=== PATIENT | male | born 1945 | race Caucasian/White ===

== ENCOUNTER 2023-07-20 11:38 | Outpatient (CLI) | payer OTHER, SELFPAY ==
--- OUTSIDE RECORDS SUMMARY | 2023-07-20 11:52 | XMS_ITS | Continuity of Care Document ---
Author Name [facility] Organization [facility] Care Team Providers Care Chief Vendor Quality Name Role Phone [facility] Unavailable Unavailable Problems Combined list of problems from Department of Defense and Veterans Affairs facilities. It does not include entries that were removed or entered in error. Problem Status Onset Date Problem Type Date of Resolution Comments Source Anemia (SCT 090056686) Active Condition [facility] ([facility]) Cataract Active Condition [facility] ([facility]) Chronic kidney disease stage 3 Active Condition [facility] ([facility]) COPD - Chronic Obstructive Pulmonary Disease (SCT 40155464) Active Condition [facility] ([facility]) Diabetes Mellitus Type 2 (SCT 24412208) Active Condition [facility] ([facility]) Hyperlipidemia ([facility] 91369800) Active Condition [facility] (OC) Low back pain Active Condition Aug Entered By: CHANDLER CARVER Comment: CT Chest (06/03/2018) showed T12 myeloma lesion and bilateral ribs [facility] (OC) Myeloma Active Condition Aug 22 Entered By: CHANDLER CARVER Comment: Plasma Cell Myeloma (Dx 03/2018) [facility] Seasonal allergy Active Condition [facility] ([facility]) Diagnosis: ICD-10-CM N18.9 Chronic kidney disease, unspecified Active Diagnosis [facility] Diagnosis: ICD-10-CM C90.00 Multiple myeloma not having achieved remission Active Diagnosis [facility] Diagnosis: ICD-10-CM Z23 Encounter for immunization Active Diagnosis [facility] ([facility]) Diagnosis: ICD-10-CM J44.1 Chronic obstructive pulmonary disease w (acute) exacerbation Active Diagnosis [facility] ([facility]) Diagnosis: ICD-10-CM E11.9 Type 2 diabetes mellitus without complications Active Diagnosis [facility] Diagnosis: ICD-10-CM Z00.00 Encntr for general adult medical exam w/o abnormal findings Active Diagnosis [facility] ([facility]) Medications Combined list of outpatient medications from Department of Defense and Veterans Affairs facilities.Medications provided include 1) outpatient medications from the last 15 months, and 2) patient-reported medications. Medication Details Route Status Patient Instructions Prescription Expires Prescription Number Last Dispense Date Ordering Provider Order Date Source ALBUTEROL 90MCG/ACTUA T (CFC-F) INHL,ORAL,8 .5GM DOSE COUNTER INHALE 2 PUFFS BY INHALATI ON EVERY 4-6 HOURS NEEDED FOR IMMEDIAT E RELIEF OF SHORTNES S OF BREATH - SHAKE WELL INHALA TION ACTIVE 11/15/2023 [id number] 3 FRID,CHRI STIE L 2022 [place] [facility] ALBUTEROL 90MCG/ACTUA T (CFC-F) INHL,ORAL,8 .5GM DOSE COUNTER INHALE 2 PUFFS BY INHALATI ON EVERY 4-6 HOURS NEEDED FOR IMMEDIAT E RELIEF OF SHORTNES S OF BREATH - SHAKE WELL INHALA TION DISCONT INUED 09/15/2022 [id number] 2 CHEY SHELBY K 2021 [facility] ([facility]) ALBUTEROL/I PRATROPIUM SOLN,INHL INHALE 3 ML ALBUTERO L 2.5% SOLUTION IN NEBULIZE R BY INHALATI ON TWICE A DAY NEEDED INHALA TION ACTIVE CHEY SHELBY K 2021 [facility] ALLOPURINOL 100MG TAB TAKE ONE-HALF TABLET BY MOUTH EVERY DAY ELEVATED URIC ACID ORALLY DISCONT INUED 11/15/2023 [id number] 3 FRID,[facility] L 2022 [facility] ALLOPURINOL 100MG TAB TAKE 50MG BY MOUTH EVERY DAY ELEVATED URIC ACID ORALLY DISCONT INUED (EDIT) 11/15/2023 [id number] 3 [facility] ASCORBIC ACID TAB TAKE EVERY DAY ACTIVE MERI MORENO 2017 [facility] ASPIRIN 81MG TAB,EC TAKE ONE TABLET BY MOUTH EVERY DAY ORALLY ACTIVE MARK YORK 2007 [facility]) CHOLECALCIF PAPI 25MCG (1,000UNIT) TAB TAKE ONE TABLET BY MOUTH EVERY DAY ORALLY ACTIVE JENNIFER CARVER 2017 [facility] CYANOCOBALA MIN 1000MCG TAB TAKE ONE TABLET BY MOUTH EVERY DAY ORALLY ACTIVE 04/10/2024 [id number] 3 BROWN,CHEY NDA K 2022 [facility] CYANOCOBALA MIN 1000MCG TAB TAKE ONE TABLET BY MOUTH EVERY DAY ORALLY DISCONT INUED 04/08/2023 [id number] 3 FRID,CHRI STIE L 2021 [facility] DEXAMETHASO NE 4MG TAB TAKE FIVE TABLETS BY MOUTH EVERY WEEK WITH FOOD OR MILK. THIS IS A COMPONEN T OF A CHEMOTHE RAPY REGIMEN. ORALLY ACTIVE 08/03/2023 [id number] 3 FRID,CHRI STIE L 2022 [facility] DEXAMETHASO NE 4MG TAB TAKE FIVE TABLETS BY MOUTH EVERY WEEK WITH FOOD OR MILK. THIS IS A COMPONEN T OF A CHEMOTHE RAPY REGIMEN. ORALLY DISCONT INUED 07/07/2023 [id number] 3 FRID,CHRI STIE L 2022 [facility] DEXAMETHASO NE 4MG TAB TAKE FIVE TABLETS BY MOUTH ONCE A WEEK WITH FOOD OR MILK. THIS IS A COMPONEN T OF A CHEMOTHE RAPY REGIMEN. ORALLY DISCONT INUED 06/09/2023 [id number] 3 FRID,CHRI STIE L 2022 [facility] DEXAMETHASO NE 4MG TAB TAKE FIVE TABLETS BY MOUTH ONCE A WEEK WITH FOOD OR MILK. THIS IS A COMPONEN T OF A CHEMOTHE RAPY REGIMEN. ORALLY DISCONT INUED 05/17/2023 [id number] 3 FRID,CHRI STIE L 2022 [facility] DEXAMETHASO NE 4MG TAB TAKE FIVE TABLETS BY MOUTH EVERY WEEK WITH FOOD OR MILK. THIS IS A COMPONEN T OF A CHEMOTHE RAPY REGIMEN. ORALLY DISCONT INUED 03/15/2023 [id number] 3 FRID,CHRI STIE L 2022 [facility] DEXAMETHASO NE 4MG TAB TAKE FIVE TABLETS BY MOUTH EVERY WEEK WITH FOOD OR MILK. THIS IS A COMPONEN T OF A CHEMOTHE RAPY REGIMEN. ORALLY DISCONT INUED 01/18/2023 [id number] 3 FRID,CHRI STIE L 2022 [facility] DEXAMETHASO NE 4MG TAB TAKE FIVE TABLETS BY MOUTH EVERY WEEK WITH FOOD OR MILK. THIS IS A COMPONEN T OF A CHEMOTHE RAPY REGIMEN. ORALLY DISCONT INUED 12/21/2022 [id number] 3 BLISS,RAY HELLE L 2022 [facility] DEXAMETHASO NE 4MG TAB TAKE FIVE TABLETS BY MOUTH EVERY WEEK WITH FOOD OR MILK. THIS IS A COMPONEN T OF A CHEMOTHE RAPY REGIMEN. ORALLY DISCONT INUED 11/23/2022 [id number] 3 FRID,CHRI STIE L 2022 [facility] DEXAMETHASO NE 4MG TAB TAKE FIVE TABLETS MOUTH EVERY WEEK WITH FOOD OR MILK. THIS IS A COMPONEN T OF A CHEMOTHE RAPY REGIMEN. ORALLY DISCONT INUED 10/26/2022 [id number] 3 FRID,CHRI STIE L 2022 [facility] DEXAMETHASO NE 4MG TAB TAKE FIVE TABLETS BY MOUTH EVERY WEEK WITH FOOD OR MILK. THIS IS A COMPONEN T OF A CHEMOTHE RAPY REGIMEN. ORALLY DISCONT INUED 08/25/2022 [id number] 3 FRID,CHRI STIE L 2022 [facility] DEXAMETHASO NE 4MG TAB TAKE FIVE TABLETS BY MOUTH EVERY WEEK WITH FOOD OR MILK. THIS IS A COMPONEN T OF A CHEMOTHE RAPY REGIMEN. ORALLY DISCONT INUED 07/28/2022 [id number] 2 FRID,CHRI STIE L 2021 [facility] DEXAMETHASO NE 4MG TAB TAKE FIVE TABLETS BY MOUTH EVERY WEEK WITH FOOD OR MILK. THIS IS A COMPONEN T OF A CHEMOTHE RAPY REGIMEN. ORALLY DISCONT INUED 07/05/2022 [id number] 2 FRID,CHRI STIE L 2021 [facility] DEXAMETHASO NE 4MG TAB TAKE FIVE TABLETS BY MOUTH EVERY WEEK WITH FOOD OR MILK. THIS IS A COMPONEN T OF A CHEMOTHE RAPY REGIMEN. ORALLY DISCONT INUED 06/08/2022 [id number] 2 FRID,CHRI STIE L 2021 [place] [facility] DEXAMETHASO NE 4MG TAB TAKE FIVE TABLETS BY MOUTH EVERY WEEK WITH FOOD OR MILK. THIS IS A COMPONEN T OF A CHEMOTHE RAPY REGIMEN. ORALLY 04/08/2023 [id number] 3 FRID,CHRI STIE L 2022 [place] [facility] DEXAMETHASO NE 4MG TAB TAKE FIVE TABLETS BY MOUTH EVERY WEEK WITH FOOD OR MILK. THIS IS A COMPONEN T OF A CHEMOTHE RAPY REGIMEN. ORALLY 02/11/2023 [id number] 3 FRID,CHRI STIE L 2022 [place] [facility] DEXAMETHASO NE 4MG TAB TAKE FIVE TABLETS BY MOUTH EVERY WEEK WITH FOOD OR MILK. THIS IS A COMPONEN T OF A CHEMOTHE RAPY REGIMEN. ORALLY 09/24/2022 [id number] 3 FRID,CHRI STIE L 2022 [facility] DOXYCYCLINE HYCLATE 50MG CAP TAKE 2 CAPSULES BY MOUTH TWICE A DAY ORALLY ACTIVE CHEY SHELBY K 2022 [facility]) EMPAGLIFLOZ IN 25MG TAB TAKE ONE-HALF TABLET BY MOUTH EVERY MORNING FOR DIABETES AND KIDNEY ORALLY ACTIVE 03/19/2024 [id number] 3 [facility] 2022 [facility] EMPAGLIFLOZ IN 25MG TAB TAKE ONE-HALF TABLET BY MOUTH EVERY MORNING FOR DIABETES AND KIDNEY ORALLY DISCONT INUED 03/07/2023 [id number] 3 [facility] 2021 [facility] FISH OIL 1000MG (500MG DHA/EPA) CAP,ORAL TAKE 1 CAPSULE BY MOUTH TWICE A DAY ORALLY ACTIVE MARK YORK 2007 [facility] [facility]) GLIPIZIDE 10MG TAB TAKE ONE TABLET BY MOUTH TWICE A DAY 30 MINUTES BEFORE MEAL FOR DIABETES ORALLY ACTIVE 12/22/2023 [id number] 4 CHEY SHELBY K 2022 [facility] GLIPIZIDE 10MG TAB TAKE ONE TABLET BY MOUTH TWICE A DAY 30 MINUTES BEFORE MEAL FOR DIABETES ORALLY DISCONT INUED 10/19/2022 [id number] 3 CHEY SHELBY NDA K 2021 [facility] [facility] LENALIDOMID E 10MG CAP,ORAL TAKE ONE CAPSULE BY MOUTH EVERY DAY FOR 21 DAYS THEN 7 DAYS OFF. TAKE WITH A GLASS OF WATER*DO CUMENTAT ION ONLY-KAVITA LED BY [facility] * ORALLY ACTIVE 08/03/2023 [id number] 4 [facility] LENALIDOMID E 10MG CAP,ORAL TAKE ONE CAPSULE BY MOUTH EVERY DAY FOR 21 DAYS THEN 7 DAYS OFF. TAKE WITH A GLASS OF WATER*DO CUMENTAT ION ONLY-KAVITA [facility] * ORALLY DISCONT INUED 07/07/2023 [id number] 3 [facility] LENALIDOMID E 10MG CAP,ORAL TAKE ONE CAPSULE BY MOUTH EVERY DAY FOR 21 DAYS THEN 7 DAYS OFF. TAKE WITH A GLASS OF WATER. [facility] MAILS TO PATIENT ORALLY DISCONT INUED 06/09/2023 [id number] 3 [facility] LENALIDOMID E 10MG CAP,ORAL TAKE ONE CAPSULE BY MOUTH EVERY DAY FOR 21 DAYS AND THEN 7 DAYS OFF*TAKE WITH A GLASS OF WATER--D OCUMENTA TION ONLY--DANITZA ILED TO PATIENT BY [facility] ORALLY DISCONT INUED 05/17/2023 [id number] 3 [facility] LENALIDOMID E 10MG CAP,ORAL TAKE ONE CAPSULE BY MOUTH EVERY DAY FOR 21 DAYS THEN 7 DAYS OFF. SWALLOW WHOLE WITH WATER*FO R DOCUMENT ATION ONLY-KAVITA [facility] ORALLY DISCONT INUED 03/15/2023 [id number] 3 FRID,HEMA Carlos 2022 [facility] LENALIDOMID E 10MG CAP,ORAL TAKE ONE CAPSULE BY MOUTH EVERY DAY FOR 21 DAYS AND THEN 7 DAYS OFF. SWALLOW WHOLE WITH WATER *FOR DOCUMENT ATION ONLY - [facility]ILLED [facility] * ORALLY DISCONT INUED 01/18/2023 [id number] 3 FRID,HEMA Carlos 2022 [facility] LENALIDOMID E 10MG CAP,ORAL TAKE ONE CAPSULE BY MOUTH EVERY DAY FOR 21 DAYS AND THEN 7 DAYS OFF. SWALLOW WHOLE WITH WATER *FOR DOCUMENT ATION ONLY - FILLED [facility] * ORALLY DISCONT INUED 12/21/2022 [id number] 3 BLISSRAY L 2022 [place] [facility] LENALIDOMID E 10MG CAP,ORAL TAKE ONE CAPSULE BY MOUTH EVERY DAY FOR 21 DAYS AND THEN 7 DAYS OFF. SWALLOW WHOLE WITH WATER*FO R DOCUMENT ATION ONLY-KAVITA LED BY [facility] * ORALLY DISCONT INUED 11/23/2022 [id number] 3 FRID,HEMA Carlos 2022 [facility] LENALIDOMID E 10MG CAP,ORAL TAKE ONE CAPSULE BY MOUTH EVERY DAY FOR 21 DAYS AND THEN 7 DAYS OFF. SWALLOW WHOLE WITH WATER *FOR DOCUMENT ATION ONLY - FILLED [facility] * ORALLY DISCONT INUED 10/26/2022 [id number] 3 FRID,HEMA Carlos 2022 [facility] LENALIDOMID E 10MG CAP,ORAL TAKE ONE CAPSULE BY MOUTH EVERY DAY FOR 21 DAYS THEN 7 DAYS OFF *TAKE WITH A GLASS OF WATER--D OCUMENTA TION ONLY--MA ILED TO PATIENT BY [facility] ORALLY DISCONT INUED 08/25/2022 [id number] 3 FRID,HEMA Carlos 2022 [place] [facility] LENALIDOMID E 10MG CAP,ORAL TAKE ONE CAPSULE BY MOUTH EVERY DAY FOR 21 DAYS THEN 7 DAYS OFF *TAKE WITH A GLASS OF WATER--D OCUMENTA TION ONLY--MA ILED TO PATIENT BY [facility] ORALLY DISCONT INUED 07/28/2022 [id number] 2 FRID,CHRI STIE L 2021 [place] [facility] LENALIDOMID E 10MG CAP,ORAL TAKE ONE CAPSULE BY MOUTH EVERY DAY FOR 21 DAYS THEN 7 DAYS OFF *TAKE WITH A GLASS OF WATER--D OCUMENTA TION ONLY--MA ILED TO PATIENT [facility] ORALLY DISCONT INUED 07/05/2022 [id number] 2 FRID,CHRI STIE L 2021 [place] [facility] LENALIDOMID E 10MG CAP,ORAL TAKE ONE CAPSULE BY MOUTH EVERY DAY FOR 21 DAYS THEN 7 DAYS OFF-DOCU MENTATIO N ONLY-ANKITA LED BY [facility] ORALLY DISCONT INUED 06/08/2022 [id number] 2 FRID,CHRI STIE L 2021 [place] [facility] LENALIDOMID E 10MG CAP,ORAL TAKE ONE CAPSULE BY MOUTH EVERY DAY FOR 21 DAYS AND THEN 7 DAYS OFF. SWALLOW WHOLE WITH WATER *FOR DOCUMENT ATION ONLY - FILLED BY [facility] * ORALLY 04/08/2023 [id number] 3 FRID,CHRI STIE L 2022 [facility] LENALIDOMID E 10MG CAP,ORAL TAKE ONE CAPSULE BY MOUTH EVERY DAY FOR 21 DAYS AND THEN 7 DAYS OFF. SWALLOW WHOLE WITH WATER *FOR DOCUMENT ATION ONLY - FILLED BY [facility] * ORALLY 02/11/2023 [id number] 3 FRID,CHRI STIE L 2022 [facility] LENALIDOMID E 10MG CAP,ORAL TAKE ONE CAPSULE BY MOUTH EVERY DAY FOR 21 DAYS AND THEN 7 DAYS OFF. SWALLOW WHOLE WITH WATER *FOR DOCUMENT ATION ONLY - FILLED BY [facility] * ORALLY 09/24/2022 [id number] 3 FRID,CHRI STIE L 2022 [facility] LORATADINE 10MG TAB TAKE ONE TABLET BY MOUTH PRN ORALLY ACTIVE KWABENA ANGEL 2010 [facility] MAGNESIUM OXIDE 420MG TAB TAKE ONE TABLET BY MOUTH TWICE A DAY FOR LOW MAGNESIU M ORALLY ACTIVE 09/23/2023 [id number] 3 FRID,CHRI STIE L 2022 [facility] MAGNESIUM OXIDE 420MG TAB TAKE ONE TABLET BY MOUTH TWICE A DAY FOR LOW MAGNESIU M ORALLY DISCONT INUED 11/09/2022 [id number] 3 FRID,CHRI STIE L 2021 [facility] METFORMIN HCL 1000MG TAB TAKE ONE TABLET BY MOUTH EVERY DAY TO DECREASE BLOOD SUGAR ORALLY ACTIVE 04/10/2024 [id number] 3 CHEY SHELBY 2022 [facility] METFORMIN HCL 1000MG TAB TAKE ONE TABLET BY MOUTH EVERY DAY TO DECREASE BLOOD SUGAR ORALLY DISCONT INUED 04/03/2023 [id number] 3 CHEY SHELBY 2021 [facility] MOMETASONE FUROATE 100MCG/ACTU AT INHL,ORAL,1 20D,13GM INHALE 2 PUFFS BY MOUTH TWICE A DAY FOR COPD INHALA TION ORAL ACTIVE 04/10/2024 [id number] 3 CHEY SHELBY 2022 [facility]) MOMETASONE FUROATE 100MCG/ACTU AT INHL,ORAL,1 20D,13GM INHALE 2 PUFFS BY MOUTH TWICE A DAY RINSE MOUTH AFTER USING ORALLY 09/15/2022 [id number] 3 CHEY SHELBY 2021 [facility] MULTIVITAMI NS CAP/TAB TAKE ONE TABLET BY MOUTH EVERY DAY ORALLY ACTIVE Sirisha SANTIAGO 2015 [facility]) NYSTATIN [id number]/M L SUSP,ORAL TAKE 1 TEASPOON FUL BY MOUTH FOUR TIMES A DAY FOR INTERMIT TENT THRUSH * MAKE SURE YOU SWISH AND THEN SWALLOW* ORALLY ACTIVE 03/09/2024 [id number] 3 FRID,CHRI STIE L 2022 [facility] OLODATEROL 2.5MCG/TIOT ROPIUM 2.5MCG/ACTU AT INHL,ORAL,6 0D,4GM INHALE 2 PUFFS BY INHALATI ON EVERY DAY TO PREVENT TROUBLE BREATHIN G INHALA TION ACTIVE 04/10/2024 [id number] 3 CHEY SHELBY K 2022 [facility]) OLODATEROL 2.5MCG/TIOT ROPIUM 2.5MCG/ACTU AT INHL,ORAL,6 0D,4GM INHALE 2 PUFFS BY INHALATI ON EVERY DAY TO PREVENT TROUBLE BREATHIN G INHALA TION DISCONT INUED 04/03/2023 [id number] 3 CHEY SHELBY K 2021 [facility]) PHOSPHORUS 250MG/POTAS SIUM 280MG/SODIU M 160MG/PKT PWDR TAKE 1 PACKET BY MOUTH TWICE A DAY *MIX PACKET WITH 2.5 ML OF WATER OR JUICE. STIR WELL AND DRINK PROMPTLY ORALLY ACTIVE 07/17/2024 [id number] 4 FRID,CHRI STIE L 2023 [facility] PHOSPHORUS 250MG/POTAS SIUM 280MG/SODIU M 160MG/PKT PWDR TAKE 1 PACKET BY MOUTH TWICE A DAY *MIX PACKET WITH 2.5 ML OF WATER OR JUICE. STIR WELL AND DRINK PROMPTLY ORALLY DISCONT INUED 04/08/2023 [id number] 3 FRID,CHRI STIE L 2021 [facility] PROCHLORPER AZINE MALEATE 10MG TAB TAKE ONE TABLET BY MOUTH EVERY 6 HOURS NEEDED FOR NAUSEA AND VOMITING . DO NOT TAKE MORE THAN 40 MG PER DAY. ORALLY HOLD 11/22/2023 [id number] RAY MCCORMICK L 2022 [facility] PROCHLORPER AZINE MALEATE 10MG TAB TAKE ONE TABLET BY MOUTH EVERY 6 HOURS NEEDED FOR NAUSEA AND VOMITING . DO NOT TAKE MORE THAN 40 MG PER DAY. ORALLY 11/13/2022 [id number] FRID,CHRI STIE L 2021 [facility] Allergies, Adverse Reactions, Alerts Combined list of allergies from Department of Defense and Veterans Affairs facilities. It does not include entries that were removed or entered in error. Substance Category Reaction Severity Reaction type Status Date Reported Comments Source ATORVASTATIN Propensity to adverse reactions to drug (finding) Pain in lower limb active 6 [facility] SIMVASTATIN Propensity to adverse reactions to drug (finding) Muscle pain active 6 [facility] Immunizations Combined list of available immunizations from the Department of [facility] and Veterans Affairs facilities. Immunization Series Date Given Administered By Site Reaction Lot Number CVX Code Drug Appetizer Packer Status Comments Source COVID-19 ([place]), MRNA, LNP-S, PF, ANGE-SUCROSE, 30 MCG/0.3 ML (AGES 12+ YEARS) 1 2022 Kaleb BARRERA LEFT DELTO ID [id number] 309 complet ed upper left deltoid [facility]) ZOSTER RECOMBINANT 2 2022 Kaleb BARRERA LEFT DELTO ID [id number] 187 complet ed DILUENT LOT#[id number] , exp. 01/13/2024 given in upper left deltoid. [facility] INFLUENZA, HIGH-DOSE, QUADRIVALENT 2022 Kaleb BARRERA LEFT DELTO ID [id number] 197 complet ed [facility]) ZOSTER RECOMBINANT 1 2022 Kaleb BARRERA LEFT DELTO ID [id number] 187 complet ed DILUENT LOT# [id number] [facility] COVID-19 ([place]), MRNA, LNP-S, BIVALENT BOOSTER, PF, 30 MCG/0.3 ML DOSE 1 2022 SETH ARIZA LEFT DELTO ID [id number] 300 complet ed [facility]) INFLUENZA VACCINE, QUADRIVALENT, ADJUVANTED 2021 205 complet ed [facility] COVID-19 (PFIZER), MRNA, LNP-S, PF, 30 MCG/0.3 ML DOSE, ANGE-SUCROSE (AGES 12+ YEARS) 2021 217 complet ed [place] [facility] 2020 115 complet ed [place] [facility] COVID-19 (PFIZER), MRNA, LNP-S, PF, 30 MCG/0.3 ML DOSE 3 2020 208 complet ed PFR; [id number]; 1 [facility] INFLUENZA, INJECTABLE, QUADRIVALENT, PRESERVATIVE FREE 2020 150 complet ed [facility] COVID-19 (PFIZER), MRNA, LNP-S, PF, 30 MCG/0.3 ML DOSE 2 2020 208 complet ed PFR; [id number]; 1 [facility] COVID-19 (PFIZER), MRNA, LNP-S, PF, 30 MCG/0.3 ML DOSE 1 2020 208 complet ed PFR; [id number]; 1 [facility] INFLUENZA, INJECTABLE, QUADRIVALENT, PRESERVATIVE FREE 2019 150 complet ed [facility] INFLUENZA, SEASONAL, INJECTABLE, PRESERVATIVE FREE 2018 140 complet ed [facility] INFLUENZA, SEASONAL, INJECTABLE, PRESERVATIVE FREE 2017 140 complet ed [facility] INFLUENZA, HIGH DOSE SEASONAL 2016 135 complet ed [facility] TDAP 2016 115 complet ed gsk, [id number], 02-22-2019 [facility] INFLUENZA, HIGH DOSE SEASONAL 2014 135 complet ed [facility] PNEUMOCOCCAL CONJUGATE PCV 13 2014 133 complet ed [employer] Lot #[id number] Exp. 07/2016 [facility] PNEUMOCOCCAL, UNSPECIFIED FORMULATION 2012 109 complet ed [employer] [id number] [facility] ZOSTER LIVE 2011 121 complet ed [employer] Lot #[id number] Exp. 08/10/2012 [facility] INFLUENZA, UNSPECIFIED FORMULATION 2010 88 complet ed [facility] INFLUENZA, UNSPECIFIED FORMULATION 2009 88 complet ed [facility] INFLUENZA, UNSPECIFIED FORMULATION 2008 88 complet ed [facility] INFLUENZA, UNSPECIFIED FORMULATION 2007 88 complet ed [facility] PNEUMOCOCCAL POLYSACCHARID E [id number] 2007 33 complet ed [place] [facility] ZOSTER LIVE 2007 121 complet ed [facility] INFLUENZA, SEASONAL, INJECTABLE, PRESERVATIVE FREE 2006 140 complet ed [facility] TDAP 2006 115 complet ed Before Surgery for hernia [facility] PNEUMOCOCCAL, UNSPECIFIED FORMULATION 2006 109 complet ed [facility] TD (ADULT), 2 LF TETANUS TOXOID, PRESERVATIVE FREE, ADSORBED 2005 09 complet ed [facility] INFLUENZA, SEASONAL, INJECTABLE 1995 141 complet ed [facility] TD (ADULT), 2 LF TETANUS TOXOID, PRESERVATIVE FREE, ADSORBED 1991 09 complet ed [facility] Results Combined list of recent chemistry, hematology and other laboratory results from Department of Defense and Veterans Affairs, ranging from 15 months to all on record, depending upon the facility. Order Name Results Value Reference Range Date Interpretation Specimen Comments Source CBC & DIFF LEUKOCYTES [#/VOLUME] IN BLOOD BY AUTOMATED COUNT 4.29 4.0 - 11.0 07/04 Specimen Type: BLOOD Comment: Automated Differentia l Performed Ordering Provider: XENIA SALGADO Report Released Date/Time: Jun 05, 2023 01:14 PM Reporting Lab: [facility] [address] Performing Lab: [facility] [address] [facility] CBC & DIFF ERYTHROCYT ES [#/VOLUME] IN BLOOD BY AUTOMATED COUNT 3.95 4.6 - 6.2 07/04 L Specimen Type: BLOOD Comment: Automated Differentia l Performed Ordering Provider: XENIA SALGADO Report Released Date/Time: Jun 05, 2023 01:14 PM Reporting Lab: [facility] [address] Performing Lab: [facility] [address] [facility] CBC & DIFF HEMOGLOBIN [MASS/VOLU ME] IN BLOOD 13.0 13.5 - 17.9 07/04 L Specimen Type: BLOOD Comment: Automated Differentia l Performed Ordering Provider: XENIA SALGADO Report Released Date/Time: Jun 05, 2023 01:14 PM Reporting Lab: [facility] [address] Performing Lab: [facility] [address] [place] [facility] CBC & DIFF HEMATOCRIT [VOLUME FRACTION] OF BLOOD BY AUTOMATED COUNT 39.2 41 - 54 07/04 L Specimen Type: BLOOD Comment: Automated Differentia l Performed Ordering Provider: XENIA SALGDAO Report Released Date/Time: Jun 05, 2023 01:14 PM Reporting Lab: [facility] [address] Performing Lab: [facility] [address] [place] [facility] CBC & DIFF MCV [ENTITIC VOLUME] BY AUTOMATED COUNT 99.2 80 - 100 07/04 Specimen Type: BLOOD Comment: Automated Differentia l Performed Ordering Provider: XENIA SALGADO Report Released Date/Time: Jun 05, 2023 01:14 PM Reporting Lab: [facility] [address] Performing Lab: [facility] [address] [place] [facility] CBC & DIFF MCH [ENTITIC MASS] BY AUTOMATED COUNT 32.9 27 - 33 07/04 Specimen Type: BLOOD Comment: Automated Differentia l Performed Ordering Provider: XENIA SALGADO Report Released Date/Time: Jun 05, 2023 01:14 PM Reporting Lab: [facility] [id number] Performing Lab: [facility] [address] [place] [facility] CBC & DIFF MCHC [MASS/VOLU ME] BY AUTOMATED COUNT 33.2 32.0 - 37.5 07/04 Specimen Type: BLOOD Comment: Automated Differentia l Performed Ordering Provider: XENIA SALGADO Report Released Date/Time: Jun 05, 2023 01:14 PM Reporting Lab: [facility] [id number] Performing Lab: [facility] [address] [place] [facility] CBC & DIFF PLATELETS [#/VOLUME] IN BLOOD BY AUTOMATED COUNT 123 150 - 400 07/04 L Specimen Type: BLOOD Comment: Automated Differentia l Performed Ordering Provider: XENIA SALGADO L Report Released Date/Time: Jun 05, 2023 01:14 PM Reporting Lab: [facility] [id number] Performing Lab: [facility] [address] [place] [facility] CBC & DIFF PLATELET MEAN VOLUME [ENTITIC VOLUME] IN BLOOD BY AUTOMATED COUNT 10.0 7.4 - 10.4 07/04 Specimen Type: BLOOD Comment: Automated Differentia l Performed Ordering Provider: XENIA SALGADO Report Released Date/Time: Jun 05, 2023 01:14 PM Reporting Lab: [facility] [phone] Performing Lab: [facility] [address] [place] [facility] CBC & DIFF NEUTROPHIL S/100 LEUKOCYTES IN BLOOD BY MANUAL COUNT 52.2 40.0 - 80.0 07/04 Specimen Type: BLOOD Comment: Automated Differentia l Performed Ordering Provider: XENIA SALGADO Report Released Date/Time: Jun 05, 2023 01:14 PM Reporting Lab: [facility] [phone] Performing Lab: [facility] [phone] [place] [facility] CBC & DIFF LYMPHOCYTE S/100 LEUKOCYTES IN BLOOD BY MANUAL COUNT 26.3 15.0 - 45.0 07/04 Specimen Type: BLOOD Comment: Automated Differentia l Performed Ordering Provider: XENIA SALGADO Report Released Date/Time: Jun 05, 2023 01:14 PM Reporting Lab: [place] [facility] [address] Performing Lab: [facility] [address] [place] [facility] CBC & DIFF MONOCYTES/ 100 LEUKOCYTES IN BLOOD BY AUTOMATED COUNT 10.3 2.0 - 12.0 07/04 Specimen Type: BLOOD Comment: Automated Differentia l Performed Ordering Provider: XENIA SALGADO Report Released Date/Time: Jun 05, 2023 01:14 PM Reporting Lab: [facility] [address] Performing Lab: [facility] [address] [place] [facility] CBC & DIFF EOSINOPHIL S/100 LEUKOCYTES IN BLOOD BY AUTOMATED COUNT 8.4 0.0 - 6.0 07/04 H Specimen Type: BLOOD Comment: Automated Differentia l Performed Ordering Provider: XENIA SALGADO Report Released Date/Time: Jun 05, 2023 01:14 PM Reporting Lab: [facility] [address] Performing Lab: [facility] [address] [place] [facility] CBC & DIFF BASOPHILS/ 100 LEUKOCYTES IN BLOOD BY MANUAL COUNT 1.9 0.0 - 2.0 07/04 Specimen Type: BLOOD Comment: Automated Differentia l Performed Ordering Provider: XENIA SALGADO Report Released Date/Time: Jun 05, 2023 01:14 PM Reporting Lab: [facility] [address] Performing Lab: [facility] [address] [place] [facility] CBC & DIFF ERYTHROCYT E DISTRIBUTI ON WIDTH [RATIO] BY AUTOMATED COUNT 14.6 11.5 - 14.5 07/04 H Specimen Type: BLOOD Comment: Automated Differentia l Performed Ordering Provider: XENIA SALGADO Report Released Date/Time: Jun 05, 2023 01:14 PM Reporting Lab: [facility] [address] Performing Lab: [facility] [address] [place] [facility] CBC & DIFF LYMPHOCYTE S [#/VOLUME] IN BLOOD BY AUTOMATED COUNT 1.13 1.0 - 4.0 07/04 Specimen Type: BLOOD Comment: Automated Differentia l Performed Ordering Provider: XENIA SALGADO Report Released Date/Time: Jun 05, 2023 01:14 PM Reporting Lab: [facility] [address] Performing Lab: [facility] [address] [place] [facility] CBC & DIFF MONOCYTES [#/VOLUME] IN BLOOD BY AUTOMATED COUNT 0.44 0.1 - 1.0 07/04 Specimen Type: BLOOD Comment: Automated Differentia l Performed Ordering Provider: XENIA SALGADO Report Released Date/Time: Jun 05, 2023 01:14 PM Reporting Lab: [facility] [address] Performing Lab: [facility] [address] [place] [facility] CBC & DIFF NEUTROPHIL S [#/VOLUME] IN BLOOD BY AUTOMATED COUNT 2.24 2.0 - 7.7 07/04 Specimen Type: BLOOD Comment: Automated Differentia l Performed Ordering Provider: XENIA SALGADO Report Released Date/Time: Jun 05, 2023 01:14 PM Reporting Lab: [facility] [address] Performing Lab: [facility] [address] [place] [facility] CBC & DIFF EOSINOPHIL S [#/VOLUME] IN BLOOD BY AUTOMATED COUNT 0.36 0 - 0.5 07/04 Specimen Type: BLOOD Comment: Automated Differentia l Performed Ordering Provider: XENIA SALGADO Report Released Date/Time: Jun 05, 2023 01:14 PM Reporting Lab: [facility] [address] Performing Lab: [facility] [address] [place] [facility] CBC & DIFF BASOPHILS [#/VOLUME] IN BLOOD BY AUTOMATED COUNT 0.08 0 - 0.2 07/04 Specimen Type: BLOOD Comment: Automated Differentia l Performed Ordering Provider: XENIA SALGADO Report Released Date/Time: Jun 05, 2023 01:14 PM Reporting Lab: [facility] [address] Performing Lab: [facility] [address] [place] [facility] CBC & DIFF IG(META,MY ZOFIA,PRO) 0.9 07/04 Specimen Type: BLOOD Comment: Automated Differentia l Performed Ordering Provider: XENIA SALGADO Report Released Date/Time: Jun 05, 2023 01:14 PM Reporting Lab: [facility] [address] Performing Lab: [facility] [address] [place] [facility] CBC & DIFF IMMATURE GRANULOCYT ES [PRESENCE] IN BLOOD BY AUTOMATED COUNT 0.04 0 - 0.1 07/04 Specimen Type: BLOOD Comment: Automated Differentia l Performed Ordering Provider: XENIA SALGADO Report Released Date/Time: Jun 05, 2023 01:14 PM Reporting Lab: [facility] [address] Performing Lab: [facility] [address] [place] [facility] COMPREHE NSIVE METABOLI C PANEL+MG CREATININE [MASS/VOLU ME] IN SERUM OR PLASMA 2.0 0.7 - 1.2 07/04 H Specimen Type: PLASMA Comment: Automated Differentia l Performed Ordering Provider: XENIA SALGADO Report Released Date/Time: Jun 05, 2023 01:14 PM Reporting Lab: [facility] [address] Performing Lab: [facility] [address] [place] [facility] COMPREHE NSIVE METABOLI C PANEL+MG UREA NITROGEN [MASS/VOLU ME] IN SERUM OR PLASMA 19 8 - 26 07/04 Specimen Type: PLASMA Comment: Automated Differentia l Performed Ordering Provider: XENIA SALGADO Report Released Date/Time: Jun 05, 2023 01:14 PM Reporting Lab: [facility] [address] Performing Lab: [facility] [address] [place] [facility] COMPREHE NSIVE METABOLI C PANEL+MG GLUCOSE [MASS/VOLU ME] IN SERUM OR PLASMA 133 70 - 100 07/04 H Specimen Type: PLASMA Comment: Automated Differentia l Performed Ordering Provider: XENIA SALGADO Report Released Date/Time: Jun 05, 2023 01:14 PM Reporting Lab: [facility] [address] Performing Lab: [facility] [address] [place] [facility] COMPREHE NSIVE METABOLI C PANEL+MG SODIUM [MOLES/VOL UME] IN SERUM OR PLASMA 143 136 - 145 07/04 Specimen Type: PLASMA Comment: Automated Differentia l Performed Ordering Provider: XENIA SALGADO Report Released Date/Time: Jun 05, 2023 01:14 PM Reporting Lab: [facility] [address] Performing Lab: [facility] [address] [place] [facility] COMPREHE NSIVE METABOLI C PANEL+MG POTASSIUM [MOLES/VOL UME] IN SERUM OR PLASMA 4.1 3.5 - 5.1 07/04 Specimen Type: PLASMA Comment: Automated Differentia l Performed Ordering Provider: XENIA SALGADO Report Released Date/Time: Jun 05, 2023 01:14 PM Reporting Lab: [facility] [address] Performing Lab: [facility] [address] [place] [facility] COMPREHE NSIVE METABOLI C PANEL+MG CHLORIDE [MOLES/VOL UME] IN SERUM OR PLASMA 109 98 - 107 07/04 H Specimen Type: PLASMA Comment: Automated Differentia l Performed Ordering Provider: XENIA SALGADO Report Released Date/Time: Jun 05, 2023 01:14 PM Reporting Lab: [facility] [address] Performing Lab: [facility] [address] [place] [facility] COMPREHE NSIVE METABOLI C PANEL+MG CARBON DIOXIDE, TOTAL [MOLES/VOL UME] IN SERUM OR PLASMA - 07/04 L Specimen Type: PLASMA Comment: Automated Differentia l Performed Ordering Provider: XENIA SALGADO Report Released Date/Time: Jun 05, 2023 01:14 PM Reporting Lab: [facility] [address] Performing Lab: [facility] [address] [place] [facility] COMPREHE NSIVE METABOLI C PANEL+MG CALCIUM [MASS/VOLU ME] IN SERUM OR PLASMA 9.4 8.4 - 10.2 07/04 Specimen Type: PLASMA Comment: Automated Differentia l Performed Ordering Provider: XENIA SALGADO Report Released Date/Time: Jun 05, 2023 01:14 PM Reporting Lab: [facility] [address] Performing Lab: [facility] [address] [place] [facility] COMPREHE NSIVE METABOLI C PANEL+MG PROTEIN [MASS/VOLU ME] IN SERUM OR PLASMA 6.6 6.0 - 8.3 07/04 Specimen Type: PLASMA Comment: Automated Differentia l Performed Ordering Provider: XENIA SALGADO Report Released Date/Time: Jun 05, 2023 01:14 PM Reporting Lab: [facility] [address] Performing Lab: [facility] [address] [place] [facility] COMPREHE NSIVE METABOLI C PANEL+MG ALBUMIN [MASS/VOLU ME] IN SERUM OR PLASMA 4.1 3.5 - 5.2 07/04 Specimen Type: PLASMA Comment: Automated Differentia l Performed Ordering Provider: XENIA SALGADO L Report Released Date/Time: Jun 05, 2023 01:14 PM Reporting Lab: [facility] [address] Performing Lab: [facility] [address] [place] [facility] COMPREHE NSIVE METABOLI C PANEL+MG BILIRUBIN. TOTAL [MASS/VOLU ME] IN SERUM OR PLASMA 0.6 0.2 - 1.2 07/04 Specimen Type: PLASMA Comment: Automated Differentia l Performed Ordering Provider: XENIA SALGADO Report Released Date/Time: Jun 05, 2023 01:14 PM Reporting Lab: [facility] [address] Performing Lab: [facility] [address] [place] [facility] COMPREHE NSIVE METABOLI C PANEL+MG MAGNESIUM [MASS/VOLU ME] IN SERUM OR PLASMA 2.1 1.6 - 2.6 07/04 Specimen Type: PLASMA Comment: Automated Differentia l Performed Ordering Provider: XENIA SALGADO Report Released Date/Time: Jun 05, 2023 01:14 PM Reporting Lab: [facility] [address] Performing Lab: [facility] [address] [place] [facility] COMPREHE NSIVE METABOLI C PANEL+MG ANION GAP IN SERUM OR PLASMA 13 5 - 15 07/04 Specimen Type: PLASMA Comment: Automated Differentia l Performed Ordering Provider: XENIA SALGADO L Report Released Date/Time: Jun 05, 2023 01:14 PM Reporting Lab: [facility] [address] Performing Lab: [facility] [address] [place] [facility] COMPREHE NSIVE METABOLI C PANEL+MG ALKALINE PHOSPHATAS E [ENZYMATIC ACTIVITY/V OLUME] IN SERUM OR PLASMA 138 40 - 150 07/04 Specimen Type: PLASMA Comment: Automated Differentia l Performed Ordering Provider: XENIA SALGADO Report Released Date/Time: Jun 05, 2023 01:14 PM Reporting Lab: [facility] [address] Performing Lab: [facility] [address] [place] [facility] COMPREHE NSIVE METABOLI C PANEL+MG ALANINE AMINOTRANS FERASE [ENZYMATIC ACTIVITY/V OLUME] IN SERUM OR PLASMA 31 <55 - 55 07/04 Specimen Type: PLASMA Comment: Automated Differentia l Performed Ordering Provider: XENIA SALGADO Report Released Date/Time: Jun 05, 2023 01:14 PM Reporting Lab: [facility] [address] Performing Lab: [facility] [address] [place] [facility] COMPREHE NSIVE METABOLI C PANEL+MG ASPARTATE AMINOTRANS FERASE [ENZYMATIC ACTIVITY/V OLUME] IN SERUM OR PLASMA 23 <34 - 34 07/04 Specimen Type: PLASMA Comment: Automated Differentia l Performed Ordering Provider: XENIA SALGADO Report Released Date/Time: Jun 05, 2023 01:14 PM Reporting Lab: [facility] [address] Performing Lab: [facility] [address] [place] [facility] COMPREHE NSIVE METABOLI C PANEL+MG GLOMERULAR FILTRATION RATE/1.73 SQ M.PREDICTE D [VOLUME RATE/AREA] IN SERUM, PLASMA OR BLOOD BY CREATININE -BASED FORMULA (CKD-EPI 2020) 34 60 07/04 L Specimen Type: PLASMA Comment: Automated Differentia l Performed Ordering Provider: XENIA SALGADO Report Released Date/Time: Jun 05, 2023 01:14 PM Reporting Lab: [facility] [address] Performing Lab: [facility] [address] [place] [facility] ELP/IMMF IX,SERUM PANEL PROTEIN [MASS/VOLU ME] IN SERUM OR PLASMA 6.2 6.0 - 8.3 07/04 Specimen Type: SERUM Comment: IM FIX ADDED - Band(s) present. See Identificat ion in report. Peak(s) too small to quantitate. Ordering Provider: XENIA SALGADO Report Released Date/Time: Jun 05, 2023 01:14 PM Reporting Lab: [facility] [address] Performing Lab: [facility] [address] [place] [facility] ELP/IMMF IX,SERUM PANEL IMMUNOFIXA TION FOR SERUM OR PLASMA IgA lambda 07/04 Specimen Type: SERUM Comment: IM FIX ADDED - Band(s) present. See Identificat ion in report. Peak(s) too small to quantitate. Ordering Provider: XENIA SALGADO Report Released Date/Time: Jun 05, 2023 01:14 PM Reporting Lab: [place] [address] Performing Lab: [address] [facility] ELP/IMMF IX,SERUM PANEL ALBUMIN [MASS/VOLU ME] IN SERUM OR PLASMA BY ELECTROPHO RESIS 3.97 3.66 - 4.78 07/04 Specimen Type: SERUM Comment: IM FIX ADDED - Band(s) present. See Identificat ion in report. Peak(s) too small to quantitate. Ordering Provider: XENIA SALGADO Report Released Date/Time: Jun 05, 2023 01:14 PM Reporting Lab: [place] [address] Performing Lab: [place] [address] [place] [facility] ELP/IMMF IX,SERUM PANEL ALPHA 1 GLOBULIN [MASS/VOLU ME] IN SERUM OR PLASMA BY ELECTROPHO RESIS 0.30 0.14 - 0.38 07/04 Specimen Type: SERUM Comment: IM FIX ADDED - Band(s) present. See Identificat ion in report. Peak(s) too small to quantitate. Ordering Provider: XENIA SALGADO Report Released Date/Time: Jun 05, 2023 01:14 PM Reporting Lab: [place] [address] Performing Lab: [place] [address] [place] [facility] ELP/IMMF IX,SERUM PANEL ALPHA 2 GLOBULIN [MASS/VOLU ME] IN SERUM OR PLASMA BY ELECTROPHO RESIS 0.89 0.50 - 0.90 07/04 Specimen Type: SERUM Comment: IM FIX ADDED - Band(s) present. See Identificat ion in report. Peak(s) too small to quantitate. Ordering Provider: XENIA SALGADO Report Released Date/Time: Jun 05, 2023 01:14 PM Reporting Lab: [facility] [address] Performing Lab: [facility] [address] [place] [facility] ELP/IMMF IX,SERUM PANEL BETA 1 GLOBULIN [MASS/VOLU ME] IN SERUM OR PLASMA BY ELECTROPHO RESIS 0.42 0.33 - 0.55 07/04 Specimen Type: SERUM Comment: IM FIX ADDED - Band(s) present. See Identificat ion in report. Peak(s) too small to quantitate. Ordering Provider: XENIA SALGADO Report Released Date/Time: Jun 05, 2023 01:14 PM Reporting Lab: [facility] [address] Performing Lab: [place] [address] [place] [facility] ELP/IMMF IX,SERUM PANEL BETA 2 GLOBULIN [MASS/VOLU ME] IN SERUM OR PLASMA BY ELECTROPHO RESIS 0.29 0.20 - 0.52 07/04 Specimen Type: SERUM Comment: IM FIX ADDED - Band(s) present. See Identificat ion in report. Peak(s) too small to quantitate. Ordering Provider: XENIA SALGADO Report Released Date/Time: Jun 05, 2023 01:14 PM Reporting Lab: [facility] [address] Performing Lab: [facility] [address] [place] [facility] ELP/IMMF IX,SERUM PANEL GAMMA GLOBULIN [MASS/VOLU ME] IN SERUM OR PLASMA BY ELECTROPHO RESIS 0.33 0.58 - 1.72 07/04 L Specimen Type: SERUM Comment: IM FIX ADDED - Band(s) present. See Identificat ion in report. Peak(s) too small to quantitate. Ordering Provider: XENIA SALGADO Report Released Date/Time: Jun 05, 2023 01:14 PM Reporting Lab: [place] [phone] Performing Lab: [facility] [address] [place] [facility] ELP/IMMF IX,SERUM PANEL PROTEIN [MASS/VOLU ME] IN SERUM OR PLASMA 6.2 6.0 - 8.3 07/04 Specimen Type: SERUM Comment: IM FIX ADDED - Band(s) present. See Identificat ion in report. Peak(s) too small to quantitate. Ordering Provider: XENIA SALGADO Report Released Date/Time: Jun 05, 2023 01:14 PM Reporting Lab: [facility] [address] Performing Lab: [facility] [address] [facility] ELP/IMMF IX,SERUM PANEL IMMUNOELEC TROPHORESI S FOR SERUM OR PLASMA MONOCLON AL 07/04 Specimen Type: SERUM Comment: IM FIX ADDED - Band(s) present. See Identificat ion in report. Peak(s) too small to quantitate. Ordering Provider: XENIA SALGADO Report Released Date/Time: Jun 05, 2023 01:14 PM Reporting Lab: [facility] [address] Performing Lab: [facility] [address] [facility]/[place] MBDA LC FREE,RAT IO KAPPA LIGHT CHAINS.RICHARD E [MASS/VOLU ME] IN SERUM 25.9 3.3 - 19.4 07/04 H Specimen Type: SERUM Comment: Free kappa/lambd a ratio in serum of normal individuals is 0.26-1.65. Excess production of free kappa or lambda chains can alter the ratio. Monoclonal free light chains are found in the serum of patients with multiple myeloma, Waldenstrom 's macroglobul inemia, mu-heavy chain disease, primary amyloidosis , light chain deposition disease, monoclonal gammopathy of undetermine d significanc e, and lymphoproli ferative disorders. Measurement of free light chain concen- tration in serum is useful for diagnosis, prognosis, monitoring disease activity and following response to therapy of these disorders. Test Performed by [facility], [address] [place] [address] Robert Swift M.D., Ph.D., Director of Laboratorie s , CLIA [id number] Ordering Provider: XENIA SALGADO Report Released Date/Time: Jun 05, 2023 01:14 PM Reporting Lab: [facility] [address] Performing Lab: [place] [id number] [facility] KAPPA/LA MBDA LC FREE,RAT IO LAMBDA LIGHT CHAINS.RICHARD E [MASS/VOLU ME] IN SERUM OR PLASMA 56.3 5.7 - 26.3 07/04 H Specimen Type: SERUM Comment: Free kappa/lambd a ratio in serum of normal individuals is 0.26-1.65. Excess production of free kappa or lambda chains can alter the ratio. Monoclonal free light chains are found in the serum of patients with multiple myeloma, Waldenstrom 's macroglobul inemia, mu-heavy chain disease, primary amyloidosis , light chain deposition disease, monoclonal gammopathy of undetermine d significanc e, and lymphoproli ferative disorders. Measurement of free light chain concen- tration in serum is useful for diagnosis, prognosis, monitoring disease activity and following response to therapy of these disorders. Test Performed by [facility], [facility], [address] [place] [address] Robert Swift M.D., Ph.D., Director of Laboratorie s , CLIA [id number] Ordering Provider: XENIA SALGADO Report Released Date/Time: Jun 05, 2023 01:14 PM Reporting Lab: [facility] [address] Performing Lab: [address] [facility] KAPPA/LA MBDA LC FREE,RAT IO KAPPA LIGHT CHAINS.RICHARD E/LAMBDA LIGHT CHAINS.RICHARD E [MASS RATIO] IN SERUM 0.46 0.26 - 1.65 07/04 Specimen Type: SERUM Comment: Free kappa/lambd a ratio in serum of normal individuals is 0.26-1.65. Excess production of free kappa or lambda chains can alter the ratio. Monoclonal free light chains are found in the serum of patients with multiple myeloma, Waldenstrom 's macroglobul inemia, mu-heavy chain disease, primary amyloidosis , light chain deposition disease, monoclonal gammopathy of undetermine d significanc e, and lymphoproli ferative disorders. Measurement of free light chain concen- tration in serum is useful for diagnosis, prognosis, monitoring disease activity and following response to therapy of these disorders. Test Performed by [facility], [facility], [address] [place] [address] Robert Swift M.D., Ph.D., Director of Laboratorie s , CLIA [id number] Ordering Provider: XENIA SALGADO Report Released Date/Time: Jun 05, 2023 01:14 PM Reporting Lab: [facility] [address] Performing Lab: [address] [place] [facility] PHOSPHOR US PHOSPHATE [MASS/VOLU ME] IN SERUM OR PLASMA 2.5 2.3 - 4.7 07/04 Specimen Type: PLASMA No comment entered. Ordering Provider: XENIA SALGADO Report Released Date/Time: Jun 05, 2023 01:14 PM Reporting Lab: [facility] [address] Performing Lab: [facility] [address] [place] [facility] TSH W/REFLEX TO FREE T4 THYROTROPI N [UNITS/VOL UME] IN SERUM OR PLASMA 1.64 0.35 - 4.94 07/04 Specimen Type: PLASMA Comment: Automated Differentia l Performed Ordering Provider: XENIA SALGADO Report Released Date/Time: Jun 05, 2023 01:14 PM Reporting Lab: [facility] [address] Performing Lab: [facility] [address] [place] [facility] URIC ACID URATE [MASS/VOLU ME] IN SERUM OR PLASMA 7.3 3.5 - 7.2 07/04 H Specimen Type: PLASMA No comment entered. Ordering Provider: XENIA SALGADO Report Released Date/Time: Jun 05, 2023 01:14 PM Reporting Lab: [facility] [address] Performing Lab: [facility] [address] [place] [facility] BNP NATRIURETI C PEPTIDE B [MASS/VOLU ME] IN SERUM OR PLASMA 81 <99 - 99 06/05 Specimen Type: PLASMA No comment entered. Ordering Provider: ROXANNE SHELBY Report Released Date/Time: Apr 12, 2023 04:50 PM Reporting Lab: [facility] [address] Performing Lab: [place] [address] [place] [facility] ELP/IMMF IX,SERUM PANEL PROTEIN [MASS/VOLU ME] IN SERUM OR PLASMA 6.2 6.0 - 8.3 06/05 Specimen Type: SERUM Comment: IM FIX ADDED - Band(s) present. See Identificat ion in report. Ordering Provider: XENIA SALGADO Report Released Date/Time: May 07, 2023 03:13 PM Reporting Lab: [facility] [address] Performing Lab: [place] [address] [facility] ELP/IMMF IX,SERUM PANEL IMMUNOFIXA TION FOR SERUM OR PLASMA IgA lambda 06/05 Specimen Type: SERUM Comment: IM FIX ADDED - Band(s) present. See Identificat ion in report. Ordering Provider: XENIA SALGADO Report Released Date/Time: May 07, 2023 03:13 PM Reporting Lab: [facility] [address] Performing Lab: [facility] [address] [facility] ELP/IMMF IX,SERUM PANEL ALBUMIN [MASS/VOLU ME] IN SERUM OR PLASMA BY ELECTROPHO RESIS 3.89 3.66 - 4.78 06/05 Specimen Type: SERUM Comment: IM FIX ADDED - Band(s) present. See Identificat ion in report. Ordering Provider: XENIA SALGADO Report Released Date/Time: May 07, 2023 03:13 PM Reporting Lab: [facility] [address] Performing Lab: [facility] [address] [facility] ELP/IMMF IX,SERUM PANEL ALPHA 1 GLOBULIN [MASS/VOLU ME] IN SERUM OR PLASMA BY ELECTROPHO RESIS 0.47 0.14 - 0.38 06/05 H Specimen Type: SERUM Comment: IM FIX ADDED - Band(s) present. See Identificat ion in report. Ordering Provider: XENIA SALGADO Report Released Date/Time: May 07, 2023 03:13 PM Reporting Lab: [facility] [address] Performing Lab: [place] [address] [place] [facility] ELP/IMMF IX,SERUM PANEL ALPHA 2 GLOBULIN [MASS/VOLU ME] IN SERUM OR PLASMA BY ELECTROPHO RESIS 0.89 0.50 - 0.90 06/05 Specimen Type: SERUM Comment: IM FIX ADDED - Band(s) present. See Identificat ion in report. Ordering Provider: XENIA SALGADO Report Released Date/Time: May 07, 2023 03:13 PM Reporting Lab: [address] Performing Lab: [place] [address] [facility] ELP/IMMF IX,SERUM PANEL BETA 1 GLOBULIN [MASS/VOLU ME] IN SERUM OR PLASMA BY ELECTROPHO RESIS 0.38 0.33 - 0.55 06/05 Specimen Type: SERUM Comment: IM FIX ADDED - Band(s) present. See Identificat ion in report. Ordering Provider: XENIA SALGADO Report Released Date/Time: May 07, 2023 03:13 PM Reporting Lab: [address] Performing Lab: [place] [address] [place] [facility] ELP/IMMF IX,SERUM PANEL BETA 2 GLOBULIN [MASS/VOLU ME] IN SERUM OR PLASMA BY ELECTROPHO RESIS 0.29 0.20 - 0.52 06/05 Specimen Type: SERUM Comment: IM FIX ADDED - Band(s) present. See Identificat ion in report. Ordering Provider: XENIA SALGADO Report Released Date/Time: May 07, 2023 03:13 PM Reporting Lab: [place] [address] Performing Lab: [address] [place] [facility] ELP/IMMF IX,SERUM PANEL GAMMA GLOBULIN [MASS/VOLU ME] IN SERUM OR PLASMA BY ELECTROPHO RESIS 0.28 0.58 - 1.72 06/05 L Specimen Type: SERUM Comment: IM FIX ADDED - Band(s) present. See Identificat ion in report. Ordering Provider: XENIA SALGADO Report Released Date/Time: May 07, 2023 03:13 PM Reporting Lab: [facility] [id number] Performing Lab: [facility] [address] [facility] ELP/IMMF IX,SERUM PANEL PROTEIN [MASS/VOLU ME] IN SERUM OR PLASMA 6.2 6.0 - 8.3 06/05 Specimen Type: SERUM Comment: IM FIX ADDED - Band(s) present. See Identificat ion in report. Ordering Provider: XENIA SALGADO Report Released Date/Time: May 07, 2023 03:13 PM Reporting Lab: [facility] [id number] Performing Lab: [facility] [address] [facility] ELP/IMMF IX,SERUM PANEL IMMUNOELEC TROPHORESI S FOR SERUM OR PLASMA MONOCLON AL 06/05 Specimen Type: SERUM Comment: IM FIX ADDED - Band(s) present. See Identificat ion in report. Ordering Provider: XENIA SALGADO Report Released Date/Time: May 07, 2023 03:13 PM Reporting Lab: [facility] [id number] Performing Lab: [facility] [address] [facility] KAPPA/LA MBDA LC FREE,RAT IO KAPPA LIGHT CHAINS.RICHARD E [MASS/VOLU ME] IN SERUM 18.5 3.3 - 19.4 06/05 Specimen Type: SERUM Comment: Free kappa/lambd a ratio in serum of normal individuals is 0.26-1.65. Excess production of free kappa or lambda chains can alter the ratio. Monoclonal free light chains are found in the serum of patients with multiple myeloma, Waldenstrom 's macroglobul inemia, mu-heavy chain disease, primary amyloidosis , light chain deposition disease, monoclonal gammopathy of undetermine d significanc e, and lymphoproli ferative disorders. Measurement of free light chain concen- tration in serum is useful for diagnosis, prognosis, monitoring disease activity and following response to therapy of these disorders. Test Performed by [facility], [facility], [address] [place] [address] Robert Swift M.D., Ph.D., Director of Laboratorie s , CLIA [id number] Ordering Provider: XENIA SALGADO Report Released Date/Time: May 07, 2023 03:13 PM Reporting Lab: [facility] [id number] Performing Lab: [address] [facility] [place] KAPPA/LA MBDA LC FREE,RAT IO LAMBDA LIGHT CHAINS.RICHARD E [MASS/VOLU ME] IN SERUM OR PLASMA 48.4 5.7 - 26.3 06/05 H Specimen Type: SERUM Comment: Free kappa/lambd a ratio in serum of normal individuals is 0.26-1.65. Excess production of free kappa or lambda chains can alter the ratio. Monoclonal free light chains are found in the serum of patients with multiple myeloma, Waldenstrom 's macroglobul inemia, mu-heavy chain disease, primary amyloidosis , light chain deposition disease, monoclonal gammopathy of undetermine d significanc e, and lymphoproli ferative disorders. Measurement of free light chain concen- tration in serum is useful for diagnosis, prognosis, monitoring disease activity and following response to therapy of these disorders. Test Performed by [facility], [facility], [address] [place] [address] Robert Swift M.D., Ph.D., Director of Laboratorie s , CLIA [id number] Ordering Provider: XENIA SALGADO Report Released Date/Time: May 07, 2023 03:13 PM Reporting Lab: [facility] [id number] Performing Lab: [address] [facility] KAPPA/LA MBDA LC FREE,RAT IO KAPPA LIGHT CHAINS.RICHARD E/LAMBDA LIGHT CHAINS.RICHARD E [MASS RATIO] IN SERUM 0.38 0.26 - 1.65 06/05 Specimen Type: SERUM Comment: Free kappa/lambd a ratio in serum of normal individuals is 0.26-1.65. Excess production of free kappa or lambda chains can alter the ratio. Monoclonal free light chains are found in the serum of patients with multiple myeloma, Waldenstrom 's macroglobul inemia, mu-heavy chain disease, primary amyloidosis , light chain deposition disease, monoclonal gammopathy of undetermine d significanc e, and lymphoproli ferative disorders. Measurement of free light chain concen- tration in serum is useful for diagnosis, prognosis, monitoring disease activity and following response to therapy of these disorders. Test Performed by [facility], [facility], [address] [place] [address] Robert Swift M.D., Ph.D., Director of Laboratorie s , CLIA [id number] Ordering Provider: XENIA SALGADO Report Released Date/Time: May 07, 2023 03:13 PM Reporting Lab: [facility] [id number] Performing Lab: [address] [facility] [place] Vital Signs Combined list of inpatient and outpatient Vital Signs from Department of Defense and Veterans Affairs, ranging from 12 months to all on record, depending upon the facility. Vital Sign Value Date Comments Source SYSTOLIC BLOOD PRESSURE 100 07/04/2023 13:35:54 [facility] DIASTOLIC BLOOD PRESSURE 63 07/04/2023 13:35:54 [facility] PULSE OXIMETRY 93% 07/04/2023 13:35:[address] [facility] WEIGHT 208.4 07/04/2023 13:35:54 [facility] BMI 34kg/m2 07/04/2023 13:35:54 [facility] PAIN 0 07/04/2023 13:35:54 [facility] TEMPERATURE 96.8 07/04/2023 13:35:54 [facility] PULSE 100 07/04/2023 13:35:54 [facility] RESPIRATION 18 07/04/2023 13:35:54 [facility] SYSTOLIC BLOOD PRESSURE 118 06/05/2023 12:50:44 [facility] ([facility] DIASTOLIC BLOOD PRESSURE 71 06/05/2023 12:50:44 [facility]) PULSE OXIMETRY 94% 06/05/2023 12:50:44 [place] ([facility]) WEIGHT 211.5 06/05/2023 12:50:44 [facility] ([facility]) BMI 34kg/m2 06/05/2023 12:50:44 [facility] ([facility]) PAIN 0 06/05/2023 12:50:44 [facility] ([facility]) TEMPERATURE 98.9 06/05/2023 12:50:44 [facility] ([facility]) PULSE 97 06/05/2023 12:50:44 [facility] ([facility]) RESPIRATION 16 06/05/2023 12:50:44 [facility] ([facility]) SYSTOLIC BLOOD PRESSURE 135 05/07/2023 14:10:43 [facility] DIASTOLIC BLOOD PRESSURE 72 05/07/2023 14:10:43 [facility] PULSE OXIMETRY 98% 05/07/2023 14:10:[address] [facility] WEIGHT 215.1 05/07/2023 14:10:43 [facility] BMI 35kg/m2 05/07/2023 14:10:43 [facility] PAIN 0 05/07/2023 14:10:43 [facility] HEIGHT 66 05/07/2023 14:10:43 [facility] TEMPERATURE 98.1 05/07/2023 14:10:43 [facility] PULSE 101 05/07/2023 14:10:43 [facility] RESPIRATION 20 05/07/2023 14:10:43 [facility] SYSTOLIC BLOOD PRESSURE 113 04/10/2023 14:44:48 [facility] ([facility]) DIASTOLIC BLOOD PRESSURE 71 04/10/2023 14:44:48 [facility] ([facility]) PULSE OXIMETRY 92% 04/10/2023 14:44:48 [place] ([facility]) WEIGHT 212.4 04/10/2023 14:44:48 [facility] ([facility]) BMI 34kg/m2 04/10/2023 14:44:48 [facility] ([facility]) PAIN 1 04/10/2023 14:44:48 [facility] ([facility]) HEIGHT 66 04/10/2023 14:44:48 [facility] ([facility]) TEMPERATURE 98.9 04/10/2023 14:44:48 [facility] ([facility]) PULSE 105 04/10/2023 14:44:48 [facility] ([facility]) RESPIRATION 18 04/10/2023 14:44:48 [facility] ([facility]) WEIGHT 219 03/09/2023 15:46:29 [facility] BMI 35kg/m2 03/09/2023 15:46:29 [facility] Encounters Combined list of: 1) Encounters from 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 2) Encounters from the Department of [facility] facilities going back up to 280 months. Location Location Details Encounter Type Encounter Number Reason For Visit Attending Provider ADM Date DC Date Status Disposition Source [facility] Outpatient Encounter [id number] 01/23 [facility] Outpatient Encounter [id number] 02/01 [facility] OFFICE O/P EST HI 40-54 MIN [id number] Diagnos is: ICD-10- CM C90.00 Multipl e myeloma not having achieve d remissi on
FRID,LISA Carlos 02/01 [facility] Outpatient Encounter [id number] LISA SALGADO 02/10 [facility] Outpatient Encounter [id number] 02/22 [facility] HC PRO PHONE CALL 21-30 MIN [id number] Diagnos is: ICD-10- CM E11.9 Type 2 diabete s mellitu s without complic ations< br/> CECILIO SMITH 03/06 [facility] Outpatient Encounter [id number] Diagnos is: ICD-10- CM C90.00 Multipl e myeloma not having achieve d remissi on
FRID,LISA Carlos 03/07 [facility] HC PRO PHONE CALL 5-10 MIN [id number] Diagnos is: ICD-10- CM C90.00 Multipl e myeloma not having achieve d remissi on
GABRIELA LOPEZ M 03/09 [facility] Outpatient Encounter [id number] FRID,LISA JOSE ROBERTO L 03/09 [facility] ([facility] OFFICE O/P EST MOD 30-39 MIN [id number] Diagnos is: ICD-10- CM Z00.00 Encntr for general adult medical exam w/o abnorma l finding s
KAIT SHELBY 03/30 [facility] Outpatient Encounter [id number] Diagnos is: ICD-10- CM C90.00 Multipl e myeloma not having achieve d remissi on
FRID,LISA JOSE ROBERTO L 04/07 [facility] Outpatient Encounter [id number] FRID,LISA JOSE ROBERTO L 04/07 [facility] PRO PHONE CALL 5-10 MIN [id number] Diagnos is: ICD-10- CM C90.00 Multipl e myeloma not having achieve d remissi on
GABRIELA LOPEZ 04/28 [facility] Outpatient Encounter [id number] Diagnos is: ICD-10- CM C90.00 Multipl e myeloma not having achieve d remissi on
FRID,LISA JOSE ROBERTO L 05/09 [facility] Outpatient Encounter [id number] FRID,LISA TIE L 05/09 [facility] Outpatient Encounter [id number] 05/11 [facility] Outpatient Encounter [id number] Diagnos is: ICD-10- CM C90.00 Multipl e myeloma not having achieve d remissi on
FRID,LISA CID Breanna 05/30 [facility] Outpatient Encounter [id number] 06/05 [facility] QNHP OL DIG ASSMT&MGMT 5-10 [id number] Diagnos is: ICD-10- CM E11.9 Type 2 diabete s mellitu s without complic ations< br/> CECILIO SMITH A 06/05 [facility] Outpatient Encounter [id number] FRID,LISA CID Breanna 06/05 [facility] Outpatient Encounter [id number] Diagnos is: ICD-10- CM C90.00 Multipl e myeloma not having achieve d remissi on
FRID,LISA CID Breanna 06/27 [facility] Outpatient Encounter [id number] FRID,LISA CID Breanna 06/28 [facility] Outpatient Encounter [id number] 06/29 [facility] ADM SARSCV2 BVL 30MCG/.3ML B [id number] Diagnos is: ICD-10- CM Z23 Encount er for immuniz ation<b r/> AMINATA ARIZA 07/19 [place] ([facility] OFFICE O/P EST HI 40-54 MIN [id number] Diagnos is: ICD-10- CM C90.00 Multipl e myeloma not having achieve d remissi on
FRID,LISA JOSE ROBERTO Carlos 07/26 [facility] Outpatient Encounter [id number] FRID,LISA CID L 07/26 [place] [facility] [place] [facility] Outpatient Encounter [id number] Diagnos is: ICD-10- CM C90.00 Multipl e myeloma not having achieve d remissi on
FRID,LISA CID L 08/25 [place] [facility] [place] [facility] Outpatient Encounter [id number] FRID,LISA CID L 08/25 [place] [facility] Outpatient Encounter [id number] Diagnos is: ICD-10- CM C90.00 Multipl e myeloma not having achieve d remissi on
FRID,LISA CID L 09/22 [facility] Outpatient Encounter [id number] FRID,LISA CID L 09/26 [facility] Outpatient Encounter [id number] 09/27 [facility] Outpatient Encounter [id number] Diagnos is: ICD-10- CM C90.00 Multipl e myeloma not having achieve d remissi on
FRID,LISA CID Breanna 10/20 [facility] Outpatient Encounter [id number] FRID,LISA CID L 10/24 [facility] Outpatient Encounter [id number] Diagnos is: ICD-10- CM C90.00 Multipl e myeloma not having achieve d remissi on
FRID,LISA CID Breanna 11/14 [facility] Outpatient Encounter [id number] ANNYETELVINA Carlos 11/21 [place] [facility] Outpatient Encounter [id number] Diagnos is: ICD-10- CM C90.00 Multipl e myeloma not having achieve d remissi on
FRID,LISA Carlos 12/12 [place] [facility] [place] Outpatient Encounter [id number] FRID,LISA Carlos 12/19 [place] [facility] [place] OFFICE O/P EST HI 40-54 MIN [id number] Diagnos is: ICD-10- CM C90.00 Multipl e myeloma not having achieve d remissi on
LUSTECK,STEVEN KRISTIN M 01/10 [place] [facility] [place] Outpatient Encounter [id number] 01/11 [place] [facility] [place] Outpatient Encounter [id number] FRID,LISA JOSE ROBERTO Carlos 01/12 [place] [facility] [place] [facility] Outpatient Encounter [id number] Diagnos is: ICD-10- CM C90.00 Multipl e myeloma not having achieve d remissi on
FRID,LISA Carlos 02/09 [place] [facility] [place] [facility] Outpatient Encounter [id number] FRID,LISA Carlos 02/13 [place] [facility] [place] [facility] Outpatient Encounter [id number] Diagnos is: ICD-10- CM C90.00 Multipl e myeloma not having achieve d remissi on
FRID,LISA Carlos 03/09 [place] [facility] [place] [facility] Outpatient Encounter [id number] FRID,LISA Carlos 03/09 [place] [facility] [place] [facility] Outpatient Encounter [id number] 03/19 [place] [facility] [place] Outpatient Encounter [id number] 04/10 [place] [facility] ([facility] OFFICE O/P EST HI 40-54 MIN [id number] Diagnos is: ICD-10- CM J44.1 Chronic obstruc tive pulmona ry disease w (acute) exacerb ation<b r/> KAIT SHELBY 04/10 [place] ([facility] Outpatient Encounter [id number] Diagnos is: ICD-10- CM C90.00 Multipl e myeloma not having achieve d remissi on
FRID,LISA JOSE ROBERTO Carlos 04/13 [facility] Outpatient Encounter [id number] FRID,LISA JOSE ROBERTO L 04/17 [facility] OFFICE O/P EST HI 40-54 MIN [id number] Diagnos is: ICD-10- CM C90.00 Multipl e myeloma not having achieve d remissi on
FRID,LISA JOSE ROBERTO Carlos 05/07 [facility] Outpatient Encounter [id number] 05/07 [facility] Outpatient Encounter [id number] FRID,LISA CID L 05/10 [facility] Outpatient Encounter [id number] 05/25 [facility] FEE [id number] Diagnos is: ICD-10- CM C90.00 Multipl e myeloma not having achieve d remissi on
FRID,LISA JOSE ROBERTO Carlos 06/05 [place] [facility] OFFICE O/P EST MOD 30-39 MIN [id number] Diagnos is: ICD-10- CM C90.00 Multipl e myeloma not having achieve d remissi on
FRID,LISA JOSE ROBERTO Carlos 06/05 [facility] Outpatient Encounter [id number] NAOMILISA JOSE ROBERTO L 06/07 [facility] ([facility]) IMMUNIZATI ON ADMIN [id number] Diagnos is: ICD-10- CM Z23 Encount er for immuniz ation<b r/> RODGER KILPATRICK 06/11 [place] [facility] Outpatient Encounter [id number] 06/21 [facility] Outpatient Encounter [id number] HORACE DOBSON 06/30 [facility] OFFICE O/P EST HI 40-54 MIN [id number] Diagnos is: ICD-10- CM C90.00 Multipl e myeloma not having achieve d remissi on
NAOMILISA JOSE ROBERTO Carlos 07/04 [facility] Outpatient Encounter [id number] NAOMILISA JOSE ROBERTO L 07/04 [facility] Outpatient Encounter [id number] Diagnos is: ICD-10- CM N18.9 Chronic kidney disease , unspeci fied
JYOTI GREER 07/04 [facility] Social History Combined list of available smoking, tobacco, and other social history from Department of Defense and [facility] Affairs facilities. Social History Type Response Date Comment Sourc e Tobacco smoking status MEIS VA-TOBACCO FORMER USER 04/10/2023 [facility] ([facility] History of tobacco use VA-TOBACCO QUIT 5 TO < 15 YRS 04/10/2023 [facility] ([facility]) History of tobacco use VA-TOBACCO FORMER USER 03/30/2022 [facility] ([facility]) History of tobacco use VA-TOBACCO FORMER USER 03/30/2021 [facility] ([facility]) History of tobacco use VA-TOBACCO FORMER USER 03/16/2020 [facility] ([facility]) History of tobacco use NE-TOBACCO QUIT 5 TO < 15 YRS 08/22/2018 [facility] ([facility]) History of tobacco use FORMER TOBACCO US ER 7Y OR GREATER 01/24/2018 [facility] ([facility]) History of tobacco use FORMER TOBACCO US E >1Y <7Y 03/15/2017 [facility] ([facility]) History of tobacco use FORMER TOBACCO US E >1Y <7Y 11/16/2015 [facility] ([facility]) History of tobacco use FORMER TOBACCO US E >1Y <7Y 02/12/2015 [facility] ([facility]) History of tobacco use FORMER TOBACCO US E >1Y <7Y 02/12/2014 [facility]) History of tobacco use FORMER TOBACCO US E >1Y <7Y 01/02/2013 [facility] ([facility]) History of tobacco use FORMER TOBACCO US E >1Y <7Y 03/27/2011 [facility] ([facility]) History of tobacco use FORMER TOBACCO USE <1Y 04/14/2010 [facility] ([facility]) History of tobacco use FORMER TOBACCO USE <1Y 06/15/2009 [facility]) History of tobacco use FORMER TOBACCO USE <1Y 05/28/2008 [facility] ([facility]) Plan of Care List of future care activities from Department of Veterans Affairs facilities. Additional future care activities may be listed in the Assessment and Plan section. Date/Time Care Activity Care Activity Detail Facili ty 08/08/2023 AMBULATORY - NONE AMBULATORY - NONE [facility]
--- OUTSIDE RECORDS SUMMARY | 2023-07-20 11:52 | XMS_ITS | Clinical Summary ---
Author Name Unknown Organization [facility] Address [place], [place] [address] Care Team Providers Care Manager Database Administration Name Role Phone [place] Primary Care Provider [phone] Allergies No known active allergies Medications Medication Sig Dispensed Refills Start Date End Date Status Ferrous Gluconate 325 mg (36 mg iron) tablet Take 325 mg by mouth 3 times daily. 0 Active lisinopril-hydrochloro thiazide 20-12.5 mg tablet (PRINIZIDE) Take 1 tablet by mouth once daily. 0 Active Mometasone (ASMANEX TWISTHALER) 220 mcg (120 doses) inhaler Inhale by mouth once daily. 0 Active metFORMIN (GLUCOPHAGE) 1,000 mg tablet Take 1,000 mg by mouth 2 times daily with meals. 0 Active OMEGA-3S/DHA/EPA/FISH OIL (OMEGA 3 ORAL) Take 1 capsule by mouth 2 times daily. 0 Active loratadine (CLARITIN) 10 mg tablet Take 10 mg by mouth once daily. 0 Active NAPROXEN ORAL Take by mouth. 0 Active ALBUTEROL INHL Inhale by mouth. 0 Acti ve aspirin (ECOTRIN) 81 mg enteric coated tablet Take 81 mg by mouth once daily with a meal. 0 Active Immunizations Name Administration Dates Next Due Tdap 05/08/2021 Social History Tobacco Use Types Packs/Day Years Used Date Smoking Tobacco: Former Cigarettes Smokeless Tobacco: Never Alcohol Use Standard Drinks/Week Comments Not Asked 0 (1 standard drink = 0.6 oz pur e alcohol) Sex and Gender Information Value Date Recorded Sex Assigned at Not on file Gender Identity Not on file Sexual Orientation Not on file Obstetrics History Last Filed Vital Signs Vital Sign Reading Time Taken Comments Blood Pressure 186/94 05/08/2021 1:07 PM CDT Pulse 115 05/08/2021 1:07 PM CDT Temperature 37.1 ??C (98.7 ??F) 05/08/2021 1:07 PM CD T Respiratory Rate 22 05/08/2021 1:07 PM CDT Oxygen Saturation 95% 05/08/2021 1:07 PM CDT Inhaled Oxygen Concentration - - Weight 99.8 kg (220 lb) 05/08/2021 1:07 PM CDT Height 170.2 cm (5' 7) 02/14/2020 12:02 PM CDT Body Mass Index 34.46 02/14/2020 12:02 PM CDT Plan of Treatment Health Maintenance Due Date Last Done Comments COVID-19 vaccine series (#1) 02/27/1946 Depression screening for age 12+ 1958 BMI (ht and wt on same day) for age 18+ 1964 Hepatitis C screening for age 18-79 1964 Zoster (shingles) series for age 50+ (1 of 2) 08/30/18 97 Pneumococcal series for age 65+ (1 of 1 - PCV) 012 Influenza for age 65+ 03/09/2023 Tetanus booster 05/08/2031 05/08/2021 Tdap Completed 05/08/2021 Insurance Payer Benefit Plan / Group Subscriber ID Effective Dates Phone Address Type MEDICARE PART B - HB USE ONLY MEDICARE PART B HB ONLY [id number] 2011-Presen t ATTN: CLAIMS [address] [place] [address] MEDICARE PART A - HB USE ONLY MEDICARE PART A HB ONLY [id number] 2011-Presen t ATTN: CLAIMS [address] [place] [address] MEDICARE PART B - HB USE ONLY MEDICARE PART B HB ONLY [id number] 2011-Presen t ATTN: CLAIMS [address] [place] [address] [facility] MR JEFFERSONC MR [id number] 2020-Presen t [address] [address] [place] [address] Advance Directives Latest Code Status on File Code Status Date Activated Date Inactivated Comments Full Code 01/28/2015 9:26 AM 01/28/2015 3:59 PM Care Teams Manager Database Administration Relationship Specialty Start Date End Date [place], [place] [address] [employer] [place] [phone] PCP - General 01/15/20
[2023-07-20 16:11] LABS: SARS PCR* Negative SARS-CoV-2 (Negative)
== END 2023-07-20 11:39 | disposition home or self-care (01) ==
LOC: KYNREF 11:38
PROVIDERS: PCP Nurse Practitioner Family; Visit Provider Nurse Practitioner Family
DX: R05.8 Other specified cough (principal)
CPT/HCPCS: 87635

== ENCOUNTER 2023-08-11 06:52 | Emergency (ER) | payer OTHER, SELFPAY ==
--- OUTSIDE RECORDS SUMMARY | 2023-08-11 06:55 | XMS_ITS | Continuity of Care Document ---
Author Name [facility] Organization [facility] Care Team Providers Care Customer Contact Specialist Name Role Phone [facility] Unavailable Unavailable Problems Combined list of problems from Department of Defense and Veterans Affairs facilities. It does not include entries that were removed or entered in error. Problem Status Onset Date Problem Type Date of Resolution Comments Source Anemia (SCT 425038059) Active Condition [facility] ([facility]) Cataract Active Condition [facility] ([facility]) Chronic kidney disease stage 3 Active Condition [facility] (OC) COPD - Chronic Obstructive Pulmonary Disease (SCT 88661814) Active Condition [facility] ([facility]) Diabetes Mellitus Type 2 (SCT 45848312) Active Condition [facility] ([facility]) Hyperlipidemia ([facility] 82359125) Active Condition [facility] (OC) Low back pain Active Condition Aug Entered By: CHANDLER CARVER Comment: CT Chest (06/03/2018) showed T12 myeloma lesion and bilateral ribs [facility] (OC) Myeloma Active Condition Aug 22 Entered By: CHANDLER CARVER Comment: Plasma Cell Myeloma (Dx 03/2018) [facility] Seasonal allergy Active Condition [facility] ([facility]) Diagnosis: ICD-10-CM N18.9 Chronic kidney disease, unspecified Active Diagnosis [facility] Diagnosis: ICD-10-CM C90.00 Multiple myeloma not having achieved remission Active Diagnosis [facility] Diagnosis: ICD-10-CM Z23 Encounter for immunization Active Diagnosis [facility] ([facility]) Diagnosis: ICD-10-CM J44.1 Chronic obstructive pulmonary disease w (acute) exacerbation Active Diagnosis [facility] ([facility]) Diagnosis: ICD-10-CM E11.9 Type 2 diabetes mellitus without complications Active Diagnosis [facility] Diagnosis: ICD-10-CM Z00.00 Encntr for general [...] - SHAKE WELL INHALA TION ACTIVE 11/15/2023 [id number] 3 FRID,CHRI STIE L 2022 [place] [facility] ALBUTEROL 90MCG/ACTUA T (CFC-F) INHL,ORAL,8 .5GM DOSE COUNTER INHALE 2 PUFFS BY INHALATI ON EVERY 4-6 HOURS NEEDED FOR IMMEDIAT E RELIEF OF SHORTNES S OF BREATH - SHAKE WELL INHALA TION DISCONT INUED 09/15/2022 [id number] 2 CHEY SHELBY K 2021 [facility]) ALBUTEROL/I PRATROPIUM SOLN,INHL INHALE 3 ML ALBUTERO L 2.5% SOLUTION IN NEBULIZE R BY INHALATI ON TWICE A DAY NEEDED INHALA TION ACTIVE CHEY SEHLBY K 2021 [facility]) ALLOPURINOL 100MG TAB TAKE ONE-HALF TABLET BY MOUTH EVERY DAY ELEVATED URIC ACID ORALLY DISCONT INUED 11/15/2023 [id number] 3 [facility] ALLOPURIN[facility] 100MG TAB TAKE 50MG BY MOUTH EVERY DAY ELEVATED URIC ACID ORALLY DISCONT INUED (EDIT) 11/15/2023 [id number] 3 [facility] ASCORBIC ACID TAB TAKE EVERY DAY ACTIVE MERI MORENO 2017 [facility] ASPIRIN 81MG TAB,EC TAKE ONE TABLET BY MOUTH EVERY DAY ORALLY ACTIVE MARK YORK 2007 [facility]) CHOLECALCIF PAPI 25MCG (1,000UNIT) TAB TAKE ONE TABLET BY MOUTH EVERY DAY ORALLY ACTIVE JENNIFER CARVER 2017 [facility] CYANOCOBALA MIN 1000MCG TAB TAKE ONE TABLET BY MOUTH EVERY DAY ORALLY ACTIVE 04/10/2024 [id number] 3 BROWN,CHEY NDA K 2022 [facility] CYANOCOBALA MIN 1000MCG TAB TAKE ONE TABLET BY MOUTH EVERY DAY ORALLY DISCONT INUED 04/08/2023 [id number] 3 FRID,CHRI STIE L 2021 [place] [facility] DEXAMETHASO NE 4MG TAB TAKE FIVE TABLETS BY MOUTH EVERY WEEK WITH FOOD OR MILK. THIS IS A COMPONEN T OF A CHEMOTHE RAPY REGIMEN. ORALLY ACTIVE 08/31/2023 [id number] 4 FRID,CHRI STIE L 2023 [place] [facility] DEXAMETHASO NE 4MG TAB TAKE FIVE TABLETS BY MOUTH EVERY WEEK WITH FOOD OR MILK. THIS IS A COMPONEN T OF A CHEMOTHE RAPY REGIMEN. ORALLY DISCONT INUED 08/03/2023 [id number] 3 FRID,CHRI STIE L 2022 [place] [facility] DEXAMETHASO NE 4MG TAB TAKE FIVE TABLETS BY MOUTH EVERY WEEK WITH FOOD OR MILK. THIS IS A COMPONEN T OF A CHEMOTHE RAPY REGIMEN. ORALLY DISCONT INUED 07/07/2023 [id number] 3 FRID,CHRI STIE L 2022 [place] [facility] DEXAMETHASO NE 4MG TAB TAKE FIVE TABLETS BY MOUTH ONCE A WEEK WITH FOOD OR MILK. THIS IS A COMPONEN T OF A CHEMOTHE RAPY REGIMEN. ORALLY DISCONT INUED 06/09/2023 [id number] 3 FRID,CHRI STIE L 2022 [place] [facility] DEXAMETHASO NE 4MG TAB TAKE FIVE TABLETS BY MOUTH ONCE A WEEK WITH FOOD OR MILK. THIS IS A COMPONEN T OF A CHEMOTHE RAPY REGIMEN. ORALLY DISCONT INUED 05/17/2023 [id number] 3 FRID,CHRI STIE L 2022 [place] [facility] DEXAMETHASO NE 4MG TAB TAKE FIVE TABLETS BY MOUTH EVERY WEEK WITH FOOD OR MILK. THIS IS A COMPONEN T OF A CHEMOTHE RAPY REGIMEN. ORALLY DISCONT INUED 03/15/2023 [id number] 3 FRID,CHRI STIE L 2022 [place] [facility] DEXAMETHASO NE 4MG TAB TAKE FIVE TABLETS BY MOUTH EVERY WEEK WITH FOOD OR MILK. THIS IS A COMPONEN T OF A CHEMOTHE RAPY REGIMEN. ORALLY DISCONT INUED 01/18/2023 [id number] 3 FRID,CHRI STIE L 2022 [place] [facility] DEXAMETHASO NE 4MG TAB TAKE FIVE TABLETS BY MOUTH EVERY WEEK WITH FOOD OR MILK. THIS IS A COMPONEN T OF A CHEMOTHE RAPY REGIMEN. ORALLY DISCONT INUED 12/21/2022 [id number] 3 BLISS,RAY HELLE L 2022 [place] [facility] DEXAMETHASO NE 4MG TAB TAKE FIVE TABLETS BY MOUTH EVERY WEEK WITH FOOD OR MILK. THIS IS A COMPONEN T OF A CHEMOTHE RAPY REGIMEN. ORALLY DISCONT INUED 11/23/2022 [id number] 3 FRID,CHRI STIE L 2022 [place] [facility] DEXAMETHASO NE 4MG TAB TAKE FIVE TABLETS MOUTH EVERY WEEK WITH FOOD OR MILK. THIS IS A COMPONEN T OF A CHEMOTHE RAPY REGIMEN. ORALLY DISCONT INUED 10/26/2022 [id number] 3 FRID,CHRI STIE L 2022 [place] [facility] DEXAMETHASO NE 4MG TAB TAKE FIVE TABLETS BY MOUTH EVERY WEEK WITH FOOD OR MILK. THIS IS A COMPONEN T OF A CHEMOTHE RAPY REGIMEN. ORALLY DISCONT INUED 08/25/2022 [id number] 3 FRID,CHRI STIE L 2022 [facility] [facility] DEXAMETHASO NE 4MG TAB TAKE FIVE TABLETS BY MOUTH EVERY WEEK WITH FOOD OR MILK. THIS IS A COMPONEN T OF A CHEMOTHE RAPY REGIMEN. ORALLY DISCONT INUED 07/28/2022 [id number] 2 FRID,CHRI STIE L 2021 [place] [facility] DEXAMETHASO NE 4MG TAB TAKE FIVE TABLETS BY MOUTH EVERY WEEK WITH FOOD OR MILK. THIS IS A COMPONEN T OF A CHEMOTHE RAPY REGIMEN. ORALLY DISCONT INUED 07/05/2022 [id number] 2 FRID,CHRI STIE L 2021 [place] [facility] DEXAMETHASO NE 4MG TAB TAKE FIVE TABLETS BY MOUTH EVERY WEEK WITH FOOD OR MILK. THIS IS A COMPONEN T OF A CHEMOTHE RAPY REGIMEN. ORALLY 04/08/2023 [id number] 3 FRID,CHRI STIE L 2022 [place] [facility] DEXAMETHASO NE 4MG TAB TAKE FIVE TABLETS BY MOUTH EVERY WEEK WITH FOOD OR MILK. THIS IS A COMPONEN T OF A CHEMOTHE RAPY REGIMEN. ORALLY 02/11/2023 [id number] 3 FRID,CHRI STIE L 2022 [place] [facility] DEXAMETHASO NE 4MG TAB TAKE FIVE TABLETS BY MOUTH EVERY WEEK WITH FOOD OR MILK. THIS IS A COMPONEN T OF A CHEMOTHE RAPY REGIMEN. ORALLY 09/24/2022 [id number] 3 FRID,CHRI STIE L 2022 [place] [facility] DOXYCYCLINE HYCLATE 50MG CAP TAKE 2 CAPSULES BY MOUTH TWICE A DAY ORALLY ACTIVE CHEY SHELBY K 2022 [facility] EMPAGLIFLOZ IN 25MG TAB TAKE ONE-HALF TABLET BY MOUTH EVERY MORNING FOR DIABETES AND KIDNEY ORALLY ACTIVE 03/19/2024 [id number] 3 [facility] 2022 [place] [facility] EMPAGLIFLOZ IN 25MG TAB TAKE ONE-HALF TABLET BY MOUTH EVERY MORNING FOR DIABETES AND KIDNEY ORALLY DISCONT INUED 03/07/2023 [id number] 3 [facility] FISH OIL 1000MG (500MG DHA/EPA) CAP,ORAL TAKE 1 CAPSULE BY MOUTH TWICE A DAY ORALLY ACTIVE MARK YORK 2007 [facility]) GLIPIZIDE 10MG TAB TAKE ONE TABLET BY MOUTH TWICE A DAY 30 MINUTES BEFORE MEAL FOR DIABETES ORALLY ACTIVE 12/22/2023 [id number] 4 CHEY SHELBY K 2022 [facility] GLIPIZIDE 10MG TAB TAKE ONE TABLET BY MOUTH TWICE A DAY 30 MINUTES BEFORE MEAL FOR DIABETES ORALLY DISCONT INUED 10/19/2022 [id number] 3 CHEY SHELBY NDA K 2021 [facility] LENALIDOMID E 10MG CAP,ORAL TAKE ONE CAPSULE BY MOUTH EVERY DAY FOR 21 DAYS THEN 7 DAYS OFF. TAKE WITH A GLASS OF WATER*DO CUMENTAT ION ONLY-KAVITA LED BY [facility] * ORALLY ACTIVE 08/31/2023 [id number] 4 FRID,[facility] SAE Carlos 20[facility] LENALIDOMID E 10MG CAP,ORAL TAKE ONE CAPSULE BY MOUTH EVERY DAY FOR 21 DAYS THEN 7 DAYS OFF. TAKE WITH A GLASS OF WATER*DO CUMENTAT ION ONLY-KAVITA LED BY [facility] * ORALLY DISCONT INUED 08/03/2023 [id number] 4 FRID,HEMA Carlos 2023 [facility] LENALIDOMID E 10MG CAP,ORAL TAKE ONE CAPSULE BY MOUTH EVERY DAY FOR 21 DAYS THEN 7 DAYS OFF. TAKE WITH A GLASS OF WATER*DO CUMENTAT ION ONLY-KAVITA LED BY [facility] * ORALLY DISCONT INUED 07/07/2023 [id number] 3 FRID,HEMA Carlos 2022 [facility] LENALIDOMID E 10MG CAP,ORAL TAKE ONE CAPSULE BY MOUTH EVERY DAY FOR 21 DAYS THEN 7 DAYS OFF. TAKE WITH A GLASS OF WATER. [facility] MAILS TO PATIENT ORALLY DISCONT INUED 06/09/2023 [id number] 3 [facility] LENALIDOMID E 10MG CAP,ORAL TAKE ONE CAPSULE BY MOUTH EVERY DAY FOR 21 DAYS AND THEN 7 DAYS OFF*TAKE WITH A GLASS OF WATER--D OCUMENTA TION ONLY--DANITZA ILED TO PATIENT BY [facility] ORALLY DISCONT INUED 05/17/2023 [id number] 3 FRID,HEMA Carlos 2022 [place] [facility] LENALIDOMID E 10MG CAP,ORAL TAKE ONE CAPSULE BY MOUTH EVERY DAY FOR 21 DAYS THEN 7 DAYS OFF. SWALLOW WHOLE WITH WATER*FO R DOCUMENT ATION ONLY-[facility] ORALLY DISCONT INUED 03/15/2023 [id number] 3 [facility] [place] [facility] LENALIDOMID E 10MG CAP,ORAL TAKE ONE CAPSULE BY MOUTH EVERY DAY FOR 21 DAYS AND THEN 7 DAYS OFF. SWALLOW WHOLE WITH WATER *FOR DOCUMENT ATION ONLY - [facility]ILL[facility] * ORALLY DISCONT INUED 01/18/2023 [id number] 3 FRID,HEMA Carlos 2022 [place] [facility] LENALIDOMID E 10MG CAP,ORAL TAKE ONE CAPSULE BY MOUTH EVERY DAY FOR 21 DAYS AND THEN 7 DAYS OFF. SWALLOW WHOLE WITH WATER *FOR DOCUMENT ATION ONLY - FILLED BY [facility] * ORALLY DISCONT INUED 12/21/2022 [id number] 3 [facility] [place] [facility] LENALIDOMID E 10MG CAP,ORAL TAKE ONE CAPSULE BY MOUTH EVERY DAY FOR 21 DAYS AND THEN 7 DAYS OFF. SWALLOW WHOLE WITH WATER*FO R DOCUMENT ATION ONLY-[facility] * ORALLY DISCONT INUED 11/23/2022 [id number] 3 FRID,HEMA Carlos 2022 [place] [facility] LENALIDOMID E 10MG CAP,ORAL TAKE ONE CAPSULE BY MOUTH EVERY DAY FOR 21 DAYS AND THEN 7 DAYS OFF. SWALLOW WHOLE WITH WATER *FOR DOCUMENT ATION ONLY - FILLED BY [facility] * ORALLY DISCONT INUED 10/26/2022 [id number] 3 FRID,HEMA Carlos 2022 [place] [facility] LENALIDOMID E 10MG CAP,ORAL TAKE ONE CAPSULE BY MOUTH EVERY DAY FOR 21 DAYS THEN 7 DAYS OFF *TAKE WITH A GLASS OF WATER--D OCUMENTA TION ONLY--DANITZA ILED TO PATIENT [facility] ORALLY DISCONT INUED 08/25/2022 [id number] 3 FRID,CHRBeth Carlos 2022 [place] [facility] LENALIDOMID E 10MG CAP,ORAL TAKE ONE CAPSULE BY MOUTH EVERY DAY FOR 21 DAYS THEN 7 DAYS OFF *TAKE WITH A GLASS OF WATER--D OCUMENTA TION ONLY--MA ILED TO PATIENT [facility] ORALLY DISCONT INUED 07/28/2022 [id number] 2 FRID,CHRI STIMarlyn Carlos 2021 [place] [facility] LENALIDOMID E 10MG CAP,ORAL TAKE ONE CAPSULE BY MOUTH EVERY DAY FOR 21 DAYS THEN 7 DAYS OFF *TAKE WITH A GLASS OF WATER--D OCUMENTA TION ONLY--MA ILED TO PATIENT [facility] ORALLY DISCONT INUED 07/05/2022 [id number] 2 FRID,HEMA Carlos 2021 [place] [facility] LENALIDOMID E 10MG CAP,ORAL TAKE ONE CAPSULE BY MOUTH EVERY DAY FOR 21 DAYS THEN 7 DAYS OFF-DOCU MENTATIO N ONLY-ANKITA LED [facility] ORALLY DISCONT INUED 06/08/2022 [id number] 2 FRID,HEMA Carlos 2021 [place] [facility] LENALIDOMID E 10MG CAP,ORAL TAKE ONE CAPSULE BY MOUTH EVERY DAY FOR 21 DAYS AND THEN 7 DAYS OFF. SWALLOW WHOLE WITH WATER *FOR DOCUMENT ATION ONLY - [facility]ILLED BY [facility] * ORALLY 04/08/2023 [id number] 3 FRID,CHRI SAE Carlos 2022 [place] [facility] LENALIDOMID E 10MG CAP,ORAL TAKE ONE CAPSULE BY MOUTH EVERY DAY FOR 21 DAYS AND THEN 7 DAYS OFF. SWALLOW WHOLE WITH WATER *FOR DOCUMENT ATION ONLY - [facility]ILLED [facility] * ORALLY 02/11/2023 [id number] 3 FRID,CHRI SAE Carlos 2022 [place] [facility] LENALIDOMID E 10MG CAP,ORAL TAKE ONE CAPSULE BY MOUTH EVERY DAY FOR 21 DAYS AND THEN 7 DAYS OFF. SWALLOW WHOLE WITH WATER *FOR DOCUMENT ATION ONLY - [facility]ILLED BY [facility] * ORALLY 09/24/2022 [id number] 3 FRID,CHRI STIE L 2022 [facility] LORATADINE 10MG TAB TAKE ONE TABLET BY MOUTH PRN ORALLY ACTIVE KWABENA ANGEL 2010 [facility] MAGNESIUM OXIDE 420MG TAB TAKE ONE TABLET BY MOUTH TWICE A DAY FOR LOW MAGNESIU M ORALLY ACTIVE 09/23/2023 [id number] 3 FRID,CHRI STIE L 2022 [facility] MAGNESIUM OXIDE 420MG TAB TAKE ONE TABLET BY MOUTH TWICE A DAY FOR LOW MAGNESIU M ORALLY DISCONT INUED 11/09/2022 [id number] 3 FRID,CHRI STIE L 2021 [facility] METFORMIN HCL 1000MG TAB TAKE ONE TABLET BY MOUTH EVERY DAY TO DECREASE BLOOD SUGAR ORALLY ACTIVE 04/10/2024 [id number] 3 CHEY SHELBY 2022 [facility] METFORMIN HCL 1000MG TAB TAKE ONE TABLET BY MOUTH EVERY DAY TO DECREASE BLOOD SUGAR ORALLY DISCONT INUED 04/03/2023 [id number] 3 CHEY SHELBY 2021 [facility] MOMETASONE FUROATE 100MCG/ACTU AT INHL,ORAL,1 20D,13GM INHALE 2 PUFFS BY MOUTH TWICE A DAY FOR COPD INHALA TION ORAL ACTIVE 04/10/2024 [id number] 3 CHEY SHELBY 2022 [facility] MOMETASONE FUROATE 100MCG/ACTU AT INHL,ORAL,1 20D,13GM INHALE 2 PUFFS BY MOUTH TWICE A DAY RINSE MOUTH AFTER USING ORALLY 09/15/2022 [id number] 3 CHEY SHELBY 2021 [facility] MULTIVITAMI NS CAP/TAB TAKE ONE TABLET BY MOUTH EVERY DAY ORALLY ACTIVE Sirisha SANTIAGO 2015 [facility]) NYSTATIN [id number]/M L SUSP,ORAL TAKE 1 TEASPOON FUL BY MOUTH FOUR TIMES A DAY FOR INTERMIT TENT THRUSH * MAKE SURE YOU SWISH AND THEN SWALLOW* ORALLY ACTIVE 03/09/2024 [id number] 3 FRID,CHRI STIE L 2022 [facility] OLODATEROL 2.5MCG/TIOT ROPIUM 2.5MCG/ACTU AT INHL,ORAL,6 0D,4GM INHALE 2 PUFFS BY INHALATI ON EVERY DAY TO PREVENT TROUBLE BREATHIN G INHALA TION ACTIVE 04/10/2024 [id number] 4 CHEY SHELBY MARKA K 2022 [facility] OLODATEROL 2.5MCG/TIOT ROPIUM 2.5MCG/ACTU AT INHL,ORAL,6 0D,4GM INHALE 2 PUFFS BY INHALATI ON EVERY DAY TO PREVENT TROUBLE BREATHIN G INHALA TION DISCONT INUED 04/03/2023 [id number] 3 CHEY SHELBY NDDarío K 2021 [facility] PHOSPHORUS 250MG/POTAS SIUM 280MG/SODIU M 160MG/PKT PWDR TAKE 1 PACKET BY MOUTH TWICE A DAY *MIX PACKET WITH 2.5 ML OF WATER OR JUICE. STIR WELL AND DRINK PROMPTLY ORALLY SUSPEND ED 07/17/2024 [id number] 4 FRID,CHRI STIE L 2023 [facility] PHOSPHORUS 250MG/POTAS SIUM 280MG/SODIU M 160MG/PKT PWDR TAKE 1 PACKET BY MOUTH TWICE A DAY *MIX PACKET WITH 2.5 ML OF WATER OR JUICE. STIR WELL AND DRINK PROMPTLY ORALLY DISCONT INUED 04/08/2023 [id number] 3 FRID,CHRI STIE L 2021 [facility] PROCHLORPER AZINE MALEATE 10MG TAB TAKE ONE TABLET BY MOUTH EVERY 6 HOURS NEEDED FOR NAUSEA AND VOMITING . DO NOT TAKE MORE THAN 40 MG PER DAY. ORALLY HOLD 11/22/2023 [id number] RAY MCCORMICK L 2022 [facility] PROCHLORPER AZINE MALEATE 10MG TAB TAKE ONE TABLET BY MOUTH EVERY 6 HOURS NEEDED FOR NAUSEA AND VOMITING . DO NOT TAKE MORE THAN 40 MG PER DAY. ORALLY 11/13/2022 [id number] HEMA SALGADO 2021 [facility] Allergies, Adverse Reactions, Alerts Combined list of allergies from Department of [facility] and Veterans Affairs facilities. It does not include entries that were removed or entered in error. Substance Category Reaction Severity Reaction type Status Date Reported Comments Source ATORVASTATIN Propensity to adverse reactions to drug (finding) Pain in lower limb active 6 [facility] SIMVASTATIN Propensity to adverse reactions to drug (finding) Muscle pain active 6 [facility] Immunizations Combined list of available immunizations from the Department of [facility] and Veterans [facility] facilities. Immunization Series Date Given Administered By Site Reaction Lot Number CVX Code Drug Resources Representative Status Comments Source COVID-19 ([employer]), MRNA, LNP-S, PF, ANGE-SUCROSE, 30 MCG/0.3 ML (AGES 12+ YEARS) 1 2022 Kaleb BARRERA LEFT DELTO ID [id number] 309 complet ed upper left deltoid [facility]) ZOSTER RECOMBINANT 2 2022 Kaleb BARRERA LEFT DELTO ID [id number] 187 complet ed DILUENT LOT#[id number] , exp. 01/13/2024 given in upper left deltoid. [facility] INFLUENZA, HIGH-DOSE, QUADRIVALENT 2022 Kaleb BARRERA LEFT DELTO ID [id number] A 197 complet ed [facility]) ZOSTER RECOMBINANT 1 2022 Kaleb BARRERA LEFT DELTO ID [id number] 187 complet ed DILUENT LOT# [id number] [facility] COVID-19 ([employer]), MRNA, LNP-S, BIVALENT BOOSTER, PF, 30 MCG/0.3 ML DOSE 1 2022 SETH ARIZA LEFT DELTO ID [id number] 300 complet ed [facility] INFLUENZA VACCINE, QUADRIVALENT, ADJUVANTED 2021 205 complet ed [facility] COVID-19 ([employer]), MRNA, LNP-S, PF, 30 MCG/0.3 ML DOSE, ANGE-SUCROSE (AGES 12+ YEARS) 2021 217 complet ed [facility] TDAP 2020 115 complet ed [facility] COVID-19 ([facility]), MRNA, LNP-S, PF, 30 MCG/0.3 ML DOSE 3 2020 208 complet ed PFR; [id number]; 1 [facility] INFLUENZA, INJECTABLE, QUADRIVALENT, PRESERVATIVE FREE 2020 150 complet ed [facility] COVID-19 ([facility]), MRNA, LNP-S, PF, 30 MCG/0.3 ML DOSE 2 2020 208 complet ed PFR; [id number]; 1 [facility] COVID-19 ([facility]), MRNA, LNP-S, PF, 30 MCG/0.3 ML DOSE 1 2020 208 complet ed PFR; [id number]; 1 [facility] INFLUENZA, INJECTABLE, QUADRIVALENT, PRESERVATIVE FREE 2019 150 complet ed [facility] INFLUENZA, SEASONAL, INJECTABLE, PRESERVATIVE FREE 2018 140 complet ed [facility] INFLUENZA, SEASONAL, INJECTABLE, PRESERVATIVE FREE 2017 140 complet ed [facility] INFLUENZA, HIGH DOSE SEASONAL 2016 135 complet ed [facility] TDAP 2016 115 complet ed gsk, [id number], 02-22-2019 [facility] INFLUENZA, HIGH DOSE SEASONAL 2014 135 complet ed [facility] PNEUMOCOCCAL CONJUGATE PCV 13 2014 133 complet ed [employer] Lot #[id number] Exp. 07/2016 [facility] PNEUMOCOCCAL, UNSPECIFIED FORMULATION 2012 109 complet ed [employer] [id number] [facility] ZOSTER LIVE 2011 121 [...] POLYSACCHARID E [id number] 2007 33 complet ed [facility] ZOSTER LIVE 2007 121 complet ed [facility] INFLUENZA, SEASONAL, INJECTABLE, PRESERVATIVE FREE 2006 140 complet ed [facility] TDAP 2006 115 complet ed Before Surgery for hernia [facility] PNEUMOCOCCAL, UNSPECIFIED FORMULATION 2006 109 complet ed [facility] TD (ADULT), 2 LF TETANUS TOXOID, PRESERVATIVE FREE, ADSORBED 2005 09 complet ed [facility] INFLUENZA, SEASONAL, INJECTABLE 1995 141 complet ed [facility] TD (ADULT), 2 LF TETANUS TOXOID, PRESERVATIVE FREE, ADSORBED 1991 09 complet ed [facility] Results Combined list of recent chemistry, hematology and other laboratory results from Department of Defense and Veterans Affairs, ranging from 15 months to all on record, depending upon the facility. Order Name Results Value Reference Range Date Interpretation Specimen Comments Source ELP/IMMF IX,URINE RANDOM PANEL PROTEIN [MASS/VOLU ME] IN URINE 12.5 <14.0 - 14.0 08/01 Specimen Type: URINE Comment: Urine immunotypin g performed. No monoclonal proteins identified. Ordering Provider: JYOTI GREER Report Released Date/Time: Jul 05, 2023 11:16 AM Reporting Lab: [facility] [id number] Performing Lab: [facility] [id number] [facility] ELP/IMMF IX,URINE RANDOM PANEL IMMUNOFIXA TION FOR URINE NO MONOCLON ALS DETECTED 08/01 Specimen Type: URINE Comment: Urine immunotypin g performed. No monoclonal proteins identified. Ordering Provider: JYOTI GREER Report Released Date/Time: Jul 05, 2023 11:16 AM Reporting Lab: [facility] [phone] Performing Lab: [facility] [phone] [place] [facility] ALBUMIN/ CREATINI NE RATIO URINE CREATININE [MASS/VOLU ME] IN URINE 69.7 58.0 - 161.0 08/01 Specimen Type: URINE No comment entered. Ordering Provider: JYOTI GREER Report Released Date/Time: Jul 05, 2023 11:16 AM Reporting Lab: [facility] [phone] Performing Lab: [facility] [address] [place] [facility] ALBUMIN/ CREATINI NE RATIO URINE MICROALBUM IN/CREATIN INE [MASS RATIO] IN URINE 23.5 <29.9 - 29.9 08/01 Specimen Type: URINE No comment entered. Ordering Provider: JYOTI GREER Report Released Date/Time: Jul 05, 2023 11:16 AM Reporting Lab: [facility] [phone] Performing Lab: [facility] [phone] [place] [facility] ALBUMIN/ CREATINI NE RATIO URINE MICROALBUM IN [MASS/VOLU ME] IN URINE 16.4 <29.9 - 29.9 08/01 Specimen Type: URINE No comment entered. Ordering Provider: JYOTI GREER Report Released Date/Time: Jul 05, 2023 11:16 AM Reporting Lab: [facility] [phone] Performing Lab: [facility] [address] [place] [facility] PROTEIN/ CREATINI NE RATIO URINE PROTEIN/CR EATININE [MASS RATIO] IN URINE 0.18 <0.19 - 0.19 08/01 Specimen Type: URINE No comment entered. Ordering Provider: JYOTI GREER Report Released Date/Time: Jul 05, 2023 11:16 AM Reporting Lab: [facility] [phone] Performing Lab: [facility] [address] [place] [facility] PROTEIN/ CREATINI NE RATIO URINE CREATININE [MASS/VOLU ME] IN URINE 69.1 58.0 - 161.0 08/01 Specimen Type: URINE No comment entered. Ordering Provider: JYOTI GREER Report Released Date/Time: Jul 05, 2023 11:16 AM Reporting Lab: [facility] [phone] Performing Lab: [facility] [address] [place] [facility] PROTEIN/ CREATINI NE RATIO URINE PROTEIN [MASS/VOLU ME] IN URINE 12.5 <14.0 - 14.0 08/01 Specimen Type: URINE No comment entered. Ordering Provider: JYOTI GREER Report Released Date/Time: Jul 05, 2023 11:16 AM Reporting Lab: [facility] [phone] Performing Lab: [facility] [phone] [place] [facility] URINALYS IS COLOR OF URINE LIGHT-YE LLOW 08/01 Specimen Type: URINE No comment entered. Ordering Provider: JYOTI GREER Report Released Date/Time: Jul 05, 2023 11:16 AM Reporting Lab: [facility] [phone] Performing Lab: [facility] [phone] [place] [facility] URINALYS IS SPECIFIC GRAVITY OF URINE 1.027 1.003 - 1.035 08/01 Specimen Type: URINE No comment entered. Ordering Provider: JYOTI GREER Report Released Date/Time: Jul 05, 2023 11:16 AM Reporting Lab: [facility] [phone] Performing Lab: [facility] [phone] [place] [facility] URINALYS IS BILIRUBIN. TOTAL [PRESENCE] IN URINE BY TEST STRIP NEGATIVE 08/01 Specimen Type: URINE No comment entered. Ordering Provider: JYOTI GREER Report Released Date/Time: Jul 05, 2023 11:16 AM Reporting Lab: [facility] [phone] Performing Lab: [facility] [phone] [place] [facility] URINALYS IS KETONES [MASS/VOLU ME] IN URINE BY TEST STRIP NEGATIVE 08/01 Specimen Type: URINE No comment entered. Ordering Provider: JYOTI GREER Report Released Date/Time: Jul 05, 2023 11:16 AM Reporting Lab: [facility] [phone] Performing Lab: [facility] [phone] [place] [facility] URINALYS IS GLUCOSE [MASS/VOLU ME] IN URINE BY TEST STRIP >1000 08/01 Specimen Type: URINE No comment entered. Ordering Provider: JYOTI GREER Report Released Date/Time: Jul 05, 2023 11:16 AM Reporting Lab: [facility] [phone] Performing Lab: [facility] [phone] [place] [facility] URINALYS IS PROTEIN [MASS/VOLU ME] IN URINE BY TEST STRIP NEGATIVE 08/01 Specimen Type: URINE No comment entered. Ordering Provider: JYOTI GREER Report Released Date/Time: Jul 05, 2023 11:16 AM Reporting Lab: [facility] [address] Performing Lab: [facility] [address] [place] [facility] URINALYS IS PH OF URINE BY TEST STRIP 5.0 5.0 - 8.0 08/01 Specimen Type: URINE No comment entered. Ordering Provider: JYOTI GREER Report Released Date/Time: Jul 05, 2023 11:16 AM Reporting Lab: [facility] [address] Performing Lab: [facility] [address] [place] [facility] URINALYS IS LEUKOCYTES [#/AREA] IN URINE SEDIMENT BY MICROSCOPY HIGH POWER FIELD 1 0 - 7 08/01 Specimen Type: URINE No comment entered. Ordering Provider: JYOTI GREER Report Released Date/Time: Jul 05, 2023 11:16 AM Reporting Lab: [facility] [address] Performing Lab: [facility] [address] [place] [facility] URINALYS IS BACTERIA [PRESENCE] IN URINE SEDIMENT BY LIGHT MICROSCOPY NONE SEEN 08/01 Specimen Type: URINE No comment entered. Ordering Provider: JYOTI GREER Report Released Date/Time: Jul 05, 2023 11:16 AM Reporting Lab: [facility] [address] Performing Lab: [facility] [address] [place] [facility] URINALYS IS ERYTHROCYT ES [#/AREA] IN URINE SEDIMENT BY MICROSCOPY HIGH POWER FIELD <1 0 - 3 08/01 Specimen Type: URINE No comment entered. Ordering Provider: JYOTI GREER Report Released Date/Time: Jul 05, 2023 11:16 AM Reporting Lab: [facility] [address] Performing Lab: [facility] [address] [place] [facility] URINALYS IS APPEARANCE OF URINE CLEAR 08/01 Specimen Type: URINE No comment entered. Ordering Provider: JYOTI GREER Report Released Date/Time: Jul 05, 2023 11:16 AM Reporting Lab: [facility] [address] Performing Lab: [facility] [address] [place] [facility] URINALYS IS EPITHELIAL CELLS.SQUA MOUS [#/AREA] IN URINE SEDIMENT BY MICROSCOPY HIGH POWER FIELD NONE SEEN 08/01 Specimen Type: URINE No comment entered. Ordering Provider: JYOTI GREER Report Released Date/Time: Jul 05, 2023 11:16 AM Reporting Lab: [facility] [address] Performing Lab: [facility] [address] [place] [facility] URINALYS IS HEMOGLOBIN [PRESENCE] IN URINE BY TEST STRIP TRACE 08/01 Specimen Type: URINE No comment entered. Ordering Provider: JYOTI GREER Report Released Date/Time: Jul 05, 2023 11:16 AM Reporting Lab: [facility] [address] Performing Lab: [facility] [address] [place] [facility] URINALYS IS NITRITE [PRESENCE] IN URINE BY TEST STRIP NEGATIVE 08/01 Specimen Type: URINE No comment entered. Ordering Provider: JYOTI GREER Report Released Date/Time: Jul 05, 2023 11:16 AM Reporting Lab: [facility] [address] Performing Lab: [facility] [address] [place] [facility] URINALYS IS LEUKOCYTE ESTERASE [PRESENCE] IN URINE BY TEST STRIP NEGATIVE 08/01 Specimen Type: URINE No comment entered. Ordering Provider: JYOTI GREER Report Released Date/Time: Jul 05, 2023 11:16 AM Reporting Lab: [facility] [address] Performing Lab: [facility] [address] [place] [facility] KAPPA/LA MBDA LC FREE,RAT IO KAPPA LIGHT CHAINS.RICHARD E [MASS/VOLU ME] IN SERUM 19.2 3.3 - 19.4 08/01 Specimen Type: SERUM Comment: Free kappa/lambd a [...] therapy of these disorders. Test Performed by [facility] [place], [facility] [place], [address] [place] [address] Robert Swift M.D., Ph.D., Director of Laboratorie s , CLIA [id number] Ordering Provider: XENIA SALGADO Report Released Date/Time: Jul 04, 2023 02:25 PM Reporting Lab: [facility] [address] Performing Lab: [address] [facility] KAPPA/LA MBDA LC FREE,RAT IO LAMBDA LIGHT CHAINS.RICHARD E [MASS/VOLU ME] IN SERUM OR PLASMA 42.6 5.7 - 26.3 08/01 H Specimen Type: SERUM Comment: Free kappa/lambd [...] therapy of these disorders. Test Performed by [employer], [facility] [place], [address] [place], [place] Robert Swift M.D., Ph.D., Director of Laboratorie s , CLIA [id number] Ordering Provider: XENIA SALGADO Report Released Date/Time: Jul 04, 2023 02:25 PM Reporting Lab: [facility] [address] Performing Lab: [address] [facility] IS [facility] KAPPA/LA MBDA LC FREE,RAT IO KAPPA LIGHT CHAINS.RICHARD E/LAMBDA LIGHT CHAINS.RICHARD E [MASS RATIO] IN SERUM 0.45 0.26 - 1.65 08/01 Specimen Type: SERUM Comment: Free kappa/lambd a [...] therapy of these disorders. Test Performed by [employer], [employer] [facility] [place], [address] [place], [place] Robert Swift M.D., Ph.D., Director of Laboratorie s , CLIA [id number] Ordering Provider: XENIA SALGADO Report Released Date/Time: Jul 04, 2023 02:25 PM Reporting Lab: [facility] [address] Performing Lab: [address] [facility] IS [facility] ELP/IMMF IX,SERUM PANEL PROTEIN [MASS/VOLU ME] IN SERUM OR PLASMA 6.0 6.0 - 8.3 08/01 Specimen Type: SERUM Comment: IM FIX ADDED - Band(s) present. See Identificat ion in report. Peak(s) too small to quantitate. Ordering Provider: XENIA SALGADO Report Released Date/Time: Jul 04, 2023 02:25 PM Reporting Lab: [facility] [address] Performing Lab: [facility] [address] [place] [facility] ELP/IMMF IX,SERUM PANEL IMMUNOFIXA TION FOR SERUM OR PLASMA IgA lambda 08/01 Specimen Type: SERUM Comment: IM FIX ADDED - Band(s) present. See Identificat ion in report. Peak(s) too small to quantitate. Ordering Provider: XENIA SALAGDO Report Released Date/Time: Jul 04, 2023 02:25 PM Reporting Lab: [place] [phone] Performing Lab: [place] [address] [place] [facility] ELP/IMMF IX,SERUM PANEL ALBUMIN [MASS/VOLU ME] IN SERUM OR PLASMA BY ELECTROPHO RESIS 3.98 3.66 - 4.78 08/01 Specimen Type: SERUM Comment: IM FIX ADDED - Band(s) present. See Identificat ion in report. Peak(s) too small to quantitate. Ordering Provider: XENIA SALGADO Report Released Date/Time: Jul 04, 2023 02:25 PM Reporting Lab: [facility] [address] Performing Lab: [facility] [address] [place] [facility] ELP/IMMF IX,SERUM PANEL ALPHA 1 GLOBULIN [MASS/VOLU ME] IN SERUM OR PLASMA BY ELECTROPHO RESIS 0.28 0.14 - 0.38 08/01 Specimen Type: SERUM Comment: IM FIX ADDED - Band(s) present. See Identificat ion in report. Peak(s) too small to quantitate. Ordering Provider: XENIA SALGADO Report Released Date/Time: Jul 04, 2023 02:25 PM Reporting Lab: [facility] [address] Performing Lab: [place] [address] [place] [facility] ELP/IMMF IX,SERUM PANEL ALPHA 2 GLOBULIN [MASS/VOLU ME] IN SERUM OR PLASMA BY ELECTROPHO RESIS 0.74 0.50 - 0.90 08/01 Specimen Type: SERUM Comment: IM FIX ADDED - Band(s) present. See Identificat ion in report. Peak(s) too small to quantitate. Ordering Provider: XENIA SALGADO Report Released Date/Time: Jul 04, 2023 02:25 PM Reporting Lab: [place] [address] Performing Lab: [place] [address] [place] [facility] ELP/IMMF IX,SERUM PANEL BETA 1 GLOBULIN [MASS/VOLU ME] IN SERUM OR PLASMA BY ELECTROPHO RESIS 0.43 0.33 - 0.55 08/01 Specimen Type: SERUM Comment: IM FIX ADDED - Band(s) present. See Identificat ion in report. Peak(s) too small to quantitate. Ordering Provider: XENIA SALGADO Report Released Date/Time: Jul 04, 2023 02:25 PM Reporting Lab: [place] [address] Performing Lab: [place] [address] [place] [facility] ELP/IMMF IX,SERUM PANEL BETA 2 GLOBULIN [MASS/VOLU ME] IN SERUM OR PLASMA BY ELECTROPHO RESIS 0.25 0.20 - 0.52 08/01 Specimen Type: SERUM Comment: IM FIX ADDED - Band(s) present. See Identificat ion in report. Peak(s) too small to quantitate. Ordering Provider: XENIA SALGADO Report Released Date/Time: Jul 04, 2023 02:25 PM Reporting Lab: [address] Performing Lab: [place] [address] [place] [facility] ELP/IMMF IX,SERUM PANEL GAMMA GLOBULIN [MASS/VOLU ME] IN SERUM OR PLASMA BY ELECTROPHO RESIS 0.33 0.58 - 1.72 08/01 L Specimen Type: SERUM Comment: IM FIX ADDED - Band(s) present. See Identificat ion in report. Peak(s) too small to quantitate. Ordering Provider: FRID,XENIA IE L Report Released Date/Time: Jul 04, 2023 02:25 PM Reporting Lab: [facility] [address] Performing Lab: [place] [phone] [facility] ELP/IMMF IX,SERUM PANEL PROTEIN [MASS/VOLU ME] IN SERUM OR PLASMA 6.0 6.0 - 8.3 08/01 Specimen Type: SERUM Comment: IM FIX ADDED - Band(s) present. See Identificat ion in report. Peak(s) too small to quantitate. Ordering Provider: XENIA SALGADO Report Released Date/Time: Jul 04, 2023 02:25 PM Reporting Lab: [facility] [address] Performing Lab: [place] [phone] [facility] ELP/IMMF IX,SERUM PANEL IMMUNOELEC TROPHORESI S FOR SERUM OR PLASMA [place] AL 08/01 Specimen Type: SERUM Comment: IM FIX ADDED - Band(s) present. See Identificat ion in report. Peak(s) too small to quantitate. Ordering Provider: XENIA SALGADO Report Released Date/Time: Jul 04, 2023 02:25 PM Reporting Lab: [facility] [address] Performing Lab: [facility] [address] [facility] TSH W/REFLEX TO FREE T4 THYROTROPI N [UNITS/VOL UME] IN SERUM OR PLASMA 1.18 0.35 - 4.94 08/01 Specimen Type: PLASMA No comment entered. Ordering Provider: XENIA SALGADO Report Released Date/Time: Jul 04, 2023 02:25 PM Reporting Lab: [facility] [address] Performing Lab: [facility] [address] [facility] LD,TOTAL LACTATE DEHYDROGEN ASE [ENZYMATIC ACTIVITY/V OLUME] IN SERUM OR PLASMA BY LACTATE TO PYRUVATE REACTION 109 125 - 220 08/01 L Specimen Type: PLASMA No comment entered. Ordering Provider: XENIA SALGADO Report Released Date/Time: Jul 04, 2023 02:25 PM Reporting Lab: [facility] [address] Performing Lab: [facility] [address] [facility] URIC ACID URATE [MASS/VOLU ME] IN SERUM OR PLASMA 6.9 3.5 - 7.2 08/01 Specimen Type: PLASMA No comment entered. Ordering Provider: XENIA SALGADO Report Released Date/Time: Jul 04, 2023 02:25 PM Reporting Lab: [facility] [address] Performing Lab: [facility] [address] [facility] Vital Signs Combined list of inpatient and outpatient Vital Signs from Department of Defense and Veterans Affairs, ranging from 12 months to all on record, depending upon the facility. Vital Sign Value Date Comments Source SYSTOLIC BLOOD PRESSURE 139 08/01/2023 10:18:04 [facility] DIASTOLIC BLOOD PRESSURE 75 08/01/2023 10:18:04 [facility] PULSE OXIMETRY 96% 08/01/2023 10:18:04 [facility] WEIGHT 213.3 08/01/2023 10:18:04 [place] [facility] BMI 34kg/m2 08/01/2023 10:18:04 [place] [facility] PAIN 0 08/01/2023 10:18:04 [place] [facility] TEMPERATURE 97.7 08/01/2023 10:18:04 [place] [facility] PULSE 97 08/01/2023 10:18:04 [place] [facility] RESPIRATION 80 08/01/2023 10:18:04 [place] [facility] SYSTOLIC BLOOD PRESSURE 100 07/04/2023 13:35:54 [facility] DIASTOLIC BLOOD PRESSURE 63 07/04/2023 13:35:54 [facility] PULSE OXIMETRY 93% 07/04/2023 13:35:54 [place] [facility] WEIGHT 208.4 07/04/2023 13:35:54 [place] [facility] BMI 34kg/m2 07/04/2023 13:35:54 [place] [facility] PAIN 0 07/04/2023 13:35:54 [place] [facility] TEMPERATURE 96.8 07/04/2023 13:35:54 [place] [facility] PULSE 100 07/04/2023 13:35:54 [place] [facility] RESPIRATION 18 07/04/2023 13:35:54 [facility] SYSTOLIC BLOOD PRESSURE 118 06/05/2023 12:50:44 [place] ([facility]) DIASTOLIC BLOOD PRESSURE 71 06/05/2023 12:50:44 [place] [facility] PULSE OXIMETRY 94% 06/05/2023 12:50:44 [place] ([facility]) WEIGHT 211.5 06/05/2023 12:50:44 [facility] ([facility] BMI 34kg/m2 06/05/2023 12:50:44 [facility] PAIN 0 06/05/2023 12:50:44 [facility] TEMPERATURE 98.9 06/05/2023 12:50:44 [facility] ([facility]) PULSE 97 06/05/2023 12:50:44 [facility] RESPIRATION 16 06/05/2023 12:50:44 [facility] [place] ([facility]) SYSTOLIC BLOOD PRESSURE 135 05/07/2023 14:10:43 [facility] DIASTOLIC BLOOD PRESSURE 72 05/07/2023 14:10:43 [facility] PULSE OXIMETRY 98% 05/07/2023 14:10:43 [facility] WE[facility] 215.1 05/07/2023 14:10:43 [facility] BMI 35kg/m2 05/07/2023 14:10:43 [facility] PAIN 0 05/07/2023 14:10:43 [facility] HEIGHT 66 05/07/2023 14:10:43 [facility] TEMPERATURE 98.1 05/07/2023 14:10:43 [facility] PULSE 101 05/07/2023 14:10:43 [facility] RESPIRATION 20 05/07/2023 14:10:43 [facility] SYSTOLIC BLOOD PRESSURE 113 04/10/2023 14:44:48 [place] ([facility]) DIASTOLIC BLOOD PRESSURE 71 04/10/2023 14:44:48 [place] ([facility]) PULSE OXIMETRY 92% 04/10/2023 14:44:48 [place] ([facility]) WEIGHT 212.4 04/10/2023 14:44:48 [facility] ([facility] BMI 34kg/m2 04/10/2023 14:44:48 [facility] PAIN 1 04/10/2023 14:44:48 [facility] HEIGHT 66 04/10/2023 14:44:48 [facility] TEMPERATURE 98.9 04/10/2023 14:44:48 [facility] ([facility]) PULSE 105 04/10/2023 14:44:48 [facility] ([facility]) RESPIRATION 18 04/10/2023 14:44:48 [facility] ([facility]) Encounters Combined list of: 1) Encounters from [facility] facilities going back up to thelast 18 months. 2) Encounters from the Department of [facility] facilities going back up to 280 months. Location Location Details Encounter Type Encounter Number Reason For Visit Attending Provider ADM Date DC Date Status Disposition Source [facility] Outpatient Encounter [id number] LISA SALGADO 02/10 [facility] Outpatient Encounter [id number] 02/22 [facility] PRO PHONE CALL 21-30 MIN [id number] Diagnos is: ICD-10- CM E11.9 Type 2 diabete s mellitu s without complic ations< br/> CECILIO SMITH A 03/06 [facility] Outpatient Encounter [id number] Diagnos is: ICD-10- CM C90.00 Multipl e myeloma not having achieve d remissi on
LISA SALGADO 03/07 [facility] PRO PHONE CALL 5-10 MIN [id number] Diagnos is: ICD-10- CM C90.00 Multipl e myeloma not having achieve d remissi on
GABRIELA LOPEZ 03/09 [facility] Outpatient Encounter [id number] LISA SALGADO 03/09 [facility] ([facility] OFFICE O/P EST MOD 30-39 MIN [id number] Diagnos is: ICD-10- CM Z00.00 Encntr for general adult medical exam w/o abnorma l finding s
CHEY SHELBYMireya NEDRA K 03/30 [place] [facility] IS [facility] Outpatient Encounter [id number] Diagnos is: ICD-10- CM C90.00 Multipl e myeloma not having achieve d remissi on
FRID,LISA CID Breanna 04/07 [facility] Outpatient Encounter [id number] FRID,LISA JOSE ROBERTO Carlos 04/07 [facility] IS [facility] PRO PHONE CALL 5-10 MIN [id number] Diagnos is: ICD-10- CM C90.00 Multipl e myeloma not having achieve d remissi on
GABRIELA LOPEZ 04/28 [facility] IS [facility] Outpatient Encounter [id number] Diagnos is: ICD-10- CM C90.00 Multipl e myeloma not having achieve d remissi on
FRID,LISA CID Breanna 05/09 [facility] IS [facility] Outpatient Encounter [id number] FRIDLISA JOSE ROBERTO Carlos 05/09 [facility] IS [facility] Outpatient Encounter [id number] 05/11 [facility] IS [facility] Outpatient Encounter [id number] Diagnos is: ICD-10- CM C90.00 Multipl e myeloma not having achieve d remissi on
FRID,LISA JOSE ROBERTO Carlos 05/30 [facility] IS [facility] Outpatient Encounter [id number] 06/05 [facility] IS [facility] QNHP OL DIG ASSMT&MGMT 5-10 [id number] Diagnos is: ICD-10- CM E11.9 Type 2 diabete s mellitu s without complic ations< br/> LUISCECILIO A 06/05 [facility] IS [facility] Outpatient Encounter [id number] FRID,LISA CID Breanna 06/05 [facility] IS [facility] Outpatient Encounter [id number] Diagnos is: ICD-10- CM C90.00 Multipl e myeloma not having achieve d remissi on
FRID,LISA JOSE ROBERTO Carlos 06/27 [facility] IS [facility] Outpatient Encounter [id number] FRID,LISA CID Breanna 06/28 [facility] IS [facility] Outpatient Encounter [id number] 06/29 [facility] ([facility]) ADM SARSCV2 BVL 30MCG/.3ML B [id number] Diagnos is: ICD-10- CM Z23 Encount er for immuniz ation<b r/> AMINATA ARIZA 07/19 [place] ([facility]) [facility] OFFICE O/P EST HI 40-54 MIN [id number] Diagnos is: ICD-10- CM C90.00 Multipl e myeloma not having achieve d remissi on
FRID,LISA JOSE ROBERTO Carlos 07/26 [facility] IS [facility] Outpatient Encounter [id number] FRID,LISA JOSE ROBERTO Carlos 07/26 [facility] IS [facility] Outpatient Encounter [id number] Diagnos is: ICD-10- CM C90.00 Multipl e myeloma not having achieve d remissi on
FRID,LISA JOSE ROBERTO Carlos 08/25 [facility] IS [facility] Outpatient Encounter [id number] FRID,LISA CID Breanna 08/25 [place] [facility] [place] [facility] Outpatient Encounter [id number] Diagnos is: ICD-10- CM C90.00 Multipl e myeloma not having achieve d remissi on
FRID,LISA CID Breanna 09/22 [place] [facility] Outpatient Encounter [id number] FRID,LISA CID Breanna 09/26 [place] [facility] Outpatient Encounter [id number] 09/27 [place] [facility] IS [facility] Outpatient Encounter [id number] Diagnos is: ICD-10- CM C90.00 Multipl e myeloma not having achieve d remissi on
FRID,LISA JOSE ROBERTO Carlos 10/20 [facility] Outpatient Encounter [id number] FRID,LISA CID Breanna 10/24 [facility] Outpatient Encounter [id number] Diagnos is: ICD-10- CM C90.00 Multipl e myeloma not having achieve d remissi on
FRID,LISA JOSE ROBERTO Carlos 11/14 [facility] Outpatient Encounter [id number] ETELVINA MCCORMICK 11/21 [place] [facility] Outpatient Encounter [id number] Diagnos is: ICD-10- CM C90.00 Multipl e myeloma not having achieve d remissi on
FRID,LISA JOSE ROBERTO Carlos 12/12 [facility] Outpatient Encounter [id number] FRID,LISA JOSE ROBERTO Carlos 12/19 [facility] OFFICE O/P EST HI 40-54 MIN [id number] Diagnos is: ICD-10- CM C90.00 Multipl e myeloma not having achieve d remissi on
STEVEN RAGSDALE 01/10 [facility] Outpatient Encounter [id number] 01/11 [place] [facility] [place] [facility] Outpatient Encounter [id number] FRID,LISA JOSE ROBERTO Carlos 01/12 [facility] [place] [facility] Outpatient Encounter [id number] Diagnos is: ICD-10- CM C90.00 Multipl e myeloma not having achieve d remissi on
FRID,LISA JOSE ROBERTO Carlos 02/09 [facility] Outpatient Encounter [id number] FRID,LISA JOSE ROBERTO Carlos 02/13 [facility] IS [facility] Outpatient Encounter [id number] Diagnos is: ICD-10- CM C90.00 Multipl e myeloma not having achieve d remissi on
FRID,LISA JOSE ROBERTO Carlos 03/09 [facility] Outpatient Encounter [id number] FRID,LISA JOSE ROBERTO Carlos 03/09 [facility] Outpatient Encounter [id number] 03/19 [facility] Outpatient Encounter [id number] 04/10 [facility] ([facility]) OFFICE O/P EST HI 40-54 MIN [id number] Diagnos is: ICD-10- CM J44.1 Chronic obstruc tive pulmona ry disease w (acute) exacerb ation<b r/> KAIT SHELBY 04/10 [facility] ([facility]) [facility] Outpatient Encounter [id number] [phone] Diagnos is: ICD-10- CM C90.00 Multipl e myeloma not having achieve d remissi on
FRID,LISA Carlos 04/13 [facility] IS [facility] Outpatient Encounter [id number] FRID,LISA Carlos 04/17 [facility] IS [facility] OFFICE O/P EST HI 40-54 MIN [id number] Diagnos is: ICD-10- CM C90.00 Multipl e myeloma not having achieve d remissi on
FRID,LISA Carlos 05/07 [facility] IS [facility] Outpatient Encounter [id number] 05/07 [facility] IS [facility] Outpatient Encounter [id number] FRID,LISA Carlos 05/10 [facility] IS [facility] Outpatient Encounter [id number] 05/25 [facility] ([facility]) [facility]LE[facility] FAC[facility] FEE [id number] Diagnos is: ICD-10- CM C90.00 Multipl e myeloma not having achieve d remissi on
FRID,LISA Carlos 06/05 [facility] ([facility]) [facility] IS [facility] OFFICE O/P EST MOD 30-39 MIN [id number] Diagnos is: ICD-10- CM C90.00 Multipl e myeloma not having achieve d remissi on
FRID,LISA Carlos 06/05 [facility] IS [facility] Outpatient Encounter [id number] FRID,LISA Carlos 06/07 [facility] ([facility]) IMMUNIZATI ON ADMIN [id number] Diagnos is: ICD-10- CM Z23 Encount er for immuniz ation<b r/> RODGER KILPATRICK 06/11 [facility] [place] [facility] Outpatient Encounter [id number] 06/21 [place] [facility] [place] [facility] Outpatient Encounter [id number] OLYAHORACE Perez 06/30 [place] [facility] IS [facility] OFFICE O/P EST HI 40-54 MIN [id number] Diagnos is: ICD-10- CM C90.00 Multipl e myeloma not having achieve d remissi on
FRID,LISA TIE L 07/04 [facility] [place] [facility] Outpatient Encounter [id number] NAOMI,LISA TIE L 07/04 [facility] Outpatient Encounter [id number] Diagnos is: ICD-10- CM N18.9 Chronic kidney disease , unspeci fied
JYOTI GREER Y 07/04 [facility] IS [facility] OFFICE O/P EST HI 40 MIN [id number] Diagnos is: ICD-10- CM C90.00 Multipl e myeloma not having achieve d remissi on
FRID,LISA TIE L 08/01 [facility] Outpatient Encounter [phone] Diagnos is: ICD-10- CM N18.9 Chronic kidney disease , unspeci fied
JYOTI GREER Y 08/01 [facility] Outpatient Encounter [id number] FRID,LISA CID L 08/01 [facility] Social History Combined list of available smoking, tobacco, and other social history from Department of Defense and Veterans Affairs facilities. Social History Type Response Date Comment Sourc e Tobacco smoking status [facility] VA-TOBACCO FORMER USER 04/10/2023 [place] ([facility]) History of tobacco use VA-TOBACCO QUIT 5 TO < 15 YRS 04/10/2023 [place] ([facility]) History of tobacco use VA-TOBACCO FORMER USER 03/30/2022 [place] ([facility]) History of tobacco use VA-TOBACCO FORMER USER 03/30/2021 [place] ([facility]) History of tobacco use VA-TOBACCO FORMER USER 03/16/2020 [place] ([facility]) History of tobacco use VA-TOBACCO QUIT 5 TO < 15 YRS 08/22/2018 [place] ([facility]) History of tobacco use FORMER TOBACCO US ER 7Y OR GREATER 01/24/2018 [place] ([facility]) History of tobacco use FORMER TOBACCO US E >1Y <7Y 03/15/2017 [place] ([facility]) History of tobacco use FORMER TOBACCO US E >1Y <7Y 11/16/2015 [place] ([facility]) History of tobacco use FORMER TOBACCO US E >1Y <7Y 02/12/2015 [place] ([facility]) History of tobacco use FORMER TOBACCO US E >1Y <7Y 02/12/2014 [place] ([facility]) History of tobacco use FORMER TOBACCO US E >1Y <7Y 01/02/2013 [place] ([facility]) History of tobacco use FORMER TOBACCO US E >1Y <7Y 03/27/2011 [place] ([facility]) History of tobacco use FORMER TOBACCO USE <1Y 04/14/2010 [place] ([facility]) History of tobacco use FORMER TOBACCO USE <1Y 06/15/2009 [place] ([facility]) History of tobacco use FORMER TOBACCO USE <1Y 05/28/2008 [place] ([facility]) Plan of Care List of future care activities from Department of Veterans Affairs facilities. Additional future care activities may be listed in the Assessment and Plan section. Date/Time Care Activity Care Activity Detail Facili ty 08/29/2023 AMBULATORY - NONE AMBULATORY - NONE [facility]
[2023-08-11 06:57] VITALS: BP 186/88; PULSE 113; RESP 24; TEMP 36.8; O2SAT 96; BMI 32.9
--- NOTE | 2023-08-11 07:00 | CRLHL7_ITS ---
For Patients: As a result of the Century Cures Act, medical imaging exams and procedure reports are released immediately into your electronic medical record. You may view this report before your referring provider. If you have questions, please contact your health care provider. INDICATION: Shortness of breath TECHNIQUE: Chest 2 views. COMPARISON: Chest x-ray 11/18/2021 FINDINGS: The heart is normal in size. The pulmonary vasculature is within normal limits. The lungs are clear without focal consolidation, pleural effusion or pneumothorax. Stable deformity of the right rib. Multilevel degenerative changes of the spine. IMPRESSION: Stable chest without acute process. Dictated by Shamika Grande MD @ 08/11/2023 8:06:05 AM Dictated by: Shamika Grande MD @ 08/11/2023 08:06:46 (Electronically Signed)
--- OUTSIDE RECORDS SUMMARY | 2023-08-11 07:03 | XMS_ITS | Encounter Summary ---
Author Name [facility] [employer] Organization [facility] Address [address] [place] [id number] Support Name Relationship Address Phone ROSA BARNETT Next of Kin [address] [place] [address] ROSA BARNETT Emergency Contact [address] [place] [address] BUCK BIRD Next of Kin [address] [place] [address] Insurance Providers: All historical and current Section Date Range: From patient's date of to the date document was created. This section includes the names of all active insurance providers for the patient. Insurance Provider Type of Coverage Plan Name Start of Policy Coverage End of Policy Coverage Group Number Member ID Insurance Provider's Telephone Number Policy Colbert's Name Patient's Relationship to Policy Colbert [employer] [facility] (WNR) MEDICARE ADVANTAGE [facility] ([facility]) Jul 09, 2022 [id number] TIJERINADARIUS PATIENT MEDICA [facility] ([facility]) MEDICARE ADVANTAGE [facility] ([facility]) Jul 09, 2018 [id number] [phone] DARIUS TIJERINA PATIENT MEDICARE (WNR) MEDICARE (M) PART A Aug 09, 2011 PART A [id number] [phone] DARIUS TIJERINA PATIENT MEDICARE (WN) MEDICARE (M) PART B Aug 09, 2011 PART B [id number] [phone] DARIUS TIJERINA PATIENT Selected Encounter This section includes the information on record at [place] for the Encounter. Date/Time Encounter Type Encounter Description Reason Provider Source Jul 04, 2023 02:00 PM OFFICE O/P EST HI 40-54 MIN ONCOLOGY/TUMOR ICD-10-CM C90.00 Multiple myeloma not having achieved remission JANE GARCIA [facility] Encounter Template Text not used by [place] Assessments - Encounter Diagnoses This section includes the primary and secondary diagnoses documented for the Encounter. Date/Time Primary/Secondary Diagnosis Diagnosis Name Provider Source Jul 04, 2023 06:16 PM PRIMARY Multiple myeloma not having achieved remission JANE GARCIA [facility] Jul 04, 2023 06:16 PM SECONDARY Chronic kidney disease, unspecified JANE GARCIA [facility] Jul 04, 2023 06:16 PM SECONDARY Hypomagnesemia NAOMIJANE L [facility] Jul 04, 2023 06:16 PM SECONDARY Polyneuropathy, unspecified [facility] Plan of Treatment: Future Appointments (+ 6 months) and Future Tests (+/- 45 days) The Plan of Treatment section includes future care activities for the patient from all [place] [facility]. This section includes future appointments and future orders which are active, pending or scheduled. Future Appointments This section includes appointments that were scheduled to occur 6 months from the date of the Encounter, up to a maximum of 20 appointments. The data comes from all [facility]. Appointment Date/Time Appointment Type Appointme nt Facility Name Aug 01, 2023 10:00 AM AMBULATORY - NONE [facility] Aug 01, 2023 10:30 AM AMBULATORY - MEDICINE [facility] Aug 01, 2023 11:00 AM AMBULATORY - MEDICINE [facility] Aug 29, 2023 12:00 PM AMBULATORY - NONE [facility] Aug 29, 2023 12:15 PM AMBULATORY - NONE [facility] Aug 29, 2023 01:00 PM AMBULATORY - MEDICINE [facility] Oct 17, 2023 01:30 PM AMBULATORY - MEDICINE [facility] ([facility]) Active, Pending, and Scheduled Orders This section includes a listing of several types of active, pending, and scheduled orders, including clinic medications orders, diagnostic test orders, procedure orders and consult orders; where the start date of the order is 45 days before the date of the Encounter or 45 days after the date of theEncounter. The data comes from all [facility]. Test Date/Time Test Type Test Details Facility Name Aug 07, 2023 12:00 AM Laboratory - Chemi stry Order HEMOGLOBIN A1C BLOOD [facility] ([facility]) Lab Results: +/- 30 days of the encounter This section includes the Chemistry and Hematology Lab Results on record with [place] for the patient. Radiology Reports and Pathology Reports are provided separately, in subsequent sections. Lab Results This section contains the Chemistry/Hematology Results that were resulted 30 days before or 30 daysafter the date of the Encounter. Date/Time Source Result Type Result - Unit Interpretation Reference Range Comment Aug 01, 2023 10:20 AM [facility] ELP/IMMFIX,URINE RANDOM PANEL Specimen Type: URINE Comment: Urine immunotyping performed. No monoclonal proteins identified. Ordering Provider: JYOTI GREER Report Released Date/Time: Jul 05, 2023 11:16 AM Reporting Lab: [facility] [address] Performing Lab: [facility] [address] PROTEIN,T. RANDOM UR 12.5 <14.0 .INTERPRETATIO N,UR NO MONOCLONALS DETECTED Aug 01, 2023 10:20 AM [facility] ALBUMIN/CREATININE RATIO URINE Specimen Type: URINE No comment entered. Ordering Provider: JYOTI GREER Report Released Date/Time: Jul 05, 2023 11:16 AM Reporting Lab: [facility] [address] Performing Lab: [facility] [address] CREATININE,UR RANDOM 69.7 58.0-161.0 ALB/CREAT RATIO,UR 23.5 <29.9 ALBUMIN,UR 16.4 <29.9 Aug 01, 2023 10:20 AM [facility] PROTEIN/CREATININE RATIO URINE Specimen Type: URINE No comment entered. Ordering Provider: JYOTI GREER Report Released Date/Time: Jul 05, 2023 11:16 AM Reporting Lab: [facility] [address] Performing Lab: [facility] [address] PROTEIN/CREATI NINE RATIO 0.18 <0.19 CREATININE,UR RANDOM 69.1 58.0-161.0 PROTEIN,T. RANDOM UR 12.5 <14.0 Aug 01, 2023 10:20 AM [facility] URINALYSIS Specimen Type: URINE No comment entered. Ordering Provider: JYOTI GREER Report Released Date/Time: Jul 05, 2023 11:16 AM Reporting Lab: [facility] [address] Performing Lab: [facility] [address] URINE COLOR LIGHT-YELLOW SPECIFIC GRAVITY 1.027 1.003-1.03 5 URINE BILIRUBIN NEGATIVE NEGATIVE URINE KETONES NEGATIVE NEGATIVE URINE GLUCOSE >1000 See_Co mmen t URINE PROTEIN NEGATIVE See_Co mmen t URINE PH 5.0 5.0-8.0 URINE WBC/HPF 1 0-7 URINE BACTERIA NONE SEEN URINE RBC/HPF <1 0-3 APPEARANCE CLEAR SQUAMOUS EPITHELIAL NONE SEEN URINE BLOOD TRACE NEGATIVE URINE NITRITE NEGATIVE NEGATIVE LEUKOCYTE ESTERASE NEGATIVE NEGATIVE Aug 01, 2023 09:56 AM [facility] KAPPA/LAMBDA LC FREE,RATIO Specimen Type: SERUM Comment: Free kappa/lambda ratio in serum of normal individuals is 0.26-1.65. Excess production of free kappa or lambda chains can alter the ratio. Monoclonal free light chains are found in the serum of patients with multiple myeloma, Waldenstrom's macroglobulinemi a, mu-heavy chain disease, primary amyloidosis, light chain deposition disease, monoclonal gammopathy of undetermined significance, and lymphoproliferat fay disorders. Measurement of free light chain concen- tration in serum is useful for diagnosis, prognosis, monitoring disease activity and following response to therapy of these disorders. Test Performed by [facility], [facility], [address] [place] [address] Robert Swift M.D., Ph.D., Director of Laboratories , [place] [id number] Ordering Provider: JANE GARCIA Report Released Date/Time: Jul 04, 2023 02:25 PM Reporting Lab: [facility] [address] Performing Lab: [address] .KAPPA LT CHAIN,FREE 19.2 3.3-19.4 .LAMBDA LC,FREE 42.6 H 5.7-26.3 .KAPPA/LAMBDA, FREE 0.45 0.26-1.65 Aug 01, 2023 09:56 AM [facility] ELP/IMMFIX,SERUM PANEL Specimen Type: SERUM Comment: IM FIX ADDED - Band(s) present. See Identification in report. Peak(s) too small to quantitate. Ordering Provider: JANE GARCIA Report Released Date/Time: Jul 04, 2023 02:25 PM Reporting Lab: [facility] [address] Performing Lab: [facility] [address] PROTEIN,TOTAL 6.0 6.0-8.3 .IDENTIFICATIO N 1 IgA lambda .ALBUMIN FRACTION 3.98 3.66-4.78 .ALPHA 1 FRACTION 0.28 0.14-0.38 .ALPHA 2 FRACTION 0.74 0.50-0.90 .BETA 1 FRACTION 0.43 0.33-0.55 .BETA 2 FRACTION 0.25 0.20-0.52 .GAMMA FRACTION 0.33 L 0.58-1.72 .TOTAL PROTEIN 6.0 6.0-8.3 .INTERPRETATIO N MONOCLONAL Aug 01, 2023 09:56 AM [facility] COMPREHENSIVE METABOLIC PANEL+MG Specimen Type: PLASMA Comment: Automated Differential Performed Ordering Provider: JANE GARCIA Report Released Date/Time: Jul 04, 2023 02:25 PM Reporting Lab: [facility] [address] Performing Lab: [facility] Aug 01, 2023 09:56 AM [facility] TSH W/REFLEX TO FREE T4 Specimen Type: PLASMA No comment entered. Ordering Provider: JANE GARCIA Report Released Date/Time: Jul 04, 2023 02:25 PM Reporting Lab: [facility] [phone] Performing Lab: [facility] [address] TSH 1.18 0.35-4.94 Aug 01, 2023 09:56 AM [facility] URIC ACID Specimen Type: PLASMA No comment entered. Ordering Provider: JANE GARCIA Report Released Date/Time: Jul 04, 2023 02:25 PM Reporting Lab: [facility] [address] Performing Lab: [facility] [address] URIC ACID 6.9 3.5-7.2 Aug 01, 2023 09:56 AM [facility] RENAL FUNCTION PANEL Specimen Type: PLASMA Comment: Automated Differential Performed Ordering Provider: JYOTI GREER Report Released Date/Time: Jul 05, 2023 11:16 AM Reporting Lab: [facility] [phone] Performing Lab: [facility] Aug 01, 2023 09:56 AM [facility] LD,TOTAL Specimen Type: PLASMA No comment entered. Ordering Provider: JANE GARCIA Report Released Date/Time: Jul 04, 2023 02:25 PM Reporting Lab: [facility] [phone] Performing Lab: [facility] [address] LD,TOTAL 109 L 125-220 Aug 01, 2023 09:56 AM [facility] CBC & DIFF Specimen Type: BLOOD Comment: Automated Differential Performed Ordering Provider: JANE GARCIA Report Released Date/Time: Jul 04, 2023 02:25 PM Reporting Lab: [facility] [address] Performing Lab: [facility] [address] WBC 4.33 4.0-11.0 RBC 4.10 L 4.6-6.2 HGB 13.1 L 13.5-17.9 HCT 39.2 L 41-54 MCV 95.6 80-100 MCH 32.0 27-33 MCHC 33.4 32.0-37.5 PLT 104 L 150-400 MPV 10.2 7.4-10.4 NEUT 64.8 40.0-80.0 LYMPHS 20.3 15.0-45.0 MONO 12.5 H 2.0-12.0 EOSINO 0.5 0.0-6.0 BASO 0.7 0.0-2.0 RDW 14.6 H 11.5-14.5 ABS LYMPH 0.88 L 1.0-4.0 ABS MONO 0.54 0.1-1.0 ABS NEUT 2.81 2.0-7.7 ABS EOS 0.02 0-0.5 ABS BASO 0.03 0-0.2 IG(META,MYELO, PRO) 1.2 ABS IMMATURE GRAN 0.05 0-0.1 Jul 04, 2023 12:57 PM [facility] KAPPA/LAMBDA LC FREE,RATIO Specimen Type: SERUM Comment: Free kappa/lambda ratio in serum of normal individuals is 0.26-1.65. Excess production of free kappa or lambda chains can alter the ratio. Monoclonal free light chains are found in the serum of patients with multiple myeloma, Waldenstrom's macroglobulinemi a, mu-heavy chain disease, primary amyloidosis, light chain deposition disease, monoclonal gammopathy of undetermined significance, and lymphoproliferat fay disorders. Measurement of free light chain concen- tration in serum is useful for diagnosis, prognosis, monitoring disease activity and following response to therapy of these disorders. Test Performed by [facility], [facility], [address] [place] [address] Robert Swift M.D., Ph.D., Director of Laboratories , [place] [id number] Ordering Provider: JANE GARCIA Report Released Date/Time: Jun 05, 2023 01:14 PM Reporting Lab: [facility] [address] Performing Lab: [address] .KAPPA LT CHAIN,FREE 25.9 H 3.3-19.4 .LAMBDA LC,FREE 56.3 H 5.7-26.3 .KAPPA/LAMBDA, FREE 0.46 0.26-1.65 Jul 04, 2023 12:57 PM [facility] ELP/IMMFIX,SERUM PANEL Specimen Type: SERUM Comment: IM FIX ADDED - Band(s) present. See Identification in report. Peak(s) too small to quantitate. Ordering Provider: JANE GARCIA Report Released Date/Time: Jun 05, 2023 01:14 PM Reporting Lab: [facility] [address] Performing Lab: [facility] [address] PROTEIN,TOTAL 6.2 6.0-8.3 .IDENTIFICATIO N 1 IgA lambda .ALBUMIN FRACTION 3.97 3.66-4.78 .ALPHA 1 FRACTION 0.30 0.14-0.38 .ALPHA 2 FRACTION 0.89 0.50-0.90 .BETA 1 FRACTION 0.42 0.33-0.55 .BETA 2 FRACTION 0.29 0.20-0.52 .GAMMA FRACTION 0.33 L 0.58-1.72 .TOTAL PROTEIN 6.2 6.0-8.3 .INTERPRETATIO N MONOCLONAL Jul 04, 2023 12:57 PM [facility] TSH W/REFLEX TO FREE T4 Specimen Type: PLASMA Comment: Automated Differential Performed Ordering Provider: JANE GARCIA Report Released Date/Time: Jun 05, 2023 01:14 PM Reporting Lab: [facility] [address] Performing Lab: [facility] [address] TSH 1.64 0.35-4.94 Jul 04, 2023 12:57 PM [facility] URIC ACID Specimen Type: PLASMA No comment entered. Ordering Provider: JANE GARCIA Report Released Date/Time: Jun 05, 2023 01:14 PM Reporting Lab: [facility] [phone] Performing Lab: [facility] [address] URIC ACID 7.3 H 3.5-7.2 Jul 04, 2023 12:57 PM [facility] PHOSPHORUS Specimen Type: PLASMA No comment entered. Ordering Provider: JANE GARCIA Report Released Date/Time: Jun 05, 2023 01:14 PM Reporting Lab: [facility] [phone] Performing Lab: [facility] [address] PHOSPHORUS 2.5 2.3-4.7 Jul 04, 2023 12:57 PM [facility] COMPREHENSIVE METABOLIC PANEL+MG Specimen Type: PLASMA Comment: Automated Differential Performed Ordering Provider: JANE GARCIA Report Released Date/Time: Jun 05, 2023 01:14 PM Reporting Lab: [facility] [address] Performing Lab: [facility] [address] CREATININE 2.0 H 0.7-1.2 UREA NITROGEN 19 8-26 GLUCOSE 133 H 70-100 SODIUM 143 136-145 POTASSIUM 4.1 3.5-5.1 CHLORIDE 109 H 98-107 CO2 21 L 22-29 CALCIUM 9.4 8.4-10.2 PROTEIN,TOTAL 6.6 6.0-8.3 ALBUMIN 4.1 3.5-5.2 BILIRUBIN, TOTAL 0.6 0.2-1.2 MAGNESIUM 2.1 1.6-2.6 ANION GAP 13 5-15 ALKALINE PHOSPHATASE 138 40-150 ALT/SGPT 31 <55 AST/SGOT 23 <34 .CREAT EGFR(CKD-EPI) 34 L >60 Jul 04, 2023 12:57 PM [facility] CBC & DIFF Specimen Type: BLOOD Comment: Automated Differential Performed Ordering Provider: JANE GARCIA Report Released Date/Time: Jun 05, 2023 01:14 PM Reporting Lab: [facility] [address] Performing Lab: [facility] [address] WBC 4.29 4.0-11.0 RBC 3.95 L 4.6-6.2 HGB 13.0 L 13.5-17.9 HCT 39.2 L 41-54 MCV 99.2 80-100 MCH 32.9 27-33 MCHC 33.2 32.0-37.5 PLT 123 L 150-400 MPV 10.0 7.4-10.4 NEUT 52.2 40.0-80.0 LYMPHS 26.3 15.0-45.0 MONO 10.3 2.0-12.0 EOSINO 8.4 H 0.0-6.0 BASO 1.9 0.0-2.0 RDW 14.6 H 11.5-14.5 ABS LYMPH 1.13 1.0-4.0 ABS MONO 0.44 0.1-1.0 ABS NEUT 2.24 2.0-7.7 ABS EOS 0.36 0-0.5 ABS BASO 0.08 0-0.2 IG(META,MYELO, PRO) 0.9 ABS IMMATURE GRAN 0.04 0-0.1 Jun 05, 2023 01:16 PM [facility] ([facility]) BNP Specimen Type: PLASMA No comment entered. Ordering Provider: ALESHIA SHELBY Report Released Date/Time: Apr 12, 2023 04:50 PM Reporting Lab: [facility] [address] Performing Lab: [facility] [address] BNP 81 <99 Jun 05, 2023 01:16 PM [facility] KAPPA/LAMBDA LC FREE,RATIO Specimen Type: SERUM Comment: Free kappa/lambda ratio in serum of normal individuals is 0.26-1.65. Excess production of free kappa or lambda chains can alter the ratio. Monoclonal free light chains are found in the serum of patients with multiple myeloma, Waldenstrom's macroglobulinemi a, mu-heavy chain disease, primary amyloidosis, light chain deposition disease, monoclonal gammopathy of undetermined significance, and lymphoproliferat fay disorders. Measurement of free light chain concen- tration in serum is useful for diagnosis, prognosis, monitoring disease activity and following response to therapy of these disorders. Test Performed by [facility], [facility], [address] [place] [address] Robert Swift M.D., Ph.D., Director of Laboratories , [place] [id number] Ordering Provider: JANE GARCIA Report Released Date/Time: May 07, 2023 03:13 PM Reporting Lab: [facility] [address] Performing Lab: [address] .KAPPA LT CHAIN,FREE 18.5 3.3-19.4 .LAMBDA LC,FREE 48.4 H 5.7-26.3 .KAPPA/LAMBDA, FREE 0.38 0.26-1.65 Jun 05, 2023 01:16 PM [facility] ELP/IMMFIX,SERUM PANEL Specimen Type: SERUM Comment: IM FIX ADDED - Band(s) present. See Identification in report. Ordering Provider: JANE GARCIA Report Released Date/Time: May 07, 2023 03:13 PM Reporting Lab: [facility] [address] Performing Lab: [facility] [address] PROTEIN,TOTAL 6.2 6.0-8.3 .IDENTIFICATIO N 1 IgA lambda .ALBUMIN FRACTION 3.89 3.66-4.78 .ALPHA 1 FRACTION 0.47 H 0.14-0.38 .ALPHA 2 FRACTION 0.89 0.50-0.90 .BETA 1 FRACTION 0.38 0.33-0.55 .BETA 2 FRACTION 0.29 0.20-0.52 .GAMMA FRACTION 0.28 L 0.58-1.72 .TOTAL PROTEIN 6.2 6.0-8.3 .INTERPRETATIO N MONOCLONAL Jun 05, 2023 01:16 PM [facility] TSH W/REFLEX TO FREE T4 Specimen Type: PLASMA No comment entered. Ordering Provider: JANE GARCIA Report Released Date/Time: May 07, 2023 03:13 PM Reporting Lab: [facility] [address] Performing Lab: [facility] [address] TSH 1.49 0.35-4.94 Jun 05, 2023 01:16 PM [facility] PHOSPHORUS Specimen Type: PLASMA No comment entered. Ordering Provider: JANE GARCIA Report Released Date/Time: May 07, 2023 03:13 PM Reporting Lab: [facility] [address] Performing Lab: [facility] [address] PHOSPHORUS 1.7 L 2.3-4.7 Jun 05, 2023 01:16 PM [facility] COMPREHENSIVE METABOLIC PANEL+MG Specimen Type: PLASMA No comment entered. Ordering Provider: JANE GARCIA Report Released Date/Time: May 07, 2023 03:13 PM Reporting Lab: [facility] [address] Performing Lab: [facility] [address] CREATININE 1.7 H 0.7-1.2 UREA NITROGEN 21 8-26 GLUCOSE 159 H 70-100 SODIUM 141 136-145 POTASSIUM 4.3 3.5-5.1 CHLORIDE 110 H 98-107 CO2 19 L 22-29 CALCIUM 9.1 8.4-10.2 PROTEIN,TOTAL 6.5 6.0-8.3 ALBUMIN 4.2 3.5-5.2 BILIRUBIN, TOTAL 1.0 0.2-1.2 MAGNESIUM 2.0 1.6-2.6 ANION GAP 12 5-15 ALKALINE PHOSPHATASE 137 40-150 ALT/SGPT 30 <55 AST/SGOT 25 <34 .CREAT EGFR(CKD-EPI) 41 L >60 Jun 05, 2023 01:16 PM [facility] CBC & DIFF Specimen Type: BLOOD Comment: Automated Differential Performed Ordering Provider: JANE GARCIA Report Released Date/Time: May 07, 2023 03:13 PM Reporting Lab: [facility] [address] Performing Lab: [facility] [address] WBC 3.46 L 4.0-11.0 RBC 4.11 L 4.6-6.2 HGB 13.6 13.5-17.9 HCT 40.3 L 41-54 MCV 98.1 80-100 MCH 33.1 H 27-33 MCHC 33.7 32.0-37.5 PLT 78 L 150-400 MPV 10.7 H 7.4-10.4 NEUT 71.4 40.0-80.0 LYMPHS 17.6 15.0-45.0 MONO 4.9 2.0-12.0 EOSINO 2.9 0.0-6.0 BASO 2.0 0.0-2.0 RDW 14.6 H 11.5-14.5 ABS LYMPH 0.61 L 1.0-4.0 ABS MONO 0.17 0.1-1.0 ABS NEUT 2.47 2.0-7.7 ABS EOS 0.10 0-0.5 ABS BASO 0.07 0-0.2 IG(META,MYELO, PRO) 1.2 ABS IMMATURE GRAN 0.04 0-0.1 IPF 3.1 0-10 Vital Signs: All taken on the encounter date This section contains inpatient and outpatient Vital Signs collected on the date of the Encounter. Date/Time Temperature Pulse Blood Pressure Respiratory Rate SP02 Pain Height Weight Body Mass Index Source Jul 04, 2023 01:35 PM 96.8 F 100 /min 100/63 mm[Hg] 18 /min 93 % 0 208.4 lb 34 [facility] Encounter Notes: All associated encounter notes This section contains the clinical notes associated to the Encounter. Date/Time Encounter Note(s) Provider Source Jul 04, 2023 06:06 PM HEMATOLOGY AND ONC OLOGY ATTENDING NOTE: LOCAL TITLE: HEME/ONC CLINIC NOTE STANDARD TITLE: HEMATOLOGY AND ONCOLOGY ATTENDING NOTE DATE OF NOTE: JUL 04, 2023@18:06 ENTRY DATE: JUL 04, 2023@18:06:39 AUTHOR: JANE GARCIA EXP COSIGNER: URGENCY: STATUS: COMPLETED HEME/ONC CLINIC NOTE Has ADDENDA Diagnosis: IgA lamda Multiple myeloma Treatment: current treatment maintenance Lenalidomide 10mg po daily for 21 days than 7 off and Dexamethasone 20mg (50% due to blood sugars/tolerance) HPI: 77yr gentleman with multiple myeloma (IgA), started on Lenalidomide/Dex/Bortezomib 05/02/18 and completed 20 cycles in 07/2019. Transplant was discussed but multiple co-morbidities influenced the decision not to pursue. His treatment was complicated by neutropenia, but overall well tolerated with very good response to treatment. Was switched to maintenance Rev/Dex in 08/2019 Reports today for follow-up TODAY No MCHUGH this month Denies vision changes, falls, gait or cognition alterations. No OC mass or mucositis to report. No nystatin swish and spit this month but has if he needs it. He does check for cervical, axillary and inguinal LAD and has none to report. SOB at baseline-no cough to report Denies vomiting/nausea. Denies changes to his baseline bowel or bladder pattern. No reports of bleeding. Bruises easily but this is not new. Denies bone or joint pain. Denies the presence of LE edema or calf pain. 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 using an OTC [place] balm he feels really helps ([place] intranet blocks the search) Denies fever, chills, night sweats, unplanned wt. loss. Continues with his ASA, lenolidimide, decadron, mag oxide, KPhos (1 packet), B12 and prn nystatin ordered through Hem/Onc without issue. HEM/ONC HISTORY (copied/updated) - Consulted for elevated IgA monoclonal protein - 03/22/18 CT scans: Impression: 1. Extra pleural masses and osseous involvement of 3 ribs with a pathologic T12 compression fracture very concerning for myeloma as described. Metastatic disease from an unknown primary and lymphoma also possible as there is moderate splenomegaly with multiple mildly enlarged celiac and retroperitoneal lymph nodes. 2. Mild lower lobe atelectasis with a 7 mm left lower lobe nodule. 3. Horseshoe kidney. 4. Other incidental findings as above. - 04/08/18 Bone marrow biopsy: DIAGNOSIS: - PLASMA CELL MYELOMA - Bone marrow cellularity of 30% with 45% plasma cells - Large paraproteinemia: IgA lambda 2.5 g/dL - Peripheral blood: Slight anemia (hg 10.5 g/dL), increased rouleaux formation - Congo red stain: - Core biopsy: negative - Fat pad : negative Cytogenetic studies [id number] from 04/08/2018) on bone marrow aspirate done at [facility] in [place], [place] reportedly show the following FISH results: FISH RESULTS: Summary of FISH results: Gain of 1q Absent FGFR3/IGH rearrangement t(4;14) Absent CCND1/IGH rearrangement t(11;14) Present Deletion 13q, loss of 13 Absent IGH/MAF rearrangement t(14;16) Absent IGH/MAFB rearrangement t(14;20) Absent TP53 Deletion (17p) Absent FISH RESULTS: nuc idris(CDKN2C,CKS1B) x2[100] nuc idris(BWWZ4u3,IGHx3~4) [87/100] nuc idris(DLDX6y8,IGHx4)(CCND1 con IGHx2)[61/100]/ (CCNDx2,IGHx3)(CCND1 con IGHx1)[16/100]/ (CCND1,IGH) x3(CCND1 con IGHx2) [12/100] nuc idris(K19G402/D13S25,13qter)x2 [100] nuc idris(IGHx3~4,MAFBx2)[88/100] nuc idris(IGHx3~4,MAFx2)[84/100] nuc idris(TP53,D17Z1)x2[100] COMMENT: FISH was performed on purified plasma cells utilizing probes to detect many of the recurring chromosomal abnormalities that have prognostic significance in patients with plasma cell myeloma. These FISH studies detected a CCND1/IGH rearrangement in the majority of the interphase nuclei. A CCND1/IGH rearrangement (11;14 translocation) is associated with standard-risk myeloma by both the International Myeloma Working Group and the [facility]. The other IGH translocation probes showed extra copies of the IGH signal, a finding consistent with the CCND1/IGH rearrangement. Notably, the plasma cells were selectively concentrated from the bone marrow aspirate for the FISH analysis. Therefore, the percentages of abnormalities obtained by FISH do not reflect the percentage of neoplastic plasma cells in the bone marrow. Correlation with the hematopathologic findings is recommended. - 04/08/18 Bone survey: Impression: 1. No radiographic evidence for lytic lesion. The pathologic compression deformity of T12 suspicious for pathologic fracture is better seen on the CT dated 03/22/2018. 2. Degenerative changes in the spine and hips. 3. The extrapleural mass in the right chest demonstrated on the CT chest dated 03/22/2018 is not visualized on this radiographic series. - 05/02/18 Cycle #1 VRD; M-spike 2.26 g/dl, IgA 2370 mg/dl - 06/05/18 Cycle #2 VRD; IgA 1750 mg/dl - 07/03/18 Cycle #3 VRD; IgA 737 mg/dl - 09/17/18 Cycle #6 VRD; IgA 568 mg/dl, lambda light chains down to 2568 - 07/2019 completed 20 cycles of VRD - 08/26/[address] with revlimid 10 mg daily for 3 weeks and 1 week off. Dex 40 mg weekly for 3 times of each cycle. -09/25/2019 increased lenalidomide to 15 mg daily for 3 weeks and 1 week off - 10/2019 to present: No monoclonal spike detected - 12/25/2019 - present: lenalidomide to 10 mg daily for 3 weeks and 1 week off -06/13/21 to present Monoclonal IgA lambda detected but Peak(s) too small to quantitate PHYSICAL EXAM ======= A&O in NAD VS Temperature: 96.8 F [36.0 C] (07/04/2023 13:35) Blood Pressure: 100/63 (07/04/2023 13:35) Pulse: 100 (07/04/2023 13:35) Respiration: 18 (07/04/2023 13:35) Pain: 0 (07/04/2023 13:35) Pulse Oximetry: 93% (07/04/2023 13:35)Weight-Last 3: Measurement DT WEIGHT 07/04/2023 13:35 208.4(94.53)[34*] 06/05/2023 12:50 211.5(95.93)[34*] 05/07/2023 14:10 215.1(97.57)[35*] ECO PERRLA, Sclera anicteric OC/Op: No evidence of mass, mucositis or thrush Neck: NO appreciable LAD or mass Chest: HRR, LS CTA Abd: soft n/t BS +x4 No appreciable edema in the extremities No visible hematoma or mass LABS Today's Labs: PROTEIN,TOTAL: 6.2 GLUCOSE: 133 H TSH: 1.64 UREA NITROGEN: 19 CREATININE: 2.0 H CREATININE EGFR (CKD-EPI): 34 L SODIUM: 143 POTASSIUM: 4.1 CHLORIDE: 109 H CO2: 21 L CALCIUM: 9.4 PO4: 2.5 MAGNESIUM: 2.1 ANION GAP: 13 URIC ACID: 7.3 H PROTEIN,TOTAL: 6.6 ALBUMIN: 4.1 BILIRUBIN,TOTAL: 0.6 ALKALINE PHOSPHATASE(37C): 138 SGOT(37C): 23 SGPT(37C): 31 WBC: 4.29 SEGS: 52.2 LYMPHS: 26.3 MONOCYTES: 10.3 EOSINO: 8.4 H BASO: 1.9 NEUTROPHIL, ABSOLUTE: 2.24 EOSINO, ABSOLUTE: 0.36 BASO, ABSOLUTE: 0.08 MONOCYTE, ALTERNATE ABS: 0.44 LYMPHS, ALTERNATE ABS: 1.13 I.9 IG,ABSOLUTE: 0.04 RBC: 3.95 L HGB: 13.0 L HCT: 39.2 L MCV: 99.2 MCH: 32.9 MCHC: 33.2 RDW: 14.6 H PLT: 123 L MPV: 10.0 Oncology imaging ======= 05/07/23 PET scan results are as follows: Impression: No new FDG avid lesions to suggest disease progression. Mild heterogenous FDG uptake along the right 6th rib, not dramatically changed compared to prior. Results called previously ASSESSMENT/PLAN: 1. 77 y/o M with IgA lambda multiple myeloma, s/p 20 cycles of RVd, last in 07/2019 with excellent response to treatment. Switched to RD maintenance in 08/2019 and has had no evidence of M-spike since 09/2019 along with stable K/L ratio. In Jun 2020 his ELP reported monoclonals but peak too small to quantify-remains as such. Therefore for his IgA lambda myeloma continue maintenance lenolidimide Patient is clinically and symptomatically stable Will continue current course when/if labs results as able to do so - Would continue lenalidomide 10 mg daily x 21 days on, 7 days off, with low dose dexamethasone (20mg po once a week) -he has no question or concerns re completing his REMS survey -Provider complete REMS survey: auth [id number] - will continue 81mg ASA Plan RTC in 4 weeks in [facility] as he was not an overall fan of [facility] and Phone clinic phased out post pandemic. 2. Renal insufficiency: creatinine variable, now at 2.0-completed creat clearance calculations with Pharmacy and okay to continue at 10mg po dose of revlimid. Will place Renal consult for thoughts at well. Does have DM type II and myeloma well managed 3. Historic hypomag- on mag oxide will continue-has supply 4. Prior reports of thrush-on decadron-has a supply of nystatin if needed 5. Hypo phosphorus- using 1 a day now and historically repleated 6. intermittently elevated uric acid-some foot pain- did not tolerate allopurinol and foot pain is managed with OTC cream trend 45 min spent in review, direct care, coordination and documentation /mindy/ JANE GARCIA APRN CLINICAL NURSE SPECIALIST Signed: 07/04/2023 18:16 07/30/2023 ADDENDUM STATUS: COMPLETED Patient cx his appt 08/07 as he will be on 7 day break from [facility] medication and should be seen this week. Discussed with Barbie Garcia who agreed with r/s. Coordinating with JESSIKA Curtis. /mindy/ DENNYS LOPEZ REGISTERED NURSE Signed: 07/30/2023 10:27 JANE GARCIA [facility] Jul 04, 2023 01:36 PM INTERNAL MEDICINE OUTPATIENT NOTE: LOCAL TITLE: MEDICINE CLINIC NURSING NOTE STANDARD TITLE: INTERNAL MEDICINE OUTPATIENT NOTE DATE OF NOTE: JUL 04, 2023@13:36 ENTRY DATE: JUL 04, 2023@13:37:05 AUTHOR: LOUISE CASTRO EXP COSIGNER: URGENCY: STATUS: COMPLETED TYPE OF VISIT: Appointment Check In Type of appointment: In-person appointment REASON FOR VISIT: scheduled visit ALLERGIES: ATORVASTATIN (Aug 17, 2015) SIMVASTATIN (Aug 17, 2015) VITAL SIGNS: Blood Pressure: 100/63 (07/04/2023 13:35) Pulse: 100 (07/04/2023 13:35) Respiration: 18 (07/04/2023 13:35) Temperature: 96.8 F [36.0 C] (07/04/2023 13:35) Weight: 208.4 lb [94.53 kg] (07/04/2023 13:35) Height: 66 in [167.6 cm] (05/07/2023 14:10) BMI: 33.7 O2 Sat: 93% (07/04/2023 13:35) Pain: 0 (07/04/2023 13:35) PAIN SCREEN: Patient is not having significant pain that they wish to discuss with their provider today. MEDICATION Over the Counter/Herbal Medications: The patient states that they take some outside medications and/or herbals. /mindy/ LOUISE CASTRO LPN LPN Signed: 07/04/2023 13:38 LOUISE CASTRO [facility]
--- OUTSIDE RECORDS SUMMARY | 2023-08-11 07:06 | XMS_ITS | Encounter Summary ---
Author Name [facility] Organization [facility] Affairs Address [address] [place] [address] Support Name Relationship Address Phone ROSA BARNETT Next of Kin [address] [place] [address] ROSA BARNETT Emergency Contact [address] [place] [address] BUCK BIRD Next of Kin [address] [place] [address] Insurance Providers: All historical and [...] Name Patient's Relationship to Policy Colbert [employer] MCR (WNR) MEDICARE ADVANTAGE [facility] (WNR) Jul 09, 2022 [id number] DARIUS TIJERINA PATIENT MEDICA MCR (WNR) MEDICARE ADVANTAGE [facility] (WNR) Jul 09, 2018 [id number] [phone] LILLIANA DARIUS PATIENT MEDICARE (WNR) MEDICARE (M) PART A Aug 09, 2011 PART A [id number] [phone] TIJERINADARIUS BELL PATIENT MEDICARE (WNR) MEDICARE (M) PART B Aug 09, 2011 PART B [id number] [phone] DARIUS TIJERINA PATIENT Selected Encounter This section includes the information on record at NM for the Encounter. Date/Time Encounter Type Encounter Description Reason Provider Source Aug 01, 2023 11:21 AM Outpatient Encounter TELEPHONE/MEDICIN E ICD-10-CM N18.9 Chronic kidney disease, unspecified BYRON GREER [facility] Encounter Template Text not used by NM Assessments - Encounter Diagnoses This section includes the primary and secondary diagnoses documented for the Encounter. Date/Time Primary/Secondary Diagnosis Diagnosis Name Provider Source Aug 01, 2023 11:21 AM PRIMARY Chronic kidney disease, unspecified BYRON GREER [facility] Aug 01, 2023 11:21 AM SECONDARY Multiple myeloma not having achieved remission DENISONBYRON [facility] Aug 01, 2023 11:21 AM SECONDARY Type 2 diabetes mellitus without complications DENISONBYRON [facility] Plan of Treatment: Future Appointments (+ 6 months) and Future Tests (+/- 45 days) The Plan of Treatment section includes future care activities for the patient from all [facility]. This section includes future appointments and future orders which are active, pending or scheduled. Future Appointments This section includes appointments that were scheduled to occur 6 months from the date of the Encounter, up to a maximum of 20 appointments. The data comes from all [place] treatment [facility]. Appointment Date/Time Appointment Type Appointme nt Facility Name Aug 29, 2023 12:00 PM AMBULATORY - NONE [facility] Aug 29, 2023 12:15 PM AMBULATORY - NONE [facility] Aug 29, 2023 01:00 PM AMBULATORY - MEDICINE [facility] Oct 17, 2023 01:30 PM AMBULATORY - MEDICINE [facility] ([facility]) Active, Pending, and Scheduled Orders This section includes a listing of several types of active, pending, and scheduled orders, including clinic medications orders, diagnostic test orders, procedure orders and consult orders; where the start date of the order is 45 days before the date of the Encounter or 45 days after the date of theEncounter. The data comes from all [facility]. Test Date/Time Test Type Test Details Facility Name Aug 07, 2023 12:00 AM Laboratory - Chemistry Order HEMOGLOBIN A1C BLOOD [facility] ([facility]) Aug 29, 2023 12:00 AM Laboratory - Chemistry Order CBC & DIFF BLOOD [facility] Aug 29, 2023 12:00 AM Laboratory - Chemistry Order COMPREHENSIVE METABOLIC PANEL+MG PLASMA [facility] Aug 29, 2023 12:00 AM Laboratory - Chemistry Order TSH W/REFLEX TO FREE T4 PLASMA [facility] Aug 29, 2023 12:00 AM Laboratory - Chemistry Order URIC ACID PLASMA ONCO [facility] Aug 29, 2023 12:00 AM Laboratory - Chemistry Order PHOSPHORUS PLASMA ONCO [facility] Aug 29, 2023 12:00 AM Laboratory - Chemistry Order ELP/IMMFIX,SERUM PANEL SERUM SP [facility] Aug 29, 2023 12:00 AM Laboratory - Chemistry Order LD,TOTAL PLASMA ONCO SP [facility] Aug 29, 2023 12:00 AM Laboratory - Chemistry Order KAPPA/LAMBDA LC FREE,RATIO SERUM SP ON[facility] Aug 29, 2023 12:00 AM Laboratory - Chemistry Order URINALYSIS URINE [facility] ([facility]) Lab Results: +/- 30 days of the encounter This section includes the Chemistry and Hematology Lab Results on record with [place] for the patient. Radiology Reports and Pathology Reports are provided separately, in subsequent sections. Lab Results This section contains the Chemistry/Hematology Results that were resulted 30 days before or 30 daysafter the date of the Encounter. Date/Time Source Result Type Result - Unit Interpretation Reference Range Comment Aug 01, 2023 10:20 AM [facility] ELP/IMMFIX,URINE RANDOM PANEL Specimen Type: URINE Comment: Urine immunotyping performed. No monoclonal proteins identified. Ordering Provider: BYRON GREER Report Released Date/Time: Jul 05, 2023 11:16 AM Reporting Lab: [facility] [phone] Performing Lab: [facility] [phone] PROTEIN,T. RANDOM UR 12.5 <14.0 .INTERPRETATIO N,UR NO MONOCLONALS DETECTED Aug 01, 2023 10:20 AM [facility] ALBUMIN/CREATININE RATIO URINE Specimen Type: URINE No comment entered. Ordering Provider: BYRON GREER Report Released Date/Time: Jul 05, 2023 11:16 AM Reporting Lab: [facility] [address] Performing Lab: [facility] [address] CREATININE,UR RANDOM 69.7 58.0-161.0 ALB/CREAT RATIO,UR 23.5 <29.9 ALBUMIN,UR 16.4 <29.9 Aug 01, 2023 10:20 AM [facility] PROTEIN/CREATININE RATIO URINE Specimen Type: URINE No comment entered. Ordering Provider: BYRON GREER Report Released Date/Time: Jul 05, 2023 11:16 AM Reporting Lab: [facility] [address] Performing Lab: [facility] [address] PROTEIN/CREATI NINE RATIO 0.18 <0.19 CREATININE,UR RANDOM 69.1 58.0-161.0 PROTEIN,T. RANDOM UR 12.5 <14.0 Aug 01, 2023 10:20 AM [facility] URINALYSIS Specimen Type: URINE No comment entered. Ordering Provider: BYRON GREER Report Released Date/Time: Jul 05, 2023 11:16 AM Reporting Lab: [facility] [address] Performing Lab: [facility] [address] URINE COLOR LIGHT-YELLOW SPECIFIC GRAVITY 1.027 1.003-1.03 [...] NEGATIVE NEGATIVE Aug 01, 2023 09:56 AM [facility] KAPPA/LAMBDA LC FREE,RATIO Specimen Type: SERUM Comment: [...] therapy of these disorders. Test Per[facility] by [facility], [employer] [facility], [address] [place], [place] Robert Swift M.D., Ph.D., Director of Laboratories , CLIA [id number] Ordering Provider: JANE SALGADO Report Released Date/Time: Jul 04, 2023 02:25 PM Reporting Lab: [facility] [address] Performing Lab: [facility] [address] [facility] .KAPPA LT CHAIN,FREE 19.2 3.3-19.4 .LAMBDA LC,FREE 42.6 H 5.7-26.3 .KAPPA/LAMBDA, FREE 0.45 0.26-1.65 Aug 01, 2023 09:56 AM [facility] ELP/IMMFIX,SERUM PANEL Specimen Type: SERUM Comment: IM FIX ADDED - Band(s) present. See Identification in report. Peak(s) too small to quantitate. Ordering Provider: JANE SALGADO Report Released Date/Time: Jul 04, 2023 02:25 PM Reporting Lab: [facility] [phone] Performing Lab: [facility] [address] PROTEIN,TOTAL 6.0 6.0-8.3 .IDENTIFICATIO N 1 IgA lambda .ALBUMIN FRACTION 3.98 3.66-4.78 .ALPHA 1 FRACTION 0.28 0.14-0.38 .ALPHA 2 FRACTION 0.74 0.50-0.90 .BETA 1 FRACTION 0.43 0.33-0.55 .BETA 2 FRACTION 0.25 0.20-0.52 .GAMMA FRACTION 0.33 L 0.58-1.72 .TOTAL PROTEIN 6.0 6.0-8.3 .INTERPRETATIO N MONOCLONAL Aug 01, 2023 09:56 AM [facility] COMPREHENSIVE METABOLIC PANEL+MG Specimen Type: PLASMA Comment: Automated Differential Performed Ordering Provider: JANE SALGADO Report Released Date/Time: Jul 04, 2023 02:25 PM Reporting Lab: [facility] [address] Performing Lab: [facility] Aug 01, 2023 09:56 AM [facility] TSH W/REFLEX TO FREE T4 Specimen Type: PLASMA No comment entered. Ordering Provider: JANE SALGADO Report Released Date/Time: Jul 04, 2023 02:25 PM Reporting Lab: [facility] [address] Performing Lab: [facility] [address] TSH 1.18 0.35-4.94 Aug 01, 2023 09:56 AM [facility] URIC ACID Specimen Type: PLASMA No comment entered. Ordering Provider: JANE SALGADO Report Released Date/Time: Jul 04, 2023 02:25 PM Reporting Lab: [facility] [address] Performing Lab: [facility] [address] URIC ACID 6.9 3.5-7.2 Aug 01, 2023 09:56 AM [facility] RENAL FUNCTION PANEL Specimen Type: PLASMA Comment: Automated Differential Performed Ordering Provider: BYRON GREER Report Released Date/Time: Jul 05, 2023 11:16 AM Reporting Lab: [facility] [address] Performing Lab: [facility] Aug 01, 2023 09:56 AM [facility] LD,TOTAL Specimen Type: PLASMA No comment entered. Ordering Provider: JANE SALGADO Report Released Date/Time: Jul 04, 2023 02:25 PM Reporting Lab: [facility] [phone] Performing Lab: [facility] [address] LD,TOTAL 109 L 125-220 Aug 01, 2023 09:56 AM [facility] CBC & DIFF Specimen Type: BLOOD Comment: Automated Differential Performed Ordering Provider: JANE SALGADO Report Released Date/Time: Jul 04, 2023 02:25 PM Reporting Lab: [facility] [phone] Performing Lab: [facility] [phone] WBC 4.33 4.0-11.0 RBC 4.10 L 4.6-6.2 [...] 0.05 0-0.1 Jul 04, 2023 12:57 PM [facility] KAPPA/LAMBDA LC FREE,RATIO Specimen Type: SERUM Comment: [...] therapy of these disorders. Test Performed by [facility], [employer] [facility], [address] [place] [address] Robert Swift M.D., Ph.D., Director of Laboratories , [place] [id number] Ordering Provider: JANE SALGADO Report Released Date/Time: Jun 05, 2023 01:14 PM Reporting Lab: [facility] [address] Performing Lab: [address] .KAPPA LT CHAIN,FREE 25.9 H 3.3-19.4 .LAMBDA LC,FREE 56.3 H 5.7-26.3 .KAPPA/LAMBDA, FREE 0.46 0.26-1.65 Jul 04, 2023 12:57 PM [facility] ELP/IMMFIX,SERUM PANEL Specimen Type: SERUM Comment: IM FIX ADDED - Band(s) present. See Identification in report. Peak(s) too small to quantitate. Ordering Provider: JANE SALGADO Report Released Date/Time: Jun 05, 2023 01:14 PM Reporting Lab: [facility] [address] Performing Lab: [facility] [address] PROTEIN,TOTAL 6.2 6.0-8.3 .IDENTIFICATIO N 1 IgA lambda .ALBUMIN FRACTION 3.97 3.66-4.78 .ALPHA 1 FRACTION 0.30 0.14-0.38 .ALPHA 2 FRACTION 0.89 0.50-0.90 .BETA 1 FRACTION 0.42 0.33-0.55 .BETA 2 FRACTION 0.29 0.20-0.52 .GAMMA FRACTION 0.33 L 0.58-1.72 .TOTAL PROTEIN 6.2 6.0-8.3 .INTERPRETATIO N MONOCLONAL Jul 04, 2023 12:57 PM [facility] URIC ACID Specimen Type: PLASMA No comment entered. Ordering Provider: JANE SALGADO Report Released Date/Time: Jun 05, 2023 01:14 PM Reporting Lab: [facility] [address] Performing Lab: [facility] [address] URIC ACID 7.3 H 3.5-7.2 Jul 04, 2023 12:57 PM [facility] TSH W/REFLEX TO FREE T4 Specimen Type: PLASMA Comment: Automated Differential Performed Ordering Provider: JANE SALGADO Report Released Date/Time: Jun 05, 2023 01:14 PM Reporting Lab: [facility] [address] Performing Lab: [facility] [address] TSH 1.64 0.35-4.94 Jul 04, 2023 12:57 PM [facility] PHOSPHORUS Specimen Type: PLASMA No comment entered. Ordering Provider: JANE SALGADO Report Released Date/Time: Jun 05, 2023 01:14 PM Reporting Lab: [facility] [address] Performing Lab: [facility] [address] PHOSPHORUS 2.5 2.3-4.7 Jul 04, 2023 12:57 PM [facility] COMPREHENSIVE METABOLIC PANEL+MG Specimen Type: PLASMA Comment: Automated Differential Performed Ordering Provider: JANE SALGADO Report Released Date/Time: Jun 05, 2023 01:14 PM Reporting Lab: [facility] [address] Performing Lab: [facility] [address] CREATININE 2.0 H 0.7-1.2 UREA NITROGEN 19 [...] L >60 Jul 04, 2023 12:57 PM [facility] CBC & DIFF Specimen Type: BLOOD Comment: Automated Differential Performed Ordering Provider: JANE SALGADO Report Released Date/Time: Jun 05, 2023 01:14 PM Reporting Lab: [facility] [address] Performing Lab: [facility] [address] WBC 4.29 4.0-11.0 RBC 3.95 L 4.6-6.2 [...] PRO) 0.9 ABS IMMATURE GRAN 0.04 0-0.1 Vital Signs: All taken on the encounter date This section contains inpatient and outpatient Vital Signs collected on the date of the Encounter. Date/Time Temperature Pulse Blood Pressure Respiratory Rate SP02 Pain Height Weight Body Mass Index Source Aug 01, 2023 10:18 AM 97.7 F 97 /min 139/75 mm[Hg] 80 /min 96 % 0 213.3 lb 34 [place] [facility] Encounter Notes: All associated encounter notes This section contains the clinical notes associated to the Encounter. Date/Time Encounter Note(s) Provider Source Aug 06, 2023 07:42 AM ADDENDUM: LOCAL TITLE: Addendum STANDARD TITLE: ADDENDUM DATE OF NOTE: AUG 06, 2023@07:42:52 ENTRY DATE: AUG 06, 2023@07:42:53 AUTHOR: ROBBIN HEARD EXP COSIGNER: URGENCY: STATUS: COMPLETED I have ordered repeat UA as recommended. Please schedule a lab adonis or add UA to 08/29/2023 [facility] lab adonis if pt prefers to do it same day. FYI to PCP. /mindy/ Robbin Heard MD Physician [facility] Signed: 08/06/2023 07:45 Receipt Acknowledged By: 08/06/2023 08:32 /mindy/ TRISH ROSS [facility] 08/06/2023 08:46 /mindy/ ALESHIA SHELBY MD PHYSICIAN --- Original Document --- 08/01/23 RENAL CLINIC NOTE: Renal Phone Note Issues: CKD3 sec to DM/HTN w prerenal state I called pt w fu. His renal fx improved back to baseline w focused hydration. He was counseled to continue to do so. He will continue his current med regimen without any additional renal recs other than for tight bs/bp/ldl control (see my consult) w avoidance of nephrotoxics and max hydration. No further renal gilbert or fu is necessary. TT 21min, chart reviewed in detail, discussed above w pt Garrison VÁSQUEZN 23 Telenephrologist /mindy/ Byron Greer DO Staff Income Tax Expert Signed: 08/01/2023 11:26 Receipt Acknowledged By: 08/01/2023 23:08 /mindy/ Robbin Heard MD Physician [facility] for ALESHIA SHELBY 08/01/2023 ADDENDUM STATUS: COMPLETED Renal Addendum Would repeat UA in 1 mo, if still has microscopic hematuria, would refer to urology for assessment. There is no evidence that the pt's myeloma is affecting his kidneys. Garrison BRITT Telenephrologist /mindy/ Byron Greer DO Staff Income Tax Expert Signed: 08/01/2023 11:28 Receipt Acknowledged By: 08/01/2023 23:26 /mindy/ Robbin Heard MD Physician [facility] for ALESHIA SHELBY ROBBIN HEARD [facility] Aug 01, 2023 11:27 AM ADDENDUM: LOCAL TITLE: Addendum STANDARD TITLE: ADDENDUM DATE OF NOTE: AUG 01, 2023@11:27:45 ENTRY DATE: AUG 01, 2023@11:27:46 AUTHOR: BYRON GREER EXP COSIGNER: URGENCY: STATUS: COMPLETED Renal Addendum Would repeat UA in 1 mo, if still has microscopic hematuria, would refer to urology for assessment. There is no evidence that the pt's myeloma is affecting his kidneys. Garrison BRITT Telenephrologist /mindy/ Byron Greer DO Staff Income Tax Expert Signed: 08/01/2023 11:28 Receipt Acknowledged By: 08/01/2023 23:26 /mindy/ Robbin Heard MD Physician [facility] for ALESHIA SHELBY --- Original Document --- 08/01/23 RENAL CLINIC NOTE: Renal Phone Note Issues: CKD3 sec to DM/HTN w prerenal state I called pt w fu. His renal fx improved back to baseline w focused hydration. He was counseled to continue to do so. He will continue his current med regimen without any additional renal recs other than for tight bs/bp/ldl control (see my consult) w avoidance of nephrotoxics and max hydration. No further renal gilbert or fu is necessary. TT 21min, chart reviewed in detail, discussed above w pt Garrison BRITT Telenephrologist /mindy/ Byron Greer DO Staff Income Tax Expert Signed: 08/01/2023 11:26 Receipt Acknowledged By: 08/01/2023 23:08 /mindy/ Robbin Heard MD Physician [facility] for BYRON LU [facility] Aug 01, 2023 11:23 AM NEPHROLOGY ATTENDI FLORENCIO NOTE: LOCAL TITLE: RENAL CLINIC NOTE STANDARD TITLE: NEPHROLOGY ATTENDING NOTE DATE OF NOTE: AUG 01, 2023@11:23 ENTRY DATE: AUG 01, 2023@11:23:35 AUTHOR: BYRON GREER EXP COSIGNER: URGENCY: STATUS: COMPLETED RENAL CLINIC NOTE Has ADDENDA Renal Phone Note Issues: CKD3 sec to DM/HTN w prerenal state I called pt w fu. His renal fx improved back to baseline w focused hydration. He was counseled to continue to do so. He will continue his current med regimen without any additional renal recs other than for tight bs/bp/ldl control (see my consult) w avoidance of nephrotoxics and max hydration. No further renal gilbert or fu is necessary. TT 21min, chart reviewed in detail, discussed above w pt Garrison VALENZUELA 23 Telenephrologist /mindy/ Byron Greer DO Staff Income Tax Expert Signed: 08/01/2023 11:26 Receipt Acknowledged By: 08/01/2023 23:08 /mindy/ Robbin Heard MD Physician [facility] for ALESHIA K HERON 08/01/2023 ADDENDUM STATUS: COMPLETED Renal Addendum Would repeat UA in 1 mo, if still has microscopic hematuria, would refer to urology for assessment. There is no evidence that the pt's myeloma is affecting his kidneys. Garrison BRITT Telenephrologist /mindy/ Byron Greer DO Staff Income Tax Expert Signed: 08/01/2023 11:28 Receipt Acknowledged By: 08/01/2023 23:26 /mindy/ Robbin Heard MD Physician [facility] for ALESHIA K HERON 08/06/2023 ADDENDUM STATUS: COMPLETED I have ordered repeat UA as recommended. Please schedule a lab adonis or add UA to 08/29/2023 [facility] lab adonis if pt prefers to do it same day. FYI to PCP. /mindy/ Robbin Heard MD Physician [facility] Signed: 08/06/2023 07:45 Receipt Acknowledged By: * AWAITING SIGNATURE * TRISH GAONA * AWAITING SIGNATURE * ALESHIA SHELBY,BYRON Waterman [facility]
--- OUTSIDE RECORDS SUMMARY | 2023-08-11 07:06 | XMS_ITS | Encounter Summary ---
Author Name [facility] of [facility] [employer] Organization [facility] Address [address] [place] [address] Support Name Relationship Address Phone ROSA BARNETT Next of Kin [address] [place] [address] ROSA BARNETT Emergency Contact [address] [place] [address] BUCK BIRD Next of Kin [address] [place] [address] Insurance Providers: All historical and [...] Name Patient's Relationship to Policy Colbert [facility] [facility] (WNR) MEDICARE ADVANTAGE [facility] Jul 09, 2022 [id number] TIJERINADARIUS PATIENT MEDICA [facility] (WN) MEDICARE ADVANTAGE [facility] ([facility]) Jul 09, 2018 [id number] [phone] DARIUS TIJERINA PATIENT MEDICARE (WNR) MEDICARE (M) PART A Aug 09, 2011 PART A [id number] [phone] DARIUS TIJERINA PATIENT MEDICARE (WNR) MEDICARE (M) PART B Aug 09, 2011 PART B [id number] [phone] DARIUS TIJERINA PATIENT Selected Encounter This section includes the information on record at [place] for the Encounter. Date/Time Encounter Type Encounter Description Reason Provider Source Aug 01, 2023 11:00 AM OFFICE O/P EST HI 40 MIN ONCOLOGY/TUMOR ICD-10-CM C90.00 Multiple myeloma not having achieved remission JANE SALGADO Marlyn Encounter Template Text not used by [place] Assessments - Encounter Diagnoses This section includes the primary and secondary diagnoses documented for the Encounter. Date/Time Primary/Secondary Diagnosis Diagnosis Name Provider Source Aug 01, 2023 11:57 AM PRIMARY Multiple myeloma not having achieved remission JANE SALGADO [facility] Aug 01, 2023 11:57 AM SECONDARY [facility] stom[facility] [place] [facility] Aug 01, 2023 11:57 AM SECONDARY Chronic kidney disease, unspecified NAOMIJANE L [facility] Aug 01, 2023 11:57 AM SECONDARY Familial hypophosphatemia [facility] Aug 01, 2023 11:57 AM SECONDARY [facility]agnes[facility] [place] [facility] Plan of Treatment: Future Appointments (+ 6 months) and Future Tests (+/- 45 days) The Plan of Treatment section includes future care activities for the patient from [facility] [place] [facility] This section includes future appointments and future orders which are active, pending or scheduled. Future Appointments This section includes appointments that were scheduled to occur 6 months from the date of the Encounter, up to a maximum of 20 appointments. The data comes from all [facility]. Appointment Date/Time Appointment Type Appointme nt Facility Name Aug 29, 2023 12:00 PM AMBULATORY - NONE [facility] Aug 29, 2023 12:15 PM AMBULATORY - NONE [facility] Aug 29, 2023 01:00 PM AMBULATORY - MEDICINE [facility] Oct 17, 2023 01:30 PM AMBULATORY - MEDICINE [facility] ([facility]) Active, Pending, and Scheduled Orders This section includes a listing of several types of active, pending, and scheduled orders, including clinic medications orders, diagnostic test orders, procedure orders and consult orders; where the start date of the order is 45 days before the date of the Encounter or 45 days after the date of theEncounter. The data comes from all [facility]. Test Date/Time Test Type Test Details Facility Name Aug 07, 2023 12:00 AM Laboratory - Chemistry Order HEMOGLOBIN A1C BLOOD [facility] [place] ([facility]) Aug 29, 2023 12:00 AM Laboratory - Chemistry Order CBC & DIFF BLOOD [facility]CO [facility] Aug 29, 2023 12:00 AM Laboratory - Chemistry Order TSH W/REFLEX TO FREE T4 PLASMA [facility] Aug 29, 2023 12:00 AM Laboratory - Chemistry Order URIC ACID PLASMA [facility] Aug 29, 2023 12:00 AM Laboratory - Chemistry Order COMPREHENSIVE METABOLIC PANEL+MG PLASMA ONCO [facility] Aug 29, 2023 12:00 AM Laboratory - Chemistry Order PHOSPHORUS PLASMA ONCO [facility] Aug 29, 2023 12:00 AM Laboratory - Chemistry Order ELP/IMMFIX,SERUM PANEL SERUM SP [facility] Aug 29, 2023 12:00 AM Laboratory - Chemistry Order KAPPA/LAMBDA LC FREE,RATIO SERUM SP ONCE [facility] Aug 29, 2023 12:00 AM Laboratory - Chemistry Order LD,TOTAL PLASMA ONCO SP [facility] Aug 29, 2023 12:00 AM Laboratory - Chemistry Order URINALYSIS URINE [facility] ([facility]) Lab Results: +/- 30 days of [...] Range Comment Aug 01, 2023 10:20 AM [facility] ELP/IMMFIX,URINE RANDOM PANEL Specimen Type: URINE Comment: Urine immunotyping performed. No monoclonal proteins identified. Ordering Provider: JYOTI GREER Report Released Date/Time: Jul 05, 2023 11:16 AM Reporting Lab: [facility] [phone] Performing Lab: [facility] [address] PROTEIN,T. RANDOM UR 12.5 <14.0 .INTERPRETATIO N,UR NO MONOCLONALS DETECTED Aug 01, 2023 10:20 AM [facility] ALBUMIN/CREATININE RATIO URINE Specimen Type: URINE No comment entered. Ordering Provider: JYOTI GREER Report Released Date/Time: Jul 05, 2023 11:16 AM Reporting Lab: [facility] [address] Performing Lab: [facility] [address] CREATININE,UR RANDOM 69.7 58.0-161.0 ALB/CREAT RATIO,UR 23.5 <29.9 ALBUMIN,UR 16.4 <29.9 Aug 01, 2023 10:20 AM [facility] PROTEIN/CREATININE RATIO URINE Specimen Type: URINE No comment entered. Ordering Provider: JYOTI GREER Report Released Date/Time: Jul 05, 2023 11:16 AM Reporting Lab: [facility] [address] Performing Lab: [facility] [address] PROTEIN/CREATI NINE RATIO 0.18 <0.19 CREATININE,UR RANDOM 69.1 58.0-161.0 PROTEIN,T. RANDOM UR 12.5 <14.0 Aug 01, 2023 10:20 AM [facility] URINALYSIS Specimen Type: URINE No comment entered. Ordering Provider: JYOTI GREER Report Released Date/Time: Jul 05, 2023 11:16 AM Reporting Lab: [facility] [address] Performing Lab: [facility] [address] URINE COLOR LIGHT-YELLOW SPECIFIC GRAVITY 1.027 1.003-1.03 [...] NEGATIVE NEGATIVE Aug 01, 2023 09:56 AM [facility] KAPPA/LAMBDA LC FREE,RATIO Specimen Type: SERUM Comment: [...] therapy of these disorders. Test Performed by [facility], [facility], [address] [place], [place] Robert Swift M.D., Ph.D., Director of Laboratories , [facility] [id number] Ordering Provider: JANE SALGADO Report Released Date/Time: Jul 04, 2023 02:25 PM Reporting Lab: [facility] [address] Performing Lab: [facility] [address] [facility] .KAPPA LT CHAIN,FREE 19.2 3.3-19.4 .LAMBDA LC,FREE 42.6 H 5.7-26.3 .KAPPA/LAMBDA, FREE 0.45 0.26-1.65 Aug 01, 2023 09:56 AM [facility] ELP/IMMFIX,SERUM PANEL Specimen Type: SERUM Comment: IM FIX ADDED - Band(s) present. See Identification in report. Peak(s) too small to quantitate. Ordering Provider: JANE SALGADO Report Released Date/Time: Jul 04, 2023 02:25 PM Reporting Lab: [facility] [address] Performing Lab: [facility] [address] PROTEIN,TOTAL 6.0 6.0-8.3 .IDENTIFICATIO N 1 IgA lambda .ALBUMIN FRACTION 3.98 3.66-4.78 .ALPHA 1 FRACTION 0.28 0.14-0.38 .ALPHA 2 FRACTION 0.74 0.50-0.90 .BETA 1 FRACTION 0.43 0.33-0.55 .BETA 2 FRACTION 0.25 0.20-0.52 .GAMMA FRACTION 0.33 L 0.58-1.72 .TOTAL PROTEIN 6.0 6.0-8.3 .INTERPRETATIO N MONOCLONAL Aug 01, 2023 09:56 AM [facility] COMPREHENSIVE METABOLIC PANEL+MG Specimen Type: PLASMA Comment: Automated Differential Performed Ordering Provider: JANE SALGADO Report Released Date/Time: Jul 04, 2023 02:25 PM Reporting Lab: [facility] [address] Performing Lab: [facility] Aug 01, 2023 09:56 AM [facility] TSH W/REFLEX TO FREE T4 Specimen Type: PLASMA No comment entered. Ordering Provider: JANE SALGADO Report Released Date/Time: Jul 04, 2023 02:25 PM Reporting Lab: [facility] [address] Performing Lab: [facility] [address] TSH 1.18 0.35-4.94 Aug 01, 2023 09:56 AM [facility] URIC ACID Specimen Type: PLASMA No comment entered. Ordering Provider: JANE SALGADO Report Released Date/Time: Jul 04, 2023 02:25 PM Reporting Lab: [facility] [address] Performing Lab: [facility] [address] URIC ACID 6.9 3.5-7.2 Aug 01, 2023 09:56 AM [facility] RENAL FUNCTION PANEL Specimen Type: PLASMA Comment: Automated Differential Performed Ordering Provider: JYOTI GREER Report Released Date/Time: Jul 05, 2023 11:16 AM Reporting Lab: [facility] [address] Performing Lab: [facility] Aug 01, 2023 09:56 AM [facility] LD,TOTAL Specimen Type: PLASMA No comment entered. Ordering Provider: JANE SALGADO Report Released Date/Time: Jul 04, 2023 02:25 PM Reporting Lab: [facility] [address] Performing Lab: [facility] [address] LD,TOTAL 109 L 125-220 Aug 01, 2023 09:56 AM [facility] CBC & DIFF Specimen Type: BLOOD Comment: Automated Differential Performed Ordering Provider: JANE SALGADO Report Released Date/Time: Jul 04, 2023 02:25 PM Reporting Lab: [facility] [address] Performing Lab: [facility] [address] WBC 4.33 4.0-11.0 RBC 4.10 L 4.6-6.2 [...] 0.05 0-0.1 Jul 04, 2023 12:57 PM [facility] KAPPA/LAMBDA LC FREE,RATIO Specimen Type: SERUM Comment: [...] therapy of these disorders. Test Performed by [facility], [facility], [address] [place] [address] Robert Swift M.D., Ph.D., Director of Laboratories , [place] [id number] Ordering Provider: JANE SALGADO Report Released Date/Time: Jun 05, 2023 01:14 PM Reporting Lab: [facility] [address] Performing Lab: [address] .KAPPA LT CHAIN,FREE 25.9 H 3.3-19.4 .LAMBDA LC,FREE 56.3 H 5.7-26.3 .KAPPA/LAMBDA, FREE 0.46 0.26-1.65 Jul 04, 2023 12:57 PM [facility] ELP/IMMFIX,SERUM PANEL Specimen Type: SERUM Comment: IM FIX ADDED - Band(s) present. See Identification in report. Peak(s) too small to quantitate. Ordering Provider: JANE SALGADO Report Released Date/Time: Jun 05, 2023 01:14 PM Reporting Lab: [facility] [address] Performing Lab: [facility] [address] PROTEIN,TOTAL 6.2 6.0-8.3 .IDENTIFICATIO N 1 IgA lambda .ALBUMIN FRACTION 3.97 3.66-4.78 .ALPHA 1 FRACTION 0.30 0.14-0.38 .ALPHA 2 FRACTION 0.89 0.50-0.90 .BETA 1 FRACTION 0.42 0.33-0.55 .BETA 2 FRACTION 0.29 0.20-0.52 .GAMMA FRACTION 0.33 L 0.58-1.72 .TOTAL PROTEIN 6.2 6.0-8.3 .INTERPRETATIO N MONOCLONAL Jul 04, 2023 12:57 PM [facility] TSH W/REFLEX TO FREE T4 Specimen Type: PLASMA Comment: Automated Differential Performed Ordering Provider: JANE SALGADO Report Released Date/Time: Jun 05, 2023 01:14 PM Reporting Lab: [facility] [address] Performing Lab: [facility] [address] TSH 1.64 0.35-4.94 Jul 04, 2023 12:57 PM [facility] URIC ACID Specimen Type: PLASMA No comment entered. Ordering Provider: JANE SALGADO Report Released Date/Time: Jun 05, 2023 01:14 PM Reporting Lab: [facility] [address] Performing Lab: [facility] [address] URIC ACID 7.3 H 3.5-7.2 Jul 04, 2023 12:57 PM [facility] PHOSPHORUS Specimen Type: PLASMA No comment entered. Ordering Provider: JANE SALGADO Report Released Date/Time: Jun 05, 2023 01:14 PM Reporting Lab: [facility] [address] Performing Lab: [facility] [address] PHOSPHORUS 2.5 2.3-4.7 Jul 04, 2023 12:57 PM [facility] COMPREHENSIVE METABOLIC PANEL+MG Specimen Type: PLASMA Comment: Automated Differential Performed Ordering Provider: JANE SALGADO Report Released Date/Time: Jun 05, 2023 01:14 PM Reporting Lab: [facility] [address] Performing Lab: [facility] [address] CREATININE 2.0 H 0.7-1.2 UREA NITROGEN 19 [...] L >60 Jul 04, 2023 12:57 PM [facility] CBC & DIFF Specimen Type: BLOOD Comment: Automated Differential Performed Ordering Provider: JANE SALGADO Report Released Date/Time: Jun 05, 2023 01:14 PM Reporting Lab: [facility] [address] Performing Lab: [facility] [address] WBC 4.29 4.0-11.0 RBC 3.95 L 4.6-6.2 [...] /min 96 % [address] [facility] Encounter Notes: All associated encounter notes This section contains the clinical notes associated to the Encounter. Date/Time Encounter Note(s) Provider Source Aug 01, 2023 11:42 AM HEMATOLOGY AND ONC OLOGY ATTENDING NOTE: LOCAL TITLE: HEME/ONC CLINIC NOTE STANDARD TITLE: HEMATOLOGY AND ONCOLOGY ATTENDING NOTE DATE OF NOTE: AUG 01, 2023@11:42 ENTRY DATE: AUG 01, 2023@11:43 AUTHOR: JANE SALGADO COSIGNER: URGENCY: STATUS: COMPLETED HEME/ONC CLINIC NOTE [...] in 08/2019 Reports today for follow-up TODAY Shares he had a bad cold about 10 days ago-coughing up yellow stuff. Went to a local clinic, got on some antibiotics for bronchitis-COPD exacerbation and is feeling much better now, especially the last 3 days. No MCHUGH this month Denies vision changes, falls, gait or cognition alterations. No OC mass or mucositis to report. No nystatin swish and spit this month but has if he needs it. He does check for cervical, axillary and inguinal LAD and has none to report. SOB back to baseline after treatment of COPD exacerbation/bronchitis. Cough persist but no longer productive Denies vomiting/nausea. Denies changes to his baseline bowel or bladder pattern. No reports of bleeding. Bruises easily but this is not new. Denies bone or joint pain. Denies the presence of LE edema or calf pain. 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 using an OTC [place]ican balm he feels really helps ([place] intranet blocks the search) Denies fever, chills, [...] - Fat pad : negative Cytogenetic studies ([id number] from 04/08/2018) on bone marrow aspirate done at [facility] in [place], [place] reportedly show the following FISH results: FISH RESULTS: Summary of FISH results: Gain of 1q Absent FGFR3/IGH rearrangement t(4;14) Absent CCND1/IGH rearrangement t(11;14) Present Deletion 13q, loss of 13 Absent IGH/MAF rearrangement t(14;16) Absent IGH/MAFB rearrangement t(14;20) Absent TP53 Deletion (17p) Absent FISH RESULTS: nuc idris(CDKN2C,CKS1B) x2[100] nuc idris(FSYS7e0,IGHx3~4) [87/100] nuc idris(CADA6e7,IGHx4)(CCND1 con IGHx2)[61/100]/ (CCNDx2,IGHx3)(CCND1 con IGHx1)[16/100]/ (CCND1,IGH) x3(CCND1 con IGHx2) [12/100] nuc idris(X30M685/D13S25,13qter)x2 [100] nuc idris(IGHx3~4,MAFBx2)[88/100] nuc idris(IGHx3~4,MAFx2)[84/100] nuc idris(TP53,D17Z1)x2[100] [...] the [employer] My[employer] and the [facility]. The other IGH translocation probes showed extra [...] EXAM ======= A&O in NAD VS Temperature: 97.7 F [36.5 C] (08/01/2023 10:18) Blood Pressure: 139/75 (08/01/2023 10:18) Pulse: 97 (08/01/2023 10:18) Respiration: 80 (08/01/2023 10:18) Pain: 0 (08/01/2023 10:18) Pulse Oximetry: 96% (08/01/2023 10:18)Weight-Last 3: Measurement DT WEIGHT 08/01/2023 10:18 213.3(96.75)[34*] 07/04/2023 13:35 208.4(94.53)[34*] 06/05/2023 12:50 211.5(95.93)[34*] ECO PERRLA, Sclera anicteric OC/OP: No evidence of mass, mucositis or thrush Neck: No appreciable LAD or mass Chest: HRR, LS CTA Abd: soft n/t BS +x4 No appreciable edema in the extremities No visible hematoma or mass LABS Today's Labs: CREATININE URINE RANDOM (02/09): 69.7 ALBUMIN/CREAT RATIO 10/12: 23.5 MICROALBUMIN,UR: 16.4 APPEARANCE: CLEAR UR COLOR: LIGHT-YELLOW SPECIFIC GRAVITY: 1.027 UR BLOOD: TRACE UR BILIRUBIN: NEGATIVE UR KETONES: NEGATIVE UR GLUCOSE: >1000 UR PROTEIN: NEGATIVE UR PH: 5.0 WBC/HPF: 1 RBC/HPF: <1 BACTERIA: NONE SEEN SQUAMOUS EPITHELIAL: NONE SEEN NITRITE, URINE: NEGATIVE LEUKOCYTE ESTERASE: NEGATIVE PROTEIN/CREAT RATIO (URINE): 0.18 CREATININE URINE RANDOM (02/09): 69.1 PROTEIN TOTAL URINE (02/09): 12.5 PROTEIN,TOTAL: 6.0 GLUCOSE: 127 H URIC ACID: 6.9 TSH: 1.18 UREA NITROGEN: 26 CREATININE: 1.6 H CREATININE EGFR (CKD-EPI): 44 L SODIUM: 143 POTASSIUM: 4.0 CHLORIDE: 110 H CO2: 21 L CALCIUM: 9.4 PO4: 3.8 MAGNESIUM: 2.1 ANION GAP: 12 PROTEIN,TOTAL: 6.3 ALBUMIN: 4.1 BILIRUBIN,TOTAL: 0.7 ALKALINE PHOSPHATASE(37C): 117 SGOT(37C): 16 SGPT(37C): 28 LD,TOTAL(37C P-L): 109 L WBC: 4.33 SEGS: 64.8 LYMPHS: 20.3 MONOCYTES: 12.5 H EOSINO: 0.5 BASO: 0.7 NEUTROPHIL, ABSOLUTE: 2.81 EOSINO, ABSOLUTE: 0.02 BASO, ABSOLUTE: 0.03 MONOCYTE, ALTERNATE ABS: 0.54 LYMPHS, ALTERNATE ABS: 0.88 L I.2 IG,ABSOLUTE: 0.05 RBC: 4.10 L HGB: 13.1 L HCT: 39.2 L MCV: 95.6 MCH: 32.0 MCHC: 33.4 RDW: 14.6 H PLT: 104 L MPV: 10.2 Oncology imaging ======= 05/07/23 PET scan results are as follows: Impression: No new FDG avid lesions to suggest disease progression. Mild heterogenous FDG uptake along the right 6th rib, not dramatically changed compared to prior. Results discussed previously ASSESSMENT/PLAN: 1. 77 y/o M with IgA lambda multiple myeloma, s/p 20 cycles of RVd, last in 07/2019 with excellent response to treatment. Switched to RD maintenance in 08/2019 and has had no evidence of M-spike since 09/2019 along with stable K/L ratio. In Jun 2022 his ELP reported monoclonals but peak too small to quantify-remains as such. Therefore for his IgA lambda myeloma continue maintenance lenolidimide Patient is clinically and symptomatically stable Will continue current course - Would continue lenalidomide 10 mg daily x 21 days on, 7 days off, with low dose dexamethasone (20mg po once a week) -he has no question or concerns re completing his REMS survey -Provider complete REMS survey: auth [id number] - [place] will continue 81mg ASA Plan RTC in 4 weeks in [facility] as he was not an overall fan of [facility], Phone clinic phased out post pandemic and [facility] and [facility] equidistant he prefers [facility] as then he can go see [place]. 2. Renal insufficiency: creatinine variable-was up to 2.0, 1.6 today. Placed Renal consult as does have DM type II and myeloma well managed and Renal most suspecting of CKD in the setting of DM, per there notations low suspicion for myeloma affect/involvement. 3. 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 Prior reports of thrush-on decadron-has a supply of nystatin if needed 5. Hypo phosphorus- using 1KPhos packet a day now and repleted 6. intermittently elevated uric acid-some foot pain- did not tolerate allopurinol and foot pain is managed with OTC cream trend 45 min spent in review, direct care, coordination and documentation /es/ JANE SALGADO APRN CLINICAL NURSE SPECIALIST Signed: 08/01/2023 11:57 08/02/2023 ADDENDUM STATUS: COMPLETED Collection time: Aug 01, 2023@09:56 Test Name Result Units Range --------- ------ ----- ----- .INTERPRETATION MONOCLONAL .IDENTIFICATION 1 IgA lambda .ALBUMIN FRACTION 3.98 g/dL 3.66 - 4.78 .ALPHA 1 FRACTION 0.28 g/dL 0.14 - 0.38 .ALPHA 2 FRACTION 0.74 g/dL 0.50 - 0.90 .BETA 1 FRACTION 0.43 g/dL 0.33 - 0.55 .BETA 2 FRACTION 0.25 g/dL 0.20 - 0.52 .GAMMA FRACTION 0.33 L g/dL 0.58 - 1.72 .TOTAL PROTEIN 6.0 g/dL 6.0 - 8.3 Comments: IM FIX ADDED - Band(s) present. See Identification in report. Peak(s) too small to quantitate. No change to current plan of care /es/ JANE SALGADO APRN CLINICAL NURSE SPECIALIST Signed: 08/02/2023 17:25 08/06/2023 ADDENDUM STATUS: COMPLETED Free light chain ratio remains within nornal limis. Continue current plan of care /es/ JANE SALGADO APRN CLINICAL NURSE SPECIALIST Signed: 08/06/2023 09:15 JANE SALGADO [facility] Aug 01, 2023 10:18 AM INTERNAL MEDICINE OUTPATIENT NOTE: LOCAL TITLE: MEDICINE CLINIC NURSING NOTE STANDARD TITLE: INTERNAL MEDICINE OUTPATIENT NOTE DATE OF NOTE: AUG 01, 2023@10:18 ENTRY DATE: AUG 01, 2023@10:18:52 AUTHOR: CHAY ROSE COSIGNER: URGENCY: STATUS: COMPLETED TYPE OF VISIT: Appointment Check In Type of appointment: In-person appointment REASON FOR VISIT: Scheduled clinic visit ALLERGIES: ATORVASTATIN (Aug 17, 2015) SIMVASTATIN (Aug 17, 2015) VITAL SIGNS: Blood Pressure: 139/75 (08/01/2023 10:18) Pulse: 97 (08/01/2023 10:18) Respiration: 80 (08/01/2023 10:18) Temperature: 97.7 F [36.5 C] (08/01/2023 10:18) Weight: 213.3 lb [96.75 kg] (08/01/2023 10:18) Height: 66 in [167.6 cm] (05/07/2023 14:10) BMI: 34.5 O2 Sat: 96% (08/01/2023 10:18) Pain: 0 (08/01/2023 10:18) PAIN SCREEN: Patient is not having significant pain that they wish to discuss with their provider today. MEDICATION Over the Counter/Herbal Medications: The patient states that they take some outside medications and/or herbals. /mindy/ CHAY ROSE LPN Licensed Practical Nurse Signed: 08/01/2023 10:19 CHAY ROSE [facility]
--- OUTSIDE RECORDS SUMMARY | 2023-08-11 07:06 | XMS_ITS | Clinical Summary ---
Author Name Unknown Organization [employer] Address [place], [place] [address] Care Team Providers Care Mainframe Systems Engineer Name Role Phone [place] Primary Care Provider [phone] Allergies No known active allergies Medications Medication [...] Tetanus booster 05/08/2031 05/08/2021 Tdap Completed 05/08/2021 Advance Directives Latest Code Status on File Code Status Date Activated Date Inactivated Comments Full Code 01/28/2015 9:26 AM 01/28/2015 3:59 PM Care Teams Mainframe Systems Engineer Relationship Specialty Start Date End Date [place] [address] [employer] [place] [id number] PCP - General 01/15/20
--- OUTSIDE RECORDS SUMMARY | 2023-08-11 07:06 | XMS_ITS | Encounter Summary ---
Author Name Department of [facility] Organization Department of [facility] Address [address] [place] [id number] Support Name Relationship Address Phone ROSA BARNETT Next of Kin [address] [place] [address] ROSA BARNETT Emergency Contact [address] [place] [address] BUCK BIRD Next of Kin [address] [place] [address] Insurance Providers: All historical and [...] Policy Colbert [employer] MCR (WNR) MEDICARE ADVANTAGE [facility] ([facility]) Jul 09, 2022 [id number] [phone] DARIUS TIJERINA PATIENT MEDICA [facility] (WNR) MEDICARE ADVANTAGE [facility] ([facility]) Jul 09, 2018 [id number] [phone] MUNIRA TIJERINAALD PATIENT MEDICARE (WNR) MEDICARE (M) PART A Aug 09, 2011 PART A [id number] [phone] LILLIANA DARIUS PATIENT MEDICARE (WNR) MEDICARE (M) PART B Aug 09, 2011 PART B [id number] [phone] DARIUS TIJERINA PATIENT Selected Encounter This section includes the information on record at [facility] for the Encounter. Date/Time Encounter Type Encounter Description Reason Provider Source Aug 01, 2023 12:26 PM Outpatient Encounter CHEMOTHERAPY PROC. UNIT-MED. JANE SALGADO Encounter Template Text not used by [facility] Plan of Treatment: Future Appointments (+ 6 months) and Future Tests (+/- 45 days) The Plan of Treatment section includes future care activities for the patient from all [facility]. This section includes future appointments and future orders which are active, pending or scheduled. Future Appointments This section includes appointments that were scheduled to occur 6 months from the date of the Encounter, up to a maximum of 20 appointments. The data comes from all [facility]. Appointment Date/Time Appointment Type Appointme nt Facility Name Aug 29, 2023 12:00 PM [facility] [place] [facility] Aug 29, 2023 12:15 PM [facility] Aug 29, 2023 01:00 PM AMBULATORY - MEDICINE [facility] Oct 17, 2023 01:30 PM AMBULATORY - MEDICINE [facility] ([facility]) Active, Pending, and Scheduled Orders This section includes a listing of several types of active, pending, and scheduled orders, including clinic medications orders, diagnostic test orders, procedure orders and consult orders; where the start date of the order is 45 days before the date of the Encounter or 45 days after the date of theEncounter. The data comes from all [facility]. Test Date/Time Test Type Test Details Facility Name Aug 07, 2023 12:00 AM Laboratory - Chemistry Order HEMOGLOBIN A1C BLOOD [facility] SP [facility] ([facility]) Aug 29, 2023 12:00 AM Laboratory - Chemistry Order CBC & DIFF BLOOD ONCO [facility]CE [facility] Aug 29, 2023 12:00 AM Laboratory - Chemistry Order COMPREHENSIVE METABOLIC PANEL+MG PLASMA [facility] Aug 29, 2023 12:00 AM Laboratory - Chemistry Order TSH W/REFLEX TO FREE T4 PLASMA [facility] Aug 29, 2023 12:00 AM Laboratory - Chemistry Order URIC ACID PLASMA [facility] Aug 29, 2023 12:00 AM Laboratory - Chemistry Order PHOSPHORUS PLASMA [facility] Aug 29, 2023 12:00 AM Laboratory - Chemistry Order KAPPA/LAMBDA LC FREE,RATIO SERUM [facility] Aug 29, 2023 12:00 AM Laboratory - Chemistry Order LD,TOTAL PLASMA [facility] Aug 29, 2023 12:00 AM Laboratory - Chemistry Order ELP/IMMFIX,SERUM PANEL SERUM [facility] Aug 29, 2023 12:00 AM Laboratory - Chemistry Order URINALYSIS URINE OC SP [facility] Lab Results: +/- 30 days of the encounter This section includes the Chemistry and Hematology Lab Results on record with [facility] for the patient. Radiology Reports and Pathology Reports are provided separately, in subsequent sections. Lab Results This section contains the Chemistry/Hematology Results that were resulted 30 days before or 30 daysafter the date of the Encounter. Date/Time Source Result Type Result - Unit Interpretation Reference Range Comment Aug 01, 2023 10:[address] [facility] ELP/IMMFIX,URINE RANDOM PANEL Specimen Type: URINE Comment: Urine immunotyping performed. No monoclonal proteins identified. Ordering Provider: JYOTI GREER Report Released Date/Time: Jul 05, 2023 11:16 AM Reporting Lab: [facility] [place] [phone] Performing Lab: [facility] [place] [address] PROTEIN,T. RANDOM UR 12.5 <14.0 .INTERPRETATIO N,UR NO MONOCLONALS DETECTED Aug 01, 2023 10:[address] [facility] ALBUMIN/CREATININE RATIO URINE Specimen Type: URINE No comment entered. Ordering Provider: JYOTI GREER Report Released Date/Time: Jul 05, 2023 11:16 AM Reporting Lab: [facility] [place] [phone] Performing Lab: [facility] [place] [phone] CREATININE,UR RANDOM 69.7 58.0-161.0 ALB/CREAT RATIO,UR 23.5 <29.9 ALBUMIN,UR 16.4 <29.9 Aug 01, 2023 10:[address] [facility] PROTEIN/CREATININE RATIO URINE Specimen Type: URINE No comment entered. Ordering Provider: JYOTI GREER Report Released Date/Time: Jul 05, 2023 11:16 AM Reporting Lab: [facility] [place] [phone] Performing Lab: [facility] [place] [address] PROTEIN/CREATI NINE RATIO 0.18 <0.19 CREATININE,UR RANDOM 69.1 58.0-161.0 PROTEIN,T. RANDOM UR 12.5 <14.0 Aug 01, 2023 10:[address] [facility] URINALYSIS Specimen Type: URINE No comment entered. Ordering Provider: JYOTI GREER Report Released Date/Time: Jul 05, 2023 11:16 AM Reporting Lab: [facility] [place] [phone] Performing Lab: [facility] [place] [address] URINE COLOR LIGHT-YELLOW SPECIFIC GRAVITY 1.027 1.003-1.03 [...] NEGATIVE NEGATIVE Aug 01, 2023 09:[address] [facility] KAPPA/LAMBDA LC FREE,RATIO Specimen Type: SERUM [...] therapy of these disorders. Test Performed by [facility], [employer] Diagn[facility], [address] [place] [address] Robert Swift M.D., Ph.D., Director of Laboratories , [facility] [id number] Ordering Provider: JANE SALGADO Report Released Date/Time: Jul 04, 2023 02:25 PM Reporting Lab: [facility] [place] [phone] Performing Lab: [address] .KAPPA LT CHAIN,FREE 19.2 3.3-19.4 .LAMBDA LC,FREE 42.6 H 5.7-26.3 .KAPPA/LAMBDA, FREE 0.45 0.26-1.65 Aug 01, 2023 09:[address] [facility] ELP/IMMFIX,SERUM PANEL Specimen Type: SERUM Comment: IM FIX ADDED - Band(s) present. See Identification in report. Peak(s) too small to quantitate. Ordering Provider: JANE SALGADO Report Released Date/Time: Jul 04, 2023 02:25 PM Reporting Lab: [facility] [place] [phone] Performing Lab: [facility] [place] [address] PROTEIN,TOTAL 6.0 6.0-8.3 .IDENTIFICATIO N 1 IgA lambda .ALBUMIN FRACTION 3.98 3.66-4.78 .ALPHA 1 FRACTION 0.28 0.14-0.38 .ALPHA 2 FRACTION 0.74 0.50-0.90 .BETA 1 FRACTION 0.43 0.33-0.55 .BETA 2 FRACTION 0.25 0.20-0.52 .GAMMA FRACTION 0.33 L 0.58-1.72 .TOTAL PROTEIN 6.0 6.0-8.3 .INTERPRETATIO N MONOCLONAL Aug 01, 2023 09:[address] [facility] COMPREHENSIVE METABOLIC PANEL+MG Specimen Type: PLASMA Comment: Automated Differential Performed Ordering Provider: JANE SALGADO Report Released Date/Time: Jul 04, 2023 02:25 PM Reporting Lab: [facility] [place] [phone] Performing Lab: [facility] Aug 01, 2023 09:[address] [facility] TSH W/REFLEX TO FREE T4 Specimen Type: PLASMA No comment entered. Ordering Provider: JANE SALGADO Report Released Date/Time: Jul 04, 2023 02:25 PM Reporting Lab: [facility] [place] [phone] Performing Lab: [facility] [place] [address] TSH 1.18 0.35-4.94 Aug 01, 2023 09:[address] [facility] URIC ACID Specimen Type: PLASMA No comment entered. Ordering Provider: JANE SALGADO Report Released Date/Time: Jul 04, 2023 02:25 PM Reporting Lab: [facility] [place] [phone] Performing Lab: [facility] [place] [address] URIC ACID 6.9 3.5-7.2 Aug 01, 2023 09:[address] [facility] RENAL FUNCTION PANEL Specimen Type: PLASMA Comment: Automated Differential Performed Ordering Provider: JYOTI GREER Report Released Date/Time: Jul 05, 2023 11:16 AM Reporting Lab: [facility] [place] [phone] Performing Lab: [facility] Aug 01, 2023 09:[address] [facility] LD,TOTAL Specimen Type: PLASMA No comment entered. Ordering Provider: JANE SALGADO Report Released Date/Time: Jul 04, 2023 02:25 PM Reporting Lab: [facility] [place] [phone] Performing Lab: [facility] [place] [phone] LD,TOTAL 109 L 125-220 Aug 01, 2023 09:[address] [facility] CBC & DIFF Specimen Type: BLOOD Comment: Automated Differential Performed Ordering Provider: JANE SALGADO Report Released Date/Time: Jul 04, 2023 02:25 PM Reporting Lab: [facility] [place] [address] Performing Lab: [facility] [place] [address] WBC 4.33 4.0-11.0 RBC 4.10 L 4.6-6.2 [...] 0.05 0-0.1 Jul 04, 2023 12:[address] [facility] KAPPA/LAMBDA LC FREE,RATIO Specimen Type: SERUM [...] therapy of these disorders. Test Performed by [facility], [employer] [facility], [address] [place] [address] Robert Swift M.D., Ph.D., Director of Laboratories , [facility]IA [id number] Ordering Provider: JANE SALGADO Report Released Date/Time: Jun 05, 2023 01:14 PM Reporting Lab: [facility] [place] [phone] Performing Lab: [address] .KAPPA LT CHAIN,FREE 25.9 H 3.3-19.4 .LAMBDA LC,FREE 56.3 H 5.7-26.3 .KAPPA/LAMBDA, FREE 0.46 0.26-1.65 Jul 04, 2023 12:[address] [facility] ELP/IMMFIX,SERUM PANEL Specimen Type: SERUM Comment: IM FIX ADDED - Band(s) present. See Identification in report. Peak(s) too small to quantitate. Ordering Provider: JANE SALGADO Report Released Date/Time: Jun 05, 2023 01:14 PM Reporting Lab: [facility] [place] [address] Performing Lab: [facility] [place] [address] PROTEIN,TOTAL 6.2 6.0-8.3 .IDENTIFICATIO N 1 IgA lambda .ALBUMIN FRACTION 3.97 3.66-4.78 .ALPHA 1 FRACTION 0.30 0.14-0.38 .ALPHA 2 FRACTION 0.89 0.50-0.90 .BETA 1 FRACTION 0.42 0.33-0.55 .BETA 2 FRACTION 0.29 0.20-0.52 .GAMMA FRACTION 0.33 L 0.58-1.72 .TOTAL PROTEIN 6.2 6.0-8.3 .INTERPRETATIO N MONOCLONAL Jul 04, 2023 12:[address] [facility] TSH W/REFLEX TO FREE T4 Specimen Type: PLASMA Comment: Automated Differential Performed Ordering Provider: JANE SALGADO Report Released Date/Time: Jun 05, 2023 01:14 PM Reporting Lab: [facility] [place] [phone] Performing Lab: [facility] [place] [address] TSH 1.64 0.35-4.94 Jul 04, 2023 12:[address] [facility] URIC ACID Specimen Type: PLASMA No comment entered. Ordering Provider: JANE SALGADO Report Released Date/Time: Jun 05, 2023 01:14 PM Reporting Lab: [facility] [place] [phone] Performing Lab: [facility] [place] [address] URIC ACID 7.3 H 3.5-7.2 Jul 04, 2023 12:[address] [facility] PHOSPHORUS Specimen Type: PLASMA No comment entered. Ordering Provider: JANE SALGADO Report Released Date/Time: Jun 05, 2023 01:14 PM Reporting Lab: [facility] [place] [phone] Performing Lab: [facility] [place] [address] PHOSPHORUS 2.5 2.3-4.7 Jul 04, 2023 12:[address] [facility] COMPREHENSIVE METABOLIC PANEL+MG Specimen Type: PLASMA Comment: Automated Differential Performed Ordering Provider: JANE SALGADO Report Released Date/Time: Jun 05, 2023 01:14 PM Reporting Lab: [facility] [place] [phone] Performing Lab: [facility] [place] [address] CREATININE 2.0 H 0.7-1.2 UREA NITROGEN 19 [...] L >60 Jul 04, 2023 12:[address] [facility] CBC & DIFF Specimen Type: BLOOD Comment: Automated Differential Performed Ordering Provider: JANE SALGADO Report Released Date/Time: Jun 05, 2023 01:14 PM Reporting Lab: [facility] [place] [phone] Performing Lab: [facility] [place] [address] WBC 4.29 4.0-11.0 RBC 3.95 L 4.6-6.2 [...] 96 % 0 213.3 lb 34 [place] [facility]
[2023-08-11 07:20] VITALS: BP 139/85; PULSE 109; RESP 40; O2SAT 95
[2023-08-11 07:28] LABS: Basophils Percent Auto 1.2 % (0.0-3.0); Eosinophils Percent Auto 1.2 % (0.0-7.0); Hematocrit 38.7 % (37.0-53.0); Hemoglobin* 12.7 gm/dL (13.5-17.5); Immature Granulocytes Pct Auto 1.7 %; Lymphocytes Percent Auto 12.2 % (20-44); Mean Corpuscular HGB Conc 33 gm/dL (32-36); Mean Corpuscular Hemoglobin 32 pg (26-34); Mean Corpuscular Volume 98 fL (80-100); Monocytes Percent Auto 12.2 % (0.0-11.0); Neutrophils Percent Auto 71.5 % (42.0-72.0); Platelet Count* 105 K/uL (140-440); RDW Coefficient of Variation % 14.6 % (11.5-15.5); Red Blood Count 3.96 m/uL (4.30-5.90); White Blood Count* 3.45 K/uL (4.50-11.00)
--- NOTE | 2023-08-11 07:30 | ED_ITS ---
HPI - SOB/Dyspnea General Chief Complaint: Shortness of Breath/Dyspnea <Alcon Newell MD - Last Filed: 08/13/23 07:16> Stated Complaint: COPD, trouble breathing <Alcon Newell MD - Last Filed: 08/13/23 07:16> Time Seen by Provider: 08/11/23 06:53 <Alcon Newell MD - Last Filed: 08/13/23 07:16> History of Present Illness HPI Narrative: Patient is a 77-year-old gentleman with COPD who is no longer smoking presents with 24 hours of shortness of breath. He has had no fevers no chills no night sweats no nausea no vomiting. He has had no chest pain no orthopnea no PND. Patient said he had a miserable night and comes in for further evaluation. Patient had been breathing just fine. He does not have any signs of acute infection and otherwise feels well. <Alcon Newell MD - Last Filed: 08/13/23 07:16> Related Data Home Medications: Home Medications Medication Instructions Recorded Confirmed albuterol sulfate 90 mcg/actuation 2 puff inhalation Q4-6H PRN 07/20/23 08/11/23 aerosol inhaler ascorbic acid (vitamin C) 500 mg 500 mg PO DAILY 07/20/23 08/11/23 capsule aspirin 81 mg tablet,delayed 81 mg PO QDAY 07/20/23 08/11/23 release budesonide-formoterol HFA 160 2 puff inhalation BID 07/20/23 08/11/23 mcg-4.5 mcg/actuation aerosol inhaler cholecalciferol (vitamin D3) 25 25 mcg PO QDAY 07/20/23 08/11/23 mcg (1,000 unit) capsule cyclobenzaprine 10 mg tablet 10 mg PO TID 07/20/23 08/11/23 dexamethasone 4 mg tablet 4 mg PO QDAY 07/20/23 08/11/23 diclofenac sodium 1 % topical gel 4 g topical QID 07/20/23 08/11/23 (Aleve (diclofenac)) lenalidomide 10 mg capsule 10 mg PO QDAY 07/20/23 08/11/23 loratadine 10 mg tablet (Allergy 10 mg PO QDAY 07/20/23 08/11/23 Relief (loratadine)) metformin 1,000 mg tablet 1,000 mg PO BID 07/20/23 08/11/23 omega 1-oim-wvh-fish oil 1,000 mg 1 cap PO QDAY 07/20/23 08/11/23 (120 mg-180 mg) capsule (Fish Oil) prochlorperazine maleate 10 mg 10 mg PO Q6H PRN 07/20/23 08/11/23 tablet tiotropium bromide 18 mcg capsule 1 cap inhalation QDAY 07/20/23 08/11/23 with inhalation device Previous Rx's Medication Instructions Recorded albuterol sulfate 90 mcg/actuation 2 inh inhalation Q4H PRN shortness 08/11/23 aerosol inhaler of breath or wheezing #8.5 grams oseltamivir 75 mg capsule (Tamiflu) 75 mg PO BID 5 days #10 caps 08/11/23 prednisone 20 mg tablet 40 mg (2 x 20 mg) PO DAILY 5 days 08/11/23 #10 tabs <Alcon Newell MD - Last Filed: 08/13/23 07:16> Allergies/Adverse Reactions: Allergies Allergy/AdvReac Type Severity Reaction Status Date / Time No Known Drug Allergies Allergy Verified 08/11/23 07:00 <Alcon Newell MD - Last Filed: 08/13/23 07:16> Review of Systems Status of ROS: Reports: 10 or more systems reviewed and unremarkable except as noted in History and below <Alcon Newell MD - Last Filed: 08/13/23 07:16> [facility] Family History: Family History Son Myocardial infarction <Alcon Newell MD - Last Filed: 08/13/23 07:16> Social History: Social History Non-prescribed substance use: denies use <Alcon Newell MD - Last Filed: 08/13/23 07:16> Exam Narrative: Exam Narrative: EXAM GENERAL: Patient appears comfortable and well. EYES: No scleral icterus. ENT: Tympanic membranes and oropharynx normal. THYROID: no thyroid nodules or thyromegaly. LYMPH: No supraclavicular or cervical lymphadenopathy. SKIN: Visible skin seen during exam normal or with benign process only. EXT: No dependent lower extremity pedal edema. HEART: Regular rate and rhythm with no murmurs, rubs, or gallops. LUNGS: Decreased breath sounds with expiratory wheezes bilaterally. ABD: Soft, non tender, non distended. PSYCH: Good eye contact, speech is not pressured. <Alcon Newell MD - Last Filed: 08/13/23 07:16> Const: Vital Signs, click to edit/add: Vital Signs - 24 hr 08/11/23 06:57 08/11/23 07:20 08/11/23 08:00 Temperature 98.3 F Pulse Rate [Right Pulse Oximeter] 113 H 109 H 104 H Respiratory Rate 24 40 H 21 Blood Pressure [Ri ght Upper Arm] 186/88 H 139/85 141/76 H Pulse Oximetry 96 95 96 Oxygen Delivery Me thod Room Air Room Air Room Air 08/11/23 08:05 08/11/23 08:30 08/11/23 09:00 Temperature Pulse Rate [Right Pulse Oximeter] 105 H 107 H 118 H Respiratory Rate 31 H 26 H Blood Pressure [Ri ght Upper Arm] 141/76 H 153/77 H Pulse Oximetry 95 96 97 Oxygen Delivery Me thod Room Air Room Air Room Air <Alcon Newell MD - Last Filed: 08/13/23 07:16> Vital Signs, click to edit/add: Vital Signs - 24 hr 08/11/23 06:57 08/11/23 07:20 08/11/23 08:00 Temperature 98.3 F Pulse Rate [Right Pulse Oximeter] 113 H 109 H 104 H Respiratory Rate 24 40 H 21 Blood Pressure [Ri ght Upper Arm] 186/88 H 139/85 141/76 H Pulse Oximetry 96 95 96 Oxygen Delivery Me thod Room Air Room Air Room Air 08/11/23 08:05 08/11/23 08:30 08/11/23 09:00 Temperature Pulse Rate [Right Pulse Oximeter] 105 H 107 H 118 H Respiratory Rate 31 H 26 H Blood Pressure [Ri ght Upper Arm] 141/76 H 153/77 H Pulse Oximetry 95 96 97 Oxygen Delivery Me thod Room Air Room Air Room Air <Estuardo Piña MD - Last Filed: 08/11/23 09:22> Course Course ED Course: Patient seen and examined. EKG upon my review shows sinus tachycardia no other acute abnormalities. CBC basic metabolic panel troponin D-dimer chest x- ray pending. <Alcon Newell MD - Last Filed: 08/13/23 07:16> Reevaluation(s) Reevaluation #1: Dr. Piña assumed care at 8:00 a.m.-shift change, from Dr. Newell. Report is this is a 77-year-old male with a history of COPD (former smoker quit 15 years ago), presenting to the ER today with productive cough, shortness of breath,. Symptoms began about 2 days ago in or worse overnight tonight. He has had a similar illness a month or 2 ago that was treated with a course of antibiotics through his primary in the [facility]. On presentation his lungs were wheezy. He received a DuoNeb. Oxygen sats are 95 on room air while resting in bed but dropped to 86-88 with ambulation. Also with ambulation he becomes more tachycardic with heart rate up to about 140. He says he is feeling a bit better after his neb. Chest x-ray is clear by Dr. Newell interpretation. Positive for influenza B. awaiting troponin. Dr. Piña will recheck after labs are back. If better after neb, may be able to discharge home. If still wheezy may require admission. Suspects that this is influenza B triggering COPD exacerbation. Recheck- Labs: WBC 3.4, hemoglobin 12.7, platelet count 105 (no old labs for comparison) D-dimer normal at 0.49 Sodium 138, potassium 2.8, chloride 109, bicarb 15, BUN 23, creatinine 1.5. Troponin less than 0.01. COVID negative, RSV negative, influenza a negative. Influenza B positive Chest x-ray IMPRESSION: Stable chest without acute process. I recheck the patient a 20. He was feeling better while resting in bed. Still had a resting tachycardia with a heart rate of about 105-110, sinus on the monitor. Oxygen 95% on room air and respirations unlabored. He is alert and oriented. He is a good historian. He recalls that he did use his nebulizer at about 2:00 a.m. this morning which helped ?a little. ?. He has never been hospitalized for COPD before. He would prefer to go home, if possible. He recalls that when he had a similar productive cough about a month ago, his primary care provider put him on antibiotics and wonders if he needs antibiotics today. On repeat exam he is tachycardic but has no murmur. Lungs: Bilateral wheezing. Overall good aeration. Respirations unlabored. No distress, tachypnea, retractions. Will order another albuterol neb and then retest ambulation with oximetry. Also oral prednisone here in the ER. Will see how his breathing goes with exercise. If improving and able to maintain sats while walking, may be able to discharge home. If he still has persistent tachycardia or persistent hypoxia will need additional treatment with possible additional nebs or possible IV fluids. Symptoms began on , a little bit over 48 hours ago, however given his positive influenza status and high risk state, we would put him on Tamiflu. <Estuardo Piña MD - Last Filed: 08/11/23 09:22> Reevaluation #2: Recheck-after 2nd neb patient's lung sounds are much improved. Minimal ongoing wheezing. She he passed an ambulation trial. Still tachycardic with heart rate up into the 120s with ambulation. Also got tachypneic with ambulation but says he ?always breathes like that. Oxygen sats stayed in the 90s with ambulation. Discussed with the patient and his son. He is positive for influenza B. No evidence for pneumonia on his chest x-ray. Would treat with a course of Tamiflu, even though he is outside the 48 hours from onset. He is having a COPD exacerbation. Would need additional bronchodilators. Has an adequate supply of nebulizer med at home but needs a refill for inhaler. Would also put him on a 5 day dose of prednisone. He is tachycardic. Labs show low bicarb and I suspect that he is dehydrated. He Rue does admit that he has not been drinking much water for since yesterday because he has not been feeling well. Discussed possible admission for IV fluids and pulmonary supportive care but he really wants to go home. He says he is confident he can drink more fluids today to stay hydrated. Although he is dehydrated, creatinine is 1.5. No life-threatening renal failure, hyperkalemia, CHF. Other labs do not show signs of ACS, PE. No evidence for CHF on his chest x- ray. Overall I think the patient is marginal for discharge. He remains tachypneic and tachycardic but is not hypoxic. Overall he says he is feeling fine. He is clearly alert, robust, mentating normally. Nonetheless I have concern given persistent tachycardia and elevated respiratory rate. He really wants to discharge home and does not want to be admitted. Discussed with the patient and his son how our plan will go for treatment at home and reviewed precautions for return to the ER. Discussed with them that he is right on the borderline between hospitalization and discharge. If he gets worse in any way, he should return to the ER immediately. Discussed indications for calling 911. He and his son are comfortable for discharge. Clinical impression 1. Influenza B 2. COPD exacerbation 3. Dehydration <Estuardo Piña MD - Last Filed: 08/11/23 09:22> Vital Signs Vital signs: Initial Vital Signs Temperature 98.3 F 08/11/23 06:57 Temperature Source Temporal Artery Scan 08/11/23 06:57 Pulse Rate 113 H 08/11/23 06:57 Respiratory Rate 24 08/11/23 06:57 Blood Pressure 186/88 H 08/11/23 06:57 Blood Pressure Mean 120 H 08/11/23 06:57 Blood Pressure Position Sitting 08/11/23 06:57 Pulse Oximetry 96 08/11/23 06:57 Oxygen Delivery Method Room Air 08/11/23 06:57 Vital Signs Temperature 98.3 F 08/11/23 06:57 Pulse Rate 113 H 08/11/23 06:57 Respiratory Rate 24 08/11/23 06:57 Blood Pressure 186/88 H 08/11/23 06:57 Pulse Oximetry 96 08/11/23 06:57 Oxygen Delivery Method Room Air 08/11/23 06:57 Temperature 98.3 F 08/11/23 06:57 Pulse Rate 118 H 08/11/23 09:00 Respiratory Rate 26 H 08/11/23 09:00 Blood Pressure 153/77 H 08/11/23 08:30 Pulse Oximetry 97 08/11/23 09:00 Oxygen Delivery Method Room Air 08/11/23 09:00 <Alcon Newell MD - Last Filed: 08/13/23 07:16> Initial Vital Signs Temperature 98.3 F 08/11/23 06:57 Temperature Source Temporal Artery Scan 08/11/23 06:57 Pulse Rate 113 H 08/11/23 06:57 Respiratory Rate 24 08/11/23 06:57 Blood Pressure 186/88 H 08/11/23 06:57 Blood Pressure Mean 120 H 08/11/23 06:57 Blood Pressure Position Sitting 08/11/23 06:57 Pulse Oximetry 96 08/11/23 06:57 Oxygen Delivery Method Room Air 08/11/23 06:57 Vital Signs Temperature 98.3 F 08/11/23 06:57 Pulse Rate 113 H 08/11/23 06:57 Respiratory Rate 24 08/11/23 06:57 Blood Pressure 186/88 H 08/11/23 06:57 Pulse Oximetry 96 08/11/23 06:57 Oxygen Delivery Method Room Air 08/11/23 06:57 Temperature 98.3 F 08/11/23 06:57 Pulse Rate 118 H 08/11/23 09:00 Respiratory Rate 26 H 08/11/23 09:00 Blood Pressure 153/77 H 08/11/23 08:30 Pulse Oximetry 97 08/11/23 09:00 Oxygen Delivery Method Room Air 08/11/23 09:00 <Estuardo Piña MD - Last Filed: 08/11/23 09:22> Medications Administered Medications: Discontinued Medications Generic Name Dose Route Start Last Admin Trade Name Freq PRN Reason Stop Dose Admin Albuterol 2.5 mg 08/11/23 08:24 08/11/23 08:29 Albuterol Sulfate 2.5 Mg/3 Ml Vial.Neb [facility] 08/11/23 08:25 2.5 mg ONCE ONE Administration Albuterol/Ipratropium 1 neb 08/11/23 07:50 08/11/23 07:56 Iprat-Albut 0.5-2.5 Mg/3 Ml Neb 08/11/23 07:51 1 neb ONCE ONE Administration Prednisone 40 mg 08/11/23 08:24 08/11/23 08:29 Prednisone 20 Mg Tablet PO 08/11/23 08:25 40 mg ONCE ONE Administration <Alcon Newell MD - Last Filed: 08/13/23 07:16> Discontinued Medications Generic Name Dose Route Start Last Admin Trade Name Freq PRN Reason Stop Dose Admin Albuterol 2.5 mg 08/11/23 08:24 08/11/23 08:29 Albuterol Sulfate 2.5 Mg/3 Ml Vial.[facility] 08/11/23 08:25 2.5 mg ONCE ONE Administration Albuterol/Ipratropium 1 [facility] 08/11/23 07:50 08/11/23 07:56 Iprat-Albut 0.5-2.5 Mg/3 Ml [facility] 08/11/23 07:51 1 [facility] ONCE ONE Administration Prednisone 40 mg 08/11/23 08:24 08/11/23 08:29 Prednisone 20 Mg Tablet PO 08/11/23 08:25 40 mg ONCE ONE Administration <Estuardo Piña MD - Last Filed: 08/11/23 09:22> MDM - SOB/Dyspnea Lab Data Labs: Lab Results 08/11/23 08/11/23 Range/Units 07:01 07:20 WBC 3.45 L (4.50-11.00) K/uL RBC 3.96 L (4.30-5.90) m/uL Hgb 12.7 L (13.5-17.5) gm/dL Hct 38.7 (37.0-53.0) % MCV 98 (80-100) fL MCH 32 (26-34) pg MCHC 33 (32-36) gm/dL RDW Coeff of Shantell 14.6 (11.5-15.5) % Plt Count 105 L (140-440) K/uL Neut % (Auto) 71.5 (42.0-72.0) % Lymph % (Auto) 12.2 L (20-44) % Luce % (Auto) 12.2 H (0.0-11.0) % Eos % (Auto) 1.2 (0.0-7.0) % Baso % (Auto) 1.2 (0.0-3.0) % Neut # (Auto) 2.50 (1.7-7.0) K/uL Lymph # (Auto) 0.40 L (0.90-2.90) K/uL Luce # (Auto) 0.40 (0.00-0.90) K/UL Eos # (Auto) 0.00 (0.00-0.50) K/uL Baso # (Auto) 0.00 (0.00-0.30) K/uL Abs Immat Gran (auto) 0.10 (0.00-0.30) K/uL Imm/Tot Granulo (auto) 1.7 % D-Dimer Quant (PE/DVT) 0.49 (0.00-0.50) ug/ml Sodium 138 (135-149) mmol/L Potassium 3.8 (3.6-5.1) mmol/L Chloride 109 (96-114) mmol/L Carbon Dioxide 15 L (20-32) mmol/L Anion Gap 14 (7-15) mEq/L BUN 23 (7-30) mg/dL Creatinine 1.5 (0.5-1.5) mg/dL Estimated Creat Clear 39.17 Estimated GFR 48 ml/min Glucose 99 (60-115) mg/dL Calcium 8.6 (8.4-10.6) mg/dL Troponin I < 0.01 L (0.01-0.04) ng/mL SARS-CoV-2 (PCR) Negative SARS-CoV-2 (Negative) Influenza Type A (PCR) Negative PCR FLU A (Negative) Influenza Type B (PCR) POSITIVE PCR FLU B A (Negative) RSV (PCR) Negative PCR RSV (Negative) <Alcon Newell MD - Last Filed: 08/13/23 07:16> Lab Results 08/11/23 08/11/23 Range/Units 07:01 07:20 WBC 3.45 L (4.50-11.00) K/uL RBC 3.96 L (4.30-5.90) m/uL Hgb 12.7 L (13.5-17.5) gm/dL Hct 38.7 (37.0-53.0) % MCV 98 (80-100) fL MCH 32 (26-34) pg MCHC 33 (32-36) gm/dL RDW Coeff of Shantell 14.6 (11.5-15.5) % Plt Count 105 L (140-440) K/uL Neut % (Auto) 71.5 (42.0-72.0) % Lymph % (Auto) 12.2 L (20-44) % Luce % (Auto) 12.2 H (0.0-11.0) % Eos % (Auto) 1.2 (0.0-7.0) % Baso % (Auto) 1.2 (0.0-3.0) % Neut # (Auto) 2.50 (1.7-7.0) K/uL Lymph # (Auto) 0.40 L (0.90-2.90) K/uL Luce # (Auto) 0.40 (0.00-0.90) K/UL Eos # (Auto) 0.00 (0.00-0.50) K/uL Baso # (Auto) 0.00 (0.00-0.30) K/uL Abs Immat Gran (auto) 0.10 (0.00-0.30) K/uL Imm/Tot Granulo (auto) 1.7 % D-Dimer Quant (PE/DVT) 0.49 (0.00-0.50) ug/ml Sodium 138 (135-149) mmol/L Potassium 3.8 (3.6-5.1) mmol/L Chloride 109 (96-114) mmol/L Carbon Dioxide 15 L (20-32) mmol/L Anion Gap 14 (7-15) mEq/L BUN 23 (7-30) mg/dL Creatinine 1.5 (0.5-1.5) mg/dL Estimated Creat Clear 39.17 Estimated GFR 48 ml/min Glucose 99 (60-115) mg/dL Calcium 8.6 (8.4-10.6) mg/dL Troponin I < 0.01 L (0.01-0.04) ng/mL SARS-CoV-2 (PCR) Negative SARS-CoV-2 (Negative) Influenza Type A (PCR) Negative PCR FLU A (Negative) Influenza Type B (PCR) POSITIVE PCR FLU B A (Negative) RSV (PCR) Negative PCR RSV (Negative) <Estuardo Piña MD - Last Filed: 08/11/23 09:22> Discharge Plan Discharge Clinical Impression: Influenza B, COPD exacerbation <Alcon Newell MD - Last Filed: 08/13/23 07:16> Patient Disposition: Home, Self-Care <Alcon Newell MD - Last Filed: 08/13/23 07:16> Condition: Guarded <Alcon Newell MD - Last Filed: 08/13/23 07:16> Instructions: Influenza (DC), COPD (Chronic Obstructive Pulmonary Disease) (DC) <Alcon Newell MD - Last Filed: 08/13/23 07:16> Additional Instructions: As we discussed, please return to the ER right away if you have any worsening of your condition, especially worsening trouble breathing, oxygen levels below 90%, chest pain, high fever, weakness, dehydration, vomiting. Use Tamiflu to treat influenza. Use prednisone once daily for 5 days to treat COPD. You will need to use your inhaler or nebulizer more often while you have influenza and your COPD is flaring up. Use your albuterol every 4 hours as needed for shortness of breath or cough. If you feel like you are still short of breath after treatment, or if you need to use it more than every 4 hours, you should return to the ER to be rechecked. Please follow-up with your regular doctor within 3-5 days for recheck. <Alcon Newell MD - Last Filed: 08/13/23 07:16> Prescriptions: New albuterol sulfate 90 mcg/actuation HFA aerosol inhaler 2 inh inhalation Q4H PRN (Reason: shortness of breath or wheezing) Qty: 8.5 0RF prednisone 20 mg tablet 40 mg PO DAILY 5 Days Qty: 10 0RF oseltamivir [Tamiflu] 75 mg capsule 75 mg PO BID 5 Days Qty: 10 0RF No Action albuterol sulfate 90 mcg/actuation HFA aerosol inhaler 2 puff inhalation Q4-6H PRN ascorbic acid (vitamin C) 500 mg capsule 500 mg PO DAILY aspirin 81 mg tablet,delayed release (DR/EC) 81 mg PO QDAY budesonide-formoterol 160-4.5 mcg/actuation HFA aerosol inhaler 2 puff inhalation BID cholecalciferol (vitamin D3) 25 mcg (1,000 unit) capsule 25 mcg PO QDAY cyclobenzaprine 10 mg tablet 10 mg PO TID dexamethasone 4 mg tablet 4 mg PO QDAY Rx Instructions: Take 10 tablets every week for 3 weeks. diclofenac sodium [Aleve (diclofenac)] 1 % gel 4 g topical QID Rx Instructions: apply to single knee, ankle, foot; for foot includes sole/toes/top of foot omega 2-vwc-igy-fish oil [Fish Oil] 1,000 mg (120 mg-180 mg) capsule 1 cap PO QDAY lenalidomide 10 mg capsule 10 mg PO QDAY Rx Instructions: swallow whole with glass of water; do not open, crush, chew , break, or dissolve 1 capsule daily for 14 days. loratadine [Allergy Relief (loratadine)] 10 mg tablet 10 mg PO QDAY metformin 1,000 mg tablet 1,000 mg PO BID tiotropium bromide 18 mcg capsule, w/inhalation device 1 cap inhalation QDAY Rx Instructions: puncture 1 cap using device; one dose = 2 inhalations prochlorperazine maleate 10 mg tablet 10 mg PO Q6H PRN <Alcon Newell MD - Last Filed: 08/13/23 07:16> Follow Up/Referrals: Heather Ware APRN, CERTIFIED FAMILY MEDIATOR [Primary Care Provider] - <Alcon Newell MD - Last Filed: 08/13/23 07:16> Stand Al[facility]: [facility] Info Instructions <Alcon Newell MD - Last Filed: 08/13/23 07:16>
[2023-08-11 07:33] LABS: Slide Review Reflex No
--- OUTSIDE RECORDS SUMMARY | 2023-08-11 07:33 | XMS_ITS | Continuity of Care Document ---
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 It does not include entries that were removed or entered in error. Problem Status Onset Date Problem Type Date of Resolution Comments Source Anemia (SCT 115661979) Active Condition [facility] ([facility]) Cataract Active Condition [facility] ([facility]) Chronic kidney disease stage 3 Active Condition [facility] (OC) COPD - Chronic Obstructive Pulmonary Disease (SCT 95598217) Active Condition [facility] ([facility]) Diabetes Mellitus Type 2 (SCT 70928275) Active Condition [facility] ([facility]) Hyperlipidemia ([facility] 83844141) Active Condition [facility] (OC) Low back pain Active Condition Aug Entered By: CHANDLER CARVER Comment: CT Chest (06/03/2018) showed T12 myeloma lesion and bilateral ribs [facility] (OC) Myeloma Active Condition Aug 22 Entered By: CHANDLER CARVER Comment: Plasma Cell Myeloma (Dx 03/2018) [facility] Seasonal allergy Active Condition [facility] ([facility]) Diagnosis: ICD-10-CM N18.9 Chronic kidney disease, unspecified Active Diagnosis [facility] Diagnosis: ICD-10-CM C90.00 Multiple myeloma not having achieved remission Active Diagnosis [facility] Diagnosis: ICD-10-CM Z23 Encounter for immunization Active Diagnosis [facility] ([facility]) Diagnosis: ICD-10-CM J44.1 Chronic obstructive pulmonary disease w (acute) exacerbation Active Diagnosis [facility] ([facility]) Diagnosis: ICD-10-CM E11.9 Type 2 diabetes mellitus without complications Active Diagnosis [facility] Diagnosis: ICD-10-CM Z00.00 Encntr for general adult [...] - SHAKE WELL INHALA TION ACTIVE 11/15/2023 [id number] 3 FRID,CHRI STIE L 2022 [place] [facility] ALBUTEROL 90MCG/ACTUA T (CFC-F) INHL,ORAL,8 .5GM DOSE COUNTER INHALE 2 PUFFS BY INHALATI ON EVERY 4-6 HOURS NEEDED FOR IMMEDIAT E RELIEF OF SHORTNES S OF BREATH - SHAKE WELL INHALA TION DISCONT INUED 09/15/2022 [id number] 2 CHEY SHELBY K 2021 [facility] ([facility]) ALBUTEROL/I PRATROPIUM SOLN,INHL INHALE 3 ML ALBUTERO L 2.5% SOLUTION IN NEBULIZE R BY INHALATI ON TWICE A DAY NEEDED INHALA TION ACTIVE CHEY SHELBY K 2021 [facility]) ALLOPURINOL 100MG TAB TAKE ONE-HALF TABLET BY MOUTH EVERY DAY ELEVATED URIC ACID ORALLY DISCONT INUED 11/15/2023 [id number] 3 [facility] L [facility] ALLOPURINOL 100MG TAB TAKE 50MG BY MOUTH EVERY DAY ELEVATED URIC ACID ORALLY DISCONT INUED (EDIT) 11/15/2023 [id number] 3 [facility] ASCORBIC ACID TAB TAKE EVERY DAY ACTIVE MERI MORENO 2017 [facility] ASPIRIN 81MG TAB,EC TAKE ONE TABLET BY MOUTH EVERY DAY ORALLY ACTIVE MARK YORK 2007 [facility]) CHOLECALCIF PAPI 25MCG (1,000UNIT) TAB TAKE ONE TABLET BY MOUTH EVERY DAY ORALLY ACTIVE JENNIFER CARVER 2017 [facility] CYANOCOBALA MIN 1000MCG TAB TAKE ONE TABLET BY MOUTH EVERY DAY ORALLY ACTIVE 04/10/2024 [id number] 3 BROWN,CHEY NDA K 2022 [facility] CYANOCOBALA MIN 1000MCG TAB TAKE ONE TABLET BY MOUTH EVERY DAY ORALLY DISCONT INUED 04/08/2023 [id number] 3 FRID,CHRI STIE L 2021 [facility] DEXAMETHASO NE 4MG TAB TAKE FIVE TABLETS BY MOUTH EVERY WEEK WITH FOOD OR MILK. THIS IS A COMPONEN T OF A CHEMOTHE RAPY REGIMEN. ORALLY ACTIVE 08/31/2023 [id number] 4 FRID,CHRI STIE L 2023 [facility] DEXAMETHASO NE 4MG TAB TAKE FIVE TABLETS BY MOUTH EVERY WEEK WITH FOOD OR MILK. THIS IS A COMPONEN T OF A CHEMOTHE RAPY REGIMEN. ORALLY DISCONT INUED 08/03/2023 [id number] 3 FRID,CHRI STIE L 2022 [facility] DEXAMETHASO NE 4MG TAB TAKE FIVE TABLETS BY MOUTH EVERY WEEK WITH FOOD OR MILK. THIS IS A COMPONEN T OF A CHEMOTHE RAPY REGIMEN. ORALLY DISCONT INUED 07/07/2023 [id number] 3 FRID,CHRI STIE L 2022 [facility] DEXAMETHASO NE 4MG TAB TAKE FIVE TABLETS BY MOUTH ONCE A WEEK WITH FOOD OR MILK. THIS IS A COMPONEN T OF A CHEMOTHE RAPY REGIMEN. ORALLY DISCONT INUED 06/09/2023 [id number] 3 FRID,CHRI STIE L 2022 [facility] DEXAMETHASO NE 4MG TAB TAKE FIVE TABLETS BY MOUTH ONCE A WEEK WITH FOOD OR MILK. THIS IS A COMPONEN T OF A CHEMOTHE RAPY REGIMEN. ORALLY DISCONT INUED 05/17/2023 [id number] 3 FRID,CHRI STIE L 2022 [facility] DEXAMETHASO NE 4MG TAB TAKE FIVE TABLETS BY MOUTH EVERY WEEK WITH FOOD OR MILK. THIS IS A COMPONEN T OF A CHEMOTHE RAPY REGIMEN. ORALLY DISCONT INUED 03/15/2023 [id number] 3 FRID,CHRI STIE L 2022 [facility] DEXAMETHASO NE 4MG TAB TAKE FIVE TABLETS BY MOUTH EVERY WEEK WITH FOOD OR MILK. THIS IS A COMPONEN T OF A CHEMOTHE RAPY REGIMEN. ORALLY DISCONT INUED 01/18/2023 [id number] 3 FRID,CHRI STIE L 2022 [facility] DEXAMETHASO NE 4MG TAB TAKE FIVE TABLETS BY MOUTH EVERY WEEK WITH FOOD OR MILK. THIS IS A COMPONEN T OF A CHEMOTHE RAPY REGIMEN. ORALLY DISCONT INUED 12/21/2022 [id number] 3 BLISS,RAY HELLE L 2022 [facility] DEXAMETHASO NE 4MG TAB TAKE FIVE TABLETS BY MOUTH EVERY WEEK WITH FOOD OR MILK. THIS IS A COMPONEN T OF A CHEMOTHE RAPY REGIMEN. ORALLY DISCONT INUED 11/23/2022 [id number] 3 FRID,CHRI STIE L 2022 [facility] DEXAMETHASO NE 4MG TAB TAKE FIVE TABLETS MOUTH EVERY WEEK WITH FOOD OR MILK. THIS IS A COMPONEN T OF A CHEMOTHE RAPY REGIMEN. ORALLY DISCONT INUED 10/26/2022 [id number] 3 FRID,CHRI STIE L 2022 [facility] DEXAMETHASO NE 4MG TAB TAKE FIVE TABLETS BY MOUTH EVERY WEEK WITH FOOD OR MILK. THIS IS A COMPONEN T OF A CHEMOTHE RAPY REGIMEN. ORALLY DISCONT INUED 08/25/2022 [id number] 3 FRID,CHRI STIE L 2022 [facility] DEXAMETHASO NE 4MG TAB TAKE FIVE TABLETS BY MOUTH EVERY WEEK WITH FOOD OR MILK. THIS IS A COMPONEN T OF A CHEMOTHE RAPY REGIMEN. ORALLY DISCONT INUED 07/28/2022 [id number] 2 FRID,CHRI STIE L 2021 [facility] DEXAMETHASO NE 4MG TAB TAKE FIVE TABLETS BY MOUTH EVERY WEEK WITH FOOD OR MILK. THIS IS A COMPONEN T OF A CHEMOTHE RAPY REGIMEN. ORALLY DISCONT INUED 07/05/2022 [id number] 2 FRID,CHRI STIE L 2021 [place] [facility] DEXAMETHASO NE 4MG TAB TAKE FIVE TABLETS BY MOUTH EVERY WEEK WITH FOOD OR MILK. THIS IS A COMPONEN T OF A CHEMOTHE RAPY REGIMEN. ORALLY 04/08/2023 [id number] 3 FRID,CHRI STIE L 2022 [place] [facility] DEXAMETHASO NE 4MG TAB TAKE FIVE TABLETS BY MOUTH EVERY WEEK WITH FOOD OR MILK. THIS IS A COMPONEN T OF A CHEMOTHE RAPY REGIMEN. ORALLY 02/11/2023 [id number] 3 FRID,CHRI STIE L 2022 [place] DEXAMETHASO NE 4MG TAB TAKE FIVE TABLETS BY MOUTH EVERY WEEK WITH FOOD OR MILK. THIS IS A COMPONEN T OF A CHEMOTHE RAPY REGIMEN. ORALLY 09/24/2022 [id number] 3 FRID,CHRI STIE L 2022 [place] [facility] DOXYCYCLINE HYCLATE 50MG CAP TAKE 2 CAPSULES BY MOUTH TWICE A DAY ORALLY ACTIVE CHEY SHELBY K 2022 [facility] EMPAGLIFLOZ IN 25MG TAB TAKE ONE-HALF TABLET BY MOUTH EVERY MORNING FOR DIABETES AND KIDNEY ORALLY ACTIVE 03/19/2024 [id number] 3 [facility] 2022 [place] [facility] EMPAGLIFLOZ IN 25MG TAB TAKE ONE-HALF TABLET BY MOUTH EVERY MORNING FOR DIABETES AND KIDNEY ORALLY DISCONT INUED 03/07/2023 [id number] 3 [facility] 2021 [facility] FISH OIL 1000MG (500MG DHA/EPA) CAP,ORAL TAKE 1 CAPSULE BY MOUTH TWICE A DAY ORALLY ACTIVE MARK YORK 2007 [facility]) GLIPIZIDE 10MG TAB TAKE ONE TABLET BY MOUTH TWICE A DAY 30 MINUTES BEFORE MEAL FOR DIABETES ORALLY ACTIVE 12/22/2023 [id number] 4 CHEY SHELBY K 2022 [facility] GLIPIZIDE 10MG TAB TAKE ONE TABLET BY MOUTH TWICE A DAY 30 MINUTES BEFORE MEAL FOR DIABETES ORALLY DISCONT INUED 10/19/2022 [id number] 3 CHEY SHELBY NDA K 2021 [facility] LENALIDOMID E 10MG CAP,ORAL TAKE ONE CAPSULE BY MOUTH EVERY DAY FOR 21 DAYS THEN 7 DAYS OFF. TAKE WITH A GLASS OF WATER*DO CUMENTAT ION ONLY-KAVITA LED BY [facility] * ORALLY ACTIVE 08/31/2023 [id number] FRID,[facility] SAE Carlos 2023 [facility] LENALIDOMID E 10MG CAP,ORAL TAKE ONE CAPSULE BY MOUTH EVERY DAY FOR 21 DAYS THEN 7 DAYS OFF. TAKE WITH A GLASS OF WATER*DO CUMENTAT ION ONLY-[facility] * ORALLY DISCONT INUED 08/03/2023 [id number] 4 FRID,HEMA Carlos 2023 [facility] LENALIDOMID E 10MG CAP,ORAL TAKE ONE CAPSULE BY MOUTH EVERY DAY FOR 21 DAYS THEN 7 DAYS OFF. TAKE WITH A GLASS OF WATER*DO CUMENTAT ION ONLY-[facility] * ORALLY DISCONT INUED 07/07/2023 [id number] 3 FRID,HEMA Carlos 2022 [facility] LENALIDOMID E 10MG CAP,ORAL TAKE ONE CAPSULE BY MOUTH EVERY DAY FOR 21 DAYS THEN 7 DAYS OFF. TAKE WITH A GLASS OF WATER. [facility] MAILS TO PATIENT ORALLY DISCONT INUED 06/09/2023 [id number] 3 [facility] LENALIDOMID E 10MG CAP,ORAL TAKE ONE CAPSULE BY MOUTH EVERY DAY FOR 21 DAYS AND THEN 7 DAYS OFF*TAKE WITH A GLASS OF WATER--D OCUMENTA TION ONLY--DANITZA ILED TO PATIENT BY [facility] ORALLY DISCONT INUED 05/17/2023 [id number] 3 FRID,HEMA Carlos 2022 [place] [facility] LENALIDOMID E 10MG CAP,ORAL TAKE ONE CAPSULE BY MOUTH EVERY DAY FOR 21 DAYS THEN 7 DAYS OFF. SWALLOW WHOLE WITH WATER*FO R DOCUMENT ATION ONLY-KAVITA LED BY [employer] [facility] ORALLY DISCONT INUED 03/15/2023 [id number] 3 [facility] [place] [facility] LENALIDOMID E 10MG CAP,ORAL TAKE ONE CAPSULE BY MOUTH EVERY DAY FOR 21 DAYS AND THEN 7 DAYS OFF. SWALLOW WHOLE WITH WATER *FOR DOCUMENT ATION ONLY - FILLED BY [employer] * ORALLY DISCONT INUED 01/18/2023 [id number] 3 FRID,HEMA Carlos 2022 [place] [facility] LENALIDOMID E 10MG CAP,ORAL TAKE ONE CAPSULE BY MOUTH EVERY DAY FOR 21 DAYS AND THEN 7 DAYS OFF. SWALLOW WHOLE WITH WATER *FOR DOCUMENT ATION ONLY - FILLED BY [facility] * ORALLY DISCONT INUED 12/21/2022 [id number] 3 [facility] [place] [facility] LENALIDOMID E 10MG CAP,ORAL TAKE ONE CAPSULE BY MOUTH EVERY DAY FOR 21 DAYS AND THEN 7 DAYS OFF. SWALLOW WHOLE WITH WATER*FO R DOCUMENT ATION ONLY-KAVITA LED [facility] [employer] [facility] * ORALLY DISCONT INUED 11/23/2022 [id number] 3 FRID,HEMA Carlos 2022 [place] [facility] LENALIDOMID E 10MG CAP,ORAL TAKE ONE CAPSULE BY MOUTH EVERY DAY FOR 21 DAYS AND THEN 7 DAYS OFF. SWALLOW WHOLE WITH WATER *FOR DOCUMENT ATION ONLY - FILLED BY [facility] * ORALLY DISCONT INUED 10/26/2022 [id number] 3 FRID,HEMA Carlos 2022 [place] [facility] LENALIDOMID E 10MG CAP,ORAL TAKE ONE CAPSULE BY MOUTH EVERY DAY FOR 21 DAYS THEN 7 DAYS OFF *TAKE WITH A GLASS OF WATER--D OCUMENTA TION ONLY--DANITZA ILED TO PATIENT BY [facility] ORALLY DISCONT INUED 08/25/2022 [id number] 3 FRID,CHRBeth Carlos 2022 [place] [facility] LENALIDOMID E 10MG CAP,ORAL TAKE ONE CAPSULE BY MOUTH EVERY DAY FOR 21 DAYS THEN 7 DAYS OFF *TAKE WITH A GLASS OF WATER--D OCUMENTA TION ONLY--MA ILED TO PATIENT BY [facility] ORALLY DISCONT INUED 07/28/2022 [id number] 2 FRID,CHRI STIMarlyn Carlos 2021 [place] [facility] LENALIDOMID E 10MG CAP,ORAL TAKE ONE CAPSULE BY MOUTH EVERY DAY FOR 21 DAYS THEN 7 DAYS OFF *TAKE WITH A GLASS OF WATER--D OCUMENTA TION ONLY--MA ILED TO PATIENT BY [facility] ORALLY DISCONT INUED 07/05/2022 [id number] 2 FRID,HEMA Carlos 2021 [place] [facility] LENALIDOMID E 10MG CAP,ORAL TAKE ONE CAPSULE BY MOUTH EVERY DAY FOR 21 DAYS THEN 7 DAYS OFF-DOCU MENTATIO N ONLY-ANKITA [facility] ORALLY DISCONT INUED 06/08/2022 [id number] 2 FRID,HEMA Carlos 2021 [place] [facility] LENALIDOMID E 10MG CAP,ORAL TAKE ONE CAPSULE BY MOUTH EVERY DAY FOR 21 DAYS AND THEN 7 DAYS OFF. SWALLOW WHOLE WITH WATER *FOR DOCUMENT ATION ONLY - FILLED BY [facility] * ORALLY 04/08/2023 [id number] 3 FRID,CHRI SAE Carlos 2022 [place] [facility] LENALIDOMID E 10MG CAP,ORAL TAKE ONE CAPSULE BY MOUTH EVERY DAY FOR 21 DAYS AND THEN 7 DAYS OFF. SWALLOW WHOLE WITH WATER *FOR DOCUMENT ATION ONLY - FILLED BY [facility] * ORALLY 02/11/2023 [id number] 3 FRID,CHRI SAE Carlos 2022 [place] [facility] LENALIDOMID E 10MG CAP,ORAL TAKE ONE CAPSULE BY MOUTH EVERY DAY FOR 21 DAYS AND THEN 7 DAYS OFF. SWALLOW WHOLE WITH WATER *FOR DOCUMENT ATION ONLY - FILLED BY [facility] * ORALLY 09/24/2022 [id number] 3 FRID,CHRI STIE L 2022 [facility] LORATADINE 10MG TAB TAKE ONE TABLET BY MOUTH PRN ORALLY ACTIVE KWABENA ANGEL 2010 [facility] MAGNESIUM OXIDE 420MG TAB TAKE ONE TABLET BY MOUTH TWICE A DAY FOR LOW MAGNESIU M ORALLY ACTIVE 09/23/2023 [id number] 3 FRID,CHRI STIE L 2022 [facility] MAGNESIUM OXIDE 420MG TAB TAKE ONE TABLET BY MOUTH TWICE A DAY FOR LOW MAGNESIU M ORALLY DISCONT INUED 11/09/2022 [id number] 3 FRID,CHRI STIE L 2021 [facility] METFORMIN HCL 1000MG TAB TAKE ONE TABLET BY MOUTH EVERY DAY TO DECREASE BLOOD SUGAR ORALLY ACTIVE 04/10/2024 [id number] 3 CHEY SHELBY 2022 [facility] METFORMIN HCL 1000MG TAB TAKE ONE TABLET BY MOUTH EVERY DAY TO DECREASE BLOOD SUGAR ORALLY DISCONT INUED 04/03/2023 [id number] 3 CHEY SHELBY 2021 [facility] MOMETASONE FUROATE 100MCG/ACTU AT INHL,ORAL,1 20D,13GM INHALE 2 PUFFS BY MOUTH TWICE A DAY FOR COPD INHALA TION ORAL ACTIVE 04/10/2024 [id number] 3 CHEY SHELBY 2022 [facility]) MOMETASONE FUROATE 100MCG/ACTU AT INHL,ORAL,1 20D,13GM INHALE 2 PUFFS BY MOUTH TWICE A DAY RINSE MOUTH AFTER USING ORALLY 09/15/2022 [id number] 3 CHEY SHELBY 2021 [facility] MULTIVITAMI NS CAP/TAB TAKE ONE TABLET BY MOUTH EVERY DAY ORALLY ACTIVE Sirisha SANTIAGO 2015 [facility]) NYSTATIN [id number] L SUSP,ORAL TAKE 1 TEASPOON FUL BY MOUTH FOUR TIMES A DAY FOR INTERMIT TENT THRUSH * MAKE SURE YOU SWISH AND THEN SWALLOW* ORALLY ACTIVE 03/09/2024 [id number] 3 FRID,CHRI STIE L 2022 [facility] OLODATEROL 2.5MCG/TIOT ROPIUM 2.5MCG/ACTU AT INHL,ORAL,6 0D,4GM INHALE 2 PUFFS BY INHALATI ON EVERY DAY TO PREVENT TROUBLE BREATHIN G INHALA TION ACTIVE 04/10/2024 [id number] 4 CHEY SHELBY MARKA K 2022 [facility]) OLODATEROL 2.5MCG/TIOT ROPIUM 2.5MCG/ACTU AT INHL,ORAL,6 0D,4GM INHALE 2 PUFFS BY INHALATI ON EVERY DAY TO PREVENT TROUBLE BREATHIN G INHALA TION DISCONT INUED 04/03/2023 [id number] 3 CHEY SHELBY NDDarío K 2021 [facility] PHOSPHORUS 250MG/POTAS SIUM 280MG/SODIU M 160MG/PKT PWDR TAKE 1 PACKET BY MOUTH TWICE A DAY *MIX PACKET WITH 2.5 ML OF WATER OR JUICE. STIR WELL AND DRINK PROMPTLY ORALLY SUSPEND ED 07/17/2024 [id number] 4 FRID,CHRI STIE L 2023 [facility] PHOSPHORUS 250MG/POTAS SIUM 280MG/SODIU M 160MG/PKT PWDR TAKE 1 PACKET BY MOUTH TWICE A DAY *MIX PACKET WITH 2.5 ML OF WATER OR JUICE. STIR WELL AND DRINK PROMPTLY ORALLY DISCONT INUED 04/08/2023 [id number] 3 FRID,CHRI STIE L 2021 [facility] PROCHLORPER AZINE MALEATE 10MG TAB TAKE ONE TABLET BY MOUTH EVERY 6 HOURS NEEDED FOR NAUSEA AND VOMITING . DO NOT TAKE MORE THAN 40 MG PER DAY. ORALLY HOLD 11/22/2023 [id number] RAY MCCORMICK L 2022 [facility] PROCHLORPER AZINE MALEATE 10MG TAB TAKE ONE TABLET BY MOUTH EVERY 6 HOURS NEEDED FOR NAUSEA AND VOMITING . DO NOT TAKE MORE THAN 40 MG PER DAY. ORALLY 11/13/2022 [id number] HEMA SALGADO 2021 [facility] Allergies, Adverse Reactions, Alerts Combined list of allergies from Department of [facility] and Veterans Affairs facilities. It does not include entries that were removed or entered in error. Substance Category Reaction Severity Reaction type Status Date Reported Comments Source ATORVASTATIN Propensity to adverse reactions to drug (finding) Pain in lower limb active 6 [facility] SIMVASTATIN Propensity to adverse reactions to drug (finding) Muscle pain active 6 [facility] Immunizations Combined list of available immunizations from the Department of [facility] and Veterans [facility] facilities. Immunization Series Date Given Administered By Site Reaction Lot Number CVX Code Drug Destination Specialist Status Comments Source COVID-19 (FOCUS RESEARCH), MRNA, LNP-S, PF, ANGE-SUCROSE, 30 MCG/0.3 ML (AGES 12+ YEARS) 1 2022 Kaleb BARRERA LEFT DELTO ID [id number] 309 complet ed upper left deltoid [facility]) ZOSTER RECOMBINANT 2 2022 Kaleb BARRERA LEFT DELTO ID [id number] 187 complet ed DILUENT LOT#[id number] , exp. 01/13/2024 given in upper left deltoid. [facility] INFLUENZA, HIGH-DOSE, QUADRIVALENT 2022 Kaleb BARRERA LEFT DELTO ID [id number] 197 complet ed [facility]) ZOSTER RECOMBINANT 1 2022 Kaleb BARRERA LEFT DELTO ID [id number] 187 complet ed DILUENT LOT# [id number] [facility] COVID-19 (FOCUS RESEARCH), MRNA, LNP-S, BIVALENT BOOSTER, PF, 30 MCG/0.3 ML DOSE 1 2022 SETH ARIZA LEFT DELTO ID [id number] 300 complet ed [facility] INFLUENZA VACCINE, QUADRIVALENT, ADJUVANTED 2021 205 complet ed [facility] COVID-19 (FOCUS RESEARCH), MRNA, LNP-S, PF, 30 MCG/0.3 ML DOSE, ANGE-SUCROSE (AGES 12+ YEARS) 2021 217 complet ed [facility] TDAP 2020 115 complet ed [facility] COVID-19 (PFIZER), MRNA, LNP-S, PF, 30 MCG/0.3 ML DOSE 3 2020 208 complet ed PFR; [id number]; 1 [facility] INFLUENZA, INJECTABLE, QUADRIVALENT, PRESERVATIVE FREE 2020 150 complet ed [facility] COVID-19 (PFIZER), MRNA, LNP-S, PF, 30 MCG/0.3 ML DOSE 2 2020 208 complet ed PFR; [id number]; 1 [facility] COVID-19 ([facility]), MRNA, LNP-S, PF, 30 MCG/0.3 ML DOSE 1 2020 208 complet ed PFR; [id number]; 1 [facility] INFLUENZA, INJECTABLE, QUADRIVALENT, PRESERVATIVE FREE 2019 150 complet ed [facility] INFLUENZA, SEASONAL, INJECTABLE, PRESERVATIVE FREE 2018 140 complet ed [facility] INFLUENZA, SEASONAL, INJECTABLE, PRESERVATIVE FREE 2017 140 complet ed [facility] INFLUENZA, HIGH DOSE SEASONAL 2016 135 complet ed [facility] TDAP 2016 115 complet ed gsk, [id number], 02-22-2019 [facility] INFLUENZA, HIGH DOSE SEASONAL 2014 135 complet ed [facility] PNEUMOCOCCAL CONJUGATE PCV 13 2014 133 complet ed [employer] Lot #[id number] Exp. 07/2016 [facility] PNEUMOCOCCAL, UNSPECIFIED FORMULATION 2012 109 complet ed [employer] [id number] [facility] ZOSTER LIVE 2011 121 [...] POLYSACCHARID E [id number] 2007 33 complet ed [facility] ZOSTER LIVE 2007 121 complet ed [facility] INFLUENZA, SEASONAL, INJECTABLE, PRESERVATIVE FREE 2006 140 complet ed [facility] TDAP 2006 115 complet ed Before Surgery for hernia [facility] PNEUMOCOCCAL, UNSPECIFIED FORMULATION 2006 109 complet ed [facility] TD (ADULT), 2 LF TETANUS TOXOID, PRESERVATIVE FREE, ADSORBED 2005 09 complet ed [facility] INFLUENZA, SEASONAL, INJECTABLE 1995 141 complet ed [facility] TD (ADULT), 2 LF TETANUS TOXOID, PRESERVATIVE FREE, ADSORBED 1991 09 complet ed [facility] Results Combined list of recent chemistry, hematology and other laboratory results from Department of Defense and Veterans Affairs, ranging from 15 months to all on record, depending upon the facility. Order Name Results Value Reference Range Date Interpretation Specimen Comments Source ALBUMIN/ CREATINI NE RATIO URINE CREATININE [MASS/VOLU ME] IN URINE 69.7 58.0 - 161.0 08/01 Specimen Type: URINE No comment entered. Ordering Provider: JYOTI GREER Report Released Date/Time: Jul 05, 2023 11:16 AM Reporting Lab: [facility] [address] Performing Lab: [facility] [address] [facility] ALBUMIN/ CREATINI NE RATIO URINE MICROALBUM IN/CREATIN INE [MASS RATIO] IN URINE 23.5 <29.9 - 29.9 08/01 Specimen Type: URINE No comment entered. Ordering Provider: JYOTI GREER Report Released Date/Time: Jul 05, 2023 11:16 AM Reporting Lab: [facility] [address] Performing Lab: [facility] [address] [facility] ALBUMIN/ CREATINI NE RATIO URINE MICROALBUM IN [MASS/VOLU ME] IN URINE 16.4 <29.9 - 29.9 08/01 Specimen Type: URINE No comment entered. Ordering Provider: JYOTI GREER Report Released Date/Time: Jul 05, 2023 11:16 AM Reporting Lab: [facility] [address] Performing Lab: [facility] [address] [facility] ELP/IMMF IX,URINE RANDOM PANEL PROTEIN [MASS/VOLU ME] IN URINE 12.5 <14.0 - 14.0 08/01 Specimen Type: URINE Comment: Urine immunotypin g performed. No monoclonal proteins identified. Ordering Provider: JYOTI GREER Report Released Date/Time: Jul 05, 2023 11:16 AM Reporting Lab: [facility] [address] Performing Lab: [facility] [address] [facility]IM[facility] IX,URINE RANDOM PANEL IMMUNOFIXA TION FOR URINE NO MONOCLON ALS DETECTED 08/01 Specimen Type: URINE Comment: Urine immunotypin g performed. No monoclonal proteins identified. Ordering Provider: JYOTI GREER Report Released Date/Time: Jul 05, 2023 11:16 AM Reporting Lab: [facility] [address] Performing Lab: [facility] [address] [facility] PROTEIN/ CREATINI NE RATIO URINE PROTEIN/CR EATININE [MASS RATIO] IN URINE 0.18 <0.19 - 0.19 08/01 Specimen Type: URINE No comment entered. Ordering Provider: JYOTI GREER Report Released Date/Time: Jul 05, 2023 11:16 AM Reporting Lab: [facility] [address] Performing Lab: [facility] [address] [facility] PROTEIN/ CREATINI NE RATIO URINE CREATININE [MASS/VOLU ME] IN URINE 69.1 58.0 - 161.0 08/01 Specimen Type: URINE No comment entered. Ordering Provider: JYOTI GREER Report Released Date/Time: Jul 05, 2023 11:16 AM Reporting Lab: [facility] [address] Performing Lab: [facility] [address] [place] [facility] PROTEIN/ CREATINI NE RATIO URINE PROTEIN [MASS/VOLU ME] IN URINE 12.5 <14.0 - 14.0 08/01 Specimen Type: URINE No comment entered. Ordering Provider: JYOTI GREER Report Released Date/Time: Jul 05, 2023 11:16 AM Reporting Lab: [facility] [id number] Performing Lab: [facility] [address] [place] [facility] URINALYS IS COLOR OF URINE LIGHT-YE LLOW 08/01 Specimen Type: URINE No comment entered. Ordering Provider: JYOTI GREER Report Released Date/Time: Jul 05, 2023 11:16 AM Reporting Lab: [facility] [address] Performing Lab: [facility] [address] [place] [facility] URINALYS IS SPECIFIC GRAVITY OF URINE 1.027 1.003 - 1.035 08/01 Specimen Type: URINE No comment entered. Ordering Provider: JYOTI GREER Report Released Date/Time: Jul 05, 2023 11:16 AM Reporting Lab: [facility] [phone] Performing Lab: [facility] [address] [place] [facility] URINALYS IS BILIRUBIN. TOTAL [PRESENCE] IN URINE BY TEST STRIP NEGATIVE 08/01 Specimen Type: URINE No comment entered. Ordering Provider: JYOTI GREER Report Released Date/Time: Jul 05, 2023 11:16 AM Reporting Lab: [facility] [phone] Performing Lab: [facility] [address] [place] [facility] URINALYS IS KETONES [MASS/VOLU ME] IN URINE BY TEST STRIP NEGATIVE 08/01 Specimen Type: URINE No comment entered. Ordering Provider: JYOTI GREER Report Released Date/Time: Jul 05, 2023 11:16 AM Reporting Lab: [facility] [phone] Performing Lab: [facility] [address] [place] [facility] URINALYS IS GLUCOSE [MASS/VOLU ME] IN URINE BY TEST STRIP >1000 08/01 Specimen Type: URINE No comment entered. Ordering Provider: JYOTI GREER Report Released Date/Time: Jul 05, 2023 11:16 AM Reporting Lab: [facility] [address] Performing Lab: [facility] [address] [place] [facility] URINALYS IS PROTEIN [MASS/VOLU ME] IN URINE BY TEST STRIP NEGATIVE 08/01 Specimen Type: URINE No comment entered. Ordering Provider: JYOTI GREER Report Released Date/Time: Jul 05, 2023 11:16 AM Reporting Lab: [facility] [address] Performing Lab: [facility] [address] [place] [facility] URINALYS IS PH OF URINE BY TEST STRIP 5.0 5.0 - 8.0 08/01 Specimen Type: URINE No comment entered. Ordering Provider: JYOTI GREER Report Released Date/Time: Jul 05, 2023 11:16 AM Reporting Lab: [facility] [address] Performing Lab: [facility] [address] [place] [facility] URINALYS IS LEUKOCYTES [#/AREA] IN URINE SEDIMENT BY MICROSCOPY HIGH POWER FIELD 1 0 - 7 08/01 Specimen Type: URINE No comment entered. Ordering Provider: JYOTI GREER Report Released Date/Time: Jul 05, 2023 11:16 AM Reporting Lab: [facility] [address] Performing Lab: [facility] [address] [place] [facility] URINALYS IS BACTERIA [PRESENCE] IN URINE SEDIMENT BY LIGHT MICROSCOPY NONE SEEN 08/01 Specimen Type: URINE No comment entered. Ordering Provider: JYOTI GREER Report Released Date/Time: Jul 05, 2023 11:16 AM Reporting Lab: [facility] [address] Performing Lab: [facility] [address] [place] [facility] URINALYS IS ERYTHROCYT ES [#/AREA] IN URINE SEDIMENT BY MICROSCOPY HIGH POWER FIELD <1 0 - 3 08/01 Specimen Type: URINE No comment entered. Ordering Provider: JYOTI GREER Report Released Date/Time: Jul 05, 2023 11:16 AM Reporting Lab: [facility] [address] Performing Lab: [facility] [address] [place] [facility] URINALYS IS APPEARANCE OF URINE CLEAR 08/01 Specimen Type: URINE No comment entered. Ordering Provider: JYOTI GREER Report Released Date/Time: Jul 05, 2023 11:16 AM Reporting Lab: [facility] [address] Performing Lab: [facility] [address] [place] [facility] URINALYS IS EPITHELIAL CELLS.SQUA MOUS [#/AREA] IN URINE SEDIMENT BY MICROSCOPY HIGH POWER FIELD NONE SEEN 08/01 Specimen Type: URINE No comment entered. Ordering Provider: JYOTI GREER Report Released Date/Time: Jul 05, 2023 11:16 AM Reporting Lab: [facility] [address] Performing Lab: [facility] [address] [place] [facility] URINALYS IS HEMOGLOBIN [PRESENCE] IN URINE BY TEST STRIP TRACE 08/01 Specimen Type: URINE No comment entered. Ordering Provider: JYOTI GREER Report Released Date/Time: Jul 05, 2023 11:16 AM Reporting Lab: [facility] [address] Performing Lab: [facility] [address] [place] [facility] URINALYS IS NITRITE [PRESENCE] IN URINE BY TEST STRIP NEGATIVE 08/01 Specimen Type: URINE No comment entered. Ordering Provider: JYOTI GREER Report Released Date/Time: Jul 05, 2023 11:16 AM Reporting Lab: [facility] [address] Performing Lab: [facility] [address] [place] [facility] URINALYS IS LEUKOCYTE ESTERASE [PRESENCE] IN URINE BY TEST STRIP NEGATIVE 08/01 Specimen Type: URINE No comment entered. Ordering Provider: JYOTI GREER Report Released Date/Time: Jul 05, 2023 11:16 AM Reporting Lab: [facility] [address] Performing Lab: [facility] [address] [place] [facility] ELP/IMMF IX,SERUM PANEL PROTEIN [MASS/VOLU ME] IN SERUM OR PLASMA 6.0 6.0 - 8.3 08/01 Specimen Type: SERUM Comment: IM FIX ADDED - Band(s) present. See Identificat ion in report. Peak(s) too small to quantitate. Ordering Provider: XENIA SALGADO Report Released Date/Time: Jul 04, 2023 02:25 PM Reporting Lab: [facility] [address] Performing Lab: [facility] [address] [place] [facility] ELP/IMMF IX,SERUM PANEL IMMUNOFIXA TION FOR SERUM OR PLASMA IgA lambda 08/01 Specimen Type: SERUM Comment: IM FIX ADDED - Band(s) present. See Identificat ion in report. Peak(s) too small to quantitate. Ordering Provider: XENIA SALGADO Report Released Date/Time: Jul 04, 2023 02:25 PM Reporting Lab: [facility] [address] Performing Lab: [facility] [address] [facility] ELP/IMMF IX,SERUM PANEL ALBUMIN [MASS/VOLU ME] IN SERUM OR PLASMA BY ELECTROPHO RESIS 3.98 3.66 - 4.78 08/01 Specimen Type: SERUM Comment: IM FIX ADDED - Band(s) present. See Identificat ion in report. Peak(s) too small to quantitate. Ordering Provider: XENIA SALGADO Report Released Date/Time: Jul 04, 2023 02:25 PM Reporting Lab: [facility] [address] Performing Lab: [facility] [address] [place] [facility] ELP/IMMF IX,SERUM PANEL ALPHA 1 GLOBULIN [MASS/VOLU ME] IN SERUM OR PLASMA BY ELECTROPHO RESIS 0.28 0.14 - 0.38 08/01 Specimen Type: SERUM Comment: IM FIX ADDED - Band(s) present. See Identificat ion in report. Peak(s) too small to quantitate. Ordering Provider: XENIA SALGADO Report Released Date/Time: Jul 04, 2023 02:25 PM Reporting Lab: [facility] [address] Performing Lab: [place] [address] [place] [facility] ELP/IMMF IX,SERUM PANEL ALPHA 2 GLOBULIN [MASS/VOLU ME] IN SERUM OR PLASMA BY ELECTROPHO RESIS 0.74 0.50 - 0.90 08/01 Specimen Type: SERUM Comment: IM FIX ADDED - Band(s) present. See Identificat ion in report. Peak(s) too small to quantitate. Ordering Provider: XENIA SALGADO Report Released Date/Time: Jul 04, 2023 02:25 PM Reporting Lab: [facility] [address] Performing Lab: [place] [address] [place] [facility] ELP/IMMF IX,SERUM PANEL BETA 1 GLOBULIN [MASS/VOLU ME] IN SERUM OR PLASMA BY ELECTROPHO RESIS 0.43 0.33 - 0.55 08/01 Specimen Type: SERUM Comment: IM FIX ADDED - Band(s) present. See Identificat ion in report. Peak(s) too small to quantitate. Ordering Provider: XENIA SALGADO Report Released Date/Time: Jul 04, 2023 02:25 PM Reporting Lab: [facility] [address] Performing Lab: [facility] [address] [place] [facility] ELP/IMMF IX,SERUM PANEL BETA 2 GLOBULIN [MASS/VOLU ME] IN SERUM OR PLASMA BY ELECTROPHO RESIS 0.25 0.20 - 0.52 08/01 Specimen Type: SERUM Comment: IM FIX ADDED - Band(s) present. See Identificat ion in report. Peak(s) too small to quantitate. Ordering Provider: XENIA SALGADO Report Released Date/Time: Jul 04, 2023 02:25 PM Reporting Lab: [facility] [address] Performing Lab: [place] [phone] [place] [facility] ELP/IMMF IX,SERUM PANEL GAMMA GLOBULIN [MASS/VOLU ME] IN SERUM OR PLASMA BY ELECTROPHO RESIS 0.33 0.58 - 1.72 08/01 L Specimen Type: SERUM Comment: IM FIX ADDED - Band(s) present. See Identificat ion in report. Peak(s) too small to quantitate. Ordering Provider: XENIA SALGADO Report Released Date/Time: Jul 04, 2023 02:25 PM Reporting Lab: [facility] [address] Performing Lab: [place] [address] [facility] ELP/IMMF IX,SERUM PANEL PROTEIN [MASS/VOLU ME] IN SERUM OR PLASMA 6.0 6.0 - 8.3 08/01 Specimen Type: SERUM Comment: IM FIX ADDED - Band(s) present. See Identificat ion in report. Peak(s) too small to quantitate. Ordering Provider: XENIA SALGADO Report Released Date/Time: Jul 04, 2023 02:25 PM Reporting Lab: [facility] [address] Performing Lab: [facility] [address] [facility] ELP/IMMF IX,SERUM PANEL IMMUNOELEC TROPHORESI S FOR SERUM OR PLASMA [place] 08/01 Specimen Type: SERUM Comment: IM FIX ADDED - Band(s) present. See Identificat ion in report. Peak(s) too small to quantitate. Ordering Provider: XENIA SALGADO Report Released Date/Time: Jul 04, 2023 02:25 PM Reporting Lab: [facility] [address] Performing Lab: [facility] [address] [facility] KAPPA/LA MBDA LC FREE,RAT IO KAPPA LIGHT [...] therapy of these disorders. Test Performed by [facility], [address] [place], [place] Robert Swift M.D., Ph.D., Director of Laboratorie s , CLIA [id number] Ordering Provider: XENIA SALGADO Report Released Date/Time: Jul 04, 2023 02:25 PM Reporting Lab: [facility] [address] Performing Lab: [address] [place] [facility] KAPPA/LA MBDA LC FREE,RAT IO LAMBDA LIGHT [...] therapy of these disorders. Test Performed by [facility], [address] [place], [place] Robert Swift M.D., Ph.D., Director of Laboratorie s , CLIA [id number] Ordering Provider: XENIA SALGADO Report Released Date/Time: Jul 04, 2023 02:25 PM Reporting Lab: [facility] [address] Performing Lab: [address] [place] [facility] KAPPA/LA MBDA LC FREE,RAT IO KAPPA LIGHT [...] therapy of these disorders. Test Performed by [facility], [place] [facility], [address] [place] [address] Robert Swift M.D., Ph.D., Director of Laboratorie s , CLIA [id number] Ordering Provider: XEINA SALGADO Report Released Date/Time: Jul 04, 2023 02:25 PM Reporting Lab: [facility] [address] Performing Lab: [address] [facility] LD,TOTAL LACTATE DEHYDROGEN ASE [ENZYMATIC ACTIVITY/V OLUME] IN SERUM OR PLASMA BY LACTATE TO PYRUVATE REACTION 109 125 - 220 08/01 L Specimen Type: PLASMA No comment entered. Ordering Provider: XENIA SALGADO Report Released Date/Time: Jul 04, 2023 02:25 PM Reporting Lab: [facility] [address] Performing Lab: [facility] [address] [place] [facility] TSH W/REFLEX TO FREE T4 THYROTROPI N [UNITS/VOL UME] IN SERUM OR PLASMA 1.18 0.35 - 4.94 08/01 Specimen Type: PLASMA No comment entered. Ordering Provider: XENIA SALGADO Report Released Date/Time: Jul 04, 2023 02:25 PM Reporting Lab: [facility] [address] Performing Lab: [facility] [address] [facility] URIC ACID URATE [MASS/VOLU ME] IN SERUM OR PLASMA 6.9 3.5 - 7.2 08/01 Specimen Type: PLASMA No comment entered. Ordering Provider: XENIA SALGDAO Report Released Date/Time: Jul 04, 2023 02:25 PM Reporting Lab: [facility] [address] Performing Lab: [facility] [address] [facility] Vital Signs Combined list of inpatient and outpatient Vital Signs from Department of Defense and Veterans Affairs, ranging from 12 months to all on record, depending upon the facility. Vital Sign Value Date Comments Source SYSTOLIC BLOOD PRESSURE 139 08/01/2023 10:18:04 [facility] DIASTOLIC BLOOD PRESSURE 75 08/01/2023 10:18:04 [facility] PULSE OXIMETRY 96% 08/01/2023 [facility]18[facility] WEIGHT 213.3 08/01/2023 10:18:04 [place] [facility] BMI 34kg/m2 08/01/2023 10:18:04 [place] [facility] PAIN 0 08/01/2023 10:18:04 [place] [facility] TEMPERATURE 97.7 08/01/2023 10:18:04 [place] [facility] PULSE 97 08/01/2023 10:18:04 [place] [facility] RESPIRATION 80 08/01/2023 10:18:04 [place] [facility] SYSTOLIC BLOOD PRESSURE 100 07/04/2023 13:35:54 [facility] DIASTOLIC BLOOD PRESSURE 63 07/04/2023 13:35:54 [facility] PULSE OXIMETRY 93% 07/04/2023 13:35:54 [place] [facility] WEIGHT 208.4 07/04/2023 13:35:54 [place] [facility] BMI 34kg/m2 07/04/2023 13:35:54 [place] [facility] PAIN 0 07/04/2023 13:35:54 [place] [facility] TEMPERATURE 96.8 07/04/2023 13:35:54 [place] [facility] PULSE 100 07/04/2023 13:35:54 [place] [facility] RESPIRATION 18 07/04/2023 13:35:54 [facility] SYSTOLIC BLOOD PRESSURE 118 06/05/2023 12:50:44 [place] [...] ([facility]) SYSTOLIC BLOOD PRESSURE 135 05/07/2023 14:10:43 [facility] DIASTOLIC BLOOD PRESSURE 72 05/07/2023 14:10:43 [facility] PULSE OXIMETRY 98% 05/07/2023 14:10:43 [facility] WEIGHT 215.1 05/07/2023 14:10:43 [facility] BMI 35kg/m2 05/07/2023 14:10:43 [facility] PAIN 0 05/07/2023 14:10:43 [facility] HEIGHT 66 05/07/2023 14:10:43 [facility] TEMPERATURE 98.1 05/07/2023 14:10:43 [facility]CS PULSE 101 05/07/2023 14:10:43 [facility] RESPIRATION 20 05/07/2023 14:10:43 [facility] SYSTOLIC BLOOD PRESSURE 113 04/10/2023 14:44:48 [facility] [...] Encounters Combined list of: 1) Encounters from [facility] facilities going back up to thelast 18 months. 2) Encounters from the Department of [facility] facilities going back up to 280 months. Location Location Details Encounter Type Encounter Number Reason For Visit Attending Provider ADM Date DC Date Status Disposition Source [facility] Outpatient Encounter [id number] LISA SALGADO 02/10 [facility] Outpatient Encounter [id number] 02/22 [facility] PRO PHONE CALL 21-30 MIN [id number] Diagnos is: ICD-10- CM E11.9 Type 2 diabete s mellitu s without complic ations< br/> CECILIO SMITH A 03/06 [facility] Outpatient Encounter [id number] Diagnos is: ICD-10- CM C90.00 Multipl e myeloma not having achieve d remissi on
LISA SALGADO 03/07 [facility] PRO PHONE CALL 5-10 MIN [id number] Diagnos is: ICD-10- CM C90.00 Multipl e myeloma not having achieve d remissi on
GABRIELA LOPEZ 03/09 [facility] Outpatient Encounter [id number] LISA SALGADO 03/09 [facility] ([facility]) OFFICE O/P EST MOD 30-39 MIN [id number] Diagnos is: ICD-10- CM Z00.00 Encntr for general adult medical exam w/o abnorma l finding s
CHEY SHELBYMireya NEDRA K 03/30 [place] [facility] ([facility]) [facility] Outpatient Encounter [id number] Diagnos is: ICD-10- CM C90.00 Multipl e myeloma not having achieve d remissi on
FRID,LISA CID Breanna 04/07 [facility] Outpatient Encounter [id number] FRID,LISA JOSE ROBERTO Carlos 04/07 [facility] PRO PHONE CALL 5-10 MIN [id number] Diagnos is: ICD-10- CM C90.00 Multipl e myeloma not having achieve d remissi on
GABRIELA LOPEZ 04/28 [facility] Outpatient Encounter [id number] Diagnos is: ICD-10- CM C90.00 Multipl e myeloma not having achieve d remissi on
FRID,LISA CID Breanna 05/09 [facility] Outpatient Encounter [id number] FRIDLISA JOSE ROBERTO Carlos 05/09 [facility] Outpatient Encounter [id number] 05/11 [facility] Outpatient Encounter [id number] Diagnos is: ICD-10- CM C90.00 Multipl e myeloma not having achieve d remissi on
FRID,LISA JOSE ROBERTO Carlos 05/30 [facility] Outpatient Encounter [id number] 06/05 [facility] QNHP OL DIG ASSMT&MGMT 5-10 [id number] Diagnos is: ICD-10- CM E11.9 Type 2 diabete s mellitu s without complic ations< br/> LUISCECILIO A 06/05 [facility] Outpatient Encounter [id number] FRID,LISA CID Breanna 06/05 [facility] Outpatient Encounter [id number] Diagnos is: ICD-10- CM C90.00 Multipl e myeloma not having achieve d remissi on
FRID,LISA JOSE ROBERTO Carlos 06/27 [facility] Outpatient Encounter [id number] FRID,LISA CID Breanna 06/28 [facility] Outpatient Encounter [id number] 06/29 [facility] ([facility]) ADM SARSCV2 BVL 30MCG/.3ML B [id number] Diagnos is: ICD-10- CM Z23 Encount er for immuniz ation<b r/> AMINATA ARIZA 07/19 [facility] ([facility]) [facility] OFFICE O/P EST HI 40-54 MIN [id number] Diagnos is: ICD-10- CM C90.00 Multipl e myeloma not having achieve d remissi on
FRID,LISA JOSE ROBERTO Carlos 07/26 [facility] Outpatient Encounter [id number] FRID,LISA JOSE ROBERTO Carlos 07/26 [facility] Outpatient Encounter [id number] Diagnos is: ICD-10- CM C90.00 Multipl e myeloma not having achieve d remissi on
FRID,LISA JOSE ROBERTO Carlos 08/25 [facility] Outpatient Encounter [id number] FRID,LISA CID Breanna 08/25 [place] [facility] [place] [facility] Outpatient Encounter [id number] Diagnos is: ICD-10- CM C90.00 Multipl e myeloma not having achieve d remissi on
FRID,LISA CID Breanna 09/22 [place] [facility] Outpatient Encounter [id number] FRID,LISA CID Breanna 09/26 [place] [facility] Outpatient Encounter [id number] 09/27 [place] [facility] Outpatient Encounter [id number] Diagnos is: ICD-10- CM C90.00 Multipl e myeloma not having achieve d remissi on
FRID,LISA JOSE ROBERTO Carlos 10/20 [facility] Outpatient Encounter [id number] FRID,LISA CID Breanna 10/24 [facility] Outpatient Encounter [id number] Diagnos is: ICD-10- CM C90.00 Multipl e myeloma not having achieve d remissi on
FRID,LISA JOSE ROBERTO Carlos 11/14 [facility] Outpatient Encounter [id number] ETELVINA MCCORMICK 11/21 [place] [facility] Outpatient Encounter [id number] Diagnos is: ICD-10- CM C90.00 Multipl e myeloma not having achieve d remissi on
FRID,LISA JOSE ROBERTO Carlos 12/12 [facility] Outpatient Encounter [id number] FRID,LISA JOSE ROBERTO Carlos 12/19 [facility] OFFICE O/P EST HI 40-54 MIN [id number] Diagnos is: ICD-10- CM C90.00 Multipl e myeloma not having achieve d remissi on
STEVEN RAGSDALE 01/10 [facility] Outpatient Encounter [id number] 01/11 [place] [facility] [place] [facility] Outpatient Encounter [id number] FRID,LISA JOSE ROBERTO Carlos 01/12 [facility] [place] [facility] Outpatient Encounter [id number] Diagnos is: ICD-10- CM C90.00 Multipl e myeloma not having achieve d remissi on
FRID,LISA JOSE ROBERTO Carlos 02/09 [facility] Outpatient Encounter [id number] FRID,LISA JOSE ROBERTO Carlos 02/13 [facility] Outpatient Encounter [id number] Diagnos is: ICD-10- CM C90.00 Multipl e myeloma not having achieve d remissi on
FRID,LISA JOSE ROBERTO Carlos 03/09 [facility] Outpatient Encounter [id number] FRID,LISA JOSE ROBERTO Carlos 03/09 [facility] Outpatient Encounter [id number] 03/19 [facility] Outpatient Encounter [id number] 04/10 [facility] ([facility]) OFFICE O/P EST HI 40-54 MIN [id number] Diagnos is: ICD-10- CM J44.1 Chronic obstruc tive pulmona ry disease w (acute) exacerb ation<b r/> KAIT SHELBY 04/10 [facility] ([facility]) [facility] Outpatient Encounter [id number] Diagnos is: ICD-10- CM C90.00 Multipl e myeloma not having achieve d remissi on
FRID,LISA Carlos 04/13 [facility] Outpatient Encounter [id number] FRID,LISA Carlos 04/17 [facility] OFFICE O/P EST HI 40-54 MIN [id number] Diagnos is: ICD-10- CM C90.00 Multipl e myeloma not having achieve d remissi on
FRID,LISA Carlos 05/07 [facility] Outpatient Encounter [id number] 05/07 [facility] Outpatient Encounter [id number] FRID,LISA Carlos 05/10 [facility] Outpatient Encounter [id number] 05/25 [facility] ([facility]) [facility] FEE [id number] Diagnos is: ICD-10- CM C90.00 Multipl e myeloma not having achieve d remissi on
FRID,LISA Carlos 06/05 [place] [facility] ([facility]) [facility] OFFICE O/P EST MOD 30-39 MIN [id number] Diagnos is: ICD-10- CM C90.00 Multipl e myeloma not having achieve d remissi on
FRID,LISA Carlos 06/05 [facility] Outpatient Encounter [id number] FRID,LISA Carlos 06/07 [facility] ([facility]) IMMUNIZATI ON ADMIN [id number] Diagnos is: ICD-10- CM Z23 Encount er for immuniz ation<b r/> RODGER KILPATRICK 06/11 [place] [facility] ([facility] [place] [facility] Outpatient Encounter [id number] 06/21 [place] [facility] [place] [facility] Outpatient Encounter [id number] OLYAHORACE Perez 06/30 [place] [facility] OFFICE O/P EST HI 40-54 MIN [id number] Diagnos is: ICD-10- CM C90.00 Multipl e myeloma not having achieve d remissi on
FRID,LISA TIE L 07[facility]04 [facility] [place] [facility] Outpatient Encounter [id number] NAOMI,LISA TIE L 07/04 [facility] Outpatient Encounter [id number] Diagnos is: ICD-10- CM N18.9 Chronic kidney disease , unspeci fied
JYOTI GREER Y 07/04 [facility] OFF[facility] O/P EST HI 40 MIN [id number] Diagnos is: ICD-10- CM C90.00 Multipl e myeloma not having achieve d remissi on
FRID,LISA TIE L 08/01 [facility] Outpatient Encounter [id number] Diagnos is: ICD-10- CM N18.9 Chronic kidney disease , unspeci fied
JYOTI GREER Y 08/01 [facility] Outpatient Encounter [id number] FRID,LISA CID L 08/01 [facility] Social History Combined list of available smoking, tobacco, and other social history from Department of Defense and [facility] Affairs facilities. Social History Type Response Date Comment Sourc e Tobacco smoking status [facility] FORMER USER 04/10/2023 [place] ([facility]) History of tobacco use VA-TOBACCO QUIT 5 TO < 15 YRS 04/10/2023 [place] ([facility]) History of tobacco use VA-TOBACCO FORMER USER 03/30/2022 [place] ([facility]) History of tobacco use VA-TOBACCO FORMER USER 03/30/2021 [place] ([facility]) History of tobacco use VA-TOBACCO FORMER USER 03/16/2020 [place] ([facility]) History of tobacco use VA-TOBACCO QUIT 5 TO < 15 YRS 08/22/2018 [place] ([facility]) History of tobacco use FORMER TOBACCO US ER 7Y OR GREATER 01/24/2018 [place] ([facility]) History of tobacco use FORMER TOBACCO US E >1Y <7Y 03/15/2017 [place] ([facility]) History of tobacco use FORMER TOBACCO US E >1Y <7Y 11/16/2015 [place] ([facility]) History of tobacco use FORMER TOBACCO US E >1Y <7Y 02/12/2015 [place] ([facility]) History of tobacco use FORMER TOBACCO US E >1Y <7Y 02/12/2014 [place] ([facility]) History of tobacco use FORMER TOBACCO US E >1Y <7Y 01/02/2013 [place] ([facility]) History of tobacco use FORMER TOBACCO US E >1Y <7Y 03/27/2011 [place] ([facility]) History of tobacco use FORMER TOBACCO USE <1Y 04/14/2010 [place] ([facility]) History of tobacco use FORMER TOBACCO USE <1Y 06/15/2009 [place] ([facility]) History of tobacco use FORMER TOBACCO USE <1Y 05/28/2008 [place] ([facility]) Plan of Care List of future care activities from [facility]. Additional future care activities may be listed in the Assessment and Plan section. Date/Time Care Activity Care Activity Detail Facili ty 08/29/2023 [facility] - NONE [facility] - NONE [facility]
--- OUTSIDE RECORDS SUMMARY | 2023-08-11 07:38 | XMS_ITS | Clinical Summary ---
Author Name Unknown Organization [facility] Address [place], [place] [address] Care Team Providers Care Ela Teacher Name Role Phone [place] Primary Care Provider [phone] Allergies No known active allergies Medications Medication [...] 9:26 AM 01/28/2015 3:59 PM Care Teams Ela Teacher Relationship Specialty Start Date End Date [place] [address] [employer] [place] [id number] PCP - General 01/15/20
--- OUTSIDE RECORDS SUMMARY | 2023-08-11 07:38 | XMS_ITS | Continuity of Care Document ---
Author Name [facility] Organization [facility] Care Team Providers Care Psychiatric Np Name Role Phone [facility] Unavailable Unavailable Problems Combined list of problems from Department of Defense and Veterans Affairs facilities. It does not include entries that were removed or entered in error. Problem Status Onset Date Problem Type Date of Resolution Comments Source Anemia (SCT 355290606) Active Condition [facility] ([facility]) Cataract Active Condition [facility] ([facility]) Chronic kidney disease stage 3 Active Condition [facility] (OC) COPD - Chronic Obstructive Pulmonary Disease (SCT 64212356) Active Condition [facility] ([facility]) Diabetes Mellitus Type 2 (SCT 42770548) Active Condition [facility] ([facility]) Hyperlipidemia ([facility] [id number]) Active Condition [facility] (OC) Low back pain Active Condition Aug Entered By: CHANDLER CARVER Comment: CT Chest (06/03/2018) showed T12 myeloma lesion and bilateral ribs [facility] (OC) Myeloma Active Condition Aug 22 Entered By: CHANDLER CARVER Comment: Plasma Cell Myeloma (Dx 03/2018) [facility] Seasonal allergy Active Condition [facility] ([facility]) Diagnosis: ICD-10-CM N18.9 Chronic kidney disease, unspecified Active Diagnosis [facility] Diagnosis: ICD-10-CM C90.00 Multiple myeloma not having achieved remission Active Diagnosis [facility] Diagnosis: ICD-10-CM Z23 Encounter for immunization Active Diagnosis [facility] ([facility]) Diagnosis: ICD-10-CM J44.1 Chronic obstructive pulmonary disease w (acute) exacerbation Active Diagnosis [facility] ([facility]) Diagnosis: ICD-10-CM E11.9 Type 2 diabetes mellitus without complications Active Diagnosis [facility] Diagnosis: ICD-10-CM Z00.00 Encntr for general adult [...] - SHAKE WELL INHALA TION ACTIVE 11/15/2023 [id number] 3 FRID,CHRI STIE L 2022 [place] [facility] ALBUTEROL 90MCG/ACTUA T (CFC-F) INHL,ORAL,8 .5GM DOSE COUNTER INHALE 2 PUFFS BY INHALATI ON EVERY 4-6 HOURS NEEDED FOR IMMEDIAT E RELIEF OF SHORTNES S OF BREATH - SHAKE WELL INHALA TION DISCONT INUED 09/15/2022 [id number] 2 CHEY SHELBY K 2021 [facility]) ALBUTEROL/I PRATROPIUM SOLN,INHL INHALE 3 ML ALBUTERO L 2.5% SOLUTION IN NEBULIZE R BY INHALATI ON TWICE A DAY NEEDED INHALA TION ACTIVE CHEY SHELBY K 2021 [facility]) ALLOPURINOL 100MG TAB TAKE ONE-HALF TABLET BY MOUTH EVERY DAY ELEVATED URIC ACID ORALLY DISCONT INUED 11/15/2023 [id number] 3 FRID,CHRI STIE L 20[facility] ALLOPURINOL 100MG TAB TAKE 50MG BY MOUTH EVERY DAY ELEVATED URIC ACID ORALLY DISCONT INUED (EDIT) 11/15/2023 [id number] 3 [facility] ASCORBIC ACID TAB TAKE EVERY DAY ACTIVE MERI MORENO 2017 [facility] ASPIRIN 81MG TAB,EC TAKE ONE TABLET BY MOUTH EVERY DAY ORALLY ACTIVE MARK YORK 2007 [facility]) CHOLECALCIF PAPI 25MCG (1,000UNIT) TAB TAKE ONE TABLET BY MOUTH EVERY DAY ORALLY ACTIVE JENNIFER CARVER 2017 [facility] CYANOCOBALA MIN 1000MCG TAB TAKE ONE TABLET BY MOUTH EVERY DAY ORALLY ACTIVE 04/10/2024 [id number] 3 BROWN,CHEY NDA K 2022 [facility] CYANOCOBALA MIN 1000MCG TAB TAKE ONE TABLET BY MOUTH EVERY DAY ORALLY DISCONT INUED 04/08/2023 [id number] 3 FRID,CHRI STIE L 2021 [place] [facility] DEXAMETHASO NE 4MG TAB TAKE FIVE TABLETS BY MOUTH EVERY WEEK WITH FOOD OR MILK. THIS IS A COMPONEN T OF A CHEMOTHE RAPY REGIMEN. ORALLY ACTIVE 08/31/2023 [id number] FRID,CHRI STIE L 2023 [facility] [facility] DEXAMETHASO NE 4MG TAB TAKE FIVE TABLETS BY MOUTH EVERY WEEK WITH FOOD OR MILK. THIS IS A COMPONEN T OF A CHEMOTHE RAPY REGIMEN. ORALLY DISCONT INUED 08/03/2023 [id number] 3 FRID,CHRI STIE L 2022 [facility] DEXAMETHASO NE 4MG TAB TAKE FIVE TABLETS BY MOUTH EVERY WEEK WITH FOOD OR MILK. THIS IS A COMPONEN T OF A CHEMOTHE RAPY REGIMEN. ORALLY DISCONT INUED 07/07/2023 [id number] 3 FRID,CHRI STIE L 2022 [facility] DEXAMETHASO NE 4MG TAB TAKE FIVE TABLETS BY MOUTH ONCE A WEEK WITH FOOD OR MILK. THIS IS A COMPONEN T OF A CHEMOTHE RAPY REGIMEN. ORALLY DISCONT INUED 06/09/2023 [id number] 3 FRID,CHRI STIE L 2022 [facility] DEXAMETHASO NE 4MG TAB TAKE FIVE TABLETS BY MOUTH ONCE A WEEK WITH FOOD OR MILK. THIS IS A COMPONEN T OF A CHEMOTHE RAPY REGIMEN. ORALLY DISCONT INUED 05/17/2023 [id number] 3 FRID,CHRI STIE L 2022 [facility] DEXAMETHASO NE 4MG TAB TAKE FIVE TABLETS BY MOUTH EVERY WEEK WITH FOOD OR MILK. THIS IS A COMPONEN T OF A CHEMOTHE RAPY REGIMEN. ORALLY DISCONT INUED 03/15/2023 [id number] 3 FRID,CHRI STIE L 2022 [facility] DEXAMETHASO NE 4MG TAB TAKE FIVE TABLETS BY MOUTH EVERY WEEK WITH FOOD OR MILK. THIS IS A COMPONEN T OF A CHEMOTHE RAPY REGIMEN. ORALLY DISCONT INUED 01/18/2023 [id number] 3 FRID,CHRI STIE L 2022 [facility] DEXAMETHASO NE 4MG TAB TAKE FIVE TABLETS BY MOUTH EVERY WEEK WITH FOOD OR MILK. THIS IS A COMPONEN T OF A CHEMOTHE RAPY REGIMEN. ORALLY DISCONT INUED 12/21/2022 [id number] 3 BLISS,RAY HELLE L 2022 [place] [facility] DEXAMETHASO NE 4MG TAB TAKE FIVE TABLETS BY MOUTH EVERY WEEK WITH FOOD OR MILK. THIS IS A COMPONEN T OF A CHEMOTHE RAPY REGIMEN. ORALLY DISCONT INUED 11/23/2022 [id number] 3 FRID,CHRI STIE L 2022 [place] [facility] DEXAMETHASO NE 4MG TAB TAKE FIVE TABLETS MOUTH EVERY WEEK WITH FOOD OR MILK. THIS IS A COMPONEN T OF A CHEMOTHE RAPY REGIMEN. ORALLY DISCONT INUED 10/26/2022 [id number] 3 FRID,CHRI STIE L 2022 [facility] DEXAMETHASO NE 4MG TAB TAKE FIVE TABLETS BY MOUTH EVERY WEEK WITH FOOD OR MILK. THIS IS A COMPONEN T OF A CHEMOTHE RAPY REGIMEN. ORALLY DISCONT INUED 08/25/2022 [id number] 3 FRID,CHRI STIE L 2022 [facility] DEXAMETHASO NE 4MG TAB TAKE FIVE TABLETS BY MOUTH EVERY WEEK WITH FOOD OR MILK. THIS IS A COMPONEN T OF A CHEMOTHE RAPY REGIMEN. ORALLY DISCONT INUED 07/28/2022 [id number] 2 FRID,CHRI STIE L 2021 [facility] [facility] DEXAMETHASO NE 4MG TAB TAKE FIVE TABLETS BY MOUTH EVERY WEEK WITH FOOD OR MILK. THIS IS A COMPONEN T OF A CHEMOTHE RAPY REGIMEN. ORALLY DISCONT INUED 07/05/2022 [id number] 2 FRID,CHRI STIE L 2021 [place] [facility] DEXAMETHASO NE 4MG TAB TAKE FIVE TABLETS BY MOUTH EVERY WEEK WITH FOOD OR MILK. THIS IS A COMPONEN T OF A CHEMOTHE RAPY REGIMEN. ORALLY 04/08/2023 [id number] 3 FRID,CHRI STIE L 2022 [place] [facility] DEXAMETHASO NE 4MG TAB TAKE FIVE TABLETS BY MOUTH EVERY WEEK WITH FOOD OR MILK. THIS IS A COMPONEN T OF A CHEMOTHE RAPY REGIMEN. ORALLY 02/11/2023 [id number] 3 FRID,CHRI STIE L 2022 [place] [facility] DEXAMETHASO NE 4MG TAB TAKE FIVE TABLETS BY MOUTH EVERY WEEK WITH FOOD OR MILK. THIS IS A COMPONEN T OF A CHEMOTHE RAPY REGIMEN. ORALLY 09/24/2022 [id number] 3 FRID,CHRI STIE L 2022 [place] [facility] DOXYCYCLINE HYCLATE 50MG CAP TAKE 2 CAPSULES BY MOUTH TWICE A DAY ORALLY ACTIVE CHEY SHELBY K 2022 [facility] EMPAGLIFLOZ IN 25MG TAB TAKE ONE-HALF TABLET BY MOUTH EVERY MORNING FOR DIABETES AND KIDNEY ORALLY ACTIVE 03/19/2024 [id number] 3 [facility] 2022 [place] [facility] EMPAGLIFLOZ IN 25MG TAB TAKE ONE-HALF TABLET BY MOUTH EVERY MORNING FOR DIABETES AND KIDNEY ORALLY DISCONT INUED 03/07/2023 [id number] 3 [facility] 2021 [facility] FISH OIL 1000MG (500MG DHA/EPA) CAP,ORAL TAKE 1 CAPSULE BY MOUTH TWICE A DAY ORALLY ACTIVE MARK YORK 2007 [facility]) GLIPIZIDE 10MG TAB TAKE ONE TABLET BY MOUTH TWICE A DAY 30 MINUTES BEFORE MEAL FOR DIABETES ORALLY ACTIVE 12/22/2023 [id number] 4 CHEY SHELBY K 2022 [facility] GLIPIZIDE 10MG TAB TAKE ONE TABLET BY MOUTH TWICE A DAY 30 MINUTES BEFORE MEAL FOR DIABETES ORALLY DISCONT INUED 10/19/2022 [id number] 3 CHEY SHELBY NDA K 2021 [facility] LENALIDOMID E 10MG CAP,ORAL TAKE ONE CAPSULE BY MOUTH EVERY DAY FOR 21 DAYS THEN 7 DAYS OFF. TAKE WITH A GLASS OF WATER*DO CUMENTAT ION ONLY-[facility] * ORALLY ACTIVE 08/31/2023 [id number] 4 FRID,[facility] SAE Carlos 2023 [facility] LENALIDOMID E 10MG CAP,ORAL TAKE ONE CAPSULE BY MOUTH EVERY DAY FOR 21 DAYS THEN 7 DAYS OFF. TAKE WITH A GLASS OF WATER*DO CUMENTAT ION ONLY-[facility] * ORALLY DISCONT INUED 08/03/2023 [id number] 4 FRID,HEMA Carlos 2023 [facility] LENALIDOMID E 10MG CAP,ORAL TAKE ONE CAPSULE BY MOUTH EVERY DAY FOR 21 DAYS THEN 7 DAYS OFF. TAKE WITH A GLASS OF WATER*DO CUMENTAT ION ONLY-[facility] * ORALLY DISCONT INUED 07/07/2023 [id number] 3 FRID,HEMA Carlos 2022 [facility] LENALIDOMID E 10MG CAP,ORAL TAKE ONE CAPSULE BY MOUTH EVERY DAY FOR 21 DAYS THEN 7 DAYS OFF. TAKE WITH A GLASS OF WATER. [facility] MAILS TO PATIENT ORALLY DISCONT INUED 06/09/2023 [id number] 3 [facility] LENALIDOMID E 10MG CAP,ORAL TAKE ONE CAPSULE BY MOUTH EVERY DAY FOR 21 DAYS AND THEN 7 DAYS OFF*TAKE WITH A GLASS OF WATER--D OCUMENTA TION ONLY--DANITZA ILED TO PATIENT BY [facility] ORALLY DISCONT INUED 05/17/2023 [id number] 3 FRID,HEMA Carlos 2022 [place] [facility] LENALIDOMID E 10MG CAP,ORAL TAKE ONE CAPSULE BY MOUTH EVERY DAY FOR 21 DAYS THEN 7 DAYS OFF. SWALLOW WHOLE WITH WATER*FO R DOCUMENT ATION ONLY-[facility] [employer] [facility] ORALLY DISCONT INUED 03/15/2023 [id number] 3 [facility] 2022 [place] [facility] LENALIDOMID E 10MG CAP,ORAL TAKE ONE CAPSULE BY MOUTH EVERY DAY FOR 21 DAYS AND THEN 7 DAYS OFF. SWALLOW WHOLE WITH WATER *FOR DOCUMENT ATION ONLY - FILLED BY [employer] [facility] * ORALLY DISCONT INUED 01/18/2023 [id number] 3 FRID,HEMA Carlos 2022 [place] [facility] LENALIDOMID E 10MG CAP,ORAL TAKE ONE CAPSULE BY MOUTH EVERY DAY FOR 21 DAYS AND THEN 7 DAYS OFF. SWALLOW WHOLE WITH WATER *FOR DOCUMENT ATION ONLY - FILLED BY [employer] [facility] * ORALLY DISCONT INUED 12/21/2022 [id number] 3 [place],[facility] 2022 [place] [facility] LENALIDOMID E 10MG CAP,ORAL TAKE ONE CAPSULE BY MOUTH EVERY DAY FOR 21 DAYS AND THEN 7 DAYS OFF. SWALLOW WHOLE WITH WATER*FO R DOCUMENT ATION ONLY-KAV[facility] [employer] [facility] * ORALLY DISCONT INUED 11/23/2022 [id number] 3 FRID,HEMA Carlos 2022 [place] [facility] LENALIDOMID E 10MG CAP,ORAL TAKE ONE CAPSULE BY MOUTH EVERY DAY FOR 21 DAYS AND THEN 7 DAYS OFF. SWALLOW WHOLE WITH WATER *FOR DOCUMENT ATION ONLY - FILLED BY [employer] [facility] * ORALLY DISCONT INUED 10/26/2022 [id number] 3 FRID,HEMA Carlos 2022 [place] [facility] LENALIDOMID E 10MG CAP,ORAL TAKE ONE CAPSULE BY MOUTH EVERY DAY FOR 21 DAYS THEN 7 DAYS OFF *TAKE WITH A GLASS OF WATER--D OCUMENTA TION ONLY--DANITZA ILED TO PATIENT BY [facility] ORALLY DISCONT INUED 08/25/2022 [id number] 3 FRID,CHRBeth Carlos 2022 [place] [facility] LENALIDOMID E 10MG CAP,ORAL TAKE ONE CAPSULE BY MOUTH EVERY DAY FOR 21 DAYS THEN 7 DAYS OFF *TAKE WITH A GLASS OF WATER--D OCUMENTA TION ONLY--MA ILED TO PATIENT BY [facility] ORALLY DISCONT INUED 07/28/2022 [id number] 2 FRID,CHRI STIMarlyn Carlos 2021 [place] [facility] LENALIDOMID E 10MG CAP,ORAL TAKE ONE CAPSULE BY MOUTH EVERY DAY FOR 21 DAYS THEN 7 DAYS OFF *TAKE WITH A GLASS OF WATER--D OCUMENTA TION ONLY--MA ILED TO PATIENT BY [facility] ORALLY DISCONT INUED 07/05/2022 [id number] 2 FRID,HEMA Carlos 2021 [place] [facility] LENALIDOMID E 10MG CAP,ORAL TAKE ONE CAPSULE BY MOUTH EVERY DAY FOR 21 DAYS THEN 7 DAYS OFF-DOCU MENTATIO N ONLY-ANKITA [facility] ORALLY DISCONT INUED 06/08/2022 [id number] 2 FRID,HEMA Carlos 2021 [place] [facility] LENALIDOMID E 10MG CAP,ORAL TAKE ONE CAPSULE BY MOUTH EVERY DAY FOR 21 DAYS AND THEN 7 DAYS OFF. SWALLOW WHOLE WITH WATER *FOR DOCUMENT ATION ONLY - FILLED BY [facility] * ORALLY 04/08/2023 [id number] 3 FRID,CHRI SAE Carlos 2022 [place] [facility] LENALIDOMID E 10MG CAP,ORAL TAKE ONE CAPSULE BY MOUTH EVERY DAY FOR 21 DAYS AND THEN 7 DAYS OFF. SWALLOW WHOLE WITH WATER *FOR DOCUMENT ATION ONLY - FILLED BY [facility] * ORALLY 02/11/2023 [id number] 3 FRID,CHRI SAE Carlos 2022 [place] [facility] LENALIDOMID E 10MG CAP,ORAL TAKE ONE CAPSULE BY MOUTH EVERY DAY FOR 21 DAYS AND THEN 7 DAYS OFF. SWALLOW WHOLE WITH WATER *FOR DOCUMENT ATION ONLY - FILLED BY [facility] * ORALLY 09/24/2022 [id number] 3 FRID,CHRI STIE L 2022 [facility] LORATADINE 10MG TAB TAKE ONE TABLET BY MOUTH PRN ORALLY ACTIVE KWABENA ANGEL 2010 [facility] MAGNESIUM OXIDE 420MG TAB TAKE ONE TABLET BY MOUTH TWICE A DAY FOR LOW MAGNESIU M ORALLY ACTIVE 09/23/2023 [id number] 3 FRID,CHRI STIE L 2022 [facility] MAGNESIUM OXIDE 420MG TAB TAKE ONE TABLET BY MOUTH TWICE A DAY FOR LOW MAGNESIU M ORALLY DISCONT INUED 11/09/2022 [id number] 3 FRID,CHRI STIE L 2021 [facility] METFORMIN HCL 1000MG TAB TAKE ONE TABLET BY MOUTH EVERY DAY TO DECREASE BLOOD SUGAR ORALLY ACTIVE 04/10/2024 [id number] 3 CHEY SHELBY 2022 [facility] METFORMIN HCL 1000MG TAB TAKE ONE TABLET BY MOUTH EVERY DAY TO DECREASE BLOOD SUGAR ORALLY DISCONT INUED 04/03/2023 [id number] 3 CHEY SHELBY 2021 [facility] MOMETASONE FUROATE 100MCG/ACTU AT INHL,ORAL,1 20D,13GM INHALE 2 PUFFS BY MOUTH TWICE A DAY FOR COPD INHALA TION ORAL ACTIVE 04/10/2024 [id number] 3 CHEY SHELBY 2022 [facility]) MOMETASONE FUROATE 100MCG/ACTU AT INHL,ORAL,1 20D,13GM INHALE 2 PUFFS BY MOUTH TWICE A DAY RINSE MOUTH AFTER USING ORALLY 09/15/2022 [id number] 3 CHEY SHELBY 2021 [facility] MULTIVITAMI NS CAP/TAB TAKE ONE TABLET BY MOUTH EVERY DAY ORALLY ACTIVE Sirisha SANTIAGO 2015 [facility]) NYSTATIN [id number] L SUSP,ORAL TAKE 1 TEASPOON FUL BY MOUTH FOUR TIMES A DAY FOR INTERMIT TENT THRUSH * MAKE SURE YOU SWISH AND THEN SWALLOW* ORALLY ACTIVE 03/09/2024 [id number] 3 FRID,CHRI STIE L 2022 [facility] OLODATEROL 2.5MCG/TIOT ROPIUM 2.5MCG/ACTU AT INHL,ORAL,6 0D,4GM INHALE 2 PUFFS BY INHALATI ON EVERY DAY TO PREVENT TROUBLE BREATHIN G INHALA TION ACTIVE 04/10/2024 [id number] 4 CHEY SHELBY MARKA K 2022 [facility]) OLODATEROL 2.5MCG/TIOT ROPIUM 2.5MCG/ACTU AT INHL,ORAL,6 0D,4GM INHALE 2 PUFFS BY INHALATI ON EVERY DAY TO PREVENT TROUBLE BREATHIN G INHALA TION DISCONT INUED 04/03/2023 [id number] 3 CHEY SHELBY NDDarío K 2021 [facility]) PHOSPHORUS 250MG/POTAS SIUM 280MG/SODIU M 160MG/PKT PWDR TAKE 1 PACKET BY MOUTH TWICE A DAY *MIX PACKET WITH 2.5 ML OF WATER OR JUICE. STIR WELL AND DRINK PROMPTLY ORALLY SUSPEND ED 07/17/2024 [id number] 4 FRID,CHRI STIE L 2023 [facility] PHOSPHORUS 250MG/POTAS SIUM 280MG/SODIU M 160MG/PKT PWDR TAKE 1 PACKET BY MOUTH TWICE A DAY *MIX PACKET WITH 2.5 ML OF WATER OR JUICE. STIR WELL AND DRINK PROMPTLY ORALLY DISCONT INUED 04/08/2023 [id number] 3 FRID,CHRI STIE L 2021 [facility] PROCHLORPER AZINE MALEATE 10MG TAB TAKE ONE TABLET BY MOUTH EVERY 6 HOURS NEEDED FOR NAUSEA AND VOMITING . DO NOT TAKE MORE THAN 40 MG PER DAY. ORALLY HOLD 11/22/2023 [id number] RAY MCCORMICK L 2022 [facility] PROCHLORPER AZINE MALEATE 10MG TAB TAKE ONE TABLET BY MOUTH EVERY 6 HOURS NEEDED FOR NAUSEA AND VOMITING . DO NOT TAKE MORE THAN 40 MG PER DAY. ORALLY 11/13/2022 [id number] HEMA SALGADO 2021 [facility] Allergies, Adverse Reactions, Alerts Combined list of allergies from Department of [facility] and [facility] facilities. It does not include entries that were removed or entered in error. Substance Category Reaction Severity Reaction type Status Date Reported Comments Source ATORVASTATIN Propensity to adverse reactions to drug (finding) Pain in lower limb active 6 [facility] SIMVASTATIN Propensity to adverse reactions to drug (finding) Muscle pain active 6 [facility] Immunizations Combined list of available immunizations from the Department of [facility] and [facility] facilities. Immunization Series Date Given Administered By Site Reaction Lot Number CVX Code Drug Executive Producer Promos Status Comments Source COVID-19 ([place]), MRNA, LNP-S, PF, ANGE-SUCROSE, 30 MCG/0.3 ML (AGES 12+ YEARS) 1 2022 Kaleb BARRERA LEFT DELTO ID [id number] 309 complet ed upper left deltoid [facility]) ZOSTER RECOMBINANT 2 2022 Kaleb BARRERA LEFT DELTO ID [id number] 187 complet ed DILUENT LOT#[id number] , exp. 01/13/2024 given in upper left deltoid. [facility] INFLUENZA, HIGH-DOSE, QUADRIVALENT 2022 Kaleb BARRERA LEFT DELTO ID [id number] A 197 complet ed [facility]) ZOSTER RECOMBINANT 1 2022 Kaleb BARRERA LEFT DELTO ID [id number] 187 complet ed DILUENT LOT# [id number] [facility]) COVID-19 ([place]), MRNA, LNP-S, BIVALENT BOOSTER, PF, 30 MCG/0.3 ML DOSE 1 2022 SETH ARIZA LEFT DELTO ID [id number] 300 complet ed [facility] INFLUENZA VACCINE, QUADRIVALENT, ADJUVANTED 2021 205 complet ed [facility] COVID-19 ([place]), MRNA, LNP-S, PF, 30 MCG/0.3 ML DOSE, ANGE-SUCROSE (AGES 12+ YEARS) 2021 217 complet ed [facility] TDAP 2020 115 complet ed [facility] COVID-19 (PFIZER), MRNA, LNP-S, PF, 30 MCG/0.3 ML DOSE 3 2020 208 complet ed PFR; [id number]; 1 [facility] INFLUENZA, INJECTABLE, QUADRIVALENT, PRESERVATIVE FREE 2020 150 complet ed [facility] COVID-19 ([place]), MRNA, LNP-S, PF, 30 MCG/0.3 ML DOSE 2 2020 208 complet ed PFR; [id number]; 1 [facility] COVID-19 ([facility]), MRNA, LNP-S, PF, 30 MCG/0.3 ML DOSE 1 2020 208 complet ed PFR; [id number]; 1 [facility] INFLUENZA, INJECTABLE, QUADRIVALENT, PRESERVATIVE FREE 2019 150 complet ed [facility] INFLUENZA, SEASONAL, INJECTABLE, PRESERVATIVE FREE 2018 140 complet ed [facility] INFLUENZA, SEASONAL, INJECTABLE, PRESERVATIVE FREE 2017 140 complet ed [facility] INFLUENZA, HIGH DOSE SEASONAL 2016 135 complet ed [facility] TDAP 2016 115 complet ed gsk, [id number], 02-22-2019 [facility] INFLUENZA, HIGH DOSE SEASONAL 2014 135 complet ed [facility] PNEUMOCOCCAL CONJUGATE PCV 13 2014 133 complet ed [facility] [employer] Lot #[id number] Exp. 07/2016 [facility] PNEUMOCOCCAL, UNSPECIFIED FORMULATION 2012 109 complet ed merk and co [id number] [facility] ZOSTER LIVE 2011 121 [...] POLYSACCHARID E [id number] 2007 33 complet ed [facility] ZOSTER LIVE 2007 121 complet ed [facility] INFLUENZA, SEASONAL, INJECTABLE, PRESERVATIVE FREE 2006 140 complet ed [facility] TDAP 2006 115 complet ed Before Surgery for hernia [facility] PNEUMOCOCCAL, UNSPECIFIED FORMULATION 2006 109 complet ed [facility] TD (ADULT), 2 LF TETANUS TOXOID, PRESERVATIVE FREE, ADSORBED 2005 09 complet ed [facility] INFLUENZA, SEASONAL, INJECTABLE 1995 141 complet ed [facility] TD (ADULT), 2 LF TETANUS TOXOID, PRESERVATIVE FREE, ADSORBED 1991 09 complet ed [facility] Results Combined list of recent chemistry, [...] Jul 05, 2023 11:16 AM Reporting Lab: [facility] [id number] Performing Lab: [facility] [id number] [facility] ALBUMIN/ CREATINI NE RATIO URINE MICROALBUM IN/CREATIN INE [MASS RATIO] IN URINE 23.5 <29.9 - 29.9 08/01 Specimen Type: URINE No comment entered. Ordering Provider: JYOTI GREER Report Released Date/Time: Jul 05, 2023 11:16 AM Reporting Lab: [facility] [address] Performing Lab: [facility] [address] [facility] ALBUMIN/ CREATINI NE RATIO URINE MICROALBUM IN [MASS/VOLU ME] IN URINE 16.4 <29.9 - 29.9 08/01 Specimen Type: URINE No comment entered. Ordering Provider: JYOTI GREER Report Released Date/Time: Jul 05, 2023 11:16 AM Reporting Lab: [facility] [address] Performing Lab: [facility] [address] [facility] ELP/IMMF IX,URINE RANDOM PANEL PROTEIN [MASS/VOLU ME] IN URINE 12.5 <14.0 - 14.0 08/01 Specimen Type: URINE Comment: Urine immunotypin g performed. No monoclonal proteins identified. Ordering Provider: JYOTI GREER Report Released Date/Time: Jul 05, 2023 11:16 AM Reporting Lab: [facility] [address] Performing Lab: [facility] [address] [facility]IM[facility],URINE RANDOM PANEL IMMUNOFIXA TION FOR URINE NO MONOCLON ALS DETECTED 08/01 Specimen Type: URINE Comment: Urine immunotypin g performed. No monoclonal proteins identified. Ordering Provider: JYOTI GREER Report Released Date/Time: Jul 05, 2023 11:16 AM Reporting Lab: [facility] [address] Performing Lab: [facility] [address] [facility] PROTEIN/ CREATINI NE RATIO URINE PROTEIN/CR EATININE [MASS RATIO] IN URINE 0.18 <0.19 - 0.19 08/01 Specimen Type: URINE No comment entered. Ordering Provider: JYOTI GREER Report Released Date/Time: Jul 05, 2023 11:16 AM Reporting Lab: [facility] [phone] Performing Lab: [facility] [address] [facility] PROTEIN/ CREATINI NE RATIO URINE CREATININE [MASS/VOLU ME] IN URINE 69.1 58.0 - 161.0 08/01 Specimen Type: URINE No comment entered. Ordering Provider: JYOTI GREER Report Released Date/Time: Jul 05, 2023 11:16 AM Reporting Lab: [facility] [address] Performing Lab: [facility] [address] [place] [facility] PROTEIN/ CREATINI NE RATIO URINE PROTEIN [MASS/VOLU ME] IN URINE 12.5 <14.0 - 14.0 08/01 Specimen Type: URINE No comment entered. Ordering Provider: JYOTI GREER Report Released Date/Time: Jul 05, 2023 11:16 AM Reporting Lab: [facility] [id number] Performing Lab: [facility] [address] [place] [facility] URINALYS IS COLOR OF URINE LIGHT-YE LLOW 08/01 Specimen Type: URINE No comment entered. Ordering Provider: JYOTI GREER Report Released Date/Time: Jul 05, 2023 11:16 AM Reporting Lab: [facility] [address] Performing Lab: [facility] [address] [place] [facility] URINALYS IS SPECIFIC GRAVITY OF URINE 1.027 1.003 - 1.035 08/01 Specimen Type: URINE No comment entered. Ordering Provider: JYOTI GREER Report Released Date/Time: Jul 05, 2023 11:16 AM Reporting Lab: [facility] [phone] Performing Lab: [facility] [address] [place] [facility] URINALYS IS BILIRUBIN. TOTAL [PRESENCE] IN URINE BY TEST STRIP NEGATIVE 08/01 Specimen Type: URINE No comment entered. Ordering Provider: JYOTI GREER Report Released Date/Time: Jul 05, 2023 11:16 AM Reporting Lab: [facility] [phone] Performing Lab: [facility] [address] [place] [facility] URINALYS IS KETONES [MASS/VOLU ME] IN URINE BY TEST STRIP NEGATIVE 08/01 Specimen Type: URINE No comment entered. Ordering Provider: JYOTI GREER Report Released Date/Time: Jul 05, 2023 11:16 AM Reporting Lab: [facility] [phone] Performing Lab: [facility] [address] [place] [facility] URINALYS IS GLUCOSE [MASS/VOLU ME] IN URINE BY TEST STRIP >1000 08/01 Specimen Type: URINE No comment entered. Ordering Provider: JYOTI GREER Report Released Date/Time: Jul 05, 2023 11:16 AM Reporting Lab: [facility] [phone] Performing Lab: [facility] [address] [place] [facility] URINALYS IS PROTEIN [MASS/VOLU ME] IN URINE BY TEST STRIP NEGATIVE 08/01 Specimen Type: URINE No comment entered. Ordering Provider: JYOTI GREER Report Released Date/Time: Jul 05, 2023 11:16 AM Reporting Lab: [facility] [address] Performing Lab: [facility] [address] [place] [facility] URINALYS IS PH OF URINE BY TEST STRIP 5.0 5.0 - 8.0 08/01 Specimen Type: URINE No comment entered. Ordering Provider: JYOTI GREER Report Released Date/Time: Jul 05, 2023 11:16 AM Reporting Lab: [facility] [address] Performing Lab: [facility] [address] [place] [facility] URINALYS IS LEUKOCYTES [#/AREA] IN URINE SEDIMENT BY MICROSCOPY HIGH POWER FIELD 1 0 - 7 08/01 Specimen Type: URINE No comment entered. Ordering Provider: JYOTI GREER Report Released Date/Time: Jul 05, 2023 11:16 AM Reporting Lab: [facility] [address] Performing Lab: [facility] [address] [place] [facility] URINALYS IS BACTERIA [PRESENCE] IN URINE SEDIMENT BY LIGHT MICROSCOPY NONE SEEN 08/01 Specimen Type: URINE No comment entered. Ordering Provider: JYOTI GREER Report Released Date/Time: Jul 05, 2023 11:16 AM Reporting Lab: [facility] [address] Performing Lab: [facility] [address] [place] [facility] URINALYS IS ERYTHROCYT ES [#/AREA] IN URINE SEDIMENT BY MICROSCOPY HIGH POWER FIELD <1 0 - 3 08/01 Specimen Type: URINE No comment entered. Ordering Provider: JYOTI GREER Report Released Date/Time: Jul 05, 2023 11:16 AM Reporting Lab: [facility] [address] Performing Lab: [facility] [address] [place] [facility] URINALYS IS APPEARANCE OF URINE CLEAR 08/01 Specimen Type: URINE No comment entered. Ordering Provider: JYOTI GREER Report Released Date/Time: Jul 05, 2023 11:16 AM Reporting Lab: [facility] [address] Performing Lab: [facility] [address] [place] [facility] URINALYS IS EPITHELIAL CELLS.SQUA MOUS [#/AREA] IN URINE SEDIMENT BY MICROSCOPY HIGH POWER FIELD NONE SEEN 08/01 Specimen Type: URINE No comment entered. Ordering Provider: JYOTI GREER Report Released Date/Time: Jul 05, 2023 11:16 AM Reporting Lab: [facility] [address] Performing Lab: [facility] [address] [place] [facility] URINALYS IS HEMOGLOBIN [PRESENCE] IN URINE BY TEST STRIP TRACE 08/01 Specimen Type: URINE No comment entered. Ordering Provider: JYOTI GREER Report Released Date/Time: Jul 05, 2023 11:16 AM Reporting Lab: [facility] [address] Performing Lab: [facility] [address] [place] [facility] URINALYS IS NITRITE [PRESENCE] IN URINE BY TEST STRIP NEGATIVE 08/01 Specimen Type: URINE No comment entered. Ordering Provider: JYOTI GREER Report Released Date/Time: Jul 05, 2023 11:16 AM Reporting Lab: [facility] [address] Performing Lab: [facility] [address] [place] [facility] URINALYS IS LEUKOCYTE ESTERASE [PRESENCE] IN URINE BY TEST STRIP NEGATIVE 08/01 Specimen Type: URINE No comment entered. Ordering Provider: JYOTI GREER Report Released Date/Time: Jul 05, 2023 11:16 AM Reporting Lab: [facility] [address] Performing Lab: [facility] [address] [place] [facility] ELP/IMMF IX,SERUM PANEL PROTEIN [MASS/VOLU ME] IN SERUM OR PLASMA 6.0 6.0 - 8.3 08/01 Specimen Type: SERUM Comment: IM FIX ADDED - Band(s) present. See Identificat ion in report. Peak(s) too small to quantitate. Ordering Provider: XENIA SALGADO Report Released Date/Time: Jul 04, 2023 02:25 PM Reporting Lab: [facility] [address] Performing Lab: [facility] [address] [place] [facility] ELP/IMMF IX,SERUM PANEL IMMUNOFIXA TION FOR SERUM OR PLASMA IgA lambda 08/01 Specimen Type: SERUM Comment: IM FIX ADDED - Band(s) present. See Identificat ion in report. Peak(s) too small to quantitate. Ordering Provider: XENIA SALGADO Report Released Date/Time: Jul 04, 2023 02:25 PM Reporting Lab: [facility] [address] Performing Lab: [facility] [address] [facility] ELP/IMMF IX,SERUM PANEL ALBUMIN [MASS/VOLU ME] IN SERUM OR PLASMA BY ELECTROPHO RESIS 3.98 3.66 - 4.78 08/01 Specimen Type: SERUM Comment: IM FIX ADDED - Band(s) present. See Identificat ion in report. Peak(s) too small to quantitate. Ordering Provider: XENIA SALGADO Report Released Date/Time: Jul 04, 2023 02:25 PM Reporting Lab: [facility] [address] Performing Lab: [facility] [address] [place] [facility] ELP/IMMF IX,SERUM PANEL ALPHA 1 GLOBULIN [MASS/VOLU ME] IN SERUM OR PLASMA BY ELECTROPHO RESIS 0.28 0.14 - 0.38 08/01 Specimen Type: SERUM Comment: IM FIX ADDED - Band(s) present. See Identificat ion in report. Peak(s) too small to quantitate. Ordering Provider: XENIA SALGADO Report Released Date/Time: Jul 04, 2023 02:25 PM Reporting Lab: [facility] [address] Performing Lab: [place] [address] [place] [facility] ELP/IMMF IX,SERUM PANEL ALPHA 2 GLOBULIN [MASS/VOLU ME] IN SERUM OR PLASMA BY ELECTROPHO RESIS 0.74 0.50 - 0.90 08/01 Specimen Type: SERUM Comment: IM FIX ADDED - Band(s) present. See Identificat ion in report. Peak(s) too small to quantitate. Ordering Provider: XENIA SALGADO Report Released Date/Time: Jul 04, 2023 02:25 PM Reporting Lab: [facility] [address] Performing Lab: [place] [address] [place] [facility] ELP/IMMF IX,SERUM PANEL BETA 1 GLOBULIN [MASS/VOLU ME] IN SERUM OR PLASMA BY ELECTROPHO RESIS 0.43 0.33 - 0.55 08/01 Specimen Type: SERUM Comment: IM FIX ADDED - Band(s) present. See Identificat ion in report. Peak(s) too small to quantitate. Ordering Provider: XENIA SALGADO Report Released Date/Time: Jul 04, 2023 02:25 PM Reporting Lab: [facility] [address] Performing Lab: [facility] [address] [place] [facility] ELP/IMMF IX,SERUM PANEL BETA 2 GLOBULIN [MASS/VOLU ME] IN SERUM OR PLASMA BY ELECTROPHO RESIS 0.25 0.20 - 0.52 08/01 Specimen Type: SERUM Comment: IM FIX ADDED - Band(s) present. See Identificat ion in report. Peak(s) too small to quantitate. Ordering Provider: XENIA SALGADO Report Released Date/Time: Jul 04, 2023 02:25 PM Reporting Lab: [facility] [address] Performing Lab: [place] [id number] [place] [facility] ELP/IMMF IX,SERUM PANEL GAMMA GLOBULIN [MASS/VOLU ME] IN SERUM OR PLASMA BY ELECTROPHO RESIS 0.33 0.58 - 1.72 08/01 L Specimen Type: SERUM Comment: IM FIX ADDED - Band(s) present. See Identificat ion in report. Peak(s) too small to quantitate. Ordering Provider: XENIA SALGADO Report Released Date/Time: Jul 04, 2023 02:25 PM Reporting Lab: [facility] [address] Performing Lab: [place] [address] [facility] ELP/IMMF IX,SERUM PANEL PROTEIN [MASS/VOLU ME] IN SERUM OR PLASMA 6.0 6.0 - 8.3 08/01 Specimen Type: SERUM Comment: IM FIX ADDED - Band(s) present. See Identificat ion in report. Peak(s) too small to quantitate. Ordering Provider: XENIA SALGADO Report Released Date/Time: Jul 04, 2023 02:25 PM Reporting Lab: [facility] [address] Performing Lab: [facility] [address] [facility] ELP/IMMF IX,SERUM PANEL IMMUNOELEC TROPHORESI S FOR SERUM OR PLASMA [place] 08/01 Specimen Type: SERUM Comment: IM FIX ADDED - Band(s) present. See Identificat ion in report. Peak(s) too small to quantitate. Ordering Provider: XENIA SALGADO Report Released Date/Time: Jul 04, 2023 02:25 PM Reporting Lab: [facility] [address] Performing Lab: [facility] [address] [facility] KAPPA/LA MBDA LC FREE,RAT IO [...] therapy of these disorders. Test Performed by [facility], [address] [place], [place] Robert Swift M.D., Ph.D., Director of Laboratorie s , CLIA [id number] Ordering Provider: XENIA SALGADO Report Released Date/Time: Jul 04, 2023 02:25 PM Reporting Lab: [facility] [address] Performing Lab: [address] [place] [facility] KAPPA/LA MBDA LC FREE,RAT IO LAMBDA [...] therapy of these disorders. Test Performed by [facility], [address] [place], [place] Robert Swift M.D., Ph.D., Director of Laboratorie s , CLIA [id number] Ordering Provider: XENIA SALGADO Report Released Date/Time: Jul 04, 2023 02:25 PM Reporting Lab: [facility] [address] Performing Lab: [address] [place] [facility] KAPPA/LA MBDA LC FREE,RAT IO KAPPA [...] therapy of these disorders. Test Performed by [facility], [employer] [facility], [address] [place] [address] Robert Swift M.D., Ph.D., Director of Laboratorie s , CLIA [id number] Ordering Provider: XENIA SALGADO Report Released Date/Time: Jul 04, 2023 02:25 PM Reporting Lab: [facility] [address] Performing Lab: [address] [facility] LD,TOTAL LACTATE DEHYDROGEN ASE [ENZYMATIC ACTIVITY/V OLUME] IN SERUM OR PLASMA BY LACTATE TO PYRUVATE REACTION 109 125 - 220 08/01 L Specimen Type: PLASMA No comment entered. Ordering Provider: XENIA SALGADO Report Released Date/Time: Jul 04, 2023 02:25 PM Reporting Lab: [facility] [address] Performing Lab: [facility] [address] [place] [facility] TSH W/REFLEX TO FREE T4 THYROTROPI N [UNITS/VOL UME] IN SERUM OR PLASMA 1.18 0.35 - 4.94 08/01 Specimen Type: PLASMA No comment entered. Ordering Provider: XENIA SALGADO Report Released Date/Time: Jul 04, 2023 02:25 PM Reporting Lab: [facility] [address] Performing Lab: [facility] [address] [facility] URIC ACID URATE [MASS/VOLU ME] IN SERUM OR PLASMA 6.9 3.5 - 7.2 08/01 Specimen Type: PLASMA No comment entered. Ordering Provider: XENIA SALGADO Report Released Date/Time: Jul 04, 2023 02:25 PM Reporting Lab: [facility] [address] Performing Lab: [facility] [address] [facility] Vital Signs Combined list of inpatient and outpatient Vital Signs from Department of Defense and Veterans Affairs, ranging from 12 months to all on record, depending upon the facility. Vital Sign Value Date Comments Source SYSTOLIC BLOOD PRESSURE 139 08/01/2023 10:18:04 [facility] DIASTOLIC BLOOD PRESSURE 75 08/01/2023 10:18:04 [facility] PULSE OXIMETRY 96% 08/01/2023 [facility] WEIGHT 213.3 08/01/2023 10:18:04 [place] [facility] BMI 34kg/m2 08/01/2023 10:18:04 [place] [facility] PAIN 0 08/01/2023 10:18:04 [place] [facility] TEMPERATURE 97.7 08/01/2023 10:18:04 [place] [facility] PULSE 97 08/01/2023 10:18:04 [place] [facility] RESPIRATION 80 08/01/2023 10:18:04 [place] [facility] SYSTOLIC BLOOD PRESSURE 100 07/04/2023 13:35:54 [facility] DIASTOLIC BLOOD PRESSURE 63 07/04/2023 13:35:54 [facility] PULSE OXIMETRY 93% 07/04/2023 13:35:54 [place] [facility] WEIGHT 208.4 07/04/2023 13:35:54 [place] [facility] BMI 34kg/m2 07/04/2023 13:35:54 [place] [facility] PAIN 0 07/04/2023 13:35:54 [place] [facility] TEMPERATURE 96.8 07/04/2023 13:35:54 [place] [facility] PULSE 100 07/04/2023 13:35:54 [place] [facility] RESPIRATION 18 07/04/2023 13:35:54 [facility] SYSTOLIC BLOOD PRESSURE 118 06/05/2023 12:50:44 [facility] [...] SYSTOLIC BLOOD PRESSURE 135 05/07/2023 14:10:43 [facility] DIASTOLIC BLOOD PRESSURE 72 05/07/2023 14:10:43 [facility] PULSE OXIMETRY 98% 05/07/2023 14:10:43 [facility] 215.1 05/07/2023 14[facility]10:43 [facility] BMI 35kg/m2 05/07/2023 14[facility]10:43 [facility] PAIN 0 05/07/2023 14:10:43 [facility] HEIGHT 66 05/07/2023 14:10:43 [facility] TEMPERATURE 98.1 05/07/2023 14:10:43 [facility] PULSE 101 05/07/2023 14:10:43 [facility] RESPIRATION 20 05/07/2023 14:10:43 [facility] SYSTOLIC BLOOD PRESSURE 113 04/10/2023 14:44:48 [...] Encounters Combined list of: 1) Encounters from [facility] facilities going back up to thelast 18 months. 2) Encounters from the Department of [facility] facilities going back up to 280 months. Location Location Details Encounter Type Encounter Number Reason For Visit Attending Provider ADM Date DC Date Status Disposition Source [facility] Outpatient Encounter [id number] LISA SALGADO 02/10 [facility] Outpatient Encounter [id number] 02/22 [facility] PRO PHONE CALL 21-30 MIN [id number] Diagnos is: ICD-10- CM E11.9 Type 2 diabete s mellitu s without complic ations< br/> CECILIO SMITH A 03/06 [facility] Outpatient Encounter [id number] Diagnos is: ICD-10- CM C90.00 Multipl e myeloma not having achieve d remissi on
LISA SALGADO 03/07 [facility] PRO PHONE CALL 5-10 MIN [id number] Diagnos is: ICD-10- CM C90.00 Multipl e myeloma not having achieve d remissi on
GABRIELA LOPEZ 03/09 [facility] Outpatient Encounter [id number] LISA SALGADO 03/09 [facility] ([facility]) OFFICE O/P EST MOD 30-39 MIN [id number] Diagnos is: ICD-10- CM Z00.00 Encntr for general adult medical exam w/o abnorma l finding s
CHEY SHELBYMireya NEDRA K 03/30 [place] [facility] Outpatient Encounter [id number] Diagnos is: ICD-10- CM C90.00 Multipl e myeloma not having achieve d remissi on
FRID,LISA CID Breanna 04/07 [facility] Outpatient Encounter [id number] FRID,LISA JOSE ROBERTO Carlos 04/07 [facility] IS [facility] PRO PHONE CALL 5-10 MIN [id number] Diagnos is: ICD-10- CM C90.00 Multipl e myeloma not having achieve d remissi on
GABRIELA LOPEZ 04/28 [facility] Outpatient Encounter [id number] Diagnos is: ICD-10- CM C90.00 Multipl e myeloma not having achieve d remissi on
FRID,LISA CID Breanna 05/09 [facility] Outpatient Encounter [id number] FRIDLISA JOSE ROBERTO Carlos 05/09 [facility] Outpatient Encounter [id number] 05/11 [facility] Outpatient Encounter [id number] Diagnos is: ICD-10- CM C90.00 Multipl e myeloma not having achieve d remissi on
FRID,LISA JOSE ROBERTO Carlos 05/30 [facility] Outpatient Encounter [id number] 06/05 [facility] QNHP OL DIG ASSMT&MGMT 5-10 [id number] Diagnos is: ICD-10- CM E11.9 Type 2 diabete s mellitu s without complic ations< br/> LUISCECILIO A 06/05 [facility] IS [facility] Outpatient Encounter [id number] FRID,LISA CID Breanna 06/05 [facility] Outpatient Encounter [id number] Diagnos is: ICD-10- CM C90.00 Multipl e myeloma not having achieve d remissi on
FRID,LISA JOSE ROBERTO Carlos 06/27 [facility] Outpatient Encounter [id number] FRID,LISA CID Breanna 06/28 [facility] Outpatient Encounter [id number] 06/29 [facility] ADM SARSCV2 BVL 30MCG/.3ML B [id number] Diagnos is: ICD-10- CM Z23 Encount er for immuniz ation<b r/> AMINATA ARIZA 07/19 [place] [facility] ([facility]) [facility] OFFICE O/P EST HI 40-54 MIN [id number] Diagnos is: ICD-10- CM C90.00 Multipl e myeloma not having achieve d remissi on
FRID,LISA JOSE ROBERTO Carlos 07/26 [facility] Outpatient Encounter [id number] FRID,LISA JOSE ROBERTO Carlos 07/26 [facility] Outpatient Encounter [id number] Diagnos is: ICD-10- CM C90.00 Multipl e myeloma not having achieve d remissi on
FRID,LISA JOSE ROBERTO Carlos 08/25 [facility] Outpatient Encounter [id number] FRID,LISA CID Breanna 08/25 [facility] [facility] [place] [facility] Outpatient Encounter [id number] Diagnos is: ICD-10- CM C90.00 Multipl e myeloma not having achieve d remissi on
FRID,LISA CID Breanna 09/22 [facility] Outpatient Encounter [id number] FRID,LISA CID Breanna 09/26 [facility] Outpatient Encounter [id number] 09/27 [facility] Outpatient Encounter [id number] Diagnos is: ICD-10- CM C90.00 Multipl e myeloma not having achieve d remissi on
FRID,LISA JOSE ROBERTO Carlos 10/20 [facility] Outpatient Encounter [id number] FRID,LISA CID Breanna 10/24 [facility] Outpatient Encounter [id number] Diagnos is: ICD-10- CM C90.00 Multipl e myeloma not having achieve d remissi on
FRID,LISA JOSE ROBERTO Carlos 11/14 [facility] Outpatient Encounter [id number] ETELVINA MCCORMICK 11/21 [facility] Outpatient Encounter [id number] Diagnos is: ICD-10- CM C90.00 Multipl e myeloma not having achieve d remissi on
FRID,LISA JOSE ROBERTO Carlos 12/12 [facility] Outpatient Encounter [id number] FRID,LISA JOSE ROBERTO Carlos 12/19 [facility] OFFICE O/P EST HI 40-54 MIN [id number] Diagnos is: ICD-10- CM C90.00 Multipl e myeloma not having achieve d remissi on
STEVEN RAGSDALE 01/10 [facility] Outpatient [facility]counter [id number] 01/11 [facility] [place] [facility] Outpatient Encounter [id number] FRID,LISA JOSE ROBERTO Carlos 01/12 [facility] [place] [facility] Outpatient Encounter [id number] Diagnos is: ICD-10- CM C90.00 Multipl e myeloma not having achieve d remissi on
FRID,LISA JOSE ROBERTO Carlos 02/09 [facility] Outpatient Encounter [id number] FRID,LISA JOSE ROBERTO Carlos 02/13 [facility] Outpatient Encounter [id number] Diagnos is: ICD-10- CM C90.00 Multipl e myeloma not having achieve d remissi on
FRID,LISA JOSE ROBERTO Carlos 03/09 [facility] Outpatient Encounter [id number] FRID,LISA JOSE ROBRETO Carlos 03/09 [facility] Outpatient Encounter [id number] 03/19 [facility] Outpatient Encounter [id number] 04/10 [facility] OFFICE O/P EST HI 40-54 MIN [id number] Diagnos is: ICD-10- CM J44.1 Chronic obstruc tive pulmona ry disease w (acute) exacerb ation<b r/> KAIT SHELBY 04/10 [facility] Outpatient Encounter [id number] Diagnos is: ICD-10- CM C90.00 Multipl e myeloma not having achieve d remissi on
FRID,LISA Carlos 04/13 [facility] Outpatient Encounter [id number] FRID,LISA Carlos 04/17 [facility] OFFICE O/P EST HI 40-54 MIN [id number] Diagnos is: ICD-10- CM C90.00 Multipl e myeloma not having achieve d remissi on
FRID,LISA Carlos 05/07 [facility] Outpatient Encounter [id number] 05/07 [facility] Outpatient Encounter [id number] FRID,LISA Carlos 05/10 [facility] Outpatient Encounter [id number] 05/25 [facility]LE[facility] FAC[facility] FEE [id number] Diagnos is: ICD-10- CM C90.00 Multipl e myeloma not having achieve d remissi on
FRID,LISA Carlos 06/05 [facility] OFFICE O/P EST MOD 30-39 MIN [id number] Diagnos is: ICD-10- CM C90.00 Multipl e myeloma not having achieve d remissi on
FRID,LISA Carlos 06/05 [facility] Outpatient Encounter [id number] FRID,LISA Carlos 06/07 [facility] ([facility]) IMMUNIZATI ON ADMIN [id number] Diagnos is: ICD-10- CM Z23 Encount er for immuniz ation<b r/> RODGER KILPATRICK 06/11 [facility] [place] [facility] Outpatient Encounter [id number] 06/21 [place] [facility] [place] [facility] Outpatient Encounter [id number] OLYAHORACE Perez 06/30 [place] [facility] OFFICE O/P EST HI 40-54 MIN [id number] Diagnos is: ICD-10- CM C90.00 Multipl e myeloma not having achieve d remissi on
FRID,LISA TIE L 07/04 [facility] [place] [facility] Outpatient Encounter [id number] NAOMI,LISA TIE L 07/04 [facility] Outpatient Encounter [id number] Diagnos is: ICD-10- CM N18.9 Chronic kidney disease , unspeci fied
JYOTI GREER Y 07/04 [facility] OFFICE O/P EST HI 40 MIN [id number] [phone] Diagnos is: ICD-10- CM C90.00 Multipl e myeloma not having achieve d remissi on
FRID,LISA TIE L 08[facility]01 [facility] Outpatient Encounter [id number] Diagnos is: ICD-10- CM N18.9 Chronic kidney disease , unspeci fied
JYOTI GREER Y 08/01 [facility] Outpatient Encounter [phone] FRID,LISA CID L 08/01 [facility] Social History Combined list of available smoking, tobacco, and other social history from [facility] of Defense and [facility] facilities. Social History Type Response Date Comment Sourc e Tobacco smoking status [facility] VA-TOBACCO FORMER USER 04/10/2023 [facility] ([facility]) History of tobacco use VA-TOBACCO QUIT 5 TO < 15 YRS 04/10/2023 [facility] ([facility]) History of tobacco use VA-TOBACCO FORMER USER 03/30/2022 [facility] ([facility]) History of tobacco use VA-TOBACCO FORMER USER 03/30/2021 [facility]) History of tobacco use VA-TOBACCO FORMER USER 03/16/2020 [facility]) History of tobacco use VA-TOBACCO QUIT 5 TO < 15 YRS 08/22/2018 [facility]) History of tobacco use FORMER TOBACCO US ER 7Y OR GREATER 01/24/2018 [facility]) History of tobacco use FORMER TOBACCO US E >1Y <7Y 03/15/2017 [facility]) History of tobacco use FORMER TOBACCO US E >1Y <7Y 11/16/2015 [facility]) History of tobacco use FORMER TOBACCO US E >1Y <7Y 02/12/2015 [facility]) History of tobacco use FORMER TOBACCO US E >1Y <7Y 02/12/2014 [facility]) History of tobacco use FORMER TOBACCO US E >1Y <7Y 01/02/2013 [facility]) History of tobacco use FORMER TOBACCO US E >1Y <7Y 03/27/2011 [facility]) History of tobacco use FORMER TOBACCO USE <1Y 04/14/2010 [facility]) History of tobacco use FORMER TOBACCO USE <1Y 06/15/2009 [facility]) History of tobacco use FORMER TOBACCO USE <1Y 05/28/2008 [facility] ([facility]) Plan of Care List of future care activities from [facility] of Veterans Affairs facilities. Additional future care activities may be listed in the Assessment and Plan section. Date/Time Care Activity Care Activity Detail Facili ty 08/29/2023 AMBULATORY - NONE AM[facility]ORY - NONE [facility]
[2023-08-11 07:41] LABS: Chloride* 109 mmol/L (96-114); Sodium* 138 mmol/L (135-149)
[2023-08-11 07:42] LABS: Potassium* 3.8 mmol/L (3.6-5.1)
[2023-08-11 07:44] LABS: Anion Gap 14 mEq/L (7-15); Carbon Dioxide* 15 mmol/L (20-32); Creatinine* 1.5 mg/dL (0.5-1.5); Est. Creatinine Clearance* 39.17; Estimated Glomerular Filt Rate 48 ml/min
[2023-08-11 07:45] LABS: Blood Urea Nitrogen* 23 mg/dL (7-30); Calcium* 8.6 mg/dL (8.4-10.6); Glucose* 99 mg/dL (60-115)
[2023-08-11 07:47] LABS: D Dimer Quantitative* 0.49 ug/ml (0.00-0.50)
[2023-08-11 07:52] LABS: PCR FLU A Negative PCR FLU A (Negative); PCR FLU B POSITIVE PCR FLU B (Negative); PCR RSV Negative PCR RSV (Negative); SARS PCR* Negative SARS-CoV-2 (Negative)
[2023-08-11] MEDS: IPRAT-ALBUT 0.5-2.5 MG/3 ML NEB 1 NEB IH (07:56)
[2023-08-11 07:59] LABS: Troponin I* < 0.01 ng/mL (0.01-0.04)
[2023-08-11 08:00] VITALS: BP 141/76; PULSE 104; RESP 21; O2SAT 96
[2023-08-11 08:05] VITALS: BP 141/76; PULSE 105; RESP 31; O2SAT 95
--- NOTE | 2023-08-11 08:05 | ED.NURSE ---
Finished the neb and feels a little better and given some water to drink.
[2023-08-11] MEDS: ALBUTEROL SULFATE 2.5 MG/3 ML VIAL.NEB NEB (08:29)
[2023-08-11] MEDS: predniSONE 20 MG TABLET 40 MG PO (08:29)
[2023-08-11 08:30] VITALS: BP 153/77; PULSE 107; O2SAT 96
[2023-08-11 09:00] VITALS: PULSE 118; RESP 26; O2SAT 97
--- NOTE | 2023-08-11 09:07 | ED.NURSE ---
walked the patient around the unit with the pulse ox on and was consistant at 91% and when rested in the room so patient could catch breath noted to be on 86% on room air but would recover to mid 90% with rest. updated Dr. Piña and is talking with patient.
== END 2023-08-11 09:39 | disposition home or self-care (01) ==
PROVIDERS: Internal Medicine; Emergency Provider Emergency Medicine; PCP Nurse Practitioner Family
DX: J10.1 Influenza due to other identified influenza virus with other respiratory manifestations (principal); J44.1 Chronic obstructive pulmonary disease with (acute) exacerbation
CPT/HCPCS: 36415; 71046; 80048; 84484; 85025; 85379; 87631; 93005; 94640; 99283; 99284; J7512

== ENCOUNTER 2024-06-08 10:09 | Emergency (ER) | payer OTHER, SELFPAY ==
[2024-06-08 10:17] VITALS: BP 122/79; PULSE 114; RESP 22; TEMP 36.8; O2SAT 92
[2024-06-08 10:42] VITALS: O2SAT 92
--- NOTE | 2024-06-08 10:42 | CRLHL7_ITS ---
For Patients: As a result of the Century Cures Act, medical imaging exams and procedure reports are released immediately into your electronic medical record. You may view this report before your referring provider. If you have questions, please contact your health care provider. INDICATION: Shortness of breath Comparison 08/16/2023 TECHNIQUE: Two view chest. FINDINGS: The lungs are clear. The heart, mediastinum and pulmonary vessels are of normal size. Left basilar probable atelectasis scarring. Rib deformity along the right lateral chest. IMPRESSION: Negative chest. Dictated by Indira Walter MD @ 06/08/2024 11:49:54 AM (Electronically Signed)
--- OUTSIDE RECORDS SUMMARY | 2024-06-08 10:48 | XMS_ITS | Continuity of Care Document ---
Author Name [facility] Organization [facility] Care Team Providers Care Automatic Steel Tie Adjuster Name Role Phone [facility] Unavailable Unavailable Problems Combined list of problems from Department of Defense and Veterans Affairs facilities. It does not include entries that were removed or entered in error. Problem Status Onset Date Problem Type Date of Resolution Comments Source Anemia (SCT 644210614) Active Condition [facility] ([facility]) Cataract Active Condition [facility] ([facility]) Chronic kidney disease stage 3 Active Condition [facility] ([facility]) COPD - Chronic Obstructive Pulmonary Disease (SCT 44818408) Active Condition [facility] ([facility]) Diabetes Mellitus Type 2 (SCT 46380760) Active Condition [facility] ([facility]) Gout Active Condition [facility] ([facility]) Hyperlipidemia (SCT 90335190) Active Condition [facility] ([facility]) Low back pain Active Condition Aug Entered By: CHANDLER CARVER Comment: CT Chest (06/03/2018) showed T12 myeloma lesion and bilateral ribs [facility] ([facility]) Myeloma Active Condition Aug 22 Entered By: CHANDLER CARVER Comment: Plasma Cell Myeloma (Dx 03/2018) [facility] Seasonal allergy Active Condition [facility] ([facility]) Diagnosis: ICD-10-CM C90.00 Multiple myeloma not having achieved remission Active Diagnosis [facility] Diagnosis: ICD-10-CM Z00.00 Encntr for general adult medical exam w/o abnormal findings Active Diagnosis [facility] ([facility]) Diagnosis: ICD-10-CM Z51.11 Encounter for antineoplastic chemotherapy Active Diagnosis [facility] Diagnosis: ICD-10-CM J44.9 Chronic obstructive pulmonary disease, unspecified Active Diagnosis [facility] Diagnosis: ICD-10-CM E11.9 Type 2 diabetes mellitus without complications Active Diagnosis [facility] ([facility]) Diagnosis: ICD-10-CM N18.9 Chronic kidney disease, unspecified Active Diagnosis [facility] Diagnosis: ICD-10-CM Z23 Encounter for immunization Active Diagnosis [facility] ([facility]) Diagnosis: ICD-10-CM J44.1 Chronic obstructive pulmonary disease w (acute) exacerbation Active Diagnosis [facility] ([facility]) Medications Combined list of outpatient medications from Department of Defense and Veterans Affairs facilities.Medications provided include 1) outpatient medications from the last 15 months, and 2) patient-reported medications. Medication Details Route Status Patient Instructions Prescription Expires Prescription Number Last Dispense Date Ordering Provider Order Date Order Qty Source ALBUTEROL 90MCG/ACTUA T (CFC-F) INHL,ORAL,8 .5GM DOSE COUNTER INHALE 2 PUFFS BY INHALATI ON EVERY 4-6 HOURS NEEDED FOR IMMEDIAT E RELIEF OF SHORTNES S OF BREATH - SHAKE WELL RESPIR ATORY (INHAL ATION) ACTIVE 01/17/2025 [id number] 4 FRID,CHRI STIE L 2023 2 [facility] ALBUTEROL/I PRATROPIUM SOLN,INHL INHALE 3 ML ALBUTERO L 2.5% SOLUTION IN NEBULIZE R BY INHALATI ON TWICE A DAY NEEDED RESPIR ATORY (INHAL ATION) ACTIVE CHEY SHELBY 2021 [facility]) ASCORBIC ACID TAB TAKE EVERY DAY ACTIVE MERI MORENO 2017 [facility] ASPIRIN 81MG TAB,EC TAKE ONE TABLET BY MOUTH EVERY DAY ORAL ACTIVE MARK YORK 2007 [facility]) CETIRIZINE HCL 10MG TAB TAKE ONE TABLET BY MOUTH AT BEDTIME NEEDED FOR ALLERGIE S ORAL ACTIVE 12/19/2024 [id number] FRID,HEMA STIE L 2023 30 [facility] CHOLECALCIF PAPI 25MCG (1,000UNIT) TAB TAKE ONE TABLET BY MOUTH EVERY DAY ORAL ACTIVE JENNIFER CARVER N 2017 [facility]) CYANOCOBALA MIN 1000MCG TAB TAKE ONE TABLET BY MOUTH EVERY DAY ORAL ACTIVE 04/23/2025 [id number] 4 CHEY SHELBY 2023 100 [facility] CYANOCOBALA MIN 1000MCG TAB TAKE ONE TABLET BY MOUTH EVERY DAY ORAL DISCONT INUED 04/10/2024 [id number] 4 CHEY SHELBY 2022 100 [facility] DEXAMETHASO NE 4MG TAB TAKE FIVE TABLETS BY MOUTH ONCE WEEKLY WITH FOOD OR MILK. THIS IS A COMPONEN T OF A CHEMOTHE RAPY REGIMEN. ORAL ACTIVE 06/12/2024 [id number] 4 Shilpa FITZGERALD 2023 20 [facility] DEXAMETHASO NE 4MG TAB TAKE FIVE TABLETS BY MOUTH ONCE WEEKLY WITH FOOD OR MILK. THIS IS A COMPONEN T OF A CHEMOTHE RAPY REGIMEN. ORAL DISCONT INUED 04/12/2024 [id number] 4 FRID,CHRI STIE L 2023 20 [facility] DEXAMETHASO NE 4MG TAB TAKE FIVE TABLETS BY MOUTH ONCE WEEKLY WITH FOOD OR MILK. THIS IS A COMPONEN T OF A CHEMOTHE RAPY REGIMEN. ORAL DISCONT INUED 03/15/2024 [id number] 4 Shilpa FITZGERALD 2023 20 [facility] DEXAMETHASO NE 4MG TAB TAKE FIVE TABLETS BY MOUTH ONCE WEEKLY WITH FOOD OR MILK. THIS IS A COMPONEN T OF A CHEMOTHE RAPY REGIMEN. ORAL DISCONT INUED 02/16/2024 [id number] 4 Shilpa FITZGERALD 2023 20 [facility] DEXAMETHASO NE 4MG TAB TAKE FIVE TABLETS BY MOUTH ONCE WEEKLY WITH FOOD OR MILK. THIS IS A COMPONEN T OF A CHEMOTHE RAPY REGIMEN. ORAL DISCONT INUED 01/19/2024 [id number] FRID,CHRI STIE L 2023 20 [facility] DEXAMETHASO NE 4MG TAB TAKE FIVE TABLETS BY MOUTH ONCE A WEEK WITH FOOD OR MILK. THIS IS A COMPONEN T OF A CHEMOTHE RAPY REGIMEN. ORAL DISCONT INUED 12/22/2023 [id number] 4 Shilpa FITZGERALD 2023 20 [facility] DEXAMETHASO NE 4MG TAB TAKE FIVE TABLETS BY MOUTH EVERY WEEK WITH FOOD OR MILK. THIS IS A COMPONEN T OF A CHEMOTHE RAPY REGIMEN. ORAL DISCONT INUED 11/24/2023 [id number] 4 FRID,CHRI STIE L 2023 20 [facility] DEXAMETHASO NE 4MG TAB TAKE FIVE TABLETS BY MOUTH EVERY WEEK WITH FOOD OR MILK. THIS IS A COMPONEN T OF A CHEMOTHE RAPY REGIMEN. ORAL DISCONT INUED 10/27/2023 [id number] 4 FRID,CHRI STIE L 2023 20 [facility] DEXAMETHASO NE 4MG TAB TAKE FIVE TABLETS BY MOUTH EVERY WEEK WITH FOOD OR MILK. THIS IS A COMPONEN T OF A CHEMOTHE RAPY REGIMEN. ORAL DISCONT INUED 09/29/2023 [id number] FRID,CHRI STIE L 2023 20 [facility] DEXAMETHASO NE 4MG TAB TAKE FIVE TABLETS BY MOUTH EVERY WEEK WITH FOOD OR MILK. THIS IS A COMPONEN T OF A CHEMOTHE RAPY REGIMEN. ORAL DISCONT INUED 08/31/2023 [id number] 4 FRID,CHRI STIE L 2023 20 [facility] DEXAMETHASO NE 4MG TAB TAKE FIVE TABLETS BY MOUTH EVERY WEEK WITH FOOD OR MILK. THIS IS A COMPONEN T OF A CHEMOTHE RAPY REGIMEN. ORAL DISCONT INUED 08/03/2023 [id number] 3 FRID,CHRI STIE L 2022 20 [facility] DEXAMETHASO NE 4MG TAB TAKE FIVE TABLETS BY MOUTH EVERY WEEK WITH FOOD OR MILK. THIS IS A COMPONEN T OF A CHEMOTHE RAPY REGIMEN. ORAL DISCONT INUED 07/07/2023 [id number] 3 FRID,CHRI STIE L 2022 20 [facility] DEXAMETHASO NE 4MG TAB TAKE FIVE TABLETS BY MOUTH ONCE A WEEK WITH FOOD OR MILK. THIS IS A COMPONEN T OF A CHEMOTHE RAPY REGIMEN. ORAL DISCONT INUED 06/09/2023 [id number] FRID,CHRI STIE L 2022 20 [facility] DEXAMETHASO NE 4MG TAB TAKE FIVE TABLETS BY MOUTH ONCE A WEEK WITH FOOD OR MILK. THIS IS A COMPONEN T OF A CHEMOTHE RAPY REGIMEN. ORAL DISCONT INUED 05/17/2023 [id number] 3 FRID,CHRI STIE L 2022 20 [facility] DEXAMETHASO NE 4MG TAB TAKE FIVE TABLETS BY MOUTH ONCE WEEKLY WITH FOOD OR MILK. THIS IS A COMPONEN T OF A CHEMOTHE RAPY REGIMEN. ORAL 05/11/2024 [id number] 4 Shilpa FITZGERALD 2023 20 [place] [facility] DEXAMETHASO NE 4MG TAB TAKE FIVE TABLETS BY MOUTH EVERY WEEK WITH FOOD OR MILK. THIS IS A COMPONEN T OF A CHEMOTHE RAPY REGIMEN. ORAL 04/08/2023 [id number] FRID,CHRI STIE L 2022 20 [facility] EMPAGLIFLOZ IN 25MG TAB TAKE ONE-HALF TABLET BY MOUTH EVERY MORNING FOR DIABETES AND KIDNEY ORAL ACTIVE 03/18/2025 [id number] 4 [facility] [address] [facility] EMPAGLIFLOZ IN 25MG TAB TAKE ONE-HALF TABLET BY MOUTH EVERY MORNING FOR DIABETES AND KIDNEY ORAL DISCONT INUED 03/19/2024 [id number] 4 [facility] [address] [facility] [facility] FISH OIL 1000MG (500MG DHA/EPA) CAP,ORAL TAKE 1 CAPSULE BY MOUTH TWICE A DAY ORAL ACTIVE MARK YORK 2007 [facility] GLIPIZIDE 10MG TAB TAKE ONE TABLET BY MOUTH TWICE A DAY 30 MINUTES BEFORE MEAL FOR DIABETES ORAL ACTIVE 12/04/2024 [id number] 4 CHEY SHELBY K 2023 180 [facility] GLIPIZIDE 10MG TAB TAKE ONE TABLET BY MOUTH TWICE A DAY 30 MINUTES BEFORE MEAL FOR DIABETES ORAL DISCONT INUED 12/22/2023 [id number] 4 CHEY SHELBY K 2022 180 [facility] LENALIDOMID E 10MG CAP,ORAL TAKE ONE CAPSULE BY MOUTH EVERY DAY FOR 21 DAYS AND THEN 7 DAYS OFF. TAKE WITH GLASS OF WATER*FO R DOCUMENT ATION ONLY-KAVITA LED [facility] * ORAL ACTIVE 06/11/2024 [id number] 4 Shilpa FITZGERALD 2023 21 [place] [facility] LENALIDOMID E 10MG CAP,ORAL TAKE ONE CAPSULE BY MOUTH EVERY DAY FOR 21 DAYS AND THEN 7 DAYS OFF. SWALLOW WHOLE WITH WATER *FOR DOCUMENT ATION ONLY - FILLED BY [facility] * ORAL DISCONT INUED 04/12/2024 [id number] 4 HEMA SALGADO L 2023 21 [facility] LENALIDOMID E 10MG CAP,ORAL TAKE ONE CAPSULE BY MOUTH EVERY DAY FOR 21 DAYS AND THEN 7 DAYS OFF. SWALLOW WHOLE WITH WATER*FO R DOCUMENT ATION ONLY-[facility] ORAL DISCONT INUED 03/15/2024 [id number] 4 Shilpa FITZGERALD [address] [facility] [facility] LENALIDOMID E 10MG CAP,ORAL TAKE ONE CAPSULE BY MOUTH EVERY DAY FOR 21 DAYS AND THEN 7 DAYS OFF. SWALLOW WHOLE WITH WATER *FOR DOCUMENT ATION ONLY - FILLED BY [facility] * ORAL DISCONT INUED 02/16/2024 [id number] 4 Shilpa FITZGERALD [address] [facility] [facility] LENALIDOMID E 10MG CAP,ORAL TAKE ONE CAPSULE BY MOUTH EVERY DAY FOR 21 DAYS AND THEN 7 DAYS OFF. SWALLOW WHOLE WITH WATER *FOR DOCUMENT ATION ONLY - FILLED BY [facility] * ORAL DISCONT INUED 01/19/2024 [id number] HEMA SALGADO STIE L 2023 21 [place] [facility] LENALIDOMID E 10MG CAP,ORAL TAKE ONE CAPSULE BY MOUTH EVERY DAY FOR 21 DAYS AND THEN 7 DAYS OFF*TAKE WITH A GLASS OF WATER--D OCUMENTA TION ONLY--MA ILED TO PATIENT BY [facility] ORAL DISCONT INUED 12/22/2023 [id number] 4 Shilpa FITZGERALD 2023 21 [facility] LENALIDOMID E 10MG CAP,ORAL TAKE ONE CAPSULE BY MOUTH EVERY DAY FOR 21 DAYS AND THEN 7 DAYS OFF. SWALLOW WHOLE WITH WATER *FOR DOCUMENT ATION ONLY - [facility]ILLED BY [facility] * ORAL DISCONT INUED 11/24/2023 [id number] FRID,CHRI STIE L 2023 21 [facility] LENALIDOMID E 10MG CAP,ORAL TAKE ONE CAPSULE BY MOUTH EVERY DAY FOR 21 DAYS AND THEN 7 DAYS OFF. SWALLOW WHOLE WITH EWATER*F OR DOCUMENT ATION ONLY-KAVITA LED BY [facility] [facility] * ORAL DISCONT INUED 10/27/2023 [id number] 4 FRID,CHRI STIE L 2023 21 [facility] LENALIDOMID E 10MG CAP,ORAL TAKE ONE CAPSULE BY MOUTH EVERY DAY FOR 21 DAYS AND THEN 7 DAYS OFF. SWALLOW WHOLE WITH WATER *FOR DOCUMENT ATION ONLY - FILLED BY [facility] * ORAL DISCONT INUED 09/29/2023 [id number] 4 FRID,CHRI STIE L 2023 21 [facility] LENALIDOMID E 10MG CAP,ORAL TAKE ONE CAPSULE BY MOUTH EVERY DAY FOR 21 DAYS THEN 7 DAYS OFF. TAKE WITH A GLASS OF WATER*DO CUMENTAT ION ONLY-[facility] [employer] [facility] * ORAL DISCONT INUED 08/31/2023 [id number] FRID,CHRI STIE L 2023 21 [facility] LENALIDOMID E 10MG CAP,ORAL TAKE ONE CAPSULE BY MOUTH EVERY DAY FOR 21 DAYS THEN 7 DAYS OFF. TAKE WITH A GLASS OF WATER*DO CUMENTAT ION ONLY-[facility] * ORAL DISCONT INUED 08/03/2023 [id number] 4 FRID,CHRI STIE L 2023 21 [facility] LENALIDOMID E 10MG CAP,ORAL TAKE ONE CAPSULE BY MOUTH EVERY DAY FOR 21 DAYS THEN 7 DAYS OFF. TAKE WITH A GLASS OF WATER*DO CUMENTAT ION ONLY-KAVITA LED BY [employer] [facility] * ORAL DISCONT INUED 07/07/2023 [id number] 3 FRID,CHRI STIE L 2022 21 [facility] LENALIDOMID E 10MG CAP,ORAL TAKE ONE CAPSULE BY MOUTH EVERY DAY FOR 21 DAYS THEN 7 DAYS OFF. TAKE WITH A GLASS OF WATER. [facility] MAILS TO PATIENT ORAL DISCONT INUED 06/09/2023 [id number] 3 FRID,CHRI STIE L 2022 21 [facility] LENALIDOMID E 10MG CAP,ORAL TAKE ONE CAPSULE BY MOUTH EVERY DAY FOR 21 DAYS AND THEN 7 DAYS OFF*TAKE WITH A GLASS OF WATER--D OCUMENTA TION ONLY--DANITZA ILED TO PATIENT BY [facility] ORAL DISCONT INUED 05/17/2023 [id number] FRID,CHRI STIE L 2022 21 [facility] LENALIDOMID E 10MG CAP,ORAL TAKE ONE CAPSULE BY MOUTH EVERY DAY FOR 21 DAYS AND THEN 7 DAYS OFF. SWALLOW WHOLE WITH WATER *FOR DOCUMENT ATION ONLY - FILLED BY [facility] * ORAL 05/11/2024 [id number] 4 Shilpa FITZGERALD 2023 21 [facility] LENALIDOMID E 10MG CAP,ORAL TAKE ONE CAPSULE BY MOUTH EVERY DAY FOR 21 DAYS AND THEN 7 DAYS OFF. SWALLOW WHOLE WITH WATER *FOR DOCUMENT ATION ONLY - FILLED BY [facility] * ORAL 04/08/2023 [id number] FRID,CHRI STIE L 2022 21 [facility] LORATADINE 10MG TAB TAKE ONE TABLET BY MOUTH PRN ORAL ACTIVE KWABENA ANGEL 2010 [facility] MAGNESIUM OXIDE 420MG TAB TAKE ONE TABLET BY MOUTH TWICE A DAY FOR LOW MAGNESIU M ORAL ACTIVE 09/25/2024 [id number] 4 FRID,CHRI STIE L 2023 100 [facility] MAGNESIUM OXIDE 420MG TAB TAKE ONE TABLET BY MOUTH TWICE A DAY FOR LOW MAGNESIU M ORAL DISCONT INUED 09/23/2023 [id number] 3 FRID,CHRI STIE L 2022 100 [place] [facility] METFORMIN HCL 1000MG TAB TAKE ONE TABLET BY MOUTH EVERY DAY TO DECREASE BLOOD SUGAR ORAL ACTIVE 04/23/2025 [id number] 4 CHEY SHELBY 2023 90 [facility] METFORMIN HCL 1000MG TAB TAKE ONE TABLET BY MOUTH EVERY DAY TO DECREASE BLOOD SUGAR ORAL DISCONT INUED 04/10/2024 [id number] 4 CHEY SHELBY 2022 90 [facility]) MOMETASONE FUROATE 100MCG/ACTU AT INHL,ORAL,1 20D,13GM INHALE 2 PUFFS BY MOUTH TWICE A DAY FOR COPD RESPIR ATORY (INHAL ATION) ACTIVE 04/23/2025 [id number] 4 CHEY SHELBY 2023 3 [facility]) MOMETASONE FUROATE 100MCG/ACTU AT INHL,ORAL,1 20D,13GM INHALE 2 PUFFS BY MOUTH TWICE A DAY FOR COPD RESPIR ATORY (INHAL ATION) DISCONT INUED 04/10/2024 [id number] 3 CHEY SHELBY 2022 3 [facility] MULTIVITAMI NS CAP/TAB TAKE ONE TABLET BY MOUTH EVERY DAY ORAL ACTIVE Sirisha SANTIAGO 2015 [facility]) NYSTATIN [id number] L SUSP,ORAL TAKE 1 TEASPOON FUL BY MOUTH FOUR TIMES A DAY FOR INTERMIT TENT THRUSH * MAKE SURE YOU SWISH AND THEN SWALLOW* ORAL 03/09/2024 [id number] FRID,CHRI STIE L 2022 480 [facility] OLODATEROL 2.5MCG/TIOT ROPIUM 2.5MCG/ACTU AT INHL,ORAL,6 0D,4GM INHALE 2 PUFFS BY INHALATI ON EVERY DAY TO PREVENT TROUBLE BREATHIN G RESPIR ATORY (INHAL ATION) ACTIVE 04/23/2025 [id number] 4 CHEY SHELBY 2023 3 [facility] OLODATEROL 2.5MCG/TIOT ROPIUM 2.5MCG/ACTU AT INHL,ORAL,6 0D,4GM INHALE 2 PUFFS BY INHALATI ON EVERY DAY TO PREVENT TROUBLE BREATHIN G RESPIR ATORY (INHAL ATION) DISCONT INUED 04/10/2024 [id number] 4 CHEY SHELBY K 2022 1 [facility] OLODATEROL 2.5MCG/TIOT ROPIUM 2.5MCG/ACTU AT INHL,ORAL,6 0D,4GM INHALE 2 PUFFS BY INHALATI ON EVERY DAY TO PREVENT TROUBLE BREATHIN G RESPIR ATORY (INHAL ATION) DISCONT INUED 04/03/2023 [id number] 3 CHEY SHELBY K 2021 1 [facility] PHOSPHORUS 250MG/POTAS SIUM 280MG/SODIU M 160MG/PKT PWDR TAKE 1 PACKET BY MOUTH TWICE A DAY *MIX PACKET WITH 2.5 ML OF WATER OR JUICE. STIR WELL AND DRINK PROMPTLY ORAL ACTIVE 07/17/2024 [id number] 4 FRID,CHRI STIE L 2023 100 [facility] PROCHLORPER AZINE MALEATE 10MG TAB TAKE ONE TABLET BY MOUTH EVERY 6 HOURS NEEDED FOR NAUSEA AND VOMITING . DO NOT TAKE MORE THAN 40 MG PER DAY. ORAL HOLD 12/20/2024 [id number] NAOMI,CHRI STIE L 2023 60 [facility] PROCHLORPER AZINE MALEATE 10MG TAB TAKE ONE TABLET BY MOUTH EVERY 6 HOURS NEEDED FOR NAUSEA AND VOMITING . DO NOT TAKE MORE THAN 40 MG PER DAY. ORAL 11/22/2023 [id number] BLISS,RAY HELLE L 2022 60 [facility] Allergies, Adverse Reactions, Alerts Combined list of allergies from Department of Defense and Veterans Affairs facilities. It does not include entries that were removed or entered in error. Substance Category Reaction Severity Reaction type Status Date Reported Comments Source ATORVASTATIN Propensity to adverse reactions to drug (finding) Pain in lower limb active 6 [facility] SIMVASTATIN Propensity to adverse reactions to drug (finding) Muscle pain active 6 [facility] Immunizations Combined list of available immunizations from the Department of Defense and Veterans Affairs facilities. Immunization Series Date Given Administered By Site Reaction Lot Number CVX Code Drug Sanitation Worker Cleaning Equipment Status Comments Source COVID-19 (PFIZER), MRNA, LNP-S, PF, ANGE-SUCROSE, 30 MCG/0.3 ML (AGES 12+ YEARS) 2023 309 complet ed [facility] INFLUENZA, HIGH-DOSE, TRIVALENT, PF 2023 135 complet ed [facility] COVID-19 (PFIZER), MRNA, LNP-S, PF, ANGE-SUCROSE, 30 MCG/0.3 ML (AGES 12+ YEARS) 1 2022 Kaleb BARRERA LEFT DELTO ID [id number] 309 complet ed upper left deltoid [facility]) ZOSTER RECOMBINANT 2 2022 Kaleb BARRERA LEFT DELTO ID [id number] 187 complet ed DILUENT LOT#[id number] , exp. 01/13/2024 given in upper left deltoid. [facility] INFLUENZA, HIGH-DOSE, QUADRIVALENT 2022 Kaleb BARRERA LEFT DELTO ID [id number] 197 complet ed [facility]) ZOSTER RECOMBINANT 1 2022 Kaleb BARRERA LEFT DELTO ID [id number] 187 complet ed DILUENT LOT# [id number] [facility] COVID-19 (Clio), MRNA, LNP-S, BIVALENT BOOSTER, PF, 30 MCG/0.3 ML DOSE 1 2022 SETH ARIZA LEFT DELTO ID [id number] 300 complet ed [facility]) INFLUENZA VACCINE, QUADRIVALENT, ADJUVANTED 2021 205 complet ed [facility] COVID-19 (PFIZER), MRNA, LNP-S, PF, 30 MCG/0.3 ML DOSE, ANGE-SUCROSE (AGES 12+ YEARS) 2021 217 complet ed [facility] TDAP 2020 115 complet ed [facility] COVID-19 (PFIZER), MRNA, LNP-S, PF, 30 MCG/0.3 ML DOSE 3 2020 208 complet ed PFR; [id number]; 1 [facility] INFLUENZA, INJECTABLE, QUADRIVALENT, PRESERVATIVE FREE 2020 150 complet ed [facility] COVID-19 (PFIZER), MRNA, LNP-S, PF, 30 MCG/0.3 ML DOSE 2 2020 208 complet ed PFR; [id number]; 1 [facility] COVID-19 (PFIZER), MRNA, LNP-S, PF, 30 MCG/0.3 ML DOSE 1 2020 208 complet ed PFR; [id number]; 1 [facility] INFLUENZA, INJECTABLE, QUADRIVALENT, PRESERVATIVE FREE 2019 150 complet ed [facility] INFLUENZA, SEASONAL, INJECTABLE, PRESERVATIVE FREE 2018 140 complet ed [facility] INFLUENZA, SEASONAL, INJECTABLE, PRESERVATIVE FREE 2017 140 complet ed [facility] INFLUENZA, HIGH DOSE SEASONAL 2016 135 complet ed [facility] TDAP 2016 115 complet ed [id number], [id number], 02-22-2019 [facility] INFLUENZA, HIGH DOSE SEASONAL 2014 135 complet ed [facility] PNEUMOCOCCAL CONJUGATE PCV 13 2014 133 complet ed [employer] Lot #[id number] Exp. 07/2016 [facility] PNEUMOCOCCAL, UNSPECIFIED FORMULATION 2012 109 complet ed [employer] [id number] [facility]) ZOSTER LIVE 2011 121 [...] POLYSACCHARID E [id number] 2007 33 complet ed [facility] ZOSTER LIVE 2007 121 complet ed [facility] INFLUENZA, SEASONAL, INJECTABLE, PRESERVATIVE FREE 2006 140 complet ed [facility] TDAP 2006 115 complet ed Before Surgery for hernia [facility] PNEUMOCOCCAL, UNSPECIFIED FORMULATION 2006 109 complet ed [facility] TD (ADULT), 2 LF TETANUS TOXOID, PRESERVATIVE FREE, ADSORBED 2005 09 complet ed [facility] INFLUENZA, SEASONAL, INJECTABLE 1995 141 complet ed [facility] TD (ADULT), 2 LF TETANUS TOXOID, PRESERVATIVE FREE, ADSORBED 1991 09 complet ed [facility] Results Combined list of recent chemistry, hematology and other laboratory results from Department of Defense and Veterans Affairs, ranging from 15 months to all on record, depending upon the facility. Order Name Results Value Reference Range Date Interpretation Specimen Comments Source CBC & DIFF LEUKOCYTES [#/VOLUME] IN BLOOD BY AUTOMATED COUNT 3.7 4.0 - 11.0 03/12 L Specimen Type: BLOOD Comment: Automated Differentia l Performed Ordering Provider: XENIA SALGADO Report Released Date/Time: Dec 19, 2023 02:29 PM Reporting Lab: [facility] [id number] Performing Lab: [facility] [address] [facility] CBC & DIFF ERYTHROCYT ES [#/VOLUME] IN BLOOD BY AUTOMATED COUNT 4.00 4.60 - 6.20 03/12 L Specimen Type: BLOOD Comment: Automated Differentia l Performed Ordering Provider: XENIA SALGADO Report Released Date/Time: Dec 19, 2023 02:29 PM Reporting Lab: [facility] [address] Performing Lab: [facility] [address] [facility] CBC & DIFF HEMOGLOBIN [MASS/VOLU ME] IN BLOOD 13.1 g/dL 13.5 - 17.9 03/12 L Specimen Type: BLOOD Comment: Automated Differentia l Performed Ordering Provider: XENIA SALGADO Report Released Date/Time: Dec 19, 2023 02:29 PM Reporting Lab: [facility] [address] Performing Lab: [facility] [address] [place] [facility] CBC & DIFF HEMATOCRIT [VOLUME FRACTION] OF BLOOD BY AUTOMATED COUNT 38.8 41 - 54 03/12 L Specimen Type: BLOOD Comment: Automated Differentia l Performed Ordering Provider: XENIA SALGADO L Report Released Date/Time: Dec 19, 2023 02:29 PM Reporting Lab: [facility] [address] Performing Lab: [facility] [address] [place] [facility] CBC & DIFF MCV [ENTITIC VOLUME] BY AUTOMATED COUNT 97.0 fL 80 - 100 03/12 Specimen Type: BLOOD Comment: Automated Differentia l Performed Ordering Provider: XENIA SALGADO L Report Released Date/Time: Dec 19, 2023 02:29 PM Reporting Lab: [facility] [address] Performing Lab: [facility] [address] [place] [facility] CBC & DIFF MCH [ENTITIC MASS] BY AUTOMATED COUNT 32.8 pg 27 - 33 03/12 Specimen Type: BLOOD Comment: Automated Differentia l Performed Ordering Provider: XENIA SALGADO L Report Released Date/Time: Dec 19, 2023 02:29 PM Reporting Lab: [facility] [address] Performing Lab: [facility] [address] [place] [facility] CBC & DIFF MCHC [MASS/VOLU ME] BY AUTOMATED COUNT 33.8 g/dL 32.0 - 37.5 03/12 Specimen Type: BLOOD Comment: Automated Differentia l Performed Ordering Provider: XENIA SALGADO L Report Released Date/Time: Dec 19, 2023 02:29 PM Reporting Lab: [facility] [id number] Performing Lab: [facility] [phone] [place] [facility] CBC & DIFF PLATELETS [#/VOLUME] IN BLOOD BY AUTOMATED COUNT 100 150 - 400 03/12 L Specimen Type: BLOOD Comment: Automated Differentia l Performed Ordering Provider: XENIA SALGADO Report Released Date/Time: Dec 19, 2023 02:29 PM Reporting Lab: [facility] [id number] Performing Lab: [facility] [phone] [place] [facility] CBC & DIFF PLATELET MEAN VOLUME [ENTITIC VOLUME] IN BLOOD BY AUTOMATED COUNT 10.2 fL 7.4 - 10.4 03/12 Specimen Type: BLOOD Comment: Automated Differentia l Performed Ordering Provider: XENIA SALGADO Report Released Date/Time: Dec 19, 2023 02:29 PM Reporting Lab: [facility] [phone] Performing Lab: [facility] [address] [place] [facility] CBC & DIFF NEUTROPHIL S/100 LEUKOCYTES IN BLOOD BY MANUAL COUNT 60.2 40.0 - 80.0 03/12 Specimen Type: BLOOD Comment: Automated Differentia l Performed Ordering Provider: XENIA SALGADO Report Released Date/Time: Dec 19, 2023 02:29 PM Reporting Lab: [facility] [phone] Performing Lab: [facility] [address] [place] [facility] CBC & DIFF LYMPHOCYTE S/100 LEUKOCYTES IN BLOOD BY MANUAL COUNT 24.5 15.0 - 45.0 03/12 Specimen Type: BLOOD Comment: Automated Differentia l Performed Ordering Provider: XENIA SALGADO Report Released Date/Time: Dec 19, 2023 02:29 PM Reporting Lab: [facility] [phone] Performing Lab: [facility] [address] [place] [facility] CBC & DIFF MONOCYTES/ 100 LEUKOCYTES IN BLOOD BY AUTOMATED COUNT 12.9 2.0 - 12.0 03/12 H Specimen Type: BLOOD Comment: Automated Differentia l Performed Ordering Provider: XENIA SALGADO Report Released Date/Time: Dec 19, 2023 02:29 PM Reporting Lab: [facility] [phone] Performing Lab: [facility] [phone] [place] [facility] CBC & DIFF EOSINOPHIL S/100 LEUKOCYTES IN BLOOD BY AUTOMATED COUNT 0.8 0.0 - 6.0 03/12 Specimen Type: BLOOD Comment: Automated Differentia l Performed Ordering Provider: XENIA SALGADO Report Released Date/Time: Dec 19, 2023 02:29 PM Reporting Lab: [facility] [address] Performing Lab: [facility] [address] [place] [facility] CBC & DIFF BASOPHILS/ 100 LEUKOCYTES IN BLOOD BY MANUAL COUNT 0.5 0.0 - 2.0 03/12 Specimen Type: BLOOD Comment: Automated Differentia l Performed Ordering Provider: XENIA SALGADO Report Released Date/Time: Dec 19, 2023 02:29 PM Reporting Lab: [facility] [phone] Performing Lab: [facility] [address] [place] [facility] CBC & DIFF ERYTHROCYT E DISTRIBUTI ON WIDTH [RATIO] BY AUTOMATED COUNT 14.6 11.5 - 14.5 03/12 H Specimen Type: BLOOD Comment: Automated Differentia l Performed Ordering Provider: XENIA SALGADO Report Released Date/Time: Dec 19, 2023 02:29 PM Reporting Lab: [facility] [address] Performing Lab: [facility] [address] [place] [facility] CBC & DIFF LYMPHOCYTE S [#/VOLUME] IN BLOOD BY AUTOMATED COUNT 0.9 1.0 - 4.0 03/12 L Specimen Type: BLOOD Comment: Automated Differentia l Performed Ordering Provider: XENIA SALGADO Report Released Date/Time: Dec 19, 2023 02:29 PM Reporting Lab: [facility] [address] Performing Lab: [facility] [address] [place] [facility] CBC & DIFF MONOCYTES [#/VOLUME] IN BLOOD BY AUTOMATED COUNT 0.5 0.1 - 1.0 03/12 Specimen Type: BLOOD Comment: Automated Differentia l Performed Ordering Provider: XENIA SALGADO Report Released Date/Time: Dec 19, 2023 02:29 PM Reporting Lab: [facility] [address] Performing Lab: [facility] [address] [place] [facility] CBC & DIFF NEUTROPHIL S [#/VOLUME] IN BLOOD BY AUTOMATED COUNT 2.2 2.0 - 7.7 03/12 Specimen Type: BLOOD Comment: Automated Differentia l Performed Ordering Provider: XENIA SALGADO L Report Released Date/Time: Dec 19, 2023 02:29 PM Reporting Lab: [facility] [address] Performing Lab: [facility] [phone] [place] [facility] CBC & DIFF EOSINOPHIL S [#/VOLUME] IN BLOOD BY AUTOMATED COUNT 0.0 0 - 0.5 03/12 Specimen Type: BLOOD Comment: Automated Differentia l Performed Ordering Provider: XENIA SALGADO Report Released Date/Time: Dec 19, 2023 02:29 PM Reporting Lab: [facility] [address] Performing Lab: [facility] [address] [place] [facility] CBC & DIFF BASOPHILS [#/VOLUME] IN BLOOD BY AUTOMATED COUNT 0.0 0 - 0.2 03/12 Specimen Type: BLOOD Comment: Automated Differentia l Performed Ordering Provider: XENIA SALGADO Report Released Date/Time: Dec 19, 2023 02:29 PM Reporting Lab: [facility] [address] Performing Lab: [facility] [address] [place] [facility] CBC & DIFF IG(META,MY ZOFIA,PRO) 1.1 03/12 Specimen Type: BLOOD Comment: Automated Differentia l Performed Ordering Provider: XENIA SALGADO Report Released Date/Time: Dec 19, 2023 02:29 PM Reporting Lab: [facility] [address] Performing Lab: [facility] [address] [place] [facility] CBC & DIFF IMMATURE GRANULOCYT ES [PRESENCE] IN BLOOD BY AUTOMATED COUNT 0.0 0 - 0.1 03/12 Specimen Type: BLOOD Comment: Automated Differentia l Performed Ordering Provider: XENIA SALGADO Report Released Date/Time: Dec 19, 2023 02:29 PM Reporting Lab: [facility] [address] Performing Lab: [facility] [address] [place] [facility] COMPREHE NSIVE METABOLI C PANEL+MG CREATININE [MASS/VOLU ME] IN SERUM OR PLASMA 1.7 mg/dL 0.7 - 1.2 03/12 H Specimen Type: PLASMA Comment: Automated Differentia l Performed Ordering Provider: XENIA SALGADO Report Released Date/Time: Dec 19, 2023 02:29 PM Reporting Lab: [facility] [address] Performing Lab: [facility] [address] [place] [facility] COMPREHE NSIVE METABOLI C PANEL+MG UREA NITROGEN [MASS/VOLU ME] IN SERUM OR PLASMA 34 mg/dL 8 - 26 03/12 H Specimen Type: PLASMA Comment: Automated Differentia l Performed Ordering Provider: XENIA SALGADO Report Released Date/Time: Dec 19, 2023 02:29 PM Reporting Lab: [facility] [address] Performing Lab: [facility] [address] [place] [facility] COMPREHE NSIVE METABOLI C PANEL+MG GLUCOSE [MASS/VOLU ME] IN SERUM OR PLASMA 220 mg/dL 70 - 100 03/12 H Specimen Type: PLASMA Comment: Automated Differentia l Performed Ordering Provider: XENIA SALGADO Report Released Date/Time: Dec 19, 2023 02:29 PM Reporting Lab: [facility] [address] Performing Lab: [facility] [address] [place] [facility] COMPREHE NSIVE METABOLI C PANEL+MG SODIUM [MOLES/VOL UME] IN SERUM OR PLASMA 140 mmol/L 136 - 145 03/12 Specimen Type: PLASMA Comment: Automated Differentia l Performed Ordering Provider: XENIA SALGADO Report Released Date/Time: Dec 19, 2023 02:29 PM Reporting Lab: [facility] [address] Performing Lab: [facility] [address] [place] [facility] COMPREHE NSIVE METABOLI C PANEL+MG POTASSIUM [MOLES/VOL UME] IN SERUM OR PLASMA 4.4 mmol/L 3.5 - 5.1 03/12 Specimen Type: PLASMA Comment: Automated Differentia l Performed Ordering Provider: XENAI SALGADO Report Released Date/Time: Dec 19, 2023 02:29 PM Reporting Lab: [facility] [address] Performing Lab: [facility] [address] [place] [facility] COMPREHE NSIVE METABOLI C PANEL+MG CHLORIDE [MOLES/VOL UME] IN SERUM OR PLASMA 110 mmol/L 98 - 107 03/12 H Specimen Type: PLASMA Comment: Automated Differentia l Performed Ordering Provider: XENIA SALGADO Report Released Date/Time: Dec 19, 2023 02:29 PM Reporting Lab: [facility] [address] Performing Lab: [facility] [address] [place] [facility] COMPREHE NSIVE METABOLI C PANEL+MG CARBON DIOXIDE, TOTAL [MOLES/VOL UME] IN SERUM OR PLASMA 18 mmol/L 22 - 29 03/12 L Specimen Type: PLASMA Comment: Automated Differentia l Performed Ordering Provider: XENIA SALGADO Report Released Date/Time: Dec 19, 2023 02:29 PM Reporting Lab: [facility] [address] Performing Lab: [facility] [address] [place] [facility] COMPREHE NSIVE METABOLI C PANEL+MG CALCIUM [MASS/VOLU ME] IN SERUM OR PLASMA 9.5 mg/dL 8.4 - 10.2 03/12 Specimen Type: PLASMA Comment: Automated Differentia l Performed Ordering Provider: XENIA SALGADO Report Released Date/Time: Dec 19, 2023 02:29 PM Reporting Lab: [facility] [address] Performing Lab: [facility] [address] [place] [facility] COMPREHE NSIVE METABOLI C PANEL+MG PROTEIN [MASS/VOLU ME] IN SERUM OR PLASMA 6.6 g/dL 6.4 - 8.3 03/12 Specimen Type: PLASMA Comment: Automated Differentia l Performed Ordering Provider: XENIA SALGADO Report Released Date/Time: Dec 19, 2023 02:29 PM Reporting Lab: [facility] [address] Performing Lab: [facility] [address] [place] [facility] COMPREHE NSIVE METABOLI C PANEL+MG ALBUMIN [MASS/VOLU ME] IN SERUM OR PLASMA 4.4 g/dL 3.5 - 5.2 03/12 Specimen Type: PLASMA Comment: Automated Differentia l Performed Ordering Provider: XENIA SALGADO Report Released Date/Time: Dec 19, 2023 02:29 PM Reporting Lab: [facility] [address] Performing Lab: [facility] [address] [place] [facility] COMPREHE NSIVE METABOLI C PANEL+MG BILIRUBIN. TOTAL [MASS/VOLU ME] IN SERUM OR PLASMA 0.7 mg/dL 0.2 - 1.2 03/12 Specimen Type: PLASMA Comment: Automated Differentia l Performed Ordering Provider: XENIA SALGADO Report Released Date/Time: Dec 19, 2023 02:29 PM Reporting Lab: [facility] [address] Performing Lab: [facility] [address] [place] [facility] COMPREHE NSIVE METABOLI C PANEL+MG MAGNESIUM [MASS/VOLU ME] IN SERUM OR PLASMA 2.0 mg/dL 1.6 - 2.6 03/12 Specimen Type: PLASMA Comment: Automated Differentia l Performed Ordering Provider: XENIA SALGADO Report Released Date/Time: Dec 19, 2023 02:29 PM Reporting Lab: [facility] [address] Performing Lab: [facility] [address] [place] [facility] COMPREHE NSIVE METABOLI C PANEL+MG ANION GAP IN SERUM OR PLASMA 12 mmol/L 5 - 15 03/12 Specimen Type: PLASMA Comment: Automated Differentia l Performed Ordering Provider: XENIA SALGADO Report Released Date/Time: Dec 19, 2023 02:29 PM Reporting Lab: [facility] [address] Performing Lab: [facility] [address] [place] [facility] COMPREHE NSIVE METABOLI C PANEL+MG ALKALINE PHOSPHATAS E [ENZYMATIC ACTIVITY/V OLUME] IN SERUM OR PLASMA 123 U/L 40 - 150 03/12 Specimen Type: PLASMA Comment: Automated Differentia l Performed Ordering Provider: XENIA SALGADO Report Released Date/Time: Dec 19, 2023 02:29 PM Reporting Lab: [facility] [address] Performing Lab: [facility] [address] [facility] COMPREHE NSIVE METABOLI C PANEL+MG ALANINE AMINOTRANS FERASE [ENZYMATIC ACTIVITY/V OLUME] IN SERUM OR PLASMA 21 U/L <44 - 44 03/12 Specimen Type: PLASMA Comment: Automated Differentia l Performed Ordering Provider: XENIA SALGADO Report Released Date/Time: Dec 19, 2023 02:29 PM Reporting Lab: [facility] [address] Performing Lab: [facility] [address] [facility] COMPREH NSIVE METABOLI C PANEL+MG ASPARTATE AMINOTRANS FERASE [ENZYMATIC ACTIVITY/V OLUME] IN SERUM OR PLASMA 12 U/L 11 - 34 03/12 Specimen Type: PLASMA Comment: Automated Differentia l Performed Ordering Provider: XENIA SALGADO Report Released Date/Time: Dec 19, 2023 02:29 PM Reporting Lab: [facility] [address] Performing Lab: [facility] [address] [facility] COMPREHE NSIVE METABOLI C PANEL+MG GLOMERULAR FILTRATION RATE/1.73 SQ M.PREDICTE D [VOLUME RATE/AREA] IN SERUM, PLASMA OR BLOOD BY CREATININE -BASED FORMULA (CKD-EPI 2020) 41 60 03/12 L Specimen Type: PLASMA Comment: Automated Differentia l Performed Ordering Provider: XENIA SALGADO Report Released Date/Time: Dec 19, 2023 02:29 PM Reporting Lab: [facility] [address] Performing Lab: [facility] [address] [facility] ELP/IMMF IX,SERUM PANEL PROTEIN [MASS/VOLU ME] IN SERUM OR PLASMA 6.3 g/dL 6.4 - 8.3 03/12 L Specimen Type: SERUM Comment: Peak(s) too small to quantitate. Ordering Provider: XENIA SALGADO Report Released Date/Time: Dec 19, 2023 02:29 PM Reporting Lab: [facility] [address] Performing Lab: [facility] [address] [place] [facility] ELP/IMMF IX,SERUM PANEL IMMUNOFIXA TION FOR SERUM OR PLASMA IgA lambda 03/12 Specimen Type: SERUM Comment: Peak(s) too small to quantitate. Ordering Provider: XENIA SALGADO Report Released Date/Time: Dec 19, 2023 02:29 PM Reporting Lab: [facility] [address] Performing Lab: [place] [phone] [place] [facility] ELP/IMMF IX,SERUM PANEL ALBUMIN [MASS/VOLU ME] IN SERUM OR PLASMA BY ELECTROPHO RESIS 4.18 g/dL 3.66 - 4.78 03/12 Specimen Type: SERUM Comment: Peak(s) too small to quantitate. Ordering Provider: XENIA SALGADO Report Released Date/Time: Dec 19, 2023 02:29 PM Reporting Lab: [facility] [phone] Performing Lab: [facility] [address] [place] [facility] ELP/IMMF IX,SERUM PANEL ALPHA 1 GLOBULIN [MASS/VOLU ME] IN SERUM OR PLASMA BY ELECTROPHO RESIS 0.28 g/dL 0.14 - 0.38 03/12 Specimen Type: SERUM Comment: Peak(s) too small to quantitate. Ordering Provider: XENIA SALGADO Report Released Date/Time: Dec 19, 2023 02:29 PM Reporting Lab: [facility] [address] Performing Lab: [facility] [address] [place] [facility] ELP/IMMF IX,SERUM PANEL ALPHA 2 GLOBULIN [MASS/VOLU ME] IN SERUM OR PLASMA BY ELECTROPHO RESIS 0.81 g/dL 0.50 - 0.90 03/12 Specimen Type: SERUM Comment: Peak(s) too small to quantitate. Ordering Provider: XENIA SALGADO Report Released Date/Time: Dec 19, 2023 02:29 PM Reporting Lab: [facility] [address] Performing Lab: [facility] [address] [place] [facility] ELP/IMMF IX,SERUM PANEL BETA 1 GLOBULIN [MASS/VOLU ME] IN SERUM OR PLASMA BY ELECTROPHO RESIS 0.40 g/dL 0.33 - 0.55 03/12 Specimen Type: SERUM Comment: Peak(s) too small to quantitate. Ordering Provider: XENIA SALGADO Report Released Date/Time: Dec 19, 2023 02:29 PM Reporting Lab: [facility] [address] Performing Lab: [facility] [address] [place] [facility] ELP/IMMF IX,SERUM PANEL BETA 2 GLOBULIN [MASS/VOLU ME] IN SERUM OR PLASMA BY ELECTROPHO RESIS 0.34 g/dL 0.20 - 0.52 03/12 Specimen Type: SERUM Comment: Peak(s) too small to quantitate. Ordering Provider: XENIA SALGADO Report Released Date/Time: Dec 19, 2023 02:29 PM Reporting Lab: [facility] [address] Performing Lab: [facility] [address] [place] [facility] ELP/IMMF IX,SERUM PANEL GAMMA GLOBULIN [MASS/VOLU ME] IN SERUM OR PLASMA BY ELECTROPHO RESIS 0.30 g/dL 0.58 - 1.72 03/12 L Specimen Type: SERUM Comment: Peak(s) too small to quantitate. Ordering Provider: XENIA SALGADO Report Released Date/Time: Dec 19, 2023 02:29 PM Reporting Lab: [facility] [address] Performing Lab: [facility] [address] [place] [facility] ELP/IMMF IX,SERUM PANEL PROTEIN [MASS/VOLU ME] IN SERUM OR PLASMA 6.3 g/dL 6.0 - 8.3 03/12 Specimen Type: SERUM Comment: Peak(s) too small to quantitate. Ordering Provider: XENIA SALGADO Report Released Date/Time: Dec 19, 2023 02:29 PM Reporting Lab: [facility] [address] Performing Lab: [place] [phone] [place] [facility] ELP/IMMF IX,SERUM PANEL IMMUNOELEC TROPHORESI S FOR SERUM OR PLASMA MONOCLON AL 03/12 Specimen Type: SERUM Comment: Peak(s) too small to quantitate. Ordering Provider: XENIA SALGADO Report Released Date/Time: Dec 19, 2023 02:29 PM Reporting Lab: [facility] [phone] Performing Lab: [place] [phone] [place] [facility] KAPPA/LA MBDA LC FREE,RAT IO [place]PA LIGHT CHAINS.RICHARD E [MASS/VOLU ME] IN SERUM 15.5 mg/L 3.3 - 19.4 03/12 Specimen Type: SERUM Comment: Free kappa/lambd a [...] therapy of these disorders. Test Performed by [facility], [facility], [address] [place] [address] Robert Swift M.D., Ph.D., Director of Laboratorie s , CLIA [id number] Ordering Provider: XENIA SALGADO Report Released Date/Time: Dec 19, 2023 02:29 PM Reporting Lab: [facility] [address] Performing Lab: [address] [place] [facility] KAPPA/LA MBDA LC FREE,RAT IO LAMBDA LIGHT CHAINS.RICHARD E [MASS/VOLU ME] IN SERUM OR PLASMA 31.8 mg/L 5.7 - 26.3 03/12 H Specimen Type: SERUM Comment: Free kappa/lambd [...] therapy of these disorders. Test Performed by [facility], [address] [place] [address] Robert Swift M.D., Ph.D., Director of Laboratorie s , CLIA [id number] Ordering Provider: XENIA SALGADO Report Released Date/Time: Dec 19, 2023 02:29 PM Reporting Lab: [facility] [address] Performing Lab: [address] [place] [facility] K[place]PA/LA MBDA LC FREE,RAT IO K[place]PA LIGHT CHAINS.RICHARD E/LAMBDA LIGHT CHAINS.RICHARD E [MASS RATIO] IN SERUM 0.49 0.26 - 1.65 03/12 Specimen Type: SERUM Comment: Free kappa/lambd a [...] therapy of these disorders. Test Performed by [facility], [address] [place] [address] Robert Swift M.D., Ph.D., Director of Laboratorie s , CLIA [id number] Ordering Provider: XENIA SALGADO Report Released Date/Time: Dec 19, 2023 02:29 PM Reporting Lab: [facility] [address] Performing Lab: [facility] [address] [facility] [place] [facility] LD,TOTAL LACTATE DEHYDROGEN ASE [ENZYMATIC ACTIVITY/V OLUME] IN SERUM OR PLASMA BY LACTATE TO PYRUVATE REACTION 133 U/L 125 - 220 03/12 Specimen Type: PLASMA No comment entered. Ordering Provider: XENIA SALGADO Report Released Date/Time: Dec 19, 2023 02:29 PM Reporting Lab: [facility] [phone] Performing Lab: [facility] [address] [place] [facility] TSH W/REFLEX TO FREE T4 THYROTROPI N [UNITS/VOL UME] IN SERUM OR PLASMA 0.79 u[IU]/mL 0.35 - 4.94 03/12 Specimen Type: PLASMA Comment: Automated Differentia l Performed Ordering Provider: XENIA SALGADO Report Released Date/Time: Dec 19, 2023 02:29 PM Reporting Lab: [facility] [address] Performing Lab: [facility] [address] [place] [facility] URIC ACID URATE [MASS/VOLU ME] IN SERUM OR PLASMA 8.2 mg/dL 3.7 - 7.7 03/12 H Specimen Type: PLASMA No comment entered. Ordering Provider: XENIA SALGADO Report Released Date/Time: Dec 19, 2023 02:29 PM Reporting Lab: [facility] [address] Performing Lab: [facility] [address] [place] [facility] ELP/IMMF IX,SERUM PANEL PROTEIN [MASS/VOLU ME] IN SERUM OR PLASMA 6.3 g/dL 6.0 - 8.3 12/18 Specimen Type: SERUM Comment: Peak(s) too small to quantitate. Ordering Provider: KAYLEY FITZGERALD Report Released Date/Time: November 21, 2023 12:19 PM Reporting Lab: [facility] [phone] Performing Lab: [facility] [address] [place] [facility] ELP/IMMF IX,SERUM PANEL IMMUNOFIXA TION FOR SERUM OR PLASMA IgA lambda 12/18 Specimen Type: SERUM Comment: Peak(s) too small to quantitate. Ordering Provider: KAYLEY FITZGERALD Report Released Date/Time: November 21, 2023 12:19 PM Reporting Lab: [facility] [address] Performing Lab: [place] [phone] [place] [facility] ELP/IMMF IX,SERUM PANEL ALBUMIN [MASS/VOLU ME] IN SERUM OR PLASMA BY ELECTROPHO RESIS 4.21 g/dL 3.66 - 4.78 12/18 Specimen Type: SERUM Comment: Peak(s) too small to quantitate. Ordering Provider: KAYLEY FITZGERALD Report Released Date/Time: November 21, 2023 12:19 PM Reporting Lab: [facility] [address] Performing Lab: [place] [phone] [place] [facility] ELP/IMMF IX,SERUM PANEL ALPHA 1 GLOBULIN [MASS/VOLU ME] IN SERUM OR PLASMA BY ELECTROPHO RESIS 0.27 g/dL 0.14 - 0.38 12/18 Specimen Type: SERUM Comment: Peak(s) too small to quantitate. Ordering Provider: KAYLEY FITZGERALD Report Released Date/Time: November 21, 2023 12:19 PM Reporting Lab: [facility] [address] Performing Lab: [place] [phone] [place] [facility] ELP/IMMF IX,SERUM PANEL ALPHA 2 GLOBULIN [MASS/VOLU ME] IN SERUM OR PLASMA BY ELECTROPHO RESIS 0.77 g/dL 0.50 - 0.90 12/18 Specimen Type: SERUM Comment: Peak(s) too small to quantitate. Ordering Provider: KAYLEY FITZGERALD Report Released Date/Time: November 21, 2023 12:19 PM Reporting Lab: [facility] [address] Performing Lab: [facility] [address] [place] [facility] ELP/IMMF IX,SERUM PANEL BETA 1 GLOBULIN [MASS/VOLU ME] IN SERUM OR PLASMA BY ELECTROPHO RESIS 0.41 g/dL 0.33 - 0.55 12/18 Specimen Type: SERUM Comment: Peak(s) too small to quantitate. Ordering Provider: KAYLEY FITZGERALD Report Released Date/Time: November 21, 2023 12:19 PM Reporting Lab: [facility] [phone] Performing Lab: [place] [phone] [place] [facility] ELP/IMMF IX,SERUM PANEL BETA 2 GLOBULIN [MASS/VOLU ME] IN SERUM OR PLASMA BY ELECTROPHO RESIS 0.33 g/dL 0.20 - 0.52 12/18 Specimen Type: SERUM Comment: Peak(s) too small to quantitate. Ordering Provider: KAYLEY FITZGERALD Report Released Date/Time: November 21, 2023 12:19 PM Reporting Lab: [facility] [address] Performing Lab: [place] [phone] [place] [facility] ELP/IMMF IX,SERUM PANEL GAMMA GLOBULIN [MASS/VOLU ME] IN SERUM OR PLASMA BY ELECTROPHO RESIS 0.30 g/dL 0.58 - 1.72 12/18 L Specimen Type: SERUM Comment: Peak(s) too small to quantitate. Ordering Provider: KAYLEY FITZGERALD Report Released Date/Time: November 21, 2023 12:19 PM Reporting Lab: [facility] [address] Performing Lab: [place] [phone] [place] [facility] ELP/IMMF IX,SERUM PANEL PROTEIN [MASS/VOLU ME] IN SERUM OR PLASMA 6.3 g/dL 6.0 - 8.3 12/18 Specimen Type: SERUM Comment: Peak(s) too small to quantitate. Ordering Provider: KAYLEY FITZGERALD Report Released Date/Time: November 21, 2023 12:19 PM Reporting Lab: [place] [phone] Performing Lab: [place] [phone] [place] [facility] ELP/IMMF IX,SERUM PANEL IMMUNOELEC TROPHORESI S FOR SERUM OR PLASMA MONOCLON AL 12/18 Specimen Type: SERUM Comment: Peak(s) too small to quantitate. Ordering Provider: KAYLEY FITZGERALD Report Released Date/Time: November 21, 2023 12:19 PM Reporting Lab: [facility] [phone] Performing Lab: [facility] [address] [facility] [place] MBDA LC FREE,RAT IO [place] LIGHT CHAINS.RICHARD E [MASS/VOLU ME] IN SERUM 16.1 mg/L 3.3 - 19.4 12/18 Specimen Type: SERUM Comment: Free kappa/lambd a [...] therapy of these disorders. Test Performed by [facility], [employer] [facility], [address] [place] [address] Robert Swift M.D., Ph.D., Director of Laboratorie s , CLIA [id number] Ordering Provider: KAYLEY FITZGERALD Report Released Date/Time: November 21, 2023 12:19 PM Reporting Lab: [facility] [phone] Performing Lab: [address] [facility] [place] MBDA LC FREE,RAT IO LAMBDA LIGHT CHAINS.RICHARD E [MASS/VOLU ME] IN SERUM OR PLASMA 29.5 mg/L 5.7 - 26.3 12/18 H Specimen Type: SERUM Comment: Free kappa/lambd [...] therapy of these disorders. Test Performed by [employer] [employer], [address] [place] [address] Robert Swift M.D., Ph.D., Director of Laboratorie s , CLIA [id number] Ordering Provider: KAYLEY FITZGERALD Report Released Date/Time: November 21, 2023 12:19 PM Reporting Lab: [facility] [id number] Performing Lab: [address] [place] [facility] [place] MBDA LC FREE,RAT IO [place] LIGHT CHAINS.RICHARD E/LAMBDA LIGHT CHAINS.RICHARD E [MASS RATIO] IN SERUM 0.55 0.26 - 1.65 12/18 Specimen Type: SERUM Comment: Free kappa/lambd a [...] therapy of these disorders. Test Performed by [employer] [employer], [address] [place] [address] Robert Swift M.D., Ph.D., Director of Laboratorie s , CLIA [id number] Ordering Provider: KAYLEY FITZGERALD Report Released Date/Time: November 21, 2023 12:19 PM Reporting Lab: [facility] [id number] Performing Lab: [address] [facility] LD,TOTAL LACTATE DEHYDROGEN ASE [ENZYMATIC ACTIVITY/V OLUME] IN SERUM OR PLASMA BY LACTATE TO PYRUVATE REACTION 131 U/L 125 - 220 12/18 Specimen Type: PLASMA No comment entered. Ordering Provider: KAYLEY FITZGERALD Report Released Date/Time: November 21, 2023 12:19 PM Reporting Lab: [facility] [id number] Performing Lab: [facility] [address] [facility] Vital Signs Combined list of inpatient and outpatient Vital Signs from Department of Defense and Veterans Affairs, ranging from 12 months to all on record, depending upon the facility. Vital Sign Value Date Comments Source WEIGHT 210.9 04/22/2024 14:27:18 [facility] BMI 33kg/m2 04/22/2024 14:27:18 [facility] PAIN 0 04/22/2024 14:27:18 [facility] HEIGHT 67.323 04/22/2024 14:27:18 [facility] TEMPERATURE 97.2 04/22/2024 14:27:18 [facility] ([facility]) RESPIRATION 16 04/22/2024 14:27:18 [facility] WEIGHT 212.4 04/11/2024 14:10:22 [facility] BMI 34kg/m2 04/11/2024 14:10:22 [facility] SYSTOLIC BLOOD PRESSURE 127 03/12/2024 13:58:11 [facility] DIASTOLIC BLOOD PRESSURE 72 03/12/2024 13:58:11 [facility] PULSE OXIMETRY 95 03/12/2024 13:58:11 [facility] WEIGHT 212.4 03/12/2024 13:58:11 [facility] BMI 34kg/m2 03/12/2024 13:58:11 [facility] PAIN 0 03/12/2024 13:58:11 [facility] TEMPERATURE 97.3 03/12/2024 13:58:11 [facility] PULSE 99 03/12/2024 13:58:11 [facility] RESPIRATION 22 03/12/2024 13:58:11 [facility] WEIGHT 215.5 02/14/2024 11:21:07 [facility] BMI 35kg/m2 02/14/2024 11:21:07 [facility] SYSTOLIC BLOOD PRESSURE 124 12/19/2023 13:35:05 [facility] DIASTOLIC BLOOD PRESSURE 76 12/19/2023 13:35:05 [facility] PULSE OXIMETRY 97 12/19/2023 13:35:05 [facility] WEIGHT 215.5 12/19/2023 13:35:05 [facility] BMI 35kg/m2 12/19/2023 13:35:05 [facility] PAIN 0 12/19/2023 13:35:05 [facility] TEMPERATURE 98 12/19/2023 13:35:05 [facility] PULSE 89 12/19/2023 13:35:05 [facility] RESPIRATION 25 12/19/2023 13:35:05 [facility] Encounters Combined list of: 1) Encounters from 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 2) Encounters from the Department of Defense facilities going back up to 280 months. Location Location Details Encounter Type Encounter Number Reason For Visit Attending Provider ADM Date DC Date Status Disposition Source [facility] Outpatient Encounter [id number] Diagnos is: ICD-10- CM C90.00 Multipl e myeloma not having achieve d remissi on
LISA SALGADO 12/12 [facility] [place] [facility] Outpatient Encounter [id number] LISA SALGADO 12/19 [facility] IS [facility] OFFICE O/P EST HI 40-54 MIN [id number] Diagnos is: ICD-10- CM C90.00 Multipl e myeloma not having achieve d remissi on
STEVEN RAGSDALE 01/10 [facility] [place] [facility] Outpatient Encounter [id number] 01/11 [facility] [place] [facility] Outpatient Encounter [id number] FRID,LISA CID Breanna 01/12 [place] [place] [facility] Outpatient Encounter [id number] Diagnos is: ICD-10- CM C90.00 Multipl e myeloma not having achieve d remissi on
FRID,LISA JOSE ROBERTO Carlos 02/09 [place] [facility] [place] [facility] Outpatient Encounter [id number] FRID,LISA CID Breanna 02/13 [place] [facility] [place] [facility] Outpatient Encounter [id number] Diagnos is: ICD-10- CM C90.00 Multipl e myeloma not having achieve d remissi on
FRID,LISA JOSE ROBERTO Carlos 03/[address] [facility] Outpatient Encounter [id number] FRID,LISA JOSE ROBERTO Carlos 03/[address] [facility] Outpatient Encounter [id number] 03/[address] [facility] Outpatient Encounter [id number] 04/10 [facility] ([facility]) OFFICE O/P EST HI 40-54 MIN [id number] Diagnos is: ICD-10- CM J44.1 Chronic obstruc tive pulmona ry disease w (acute) exacerb ation<b r/> KAIT SHELBY 04/10 [facility]) [facility] Outpatient Encounter [id number] Diagnos is: ICD-10- CM C90.00 Multipl e myeloma not having achieve d remissi on
FRID,LISA JOSE ROBERTO Carlos 04/[address] [facility] Outpatient Encounter [id number] FRID,LISA JOSE ROBERTO Carlos 04/[address] [facility] OFFICE O/P EST HI 40-54 MIN [id number] Diagnos is: ICD-10- CM C90.00 Multipl e myeloma not having achieve d remissi on
FRID,LISA CID Breanna 05/07 [facility] Outpatient Encounter [id number] 05/07 [facility] [place] [facility] Outpatient Encounter [id number] FRID,LISA Carlos 05/10 [facility] Outpatient Encounter [id number] 05/25 [facility] ([facility]) TELEHEALTH FACILITY FEE [id number] Diagnos is: ICD-10- CM C90.00 Multipl e myeloma not having achieve d remissi on
FRID,LISA CID Breanna 06/05 [facility] ([facility]) [facility] OFFICE O/P EST MOD 30-39 MIN [id number] Diagnos is: ICD-10- CM C90.00 Multipl e myeloma not having achieve d remissi on
FRID,LISA CID Breanna 06/05 [facility] Outpatient Encounter [id number] FRID,LISA CID Breanna 06/07 [facility] ([facility]) IMMUNIZATI ON ADMIN [id number] Diagnos is: ICD-10- CM Z23 Encount er for immuniz ation<b r/> RODGER KILPATRICK 06/11 [facility] ([facility]) [facility] Outpatient Encounter [id number] 06/21 [facility] Outpatient Encounter [id number] HORACE DOBSON 06/30 [facility] OFFICE O/P EST HI 40-54 MIN [id number] Diagnos is: ICD-10- CM C90.00 Multipl e myeloma not having achieve d remissi on
FRID,LISA CID L 07/04 [place] [facility] Outpatient Encounter [id number] FRID,LISA CID L 07/04 [place] [facility] Outpatient Encounter [id number] Diagnos is: ICD-10- CM N18.9 Chronic kidney disease , unspeci fied
JYOTI GREER Y 07/[address] [facility] OFFICE O/P EST HI 40 MIN [id number] Diagnos is: ICD-10- CM C90.00 Multipl e myeloma not having achieve d remissi on
FRID,LISA CID L 08/[address] [facility] Outpatient Encounter [id number] Diagnos is: ICD-10- CM N18.9 Chronic kidney disease , unspeci fied
JYOTI GREER Y 08/[address] [facility] Outpatient Encounter [id number] FRID,LISA CID L 08/01 [facility] OFFICE O/P EST HI 40 MIN [id number] Diagnos is: ICD-10- CM C90.00 Multipl e myeloma not having achieve d remissi on
FRID,LISA CID L 08/29 [place] [facility] Outpatient Encounter [id number] FRID,LISA CID L 08/[address] [facility] OFFICE O/P EST HI 40 MIN [id number] Diagnos is: ICD-10- CM C90.00 Multipl e myeloma not having achieve d remissi on
FRID,LISA CID L 09/25 [place] [facility] Outpatient Encounter [id number] LISA SALGADO 09/26 [place] [facility] ([facility]) OFFICE O/P EST HI 40 MIN [id number] Diagnos is: ICD-10- CM E11.9 Type 2 diabete s mellitu s without complic ations< br/> KAIT SHELBY 10/16 [facility]) [facility] OFFICE O/P EST HI 40 MIN [id number] Diagnos is: ICD-10- CM C90.00 Multipl e myeloma not having achieve d remissi on
LISA SALGADO Breanna 10/[address] [facility] Outpatient Encounter [id number] LISA SALGADO Breanna 10/24 [place] [facility] Outpatient Encounter [id number] 11/[address] [facility] CO/[place] DIFFUSE CAPACITY [id number] Diagnos is: ICD-10- CM J44.9 Chronic obstruc tive pulmona ry disease , unspeci fied
WRZOS,SARAH ANN 11/[address] [facility] OFF/OP CONSLTJ NEW/EST HI 55 [id number] Diagnos is: ICD-10- CM J44.9 Chronic obstruc tive pulmona ry disease , unspeci fied
WRZOSSARAH 11/[address] [facility] Outpatient Encounter [id number] 11/08 [place] [facility] [place] [facility] Outpatient Encounter [id number] 11/[address] [facility] MTMS BY PHARM ADDL 15 MIN [id number] Diagnos is: ICD-10- CM Z51.11 Encount er for antineo plastic chemoth erapy<b r/> WALESKA FITZGERALD 11/20 [place] [facility] [place] [facility] Outpatient Encounter [id number] WALESKA FITZGERALD 11/21 [place] [place] [facility] Outpatient Encounter [id number] 12/11 [place] [facility] [place] [facility] Outpatient Encounter [id number] 12/12 [place] [place] [facility] OFFICE O/P EST HI 40 MIN [id number] Diagnos is: ICD-10- CM C90.00 Multipl e myeloma not having achieve d remissi on
FRILISA Perez L 12/18 [place] [place] [facility] Outpatient Encounter [id number] LISA SALGADO 12/19 [place] [facility] [place] [facility] Outpatient Encounter [id number] HYACINTH MCGHEE 01/06 [place] [facility] [place] [facility] Outpatient Encounter [id number] 01/14 [place] [place] [facility] Outpatient Encounter [id number] 01/14 [place] [place] [facility] MTMS BY PHARM ADDL 15 MIN [id number] Diagnos is: ICD-10- CM Z51.11 Encount er for antineo plastic chemoth erapy<b r/> WALESKA FITZGERALD 01/15 [place] [facility] [place] [facility] Outpatient Encounter [id number] WALESKA FITZGERALD 01/16 [place] [facility] [place] [facility] Outpatient Encounter [id number] 01/23 [facility] MTMS BY PHARM EST 15 MIN [id number] Diagnos is: ICD-10- CM Z51.11 Encount er for antineo plastic chemoth erapy<b r/> WALESKA FITZGERALD 02/13 [place] [facility] Outpatient Encounter [id number] WALESKA FITZGERALD 02/13 [place] [facility] OFFICE O/P EST MOD 30 MIN [id number] Diagnos is: ICD-10- CM C90.00 Multipl e myeloma not having achieve d remissi on
CRISTIN PHILIPPE 03/[address] [facility] Outpatient Encounter [id number] LISA SALGADO 03/13 [place] [facility] Outpatient Encounter [id number] 03/19 [place] [facility] PRO PHONE CALL 11-20 MIN [id number] Diagnos is: ICD-10- CM C90.00 Multipl e myeloma not having achieve d remissi on
GEOFFABLINA, RODOLFO A 03/[address] [facility] MTMS BY PHARM EST 15 MIN [id number] Diagnos is: ICD-10- CM C90.00 Multipl e myeloma not having achieve d remissi on
WALESKA FITZGERALD 04/11 [place] [facility] Outpatient Encounter [id number] WALESKA FITZGERALD 04/11 [place] [facility] ([facility]) OFFICE O/P EST HI 40 MIN [id number] Diagnos is: ICD-10- CM Z00.00 Encntr for general adult medical exam w/o abnorma l finding s
KAIT SHELBY 04/22 [facility] ([facility] [place] [facility] MTMS BY PHARM EST 15 MIN [id number] Diagnos is: ICD-10- CM C90.00 Multipl e myeloma not having achieve d remissi on
WALESKA FITZGERALD 05/12 [place] [facility] [place] [facility] Outpatient Encounter [id number] WALESKA FITZGERALD 05/13 [facility] Social History Combined list of available smoking, tobacco, and other social history from Department of Defense and Veterans Affairs facilities. Social History Type Response Date Comment Sourc e Tobacco smoking status [place] FORMER USER 04/22/2024 [facility] ([facility]) History of tobacco use VA-TOBACCO QUIT 1 5 YRS OR MORE 04/22/2024 [facility] ([facility]) History of tobacco use VA-TOBACCO FORMER USER 04/10/2023 [facility] ([facility]) History of tobacco use VA-TOBACCO FORMER USER 03/30/2022 [facility] ([facility]) History of tobacco use VA-TOBACCO FORMER USER 03/30/2021 [facility] ([facility]) History of tobacco use VA-TOBACCO FORMER USER 03/16/2020 [facility] ([facility]) History of tobacco use VA-TOBACCO QUIT 5 TO < 15 YRS 08/22/2018 [facility] ([facility]) History of tobacco use FORMER TOBACCO US ER 7Y OR GREATER 01/24/2018 [facility] ([facility]) History of tobacco use FORMER TOBACCO US E >1Y <7Y 03/15/2017 [facility] ([facility]) History of tobacco use FORMER TOBACCO US E >1Y <7Y 11/16/2015 [facility] ([facility]) History of tobacco use FORMER TOBACCO US E >1Y <7Y 02/12/2015 [facility] ([facility]) History of tobacco use FORMER TOBACCO US E >1Y <7Y 02/12/2014 [facility] ([facility]) History of tobacco use FORMER TOBACCO US E >1Y <7Y 01/02/2013 [facility] ([facility]) History of tobacco use FORMER TOBACCO US E >1Y <7Y 03/27/2011 [facility] ([facility]) History of tobacco use FORMER TOBACCO USE <1Y 04/14/2010 [facility] ([facility]) History of tobacco use FORMER TOBACCO USE <1Y 06/15/2009 [facility] ([facility]) History of tobacco use FORMER TOBACCO USE <1Y 05/28/2008 [facility] ([facility]) Plan of Care List of future care activities from [facility] facilities. Additional future care activities may be listed in the Assessment and Plan section. Date/Time Care Activity Care Activity Detail Facili ty 06/12/2024 AMBULATORY - NONE AMBULATORY - NONE [facility] 06/12/2024 AMBULATORY - MEDICINE AMBULATORY - MEDICI [facility] 06/11/2024 Laboratory - Machine Grinder ry Order COMPREHENSIVE METABOLIC PANEL+MG PLASMA ON[facility] 06/11/2024 Laboratory - Machine Grinder ry Order CBC and DIFF BLOOD [facility] 06/11/2024 Laboratory - Machine Grinder ry Order TOTAL IMMUNOGLOB (IGA,IGG,IGM) PLASMA [facility] 06/11/2024 Laboratory - Machine Grinder ry Order ELP/IMMFIX,SERUM PANEL SERUM [facility] 06/11/2024 Laboratory - Machine Grinder ry Order PHOSPHORUS PLASMA [facility] 06/11/2024 Laboratory - Machine Grinder ry Order KAPPA/LAMBDA LC FREE,RATIO [facility] 06/11/2024 Laboratory - Machine Grinder ry Order LD,TOTAL PLASMA [facility] 06/11/2024 Laboratory - Machine Grinder ry Order URIC ACID PLASMA [facility] 06/11/2024 Laboratory - Machine Grinder ry Order TSH W/REFLEX TO FREE T4 PLASMA [facility] SP [facility] ([facility]) 06/11/2024 Laboratory - Machine Grinder ry Order LIPID PANEL,NON-FASTING PLASMA [facility] ([facility]) 06/11/2024 Laboratory - Machine Grinder ry Order HEMOGLOBIN A1C BLOOD [facility] SP [facility] ([facility]) 06/11/2024 Laboratory - Machine Grinder ry Order ALBUMIN/CREATININE RATIO URINE URINE SP ONCE [facility] ([facility])
--- OUTSIDE RECORDS SUMMARY | 2024-06-08 10:48 | XMS_ITS | Encounter Summary ---
Author Organization [facility] er Address [address] [place] [address] Care Team Providers Care Form Drafter Name Role Phone None, Pcp Primary Care Provider Unavailabl e Encounter Details Date Type Department Care Team (Late st Contact Info) Description 04/08/2024 Orders Only [facility] [address] [place] [address] Leslie Gauthier [address] [place] [address] Social History Tobacco Use Types Packs/Day Years Used Date Smoking Tobacco: Never Assessed PHQ-2 Answer Date Recorded PHQ-9 Total Score 2 04/09/2024 Sex and Gender Information Value Date Recorded Sex Assigned at Not on file Legal Sex Male 11:52 AM CDT Gender Identity Not on file Sexual Orientation Not on file documented as of this encounter Plan of Treatment Not on file documented as of this encounter Visit Diagnoses Not on filedocumented in this encounter Care Teams Form Drafter Relationship Specialty Start Date End Date None, Pcp [address] [place] [address] PCP - General Steam Fitter Supervisor Maintenance 04/09/24 documented as of this encounter
--- OUTSIDE RECORDS SUMMARY | 2024-06-08 10:48 | XMS_ITS | Clinical Summary ---
Author Organization [facility] er Address [address] [place] [address] Care Team Providers Care Draftsperson Name Role Phone None, Pcp Primary Care Provider Unavailabl e Medications albuterol HFA (PROVENTIL HFA;VENTOLIN HFA) 108 (90 Base) MCG/ACT inhaler Inhale 07/20/2023 Active aspirin 81 MG EC tablet Take 1 tablet (81 mg total) by mouth daily Active lisinopril-hydro CHLOROthiazide (ZESTORETIC) 20-12.5 MG per tablet Take 1 tablet by mouth daily Active loratadine (CLARITIN) 10 MG tablet Take 1 tablet (10 mg total) by mouth daily Active metFORMIN (GLUCOPHAGE) 1000 MG tablet Take 1 tablet (1,000 mg total) by mouth 2 times daily Active Mometasone Furoate 220 MCG/ACT aerosol powder Inhale daily Active Encounters Date Type Department Care Team Description 04/08/2024 Orders Only [facility] [address] [place], [place] [id number] Leslie Gauthier from Last 3 Months Social History Tobacco Use Types Packs/Day Years Used Date Smoking Tobacco: Never Assessed PHQ-2 Answer Date Recorded PHQ-9 Total Score 2 04/09/2024 Sex and Gender Information Value Date Recorded Sex Assigned at Not on file Legal Sex Male 11:52 AM CDT Gender Identity Not on file Sexual Orientation Not on file Plan of Treatment Health Maintenance Due Date Last Done Comments Pneumococcal Vaccine: 65+ Years (1 of 2 - PCV) 1952 Fall Risk Performed 1964 DTaP,Tdap,and Td Vaccines (2 - Td or Tdap) 05/08/2031 05/08/2021, 12/21/2005, 1991 Zoster Vaccines Completed 06/11/2023, 09/2022, 10/10/2007 COVID-19 Vaccine Completed 03/19/2024, 10/2022, 07/19/2022 Influenza Vaccine Completed 03/19/2024, , 05/22/2007, Additional history exists HPV Vaccines Aged Out No longer eligi ble based on patient's age to complete this topic Insurance [address] [place] [address] [facility] [employer] Care Teams Draftsperson Relationship Specialty Start Date End Date None, Pcp [address] [facility] [place] [address] PCP - General Remarketing Manager 04/09/24
[2024-06-08] MEDS: predniSONE 10 MG TABLET 50 MG PO (10:49)
[2024-06-08] MEDS: IPRAT-ALBUT 0.5-2.5 MG/3 ML NEB 1 NEB IH (10:49)
--- OUTSIDE RECORDS SUMMARY | 2024-06-08 10:49 | XMS_ITS | Encounter Summary ---
Author Name [facility] [place] [facility] [place] Address [address] [place] [address] Care Team Providers Care Baseball Inspector And Repairer Name Role Phone ALESHIA SHELBY Primary Care Provider Unavailabl e Insurance Providers: All historical and current Section [...] Name Patient's Relationship to Policy Colbert HUMANA [facility] ([facility]) MEDICARE ADVANTAGE [facility] ([facility]) Jul 09, 2022 [id number] [phone] DARIUS TIJERINA PATIENT [employer]MANA [facility] ([facility]) MEDICARE ADVANTAGE [facility] ([facility]) Jul 09, 2022 [id number] DARIUS TIJERINA PATIENT MEDICA [facility] ([facility]) MEDICARE ADVANTAGE [facility] ([facility]) Jul 09, 2018 [id number] [phone] DARIUS TIJERINA PATIENT [place] ([place] ([place]) PART A Aug 09, 2011 PART A [id number] [phone] DARIUS TIJERINA PATIENT MEDICARE ([facility]) MEDICARE ([place]) PART B Aug 09, 2011 PART B [id number] [phone] DARIUS TIJERINA PATIENT Selected Encounter This section includes the information on record at [place] for the Encounter. Date/Time Encounter Type Encounter Description Reason Provider Source Aug 01, 2023 11:00 AM OFFICE O/P EST HI 40 MIN ONCOLOGY/TUMOR ICD-10-CM C90.00 Multiple myeloma not having achieved remission JANE SALGADO [facility] Encounter Template Text not used by [place] Assessments - Encounter Diagnoses This section includes the primary and secondary diagnoses documented for the Encounter. Date/Time Primary/Secondary Diagnosis Diagnosis Name Provider Source Aug 01, 2023 11:57 AM PRIMARY Multiple myeloma not having achieved remission GIAAnaJANE [facility] Aug 01, 2023 11:57 AM SECONDARY Candidal stomatitis [facility] Aug 01, 2023 11:57 AM SECONDARY [facility], [facility] Aug 01, 2023 11:57 AM SECONDARY Familial hypophosphatemia [facility] Aug 01, 2023 11:57 AM SECONDARY Hypomagnesemia [facility] Plan of Treatment: Future Appointments (+ 6 months) and Future Tests (+/- 45 days) The Plan of Treatment section includes future care activities for the patient from all [place] [facility]. This section includes future appointments and future orders which are active, pending or scheduled. Future Appointments This section includes appointments that were scheduled to occur 6 months from the date of the Encounter, up to a maximum of 20 appointments. The data comes from all [place] treatment facilities. Appointment Date/Time Appointment Type Appointme nt Facility Name Aug 29, 2023 12:00 PM [facility] NONE [place] Aug 29, 2023 12:15 PM [facility] [place]ONE [facility] Aug 29, 2023 01:00 PM [facility] [place] Sep 26, 2023 12:30 PM [facility] Sep 26, 2023 01:30 PM [facility] Oct 17, 2023 01:30 PM [facility] - [facility]ICINE [facility] Oct 24, 2023 12:00 PM [facility] Oct 24, 2023 01:00 PM [facility] Nov 02, 2023 12:30 PM [facility] Nov 02, 2023 01:00 PM [facility] - MEDICINE [facility] Nov 02, 2023 02:00 PM AMBULATORY - MEDICINE [facility] November 21, 2023 11:30 AM [facility] Dec 19, 2023 01:00 PM [facility] Dec 19, 2023 02:00 PM [facility] Jan 16, 2024 11:00 AM AMBULATORY - NONE [facility] Lab Results: +/- 30 days of the encounter This section includes the Chemistry and Hematology Lab Results on record with [place] for the patient. Radiology Reports and Pathology Reports are provided separately, in subsequent sections. Lab Results This section contains the Chemistry/Hematology Results that were resulted 30 days before or 30 daysafter the date of the Encounter. Date/Time Source Result Type Result - Unit Interpretation Reference Range Comment Aug 29, 2023 01:[address] [facility] URINALYSIS Specimen Type: URINE No comment entered. Ordering Provider: JESSIE SANABRIA Report Released Date/Time: Aug 01, 2023 11:11 PM Reporting Lab: [facility] [phone] Performing Lab: [facility] [address] URINE COLOR LIGHT-YELLOW SPECIFIC GRAVITY 1.027 1.003-1.03 5 URINE BILIRUBIN NEGATIVE NEGATIVE URINE KETONES NEGATIVE NEGATIVE URINE GLUCOSE >1000 mg/dL URINE PROTEIN 10 mg/dL URINE PH 5.0 5.0-8.0 URINE WBC/HPF 3 /[HPF] 0-7 URINE BACTERIA NONE SEEN URINE RBC/HPF 1 /[HPF] 0-3 APPEARANCE CLEAR SQUAMOUS EPITHELIAL NONE SEEN /[HPF] URINE BLOOD TRACE NEGATIVE URINE NITRITE NEGATIVE NEGATIVE LEUKOCYTE ESTERASE NEGATIVE NEGATIVE Aug 29, 2023 11:46 AM [facility] KAPPA/LAMBDA LC FREE,RATIO Specimen Type: SERUM [...] therapy of these disorders. Test Performed by [facility], [employer] [facility], [address] [place] [address] Robert Swift M.D., Ph.D., Director of Laboratories , [place] [id number] Ordering Provider: JANE SALGADO Report Released Date/Time: Aug 01, 2023 11:24 AM Reporting Lab: [facility] [address] Performing Lab: [address] .KAPPA LT CHAIN,FREE 15.4 mg/L 3.3-19.4 .LAMBDA LC,FREE 39.8 mg/L H 5.7-26.3 .KAPPA/LAMBDA, FREE 0.39 0.26-1.65 Aug 29, 2023 11:46 AM [facility] ELP/IMMFIX,SERUM PANEL Specimen Type: SERUM Comment: Peak(s) too small to quantitate. IM FIX ADDED - Band(s) present. See Identification in report. Decreased gamma fraction may be seen in certain lymphoproliferat fay disorders. Recommend submitting a 24 hr urine for ELP and immunofixation tests. Ordering Provider: JANE SALGADO Report Released Date/Time: Aug 01, 2023 11:24 AM Reporting Lab: [facility] [address] Performing Lab: [facility] [address] PROTEIN,TOTAL 5.7 g/dL L 6.0-8.3 .IDENTIFICATIO N 1 IgA lambda .ALBUMIN FRACTION 3.60 g/dL L 3.66-4.78 .ALPHA 1 FRACTION 0.35 g/dL 0.14-0.38 .ALPHA 2 FRACTION 0.88 g/dL 0.50-0.90 .BETA 1 FRACTION 0.33 g/dL 0.33-0.55 .BETA 2 FRACTION 0.22 g/dL 0.20-0.52 .GAMMA FRACTION 0.31 g/dL L 0.58-1.72 .TOTAL PROTEIN 5.7 g/dL L 6.0-8.3 .INTERPRETATIO N MONOCLONAL Aug 29, 2023 11:46 AM [facility] TSH W/REFLEX TO FREE T4 Specimen Type: PLASMA No comment entered. Ordering Provider: JANE SALGADO Report Released Date/Time: Aug 01, 2023 11:24 AM Reporting Lab: [facility] [phone] Performing Lab: [facility] [phone] TSH 1.08 u[IU]/mL 0.35-4.94 Aug 29, 2023 11:46 AM [facility] PHOSPHORUS Specimen Type: PLASMA No comment entered. Ordering Provider: JANE SALGADO Report Released Date/Time: Aug 01, 2023 11:24 AM Reporting Lab: [facility] [phone] Performing Lab: [facility] [phone] PHOSPHORUS 3.8 mg/dL 2.3-4.7 Aug 29, 2023 11:46 AM [facility] URIC ACID Specimen Type: PLASMA No comment entered. Ordering Provider: JANE SALGADO Report Released Date/Time: Aug 01, 2023 11:24 AM Reporting Lab: [facility] [phone] Performing Lab: [facility] [address] URIC ACID 6.8 mg/dL 3.5-7.2 Aug 29, 2023 11:46 AM [facility] LD,TOTAL Specimen Type: PLASMA No comment entered. Ordering Provider: JANE SALGADO Report Released Date/Time: Aug 01, 2023 11:24 AM Reporting Lab: [facility] [phone] Performing Lab: [facility] [address] LD,TOTAL 123 U/L L 125-220 Aug 29, 2023 11:46 AM [facility] COMPREHENSIVE METABOLIC PANEL+MG Specimen Type: PLASMA No comment entered. Ordering Provider: JANE SALGADO Report Released Date/Time: Aug 01, 2023 11:24 AM Reporting Lab: [facility] [address] Performing Lab: [facility] [address] CREATININE 1.6 mg/dL H 0.7-1.2 UREA NITROGEN 35 mg/dL H 8-26 GLUCOSE 134 mg/dL H 70-100 SODIUM 139 mmol/L 136-145 POTASSIUM 4.0 mmol/L 3.5-5.1 CHLORIDE 112 mmol/L H 98-107 CO2 18 mmol/L L 22-29 CALCIUM 9.3 mg/dL 8.4-10.2 PROTEIN,TOTAL 6.1 g/dL 6.0-8.3 ALBUMIN 3.9 g/dL 3.5-5.2 BILIRUBIN, TOTAL 0.6 mg/dL 0.2-1.2 MAGNESIUM 1.9 mg/dL 1.6-2.6 ANION GAP 9 mmol/L 5-15 ALKALINE PHOSPHATASE 122 U/L 40-150 ALT/SGPT 34 U/L <55 AST/SGOT 13 U/L <34 .CREAT EGFR(CKD-EPI) 44 L >60 Aug 29, 2023 11:46 AM [facility] CBC & DIFF Specimen Type: BLOOD No comment entered. Ordering Provider: JANE SALGADO Report Released Date/Time: Aug 01, 2023 11:24 AM Reporting Lab: [facility] [phone] Performing Lab: [facility] [phone] WBC 4.10 10*3/uL 4.0-11.0 RBC 3.91 10*6/uL L 4.6-6.2 HGB 12.6 g/dL L 13.5-17.9 HCT 37.0 L 41-54 MCV 94.6 fL 80-100 MCH 32.2 pg 27-33 MCHC 34.1 g/dL 32.0-37.5 PLT 103 10*3/uL L 150-400 MPV 10.8 fL H 7.4-10.4 NEUT 62.7 40.0-80.0 LYMPHS 22.0 15.0-45.0 MONO 12.7 H 2.0-12.0 EOSINO 0.7 0.0-6.0 BASO 0.2 0.0-2.0 RDW 15.2 H 11.5-14.5 ABS LYMPH 0.90 10*3/uL L 1.0-4.0 ABS MONO 0.52 10*3/uL 0.1-1.0 ABS NEUT 2.57 10*3/uL 2.0-7.7 ABS EOS 0.03 10*3/uL 0-0.5 ABS BASO 0.01 10*3/uL 0-0.2 IG(META,MYELO, PRO) 1.7 ABS IMMATURE GRAN 0.07 10*3/uL 0-0.1 IPF 2.5 0-10 Aug 01, 2023 10:20 AM [facility] ELP/IMMFIX,URINE RANDOM PANEL Specimen Type: URINE Comment: Urine immunotyping performed. No monoclonal proteins identified. Ordering Provider: JYOTI GREER Report Released Date/Time: Jul 05, 2023 11:16 AM Reporting Lab: [facility] [phone] Performing Lab: [facility] [phone] PROTEIN,T. RANDOM UR 12.5 mg/dL <14.0 .INTERPRETATIO N,UR NO MONOCLONALS DETECTED Aug 01, 2023 10:20 AM [facility] ALBUMIN/CREATININE RATIO URINE Specimen Type: URINE No comment entered. Ordering Provider: JYOTI GREER Report Released Date/Time: Jul 05, 2023 11:16 AM Reporting Lab: [facility] [phone] Performing Lab: [facility] [phone] CREATININE,UR RANDOM 69.7 mg/dL 58.0-161.0 ALB/CREAT RATIO,UR 23.5 mg/g{creat} <29.9 ALBUMIN,UR 16.4 mg/L <29.9 Aug 01, 2023 10:20 AM [facility] PROTEIN/CREATININE RATIO URINE Specimen Type: URINE No comment entered. Ordering Provider: JYOTI GREER Report Released Date/Time: Jul 05, 2023 11:16 AM Reporting Lab: [facility] [phone] Performing Lab: [facility] [address] PROTEIN/CREATI NINE RATIO 0.18 <0.19 CREATININE,UR RANDOM 69.1 mg/dL 58.0-161.0 PROTEIN,T. RANDOM UR 12.5 mg/dL <14.0 Aug 01, 2023 10:20 AM [facility] URINALYSIS Specimen Type: URINE No comment entered. Ordering Provider: JYOTI GREER Report Released Date/Time: Jul 05, 2023 11:16 AM Reporting Lab: [facility] [phone] Performing Lab: [facility] [address] URINE COLOR LIGHT-YELLOW SPECIFIC GRAVITY 1.027 1.003-1.03 5 URINE BILIRUBIN NEGATIVE NEGATIVE URINE KETONES NEGATIVE NEGATIVE URINE GLUCOSE >1000 mg/dL URINE PROTEIN NEGATIVE mg/dL URINE PH 5.0 5.0-8.0 URINE WBC/HPF 1 /[HPF] 0-7 URINE BACTERIA NONE SEEN URINE RBC/HPF <1 /[HPF] 0-3 APPEARANCE CLEAR SQUAMOUS EPITHELIAL NONE SEEN /[HPF] URINE BLOOD TRACE NEGATIVE URINE NITRITE NEGATIVE NEGATIVE LEUKOCYTE ESTERASE NEGATIVE NEGATIVE Aug 01, 2023 09:56 AM [facility] KAPPA/LAMBDA LC FREE,RATIO Specimen Type: SERUM [...] therapy of these disorders. Test Performed by [facility], [facility], [address] [place] [address] Robert Swift M.D., Ph.D., Director of Laboratories , CLIA [id number] Ordering Provider: JANE SALGADO Report Released Date/Time: Jul 04, 2023 02:25 PM Reporting Lab: [facility] [phone] Performing Lab: [address] .KAPPA LT CHAIN,FREE 19.2 mg/L 3.3-19.4 .LAMBDA LC,FREE 42.6 mg/L H 5.7-26.3 .KAPPA/LAMBDA, FREE 0.45 0.26-1.65 Aug 01, 2023 09:56 AM [facility] ELP/IMMFIX,SERUM PANEL Specimen Type: SERUM Comment: IM FIX ADDED - Band(s) present. See Identification in report. Peak(s) too small to quantitate. Ordering Provider: JANE SALGADO Report Released Date/Time: Jul 04, 2023 02:25 PM Reporting Lab: [facility] [phone] Performing Lab: [facility] [phone] PROTEIN,TOTAL 6.0 g/dL 6.0-8.3 .IDENTIFICATIO N 1 IgA lambda .ALBUMIN FRACTION 3.98 g/dL 3.66-4.78 .ALPHA 1 FRACTION 0.28 g/dL 0.14-0.38 .ALPHA 2 FRACTION 0.74 g/dL 0.50-0.90 .BETA 1 FRACTION 0.43 g/dL 0.33-0.55 .BETA 2 FRACTION 0.25 g/dL 0.20-0.52 .GAMMA FRACTION 0.33 g/dL L 0.58-1.72 .TOTAL PROTEIN 6.0 g/dL 6.0-8.3 .INTERPRETATIO N MONOCLONAL Aug 01, 2023 09:56 AM [facility] COMPREHENSIVE METABOLIC PANEL+MG Specimen Type: PLASMA Comment: Automated Differential Performed Ordering Provider: JANE SALGADO Report Released Date/Time: Jul 04, 2023 02:25 PM Reporting Lab: [facility] [phone] Performing Lab: [facility] Aug 01, 2023 09:56 AM [facility] TSH W/REFLEX TO FREE T4 Specimen Type: PLASMA No comment entered. Ordering Provider: JANE SALGADO Report Released Date/Time: Jul 04, 2023 02:25 PM Reporting Lab: [facility] [phone] Performing Lab: [facility] [address] TSH 1.18 u[IU]/mL 0.35-4.94 Aug 01, 2023 09:56 AM [facility] URIC ACID Specimen Type: PLASMA No comment entered. Ordering Provider: JANE SALGADO Report Released Date/Time: Jul 04, 2023 02:25 PM Reporting Lab: [facility] [address] Performing Lab: [facility] [address] URIC ACID 6.9 mg/dL 3.5-7.2 Aug 01, 2023 09:56 AM [facility] RENAL FUNCTION PANEL Specimen Type: PLASMA Comment: Automated Differential Performed Ordering Provider: JYOTI GREER Report Released Date/Time: Jul 05, 2023 11:16 AM Reporting Lab: [facility] [phone] Performing Lab: [facility] Aug 01, 2023 09:56 AM [facility] LD,TOTAL Specimen Type: PLASMA No comment entered. Ordering Provider: JANE SALGADO Report Released Date/Time: Jul 04, 2023 02:25 PM Reporting Lab: [facility] [phone] Performing Lab: [facility] [address] LD,TOTAL 109 U/L L 125-220 Aug 01, 2023 09:56 AM [facility] CBC & DIFF Specimen Type: BLOOD Comment: Automated Differential Performed Ordering Provider: JANE SALGADO Report Released Date/Time: Jul 04, 2023 02:25 PM Reporting Lab: [facility] [phone] Performing Lab: [facility] [phone] WBC 4.33 10*3/uL 4.0-11.0 RBC 4.10 10*6/uL L 4.6-6.2 HGB 13.1 g/dL L 13.5-17.9 HCT 39.2 L 41-54 MCV 95.6 fL 80-100 MCH 32.0 pg 27-33 MCHC 33.4 g/dL 32.0-37.5 PLT 104 10*3/uL L 150-400 MPV 10.2 fL 7.4-10.4 NEUT 64.8 40.0-80.0 LYMPHS 20.3 15.0-45.0 MONO 12.5 H 2.0-12.0 EOSINO 0.5 0.0-6.0 BASO 0.7 0.0-2.0 RDW 14.6 H 11.5-14.5 ABS LYMPH 0.88 10*3/uL L 1.0-4.0 ABS MONO 0.54 10*3/uL 0.1-1.0 ABS NEUT 2.81 10*3/uL 2.0-7.7 ABS EOS 0.02 10*3/uL 0-0.5 ABS BASO 0.03 10*3/uL 0-0.2 IG(META,MYELO, PRO) 1.2 ABS IMMATURE GRAN 0.05 10*3/uL 0-0.1 Jul 04, 2023 12:57 PM [facility] KAPPA/LAMBDA LC FREE,RATIO Specimen Type: SERUM [...] therapy of these disorders. Test Performed by [facility], [employer] [facility], [address] [place] [address] Robert Swift M.D., Ph.D., Director of Laboratories , [place] [id number] Ordering Provider: JANE SALGADO Report Released Date/Time: Jun 05, 2023 01:14 PM Reporting Lab: [facility] [phone] Performing Lab: [address] .KAPPA LT CHAIN,FREE 25.9 mg/L H 3.3-19.4 .LAMBDA LC,FREE 56.3 mg/L H 5.7-26.3 .KAPPA/LAMBDA, FREE 0.46 0.26-1.65 Jul 04, 2023 12:57 PM [facility] ELP/IMMFIX,SERUM PANEL Specimen Type: SERUM Comment: IM FIX ADDED - Band(s) present. See Identification in report. Peak(s) too small to quantitate. Ordering Provider: JANE SALGADO Report Released Date/Time: Jun 05, 2023 01:14 PM Reporting Lab: [facility] [address] Performing Lab: [facility] [address] PROTEIN,TOTAL 6.2 g/dL 6.0-8.3 .IDENTIFICATIO N 1 IgA lambda .ALBUMIN FRACTION 3.97 g/dL 3.66-4.78 .ALPHA 1 FRACTION 0.30 g/dL 0.14-0.38 .ALPHA 2 FRACTION 0.89 g/dL 0.50-0.90 .BETA 1 FRACTION 0.42 g/dL 0.33-0.55 .BETA 2 FRACTION 0.29 g/dL 0.20-0.52 .GAMMA FRACTION 0.33 g/dL L 0.58-1.72 .TOTAL PROTEIN 6.2 g/dL 6.0-8.3 .INTERPRETATIO N MONOCLONAL Jul 04, 2023 12:57 PM [facility] TSH W/REFLEX TO FREE T4 Specimen Type: PLASMA Comment: Automated Differential Performed Ordering Provider: JANE SALGADO Report Released Date/Time: Jun 05, 2023 01:14 PM Reporting Lab: [facility] [address] Performing Lab: [facility] [address] TSH 1.64 u[IU]/mL 0.35-4.94 Jul 04, 2023 12:57 PM [facility] URIC ACID Specimen Type: PLASMA No comment entered. Ordering Provider: JANE SALGADO Report Released Date/Time: Jun 05, 2023 01:14 PM Reporting Lab: [facility] [phone] Performing Lab: [facility] [address] URIC ACID 7.3 mg/dL H 3.5-7.2 Jul 04, 2023 12:57 PM [facility] PHOSPHORUS Specimen Type: PLASMA No comment entered. Ordering Provider: JANE SALGADO Report Released Date/Time: Jun 05, 2023 01:14 PM Reporting Lab: [facility] [phone] Performing Lab: [facility] [address] PHOSPHORUS 2.5 mg/dL 2.3-4.7 Jul 04, 2023 12:57 PM [facility] CBC & DIFF Specimen Type: BLOOD Comment: Automated Differential Performed Ordering Provider: JANE SALGADO Report Released Date/Time: Jun 05, 2023 01:14 PM Reporting Lab: [facility] [address] Performing Lab: [facility] [address] WBC 4.29 10*3/uL 4.0-11.0 RBC 3.95 10*6/uL L 4.6-6.2 HGB 13.0 g/dL L 13.5-17.9 HCT 39.2 L 41-54 MCV 99.2 fL 80-100 MCH 32.9 pg 27-33 MCHC 33.2 g/dL 32.0-37.5 PLT 123 10*3/uL L 150-400 MPV 10.0 fL 7.4-10.4 NEUT 52.2 40.0-80.0 LYMPHS 26.3 15.0-45.0 MONO 10.3 2.0-12.0 EOSINO 8.4 H 0.0-6.0 BASO 1.9 0.0-2.0 RDW 14.6 H 11.5-14.5 ABS LYMPH 1.13 10*3/uL 1.0-4.0 ABS MONO 0.44 10*3/uL 0.1-1.0 ABS NEUT 2.24 10*3/uL 2.0-7.7 ABS EOS 0.36 10*3/uL 0-0.5 ABS BASO 0.08 10*3/uL 0-0.2 IG(META,MYELO, PRO) 0.9 ABS IMMATURE GRAN 0.04 10*3/uL 0-0.1 Jul 04, 2023 12:57 PM [facility] COMPREHENSIVE METABOLIC PANEL+MG Specimen Type: PLASMA Comment: Automated Differential Performed Ordering Provider: JANE SALGADO Report Released Date/Time: Jun 05, 2023 01:14 PM Reporting Lab: [facility] [address] Performing Lab: [facility] [address] CREATININE 2.0 mg/dL H 0.7-1.2 UREA NITROGEN 19 mg/dL 8-26 GLUCOSE 133 mg/dL H 70-100 SODIUM 143 mmol/L 136-145 POTASSIUM 4.1 mmol/L 3.5-5.1 CHLORIDE 109 mmol/L H 98-107 CO2 21 mmol/L L 22-29 CALCIUM 9.4 mg/dL 8.4-10.2 PROTEIN,TOTAL 6.6 g/dL 6.0-8.3 ALBUMIN 4.1 g/dL 3.5-5.2 BILIRUBIN, TOTAL 0.6 mg/dL 0.2-1.2 MAGNESIUM 2.1 mg/dL 1.6-2.6 ANION GAP 13 mmol/L 5-15 ALKALINE PHOSPHATASE 138 U/L 40-150 ALT/SGPT 31 U/L <55 AST/SGOT 23 U/L <34 .CREAT EGFR(CKD-EPI) 34 L >60 Vital Signs: All taken on the encounter date This section contains inpatient and outpatient Vital Signs collected on the date of the Encounter. Date/Time Temperature Pulse Blood Pressure Respiratory Rate SP02 Pain Height Weight Body Mass Index Source Aug 01, 2023 10:18 AM 97.7 F 97 /min 139/75 mm[Hg] 80 /min 96 % 0 213.3 lb [facility] Encounter Notes: All associated encounter notes This section contains the clinical notes associated to the Encounter. Date/Time Encounter Note(s) Provider Source Aug 01, 2023 11:42 AM HEMATOLOGY AND ONC OLOGY ATTENDING NOTE: LOCAL TITLE: HEME/ONC CLINIC NOTE STANDARD TITLE: HEMATOLOGY AND ONCOLOGY ATTENDING NOTE DATE OF NOTE: AUG 01, 2023@11:42 ENTRY DATE: AUG 01, 2023@11:43 AUTHOR: JANE SALGADO EXP COSIGNER: URGENCY: STATUS: COMPLETED HEME/ONC CLINIC [...] mid foot bilat persists using an OTC [place] balm he feels really helps ([place] intranet [...] - Fat pad : negative Cytogenetic studies ([id number] from 04/08/2018) on bone marrow aspirate done at [facility] in [place], [place] reportedly show the following FISH results: FISH RESULTS: Summary of FISH results: Gain of 1q Absent FGFR3/IGH rearrangement t(4;14) Absent CCND1/IGH rearrangement t(11;14) Present Deletion 13q, 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 The other IGH translocation probes showed [...] REMS survey -Provider complete REMS survey: auth [id number] - [place] will continue 81mg ASA Plan RTC in 4 weeks in [facility] as he was not an overall fan of [facility], Phone clinic phased out post pandemic and [facility] and [facility] equidistant he prefers [facility] as then he can go see [place]. 2. Renal insufficiency: creatinine variable-was up to 2.0, 1.6 today. Placed Renal consult as does have DM type II and myeloma well managed and Renal most suspecting of CKD in the setting of DM, per there notations low suspicion for myeloma affect/involvement. 3. 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 Prior reports of [...] No change to current plan of care /mindy/ JANE SALGADO APRN CLINICAL NURSE SPECIALIST Signed: 08/02/2023 17:25 08/06/2023 ADDENDUM STATUS: COMPLETED Free light chain ratio remains within nornal limis. Continue current plan of care /mindy/ JANE SALGADO APRN CLINICAL NURSE SPECIALIST Signed: 08/06/2023 09:15 JANE SALGADO [facility] Aug 01, 2023 10:18 AM INTERNAL MEDICINE [...] they take some outside medications and/or herbals. /mnidy/ CHAY ROSE LPN Licensed Practical Nurse Signed: 08/01/2023 10:19 CHAY ROSE [facility]
--- OUTSIDE RECORDS SUMMARY | 2024-06-08 10:49 | XMS_ITS | Encounter Summary ---
Author Name [facility] [place] [facility] [place] Address [address] [place] [address] Care Team Providers Care [facility] Name Role Phone ALESHIA SHELBY Primary Care [...] Name Patient's Relationship to Policy Colbert HUMANA [facility] ([facility] MEDICARE ADVANTAGE [facility] ([facility] Jul 09, 2022 [id number] DARIUS TIJERINA PATIENT HUMANA [facility] ([facility] MEDICARE ADVANTAGE [facility] ([facility] Jul 09, 2022 [id number] [phone] DARIUS TIJERINA PATIENT MEDICA [facility] ([facility] MEDICARE ADVANTAGE [facility] ([facility] Jul 09, 2018 [id number] [phone] DARIUS TIJERINA PATIENT MEDICARE (WN) MEDICARE (M) PART A Aug 09, 2011 PART A [id number] [phone] DARIUS TIJERINA PATIENT MEDICARE ([facility] MEDICARE ([place]) PART B Aug 09, 2011 PART B [id number] [phone] DARIUS TIJERINA PATIENT Selected Encounter This section includes the information on record at [place] for the Encounter. Date/Time Encounter Type Encounter Description Reason Provider Source Sep 26, 2023 01:30 PM OFFICE O/P EST HI 40 MIN ONCOLOGY/TUMOR ICD-10-CM C90.00 Multiple myeloma not having achieved remission JANE SALGADO [facility] Encounter Template Text not used by [place] Assessments - Encounter Diagnoses This section includes the primary and secondary diagnoses documented for the Encounter. Date/Time Primary/Secondary Diagnosis Diagnosis Name Provider Source Sep 26, 2023 06:10 PM PRIMARY Multiple myeloma not having achieved remission [facility] Sep 26, 2023 06:10 PM SECONDARY Chronic kidney disease, unspecified [facility] Sep 26, 2023 06:10 PM SECONDARY Chronic obstructive pulmonary disease, unspecified [facility] Sep 26, 2023 06:10 PM SECOND[facility] Sep 26, 2023 06:10 PM SECOND[facility]agnes[facility] Plan of Treatment: Future Appointments (+ 6 months) and Future Tests (+/- 45 days) The Plan of Treatment section includes future care activities for the patient from [facility] [place] [facility]. This section includes future appointments and future orders which are active, pending or scheduled. Future Appointments This section includes appointments that were scheduled to occur 6 months from the date of the Encounter, up to a maximum of 20 appointments. The data comes from all [facility]. Appointment Date/Time Appointment Type Appointme nt Facility Name Oct 17, 2023 01:30 PM AMBULATORY - MEDICINE [facility] Oct 24, 2023 12:00 PM [facility] NONE [facility] Oct 24, 2023 01:00 PM [facility] Nov 02, 2023 12:30 PM [facility] Nov 02, 2023 01:00 PM [facility] Nov 02, 2023 02:00 PM [facility] November 21, 2023 11:30 AM [facility]ONE [facility] Dec 19, 2023 01:00 PM [facility] Dec 19, 2023 02:00 PM [facility] Jan 16, 2024 11:00 AM AM[facility]ORY - NONE [facility] Jan 31, 2024 05:50 PM AMBULATORY - REHAB [facility] Feb 14, 2024 11:00 AM [facility] NONE [facility] Mar 12, 2024 01:30 PM [facility] - NONE [facility] Mar 12, 2024 02:30 PM [facility] Mar 28, 2024 09:30 AM AMBULATORY - REHAB [facility] Lab Results: +/- 30 days of the encounter This section includes the Chemistry and Hematology Lab Results on record with [place] for the patient. Radiology Reports and Pathology Reports are provided separately, in subsequent sections. Lab Results This section contains the Chemistry/Hematology Results that were resulted 30 days before or 30 daysafter the date of the Encounter. Date/Time Source Result Type Result - Unit Interpretation Reference Range Comment Oct 24, 2023 12:12 PM [facility] KAPPA/LAMBDA LC FREE,RATIO Specimen Type: SERUM [...] therapy of these disorders. Test Performed by OrthoconElsy, MD.[facility], [address] [place] [address] Robert Swift M.D., Ph.D., Director of Laboratories , [place] [id number] Ordering Provider: JANE SALGADO Report Released Date/Time: Sep 26, 2023 01:45 PM Reporting Lab: [facility] [address] Performing Lab: [address] .KAPPA LT CHAIN,FREE 15.4 mg/L 3.3-19.4 .LAMBDA LC,FREE 35.4 mg/L H 5.7-26.3 .KAPPA/LAMBDA, FREE 0.44 0.26-1.65 Oct 24, 2023 12:12 PM [facility] ELP/IMMFIX,SERUM PANEL Specimen Type: SERUM Comment: Automated Differential Performed Ordering Provider: JANE SALGADO Report Released Date/Time: Sep 26, 2023 01:45 PM Reporting Lab: [facility] [phone] Performing Lab: [facility] [address] PROTEIN,TOTAL 6.0 g/dL 6.0-8.3 .IDENTIFICATIO N 1 IgA lambda .ALBUMIN FRACTION 4.01 g/dL 3.66-4.78 .ALPHA 1 FRACTION 0.23 g/dL 0.14-0.38 .ALPHA 2 FRACTION 0.73 g/dL 0.50-0.90 .BETA 1 FRACTION 0.42 g/dL 0.33-0.55 .BETA 2 FRACTION 0.31 g/dL 0.20-0.52 .GAMMA FRACTION 0.29 g/dL L 0.58-1.72 .TOTAL PROTEIN 6.0 g/dL 6.0-8.3 .INTERPRETATIO N MONOCLONAL Oct 24, 2023 12:12 PM [facility] TSH W/REFLEX TO FREE T4 Specimen Type: PLASMA Comment: Automated Differential Performed Ordering Provider: JANE SALGADO Report Released Date/Time: Sep 26, 2023 01:45 PM Reporting Lab: [facility] [id number] Performing Lab: [facility] [id number] TSH 0.87 u[IU]/mL 0.35-4.94 Oct 24, 2023 12:12 PM [facility] URIC ACID Specimen Type: PLASMA No comment entered. Ordering Provider: JANE SALGADO Report Released Date/Time: Sep 26, 2023 01:45 PM Reporting Lab: [facility] [phone] Performing Lab: [facility] [address] URIC ACID 8.0 mg/dL H 3.5-7.2 Oct 24, 2023 12:12 PM [facility] LD,TOTAL Specimen Type: PLASMA No comment entered. Ordering Provider: JANE SALGADO Report Released Date/Time: Sep 26, 2023 01:45 PM Reporting Lab: [facility] [address] Performing Lab: [facility] [address] LD,TOTAL 115 U/L L 125-220 Oct 24, 2023 12:12 PM [facility] COMPREHENSIVE METABOLIC PANEL+MG Specimen Type: PLASMA Comment: Automated Differential Performed Ordering Provider: JANE SALGADO Report Released Date/Time: Sep 26, 2023 01:45 PM Reporting Lab: [facility] [address] Performing Lab: [facility] [address] CREATININE 1.7 mg/dL H 0.7-1.2 UREA NITROGEN 31 mg/dL H 8-26 GLUCOSE 240 mg/dL H 70-100 SODIUM 140 mmol/L 136-145 POTASSIUM 3.7 mmol/L 3.5-5.1 CHLORIDE 106 mmol/L 98-107 CO2 22 mmol/L 22-29 CALCIUM 9.0 mg/dL 8.4-10.2 PROTEIN,TOTAL 6.4 g/dL 6.0-8.3 ALBUMIN 4.1 g/dL 3.5-5.2 BILIRUBIN, TOTAL 0.6 mg/dL 0.2-1.2 MAGNESIUM 2.0 mg/dL 1.6-2.6 ANION GAP 12 mmol/L 5-15 ALKALINE PHOSPHATASE 115 U/L 40-150 ALT/SGPT 31 U/L <55 AST/SGOT 20 U/L <34 .CREAT EGFR(CKD-EPI) 41 L >60 Oct 24, 2023 12:12 PM [facility] HEMOGLOBIN A1C Specimen Type: BLOOD Comment: Values obtained from A1C measurements can vary. For typical A1C assays, a reported value of 7.0 could actually be between 6.7 and 7.3 if measured by a reference method. A reported value of 9.0 could actually be between 8.7 and 9.3. Ref: http://www.ngsp. org/CAPdata.asp Ordering Provider: ALESHIA SHELBY Report Released Date/Time: Oct 17, 2023 02:46 PM Reporting Lab: [facility] [address] Performing Lab: [facility] [address] HEMOGLOBIN A1C 6.5 H 4.0-6.0 Oct 24, 2023 12:12 PM [facility] CBC & DIFF Specimen Type: BLOOD Comment: Automated Differential Performed Ordering Provider: JANE SALGADO Report Released Date/Time: Sep 26, 2023 01:45 PM Reporting Lab: [facility] [address] Performing Lab: [facility] [address] WBC 3.26 10*3/uL L 4.0-11.0 RBC 3.67 10*6/uL L 4.6-6.2 HGB 11.8 g/dL L 13.5-17.9 HCT 36.3 L 41-54 MCV 98.9 fL 80-100 MCH 32.2 pg 27-33 MCHC 32.5 g/dL 32.0-37.5 PLT 106 10*3/uL L 150-400 MPV 10.6 fL H 7.4-10.4 NEUT 63.3 40.0-80.0 LYMPHS 19.3 15.0-45.0 MONO 15.6 H 2.0-12.0 EOSINO 0.3 0.0-6.0 BASO 0.3 0.0-2.0 RDW 15.9 H 11.5-14.5 ABS LYMPH 0.63 10*3/uL L 1.0-4.0 ABS MONO 0.51 10*3/uL 0.1-1.0 ABS NEUT 2.06 10*3/uL 2.0-7.7 ABS EOS 0.01 10*3/uL 0-0.5 ABS BASO 0.01 10*3/uL 0-0.2 IG(META,MYELO, PRO) 1.2 ABS IMMATURE GRAN 0.04 10*3/uL 0-0.1 Sep 26, 2023 12:24 PM [facility] KAPPA/LAMBDA LC FREE,RATIO Specimen Type: SERUM [...] therapy of these disorders. Test Performed by [facility]ocon [facility], MD.[facility], [address] [place] [address] Robert Swift M.D., Ph.D., Director of Laboratories , CLIA [id number] Ordering Provider: JANE SALGADO Report Released Date/Time: Aug 29, 2023 01:22 PM Reporting Lab: [facility] [phone] Performing Lab: [address] .KAPPA LT CHAIN,FREE 26.4 mg/L H 3.3-19.4 .LAMBDA LC,FREE 57.2 mg/L H 5.7-26.3 .KAPPA/LAMBDA, FREE 0.46 0.26-1.65 Sep 26, 2023 12:24 PM [facility] ELP/IMMFIX,SERUM PANEL Specimen Type: SERUM Comment: IM FIX ADDED - Band(s) present. See Identification in report. Ordering Provider: JANE SALGADO Report Released Date/Time: Aug 29, 2023 01:22 PM Reporting Lab: [facility] [phone] Performing Lab: [facility] [address] PROTEIN,TOTAL 6.2 g/dL 6.0-8.3 .IDENTIFICATIO N 1 IgA lambda .IDENTIFICATIO N 2 IgM kappa .ALBUMIN FRACTION 4.04 g/dL 3.66-4.78 .ALPHA 1 FRACTION 0.29 g/dL 0.14-0.38 .ALPHA 2 FRACTION 0.88 g/dL 0.50-0.90 .BETA 1 FRACTION 0.41 g/dL 0.33-0.55 .BETA 2 FRACTION 0.25 g/dL 0.20-0.52 .GAMMA FRACTION 0.33 g/dL L 0.58-1.72 .TOTAL PROTEIN 6.2 g/dL 6.0-8.3 .INTERPRETATIO N BICLONAL Sep 26, 2023 12:24 PM [facility] TSH W/REFLEX TO FREE T4 Specimen Type: PLASMA Comment: Automated Differential Performed Ordering Provider: JANE SALGADO Report Released Date/Time: Aug 29, 2023 01:22 PM Reporting Lab: [facility] [address] Performing Lab: [facility] [address] TSH 1.67 u[IU]/mL 0.35-4.94 Sep 26, 2023 12:24 PM [facility] URIC ACID Specimen Type: PLASMA No comment entered. Ordering Provider: JANE SALGADO Report Released Date/Time: Aug 29, 2023 01:22 PM Reporting Lab: [facility] [address] Performing Lab: [facility] [address] URIC ACID 7.7 mg/dL H 3.5-7.2 Sep 26, 2023 12:24 PM [facility] LD,TOTAL Specimen Type: PLASMA No comment entered. Ordering Provider: JANE SALGADO Report Released Date/Time: Aug 29, 2023 01:22 PM Reporting Lab: [facility] [address] Performing Lab: [facility] [address] LD,TOTAL 127 U/L 125-220 Sep 26, 2023 12:24 PM [facility] COMPREHENSIVE METABOLIC PANEL+MG Specimen Type: PLASMA Comment: Automated Differential Performed Ordering Provider: JANE SALGADO Report Released Date/Time: Aug 29, 2023 01:22 PM Reporting Lab: [facility] [address] Performing Lab: [facility] [address] CREATININE 1.8 mg/dL H 0.7-1.2 UREA NITROGEN 20 mg/dL 8-26 GLUCOSE 118 mg/dL H 70-100 SODIUM 138 mmol/L 136-145 POTASSIUM 3.9 mmol/L 3.5-5.1 CHLORIDE 105 mmol/L 98-107 CO2 22 mmol/L 22-29 CALCIUM 9.3 mg/dL 8.4-10.2 PROTEIN,TOTAL 6.6 g/dL 6.0-8.3 ALBUMIN 4.2 g/dL 3.5-5.2 BILIRUBIN, TOTAL 0.8 mg/dL 0.2-1.2 MAGNESIUM 1.8 mg/dL 1.6-2.6 ANION GAP 11 mmol/L 5-15 ALKALINE PHOSPHATASE 137 U/L 40-150 ALT/SGPT 29 U/L <55 AST/SGOT 30 U/L <34 .CREAT EGFR(CKD-EPI) 38 L >60 Sep 26, 2023 12:24 PM [facility] CBC & DIFF Specimen Type: BLOOD Comment: Automated Differential Performed Ordering Provider: JANE SALGADO Report Released Date/Time: Aug 29, 2023 01:22 PM Reporting Lab: [facility] [address] Performing Lab: [facility] [address] WBC 3.18 10*3/uL L 4.0-11.0 RBC 4.04 10*6/uL L 4.6-6.2 HGB 13.1 g/dL L 13.5-17.9 HCT 39.0 L 41-54 MCV 96.5 fL 80-100 MCH 32.4 pg 27-33 MCHC 33.6 g/dL 32.0-37.5 PLT 116 10*3/uL L 150-400 MPV 10.0 fL 7.4-10.4 NEUT 51.1 40.0-80.0 LYMPHS 29.6 15.0-45.0 MONO 7.9 2.0-12.0 EOSINO 7.9 H 0.0-6.0 BASO 1.9 0.0-2.0 RDW 15.9 H 11.5-14.5 ABS LYMPH 0.94 10*3/uL L 1.0-4.0 ABS MONO 0.25 10*3/uL 0.1-1.0 ABS NEUT 1.63 10*3/uL L 2.0-7.7 ABS EOS 0.25 10*3/uL 0-0.5 ABS BASO 0.06 10*3/uL 0-0.2 IG(META,MYELO, PRO) 1.6 ABS IMMATURE GRAN 0.05 10*3/uL 0-0.1 Aug 29, 2023 01:06 PM [facility] URINALYSIS Specimen Type: URINE No comment entered. Ordering Provider: JESSIE SANABRIA Report Released Date/Time: Aug 01, 2023 11:11 PM Reporting Lab: [facility] [address] Performing Lab: [facility] [address] URINE COLOR LIGHT-YELLOW SPECIFIC GRAVITY 1.027 1.003-1.03 [...] NEGATIVE NEGATIVE Aug 29, 2023 11:46 AM [facility] KAPPA/LAMBDA LC FREE,RATIO Specimen Type: SERUM [...] therapy of these disorders. Test Performed by [facility]ocon[facility] HospitalValdese, MD.[facility], [address] [place] [address] Robert Swift M.D., Ph.D., Director of Laboratories , [place] [id number] Ordering Provider: JANE SALGADO Report Released Date/Time: Aug 01, 2023 11:24 AM Reporting Lab: [facility] [phone] Performing Lab: [facility] [id number] [place] [address] .KAPPA LT CHAIN,FREE 15.4 mg/L 3.3-19.4 .LAMBDA LC,FREE 39.8 mg/L H 5.7-26.3 .KAPPA/LAMBDA, FREE 0.39 0.26-1.65 Aug 29, 2023 11:46 AM [facility] ELP/IMMFIX,SERUM PANEL Specimen Type: SERUM Comment: Peak(s) too small to quantitate. IM FIX ADDED - Band(s) present. See Identification in report. Decreased gamma fraction may be seen in certain lymphoproliferat fay disorders. Recommend submitting a 24 hr urine for ELP and immunofixation tests. Ordering Provider: JANE SALGADO Report Released Date/Time: Aug 01, 2023 11:24 AM Reporting Lab: [facility] [address] Performing Lab: [facility] [address] PROTEIN,TOTAL 5.7 g/dL L 6.0-8.3 .IDENTIFICATIO N 1 IgA lambda .ALBUMIN FRACTION 3.60 g/dL L 3.66-4.78 .ALPHA 1 FRACTION 0.35 g/dL 0.14-0.38 .ALPHA 2 FRACTION 0.88 g/dL 0.50-0.90 .BETA 1 FRACTION 0.33 g/dL 0.33-0.55 .BETA 2 FRACTION 0.22 g/dL 0.20-0.52 .GAMMA FRACTION 0.31 g/dL L 0.58-1.72 .TOTAL PROTEIN 5.7 g/dL L 6.0-8.3 .INTERPRETATIO N MONOCLONAL Aug 29, 2023 11:46 AM [facility] TSH W/REFLEX TO FREE T4 Specimen Type: PLASMA No comment entered. Ordering Provider: JANE SALGADO Report Released Date/Time: Aug 01, 2023 11:24 AM Reporting Lab: [facility] [address] Performing Lab: [facility] [address] TSH 1.08 u[IU]/mL 0.35-4.94 Aug 29, 2023 11:46 AM [facility] URIC ACID Specimen Type: PLASMA No comment entered. Ordering Provider: JANE SALGADO Report Released Date/Time: Aug 01, 2023 11:24 AM Reporting Lab: [facility] [address] Performing Lab: [facility] [address] URIC ACID 6.8 mg/dL 3.5-7.2 Aug 29, 2023 11:46 AM [facility] LD,TOTAL Specimen Type: PLASMA No comment entered. Ordering Provider: JANE SALGADO Report Released Date/Time: Aug 01, 2023 11:24 AM Reporting Lab: [facility] [address] Performing Lab: [facility] [address] LD,TOTAL 123 U/L L 125-220 Aug 29, 2023 11:46 AM [facility] PHOSPHORUS Specimen Type: PLASMA No comment entered. Ordering Provider: JANE SALGADO Report Released Date/Time: Aug 01, 2023 11:24 AM Reporting Lab: [facility] [address] Performing Lab: [facility] [address] PHOSPHORUS 3.8 mg/dL 2.3-4.7 Aug 29, 2023 11:46 AM [facility] COMPREHENSIVE METABOLIC PANEL+MG Specimen Type: PLASMA No comment entered. Ordering Provider: JANE SALGADO Report Released Date/Time: Aug 01, 2023 11:24 AM Reporting Lab: [facility] [address] Performing Lab: [facility] [address] CREATININE 1.6 mg/dL H 0.7-1.2 UREA NITROGEN [...] L >60 Aug 29, 2023 11:46 AM [facility] CBC & DIFF Specimen Type: BLOOD No comment entered. Ordering Provider: JANE SALGADO Report Released Date/Time: Aug 01, 2023 11:24 AM Reporting Lab: [facility] [address] Performing Lab: [facility] [address] WBC 4.10 10*3/uL 4.0-11.0 RBC 3.91 10*6/uL [...] GRAN 0.07 10*3/uL 0-0.1 IPF 2.5 0-10 Vital Signs: All taken on the encounter date This section contains inpatient and outpatient Vital Signs collected on the date of the Encounter. Date/Time Temperature Pulse Blood Pressure Respiratory Rate SP02 Pain Height Weight Body Mass Index Source Sep 26, 2023 01:19 PM 97.4 108 108/67 [address] [facility] Encounter Notes: All associated encounter notes This section contains the clinical notes associated to the Encounter. Date/Time Encounter Note(s) Provider Source Sep 27, 2023 05:32 PM ADDENDUM: LOCAL TITLE: Addendum STANDARD TITLE: ADDENDUM DATE OF NOTE: SEP 27, 2023@17:32:31 ENTRY DATE: SEP 27, 2023@17:32:32 AUTHOR: LETTY MORENO EXP COSIGNER: URGENCY: STATUS: COMPLETED No changes for spep. The bands were not quantifiable. Can monitor. If it comes back, can consider repeat marrow and ct scan. /es/ Letty Moreno MD HEM/ONC STAFF PHYSICIAN Signed: 09/27/2023 17:33 Receipt Acknowledged By: 09/27/2023 17:50 /mindy/ JANE SALGADO APRN CLINICAL NURSE SPECIALIST --- Original Document --- 09/26/23 HEME/ONC CLINIC NOTE: Diagnosis: IgA lamda Multiple myeloma Treatment: current [...] maintenance Rev/Dex in 08/2019 Reports today for [id number] his last revlimid today TODAY Feeling back at his baseline post influenza [facility] when he had influenzas, nothing now. Denies vision changes, falls, gait or cognition alterations. No OC mass or mucositis to report. No nystatin swish and spit this month but has if he needs it. He does check for cervical, axillary and inguinal LAD and has none to report. SOB back to baseline after influenza. Cough persist but no longer productive. He is quit SOB and is adherent to his inhaler utilization Denies vomiting/nausea. Denies changes to his baseline bowel or bladder pattern. No reports of bleeding. Bruises easily but this is not new. Denies bone or joint pain. Denies the presence of LE edema or calf pain. 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 Denies fever, chills, night sweats, unplanned wt. [...] - Fat pad : negative Cytogenetic studies ([id number] from 04/08/2018) on bone marrow aspirate done at [facility] in [place], [place] reportedly show the following FISH results: FISH RESULTS: Summary of FISH results: Gain of 1q Absent FGFR3/IGH rearrangement t(4;14) Absent CCND1/IGH rearrangement t(11;14) Present Deletion 13q, loss of 13 Absent IGH/MAF rearrangement t(14;16) Absent IGH/MAFB rearrangement t(14;20) Absent TP53 Deletion (17p) Absent FISH RESULTS: nuc idris(CDKN2C,CKS1B) x2[100] nuc idris(CAHD1y9,IGHx3~4) [87/100] nuc idris(RBOD5i2,IGHx4)(CCND1 con IGHx2)[61/100]/ (CCNDx2,IGHx3)(CCND1 con IGHx1)[16/100]/ (CCND1,IGH) x3(CCND1 con IGHx2) [12/100] nuc idris([id number]/D13S25,13qter)x2 [100] nuc idris(IGHx3~4,MAFBx2)[88/100] nuc idris(IGHx3~4,MAFx2)[84/100] nuc idris(TP53,D17Z1)x2[100] [...] the International Myel[employer] Working [employer] and the [facility]. The other IGH translocation probes showed extra [...] EXAM ======= A&O in NAD VS Temperature: 97.4 F [36.3 C] (09/26/2023 13:19) Blood Pressure: 108/67 (09/26/2023 13:19) Pulse: 108 (09/26/2023 13:19) Respiration: 22 (09/26/2023 13:19) Pain: 0 (09/26/2023 13:19) Pulse Oximetry: 95% (09/26/2023 13:19)Weight-Last 3: Measurement DT WEIGHT 09/26/2023 13:19 211(95.71)[34*] 08/29/2023 12:42 213.1(96.66)[34*] 08/01/2023 10:18 213.3(96.75)[34*] ECO PERRLA, Sclera anicteric OC/OP: No evidence of mass, mucositis or thrush Neck: No appreciable LAD or mass Chest: HRR, LS CTA. he is SOB working to ambulkate the clinic Abd: soft n/t BS +x4 No appreciable edema in the extremities No visible hematoma or mass LABS Today's Labs: PROTEIN,TOTAL: 6.2 GLUCOSE: 118 H TSH: 1.67 UREA NITROGEN: 20 CREATININE: 1.8 H CREATININE EGFR (CKD-EPI): 38 L SODIUM: 138 POTASSIUM: 3.9 CHLORIDE: 105 CO2: 22 CALCIUM: 9.3 MAGNESIUM: 1.8 ANION GAP: 11 URIC ACID: 7.7 H ALBUMIN: 4.2 BILIRUBIN,TOTAL: 0.8 ALKALINE PHOSPHATASE(37C): 137 SGOT(37C): 30 SGPT(37C): 29 LD,TOTAL(37C P-L): 127 WBC: 3.18 L SEGS: 51.1 LYMPHS: 29.6 MONOCYTES: 7.9 EOSINO: 7.9 H BASO: 1.9 NEUTROPHIL, ABSOLUTE: 1.63 L EOSINO, ABSOLUTE: 0.25 BASO, ABSOLUTE: 0.06 MONOCYTE, ALTERNATE ABS: 0.25 LYMPHS, ALTERNATE ABS: 0.94 L I.6 IG,ABSOLUTE: 0.05 RBC: 4.04 L HGB: 13.1 L HCT: 39.0 L MCV: 96.5 MCH: 32.4 MCHC: 33.6 RDW: 15.9 H PLT: 116 L MPV: 10.0 Discussed today Oncology imaging ======= 05/07/23 PET scan results are as follows: Impression: No new FDG avid lesions to suggest disease progression. Mild heterogenous FDG uptake along the right 6th rib, not dramatically changed compared to prior. Results discussed previously ASSESSMENT/PLAN: 1. 78y/o M with IgA lambda multiple myeloma, s/p [...] REMS survey -Provider complete REMS survey: auth [id number] - will continue 81mg ASA Plan RTC in 4 weeks in [facility] as he was not an overall fan of [facility], Phone clinic phased out post pandemic and [facility] and [facility] equidistant he prefers [facility] as then he can go see [place] when [place]. 2. Renal insufficiency: creatinine variable-was up to 2.0, 1.8today. Placed Renal consult as does have DM type II and myeloma well managed and Renal most suspecting of CKD in the setting of DM, per their notations low suspicion for myeloma affect/involvement. Monitor 3. Historic hypomag- on mag oxide-repleted [place] will continue-has supply 4. Prior reports of thrush-on decadron-has a supply of nystatin if needed 5. Hypo phosphorus- using 1KPhos packet a day now and repleted 6. intermittently elevated uric acid-some foot pain- did not tolerate allopurinol and foot pain is managed with OTC cream trend 7. SOB-has been for all the time I have known him now but seem to have less activity tolerance over the last year despite adherence to inhalers. He requests another Pulmonary referral to see if there is anything new which I place today 45 min spent in review, direct care, coordination and documentation /es/ JANE SALGADO APRN CLINICAL NURSE SPECIALIST Signed: 09/26/2023 18:10 09/27/2023 ADDENDUM STATUS: COMPLETED with IgA myeloma on maintance revlimid whose SPEP for over 2 years has been IgA bands too small to count now reflects as biclonal with an IgM as well Collection time: Sep 26, 2023@12:24 Test Name Result Units Range --------- ------ ----- ----- .INTERPRETATION BICLONAL .IDENTIFICATION 1 IgA lambda .IDENTIFICATION 2 IgM kappa .ALBUMIN FRACTION 4.04 g/dL 3.66 - 4.78 .ALPHA 1 FRACTION 0.29 g/dL 0.14 - 0.38 .ALPHA 2 FRACTION 0.88 g/dL 0.50 - 0.90 .BETA 1 FRACTION 0.41 g/dL 0.33 - 0.55 .BETA 2 FRACTION 0.25 g/dL 0.20 - 0.52 .GAMMA FRACTION 0.33 L g/dL 0.58 - 1.72 .TOTAL PROTEIN 6.2 g/dL 6.0 - 8.3 Comments: IM FIX ADDED - Band(s) present. See Identification in report. Tagging MD Moreno-any action at this time? is planned for RTC and repeat SPEP in 1 month. /mindy/ JANE SALGADO APRN CLINICAL NURSE SPECIALIST Signed: 09/27/2023 17:30 Receipt Acknowledged By: 09/27/2023 17:47 /mindy/ Letty Moreno MD HEM/ONC STAFF PHYSICIAN LETTY MORENO [facility] Sep 27, 2023 05:27 PM ADDENDUM: LOCAL TITLE: Addendum STANDARD TITLE: ADDENDUM DATE OF NOTE: SEP 27, 2023@17:27:57 ENTRY DATE: SEP 27, 2023@17:27:58 AUTHOR: JANE SALGADO EXP COSIGNER: URGENCY: STATUS: COMPLETED with IgA myeloma on maintance revlimid whose SPEP for over 2 years has been IgA bands too small to count now reflects as biclonal with an IgM as well Collection time: Sep 26, 2023@12:24 Test Name Result Units Range --------- ------ ----- ----- .INTERPRETATION BICLONAL .IDENTIFICATION 1 IgA lambda .IDENTIFICATION 2 IgM kappa .ALBUMIN FRACTION 4.04 g/dL 3.66 - 4.78 .ALPHA 1 FRACTION 0.29 g/dL 0.14 - 0.38 .ALPHA 2 FRACTION 0.88 g/dL 0.50 - 0.90 .BETA 1 FRACTION 0.41 g/dL 0.33 - 0.55 .BETA 2 FRACTION 0.25 g/dL 0.20 - 0.52 .GAMMA FRACTION 0.33 L g/dL 0.58 - 1.72 .TOTAL PROTEIN 6.2 g/dL 6.0 - 8.3 Comments: IM FIX ADDED - Band(s) present. See Identification in report. Tagging MD Moreno-any action at this time? is planned for RTC and repeat SPEP in 1 month. /mindy/ JANE SALGADO APRN CLINICAL NURSE SPECIALIST Signed: 09/27/2023 17:30 Receipt Acknowledged By: 09/27/2023 17:47 /mindy/ Letty Moreno MD HEM/ONC STAFF PHYSICIAN --- Original Document --- 09/26/23 HEME/ONC CLINIC NOTE: Diagnosis: IgA lamda Multiple myeloma Treatment: current [...] maintenance Rev/Dex in 08/2019 Reports today for safecc-do-zcyf his last revlimid today TODAY Feeling back at his baseline post influenza [facility] when he had influenzas, nothing now. Denies vision changes, falls, gait or cognition alterations. No OC mass or mucositis to report. No nystatin swish and spit this month but has if he needs it. He does check for cervical, axillary and inguinal LAD and has none to report. SOB back to baseline after influenza. Cough persist but no longer productive. He is quit SOB and is adherent to his inhaler utilization Denies vomiting/nausea. Denies changes to his baseline bowel or bladder pattern. No reports of bleeding. Bruises easily but this is not new. Denies bone or joint pain. Denies the presence of LE edema or calf pain. 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 Denies fever, chills, night sweats, unplanned wt. [...] - Fat pad : negative Cytogenetic studies ([id number] from 04/08/2018) on bone marrow aspirate done at [facility] in [place], [place] reportedly show the following FISH results: FISH RESULTS: Summary of FISH results: Gain of 1q Absent FGFR3/IGH rearrangement t(4;14) Absent CCND1/IGH rearrangement t(11;14) Present Deletion 13q, loss of 13 Absent IGH/MAF rearrangement t(14;16) Absent IGH/MAFB rearrangement t(14;20) Absent TP53 Deletion (17p) Absent FISH RESULTS: nuc idris(CDKN2C,CKS1B) x2[100] nuc idris(TIOS9s3,IGHx3~4) [87/100] nuc idris(RTFO7b5,IGHx4)(CCND1 con IGHx2)[61/100]/ (CCNDx2,IGHx3)(CCND1 con IGHx1)[16/100]/ (CCND1,IGH) x3(CCND1 con IGHx2) [12/100] nuc idris(K25Q351/D13S25,13qter)x2 [100] nuc idris(IGHx3~4,MAFBx2)[88/100] nuc idris(IGHx3~4,MAFx2)[84/100] nuc idris(TP53,D17Z1)x2[100] [...] the International Myeloma Working Group and the [facility]. The other IGH translocation probes showed extra [...] EXAM ======= A&O in NAD VS Temperature: 97.4 F [36.3 C] (09/26/2023 13:19) Blood Pressure: 108/67 (09/26/2023 13:19) Pulse: 108 (09/26/2023 13:19) Respiration: 22 (09/26/2023 13:19) Pain: 0 (09/26/2023 13:19) Pulse Oximetry: 95% (09/26/2023 13:19)Weight-Last 3: Measurement DT WEIGHT 09/26/2023 13:19 211(95.71)[34*] 08/29/2023 12:42 213.1(96.66)[34*] 08/01/2023 10:18 213.3(96.75)[34*] ECO PERRLA, Sclera anicteric OC/OP: No evidence of mass, mucositis or thrush Neck: No appreciable LAD or mass Chest: HRR, LS CTA. he is SOB working to ambulkate the clinic Abd: soft n/t BS +x4 No appreciable edema in the extremities No visible hematoma or mass LABS Today's Labs: PROTEIN,TOTAL: 6.2 GLUCOSE: 118 H TSH: 1.67 UREA NITROGEN: 20 CREATININE: 1.8 H CREATININE EGFR (CKD-EPI): 38 L SODIUM: 138 POTASSIUM: 3.9 CHLORIDE: 105 CO2: 22 CALCIUM: 9.3 MAGNESIUM: 1.8 ANION GAP: 11 URIC ACID: 7.7 H ALBUMIN: 4.2 BILIRUBIN,TOTAL: 0.8 ALKALINE PHOSPHATASE(37C): 137 SGOT(37C): 30 SGPT(37C): 29 LD,TOTAL(37C P-L): 127 WBC: 3.18 L SEGS: 51.1 LYMPHS: 29.6 MONOCYTES: 7.9 EOSINO: 7.9 H BASO: 1.9 NEUTROPHIL, ABSOLUTE: 1.63 L EOSINO, ABSOLUTE: 0.25 BASO, ABSOLUTE: 0.06 MONOCYTE, ALTERNATE ABS: 0.25 LYMPHS, ALTERNATE ABS: 0.94 L I.6 IG,ABSOLUTE: 0.05 RBC: 4.04 L HGB: 13.1 L HCT: 39.0 L MCV: 96.5 MCH: 32.4 MCHC: 33.6 RDW: 15.9 H PLT: 116 L MPV: 10.0 Discussed today Oncology imaging ======= 05/07/23 PET scan results are as follows: Impression: No new FDG avid lesions to suggest disease progression. Mild heterogenous FDG uptake along the right 6th rib, not dramatically changed compared to prior. Results discussed previously ASSESSMENT/PLAN: 1. 78y/o M with IgA lambda multiple myeloma, s/p [...] REMS survey -Provider complete REMS survey: auth [id number] - [place] will continue 81mg ASA Plan RTC in 4 weeks in [facility] as he was not an overall fan of [facility], Phone clinic phased out post [facility] and [facility] and [facility] equidistant he prefers [facility] as then he can go see [place]. 2. Renal insufficiency: creatinine variable-was up to 2.0, 1.8today. Placed Renal consult as does have DM type II and myeloma well managed and Renal most suspecting of CKD in the setting of DM, per their notations low suspicion for myeloma affect/involvement. Monitor 3. 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 Prior reports of thrush-on decadron-has a supply of nystatin if needed 5. Hypo phosphorus- using 1KPhos packet a day now and repleted 6. intermittently elevated uric acid-some foot pain- did not tolerate allopurinol and foot pain is managed with OTC cream trend 7. SOB-has been for all the time I have known him now but seem to have less activity tolerance over the last year despite adherence to inhalers. He requests another Pulmonary referral to see if there is anything new which I place today 45 min spent in review, direct care, coordination and documentation /es/ JANE SALGADO APRN CLINICAL NURSE SPECIALIST Signed: 09/26/2023 18:10 09/27/2023 ADDENDUM STATUS: COMPLETED No changes for spep. The bands were not quantifiable. Can monitor. If it comes back, can consider repeat marrow and ct scan. /es/ Letty Moreno MD HEM/ONC STAFF PHYSICIAN Signed: 09/27/2023 17:33 Receipt Acknowledged By: * AWAITING SIGNATURE * JANE SALGADO [facility] Sep 26, 2023 06:01 PM HEMATOLOGY AND ONC OLOGY ATTENDING NOTE: LOCAL TITLE: HEME/ONC CLINIC NOTE STANDARD TITLE: HEMATOLOGY AND ONCOLOGY ATTENDING NOTE DATE OF NOTE: SEP 26, 2023@18:01 ENTRY DATE: SEP 26, 2023@18:01:36 AUTHOR: JANE SALGADO EXP COSIGNER: URGENCY: STATUS: [...] maintenance Rev/Dex in 08/2019 Reports today for vmlmzp-rz-gxwm his last revlimid today TODAY Feeling back at his baseline post influenza [facility] when he had influenzas, nothing now. Denies vision changes, falls, gait or cognition alterations. No OC mass or mucositis to report. No nystatin swish and spit this month but has if he needs it. He does check for cervical, axillary and inguinal LAD and has none to report. SOB back to baseline after influenza. Cough persist but no longer productive. He is quit SOB and is adherent to his inhaler utilization Denies vomiting/nausea. Denies changes to his baseline bowel or bladder pattern. No reports of bleeding. Bruises easily but this is not new. Denies bone or joint pain. Denies the presence of LE edema or calf pain. 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 Denies fever, chills, night sweats, unplanned wt. [...] - Fat pad : negative Cytogenetic studies [id number] from 04/08/2018) on bone marrow aspirate done at [facility] in [place], [place] reportedly show the following FISH results: FISH RESULTS: Summary of FISH results: Gain of 1q Absent FGFR3/IGH rearrangement t(4;14) Absent CCND1/IGH rearrangement t(11;14) Present Deletion 13q, loss of 13 Absent IGH/MAF rearrangement t(14;16) Absent IGH/MAFB rearrangement t(14;20) Absent TP53 Deletion (17p) Absent FISH RESULTS: nuc idris(CDKN2C,CKS1B) x2[100] nuc idris(KZYV6x1,IGHx3~4) [87/100] nuc idris(FWVS9o1,IGHx4)(CCND1 con IGHx2)[61/100]/ (CCNDx2,IGHx3)(CCND1 con IGHx1)[16/100]/ (CCND1,IGH) x3(CCND1 con IGHx2) [12/100] nuc idris(V70Q626/D13S25,13qter)x2 [100] nuc idris(IGHx3~4,MAFBx2)[88/100] nuc idris(IGHx3~4,MAFx2)[84/100] nuc idris(TP53,D17Z1)x2[100] [...] the International Myeloma Working Group and the [facility]. The other IGH translocation probes showed extra [...] EXAM ======= A&O in NAD VS Temperature: 97.4 F [36.3 C] (09/26/2023 13:19) Blood Pressure: 108/67 (09/26/2023 13:19) Pulse: 108 (09/26/2023 13:19) Respiration: 22 (09/26/2023 13:19) Pain: 0 (09/26/2023 13:19) Pulse Oximetry: 95% (09/26/2023 13:19)Weight-Last 3: Measurement DT WEIGHT 09/26/2023 13:19 211(95.71)[34*] 08/29/2023 12:42 213.1(96.66)[34*] 08/01/2023 10:18 213.3(96.75)[34*] ECO PERRLA, Sclera anicteric OC/OP: No evidence of mass, mucositis or thrush Neck: No appreciable LAD or mass Chest: HRR, LS CTA. he is SOB working to ambulkate the clinic Abd: soft n/t BS +x4 No appreciable edema in the extremities No visible hematoma or mass LABS Today's Labs: PROTEIN,TOTAL: 6.2 GLUCOSE: 118 H TSH: 1.67 UREA NITROGEN: 20 CREATININE: 1.8 H CREATININE EGFR (CKD-EPI): 38 L SODIUM: 138 POTASSIUM: 3.9 CHLORIDE: 105 CO2: 22 CALCIUM: 9.3 MAGNESIUM: 1.8 ANION GAP: 11 URIC ACID: 7.7 H ALBUMIN: 4.2 BILIRUBIN,TOTAL: 0.8 ALKALINE PHOSPHATASE(37C): 137 SGOT(37C): 30 SGPT(37C): 29 LD,TOTAL(37C P-L): 127 WBC: 3.18 L SEGS: 51.1 LYMPHS: 29.6 MONOCYTES: 7.9 EOSINO: 7.9 H BASO: 1.9 NEUTROPHIL, ABSOLUTE: 1.63 L EOSINO, ABSOLUTE: 0.25 BASO, ABSOLUTE: 0.06 MONOCYTE, ALTERNATE ABS: 0.25 LYMPHS, ALTERNATE ABS: 0.94 L I.6 IG,ABSOLUTE: 0.05 RBC: 4.04 L HGB: 13.1 L HCT: 39.0 L MCV: 96.5 MCH: 32.4 MCHC: 33.6 RDW: 15.9 H PLT: 116 L MPV: 10.0 Discussed today Oncology imaging ======= 05/07/23 PET scan results are as follows: Impression: No new FDG avid lesions to suggest disease progression. Mild heterogenous FDG uptake along the right 6th rib, not dramatically changed compared to prior. Results discussed previously ASSESSMENT/PLAN: 1. 78y/o M with IgA lambda multiple myeloma, s/p [...] REMS survey -Provider complete REMS survey: auth [id number] - [place] will continue 81mg ASA Plan RTC in 4 weeks in [facility] as he was not an overall fan of [facility], Phone clinic phased out post pandemic and [facility] and [facility] equidistant he prefers [facility] as then he can go see his daughter when in the [facility]. 2. Renal insufficiency: creatinine variable-was up to 2.0, 1.8today. Placed Renal consult as does have DM type II and myeloma well managed and Renal most suspecting of CKD in the setting of DM, per their notations low suspicion for myeloma affect/involvement. Monitor 3. Historic hypomag- on mag oxide-repleted [place] will continue-has supply 4. Prior reports of thrush-on decadron-has a supply of nystatin if needed 5. Hypo phosphorus- using 1KPhos packet a day now and repleted 6. intermittently elevated uric acid-some foot pain- did not tolerate allopurinol and foot pain is managed with OTC cream trend 7. SOB-has been for all the time I have known him now but seem to have less activity tolerance over the last year despite adherence to inhalers. He requests another Pulmonary referral to see if there is anything new which I place today 45 min spent in review, direct care, coordination and documentation /es/ JANE SALGADO APRN CLINICAL NURSE SPECIALIST Signed: 09/26/2023 18:10 09/27/2023 ADDENDUM STATUS: COMPLETED with IgA myeloma on maintance revlimid whose SPEP for over 2 years has been IgA bands too small to count now reflects as biclonal with an IgM as well Collection time: Sep 26, 2023@12:24 Test Name Result Units Range --------- ------ ----- ----- .INTERPRETATION BICLONAL .IDENTIFICATION 1 IgA lambda .IDENTIFICATION 2 IgM kappa .ALBUMIN FRACTION 4.04 g/dL 3.66 - 4.78 .ALPHA 1 FRACTION 0.29 g/dL 0.14 - 0.38 .ALPHA 2 FRACTION 0.88 g/dL 0.50 - 0.90 .BETA 1 FRACTION 0.41 g/dL 0.33 - 0.55 .BETA 2 FRACTION 0.25 g/dL 0.20 - 0.52 .GAMMA FRACTION 0.33 L g/dL 0.58 - 1.72 .TOTAL PROTEIN 6.2 g/dL 6.0 - 8.3 Comments: IM FIX ADDED - Band(s) present. See Identification in report. Tagging MD Moreno-any action at this time? is planned for RTC and repeat SPEP in 1 month. /mindy/ JANE SALGAOD APRN CLINICAL NURSE SPECIALIST Signed: 09/27/2023 17:30 Receipt Acknowledged By: 09/27/2023 17:47 /mindy/ Letty Moreno MD HEM/ONC STAFF PHYSICIAN 09/27/2023 ADDENDUM STATUS: COMPLETED No changes for spep. The bands were not quantifiable. Can monitor. If it comes back, can consider repeat marrow and ct scan. /rahel Moreno MD HEM/ONC STAFF PHYSICIAN Signed: 09/27/2023 17:33 Receipt Acknowledged By: 09/27/2023 17:50 /mindy/ JANE SALGADO APRN CLINICAL NURSE SPECIALIST 10/01/2023 ADDENDUM STATUS: COMPLETED Collection time: Sep 26, 2023@12:24 Test Name Result Units Range --------- ------ ----- ----- .KAPPA LT CHAIN,FREE 26.4 H mg/L 3.3 - 19.4 .LAMBDA LC,FREE 57.2 H mg/L 5.7 - 26.3 .KAPPA/LAMBDA,FREE 0.46 0.26 - 1.65 Ratio still WNL-continue follow-up as planned /es/ JANE SALGADO APRN CLINICAL NURSE SPECIALIST Signed: 10/01/2023 08:04 JANE SALGADO [facility] Sep 26, 2023 01:20 PM INTERNAL MEDICINE OUTPATIENT NOTE: LOCAL TITLE: MEDICINE CLINIC NURSING NOTE STANDARD TITLE: INTERNAL MEDICINE OUTPATIENT NOTE DATE OF NOTE: SEP 26, 2023@13:20 ENTRY DATE: SEP 26, 2023@13:20:57 AUTHOR: JEREMY CASTILLO EXP COSIGNER: URGENCY: STATUS: COMPLETED TYPE OF VISIT: Appointment Check In Type of appointment: In-person appointment REASON FOR VISIT: rtc ALLERGIES: ATORVASTATIN (Aug 17, 2015) SIMVASTATIN (Aug 17, 2015) VITAL SIGNS: Blood Pressure: 108/67 (09/26/2023 13:19) Pulse: 108 (09/26/2023 13:19) Respiration: 22 (09/26/2023 13:19) Temperature: 97.4 F [36.3 C] (09/26/2023 13:19) Weight: 211 lb [95.71 kg] (09/26/2023 13:19) Height: 66 in [167.6 cm] (05/07/2023 14:10) BMI: 34.1 O2 Sat: 95% (09/26/2023 13:19) Pain: 0 (09/26/2023 13:19) PAIN SCREEN: Patient is not having significant pain that they wish to discuss with their provider today. MEDICATION Over the Counter/Herbal Medications: The patient states that they take some outside medications and/or herbals. /mindy/ JEREMY CASTILLO LPN, LPN Signed: 09/26/2023 13:21 JEREMY CASTILLO [facility]
--- OUTSIDE RECORDS SUMMARY | 2024-06-08 10:49 | XMS_ITS | Encounter Summary ---
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 SWALLOW WHOLE WITH EWATER*FOR DOCUMENTATION ONLY-FILLED BY [facility]* 7) MAGNESIUM OXIDE 420MG TAB Qty: 100 for ACTIVE (S) Issu:09-25-23 50 days Sig: TAKE ONE TABLET BY MOUTH Refills: 2 Last:11-05-23 TWICE A DAY FOR LOW MAGNESIUM Expr:09-25-24 8) METFORMIN HCL 1000MG TAB Qty: 90 for 90 ACTIVE Issu:04-10-23 days Sig: TAKE ONE TABLET BY MOUTH Refills: 2 Last:08-23-23 EVERY DAY TO DECREASE BLOOD SUGAR Expr:04-10-24 9) MOMETASONE 100MCG/ACTUAT 120D ORAL INHL ACTIVE Issu:04-10-23 Qty: 3 for 90 days Sig: INHALE 2 Refills: 2 Last:06-29-23 PUFFS BY MOUTH TWICE A DAY FOR COPD Expr:04-10-24 10) NYSTATIN [id number] UNT/ML SUSP Qty: 480 ACTIVE Issu:03-09-23 for 24 days Sig: TAKE 1 TEASPOONFUL Refills: 3 Last:03-13-23 BY MOUTH FOUR TIMES A DAY FOR Expr:03-09-24 INTERMITTENT THRUSH * MAKE SURE YOU SWISH AND THEN SWALLOW* 11) OLODATEROL/TIOTROP 2.5MCG/ACTUAT 60D INH ACTIVE Issu:04-10-23 Qty: 1 for 30 days Sig: INHALE 2 Refills: 6 Last:10-11-23 PUFFS BY INHALATION EVERY DAY TO Expr:04-10-24 PREVENT TROUBLE BREATHING 12) PHOS 250/POTASS 280/NA 160MG PKT PWDR ACTIVE Issu:07-17-23 Qty: 100 for 50 days Sig: TAKE 1 Refills: 1 Last:08-27-23 PACKET BY MOUTH TWICE A DAY *MIX Expr:07-17-24 PACKET WITH 2.5 ML OF WATER OR JUICE. STIR WELL AND DRINK PROMPTLY 13) PROCHLORPERAZINE MALEATE 10MG TAB Qty: HOLD Issu:11-21-22 60 for 30 days Sig: TAKE ONE TABLET Refills: 1 BY MOUTH EVERY 6 HOURS NEEDED FOR Expr:11-22-23 NAUSEA AND VOMITING. DO NOT TAKE MORE THAN 40 MG PER DAY. Issue Date Status Last Fill Inactive Outpatient Medications Refills Expiration 1) ALLOPURINOL 100MG TAB Qty: 30 for 30 DISCONTINUED Issu:11-14-22 days Sig: TAKE 50MG BY MOUTH EVERY (EDIT) Last:11-14-22 DAY ELEVATED URIC ACID Refills: 3 Expr:11-15-23 2) ALLOPURINOL 100MG TAB Qty: 30 for 60 DISCONTINUED Issu:11-14-22 days Sig: TAKE ONE-HALF TABLET BY Refills: 3 Last:11-14-22 MOUTH EVERY DAY ELEVATED URIC ACID Expr:11-15-23 3) DEXAMETHASONE 4MG TAB Qty: 20 for 28 DISCONTINUED Issu:08-30-23 days Sig: TAKE FIVE TABLETS BY MOUTH Refills: 0 Last:08-30-23 EVERY WEEK WITH FOOD OR MILK. THIS IS Expr:09-29-23 A COMPONENT OF A CHEMOTHERAPY REGIMEN. 4) LENALIDOMIDE 10MG CAP Qty: 21 for 28 DISCONTINUED Issu:08-30-23 days Sig: TAKE ONE CAPSULE BY MOUTH Refills: 0 Last:09-04-23 EVERY DAY FOR 21 DAYS AND THEN 7 DAYS Expr:09-29-23 OFF. SWALLOW WHOLE WITH WATER *FOR DOCUMENTATION ONLY - FILLED BY [facility]* 5) LENALIDOMIDE 10MG CAP Qty: 21 for 28 DISCONTINUED Issu:08-01-23 days Sig: TAKE ONE CAPSULE BY MOUTH Refills: 0 Last:08-06-23 EVERY DAY FOR 21 DAYS THEN 7 DAYS OFF. Expr:08-31-23 TAKE WITH A GLASS OF WATER*DOCUMENTATION ONLY-FILLED BY [facility]* 6) MAGNESIUM OXIDE 420MG TAB Qty: 100 for DISCONTINUED Issu:09-22-22 50 days Sig: TAKE ONE TABLET BY MOUTH Refills: 0 Last:07-05-23 TWICE A DAY FOR LOW MAGNESIUM Expr:09-23-23 Start Date Active Non-VA Medications Refills Expiration 1) Non-VA ALBUTEROL/IPRATROPIUM SOLN,INHL ACTIVE Si ML ALBUTEROL 2.5% SOLUTION INHALATION TWICE A DAY NEEDED 2) Non-VA ASCORBIC ACID TAB Sig: EVERY ACTIVE DAY 3) Non-VA ASPIRIN 81MG EC TAB Si MG ACTIVE MOUTH EVERY DAY 4) Non-VA CHOLECALCIF 25MCG (D3-1,000UNIT) ACTIVE TAB SiUNIT MOUTH EVERY DAY 5) Non-VA FISH OIL 1000MG (500MG DHA/EPA) ACTIVE CAP SiGM MOUTH TWICE A DAY 6) Non-VA LORATADINE 10MG TAB SiMG ACTIVE MOUTH NEEDED 7) Non-VA MULTIVITAMIN CAP/TAB Si ACTIVE TABLET MOUTH EVERY DAY Start Date Inactive Non-VA Medications Refills Expiration 1) Non-VA DOXYCYCLINE HYCLATE 50MG CAP DISCONTINUED SiMG MOUTH TWICE A DAY 27 Total Medications /es/ ALESHIA SHELBY MD PHYSICIAN Signed: 10/17/2023 14:46 ALESHIA SHELBY ([facility]) Oct 17, 2023 01:18 PM PRIMARY CARE NOTE: LOCAL TITLE: [facility]: PRIMARY CARE NOTE DATE OF NOTE: OCT 17, 2023@13:18 ENTRY DATE: OCT 17, 2023@13:18:54 AUTHOR: RODGER BARRERA EXP COSIGNER: URGENCY: STATUS: COMPLETED [facility] ADDENDA TYPE OF VISIT: Appointment Check In Type of appointment: In-person appointment REASON FOR VISIT: Diabetic recheck/COPD ALLERGIES: ATORVASTATIN (Aug 17, 2015) SIMVASTATIN (Aug 17, 2015) VITAL SIGNS: Blood Pressure: 129/65 (10/17/2023 13:14) Pulse: 102 (10/17/2023 13:14) Respiration: 20 (10/17/2023 13:14) Temperature: 98 F [36.7 C] (10/17/2023 13:14) Weight: 214.4 lb [97.25 kg] (10/17/2023 13:14) Height: 66 in [167.6 cm] (05/07/2023 14:10) BMI: 34.7 O2 Sat: 94% (10/17/2023 13:14) Pain: 0 (10/17/2023 13:14) PAIN SCREEN: Patient is not having significant pain that they wish to discuss with their provider today. MEDICATION Active Outpatient Medications (including Supplies): ALBUTEROL 90MCG (CFC-F) 200D ORAL INHL INHALE 2 PUFFS BY ACTIVE INHALATION EVERY 4-6 HOURS NEEDED FOR IMMEDIATE RELIEF OF SHORTNESS OF BREATH - SHAKE WELL CYANOCOBALAMIN 1000MCG TAB TAKE ONE TABLET BY MOUTH EVERY ACTIVE DAY DEXAMETHASONE 4MG TAB TAKE FIVE TABLETS BY MOUTH EVERY ACTIVE WEEK WITH FOOD OR MILK. THIS IS A COMPONENT OF A CHEMOTHERAPY REGIMEN. EMPAGLIFLOZIN 25MG TAB TAKE ONE-HALF TABLET BY MOUTH EVERY ACTIVE MORNING FOR DIABETES AND KIDNEY GLIPIZIDE 10MG TAB TAKE ONE TABLET BY MOUTH TWICE A DAY 30 ACTIVE MINUTES BEFORE MEAL FOR DIABETES LENALIDOMIDE 10MG CAP TAKE ONE CAPSULE BY MOUTH EVERY DAY ACTIVE FOR 21 DAYS AND THEN 7 DAYS OFF. SWALLOW WHOLE WITH EWATER*FOR DOCUMENTATION ONLY-FILLED BY SPECIAL[facility]* MAGNESIUM OXIDE 420MG TAB TAKE ONE TABLET BY MOUTH TWICE A ACTIVE (S) DAY FOR LOW MAGNESIUM METFORMIN HCL 1000MG TAB TAKE ONE TABLET BY MOUTH EVERY ACTIVE DAY TO DECREASE BLOOD SUGAR MOMETASONE 100MCG/ACTUAT 120D ORAL INHL INHALE 2 PUFFS BY ACTIVE MOUTH TWICE A DAY FOR COPD NYSTATIN [id number] UNT/ML SUSP TAKE 1 TEASPOONFUL BY MOUTH ACTIVE FOUR TIMES A DAY FOR INTERMITTENT THRUSH * MAKE SURE YOU SWISH AND THEN SWALLOW* OLODATEROL/TIOTROP 2.5MCG/ACTUAT 60D INH INHALE 2 PUFFS BY ACTIVE INHALATION EVERY DAY TO PREVENT TROUBLE BREATHING PHOS 250/POTASS 280/NA 160MG PKT PWDR TAKE 1 PACKET BY ACTIVE MOUTH TWICE A DAY *MIX PACKET WITH 2.5 ML OF WATER OR JUICE. STIR WELL AND DRINK PROMPTLY PROCHLORPERAZINE MALEATE 10MG TAB TAKE ONE TABLET BY MOUTH HOLD EVERY 6 HOURS NEEDED FOR NAUSEA AND VOMITING. DO NOT TAKE MORE THAN 40 MG PER DAY. Non-VA ALBUTEROL/IPRATROPIUM SOLN,INHL 3 ML ALBUTEROL 2.5% ACTIVE SOLUTION INHALATION TWICE A DAY NEEDED Non-VA ASCORBIC ACID TAB EVERY DAY ACTIVE Non-VA ASPIRIN 81MG EC TAB 81 MG MOUTH EVERY DAY ACTIVE Non-VA CHOLECALCIF 25MCG (D3-1,000UNIT) TAB 1000UNIT MOUTH ACTIVE EVERY DAY Non-VA DOXYCYCLINE HYCLATE 50MG CAP 100MG MOUTH TWICE A ACTIVE DAY Non-VA FISH OIL 1000MG (500MG DHA/EPA) CAP 1GM MOUTH TWICE ACTIVE A DAY Non-VA LORATADINE 10MG TAB 10MG MOUTH NEEDED ACTIVE Non-VA MULTIVITAMIN CAP/TAB 1 TABLET MOUTH EVERY DAY ACTIVE Homelessness/Food Insecurity Screen: In the past 2 months, have you been living in stable housing that you own, rent, or stay in as part of a household? Yes - Living in stable housing. Are you worried or concerned that in the next 2 months you may NOT have stable housing that you own, rent, or stay in as part of a household? No - Not worried about housing near future The reports the following: Within the past 12 months, you worried whether your food would run out before you got money to buy more. Never true Within the past 12 months, the food you bought just didn't last and you didn't have money to get more. Never true Food Assistance Programs [facility] Food Assistance Programs [facility] /mindy/ RODGER BARRERA LPN Signed: 10/17/2023 13:20 10/18/2023 ADDENDUM STATUS: COMPLETED Diabetic Eye Screening: Prior exam/eye care done elsewhere within past year (or within past two years if negative history of retinopathy): Diabetic retinal exam result: Negative for Retinopathy Date: August 10, 2022 Location: [facility] Comment: No diabetic retinopathy, recheck in 1 year. /mindy/ RODGER BARRERA LPN Signed: 10/18/2023 14:19 RODGER BARRERA BORGER ([facility])
--- OUTSIDE RECORDS SUMMARY | 2024-06-08 10:49 | XMS_ITS | Encounter Summary ---
Author Name [facility] [place] [facility] [place] [facility] [place] [facility] [place] Address [address] [place] [address] Care Team Providers Care Group Underwriter Name Role Phone ALESHIA SHELBY Primary Care [...] Name Patient's Relationship to Policy Colbert [facility]NA [facility] ([facility]) MEDICARE ADVANTAGE [facility] ([facility]) Jul 09, 2022 [id number] [phone] DARIUS TIJERINA PATIENT [employer] [facility] ([facility]) MEDICARE ADVANTAGE [facility] ([facility]) Jul 09, 2022 [id number] DARIUS TIJERINA PATIENT MEDICA [facility] ([facility]) MEDICARE ADVANTAGE [facility] ([facility]) Jul 09, 2018 [id number] [phone] DARIUS TIJERINA PATIENT MEDICARE (WN) MEDICARE (M) PART A Aug 09, 2011 PART A [id number] [phone] DARIUS TIJERINA PATIENT MEDICARE ([facility]) MEDICARE (M) PART B Aug 09, 2011 PART B [id number] [phone] DARIUS TIJERINA PATIENT Selected Encounter This section includes the information on record at [place] for the Encounter. Date/Time Encounter Type Encounter Description Reason Provider Source Aug 29, 2023 01:00 PM OFFICE O/P EST HI 40 MIN ONCOLOGY/TUMOR ICD-10-CM C90.00 Multiple myeloma not having achieved remission JANE SALGADO [facility] Encounter Template Text not used by [place] Assessments - Encounter Diagnoses This section includes the primary and secondary diagnoses documented for the Encounter. Date/Time Primary/Secondary Diagnosis Diagnosis Name Provider Source Aug 29, 2023 04:36 PM PRIMARY Multiple myeloma not having achieved remission [facility] Aug 29, 2023 04:36 PM SECONDARY [facility], [facility] Aug 29, 2023 04:36 PM SECONDARY Hypomagnesemia [facility] Plan of Treatment: Future Appointments (+ 6 months) and Future Tests (+/- 45 days) The Plan of Treatment section includes future care activities for the patient from [facility] [place] [facility] This section includes future appointments and future orders which are active, pending or scheduled. Future Appointments This section includes appointments that were scheduled to occur 6 months from the date of the Encounter, up to a maximum of 20 appointments. The data comes from all [place] treatment facilities. Appointment Date/Time Appointment Type Appointme nt Facility Name Sep 26, 2023 12:30 PM AM[place]ORY - NONE [place] [facility] Sep 26, 2023 01:30 PM [place]IC[place] [facility] Oct 17, 2023 01:30 PM [facility]ORY - MEDICINE [facility] Oct 24, 2023 12:00 PM [place] [place]ONE [place] [facility] Oct 24, 2023 01:00 PM [place]IC[place] [facility] Nov 02, 2023 12:30 PM [place]ORY [place]ONE [place] [facility] Nov 02, 2023 01:00 PM [place]IC[place] [facility] Nov 02, 2023 02:00 PM [place]ORY - [place]IC[place] [facility] November 21, 2023 11:30 AM [place]ORY [place]ONE [place] [facility] Dec 19, 2023 01:00 PM [place]ORY - [place]ONE [place] [facility] Dec 19, 2023 02:00 PM [place]ORY [place]IC[place] [facility] Jan 16, 2024 11:00 AM AMBULATORY - NONE [facility] Jan 31, 2024 05:50 PM AMBULATORY - REHAB MEDICIN [facility] Feb 14, 2024 11:00 AM AMBULATORY - NONE [facility] Lab Results: +/- 30 days of the encounter This section includes the Chemistry and Hematology Lab Results on record with [place] for the patient. Radiology Reports and Pathology Reports are provided separately, in subsequent sections. Lab Results This section contains the Chemistry/Hematology Results that were resulted 30 days before or 30 daysafter the date of the Encounter. Date/Time Source Result Type Result - Unit Interpretation Reference Range Comment Sep 26, 2023 12:24 PM [facility] KAPPA/LAMBDA LC FREE,RATIO Specimen Type: [...] therapy of these disorders. Test Performed by [facility], [facility], [address] [place] [address] Robert Swift M.D., Ph.D., Director of Laboratories , [facility] [id number] Ordering Provider: JANE SALGADO Report Released Date/Time: Aug 29, 2023 01:22 PM Reporting Lab: [facility] [address] Performing Lab: [address] .KAPPA LT CHAIN,FREE 26.4 mg/L H 3.3-19.4 .LAMBDA LC,FREE 57.2 mg/L H 5.7-26.3 .KAPPA/LAMBDA, FREE 0.46 0.26-1.65 Sep 26, 2023 12:24 PM [facility] ELP/IMMFIX,SERUM PANEL Specimen Type: SERUM Comment: IM FIX ADDED - Band(s) present. See Identification in report. Ordering Provider: JANE SALGADO Report Released Date/Time: Aug 29, 2023 01:22 PM Reporting Lab: [facility] [address] Performing Lab: [facility] [address] PROTEIN,TOTAL 6.2 g/dL 6.0-8.3 .IDENTIFICATIO N 1 IgA lambda .IDENTIFICATIO N 2 IgM kappa .ALBUMIN FRACTION 4.04 g/dL 3.66-4.78 .ALPHA 1 FRACTION 0.29 g/dL 0.14-0.38 .ALPHA 2 FRACTION 0.88 g/dL 0.50-0.90 .BETA 1 FRACTION 0.41 g/dL 0.33-0.55 .BETA 2 FRACTION 0.25 g/dL 0.20-0.52 .GAMMA FRACTION 0.33 g/dL L 0.58-1.72 .TOTAL PROTEIN 6.2 g/dL 6.0-8.3 .INTERPRETATIO N BICLONAL Sep 26, 2023 12:24 PM [facility] TSH W/REFLEX TO FREE T4 Specimen Type: PLASMA Comment: Automated Differential Performed Ordering Provider: JANE SALGADO Report Released Date/Time: Aug 29, 2023 01:22 PM Reporting Lab: [facility] [address] Performing Lab: [facility] [address] TSH 1.67 u[IU]/mL 0.35-4.94 Sep 26, 2023 12:24 PM [facility] URIC ACID Specimen Type: PLASMA No comment entered. Ordering Provider: JANE SALGADO Report Released Date/Time: Aug 29, 2023 01:22 PM Reporting Lab: [facility] [phone] Performing Lab: [facility] [address] URIC ACID 7.7 mg/dL H 3.5-7.2 Sep 26, 2023 12:24 PM [facility] LD,TOTAL Specimen Type: PLASMA No comment entered. Ordering Provider: JANE SALGADO Report Released Date/Time: Aug 29, 2023 01:22 PM Reporting Lab: [facility] [address] Performing Lab: [facility] [address] LD,TOTAL 127 U/L 125-220 Sep 26, 2023 12:24 PM [facility] COMPREHENSIVE METABOLIC PANEL+MG Specimen Type: PLASMA Comment: Automated Differential Performed Ordering Provider: JANE SALGADO Report Released Date/Time: Aug 29, 2023 01:22 PM Reporting Lab: [facility] [address] Performing Lab: [facility] [address] CREATININE 1.8 mg/dL H 0.7-1.2 UREA NITROGEN [...] L >60 Sep 26, 2023 12:24 PM [facility] CBC & DIFF Specimen Type: BLOOD Comment: Automated Differential Performed Ordering Provider: JANE SALGADO Report Released Date/Time: Aug 29, 2023 01:22 PM Reporting Lab: [facility] [address] Performing Lab: [facility] [address] WBC 3.18 10*3/uL L 4.0-11.0 RBC 4.04 [...] 10*3/uL 0-0.1 Aug 29, 2023 01:06 PM [facility]) URINALYSIS Specimen Type: URINE No comment entered. Ordering Provider: JESSIE SANABRIA Report Released Date/Time: Aug 01, 2023 11:11 PM Reporting Lab: [facility] [address] Performing Lab: [facility] [address] URINE COLOR LIGHT-YELLOW SPECIFIC GRAVITY 1.027 1.003-1.03 [...] NEGATIVE NEGATIVE Aug 29, 2023 11:46 AM [facility] KAPPA/LAMBDA LC FREE,RATIO Specimen Type: [...] therapy of these disorders. Test Performed by [facility], [facility], [address] [place] [address] Robert Swift M.D., Ph.D., Director of Laboratories , [place] [id number] Ordering Provider: JANE SALGADO Report Released Date/Time: Aug 01, 2023 11:24 AM Reporting Lab: [facility] [address] Performing Lab: [facility] [address] [facility] .KAPPA LT CHAIN,FREE 15.4 mg/L 3.3-19.4 .LAMBDA LC,FREE 39.8 mg/L H 5.7-26.3 .KAPPA/LAMBDA, FREE 0.39 0.26-1.65 Aug 29, 2023 11:46 AM [facility] ELP/IMMFIX,SERUM PANEL Specimen Type: SERUM Comment: Peak(s) too small to quantitate. IM FIX ADDED - Band(s) present. See Identification in report. Decreased gamma fraction may be seen in certain lymphoproliferat fay disorders. Recommend submitting a 24 hr urine for ELP and immunofixation tests. Ordering Provider: JANE SALGADO Report Released Date/Time: Aug 01, 2023 11:24 AM Reporting Lab: [facility] [address] Performing Lab: [facility] [address] PROTEIN,TOTAL 5.7 g/dL L 6.0-8.3 .IDENTIFICATIO N 1 IgA lambda .ALBUMIN FRACTION 3.60 g/dL L 3.66-4.78 .ALPHA 1 FRACTION 0.35 g/dL 0.14-0.38 .ALPHA 2 FRACTION 0.88 g/dL 0.50-0.90 .BETA 1 FRACTION 0.33 g/dL 0.33-0.55 .BETA 2 FRACTION 0.22 g/dL 0.20-0.52 .GAMMA FRACTION 0.31 g/dL L 0.58-1.72 .TOTAL PROTEIN 5.7 g/dL L 6.0-8.3 .INTERPRETATIO N MONOCLONAL Aug 29, 2023 11:46 AM [facility] TSH W/REFLEX TO FREE T4 Specimen Type: PLASMA No comment entered. Ordering Provider: JANE SALGADO Report Released Date/Time: Aug 01, 2023 11:24 AM Reporting Lab: [facility] [address] Performing Lab: [facility] [address] TSH 1.08 u[IU]/mL 0.35-4.94 Aug 29, 2023 11:46 AM [facility] PHOSPHORUS Specimen Type: PLASMA No comment entered. Ordering Provider: JANE SALGADO Report Released Date/Time: Aug 01, 2023 11:24 AM Reporting Lab: [facility] [address] Performing Lab: [facility] [address] PHOSPHORUS 3.8 mg/dL 2.3-4.7 Aug 29, 2023 11:46 AM [facility] LD,TOTAL Specimen Type: PLASMA No comment entered. Ordering Provider: JANE SALGADO Report Released Date/Time: Aug 01, 2023 11:24 AM Reporting Lab: [facility] [address] Performing Lab: [facility] [address] LD,TOTAL 123 U/L L 125-220 Aug 29, 2023 11:46 AM [facility] URIC ACID Specimen Type: PLASMA No comment entered. Ordering Provider: JANE SALGADO Report Released Date/Time: Aug 01, 2023 11:24 AM Reporting Lab: [facility] [address] Performing Lab: [facility] [address] URIC ACID 6.8 mg/dL 3.5-7.2 Aug 29, 2023 11:46 AM [facility] COMPREHENSIVE METABOLIC PANEL+MG Specimen Type: PLASMA No comment entered. Ordering Provider: JANE SALGADO Report Released Date/Time: Aug 01, 2023 11:24 AM Reporting Lab: [facility] [address] Performing Lab: [facility] [address] CREATININE 1.6 mg/dL H 0.7-1.2 UREA NITROGEN [...] L >60 Aug 29, 2023 11:46 AM [facility] CBC & DIFF Specimen Type: BLOOD No comment entered. Ordering Provider: JANE SALGADO Report Released Date/Time: Aug 01, 2023 11:24 AM Reporting Lab: [facility] [address] Performing Lab: [facility] [address] WBC 4.10 10*3/uL 4.0-11.0 RBC 3.91 10*6/uL [...] 2.5 0-10 Aug 01, 2023 10:20 AM [facility] ELP/IMMFIX,URINE RANDOM PANEL Specimen Type: URINE Comment: Urine immunotyping performed. No monoclonal proteins identified. Ordering Provider: JYOTI GREER Report Released Date/Time: Jul 05, 2023 11:16 AM Reporting Lab: [facility] [address] Performing Lab: [facility] [address] PROTEIN,T. RANDOM UR 12.5 mg/dL <14.0 .INTERPRETATIO N,UR NO MONOCLONALS DETECTED Aug 01, 2023 10:20 AM [facility] ALBUMIN/CREATININE RATIO URINE Specimen Type: URINE No comment entered. Ordering Provider: JYOTI GREER Report Released Date/Time: Jul 05, 2023 11:16 AM Reporting Lab: [facility] [address] Performing Lab: [facility] [address] CREATININE,UR RANDOM 69.7 mg/dL 58.0-161.0 ALB/CREAT RATIO,UR 23.5 mg/g{creat} <29.9 ALBUMIN,UR 16.4 mg/L <29.9 Aug 01, 2023 10:20 AM [facility] PROTEIN/CREATININE RATIO URINE Specimen Type: URINE No comment entered. Ordering Provider: JYOTI GREER Report Released Date/Time: Jul 05, 2023 11:16 AM Reporting Lab: [facility] [address] Performing Lab: [facility] [address] PROTEIN/CREATI NINE RATIO 0.18 <0.19 CREATININE,UR RANDOM 69.1 mg/dL 58.0-161.0 PROTEIN,T. RANDOM UR 12.5 mg/dL <14.0 Aug 01, 2023 10:20 AM [facility] URINALYSIS Specimen Type: URINE No comment entered. Ordering Provider: JYOTI GREER Report Released Date/Time: Jul 05, 2023 11:16 AM Reporting Lab: [facility] [address] Performing Lab: [facility] [address] URINE COLOR LIGHT-YELLOW SPECIFIC GRAVITY 1.027 1.003-1.03 [...] NEGATIVE NEGATIVE Aug 01, 2023 09:56 AM [facility] KAPPA/LAMBDA LC FREE,RATIO Specimen Type: [...] therapy of these disorders. Test Performed by [facility], [facility], [address] [place] [address] Robert Swift M.D., Ph.D., Director of Laboratories , CLIA [id number] Ordering Provider: JANE SALGADO Report Released Date/Time: Jul 04, 2023 02:25 PM Reporting Lab: [facility] [address] Performing Lab: [address] .KAPPA LT CHAIN,FREE 19.2 mg/L 3.3-19.4 .LAMBDA LC,FREE 42.6 mg/L H 5.7-26.3 .KAPPA/LAMBDA, FREE 0.45 0.26-1.65 Aug 01, 2023 09:56 AM [facility] ELP/IMMFIX,SERUM PANEL Specimen Type: SERUM Comment: IM FIX ADDED - Band(s) present. See Identification in report. Peak(s) too small to quantitate. Ordering Provider: JANE SALGADO Report Released Date/Time: Jul 04, 2023 02:25 PM Reporting Lab: [facility] [address] Performing Lab: [facility] [address] PROTEIN,TOTAL 6.0 g/dL 6.0-8.3 .IDENTIFICATIO N 1 IgA lambda .ALBUMIN FRACTION 3.98 g/dL 3.66-4.78 .ALPHA 1 FRACTION 0.28 g/dL 0.14-0.38 .ALPHA 2 FRACTION 0.74 g/dL 0.50-0.90 .BETA 1 FRACTION 0.43 g/dL 0.33-0.55 .BETA 2 FRACTION 0.25 g/dL 0.20-0.52 .GAMMA FRACTION 0.33 g/dL L 0.58-1.72 .TOTAL PROTEIN 6.0 g/dL 6.0-8.3 .INTERPRETATIO N MONOCLONAL Aug 01, 2023 09:56 AM [facility] COMPREHENSIVE METABOLIC PANEL+MG Specimen Type: PLASMA Comment: Automated Differential Performed Ordering Provider: JANE SALGDAO Report Released Date/Time: Jul 04, 2023 02:25 PM Reporting Lab: [facility] [address] Performing Lab: [facility] Aug 01, 2023 09:56 AM [facility] TSH W/REFLEX TO FREE T4 Specimen Type: PLASMA No comment entered. Ordering Provider: JANE SALGADO Report Released Date/Time: Jul 04, 2023 02:25 PM Reporting Lab: [facility] [address] Performing Lab: [facility] [address] TSH 1.18 u[IU]/mL 0.35-4.94 Aug 01, 2023 09:56 AM [facility] URIC ACID Specimen Type: PLASMA No comment entered. Ordering Provider: JANE SALGADO Report Released Date/Time: Jul 04, 2023 02:25 PM Reporting Lab: [facility] [address] Performing Lab: [facility] [address] URIC ACID 6.9 mg/dL 3.5-7.2 Aug 01, 2023 09:56 AM [facility] LD,TOTAL Specimen Type: PLASMA No comment entered. Ordering Provider: JANE SALGADO Report Released Date/Time: Jul 04, 2023 02:25 PM Reporting Lab: [facility] [address] Performing Lab: [facility] [address] LD,TOTAL 109 U/L L 125-220 Aug 01, 2023 09:56 AM [facility] RENAL FUNCTION PANEL Specimen Type: PLASMA Comment: Automated Differential Performed Ordering Provider: JYOTI GREER Report Released Date/Time: Jul 05, 2023 11:16 AM Reporting Lab: [facility] [address] Performing Lab: [facility] Aug 01, 2023 09:56 AM [facility] CBC & DIFF Specimen Type: BLOOD Comment: Automated Differential Performed Ordering Provider: JANE SALGADO Report Released Date/Time: Jul 04, 2023 02:25 PM Reporting Lab: [facility] [address] Performing Lab: [facility] [address] WBC 4.33 10*3/uL 4.0-11.0 RBC 4.10 10*6/uL [...] 1.2 ABS IMMATURE GRAN 0.05 10*3/uL 0-0.1 Vital Signs: All taken on the encounter date This section contains inpatient and outpatient Vital Signs collected on the date of the Encounter. Date/Time Temperature Pulse Blood Pressure Respiratory Rate SP02 Pain Height Weight Body Mass Index Source Aug 29, 2023 12:42 PM 97.7 102 138/69 20 96 0 213.1 34 [facility] Encounter Notes: All associated encounter notes This section contains the clinical notes associated to the Encounter. Date/Time Encounter Note(s) Provider Source Aug 29, 2023 04:08 PM HEMATOLOGY AND ONC OLOGY ATTENDING NOTE: LOCAL TITLE: HEME/ONC CLINIC NOTE STANDARD TITLE: HEMATOLOGY AND ONCOLOGY ATTENDING NOTE DATE OF NOTE: AUG 29, 2023@16:08 ENTRY DATE: AUG 29, 2023@16:08:16 AUTHOR: JANE SALGADO COSIGNER: URGENCY: STATUS: COMPLETED [...] Reports today for follow-up TODAY Shares he was seen locally 2 weeks a go and was diagnose with influenza. Offered admission but stayed home, utilized tamiflu and today is 955 of his baseline. MCHUGH when he had influenzas, nothing now. Denies vision changes, falls, gait or cognition alterations. No OC mass or mucositis to report. No nystatin swish and spit this month but has if he needs it. He does check for cervical, axillary and inguinal LAD and has none to report. SOB back to baseline after influenza. Cough persist but no longer productive Denies vomiting/nausea. Denies changes to his baseline bowel or bladder pattern. No reports of bleeding. Bruises easily but this is not new. Denies bone or joint pain. Denies the presence of LE edema or calf pain. 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. The other IGH translocation probes showed [...] NAD VS Temperature: 97.7 F [36.5 C] (08/29/2023 12:42) Blood Pressure: 138/69 (08/29/2023 12:42) Pulse: 102 (08/29/2023 12:42) Respiration: 20 (08/29/2023 12:42) Pain: 0 (08/29/2023 12:42) Pulse Oximetry: 96% (08/29/2023 12:42)Weight-Last 3: Measurement DT WEIGHT 08/29/2023 12:42 213.1(96.66)[34*] 08/01/2023 10:18 213.3(96.75)[34*] 07/04/2023 13:35 208.4(94.53)[34*] ECO PERRLA, Sclera anicteric OC/OP: No evidence of mass, mucositis or thrush Neck: No appreciable LAD or mass Chest: HRR, LS CTA Abd: soft n/t BS +x4 No appreciable edema in the extremities No visible hematoma or mass LABS Today's Labs: GLUCOSE: 134 H UREA NITROGEN: 35 H CREATININE: 1.6 H CREATININE EGFR (CKD-EPI): 44 L URIC ACID: 6.8 TSH: 1.08 SODIUM: 139 POTASSIUM: 4.0 CHLORIDE: 112 H CO2: 18 L CALCIUM: 9.3 PO4: 3.8 MAGNESIUM: 1.9 ANION GAP: 9 PROTEIN,TOTAL: 6.1 ALBUMIN: 3.9 BILIRUBIN,TOTAL: 0.6 ALKALINE PHOSPHATASE(37C): 122 SGOT(37C): 13 SGPT(37C): 34 LD,TOTAL(37C P-L): 123 L WBC: 4.10 SEGS: 62.7 LYMPHS: 22.0 MONOCYTES: 12.7 H EOSINO: 0.7 BASO: 0.2 NEUTROPHIL, ABSOLUTE: 2.57 EOSINO, ABSOLUTE: 0.03 BASO, ABSOLUTE: 0.01 MONOCYTE, ALTERNATE ABS: 0.52 LYMPHS, ALTERNATE ABS: 0.90 L I.7 IG,ABSOLUTE: 0.07 RBC: 3.91 L HGB: 12.6 L HCT: 37.0 L MCV: 94.6 MCH: 32.2 MCHC: 34.1 RDW: 15.2 H PLT: 103 L MPV: 10.8 H IPF: 2.5 Discussed today Oncology imaging ======= 05/07/23 PET [...] REMS survey -Provider complete REMS survey: auth [id number] - will continue 81mg ASA Plan RTC in 4 weeks in [facility] as he was not an overall fan of [facility], Phone clinic phased out post pandemic and [facility] and [facility] equidistant he prefers [facility] as then he can go [place]. 2. Renal insufficiency: creatinine variable-was up to 2.0, 1.6 today. Placed Renal consult as does have DM type II and myeloma well managed and Renal most suspecting of CKD in the setting of DM, per their notations low suspicion for myeloma affect/involvement. 3. 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 Prior reports of [...] JANE SALGADO APRN CLINICAL NURSE SPECIALIST Signed: 08/29/2023 16:36 08/31/2023 ADDENDUM STATUS: COMPLETED SPEP remains with bands too small to quantify Continue current plan of care /es/ JANE SALGADO APRN CLINICAL NURSE SPECIALIST Signed: 08/31/2023 08:04 09/03/2023 ADDENDUM STATUS: COMPLETED FLC ratio WNL No changes to current plan of care /es/ JANE SALGADO APRN CLINICAL NURSE SPECIALIST Signed: 09/03/2023 08:33 JANE SALGADO [facility] Aug 29, 2023 12:43 PM INTERNAL MEDICINE OUTPATIENT NOTE: LOCAL TITLE: MEDICINE CLINIC NURSING NOTE STANDARD TITLE: INTERNAL MEDICINE OUTPATIENT NOTE DATE OF NOTE: AUG 29, 2023@12:43 ENTRY DATE: AUG 29, 2023@12:43:52 AUTHOR: JEREMY CASTILLO EXP COSIGNER: URGENCY: STATUS: COMPLETED TYPE OF VISIT: Appointment Check In Type of appointment: In-person appointment REASON FOR VISIT: rtc ALLERGIES: ATORVASTATIN (Aug 17, 2015) SIMVASTATIN (Aug 17, 2015) VITAL SIGNS: Blood Pressure: 138/69 (08/29/2023 12:42) Pulse: 102 (08/29/2023 12:42) Respiration: 20 (08/29/2023 12:42) Temperature: 97.7 F [36.5 C] (08/29/2023 12:42) Weight: 213.1 lb [96.66 kg] (08/29/2023 12:42) Height: 66 in [167.6 cm] (05/07/2023 14:10) BMI: 34.5 O2 Sat: 96% (08/29/2023 12:42) Pain: 0 (08/29/2023 12:42) PAIN SCREEN: Patient is not having significant pain that they wish to discuss with their provider today. MEDICATION Over the Counter/Herbal Medications: The patient states that they take some outside medications and/or herbals. /mindy/ JEREMY CASTILLO LPN, LPN Signed: 08/29/2023 12:45 JEREMY CASTILLO [facility]
--- OUTSIDE RECORDS SUMMARY | 2024-06-08 10:50 | XMS_ITS | Encounter Summary ---
Author Name [facility] Address [address] [place] [id number] Care Team Providers Care Supervisor Cooler Service Name Role Phone ALESHIA SHELBY Primary Care [...] Colbert HUMANA [facility] ([facility]) MEDICARE ADVANTAGE [facility] ([facility]) Jul 09, 2022 [id number] DARIUS TIJERINA PATIENT HUMANA [facility] ([facility]) MEDICARE ADVANTAGE [facility] ([facility]) Jul 09, 2022 [id number] DARIUS TIJERINA PATIENT MEDICA [facility] ([facility]) MEDICARE ADVANTAGE [facility] ([facility]) Jul 09, 2018 [id number] [phone] DARIUS TIJERINA PATIENT MEDICARE (WN) MEDICARE (M) PART A Aug 09, 2011 PART A [id number] [phone] DARIUS TIJERINA PATIENT MEDICARE ([facility]) MEDICARE (M) PART B Aug 09, 2011 PART B [id number] [phone] DARIUS TIJERINA PATIENT Selected Encounter This section includes the information on record at [place] for the Encounter. Date/Time Encounter Type Encounter Description Reason Provider Source Mar 12, 2024 02:30 PM OFFICE O/P EST MOD 30 MIN ONCOLOGY/TUMOR ICD-10-CM C90.00 Multiple myeloma not having achieved remission FAIZA CHEUNG [facility] Encounter Template Text not used by [place] Assessments - Encounter Diagnoses This section includes the primary and secondary diagnoses documented for the Encounter. Date/Time Primary/Secondary Diagnosis Diagnosis Name Provider Source Mar 14, 2024 08:31 AM PRIMARY Multiple myeloma not having achieved remission FAIZA CHEUNG [facility] Plan of Treatment: Future Appointments (+ 6 months) and Future Tests (+/- 45 days) The Plan of Treatment section includes future care activities for the patient from all [place] treatmentfacilities. This section includes future appointments and future orders which are active, pending or scheduled. Future Appointments This section includes appointments that were scheduled to occur 6 months from the date of the Encounter, up to a maximum of 20 appointments. The data comes from all [place] treatment facilities. Appointment Date/Time Appointment Type Appointme nt Facility Name Mar 28, 2024 09:30 AM AMBULATORY - REHAB MEDICIN E [facility] Apr 02, 2024 02:00 PM [facility] Apr 11, 2024 01:00 PM AMBULATORY - NONE [facility] Apr 22, 2024 02:30 PM AMBULATORY - MEDICINE [facility] May 12, 2024 12:45 PM AMBULATORY - NONE [facility] Jun 12, 2024 12:30 PM AMBULATORY - NONE [facility] Jun 12, 2024 01:30 PM AMBULATORY - MEDICINE [facility] Lab Results: +/- 30 days of the encounter This section includes the Chemistry and Hematology Lab Results on record with [place] for the patient. Radiology Reports and Pathology Reports are provided separately, in subsequent sections. Lab Results This section contains the Chemistry/Hematology Results that were resulted 30 days before or 30 daysafter the date of the Encounter. Date/Time Source Result Type Result - Unit Interpretation Reference Range Comment Mar 12, 2024 01:12 PM [facility] KAPPA/LAMBDA LC FREE,RATIO Specimen Type: SERUM [...] therapy of these disorders. Test Performed by [facility], [employer] [facility], [address] [place] [address] Robert Swift M.D., Ph.D., Director of Laboratories , [place] [id number] Ordering Provider: JANE SALGADO Report Released Date/Time: Dec 19, 2023 02:29 PM Reporting Lab: [facility] [address] Performing Lab: [address] .KAPPA LT CHAIN,FREE 15.5 mg/L 3.3-19.4 .LAMBDA LC,FREE 31.8 mg/L H 5.7-26.3 .KAPPA/LAMBDA, FREE 0.49 0.26-1.65 Mar 12, 2024 01:12 PM [facility] ELP/IMMFIX,SERUM PANEL Specimen Type: SERUM Comment: Peak(s) too small to quantitate. Ordering Provider: JANE SALGADO Report Released Date/Time: Dec 19, 2023 02:29 PM Reporting Lab: [facility] [address] Performing Lab: [facility] [address] PROTEIN,TOTAL 6.3 g/dL L 6.4-8.3 .IDENTIFICATIO N 1 IgA lambda .ALBUMIN FRACTION 4.18 g/dL 3.66-4.78 .ALPHA 1 FRACTION 0.28 g/dL 0.14-0.38 .ALPHA 2 FRACTION 0.81 g/dL 0.50-0.90 .BETA 1 FRACTION 0.40 g/dL 0.33-0.55 .BETA 2 FRACTION 0.34 g/dL 0.20-0.52 .GAMMA FRACTION 0.30 g/dL L 0.58-1.72 .TOTAL PROTEIN 6.3 g/dL 6.0-8.3 .INTERPRETATIO N MONOCLONAL Mar 12, 2024 01:12 PM [facility] TSH W/REFLEX TO FREE T4 Specimen Type: PLASMA Comment: Automated Differential Performed Ordering Provider: JANE SALGADO Report Released Date/Time: Dec 19, 2023 02:29 PM Reporting Lab: [facility] [address] Performing Lab: [facility] [address] TSH 0.79 u[IU]/mL 0.35-4.94 Mar 12, 2024 01:12 PM [facility] URIC ACID Specimen Type: PLASMA No comment entered. Ordering Provider: JANE SALGADO Report Released Date/Time: Dec 19, 2023 02:29 PM Reporting Lab: [facility] [address] Performing Lab: [facility] [address] URIC ACID 8.2 mg/dL H 3.7-7.7 Mar 12, 2024 01:12 PM [facility] LD,TOTAL Specimen Type: PLASMA No comment entered. Ordering Provider: JANE SALGADO Report Released Date/Time: Dec 19, 2023 02:29 PM Reporting Lab: [facility] [address] Performing Lab: [facility] [address] LD,TOTAL 133 U/L 125-220 Mar 12, 2024 01:12 PM [facility] COMPREHENSIVE METABOLIC PANEL+MG Specimen Type: PLASMA Comment: Automated Differential Performed Ordering Provider: JANE SALGADO Report Released Date/Time: Dec 19, 2023 02:29 PM Reporting Lab: [facility] [address] Performing Lab: [facility] [address] CREATININE 1.7 mg/dL H 0.7-1.2 UREA NITROGEN 34 mg/dL H 8-26 GLUCOSE 220 mg/dL H 70-100 SODIUM 140 mmol/L 136-145 POTASSIUM 4.4 mmol/L 3.5-5.1 CHLORIDE 110 mmol/L H 98-107 CO2 18 mmol/L L 22-29 CALCIUM 9.5 mg/dL 8.4-10.2 PROTEIN,TOTAL 6.6 g/dL 6.4-8.3 ALBUMIN 4.4 g/dL 3.5-5.2 BILIRUBIN, TOTAL 0.7 mg/dL 0.2-1.2 MAGNESIUM 2.0 mg/dL 1.6-2.6 ANION GAP 12 mmol/L 5-15 ALKALINE PHOSPHATASE 123 U/L 40-150 ALT/SGPT 21 U/L <44 AST/SGOT 12 U/L 11-34 .CREAT EGFR(CKD-EPI) 41 L >60 Mar 12, 2024 01:12 PM [facility] CBC & DIFF Specimen Type: BLOOD Comment: Automated Differential Performed Ordering Provider: JANE SALGADO Report Released Date/Time: Dec 19, 2023 02:29 PM Reporting Lab: [facility] [address] Performing Lab: [facility] [address] WBC 3.7 L 4.0-11.0 RBC 4.00 L 4.60-6.20 HGB 13.1 g/dL L 13.5-17.9 HCT 38.8 L 41-54 MCV 97.0 fL 80-100 MCH 32.8 pg 27-33 MCHC 33.8 g/dL 32.0-37.5 PLT 100 L 150-400 MPV 10.2 fL 7.4-10.4 NEUT 60.2 40.0-80.0 LYMPHS 24.5 15.0-45.0 MONO 12.9 H 2.0-12.0 EOSINO 0.8 0.0-6.0 BASO 0.5 0.0-2.0 RDW 14.6 H 11.5-14.5 ABS LYMPH 0.9 L 1.0-4.0 ABS MONO 0.5 0.1-1.0 ABS NEUT 2.2 2.0-7.7 ABS EOS 0.0 0-0.5 ABS BASO 0.0 0-0.2 IG(META,MYELO, PRO) 1.1 ABS IMMATURE GRAN 0.0 0-0.1 Vital Signs: All taken on the encounter date This section contains inpatient and outpatient Vital Signs collected on the date of the Encounter. Date/Time Temperature Pulse Blood Pressure Respiratory Rate SP02 Pain Height Weight Body Mass Index Source Mar 12, 2024 01:58 PM 97.3 99 127/72 22 95 0 212.4 34 [facility] Encounter Notes: All associated encounter notes This section contains the clinical notes associated to the Encounter. Date/Time Encounter Note(s) Provider Source Mar 17, 2024 08:24 AM ADDENDUM: LOCAL TITLE: Addendum STANDARD TITLE: ADDENDUM DATE OF NOTE: MAR 17, 2024@08:24:17 ENTRY DATE: MAR 17, 2024@08:24:18 AUTHOR: ERIC FLORES EXP COSIGNER: URGENCY: STATUS: COMPLETED Collection time: Mar 12, 2024@13:12 .KAPPA LT CHAIN,FREE 15.5 mg/L 3.3 - 19.4 .LAMBDA LC,FREE 31.8 H mg/L 5.7 - 26.3 .KAPPA/LAMBDA,FREE 0.49 0.26 - 1.65 FLC stable. Will flag to team RN Dennys Lopez to kindly notify pt of SPEP and FLC results, thank you. /mindy/ NAHID STERLING PHYSICIAN ELECTRONIC FIELD SERVICE ENGINEER Signed: 03/17/2024 08:25 Receipt Acknowledged By: 03/17/2024 10:54 /mindy/ DENNYS LOPEZ REGISTERED NURSE --- Original Document --- 03/12/24 HEME/ONC CLINIC NOTE: Date of service: 03/12/2024 30minutes Diagnosis: IgA lamda Multiple myeloma Treatment: current treatment maintenance Lenalidomide 10mg po daily for 21 days than 7 off and Dexamethasone 20mg (50% due to blood sugars/tolerance) HPI: Pt is doing well. he continues to tolerate the revlimid well. denies N/V. appetite is good. energy is OK> he is mostly limited by his breathing and SOB and this is long standing for him, has been seen by pulmonary. He still tries to get out and about and get things done. no new bone pains. denies MCHUGH. no bleeding or clotting concerns. He really has no new complaints on todays visit. HEM/ONC HISTORY copied and updated - Consulted for elevated IgA monoclonal protein [...] - Fat pad : negative Cytogenetic studies [id number] from 04/08/2018) on bone marrow aspirate done at [facility] in [place], [place] reportedly show the following FISH results: FISH RESULTS: Summary of FISH results: Gain of 1q Absent FGFR3/IGH rearrangement t(4;14) Absent CCND1/IGH rearrangement t(11;14) Present Deletion 13q, loss of 13 Absent IGH/MAF rearrangement t(14;16) Absent IGH/MAFB rearrangement t(14;20) Absent TP53 Deletion (17p) Absent FISH RESULTS: nuc idris(CDKN2C,CKS1B) x2[100] nuc idris(GNBN8f7,IGHx3~4) [87/100] nuc idris(ALPB6n6,IGHx4)(CCND1 con IGHx2)[61/100]/ (CCNDx2,IGHx3)(CCND1 con IGHx1)[16/100]/ (CCND1,IGH) x3(CCND1 con IGHx2) [12/100] nuc idris(N99G943/D13S25,13qter)x2 [100] nuc idris(IGHx3~4,MAFBx2)[88/100] nuc idris(IGHx3~4,MAFx2)[84/100] nuc idris(TP53,D17Z1)x2[100] [...] Myeloma Working Group and the [facility]. The other IGH translocation probes showed [...] detected but Peak(s) too small to quantitate PAST MEDICAL HISTORY: Active problems - Computerized Problem List is the source for the followin. Myeloma - Plasma Cell Myeloma (Dx 03/2018) 2. Hyperlipidemia (SCT 44867831) 3. Diabetes Mellitus Type 2 (SCT 36573200) 4. COPD - Chronic Obstructive Pulmonary Disease (SCT 68572020) 5. Cataract 6. Seasonal allergy 7. Anemia (SCT 729043633) 8. Low back pain - CT Chest (06/03/2018) showed T12 myeloma lesion and bilateral ribs 9. Chronic kidney disease stage 3 10. Gout ALLERGIES: ATORVASTATIN (Aug 17, 2015) SIMVASTATIN (Aug 17, 2015) Vital signs: weight:212.4 lb [96.34 kg] (03/12/2024 13:58) BP: 127/72 (03/12/2024 13:58) P:99 (03/12/2024 13:58) RR:22 (03/12/2024 13:58) Temp:97.3 F [36.3 C] (03/12/2024 13:58) BSA: 2.12 O2 sat: 95% (03/12/2024 13:58) PHYSICAL EXAM: General: well appearing, in no acute distress LAD: no cervical or clavicular lymphadenopathy Resp: CTA bilat, no rales or wheezes, Cardio: RRR no murmurs, Abd: soft-nontender, non-distended, No HSM Neuro: AO X3 RADIOLOGY: radiology obtained by heme/onc was reviewed with the patient. MEDS: All pertinent heme/onc meds reviewed and updated with the patient LABS: [facility] and the results were reviewed with the patient SLT - Lab Tests Selected Collection DT Specimen Test Name Result Units Ref Range 03/12/2024 13:12 BLOOD !! WBC 3.7 L 10x3/uL 4.0 - 11.0 03/12/2024 13:12 BLOOD !! HGB 13.1 L g/dL 13.5 - 17.9 03/12/2024 13:12 BLOOD !! HCT 38.8 L % 41 - 54 03/12/2024 13:12 BLOOD !! MCV 97.0 fL 80 - 100 03/12/2024 13:12 BLOOD !! PLT 100 L 10x3/uL 150 - 400 03/12/2024 13:12 BLOOD !! ABS LYMPH 0.9 L 10x3/uL 1.0 - 4.0 03/12/2024 13:12 BLOOD !! ABS NEUT 2.2 10x3/uL 2.0 - 7.7 CMP (calcium, creatinine, BUN, glucose, electrolytes, albumin, total bilirubin, alkaline phosphatase, total protein, ALT, AST) Magnesium Serum phosphorus, LDH Any abnormal lab was discussed with patient. ASSESMENT/PLAN: 1. 78y/o M with IgA lambda multiple myeloma, s/p 20 cycles of RVd, last in 07/2019 with excellent response to treatment. Switched to RD maintenance in 08/2019 and has had no evidence of M-spike since 09/2019 along with stable K/L ratio. In Jun 2022 his ELP reported monoclonals but peak too small to quantify-remains as such. September 2023 SPEP was biclonality-reviewed with MD Mcgee no action- continue to monitor Symptomatically doing well. Basic labs look good-stable. paraprotein labs pending. Previous mspike remains undetectable and LC ratio essentially stable/nml at 0.55 - Would continue lenalidomide 10 mg daily x 21 days on, 7 days off, with low dose dexamethasone (20mg po once a week) -he has no question or concerns re completing his REMS survey -Provider complete REMS survey - will continue 81mg ASA 2. Renal insufficiency: creatinine variable-at 1.7 today. Placed Renal consult as does have DM type II and myeloma well managed and Renal most suspecting of CKD in the setting of DM, per their notations low suspicion for myeloma affect/involvement. Monitor Performance Status (ECOG):0 Education Patient on Treatment Plan:Patient indicates readiness to learn, verbalizes understanding, agreement and satisfaction with the treatment plan. Denies further questions. 30minutes spent in direct patient care, reviewing chart, reviewing labs and imaging and documentation. /mindy/ Faiza Cheung PA-C Physician Data Scientist Signed: 03/14/2024 08:31 03/14/2024 ADDENDUM STATUS: COMPLETED ELP/IMMFIX,SERUM PANEL SERUM SP #[id number] Collection time: Mar 12, 2024@13:12 Test Name Result Units Range --------- ------ ----- ----- .INTERPRETATION MONOCLONAL .IDENTIFICATION 1 IgA lambda .ALBUMIN FRACTION 4.18 g/dL 3.66 - 4.78 .ALPHA 1 FRACTION 0.28 g/dL 0.14 - 0.38 .ALPHA 2 FRACTION 0.81 g/dL 0.50 - 0.90 .BETA 1 FRACTION 0.40 g/dL 0.33 - 0.55 .BETA 2 FRACTION 0.34 g/dL 0.20 - 0.52 .GAMMA FRACTION 0.30 L g/dL 0.58 - 1.72 .TOTAL PROTEIN 6.3 g/dL 6.0 - 8.3 Comments: Peak(s) too small to quantitate. m-spike remains too small to quantify. FLC still pending. /mindy/ NAHID STERLING PHYSICIAN ELECTRONIC FIELD SERVICE ENGINEER Signed: 03/14/2024 13:59 03/17/2024 ADDENDUM STATUS: COMPLETED Patient notified. He had no questions or concerns /mindy/ DENNYS LOPEZ REGISTERED NURSE Signed: 03/17/2024 10:54 ERIC FLORES [facility] Mar 12, 2024 03:01 PM HEMATOLOGY AND ONC OLOGY ATTENDING NOTE: LOCAL TITLE: HEME/ONC CLINIC NOTE STANDARD TITLE: HEMATOLOGY AND ONCOLOGY ATTENDING NOTE DATE OF NOTE: MAR 12, 2024@15:01 ENTRY DATE: MAR 12, 2024@15:01:14 AUTHOR: FAIZA CHEUNG EXP COSIGNER: URGENCY: STATUS: COMPLETED HEME/ONC CLINIC NOTE Has ADDENDA Date of service: 03/12/2024 30minutes Diagnosis: IgA lamda Multiple myeloma Treatment: current treatment maintenance Lenalidomide 10mg po daily for 21 days than 7 off and Dexamethasone 20mg (50% due to blood sugars/tolerance) HPI: Pt is doing well. he continues to tolerate the revlimid well. denies N/V. appetite is good. energy is OK> he is mostly limited by his breathing and SOB and this is long standing for him, has been seen by pulmonary. He still tries to get out and about and get things done. no new bone pains. denies MCHUGH. no bleeding or clotting concerns. He really has no new complaints on todays visit. HEM/ONC HISTORY copied and updated - Consulted for elevated IgA monoclonal protein [...] - Fat pad : negative Cytogenetic studies [id number] from 04/08/2018) on bone marrow aspirate done at [facility] in [place], [place] reportedly show the following FISH results: FISH RESULTS: Summary of FISH results: Gain of 1q Absent FGFR3/IGH rearrangement t(4;14) Absent CCND1/IGH rearrangement t(11;14) Present Deletion 13q, loss of 13 Absent IGH/MAF rearrangement t(14;16) Absent IGH/MAFB rearrangement t(14;20) Absent TP53 Deletion (17p) Absent FISH RESULTS: nuc idris(CDKN2C,CKS1B) x2[100] nuc idris(JPQD9f7,IGHx3~4) [87/100] nuc idris(PCFN6p7,IGHx4)(CCND1 con IGHx2)[61/100]/ (CCNDx2,IGHx3)(CCND1 con IGHx1)[16/100]/ (CCND1,IGH) x3(CCND1 con IGHx2) [12/100] nuc idris(O04P738/D13S25,13qter)x2 [100] nuc idris(IGHx3~4,MAFBx2)[88/100] nuc idris(IGHx3~4,MAFx2)[84/100] nuc idris(TP53,D17Z1)x2[100] [...] Myeloma Working Group and the [facility]. The other IGH translocation probes showed [...] detected but Peak(s) too small to quantitate PAST MEDICAL HISTORY: Active problems - Computerized Problem List is the source for the followin. Myeloma - Plasma Cell Myeloma (Dx 03/2018) 2. Hyperlipidemia (SCT 03968785) 3. Diabetes Mellitus Type 2 (SCT 13538238) 4. COPD - Chronic Obstructive Pulmonary Disease (SCT 89021539) 5. Cataract 6. Seasonal allergy 7. Anemia (SCT 607547580) 8. Low back pain - CT Chest (06/03/2018) showed T12 myeloma lesion and bilateral ribs 9. Chronic kidney disease stage 3 10. Gout ALLERGIES: ATORVASTATIN (Aug 17, 2015) SIMVASTATIN (Aug 17, 2015) Vital signs: weight:212.4 lb [96.34 kg] (03/12/2024 13:58) BP: 127/72 (03/12/2024 13:58) P:99 (03/12/2024 13:58) RR:22 (03/12/2024 13:58) Temp:97.3 F [36.3 C] (03/12/2024 13:58) BSA: 2.12 O2 sat: 95% (03/12/2024 13:58) PHYSICAL EXAM: General: well appearing, in no acute distress LAD: no cervical or clavicular lymphadenopathy Resp: CTA bilat, no rales or wheezes, Cardio: RRR no murmurs, Abd: soft-nontender, non-distended, No HSM Neuro: AO X3 RADIOLOGY: radiology obtained by heme/onc was reviewed with the patient. MEDS: All pertinent heme/onc meds reviewed and updated with the patient LABS: The following labs were obtained by [facility] and the results were reviewed with the patient SLT - Lab Tests Selected Collection DT Specimen Test Name Result Units Ref Range 03/12/2024 13:12 BLOOD !! WBC 3.7 L 10x3/uL 4.0 - 11.0 03/12/2024 13:12 BLOOD !! HGB 13.1 L g/dL 13.5 - 17.9 03/12/2024 13:12 BLOOD !! HCT 38.8 L % 41 - 54 03/12/2024 13:12 BLOOD !! MCV 97.0 fL 80 - 100 03/12/2024 13:12 BLOOD !! PLT 100 L 10x3/uL 150 - 400 03/12/2024 13:12 BLOOD !! ABS LYMPH 0.9 L 10x3/uL 1.0 - 4.0 03/12/2024 13:12 BLOOD !! ABS NEUT 2.2 10x3/uL 2.0 - 7.7 CMP (calcium, creatinine, BUN, glucose, electrolytes, albumin, total bilirubin, alkaline phosphatase, total protein, ALT, AST) Magnesium Serum phosphorus, LDH Any abnormal lab was discussed with patient. ASSESMENT/PLAN: 1. 78y/o M with IgA lambda multiple myeloma, s/p 20 cycles of RVd, last in 07/2019 with excellent response to treatment. Switched to RD maintenance in 08/2019 and has had no evidence of M-spike since 09/2019 along with stable K/L ratio. In Jun 2022 his ELP reported monoclonals but peak too small to quantify-remains as such. September 2023 SPEP was biclonality-reviewed with MD Mcgee no action- continue to monitor Symptomatically doing well. Basic labs look good-stable. paraprotein labs pending. Previous mspike remains undetectable and LC ratio essentially stable/nml at 0.55 - Would continue lenalidomide 10 mg daily x 21 days on, 7 days off, with low dose dexamethasone (20mg po once a week) -he has no question or concerns re completing his REMS survey -Provider complete REMS survey - will continue 81mg ASA 2. Renal insufficiency: creatinine variable-at 1.7 today. Placed Renal consult as does have DM type II and myeloma well managed and Renal most suspecting of CKD in the setting of DM, per their notations low suspicion for myeloma affect/involvement. Monitor Performance Status (ECOG):0 Education Patient on Treatment Plan:Patient indicates readiness to learn, verbalizes understanding, agreement and satisfaction with the treatment plan. Denies further questions. 30minutes spent in direct patient care, reviewing chart, reviewing labs and imaging and documentation. /mindy/ Faiza Cheung PA-C Physician Data Scientist Signed: 03/14/2024 08:31 03/14/2024 ADDENDUM STATUS: COMPLETED ELP/IMMFIX,SERUM PANEL SERUM SP LB #[id number] Collection time: Mar 12, 2024@13:12 Test Name Result Units Range --------- ------ ----- ----- .INTERPRETATION MONOCLONAL .IDENTIFICATION 1 IgA lambda .ALBUMIN FRACTION 4.18 g/dL 3.66 - 4.78 .ALPHA 1 FRACTION 0.28 g/dL 0.14 - 0.38 .ALPHA 2 FRACTION 0.81 g/dL 0.50 - 0.90 .BETA 1 FRACTION 0.40 g/dL 0.33 - 0.55 .BETA 2 FRACTION 0.34 g/dL 0.20 - 0.52 .GAMMA FRACTION 0.30 L g/dL 0.58 - 1.72 .TOTAL PROTEIN 6.3 g/dL 6.0 - 8.3 Comments: Peak(s) too small to quantitate. m-spike remains too small to quantify. FLC still pending. /mindy/ NAHID STERLING PHYSICIAN ELECTRONIC FIELD SERVICE ENGINEER Signed: 03/14/2024 13:59 03/17/2024 ADDENDUM STATUS: COMPLETED Collection time: Mar 12, 2024@13:12 .KAPPA LT CHAIN,FREE 15.5 mg/L 3.3 - 19.4 .LAMBDA LC,FREE 31.8 H mg/L 5.7 - 26.3 .KAPPA/LAMBDA,FREE 0.49 0.26 - 1.65 FLC stable. Will flag to team RN Dennys Lopez to kindly notify pt of SPEP and FLC results, thank you. /mindy/ NAHID STERLING PHYSICIAN ELECTRONIC FIELD SERVICE ENGINEER Signed: 03/17/2024 08:25 Receipt Acknowledged By: 03/17/2024 10:54 /mindy/ DENNYS LOPEZ REGISTERED NURSE 03/17/2024 ADDENDUM STATUS: COMPLETED Patient notified. He had no questions or concerns /mindy/ DENNYS LOPEZ REGISTERED NURSE Signed: 03/17/2024 10:54 FAIZA CHEUNG [facility] Mar 12, 2024 01:59 PM INTERNAL MEDICINE OUTPATIENT NOTE: LOCAL TITLE: MEDICINE CLINIC NURSING NOTE STANDARD TITLE: INTERNAL MEDICINE OUTPATIENT NOTE DATE OF NOTE: MAR 12, 2024@13:59 ENTRY DATE: MAR 12, 2024@13:59:19 AUTHOR: CHAY ROSE COSIGNER: URGENCY: STATUS: COMPLETED TYPE OF VISIT: Appointment Check In Type of appointment: In-person appointment REASON FOR VISIT: Scheduled clinic visit ALLERGIES: ATORVASTATIN (Aug 17, 2015) SIMVASTATIN (Aug 17, 2015) VITAL SIGNS: Blood Pressure: 127/72 (03/12/2024 13:58) Pulse: 99 (03/12/2024 13:58) Respiration: 22 (03/12/2024 13:58) Temperature: 97.3 F [36.3 C] (03/12/2024 13:58) Weight: 212.4 lb [96.34 kg] (03/12/2024 13:58) Height: 66 in [167.6 cm] (05/07/2023 14:10) BMI: 34.4 O2 Sat: 95% (03/12/2024 13:58) Pain: 0 (03/12/2024 13:58) PAIN SCREEN: Patient is not having significant pain that they wish to discuss with their provider today. MEDICATION Over the Counter/Herbal Medications: The patient states that they take some outside medications and/or herbals. /mindy/ CHAY ROSE LPN Licensed Practical Nurse Signed: 03/12/2024 13:59 CHAY ROSE [facility]
--- OUTSIDE RECORDS SUMMARY | 2024-06-08 10:50 | XMS_ITS | Encounter Summary ---
Author Name [facility] [place] Address [address] [place] [address] Care Team Providers Care Director Of Clinical Trials Name Role Phone ALESHIA SHELBY Primary Care [...] Name Patient's Relationship to Policy Colbert HUMANA [facility] ([facility]) MEDICARE ADVANTAGE [facility] ([facility]) Jul 09, 2022 [id number] DARIUS TIJERINA PATIENT HUMANA [facility] ([facility]) MEDICARE ADVANTAGE [facility] ([facility]) Jul 09, 2022 [id number] [phone] DARIUS TIJERINA PATIENT MEDICA [facility] ([facility]) MEDICARE ADVANTAGE [facility] ([facility]) Jul 09, 2018 [id number] [phone] DARIUS TIJERINA PATIENT MEDICARE (WN) MEDICARE (M) PART A Aug 09, 2011 PART A [id number] DARIUS TIJERINA PATIENT MEDICARE ([facility]) MEDICARE (M) PART B Aug 09, 2011 PART B [id number] DARIUS TIJERINA PATIENT Selected Encounter This section includes the information on record at [place] for the Encounter. Date/Time Encounter Type Encounter Description Reason Provider Source Dec 19, 2023 02:00 PM OFFICE O/P EST HI 40 MIN ONCOLOGY/TUMOR ICD-10-CM C90.00 Multiple myeloma not having achieved remission JANE SALGADO [facility] Encounter Template Text not used by [place] Assessments - Encounter Diagnoses This section includes the primary and secondary diagnoses documented for the Encounter. Date/Time Primary/Secondary Diagnosis Diagnosis Name Provider Source Dec 19, 2023 04:29 PM PRIMARY Multiple myeloma not having achieved [facility] Dec 19, 2023 04:29 PM SECONDARY Allergy, unspecified, initial [facility] Dec 19, 2023 04:29 PM SECONDARY Anemia, unspecified FRID[facility] Dec 19, 2023 04:29 PM SECONDARY Chronic kidney disease, unspecified FRID,[facility] Dec 19, 2023 04:29 PM SECONDARY Familial hypophosphatemia [facility] Dec 19, 2023 04:29 PM SECONDARY Hypomagnesemia FRID,[facility] Plan of Treatment: Future Appointments (+ 6 months) and Future Tests (+/- 45 days) The Plan of Treatment section includes future care activities for the patient from all [place] [facility] This section includes future appointments and future orders which are active, pending or scheduled. Future Appointments This section includes appointments that were scheduled to occur 6 months from the date of the Encounter, up to a maximum of 20 appointments. The data comes from all [place] [facility]. Appointment Date/Time Appointment Type Appointme nt Facility Name Jan 16, 2024 11:00 AM AM[place]ATORY - NONE [place] [facility] [facility] Jan 31, 2024 05:50 PM AMBULATORY - REHAB MEDICIN E [facility] Feb 14, 2024 11:00 AM AMBUL[facility]ORY - NONE [place] [facility] [facility] Mar 12, 2024 01:30 PM [facility]ORY - NONE [place] [facility] [facility] Mar 12, 2024 02:30 PM AMBULATORY - MEDICINE [facility] Mar 28, 2024 09:30 AM AMBULATORY - REHAB MEDICIN E [facility] Apr 02, 2024 02:00 PM AM[facility]ORY - NONE [place] [facility] [facility] Apr 11, 2024 01:00 PM AM[facility]ATORY - NONE [place] [facility] Apr 22, 2024 02:30 PM AMBULATORY - MEDICINE RO[facility] ERENDIRA ([facility]) May 12, 2024 12:45 PM [facility] Jun 12, 2024 12:30 PM AM[facility]ULATORY - NONE [place] [facility] Jun 12, 2024 01:30 PM AMBULATORY - MEDICINE JENNIFERMireya [facility] Active, Pending, and Scheduled Orders This section includes a listing of several types of active, pending, and scheduled orders, including clinic medications orders, diagnostic test orders, procedure orders and consult orders; where thestart date of the order is 45 days before the date of the Encounter or 45 days after the date of the Encounter. The data comes from all [place] treatment facilities. Test Date/Time Test Type Test Details Facility Name Jan 04, 2024 11:14 AM Consult Order [facility] Cons Duplex [facility] Lab Results: +/- 30 days of the encounter This section includes the Chemistry and Hematology Lab Results on record with [place] for the patient. Radiology Reports and Pathology Reports are provided separately, in subsequent sections. Lab Results This section contains the Chemistry/Hematology Results that were resulted 30 days before or 30 daysafter the date of the Encounter. Date/Time Source Result Type Result - Unit Interpretation Reference Range Comment Dec 19, 2023 12:56 PM [facility] ELP/IMMFIX,SERUM PANEL Specimen Type: SERUM Comment: Peak(s) too small to quantitate. Ordering Provider: FERNANDA FITZGERALD Report Released Date/Time: November 21, 2023 12:19 PM Reporting Lab: [facility] [phone] Performing Lab: [facility] [address] PROTEIN,TOTAL 6.3 g/dL 6.0-8.3 .IDENTIFICATIO N 1 IgA lambda .ALBUMIN FRACTION 4.21 g/dL 3.66-4.78 .ALPHA 1 FRACTION 0.27 g/dL 0.14-0.38 .ALPHA 2 FRACTION 0.77 g/dL 0.50-0.90 .BETA 1 FRACTION 0.41 g/dL 0.33-0.55 .BETA 2 FRACTION 0.33 g/dL 0.20-0.52 .GAMMA FRACTION 0.30 g/dL L 0.58-1.72 .TOTAL PROTEIN 6.3 g/dL 6.0-8.3 .INTERPRETATIO N MONOCLONAL Dec 19, 2023 12:56 PM [facility] KAPPA/LAMBDA LC FREE,RATIO Specimen Type: SERUM Comment: [...] therapy of these disorders. Test Performed by [facility], [employer] [facility], [address] [place] [address] Robert Swift M.D., Ph.D., Director of Laboratories , CLIA [id number] Ordering Provider: FERNANDA FITZGERALD Report Released Date/Time: November 21, 2023 12:19 PM Reporting Lab: [facility] [phone] Performing Lab: [address] .KAPPA LT CHAIN,FREE 16.1 mg/L 3.3-19.4 .LAMBDA LC,FREE 29.5 mg/L H 5.7-26.3 .KAPPA/LAMBDA, FREE 0.55 0.26-1.65 Dec 19, 2023 12:56 PM [facility] LD,TOTAL Specimen Type: PLASMA No comment entered. Ordering Provider: FERNANDA FITZGERALD Report Released Date/Time: November 21, 2023 12:19 PM Reporting Lab: [facility] [phone] Performing Lab: [facility] [phone] LD,TOTAL 131 U/L 125-220 Dec 19, 2023 12:56 PM [facility] COMPREHENSIVE METABOLIC PANEL+MG Specimen Type: PLASMA No comment entered. Ordering Provider: FERNANDA FITZGERALD Report Released Date/Time: November 21, 2023 12:19 PM Reporting Lab: [facility] [phone] Performing Lab: [facility] [phone] CREATININE 1.8 mg/dL H 0.7-1.2 UREA NITROGEN 33 mg/dL H 8-26 GLUCOSE 204 mg/dL H 70-100 SODIUM 142 mmol/L 136-145 POTASSIUM 4.1 mmol/L 3.5-5.1 CHLORIDE 109 mmol/L H 98-107 CO2 20 mmol/L L 22-29 CALCIUM 9.4 mg/dL 8.4-10.2 PROTEIN,TOTAL 6.8 g/dL 6.0-8.3 ALBUMIN 4.3 g/dL 3.5-5.2 BILIRUBIN, TOTAL 0.5 mg/dL 0.2-1.2 MAGNESIUM 2.3 mg/dL 1.6-2.6 ANION GAP 13 mmol/L 5-15 ALKALINE PHOSPHATASE 116 U/L 40-150 ALT/SGPT 22 U/L <55 AST/SGOT 10 U/L <34 .CREAT EGFR(CKD-EPI) 38 L >60 Dec 19, 2023 12:56 PM [facility] CBC & DIFF Specimen Type: BLOOD Comment: Automated Differential Performed Ordering Provider: FERNANDA FITZGERALD Report Released Date/Time: November 21, 2023 12:19 PM Reporting Lab: [facility] [id number] Performing Lab: [facility] [phone] WBC 5.30 10*3/uL 4.0-11.0 RBC 3.91 10*6/uL L 4.6-6.2 HGB 12.9 g/dL L 13.5-17.9 HCT 38.8 L 41-54 MCV 99.2 fL 80-100 MCH 33.0 pg 27-33 MCHC 33.2 g/dL 32.0-37.5 PLT 122 10*3/uL L 150-400 MPV 9.9 fL 7.4-10.4 NEUT 63.9 40.0-80.0 LYMPHS 19.4 15.0-45.0 MONO 13.8 H 2.0-12.0 EOSINO 0.6 0.0-6.0 BASO 0.4 0.0-2.0 RDW 15.2 H 11.5-14.5 ABS LYMPH 1.03 10*3/uL 1.0-4.0 ABS MONO 0.73 10*3/uL 0.1-1.0 ABS NEUT 3.39 10*3/uL 2.0-7.7 ABS EOS 0.03 10*3/uL 0-0.5 ABS BASO 0.02 10*3/uL 0-0.2 IG(META,MYELO, PRO) 1.9 ABS IMMATURE GRAN 0.10 10*3/uL 0-0.1 Vital Signs: All taken on the encounter date This section contains inpatient and outpatient Vital Signs collected on the date of the Encounter. Date/Time Temperature Pulse Blood Pressure Respiratory Rate SP02 Pain Height Weight Body Mass Index Source Dec 19, 2023 01:35 PM 98 89 124/76 25 97 0 215.5 35 [facility] Encounter Notes: All associated encounter notes This section contains the clinical notes associated to the Encounter. Date/Time Encounter Note(s) Provider Source Dec 19, 2023 04:05 PM HEMATOLOGY AND ONCOLOGY ATTENDING NOTE: LOCAL TITLE: HEME/ONC CLINIC NOTE STANDARD TITLE: HEMATOLOGY AND ONCOLOGY ATTENDING NOTE DATE OF NOTE: DEC 19, 2023@16:05 ENTRY DATE: DEC 19, 2023@16:05:19 AUTHOR: JANE SALGADO COSIGNER: URGENCY: STATUS: COMPLETED Diagnosis: IgA lamda Multiple myeloma Treatment: current treatment maintenance Lenalidomide 10mg po daily for 21 days than 7 off and Dexamethasone 20mg (50% due to blood sugars/tolerance) HPI: 78yr gentleman with multiple myeloma (IgA), started on Lenalidomide/Dex/Bortezomib 05/02/18 and completed 20 cycles in 07/2019. Transplant was discussed but multiple co-morbidities influenced the decision not to pursue. His treatment was complicated by neutropenia, but overall well tolerated with very good response to treatment. Was switched to maintenance Rev/Dex in 08/2019 Reports today for dirqdo-oo-rur 2 days of revlimid left TODAY Feeling at his baseline No MCHUGH to report Denies vision changes, falls, gait or cognition alterations. Shares he has a lot of rhinorrhea with seasonal allegies No OC mass or mucositis to report. No nystatin swish and spit this month but has if he needs it. He does check for cervical, axillary and inguinal LAD and has none to report. SOB is at baseline-bad. Cough persist but no longer productive. He is quit SOB and is adherent to his inhaler utilization-the note from his Pulm eval on 11/01 is pending. Denies vomiting/nausea. Denies changes to his baseline bowel or bladder pattern. No reports of bleeding. Bruises easily but this is not new. Has a large fresh hematoma on his right arm...scrapped it against the wall Denies bone or joint pain. Denies the presence of LE edema or calf pain. 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 Denies fever, chills, night sweats, unplanned wt. [...] - Fat pad : negative Cytogenetic studies ([id number] from 04/08/2018) on bone marrow aspirate done at [facility] in [place], [place] reportedly show the following FISH results: FISH RESULTS: Summary of FISH results: Gain of 1q Absent FGFR3/IGH rearrangement t(4;14) Absent CCND1/IGH rearrangement t(11;14) Present Deletion 13q, loss of 13 Absent IGH/MAF rearrangement t(14;16) Absent IGH/MAFB rearrangement t(14;20) Absent TP53 Deletion (17p) Absent FISH RESULTS: nuc idris(CDKN2C,CKS1B) x2[100] nuc idris(MWMA1c6,IGHx3~4) [87/100] nuc idris(JDBV5e6,IGHx4)(CCND1 con IGHx2)[61/100]/ (CCNDx2,IGHx3)(CCND1 con IGHx1)[16/100]/ (CCND1,IGH) x3(CCND1 con IGHx2) [12/100] nuc idris([id number]/D13S25,13qter)x 2[100] nuc idris(IGHx3~4,MAFBx2)[88/100] nuc idris(IGHx3~4,MAFx2)[84/100] nuc idris(TP53,D17Z1)x2[100] COMMENT: [...] the International Myeloma Working Group and the [facility]. The other IGH translocation probes showed extra [...] Peak(s) too small to quantitate PHYSICAL EXAM ========= A&O in NAD VS Temperature: 98 F [36.7 C] (12/19/2023 13:35) Blood Pressure: 124/76 (12/19/2023 13:35) Pulse: 89 (12/19/2023 13:35) Respiration: 25 (12/19/2023 13:35) Pain: 0 (12/19/2023 13:35) Pulse Oximetry: 97% (12/19/2023 13:35)Weight-Last 3: Measurement DT WEIGHT 12/19/2023 13:35 215.5(97.75)[35*] 11/02/2023 13:25 218.1(98.93)[35*] 10/24/2023 13:08 216(97.98)[35*] ECO PERRLA, Sclera anicteric OC/OP: No evidence of mass, mucositis or thrush Neck: No appreciable LAD or mass Chest: HRR, LS CTA. he is SOB working to ambulate the clinic Abd: soft n/t BS +x4 No appreciable edema in the extremities Hematoma on the right forearm deep purple, flat, no swelling in the elbow joint. LABS Today's Labs: WBC: 5.30 SEGS: 63.9 LYMPHS: 19.4 MONOCYTES: 13.8 H EOSINO: 0.6 BASO: 0.4 NEUTROPHIL, ABSOLUTE: 3.39 EOSINO, ABSOLUTE: 0.03 BASO, ABSOLUTE: 0.02 MONOCYTE, ALTERNATE ABS: 0.73 LYMPHS, ALTERNATE ABS: 1.03 I.9 IG,ABSOLUTE: 0.10 RBC: 3.91 L HGB: 12.9 L HCT: 38.8 L MCV: 99.2 MCH: 33.0 MCHC: 33.2 RDW: 15.2 H PLT: 122 L MPV: 9.9 GLUCOSE: 204 H UREA NITROGEN: 33 H CREATININE: 1.8 H SODIUM: 142 POTASSIUM: 4.1 CHLORIDE: 109 H CO2: 20 L CALCIUM: 9.4 MAGNESIUM: 2.3 ANION GAP: 13 PROTEIN,TOTAL: 6.8 ALBUMIN: 4.3 BILIRUBIN,TOTAL: 0.5 ALKALINE PHOSPHATASE(37C): 116 SGOT(37C): 10 SGPT(37C): 22 LD,TOTAL(37C P-L): 131 Discussed today Oncology imaging ======== 05/07/23 PET scan results are as follows: [...] MD Mcgee no action- continue to monitor Therefore for his IgA lambda myeloma continue maintenance lenolidimide Patient is clinically and symptomatically stable Will continue current course - Would continue lenalidomide 10 mg daily x 21 days on, 7 days off, with low dose dexamethasone (20mg po once a week) -he has no question or concerns re completing his REMS survey -Provider complete REMS survey - [place] will continue 81mg ASA 2. Renal insufficiency: creatinine variable-at 1.8 today. Placed Renal consult as does have DM type II and myeloma well managed and Renal most suspecting of CKD in the setting of DM, per their notations low suspicion for myeloma affect/involvement. Monitor 3. 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 Prior reports of thrush-on decadron-has a supply of nystatin if needed 5. Hypo phosphorus- using 1KPhos packet a day now and repleted 6. intermittently elevated uric acid-some foot pain- did not tolerate allopurinol and foot pain is managed with OTC cream trend 7. SOB-progressive- Pulm eval on 11/02/23 8. Eccomoysis-right forearm-healing no drainage, skin sheering or erythema. Continue to monitor 9. rhinorrhea with seasonal allergies-will send zyrtec 45 min spent in review, direct care, coordination and documentation /mindy/ JANE SALGADO APRN CLINICAL NURSE SPECIALIST Signed: 12/19/2023 16:33 JANE SALGADO [facility] Dec 19, 2023 01:36 PM INTERNAL MEDICINE OUTPATIENT NOTE: LOCAL TITLE: MEDICINE CLINIC NURSING NOTE STANDARD TITLE: INTERNAL MEDICINE OUTPATIENT NOTE DATE OF NOTE: DEC 19, 2023@13:36 ENTRY DATE: DEC 19, 2023@13:36:17 AUTHOR: JOSEFA ROCA EXP COSIGNER: URGENCY: STATUS: COMPLETED TYPE OF VISIT: Appointment Check In Type of appointment: In-person appointment REASON FOR VISIT: Scheduled visit ALLERGIES: ATORVASTATIN (Aug 17, 2015) SIMVASTATIN (Aug 17, 2015) VITAL SIGNS: Blood Pressure: 124/76 (12/19/2023 13:35) Pulse: 89 (12/19/2023 13:35) Respiration: 25 (12/19/2023 13:35) Temperature: 98 F [36.7 C] (12/19/2023 13:35) Weight: 215.5 lb [97.75 kg] (12/19/2023 13:35) Height: 66 in [167.6 cm] (05/07/2023 14:10) BMI: 34.9 O2 Sat: 97% (12/19/2023 13:35) Pain: 0 (12/19/2023 13:35) PAIN SCREEN: Patient is not having significant pain that they wish to discuss with their provider today. MEDICATION Over the Counter/Herbal Medications: The patient denies taking any outside medications or herbals. /mindy/ JOSEFA ROCA LPN Signed: 12/19/2023 13:37 JOSEFA ROCA [facility]
--- OUTSIDE RECORDS SUMMARY | 2024-06-08 10:50 | XMS_ITS | Encounter Summary ---
Author Name [place] Organization [place] Address [address] [place] [id number] Care Team Providers Care Public Health Professor Name Role Phone ALESHIA SHELBY Primary Care [...] Name Patient's Relationship to Policy Colbert HUMANA [facility] MEDICARE ADVANTAGE [facility] ([facility]) Jul 09, 2022 [id number] [phone] [id number] DARIUS TIJERINA PATIENT HUMANA [facility] ([facility]) MEDICARE ADVANTAGE [facility] ([facility]) Jul 09, 2022 [id number] [phone] [id number] DARIUS TIJERINA PATIENT MEDICA [facility] ([facility]) MEDICARE ADVANTAGE [facility] ([facility]) Jul 09, 2018 [id number] [phone] DARIUS TIJERINA PATIENT MEDICARE ([facility]) MEDICARE ([place]) PART A Aug 09, 2011 PART A [id number] [phone] DARIUS TIJERINA PATIENT MEDICARE ([facility]) MEDICARE ([place]) PART B Aug 09, 2011 PART B [id number] DARIUS TIJERINA PATIENT Selected Encounter This section includes the information on record at [place] for the Encounter. Date/Time Encounter Type Encounter Description Reason Provider Source Mar 13, 2024 11:16 AM Outpatient Encounter CHEMOTHERAPY PROC. UNIT-MED. JANE SALGADO [facility] Encounter Template Text not used by [place] Plan of Treatment: Future Appointments (+ 6 months) and Future Tests (+/- 45 days) The Plan of Treatment section includes future care activities for the patient from all [place] treatmentfacilities. This section includes future appointments and future orders which are active, pending or scheduled. Future Appointments This section includes appointments that were scheduled to occur 6 months from the date of the Encounter, up to a maximum of 20 appointments. The data comes from all [place] treatment facilities. Appointment Date/Time Appointment Type Appointme nt Facility Name Mar 28, 2024 09:30 AM AMBULATORY - REHAB MEDICIN E [facility] Apr 02, 2024 02:00 PM [facility] Apr 11, 2024 01:00 PM [facility] Apr 22, 2024 02:30 PM AMBULATORY - MEDICINE [facility] May 12, 2024 12:45 PM [facility] Jun 12, 2024 12:30 PM [facility] Jun 12, 2024 01:30 PM AMBULATORY - MEDICINE [facility] Lab Results: +/- 30 days of the encounter This section includes the Chemistry and Hematology Lab Results on record with [place] for the patient. Radiology Reports and Pathology Reports are provided separately, in subsequent sections. Lab Results This section contains the Chemistry/Hematology Results that were resulted 30 days before or 30 daysafter the date of the Encounter. Date/Time Source Result Type Result - Unit Interpretation Reference Range Comment Mar 12, 2024 01:12 PM [facility] KAPPA/LAMBDA LC FREE,RATIO Specimen Type: SERUM [...] therapy of these disorders. Test Performed by [employer], [facility], [address] [place] [address] Robert Swift M.D., Ph.D., Director of Laboratories , CLIA [id number] Ordering Provider: JANE SALGADO Report Released Date/Time: Dec 19, 2023 02:29 PM Reporting Lab: [facility] [id number] Performing Lab: [address] .KAPPA LT CHAIN,FREE 15.5 mg/L 3.3-19.4 .LAMBDA LC,FREE 31.8 mg/L H 5.7-26.3 .KAPPA/LAMBDA, FREE 0.49 0.26-1.65 Mar 12, 2024 01:12 PM [facility] ELP/IMMFIX,SERUM PANEL Specimen Type: SERUM Comment: Peak(s) too small to quantitate. Ordering Provider: JANE SALGADO Report Released Date/Time: Dec 19, 2023 02:29 PM Reporting Lab: [facility] [id number] Performing Lab: [facility] [address] PROTEIN,TOTAL 6.3 g/dL L 6.4-8.3 .IDENTIFICATIO N 1 IgA lambda .ALBUMIN FRACTION 4.18 g/dL 3.66-4.78 .ALPHA 1 FRACTION 0.28 g/dL 0.14-0.38 .ALPHA 2 FRACTION 0.81 g/dL 0.50-0.90 .BETA 1 FRACTION 0.40 g/dL 0.33-0.55 .BETA 2 FRACTION 0.34 g/dL 0.20-0.52 .GAMMA FRACTION 0.30 g/dL L 0.58-1.72 .TOTAL PROTEIN 6.3 g/dL 6.0-8.3 .INTERPRETATIO N MONOCLONAL Mar 12, 2024 01:12 PM [facility] TSH W/REFLEX TO FREE T4 Specimen Type: PLASMA Comment: Automated Differential Performed Ordering Provider: JANE SALGADO Report Released Date/Time: Dec 19, 2023 02:29 PM Reporting Lab: [facility] [id number] Performing Lab: [facility] [id number] TSH 0.79 u[IU]/mL 0.35-4.94 Mar 12, 2024 01:12 PM [facility] URIC ACID Specimen Type: PLASMA No comment entered. Ordering Provider: JANE SALGADO Report Released Date/Time: Dec 19, 2023 02:29 PM Reporting Lab: [facility] [address] Performing Lab: [facility] [phone] URIC ACID 8.2 mg/dL H 3.7-7.7 Mar 12, 2024 01:12 PM [facility] LD,TOTAL Specimen Type: PLASMA No comment entered. Ordering Provider: JANE SALGADO Report Released Date/Time: Dec 19, 2023 02:29 PM Reporting Lab: [facility] [address] Performing Lab: [facility] [address] LD,TOTAL 133 U/L 125-220 Mar 12, 2024 01:12 PM [facility] COMPREHENSIVE METABOLIC PANEL+MG Specimen Type: PLASMA Comment: Automated Differential Performed Ordering Provider: JANE SALGADO Report Released Date/Time: Dec 19, 2023 02:29 PM Reporting Lab: [facility] [phone] Performing Lab: [facility] [address] CREATININE 1.7 mg/dL H 0.7-1.2 UREA NITROGEN [...] L >60 Mar 12, 2024 01:12 PM [facility] CBC & DIFF Specimen Type: BLOOD Comment: Automated Differential Performed Ordering Provider: JANE SALGADO Report Released Date/Time: Dec 19, 2023 02:29 PM Reporting Lab: [facility] [address] Performing Lab: [facility] [address] WBC 3.7 L 4.0-11.0 RBC 4.00 L [...]
--- OUTSIDE RECORDS SUMMARY | 2024-06-08 10:50 | XMS_ITS | Encounter Summary ---
Author Name [facility] [place] [facility] [place] [facility] [place] Address [address] [place] [address] Care Team Providers Care Voip Network Technician Name Role Phone ALESHIA SHELBY Primary Care [...] Name Patient's Relationship to Policy Colbert HUMANA [facility] MEDICARE ADVANTAGE [facility]) Jul 09, 2022 [id number] DARIUS TIJERINA PATIENT [employer]MANA [facility]) MEDICARE ADVANTAGE [facility]) Jul 09, 2022 [id number] DARIUS TIJERINA PATIENT MEDICA [facility] ([facility]) MEDICARE ADVANTAGE [facility]) Jul 09, 2018 [id number] [phone] DARIUS TIJERINA PATIENT MEDICARE ([place]) MEDICARE ([place]) PART A Aug 09, 2011 PART A [id number] [phone] DARIUS TIJERINA PATIENT MEDICARE ([facility]) MEDICARE (M) PART B Aug 09, 2011 PART B [id number] [phone] DARIUS TIJERINA PATIENT Selected Encounter This section includes the information on record at [place] for the Encounter. Date/Time Encounter Type Encounter Description Reason Provider Source Oct 24, 2023 01:00 PM OFFICE O/P EST HI 40 MIN ONCOLOGY/TUMOR ICD-10-CM C90.00 Multiple myeloma not having achieved [facility] Encounter Template Text not used by [place] Assessments - Encounter Diagnoses This section includes the primary and secondary diagnoses documented for the Encounter. Date/Time Primary/Secondary Diagnosis Diagnosis Name Provider Source Oct 24, 2023 04:14 PM PRIMARY Multiple myeloma not having achieved [facility] Oct 24, 2023 04:14 PM SECONDARY Chronic kidney disease, unspecified [facility] Oct 24, 2023 04:14 PM SECONDARY Chronic obstructive pulmonary disease, unspecified [facility] Oct 24, 2023 04:14 PM SECONDARY Familial hypophosphatemia [facility] Oct 24, 2023 04:14 PM SECONDARY Hypomagnesemia [facility] Oct 24, 2023 04:14 PM SECONDARY Spontaneous ecchymoses [facility] Plan of Treatment: Future Appointments (+ 6 months) and Future Tests (+/- 45 days) The Plan of Treatment section includes future care activities for the patient from all [place] [facility] This section includes future appointments and future orders which are active, pending or scheduled. Future Appointments This section includes appointments that were scheduled to occur 6 months from the date of the Encounter, up to a maximum of 20 appointments. The data comes from all [place] [facility] Appointment Date/Time Appointment Type Appointme nt Facility Name Nov 02, 2023 12:30 PM AMB[facility]ORY - NONE [facility] Nov 02, 2023 01:00 PM [facility]IC[facility] Nov 02, 2023 02:00 PM [facility] November 21, 2023 11:30 AM AMBULATORY - NONE [facility] Dec 19, 2023 01:00 PM AMBULATORY - NONE [facility] Dec 19, 2023 02:00 PM AMBULATORY - MEDICINE [facility] Jan 16, 2024 11:00 AM AMBULATORY - NONE [facility] Jan 31, 2024 05:50 PM AMBULATORY - REHAB MEDICIN E [facility] Feb 14, 2024 11:00 AM AMBULATORY - NONE [facility] Mar 12, 2024 01:30 PM AMBULATORY - NONE [facility] Mar 12, 2024 02:30 PM AMBULATORY - MEDICINE [facility] Mar 28, 2024 09:30 AM AMBULATORY - REHAB MEDICIN E [facility] Apr 02, 2024 02:00 PM AMBULATORY - NONE [facility] Apr 11, 2024 01:00 PM AMBULATORY - NONE [facility] Apr 22, 2024 02:30 PM AMBULATORY - MEDICINE [facility] ([facility]) Lab Results: +/- 30 days of the encounter This section includes the Chemistry and Hematology Lab Results on record with [place] for the patient. Radiology Reports and Pathology Reports are provided separately, in subsequent sections. Lab Results This section contains the Chemistry/Hematology Results that were resulted 30 days before or 30 daysafter the date of the Encounter. Date/Time Source Result Type Result - Unit Interpretation Reference Range Comment Oct 24, 2023 12:12 PM [facility] KAPPA/LAMBDA LC FREE,RATIO Specimen Type: SERUM [...] therapy of these disorders. Test Performed by [facility], [facility], [address] [place] [address] Robert Swift M.D., Ph.D., Director of Laboratories , [place] [id number] Ordering Provider: JANE SALGADO Report Released Date/Time: Sep 26, 2023 01:45 PM Reporting Lab: [facility] [address] Performing Lab: [address] .KAPPA LT CHAIN,FREE 15.4 mg/L 3.3-19.4 .LAMBDA LC,FREE 35.4 mg/L H 5.7-26.3 .KAPPA/LAMBDA, FREE 0.44 0.26-1.65 Oct 24, 2023 12:12 PM [facility] ELP/IMMFIX,SERUM PANEL Specimen Type: SERUM Comment: Automated Differential Performed Ordering Provider: JANE SALGADO Report Released Date/Time: Sep 26, 2023 01:45 PM Reporting Lab: [facility] [address] Performing Lab: [facility] [address] PROTEIN,TOTAL 6.0 g/dL 6.0-8.3 .IDENTIFICATIO N 1 IgA lambda .ALBUMIN FRACTION 4.01 g/dL 3.66-4.78 .ALPHA 1 FRACTION 0.23 g/dL 0.14-0.38 .ALPHA 2 FRACTION 0.73 g/dL 0.50-0.90 .BETA 1 FRACTION 0.42 g/dL 0.33-0.55 .BETA 2 FRACTION 0.31 g/dL 0.20-0.52 .GAMMA FRACTION 0.29 g/dL L 0.58-1.72 .TOTAL PROTEIN 6.0 g/dL 6.0-8.3 .INTERPRETATIO N MONOCLONAL Oct 24, 2023 12:12 PM [facility] TSH W/REFLEX TO FREE T4 Specimen Type: PLASMA Comment: Automated Differential Performed Ordering Provider: JANE SALGADO Report Released Date/Time: Sep 26, 2023 01:45 PM Reporting Lab: [facility] [address] Performing Lab: [facility] [address] TSH 0.87 u[IU]/mL 0.35-4.94 Oct 24, 2023 12:12 PM [facility] URIC ACID Specimen Type: PLASMA No comment entered. Ordering Provider: JANE SALGADO Report Released Date/Time: Sep 26, 2023 01:45 PM Reporting Lab: [facility] [address] Performing Lab: [facility] [address] URIC ACID 8.0 mg/dL H 3.5-7.2 Oct 24, 2023 12:12 PM [facility] HEMOGLOBIN A1C Specimen Type: BLOOD Comment: [...] Oct 17, 2023 02:46 PM Reporting Lab: [facility] [address] Performing Lab: [facility] [address] HEMOGLOBIN A1C 6.5 H 4.0-6.0 Oct 24, 2023 12:12 PM [facility] LD,TOTAL Specimen Type: PLASMA No comment entered. Ordering Provider: JANE SALGADO Report Released Date/Time: Sep 26, 2023 01:45 PM Reporting Lab: [facility] [address] Performing Lab: [facility] [address] LD,TOTAL 115 U/L L 125-220 Oct 24, 2023 12:12 PM [facility] CBC & DIFF Specimen Type: BLOOD Comment: Automated Differential Performed Ordering Provider: JANE SALGADO Report Released Date/Time: Sep 26, 2023 01:45 PM Reporting Lab: [facility] [address] Performing Lab: [facility] [address] WBC 3.26 10*3/uL L 4.0-11.0 RBC 3.67 [...] 10*3/uL 0-0.1 Oct 24, 2023 12:12 PM [facility] COMPREHENSIVE METABOLIC PANEL+MG Specimen Type: PLASMA Comment: Automated Differential Performed Ordering Provider: JANE SALGADO Report Released Date/Time: Sep 26, 2023 01:45 PM Reporting Lab: [facility] [address] Performing Lab: [facility] [address] CREATININE 1.7 mg/dL H 0.7-1.2 UREA NITROGEN [...] L >60 Sep 26, 2023 12:24 PM [facility] KAPPA/LAMBDA LC FREE,RATIO Specimen Type: SERUM [...] therapy of these disorders. Test [facility] by [facility], [facility], [address] [place] [address] Robert Swift M.D., Ph.D., Director of Laboratories , [place] [id number] Ordering Provider: JANE SALGADO Report Released Date/Time: Aug 29, 2023 01:22 PM Reporting Lab: [facility] [address] Performing Lab: [address] .KAPPA LT CHAIN,FREE 26.4 mg/L H 3.3-19.4 .LAMBDA LC,FREE 57.2 mg/L H 5.7-26.3 .KAPPA/LAMBDA, FREE 0.46 0.26-1.65 Sep 26, 2023 12:24 PM [facility] ELP/IMMFIX,SERUM PANEL Specimen Type: SERUM Comment: IM FIX ADDED - Band(s) present. See Identification in report. Ordering Provider: JANE SALGADO Report Released Date/Time: Aug 29, 2023 01:22 PM Reporting Lab: [facility] [address] Performing Lab: [facility] [address] PROTEIN,TOTAL 6.2 g/dL 6.0-8.3 .IDENTIFICATIO N 1 IgA lambda .IDENTIFICATIO N 2 IgM kappa .ALBUMIN FRACTION 4.04 g/dL 3.66-4.78 .ALPHA 1 FRACTION 0.29 g/dL 0.14-0.38 .ALPHA 2 FRACTION 0.88 g/dL 0.50-0.90 .BETA 1 FRACTION 0.41 g/dL 0.33-0.55 .BETA 2 FRACTION 0.25 g/dL 0.20-0.52 .GAMMA FRACTION 0.33 g/dL L 0.58-1.72 .TOTAL PROTEIN 6.2 g/dL 6.0-8.3 .INTERPRETATIO N BICLONAL Sep 26, 2023 12:24 PM [facility] TSH W/REFLEX TO FREE T4 Specimen Type: PLASMA Comment: Automated Differential Performed Ordering Provider: JANE SALGADO Report Released Date/Time: Aug 29, 2023 01:22 PM Reporting Lab: [facility] [address] Performing Lab: [facility] [address] TSH 1.67 u[IU]/mL 0.35-4.94 Sep 26, 2023 12:24 PM [facility] LD,TOTAL Specimen Type: PLASMA No comment entered. Ordering Provider: JANE SALGADO Report Released Date/Time: Aug 29, 2023 01:22 PM Reporting Lab: [facility] [address] Performing Lab: [facility] [address] LD,TOTAL 127 U/L 125-220 Sep 26, 2023 12:24 PM [facility] URIC ACID Specimen Type: PLASMA No comment entered. Ordering Provider: JANE SALGADO Report Released Date/Time: Aug 29, 2023 01:22 PM Reporting Lab: [facility] [address] Performing Lab: [facility] [address] URIC ACID 7.7 mg/dL H 3.5-7.2 Sep 26, 2023 12:24 PM [facility] COMPREHENSIVE METABOLIC PANEL+MG Specimen Type: PLASMA Comment: Automated Differential Performed Ordering Provider: JANE SALGADO Report Released Date/Time: Aug 29, 2023 01:22 PM Reporting Lab: [facility] [address] Performing Lab: [facility] [address] CREATININE 1.8 mg/dL H 0.7-1.2 UREA NITROGEN [...] L >60 Sep 26, 2023 12:24 PM [facility] CBC & DIFF Specimen Type: BLOOD Comment: Automated Differential Performed Ordering Provider: JANE SALGADO Report Released Date/Time: Aug 29, 2023 01:22 PM Reporting Lab: [facility] [address] Performing Lab: [facility] [address] WBC 3.18 10*3/uL L 4.0-11.0 RBC 4.04 [...] Height Weight Body Mass Index Source Oct 24, 2023 01:08 PM 98 93 133/73 [address] [facility] Radiology Reports: +/- 30 days of the [...] the Encounter. The data comes from all [place] treatment facilities. Date/Time Radiology Report Provider Source Nov 02, 2023 12:11 PM CHEST 2 VIEWS PA A ND LAT: DARIUS TIJERINA [id number] [id number] M Exm Date: NOV 02, 2023@12:11 Req Phys: ELIJAH BOYCE Pat Loc: [facility] PULM EVAL (Req'g Loc) Img Loc: MAIN X-RAY Service: Unknown (Case [id number] COMPLETE) CHEST 2 VIEWS PA AND LAT (RAD Detailed) CPT:71715 Reason for Study: COPD with worsening dyspnea [...] 02, 2023 Date Verified: NOV 02, 2023 Lactation Consultant E-Sig:/ES/RICHA GAONA MD Report: X-RAY EXAM OF chest, PA and lateral INDICATION: Reason for Study: COPD with worsening dyspnea [place] IS NOT under investigation for COVID-19 or [...] Primary Interpreting Staff: RICHA GAONA MD, RADIOLOGIST (Lactation Consultant) /RICHA BOLDEN [facility] Encounter Notes: All associated encounter notes This section contains the clinical notes associated to the Encounter. Date/Time Encounter Note(s) Provider Source Oct 26, 2023 03:11 PM ADDENDUM: LOCAL TITLE: Addendum STANDARD TITLE: ADDENDUM DATE OF NOTE: OCT 26, 2023@15:11:02 ENTRY DATE: OCT 26, 2023@15:11:03 AUTHOR: TRISH MCCORMICK EXP COSIGNER: URGENCY: STATUS: COMPLETED FLC improved. Will make Jose MACHINE STONECUTTER aware. Collection time: Oct 24, 2023@12:12 Test Name Result Units Range --------- ------ ----- ----- .KAPPA LT CHAIN,FREE 15.4 mg/L 3.3 - 19.4 .LAMBDA LC,FREE 35.4 H mg/L 5.7 - 26.3 .KAPPA/LAMBDA,FREE 0.44 0.26 - 1.65 Collection time: Sep 26, 2023@12:24 Test Name Result Units Range --------- ------ ----- ----- .KAPPA LT CHAIN,FREE 26.4 H mg/L 3.3 - 19.4 .LAMBDA LC,FREE 57.2 H mg/L 5.7 - 26.3 .KAPPA/LAMBDA,FREE 0.46 0.26 - 1.65 /es/ TRISH JUSTIN CONTROL ENGINEER CONTROL ENGINEER Signed: 10/26/2023 15:13 Receipt Acknowledged By: 10/29/2023 08:47 /mindy/ JANE SALGADO APRN CLINICAL NURSE SPECIALIST --- Original Document --- 10/24/23 HEME/ONC CLINIC NOTE: Diagnosis: IgA lamda Multiple [...] maintenance Rev/Dex in 08/2019 Reports today for vodjcx-uh-cxve his last revlimid today TODAY Feeling back at his baseline No LOAIZA to report Denies vision changes, falls, gait [...] SOB and is adherent to his inhaler utilization-he is looking forward to Pulm eval on 11/01 Denies vomiting/nausea. Denies changes to his baseline bowel or bladder pattern. No reports of bleeding. Bruises easily but this is not new. Has a large fresh hematoma on his right arm...scrapped it against the wall Denies bone or joint pain. Denies the presence of LE edema or calf pain. 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 Denies fever, chills, night sweats, unplanned wt. loss. Continues with his ASA, lenolidimide, decadron, mag oxide, KPhos (1 packet), B12 and prn nystatin ordered through Hem/Onc without issue. PCP tagged me re should be on antiviral acyclovir prophy and this is not indicated in single agent revlimid but appreciate the ask. HEM/ONC HISTORY (copied/updated) - Consulted for elevated [...] - Fat pad : negative Cytogenetic studies ([id number] from 04/08/2018) on bone marrow aspirate done at [facility] in [place], [place] reportedly show the following FISH results: FISH RESULTS: Summary of FISH results: Gain of 1q Absent FGFR3/IGH rearrangement t(4;14) Absent CCND1/IGH rearrangement t(11;14) Present Deletion 13q, loss of 13 Absent IGH/MAF rearrangement t(14;16) Absent IGH/MAFB rearrangement t(14;20) Absent TP53 Deletion (17p) Absent FISH RESULTS: nuc idris(CDKN2C,CKS1B) x2[100] nuc idris(BXOD3b5,IGHx3~4) [87/100] nuc idris(SJIQ5l7,IGHx4)(CCND1 con IGHx2)[61/100]/ (CCNDx2,IGHx3)(CCND1 con IGHx1)[16/100]/ (CCND1,IGH) x3(CCND1 con IGHx2) [12/100] nuc idris(L70X694/D13S25,13qter)x2 [100] nuc idris(IGHx3~4,MAFBx2)[88/100] nuc idris(IGHx3~4,MAFx2)[84/100] nuc idris(TP53,D17Z1)x2[100] [...] the International Myeloma Working Group and the [facility]. The other IGH translocation probes showed [...] EXAM ======= A&O in NAD VS Temperature: 98 F [36.7 C] (10/24/2023 13:08) Blood Pressure: 133/73 (10/24/2023 13:08) Pulse: 93 (10/24/2023 13:08) Respiration: 20 (10/24/2023 13:08) Pain: 0 (10/24/2023 13:08) Pulse Oximetry: 95% (10/24/2023 13:08)Weight-Last 3: Measurement DT WEIGHT 10/24/2023 13:08 216(97.98)[35*] 10/17/2023 13:14 214.4(97.25)[35*] 09/26/2023 13:19 211(95.71)[34*] ECO PERRLA, Sclera anicteric OC/OP: No evidence of mass, mucositis or thrush Neck: No appreciable LAD or mass Chest: HRR, LS CTA. he is SOB working to ambulate the clinic Abd: soft n/t BS +x4 No appreciable edema in the extremities Hematoma on the right forearm deep purple, flat, no swelling in the elbow joint. No t warm no drainage LABS Today's Labs: GLUCOSE: 240 H UREA NITROGEN: 31 H CREATININE: 1.7 H CREATININE EGFR (CKD-EPI): 41 L SODIUM: 140 POTASSIUM: 3.7 CHLORIDE: 106 CO2: 22 CALCIUM: 9.0 URIC ACID: 8.0 H MAGNESIUM: 2.0 TSH: 0.87 ANION GAP: 12 PROTEIN,TOTAL: 6.4 ALBUMIN: 4.1 BILIRUBIN,TOTAL: 0.6 ALKALINE PHOSPHATASE(37C): 115 SGOT(37C): 20 SGPT(37C): 31 LD,TOTAL(37C P-L): 115 L WBC: 3.26 L SEGS: 63.3 LYMPHS: 19.3 MONOCYTES: 15.6 H EOSINO: 0.3 BASO: 0.3 NEUTROPHIL, ABSOLUTE: 2.06 EOSINO, ABSOLUTE: 0.01 BASO, ABSOLUTE: 0.01 MONOCYTE, ALTERNATE ABS: 0.51 LYMPHS, ALTERNATE ABS: 0.63 L I.2 IG,ABSOLUTE: 0.04 RBC: 3.67 L HGB: 11.8 L HCT: 36.3 L MCV: 98.9 MCH: 32.2 MCHC: 32.5 RDW: 15.9 H PLT: 106 L MPV: 10.6 H Discussed today Oncology imaging ======= 05/07/23 PET [...] his REMS survey -Provider complete REMS survey: [id number] - [place] will continue 81mg ASA not a fan of [facility] and [facility] and [facility] equidistant he prefers [facility] as then he can go see [place]. he was interested in moving to every-other month labs and PharmD eval alerting with STE[facility] visits and labs in [facility] as this is cycle 54 of maintenance revlimid for IgA myeloma today. therefor placed ordered for RTC Phone and will tag PharmD Ever to this notation. happy to see him back for alternating cycles. 2. Renal insufficiency: creatinine variable-at 1.7 today. [...] managed with OTC cream trend 7. SOB-progressive- loaiza Pulm eval on 11/02/23 8. Eccomoysis-right forarm-healing no drainage, skin sheering or eryteham. Continue to monitor 45 min spent in review, direct care, coordination and documentation /es/ JANE SALGADO, COPY READER CLINICAL NURSE SPECIALIST Signed: 10/24/2023 16:14 Receipt Acknowledged By: 10/25/2023 07:41 /es/ FERNANDA FITZGERALD PharmD, BCACP 10/25/2023 ADDENDUM STATUS: COMPLETED ELP/IMMFIX,SERUM PANEL SERUM SP LB #[id number] Collection time: Oct 24, 2023@12:12 Test Name Result Units Range --------- ------ ----- ----- .INTERPRETATION MONOCLONAL .IDENTIFICATION 1 IgA lambda .ALBUMIN FRACTION 4.01 g/dL 3.66 - 4.78 .ALPHA 1 FRACTION 0.23 g/dL 0.14 - 0.38 .ALPHA 2 FRACTION 0.73 g/dL 0.50 - 0.90 .BETA 1 FRACTION 0.42 g/dL 0.33 - 0.55 .BETA 2 FRACTION 0.31 g/dL 0.20 - 0.52 .GAMMA FRACTION 0.29 L g/dL 0.58 - 1.72 .TOTAL PROTEIN 6.0 g/dL 6.0 - 8.3 Comments: Peak(s) too small to quantitate. IM FIX ADDED - Band(s) present. See Identification in report. Bands remain too small to quantify /es/ CHINTAN RAGSDALE, MSN, COPY READER COPY READER Signed: 10/25/2023 13:59 TRISH MCCORMICK [facility] Oct 24, 2023 03:37 PM HEMATOLOGY AND ONC OLOGY ATTENDING NOTE: LOCAL TITLE: HEME/ONC CLINIC NOTE STANDARD TITLE: HEMATOLOGY AND ONCOLOGY ATTENDING NOTE DATE OF NOTE: OCT 24, 2023@15:37 ENTRY DATE: OCT 24, 2023@15:37:05 AUTHOR: JANE SALGADO EXP COSIGNER: URGENCY: STATUS: [...] maintenance Rev/Dex in 08/2019 Reports today for atdwhn-gz-rvri his last revlimid today TODAY Feeling back at his baseline No LOAIZA to report Denies vision changes, falls, gait [...] SOB and is adherent to his inhaler utilization-he is looking forward to Pulm eval on 11/01 Denies vomiting/nausea. Denies changes to his baseline bowel or bladder pattern. No reports of bleeding. Bruises easily but this is not new. Has a large fresh hematoma on his right arm...scrapped it against the wall Denies bone or joint pain. Denies the presence of LE edema or calf pain. 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 Denies fever, chills, night sweats, unplanned wt. loss. Continues with his ASA, lenolidimide, decadron, mag oxide, KPhos (1 packet), B12 and prn nystatin ordered through Hem/Onc without issue. PCP tagged me re should be on antiviral acyclovir prophy and this is not indicated in single agent revlimid but appreciate the ask. HEM/ONC HISTORY (copied/updated) - Consulted for elevated [...] - Fat pad : negative Cytogenetic studies ([id number] from 04/08/2018) on bone marrow aspirate done at [facility] in [place], [place] reportedly show the following FISH results: FISH RESULTS: Summary of FISH results: Gain of 1q Absent FGFR3/IGH rearrangement t(4;14) Absent CCND1/IGH rearrangement t(11;14) Present Deletion 13q, loss of 13 Absent IGH/MAF rearrangement t(14;16) Absent IGH/MAFB rearrangement t(14;20) Absent TP53 Deletion (17p) Absent FISH RESULTS: nuc idris(CDKN2C,CKS1B) x2[100] nuc idris(PYZD2d6,IGHx3~4) [87/100] nuc idris(QOJK4i0,IGHx4)(CCND1 con IGHx2)[61/100]/ (CCNDx2,IGHx3)(CCND1 con IGHx1)[16/100]/ (CCND1,IGH) x3(CCND1 con IGHx2) [12/100] nuc idris(C50O145/D13S25,13qter)x2 [100] nuc idris(IGHx3~4,MAFBx2)[88/100] nuc idris(IGHx3~4,MAFx2)[84/100] nuc idris(TP53,D17Z1)x2[100] [...] the International Myeloma Working Group and the [facility]. The other IGH translocation probes showed [...] EXAM ======= A&O in NAD VS Temperature: 98 F [36.7 C] (10/24/2023 13:08) Blood Pressure: 133/73 (10/24/2023 13:08) Pulse: 93 (10/24/2023 13:08) Respiration: 20 (10/24/2023 13:08) Pain: 0 (10/24/2023 13:08) Pulse Oximetry: 95% (10/24/2023 13:08)Weight-Last 3: Measurement DT WEIGHT 10/24/2023 13:08 216(97.98)[35*] 10/17/2023 13:14 214.4(97.25)[35*] 09/26/2023 13:19 211(95.71)[34*] ECO PERRLA, Sclera anicteric OC/OP: No evidence of mass, mucositis or thrush Neck: No appreciable LAD or mass Chest: HRR, LS CTA. he is SOB working to ambulate the clinic Abd: soft n/t BS +x4 No appreciable edema in the extremities Hematoma on the right forearm deep purple, flat, no swelling in the elbow joint. No t warm no drainage LABS Today's Labs: GLUCOSE: 240 H UREA NITROGEN: 31 H CREATININE: 1.7 H CREATININE EGFR (CKD-EPI): 41 L SODIUM: 140 POTASSIUM: 3.7 CHLORIDE: 106 CO2: 22 CALCIUM: 9.0 URIC ACID: 8.0 H MAGNESIUM: 2.0 TSH: 0.87 ANION GAP: 12 PROTEIN,TOTAL: 6.4 ALBUMIN: 4.1 BILIRUBIN,TOTAL: 0.6 ALKALINE PHOSPHATASE(37C): 115 SGOT(37C): 20 SGPT(37C): 31 LD,TOTAL(37C P-L): 115 L WBC: 3.26 L SEGS: 63.3 LYMPHS: 19.3 MONOCYTES: 15.6 H EOSINO: 0.3 BASO: 0.3 NEUTROPHIL, ABSOLUTE: 2.06 EOSINO, ABSOLUTE: 0.01 BASO, ABSOLUTE: 0.01 MONOCYTE, ALTERNATE ABS: 0.51 LYMPHS, ALTERNATE ABS: 0.63 L I.2 IG,ABSOLUTE: 0.04 RBC: 3.67 L HGB: 11.8 L HCT: 36.3 L MCV: 98.9 MCH: 32.2 MCHC: 32.5 RDW: 15.9 H PLT: 106 L MPV: 10.6 H Discussed today Oncology imaging ======= 05/07/23 PET [...] his REMS survey -Provider complete REMS survey: [id number] - [place] will continue 81mg ASA [place] not a fan of [facility] and [facility] and [facility] equidistant he prefers [facility] as then he can go see his [place]. he was interested in moving to every-other month labs and PharmD eval alerting with [facility]IE visits and labs in [facility] as this is cycle 54 of maintenance revlimid for IgA myeloma today. therefor placed ordered for RTC Phone and will tag Keerthi Fitzgerald to this notation. happy to see him back for alternating cycles. 2. Renal insufficiency: creatinine variable-at 1.7 today. [...] managed with OTC cream trend 7. SOB-progressive- loaiza Pulm eval on 11/02/23 8. Eccomoysis-right forarm-healing no drainage, skin sheering or eryteham. Continue to monitor 45 min spent in review, direct care, coordination and documentation /mindy/ JANE SALGADO APRN CLINICAL NURSE SPECIALIST Signed: 10/24/2023 16:14 Receipt Acknowledged By: 10/25/2023 07:41 /es/ FERNANDA FITZGERALD PharmD, RIN 10/25/2023 ADDENDUM STATUS: COMPLETED ELP/IMMFIX,SERUM PANEL SERUM SP LB #[id number] Collection time: Oct 24, 2023@12:12 Test Name Result Units Range --------- ------ ----- ----- .INTERPRETATION MONOCLONAL .IDENTIFICATION 1 IgA lambda .ALBUMIN FRACTION 4.01 g/dL 3.66 - 4.78 .ALPHA 1 FRACTION 0.23 g/dL 0.14 - 0.38 .ALPHA 2 FRACTION 0.73 g/dL 0.50 - 0.90 .BETA 1 FRACTION 0.42 g/dL 0.33 - 0.55 .BETA 2 FRACTION 0.31 g/dL 0.20 - 0.52 .GAMMA FRACTION 0.29 L g/dL 0.58 - 1.72 .TOTAL PROTEIN 6.0 g/dL 6.0 - 8.3 Comments: Peak(s) too small to quantitate. IM FIX ADDED - Band(s) present. See Identification in report. Bands remain too small to quantify /es/ CHINTAN RAGSDALE, MSN, COPY READER COPY READER Signed: 10/25/2023 13:59 10/26/2023 ADDENDUM STATUS: COMPLETED FLC improved. Will make Jose MACHINE STONECUTTER aware. Collection time: Oct 24, 2023@12:12 Test Name Result Units Range --------- ------ ----- ----- .KAPPA LT CHAIN,FREE 15.4 mg/L 3.3 - 19.4 .LAMBDA LC,FREE 35.4 H mg/L 5.7 - 26.3 .KAPPA/LAMBDA,FREE 0.44 0.26 - 1.65 Collection time: Sep 26, 2023@12:24 Test Name Result Units Range --------- ------ ----- ----- .KAPPA LT CHAIN,FREE 26.4 H mg/L 3.3 - 19.4 .LAMBDA LC,FREE 57.2 H mg/L 5.7 - 26.3 .KAPPA/LAMBDA,FREE 0.46 0.26 - 1.65 /mindy/ [facility] Signed: 10/26/2023 15:13 Receipt Acknowledged By: * AWAITING SIGNATURE * JANE SALGADO CHRISTIE L [place] [facility] Oct 24, 2023 01:08 PM INTERNAL MEDICINE OUTPATIENT NOTE: LOCAL TITLE: MEDICINE CLINIC NURSING NOTE STANDARD TITLE: INTERNAL MEDICINE OUTPATIENT NOTE DATE OF NOTE: OCT 24, 2023@13:08 ENTRY DATE: OCT 24, 2023@13:08:55 AUTHOR: JEREMY CASTILLO EXP COSIGNER: URGENCY: STATUS: COMPLETED TYPE OF VISIT: Appointment Check In Type of appointment: In-person appointment REASON FOR VISIT: rtc ALLERGIES: ATORVASTATIN (Aug 17, 2015) SIMVASTATIN (Aug 17, 2015) VITAL SIGNS: Blood Pressure: 133/73 (10/24/2023 13:08) Pulse: 93 (10/24/2023 13:08) Respiration: 20 (10/24/2023 13:08) Temperature: 98 F [36.7 C] (10/24/2023 13:08) Weight: 216 lb [97.98 kg] (10/24/2023 13:08) Height: 66 in [167.6 cm] (05/07/2023 14:10) BMI: 34.9 O2 Sat: 95% (10/24/2023 13:08) Pain: 0 (10/24/2023 13:08) PAIN SCREEN: Patient is not having significant pain that they wish to discuss with their provider today. MEDICATION Over the Counter/Herbal Medications: The patient states that they take some outside medications and/or herbals. /mindy/ JEREMY CASTILLO LPN, LPN Signed: 10/24/2023 13:09 JEREMY CASTILLO [facility]
--- OUTSIDE RECORDS SUMMARY | 2024-06-08 10:50 | XMS_ITS | Encounter Summary ---
Author Name [facility] [place] [facility] [place] [facility] [place] Address [address] [place] [address] Care Team Providers Care Capability Lead Name Role Phone ALESHIA SHELBY Primary Care [...] Name Patient's Relationship to Policy Colbert [employer] [facility]) MEDICARE ADVANTAGE [facility] ([facility]) Jul 09, 2022 [id number] DARIUS TIJERINA PATIENT [employer] [facility] ([facility]) MEDICARE ADVANTAGE [facility] ([facility]) Jul 09, 2022 [id number] MUNIRA TIJERINAALD PATIENT MEDICA [facility] ([facility]) MEDICARE ADVANTAGE [facility] ([facility]) Jul 09, 2018 [id number] [phone] TIJERINADARIUS PATIENT MEDICARE (WN) MEDICARE (M) PART A Aug 09, 2011 PART A [id number] [phone] DARIUS TIJERINA PATIENT MEDICARE ([facility]) MEDICARE (M) PART B Aug 09, 2011 PART B [id number] [phone] DARIUS TIJERINA PATIENT Selected Encounter This section includes the information on record at [place] for the Encounter. Date/Time Encounter Type Encounter Description Reason Provider Source Nov 02, 2023 02:00 PM OFF/OP CONSLTJ NEW/EST HI 55 PULMONARY/CHEST ICD-10-CM J44.9 Chronic obstructive pulmonary disease, unspecified WRZOS,MO ANN Marlyn Encounter Template Text not used by [place] Assessments - Encounter Diagnoses This section includes the primary and secondary diagnoses documented for the Encounter. Date/Time Primary/Secondary Diagnosis Diagnosis Name Provider Source Jan 04, 2024 11:10 AM PRIMARY Chronic obstructive pulmonary disease, unspecified ALFREDOZOS,MO ANN [facility] Jan 04, 2024 11:10 AM SECONDARY Allergy, unspecified, initial encounter ALFREDOZOSMO [facility] Jan 04, 2024 11:10 AM SECONDARY Dyspnea, unspecified ALFREDOZOS,MO SETH [facility] Plan of Treatment: Future Appointments (+ 6 months) and Future Tests (+/- 45 days) The Plan of Treatment section includes future care activities for the patient [facility] This section includes future appointments and future orders which are active, pending or scheduled. Future Appointments This section includes appointments that were scheduled to occur 6 months from the date of the Encounter, up to a maximum of 20 appointments. The data comes from all [place] treatment facilities. Appointment Date/Time Appointment Type Appointme nt Facility Name November 21, 2023 11:30 AM [place]ORY [place] [facility] Dec 19, 2023 01:00 PM AM[place]ORY - [place]ONE [place] [facility] Dec 19, 2023 02:00 PM [facility] Jan 16, 2024 11:00 AM [place] [place] [facility] Jan 31, 2024 05:50 PM AMBULATORY - REHAB MEDICIN E [facility] Feb 14, 2024 11:00 AM AMB[place]ATORY - NONE [place] [facility] Mar 12, 2024 01:30 PM AM[place]ORY - NONE [place] [facility] Mar 12, 2024 02:30 PM [facility] Mar 28, 2024 09:30 AM AMBULATORY - REHAB MEDICIN [facility] Apr 02, 2024 02:00 PM AM[place]ORY - NONE [place] [facility] Apr 11, 2024 01:00 PM AMBULATORY - NONE [facility] Apr 22, 2024 02:30 PM AMBULATORY - MEDICINE [facility] Lab Results: +/- 30 days of the encounter This section includes the Chemistry and Hematology Lab Results on record with [place] for the patient. Radiology Reports and Pathology Reports are provided separately, in subsequent sections. Lab Results This section contains the Chemistry/Hematology Results that were resulted 30 days before or 30 daysafter the date of the Encounter. Date/Time Source Result Type Result - Unit Interpretation Reference Range Comment Oct 24, 2023 12:12 PM [facility] KAPPA/LAMBDA LC FREE,RATIO Specimen Type: [...] therapy of these disorders. Test Performed by [facility], [facility], [address] [place] [address] Robert Swift M.D., Ph.D., Director of Laboratories , CLIA [id number] Ordering Provider: JANE SALGADO Report Released Date/Time: Sep 26, 2023 01:45 PM Reporting Lab: [facility] [id number] Performing Lab: [address] .KAPPA LT CHAIN,FREE 15.4 mg/L 3.3-19.4 .LAMBDA LC,FREE 35.4 mg/L H 5.7-26.3 .KAPPA/LAMBDA, FREE 0.44 0.26-1.65 Oct 24, 2023 12:12 PM [facility] ELP/IMMFIX,SERUM PANEL Specimen Type: SERUM Comment: Automated Differential Performed Ordering Provider: JANE SALGADO Report Released Date/Time: Sep 26, 2023 01:45 PM Reporting Lab: [facility] [id number] Performing Lab: [facility] [id number] PROTEIN,TOTAL 6.0 g/dL 6.0-8.3 .IDENTIFICATIO N 1 IgA lambda .ALBUMIN FRACTION 4.01 g/dL 3.66-4.78 .ALPHA 1 FRACTION 0.23 g/dL 0.14-0.38 .ALPHA 2 FRACTION 0.73 g/dL 0.50-0.90 .BETA 1 FRACTION 0.42 g/dL 0.33-0.55 .BETA 2 FRACTION 0.31 g/dL 0.20-0.52 .GAMMA FRACTION 0.29 g/dL L 0.58-1.72 .TOTAL PROTEIN 6.0 g/dL 6.0-8.3 .INTERPRETATIO N MONOCLONAL Oct 24, 2023 12:12 PM [facility] TSH W/REFLEX TO FREE T4 Specimen Type: PLASMA Comment: Automated Differential Performed Ordering Provider: JANE SALGADO Report Released Date/Time: Sep 26, 2023 01:45 PM Reporting Lab: [facility] [id number] Performing Lab: [facility] [id number] TSH 0.87 u[IU]/mL 0.35-4.94 Oct 24, 2023 12:12 PM [facility] URIC ACID Specimen Type: PLASMA No comment entered. Ordering Provider: JANE SALGADO Report Released Date/Time: Sep 26, 2023 01:45 PM Reporting Lab: [facility] [id number] Performing Lab: [facility] [phone] URIC ACID 8.0 mg/dL H 3.5-7.2 Oct 24, 2023 12:12 PM [facility] LD,TOTAL Specimen Type: PLASMA No comment entered. Ordering Provider: JANE SALGADO Report Released Date/Time: Sep 26, 2023 01:45 PM Reporting Lab: [facility] [phone] Performing Lab: [facility] [phone] LD,TOTAL 115 U/L L 125-220 Oct 24, 2023 12:12 PM [facility] HEMOGLOBIN A1C Specimen Type: BLOOD Comment: [...] Oct 17, 2023 02:46 PM Reporting Lab: [facility] [phone] Performing Lab: [facility] [phone] HEMOGLOBIN A1C 6.5 H 4.0-6.0 Oct 24, 2023 12:12 PM [facility] COMPREHENSIVE METABOLIC PANEL+MG Specimen Type: PLASMA Comment: Automated Differential Performed Ordering Provider: JANE SALGADO Report Released Date/Time: Sep 26, 2023 01:45 PM Reporting Lab: [facility] [id number] Performing Lab: [facility] [address] CREATININE 1.7 mg/dL H 0.7-1.2 UREA NITROGEN [...] L >60 Oct 24, 2023 12:12 PM [facility] CBC & DIFF Specimen Type: BLOOD Comment: Automated Differential Performed Ordering Provider: JANE SALGADO Report Released Date/Time: Sep 26, 2023 01:45 PM Reporting Lab: [facility] [id number] Performing Lab: [facility] [phone] WBC 3.26 10*3/uL L 4.0-11.0 RBC 3.67 [...] 1.2 ABS IMMATURE GRAN 0.04 10*3/uL 0-0.1 Vital Signs: All taken on the encounter date This section contains inpatient and outpatient Vital Signs collected on the date of the Encounter. Date/Time Temperature Pulse Blood Pressure Respiratory Rate SP02 Pain Height Weight Body Mass Index Source Nov 02, 2023 01:25 PM 97.6 94 138/79 20 97 0 218.1 35 [facility] Radiology Reports: +/- 30 days of the [...] the Encounter. The data comes from all [place] treatment facilities. Date/Time Radiology Report Provider Source Nov 02, 2023 12:11 PM CHEST 2 VIEWS PA A ND LAT: DARIUS TIJERINA [id number] M Exm Date: NOV 02, 2023@12:11 Req Phys: CARLIELIJAH Mirna Pat Loc: [facility] PULOchoa COCHRAN (Req'g Loc) Img Loc: MAIN X-RAY Service: Unknown (Case [id number] COMPLETE) CHEST 2 VIEWS PA AND LAT (RAD Detailed) CPT:43769 Reason for Study: COPD with worsening dyspnea [...] 02, 2023 Date Verified: NOV 02, 2023 Journalism Instructor E-Sig:/ES/RICHA GAONA MD Report: X-RAY EXAM OF chest, PA and lateral INDICATION: Reason for Study: COPD with worsening dyspnea IS NOT under investigation for COVID-19 or [...] Primary Interpreting Staff: RICHA GAONA MD, RADIOLOGIST (Journalism Instructor) /RICHA BOLDEN [facility] Encounter Notes: All associated encounter notes This section contains the clinical notes associated to the Encounter. Date/Time Encounter Note(s) Provider Source Nov 02, 2023 01:31 PM PULMONARY ATTENDING OUTPATIENT NOTE: LOCAL TITLE: PULMONARY CLINIC NOTE STANDARD TITLE: PULMONARY ATTENDING OUTPATIENT NOTE DATE OF NOTE: NOV 02, 2023@13:31 ENTRY DATE: NOV 02, 2023@13:31:43 AUTHOR: MO RICO EXP COSIGNER: URGENCY: STATUS: COMPLETED Reason for consult: COPD management HPI Mr. Tijerina is a 78 yr old man with history of COPD w/ moderate obstruction, multiple myeloma, and CKD who presents for evaluation of COPD. Patient was previously followed in pulmonary clinic in 2019 at which time he was doing well and was switched from triple therapy to LABA/LAMA. Per consult request, despite pulmonary med adherance he as become more SOB, especailly in the last year, with more frequent excerbations. He is challenged to not be SOB walking from the lobby to the clinic. He recognizes his comorbidites but is wondering if pulmonary would have any new suggestions saying 'I would give anything to breathe better, but know this just might be how it is.' He reports significant SOB with limited activity. As well as choronic cough minimally productive. No fevers/chills/sweats. He has restarted mometasone since last pulm visit when it was stopped. He can walk about 20-25 feet, or a 1/2 a flight of stairs. He endorses a little cough, mostly dry. Denies any fevers/chills. His weight has been stable at 210- 220 pounds. He is using albuterol anywhere from zero to eight times a day. Often when more active. It only helps a little bit. He wonders if he has allergies. Sometimes he takes Claritin and it helps a little bit. He had the flu this winter - end of Jul/early Aug. Was in the ED in [place], they wanted to admit him but he went home instead. Says he got two different kinds of medicine then felt back to normal. Reports his breathing has really been about the same for several years. HISTORY Past Medical History: 1. 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 Anemia 3. COPD 4. DM2 - Diabetes Mellitus Type 2 [...] COPD. +Smoker 3. Son - 08/2020 massive [place] Social History: 1. Ex-smoker - quit 2007. 1ppd x 40 yrs 2. ETOH Seldom (2-4 times per month, 1-2 drinks) 3. No illicit drugs 4. Retired. 5. Served in [place] Medications: Outpatient Medications Status 1) ALBUTEROL 90MCG (CFC-F) 200D ORAL INHL INHALE 2 PUFFS ACTIVE BY INHALATION EVERY 4-6 HOURS NEEDED FOR IMMEDIATE RELIEF OF SHORTNESS OF BREATH - SHAKE WELL 2) CYANOCOBALAMIN 1000MCG TAB TAKE ONE TABLET BY MOUTH ACTIVE EVERY DAY 3) DEXAMETHASONE 4MG TAB TAKE FIVE TABLETS BY MOUTH ACTIVE EVERY WEEK WITH FOOD OR MILK. THIS IS A COMPONENT OF A CHEMOTHERAPY REGIMEN. 4) EMPAGLIFLOZIN 25MG TAB TAKE ONE-HALF TABLET BY MOUTH ACTIVE EVERY MORNING FOR DIABETES AND KIDNEY 5) GLIPIZIDE 10MG TAB TAKE ONE TABLET BY MOUTH TWICE A ACTIVE DAY 30 MINUTES BEFORE MEAL FOR DIABETES 6) LENALIDOMIDE 10MG CAP TAKE ONE CAPSULE BY MOUTH EVERY ACTIVE DAY FOR 21 DAYS AND THEN 7 DAYS OFF. SWALLOW WHOLE WITH WATER *FOR DOCUMENTATION ONLY - FILLED BY SPECIALTY PHARMACY* 7) MAGNESIUM OXIDE 420MG TAB TAKE ONE TABLET BY MOUTH ACTIVE TWICE A DAY FOR LOW MAGNESIUM 8) METFORMIN HCL 1000MG TAB TAKE ONE TABLET BY MOUTH ACTIVE EVERY DAY TO DECREASE BLOOD SUGAR 9) MOMETASONE 100MCG/ACTUAT 120D ORAL INHL INHALE 2 ACTIVE PUFFS BY MOUTH TWICE A DAY FOR COPD 10) NYSTATIN 930462 UNT/ML SUSP TAKE 1 TEASPOONFUL BY ACTIVE MOUTH FOUR TIMES A DAY FOR INTERMITTENT THRUSH * MAKE SURE YOU SWISH AND THEN SWALLOW* 11) OLODATEROL/TIOTROP 2.5MCG/ACTUAT 60D INH INHALE 2 ACTIVE PUFFS BY INHALATION EVERY DAY TO PREVENT TROUBLE BREATHING 12) PHOS 250/POTASS 280/NA 160MG PKT PWDR TAKE 1 PACKET ACTIVE BY MOUTH TWICE A DAY *MIX PACKET WITH 2.5 ML OF WATER OR JUICE. STIR WELL AND DRINK PROMPTLY 13) PROCHLORPERAZINE MALEATE 10MG TAB TAKE ONE TABLET BY HOLD MOUTH EVERY 6 HOURS NEEDED FOR NAUSEA AND VOMITING. DO NOT TAKE MORE THAN 40 MG PER DAY. Non-VA Medications Status 1) Non-VA ALBUTEROL/IPRATROPIUM SOLN,INHL 3 ML ALBUTEROL ACTIVE 2.5% SOLUTION INHALATION TWICE A DAY NEEDED 2) Non-VA ASCORBIC ACID TAB EVERY DAY ACTIVE 3) Non-VA ASPIRIN 81MG EC TAB 81 MG MOUTH EVERY DAY ACTIVE 4) Non-VA CHOLECALCIF 25MCG (D3-1,000UNIT) TAB 1000UNIT ACTIVE MOUTH EVERY DAY 5) Non-VA FISH OIL 1000MG (500MG DHA/EPA) CAP 1GM MOUTH ACTIVE TWICE A DAY 6) Non-VA LORATADINE 10MG TAB 10MG MOUTH NEEDED ACTIVE 7) Non-VA MULTIVITAMIN CAP/TAB 1 TABLET MOUTH EVERY DAY ACTIVE Allergies: [facility] ATORVASTATIN [facility] SIMVASTATIN OBJECTIVE Temperature: 97.6 F Blood Pressure: 138/79 Pulse: 94 Respiration: 20 Pain: 0 Pulse Oximetry: 97% Body Mass Index: 35.28 Exam: GEN: No acute distress HEENT: NC/AT, PERRL, anicteric sclerae, MMM CV: RRR, no m/r/g RESP: Speaks in complete sentences, no increased work of breathing. Good air movement in all lung cortes, coarse crackles at bilateral bases, otherwise no wheezes/rhonchi. EXT: 2+ pitting edema NEURO: AOx3, staple fiber washer grossly intact, nonfocal Labs: ----- Reviewed in CPRS, notable for: - abs eos 0.Apr Imaging: -------- CXR 11/02/2023: Impression: Heart size is within normal limits. The pulmonary jamilah are prominent bilaterally. Pulmonary vascular markings are otherwise normal. No focal infiltrates or pleural effusions are seen. Chronic deformitiy associated with the right 6th rib fracture. PET 05/07/2023: Impression: No new FDG avid lesions to suggest disease progression. Mild heterogenous FDG uptake along the right 6th rib, not dramatically changed compared to prior. Pulmonary Function Tests: 11/02/2023: Ref LLN Pre ZScore %Ref FVC L 3.19 2.36 2.71 -0.94 85.1 FEV 1 L 2.43 1.69 1.27 -2.51 52.4 FEV1/FVC% 77 63 47 -3.38 DLCOcSB 22.00 15.98 11.86 -3.00 53.9 Parameter FVC FEV1 FEV1/FVC DLCO_SB 03/26/2019 3.28 1.63 50 12.59 11/02/2023 2.71 1.27 47 10.80 ASSESSMENT/PLAN 78 yr old man with history of COPD w/ moderate obstruction, multiple myeloma, and CKD who presents for evaluation of COPD. # Dyspnea Multifactorial. His PFTs are worse than in 2019, but I'm not sure this explains his symptomotology. He has evidence of volume overload today, no TTE on record at the [facility]. BMI is 35, and while weight is stable over past several years, even small amount of weight loss would improve his ability to be active. There is likely a very significant component of deconditioning. - Pulmonary rehab - Recommend PCP consider cardiac eval with TTE, possible diuretic trial if agree with volume status - Recommend referral to [facility] # COPD with moderate obstruction Very limited functional status. - Continue current triple therapy. - Start cetirizine for allergies - Target dyspnea as above. Follow-up yasmine Rico MD Staff Physician Pulmonary and Critical Care Total time today, including personal review of interim medical records, imaging/test results, clinic visit, documentation, and orders: 55 minutes. /mindy/ MO RICO ATTENDING PHYSICIAN Signed: 01/04/2024 11:10 MO RICO [facility] Nov 02, 2023 01:27 PM INTERNAL MEDICINE OUTPATIENT NOTE: LOCAL TITLE: MEDICINE CLINIC NURSING NOTE STANDARD TITLE: INTERNAL MEDICINE OUTPATIENT NOTE DATE OF NOTE: NOV 02, 2023@13:27 ENTRY DATE: NOV 02, 2023@13:27:42 AUTHOR: DENVER HICKEY COSIGNER: URGENCY: STATUS: COMPLETED TYPE OF VISIT: Appointment Check In Type of appointment: In-person appointment REASON FOR VISIT: pulmonary visit ALLERGIES: ATORVASTATIN (Aug 17, 2015) SIMVASTATIN (Aug 17, 2015) VITAL SIGNS: Blood Pressure: 138/79 (11/02/2023 13:25) Pulse: 94 (11/02/2023 13:25) Respiration: 20 (11/02/2023 13:25) Temperature: 97.6 F [36.4 C] (11/02/2023 13:25) Weight: 218.1 lb [98.93 kg] (11/02/2023 13:25) Height: 66 in [167.6 cm] (05/07/2023 14:10) BMI: 35.3 O2 Sat: 97% (11/02/2023 13:25) Pain: 0 (11/02/2023 13:25) PAIN SCREEN: Patient is not having significant pain that they wish to discuss with their provider today. MEDICATION Over the Counter/Herbal Medications: The patient states that they take some outside medications and/or herbals. /mindy/ DENVER HICKEY LPN LICENSED PRACTICAL NURSE Signed: 11/02/2023 13:28 DENVER HICKEY [facility]
--- NOTE | 2024-06-08 10:51 | ED.GENADULT ---
HPI - General Adult General Chief complaint: Shortness of Breath/Dyspnea Stated complaint: has copd, hard to breath Time Seen by Provider: 06/08/24 10:39 Source: patient Mode of arrival: ambulatory Limitations: no limitations History of Present Illness HPI narrative: 78-year-old male presenting today with shortness of breath for 4 days. Patient has an increased cough that is sometimes productive. He denies any fevers. Appetite is slightly down. Cough does wake him up at night. Patient does have a history of COPD diabetes of multiple myeloma. He does use an albuterol inhaler at home which has not been helping. Related Data Home Medications ?Medication ?Instructions ?Recorded ?Confirmed albuterol sulfate 90 mcg/actuation 2 puff inhalation Q4-6H PRN 07/20/23 08/20/23 aerosol inhaler ascorbic acid (vitamin C) 500 mg 500 mg PO DAILY 07/20/23 08/20/23 capsule aspirin 81 mg tablet,delayed 81 mg PO QDAY 07/20/23 08/20/23 release budesonide-formoterol HFA 160 2 puff inhalation BID 07/20/23 08/20/23 mcg-4.5 mcg/actuation aerosol inhaler cholecalciferol (vitamin D3) 25 25 mcg PO QDAY 07/20/23 08/20/23 mcg (1,000 unit) capsule cyclobenzaprine 10 mg tablet 10 mg PO TID 07/20/23 08/20/23 dexamethasone 4 mg tablet 4 mg PO QDAY 07/20/23 08/20/23 diclofenac sodium 1 % topical gel 4 g topical QID 07/20/23 08/20/23 (Aleve (diclofenac)) lenalidomide 10 mg capsule 10 mg PO QDAY 07/20/23 08/20/23 loratadine 10 mg tablet (Allergy 10 mg PO QDAY 07/20/23 08/20/23 Relief (loratadine)) metformin 1,000 mg tablet 1,000 mg PO BID 07/20/23 08/20/23 omega 8-ybt-jgm-fish oil 1,000 mg 1 cap PO QDAY 07/20/23 08/20/23 (120 mg-180 mg) capsule (Fish Oil) prochlorperazine maleate 10 mg 10 mg PO Q6H PRN 07/20/23 08/20/23 tablet tiotropium bromide 18 mcg capsule 1 cap inhalation QDAY 07/20/23 08/20/23 with inhalation device Previous Rx's ?Medication ?Instructions ?Recorded albuterol sulfate 90 mcg/actuation 2 inh inhalation Q4H PRN shortness 08/11/23 aerosol inhaler of breath or wheezing #8.5 grams prednisone 20 mg tablet 40 mg (2 x 20 mg) PO DAILY 5 days 08/11/23 #10 tabs azithromycin 250 mg tablet 500 mg PO DIRECTED #6 tabs 06/08/24 ipratropium 0.5 mg-albuterol 3 mg 3 ml inhalation QID PRN #90 mL 06/08/24 (2.5 mg base)/3 mL nebulization soln prednisone 20 mg tablet 20 mg PO DIRECTED 9 days #18 06/08/24 tabs Allergies Allergy/AdvReac Type Severity Reaction Status Date / Time No Known Drug Allergies Allergy Verified 08/20/23 13:17 Review of Systems Status of ROS: Reports: 10 or more systems reviewed and unremarkable except as noted in History and below [facility] Medical History Productive cough ?R05.8 - Other specified cough (ICD-10) Family History Son Myocardial infarction Social History Smoking Status: Never smoker Do you use any of these nicotine containing products: None How often do you have a drink containing alcohol: never How often do you have six or more drinks on one occasion: Never AUDIT-C Alcohol total score: 0 Non-prescribed substance use: denies use service: No Exam Narrative: Exam Narrative: Overweight, well-developed patient in no acute distress. Slightly tachypneic. Alert and oriented. Answers questions appropriately. Mood and affect are appropriate. Thoughts are goal oriented and rational. No tangential or magical thinking noted. Patient cannot complete a sentence without needing to catch his breath. HEENT: Normocephalic atraumatic. Pupils are equally round reactive to light. Extraocular muscles are intact. Conjunctivae are moist without any icterus noted. Moist mucous membranes. Cardiovascular: Heart is regular rate and rhythm S1 and S2 are present without any murmurs. Lungs: Diffuse wheezing throughout both lungs. Abdomen: Soft and nontender nondistended with normal bowel sounds. Protuberant. Extremities: Bilateral lower extremities are without edema. Skin: Well perfused. Const: Vital Signs, click to edit/add: Vital Signs - 24 hr 06/08/24 10:17 06/08/24 10:42 Temperature 98.3 F Pulse Rate [Pulse Oximeter] 114 H Respiratory Rate 22 Blood Pressure [Ri t Upper Arm] 122/79 Pulse Oximetry 92 92 Oxygen Delivery Me thod Room Air Course Course ED Course: Patient was given a DuoNeb and oral prednisone. Blood work was unremarkable aside from a slightly elevated creatinine and CRP. Patient does have mild pancytopenia which does not appear to be new. Chest x-ray did not show any acute infiltrates. Triple swab was negative. Re-examination reveals that his wheezing has subsided and he feels significantly better. Vital Signs Vital signs: Initial Vital Signs Respiratory Effort Normal, Spontaneous, Non-Labored 06/08/24 10:16 Respiratory Depth Normal 06/08/24 10:16 Respiratory Pattern Normal 06/08/24 10:16 Vital Signs Temperature 98.3 F 06/08/24 10:17 Pulse Rate 114 H 06/08/24 10:17 Respiratory Rate 22 06/08/24 10:17 Blood Pressure 122/79 06/08/24 10:17 Pulse Oximetry 92 06/08/24 10:17 Oxygen Delivery Method Room Air 06/08/24 10:17 Temperature 98.3 F 06/08/24 10:17 Pulse Rate 114 H 06/08/24 10:17 Respiratory Rate 22 06/08/24 10:17 Blood Pressure 122/79 06/08/24 10:17 Pulse Oximetry 92 06/08/24 10:42 Oxygen Delivery Method Room Air 06/08/24 10:17 Medications Administered Medications: Discontinued Medications Generic Name Dose Route Start Last Admin Trade Name Freq PRN Reason Stop Dose Admin Albuterol/Ipratropium 1 neb 06/08/24 10:42 06/08/24 10:49 Iprat-Albut 0.5-2.5 Mg/3 Ml Neb IH 06/08/24 10:43 1 neb ONCE ONE Administration Prednisone 50 mg 06/08/24 10:42 06/08/24 10:49 Prednisone 10 Mg Tablet PO 06/08/24 10:43 50 mg ONCE ONE Administration Medical Decision Making MDM Narrative Medical decision making narrative: 78-year-old male with an acute COPD exacerbation. Will send the patient home with a prednisone taper, DuoNebs and azithromycin. Lab Data Lab results reviewed: Yes I reviewed the patient's lab results Labs: Lab Results 06/08/24 06/08/24 Range/Units 10:29 10:53 WBC 4.45 L (4.50-11.00) K/uL RBC 4.10 L (4.30-5.90) m/uL Hgb 12.9 L (13.5-17.5) gm/dL Hct 39.9 (37.0-53.0) % MCV 97 (80-100) fL MCH 32 (26-34) pg MCHC 32 (32-36) gm/dL RDW Coeff of Shantell 14.8 (11.5-15.5) % Plt Count 123 L (140-440) K/uL Neut % (Auto) 65.2 (42.0-72.0) % Lymph % (Auto) 13.5 L (20-44) % Saunders % (Auto) 11.9 H (0.0-11.0) % Eos % (Auto) 7.9 H (0.0-7.0) % Baso % (Auto) 0.4 (0.0-3.0) % Neut # (Auto) 2.90 (1.7-7.0) K/uL Lymph # (Auto) 0.60 L (0.90-2.90) K/uL Saunders # (Auto) 0.50 (0.00-0.90) K/UL Eos # (Auto) 0.40 (0.00-0.50) K/uL Baso # (Auto) 0.00 (0.00-0.30) K/uL Abs Immat Gran (auto) 0.00 (0.00-0.30) K/uL Imm/Tot Granulo (auto) 1.1 % Sodium 137 (135-149) mmol/L Potassium 4.1 (3.6-5.1) mmol/L Chloride 109 (96-114) mmol/L Carbon Dioxide 18 L (20-32) mmol/L Anion Gap 10 (7-15) mEq/L BUN 23 (7-30) mg/dL Creatinine 1.7 H (0.5-1.5) mg/dL Estimated GFR 41 ml/min Glucose 131 H (60-115) mg/dL Calcium 9.4 (8.4-10.6) mg/dL C-Reactive Protein 2.6 H (0.5-1.0) mg/dL SARS-CoV-2 (PCR) Negative SARS-CoV-2 (Negative) Influenza Type A (PCR) Negative PCR FLU A (Negative) Influenza Type B (PCR) Negative PCR FLU B (Negative) RSV (PCR) Negative PCR RSV (Negative) Imaging Data Chest x-ray: Attestation: I have reviewed the pertinent imaging results. Radiologist's impression: INDICATION: Shortness of breath Comparison 08/16/2023 TECHNIQUE: Two view chest. FINDINGS: The lungs are clear. The heart, mediastinum and pulmonary vessels are of normal size. Left basilar probable atelectasis scarring. Rib deformity along the right lateral chest. IMPRESSION: Negative chest. Discharge Plan Discharge Clinical Impression: Acute exacerbation of chronic obstructive pulmonary disease Patient Disposition: Home, Self-Care Condition: Improved Instructions: COPD (Chronic Obstructive Pulmonary Disease) (ED) Additional Instructions: Take all steroid (Prednisone) as prescribed- can start this tomorrow. Take all antibiotic (Azithromycin) as prescribed. Use DuoNebs as needed. Follow-up with your primary care provider in the next 2-3 days. Return to the emergency department if you feel like you are getting worse instead of better. Your kidney function was also slightly elevated today. This can be due to dehydration. Recommend increasing your daily fluid intake and having your kidney function repeated when you follow-up with your primary care provider. Prescriptions: New ipratropium-albuterol 0.5 mg-3 mg(2.5 mg base)/3 mL solution for nebulization 3 ml inhalation QID PRNQty: 90 0RF azithromycin 250 mg tablet 500 mg PO DIRECTED Qty: 6 0RF Taper: Z-JESSICA 500 mg Q24H for 1 Day and 0 Hour 250 mg Q24H for 4 Days and 0 Hour Rx Instructions: For 250 mg dose pack: take 500 mg today (day 1), then 250 mg for 4 days (days 2-5) prednisone 20 mg tablet 20 mg PO DIRECTED 9 Days Qty: 18 0RF Rx Instructions: 60 mg p.o. daily for 3 days (3 tablets daily on day 1-3), 40 mg daily for 3 days (2 tablets daily on days 4-6), 20 mg daily for 3 days (1 tablet daily on days 7-9). No Action albuterol sulfate 90 mcg/actuation HFA aerosol inhaler 2 puff inhalation Q4-6H PRN ascorbic acid (vitamin C) 500 mg capsule 500 mg PO DAILY aspirin 81 mg tablet,delayed release (DR/EC) 81 mg PO QDAY budesonide-formoterol 160-4.5 mcg/actuation HFA aerosol inhaler 2 puff inhalation BID cholecalciferol (vitamin D3) 25 mcg (1,000 unit) capsule 25 mcg PO QDAY cyclobenzaprine 10 mg tablet 10 mg PO TID dexamethasone 4 mg tablet 4 mg PO QDAY Rx Instructions: Take 10 tablets every week for 3 weeks. diclofenac sodium [Aleve (diclofenac)] 1 % gel 4 g topical QID Rx Instructions: apply to single knee, ankle, foot; for foot includes sole/toes/top of foot omega 5-kmx-dte-fish oil [Fish Oil] 1,000 mg (120 mg-180 mg) capsule 1 cap PO QDAY lenalidomide 10 mg capsule 10 mg PO QDAY Rx Instructions: swallow whole with glass of water; do not open, crush, chew , break, or dissolve 1 capsule daily for 14 days. loratadine [Allergy Relief (loratadine)] 10 mg tablet 10 mg PO QDAY metformin 1,000 mg tablet 1,000 mg PO BID tiotropium bromide 18 mcg capsule, w/inhalation device 1 cap inhalation QDAY Rx Instructions: puncture 1 cap using device; one dose = 2 inhalations prochlorperazine maleate 10 mg tablet 10 mg PO Q6H PRN albuterol sulfate 90 mcg/actuation HFA aerosol inhaler 2 inh inhalation Q4H PRN (Reason: shortness of breath or wheezing) Qty: 8.5 0RF prednisone 20 mg tablet 40 mg PO DAILY 5 Days Qty: 10 0RF Follow Up/Referrals: Heather Ware, MEDIA PRODUCTION OPERATOR, ALUMINUM WELDER [Primary Care Provider] - Stand Alone [facility] Info Instructions
--- OUTSIDE RECORDS SUMMARY | 2024-06-08 10:51 | XMS_ITS | Encounter Summary ---
Author Name [facility] [place] Address [address] [place] [id number] Care Team Providers Care Inclusion Paraeducator Name Role Phone ALESHIA SHELBY Primary Care [...] Name Patient's Relationship to Policy Colbert HUMANA [facility] ([facility]) MEDICARE ADVANTAGE [facility] ([facility]) Jul 09, 2022 [id number] [phone] [id number] DARIUS TIJERINA PATIENT HUMANA [facility] ([facility]) MEDICARE ADVANTAGE [facility] ([facility]) Jul 09, 2022 [id number] [phone] 2 DARIUS TIJERINA PATIENT MEDICA [facility] ([facility]) MEDICARE ADVANTAGE [facility] ([facility]) Jul 09, 2018 [id number] [phone] DARIUS TIJERINA PATIENT MEDICARE (WN) MEDICARE (M) PART A Aug 09, 2011 PART A [id number] [phone] DARIUS TIJERINA PATIENT MEDICARE ([facility]) MEDICARE (M) PART B Aug 09, 2011 PART B [id number] [phone] DARIUS TIJERINA PATIENT Selected Encounter This section includes the information on record at [place] for the Encounter. Date/Time Encounter Type Encounter Description Reason Provider Source Mar 28, 2024 09:30 AM PRO PHONE CALL 11-20 MIN TELEPHONE/REHAB AND SUPPORT ICD-10-CM C90.00 Multiple myeloma not having achieved remission RODOLFO CHACON [facility] Encounter Template Text not used by [place] Assessments - Encounter Diagnoses This section includes the primary and secondary diagnoses documented for the Encounter. Date/Time Primary/Secondary Diagnosis Diagnosis Name Provider Source Mar 28, 2024 09:30 AM PRIMARY Multiple myeloma not having achieved remission RODOLFO CHACON [facility] Plan of Treatment: Future Appointments (+ 6 months) and Future Tests (+/- 45 days) The Plan of Treatment section includes future care activities for the patient from all [place] treatmentfacilities. This section includes future appointments and future orders which are active, pending or scheduled. Future Appointments This section includes appointments that were scheduled to occur 6 months from the date of the Encounter, up to a maximum of 20 appointments. The data comes from all [place] treatment facilities. Appointment Date/Time Appointment Type Appointme nt Facility Name Apr 02, 2024 02:00 PM AMBULATORY - NONE [facility] Apr 11, 2024 01:00 PM AMBULATORY - NONE [facility] Apr 22, 2024 02:30 PM [facility]BULATORY - MEDICINE [facility] ([facility] May 12, 2024 12:45 PM AMBULATORY - NONE [facility] Jun 12, 2024 12:30 PM AMBULATORY - NONE [facility] Jun 12, 2024 01:30 PM AMBULATORY - MEDICINE [facility] Lab Results: +/- 30 days of the encounter This section includes the Chemistry and Hematology Lab Results on record with [place] for the patient. Radiology Reports and Pathology Reports are provided separately, in subsequent sections. Lab Results This section contains the Chemistry/Hematology Results that were resulted 30 days before or 30 daysafter the date of the Encounter. Date/Time Source Result Type Result - Unit Interpretation Reference Range Comment Mar 12, 2024 01:12 PM [facility] KAPPA/LAMBDA LC FREE,RATIO Specimen Type: SERUM [...] therapy of these disorders. Test Performed by [facility], [facility], [address] [place] [address] Robert Swift M.D., Ph.D., Director of Laboratories , CLIA [id number] Ordering Provider: JANE SALGADO Report Released Date/Time: Dec 19, 2023 02:29 PM Reporting Lab: [facility] [id number] Performing Lab: [address] .KAPPA LT CHAIN,FREE 15.5 mg/L 3.3-19.4 .LAMBDA LC,FREE 31.8 mg/L H 5.7-26.3 .KAPPA/LAMBDA, FREE 0.49 0.26-1.65 Mar 12, 2024 01:12 PM [facility] ELP/IMMFIX,SERUM PANEL Specimen Type: SERUM Comment: Peak(s) too small to quantitate. Ordering Provider: JANE SALGADO Report Released Date/Time: Dec 19, 2023 02:29 PM Reporting Lab: [facility] [id number] Performing Lab: [facility] [address] PROTEIN,TOTAL 6.3 g/dL L 6.4-8.3 .IDENTIFICATIO N 1 IgA lambda .ALBUMIN FRACTION 4.18 g/dL 3.66-4.78 .ALPHA 1 FRACTION 0.28 g/dL 0.14-0.38 .ALPHA 2 FRACTION 0.81 g/dL 0.50-0.90 .BETA 1 FRACTION 0.40 g/dL 0.33-0.55 .BETA 2 FRACTION 0.34 g/dL 0.20-0.52 .GAMMA FRACTION 0.30 g/dL L 0.58-1.72 .TOTAL PROTEIN 6.3 g/dL 6.0-8.3 .INTERPRETATIO N MONOCLONAL Mar 12, 2024 01:12 PM [facility] TSH W/REFLEX TO FREE T4 Specimen Type: PLASMA Comment: Automated Differential Performed Ordering Provider: JANE SALGADO Report Released Date/Time: Dec 19, 2023 02:29 PM Reporting Lab: [facility] [id number] Performing Lab: [facility] [id number] TSH 0.79 u[IU]/mL 0.35-4.94 Mar 12, 2024 01:12 PM [facility] URIC ACID Specimen Type: PLASMA No comment entered. Ordering Provider: JANE SALGADO Report Released Date/Time: Dec 19, 2023 02:29 PM Reporting Lab: [facility] [id number] Performing Lab: [facility] [address] URIC ACID 8.2 mg/dL H 3.7-7.7 Mar 12, 2024 01:12 PM [facility] LD,TOTAL Specimen Type: PLASMA No comment entered. Ordering Provider: JANE SALGADO Report Released Date/Time: Dec 19, 2023 02:29 PM Reporting Lab: [facility] [address] Performing Lab: [facility] [phone] LD,TOTAL 133 U/L 125-220 Mar 12, 2024 01:12 PM [facility] COMPREHENSIVE METABOLIC PANEL+MG Specimen Type: PLASMA Comment: Automated Differential Performed Ordering Provider: JANE SALGADO Report Released Date/Time: Dec 19, 2023 02:29 PM Reporting Lab: [facility] [address] Performing Lab: [facility] [address] CREATININE 1.7 mg/dL H 0.7-1.2 UREA NITROGEN [...] L >60 Mar 12, 2024 01:12 PM [facility] CBC & DIFF Specimen Type: BLOOD Comment: Automated Differential Performed Ordering Provider: JANE SALGADO Report Released Date/Time: Dec 19, 2023 02:29 PM Reporting Lab: [facility] [address] Performing Lab: [facility] [address] WBC 3.7 L 4.0-11.0 RBC 4.00 L [...] PRO) 1.1 ABS IMMATURE GRAN 0.0 0-0.1 Encounter Notes: All associated encounter notes This section contains the clinical notes associated to the Encounter. Date/Time Encounter Note(s) Provider Source Mar 28, 2024 09:30 AM OCCUPATIONAL THERA PY CONSULT: LOCAL TITLE: OCCUPATIONAL THERAPY CONSULT STANDARD TITLE: OCCUPATIONAL THERAPY CONSULT DATE OF NOTE: MAR 28, 2024@09:30 ENTRY DATE: MAR 28, 2024@09:36:20 AUTHOR: RODOLFO CHACON EXP COSIGNER: URGENCY: STATUS: COMPLETED OCCUPATIONAL THERAPY EQUIPMENT CONSULT Ordering provider: JAYSHREE PHILIPPE Consult request: AE: med alert Diagnosis: Multiple Myeloma not having Achieved Remission(ICD-10-CM C90.00) Encounter: -Phone assessment: 15 min Subjective: Oscar reported having Bradley device in the past and losing it a while ago. He now requests a replacement, if possible. He denies having any falls in the last 12 months. He does have a cane available, but uses it only when vet's back bothers him. Back hasn't bothered oscar for the last 7-8 months. Assessment/recommendations: Annt seen in phone clinic today to discuss adaptive equipment to increase safety and independence. Oscar arrives to clinic alone requesting a replacement for his lost Bradley device which was issued back in 2021. Oscar continues living alone, struggles with COPD and SOB with activity, some balance issues, occasional back pain, and is at risk of falls. Oscar is agreeable that the same, familiar to him device will fully meet his needs; health technical writer reminded to charge device every [address] regular test calls. Oscar is in agreement with the plan and has no further OT needs at this time. Identified the following barriers: -Lives alone -Generalized weakness -ROM deficits -SOB w/ activities -Hx of falls -Hearing deficits Vet will benefit from adaptive equipment to increase safety and functional independence and was provided education on features and benefits of equipment. Annt will benefit from the following adaptive equipment: -Bradley (No landline required, works off [employer], uses wi-fi routers to determine location, water resistant, holds charge for up to 30 days, 29/01 call center triages call to determine if family/friends or 911 should be alerted when button is pressed, two- way communication) Education: Vet indicates readiness to learn, verbalizes understanding, agreement and satisfaction with the treatment plan. Denies further questions. P: No other OT needs at this time. D/C from OT. SHORT TERM GOAL to be met by end of session: 1. [place] will engage in an OT evaluation to improve safety and independence with use of adaptive equipment - /mindy/ RODOLFO CHACON OTR/L OCCUPATIONAL THERAPIST Signed: 03/28/2024 09:52 RODOLFO CHACON [facility]
--- OUTSIDE RECORDS SUMMARY | 2024-06-08 10:51 | XMS_ITS | Encounter Summary ---
Author Name [facility] [place] [facility] [place] Address [address] [place] [address] Care Team Providers Care Boiler Testing Technician Name Role Phone HERON ALESHIA Primary Care Provider Unavailabl e Insurance Providers: [...] Name Patient's Relationship to Policy Colbert HUMANA [facility] ([facility]) MEDICARE ADVANTAGE [facility] ([facility]) Jul 09, 2022 [id number] [phone] DARIUS TIJERINA PATIENT HUMANA [facility] ([facility]) MEDICARE ADVANTAGE [facility] ([facility]) Jul 09, 2022 [id number] DARIUS TIJERINA PATIENT MEDICA [facility] ([facility]) MEDICARE ADVANTAGE [facility] ([facility]) Jul 09, 2018 [id number] [phone] DARIUS TIJERINA PATIENT MEDICARE (WN) MEDICARE (M) PART A Aug 09, 2011 PART A [id number] [phone] DARIUS TIJERINA PATIENT MEDICARE ([facility]) MEDICARE (M) PART B Aug 09, 2011 PART B [id number] [phone] DARIUS TIJERINA PATIENT Selected Encounter This section includes the information on record at [place] for the Encounter. Date/Time Encounter Type Encounter Description Reason Provider Source Apr 11, 2024 01:00 PM MTMS BY PHARM VLADISLAV 15 MIN TELEPHONE/IGNACIA PAYNE ICD-10-CM C90.00 Multiple myeloma not having achieved remission FERNANDA FITZGERALD [facility] Encounter Template Text not used by [place] Assessments - Encounter Diagnoses This section includes the primary and secondary diagnoses documented for the Encounter. Date/Time Primary/Secondary Diagnosis Diagnosis Name Provider Source Apr 11, 2024 01:00 PM PRIMARY Multiple myeloma not having achieved remission FERNANDA FITZGERALD [facility] Plan of Treatment: Future Appointments (+ 6 months) and Future Tests (+/- 45 days) The Plan of Treatment section includes future care activities for the patient from all [place] treatmentfacilities. This section includes future appointments and future orders which are active, pending or scheduled. Future Appointments This section includes appointments that were scheduled to occur 6 months from the date of the Encounter, up to a maximum of 20 appointments. The data comes from all [place] treatment facilities. Appointment Date/Time Appointment Type Appointme nt Facility Name Apr 22, 2024 02:30 PM AMBULATORY - [facility]ICINE [facility] ([facility]) May 12, 2024 12:45 PM AMBULATORY - NONE [facility] Jun 12, 2024 12:30 PM AMBULATORY - NONE [facility] Jun 12, 2024 01:30 PM AMBULATORY - MEDICINE [facility] Vital Signs: All taken on the encounter date This section contains inpatient and outpatient Vital Signs collected on the date of the Encounter. Date/Time Temperature Pulse Blood Pressure Respiratory Rate SP02 Pain Height Weight Body Mass Index Source Apr 11, 2024 02:10 PM 212.4 34 [facility] Encounter Notes: All associated encounter notes This section contains the clinical notes associated to the Encounter. Date/Time Encounter Note(s) Provider Source Apr 11, 2024 01:07 PM PHARMACY NOTE: LOCAL TITLE: PHARMACY PROGRESS NOTE STANDARD TITLE: PHARMACY NOTE DATE OF NOTE: APR 11, 2024@13:07 ENTRY DATE: APR 11, 2024@13:07:28 AUTHOR: FERNANDA FITZGERALD EXP COSIGNER: URGENCY: STATUS: COMPLETED Oncologic Diagnosis: Multiple Myeloma Antineoplastic Regimen: Lenalidomide Oncology Provider: Sharri Garcia First Treatment Date: 05/02/2018 Allergies/ADRs: ATORVASTATIN (Aug 17, 2015) SIMVASTATIN (Aug 17, 2015) TIJERINADARIUS KESSLER is a 78 year old MALE with IgA lambda multiple myeloma who has remained on LENALIDOMIDE therapy since 08/2019. [facility] was contacted for toxicity assessment. Visit was conducted by telephone and consent obtained. Current Regimen: Lenalidomide 10mg by mouth daily on days 1-21, then 7 days off of a 28-day cycle Dexamethasone 20mg (5x 4mg tablet) by mouth weekly with food or milk Supportive Care Medications: - Prochlorperazine as needed for nausea/vomiting - Aspirin 81mg daily for VTE prophylaxis - Magnesium oxide scheduled for hypomagnesemia - [id number] scheduled for hypophosphatemia Interval History: reports that things are going okay. He continues to take Lenalidomide 10mg by mouth daily on days 1-21 of a 28-day cycle. He reports taking his last dose of this cycle this morning. He denies any issues with nausea/vomiting, constipation/diarrhea, changes to appetite, unintentional weight loss or night sweats. He has not had any recent medication changes or ED visits/hospitalizations. Continues to take low dose aspirin, magnesium oxide and [id number] without issue. He requests refills of albuterol and tiotropium/olodaterol inhalers. Next cycle is due to start on 04/19/24. Teratogenic Medication Assessment (male): 1. Have you reminded patient not to share their medication? Yes 2. Have you reminded patient not to donate blood or sperm? Yes 3. Is patient sexually active with a woman who could become ? No 4. Have you reminded patient to use latex condoms? N/A 5. Average daily dose: 10mg daily 6. Total day supply: 28 days Treatment History (copied/updated): ======= - Consulted for elevated IgA monoclonal protein [...] - Fat pad : negative Cytogenetic studies [id number] from 04/08/2018) on bone marrow aspirate done at [facility] in [place], [place] reportedly show the following FISH results: FISH RESULTS: Summary of FISH results: Gain of 1q Absent FGFR3/IGH rearrangement t(4;14) Absent CCND1/IGH rearrangement t(11;14) Present Deletion 13q, loss of 13 Absent IGH/MAF rearrangement t(14;16) Absent IGH/MAFB rearrangement t(14;20) Absent TP53 Deletion (17p) Absent FISH RESULTS: nuc idris(CDKN2C,CKS1B) x2[100] nuc idris(AQLJ1w2,IGHx3~4) [87/100] nuc idris(JFCG5j7,IGHx4)(CCND1 con IGHx2)[61/100]/ (CCNDx2,IGHx3)(CCND1 con IGHx1)[16/100]/ (CCND1,IGH) x3(CCND1 con IGHx2) [12/100] nuc idris([id number]/D13S25,13qter)x2 [100] nuc idris(IGHx3~4,MAFBx2)[88/100] nuc idris(IGHx3~4,MAFx2)[84/100] nuc idris(TP53,D17Z1)x2[100] [...] the [employer] My[employer] and the [facility]. The other IGH translocation probes showed extra [...] weekly for 3 times of each cycle. - 09/25/2019 increased lenalidomide to 15 mg daily for 3 weeks and 1 week off - 10/2019 to present: No monoclonal spike detected - 12/25/2019 - present: lenalidomide to 10 mg daily for 3 weeks and 1 week off - 06/13/21 to present Monoclonal IgA lambda detected but Peak(s) too small to Quantitate Active Outpatient Medications (excluding Supplies): Outpatient Medications Status 1) ALBUTEROL 90MCG (CFC-F) 200D ORAL INHL INHALE 2 PUFFS ACTIVE BY INHALATION EVERY 4-6 HOURS NEEDED FOR IMMEDIATE RELIEF OF SHORTNESS OF BREATH - SHAKE WELL 2) CETIRIZINE HCL 10MG TAB TAKE ONE TABLET BY MOUTH AT ACTIVE BEDTIME NEEDED FOR ALLERGIES 3) DEXAMETHASONE 4MG TAB TAKE FIVE TABLETS BY MOUTH ONCE ACTIVE WEEKLY WITH FOOD OR MILK. THIS IS A COMPONENT OF A CHEMOTHERAPY REGIMEN. 4) EMPAGLIFLOZIN 25MG TAB TAKE ONE-HALF TABLET BY MOUTH ACTIVE (S) EVERY MORNING FOR DIABETES AND KIDNEY 5) [...] TAB TAKE ONE TABLET BY MOUTH ACTIVE (S) TWICE A DAY FOR LOW MAGNESIUM 8) PHOS 250/POTASS 280/NA 160MG PKT PWDR TAKE 1 PACKET ACTIVE BY MOUTH TWICE A DAY *MIX PACKET WITH 2.5 ML OF WATER OR JUICE. STIR WELL AND DRINK PROMPTLY 9) PROCHLORPERAZINE MALEATE 10MG TAB TAKE ONE TABLET [...] CAP/TAB 1 TABLET MOUTH EVERY DAY ACTIVE No Active Remote Medications for this patient Medications reconciled as appropriate to this encounter. Patient's chart, medications, and laboratory values were reviewed for drug- drug, drug-disease, and drug-food interactions, indications for drug use, identification of adverse drug reactions, and assessment of efficacy and compliance. Labs: ===== Collection DT Specimen Test Name Result Units [...] ABS NEUT 2.2 10x3/uL 2.0 - 7.7 Collection DT Specimen Test Name Result Units Ref Range 03/12/2024 13:12 PLASMA GLUCOSE 220 H mg/dL 70 - 100 03/12/2024 13:12 PLASMA SODIUM 140 mmol/L 136 - 145 03/12/2024 13:12 PLASMA POTASSIUM 4.4 mmol/L 3.5 - 5.1 03/12/2024 13:12 PLASMA CHLORIDE 110 H mmol/L 98 - 107 03/12/2024 13:12 PLASMA CO2 18 L mmol/L 22 - 29 03/12/2024 13:12 PLASMA ANION GAP 12 mmol/L 5 - 15 03/12/2024 13:12 PLASMA UREA NITROGEN 34 H mg/dL 8 - 26 03/12/2024 13:12 PLASMA CREATININE 1.7 H mg/dL 0.7 - 1.2 03/12/2024 13:12 SERUM PROTEIN,TOTAL 6.3 L g/dL 6.4 - 8.3 03/12/2024 13:12 PLASMA ALBUMIN 4.4 g/dL 3.5 - 5.2 03/12/2024 13:12 PLASMA CALCIUM 9.5 mg/dL 8.4 - 10.2 03/12/2024 13:12 PLASMA BILIRUBIN, TOTAL 0.7 mg/dL 0.2 - 1.2 03/12/2024 13:12 PLASMA AST/SGOT 12 U/L 11 - 34 03/12/2024 13:12 PLASMA ALT/SGPT 21 U/L Ref: <=44 03/12/2024 13:12 PLASMA ALKALINE PHOSPHAT 123 U/L 40 - 150 PO4 3.8 (08/29/23) URIC ACID 8.2 H (03/12/24) PSA - NONE FOUND VITALS: ======= 66 in [167.6 cm] (05/07/2023 14:10) 212.4 lb [96.34 kg] (03/12/2024 13:58) 127/72 (03/12/2024 13:58) Review of Systems: Yes No [ ] [ X ] Dermatologic: skin rash, HFSR, alopecia [ ] [ X ] GI: diarrhea/constipation, nausea/vomiting, mucositis, lack of appetite, change in taste, weight loss, abdominal pain [ ] [ X ] BOW MAKER GIFT WRAPPING/Neurology: headache, dizziness, insomnia, neuropathy, tinnitus [ ] [ X ] Cardiovascular: hypertension, edema, palpitation [ ] [ X ] Bruising and/or bleeding [ ] [ X ] Pulm: shortness of breath, dyspnea on exertion [ ] [ X ] Musculoskeletal: myalgia, joint pain [ ] [ X ] General: fatigue, fever/chills, night sweats Compliance Assessment: - Correctly states dosing instructions: yes - Difficulty swallowing pills: no - Missed doses: none reported - Does patient have enough supply until next provider appointment: no, renewed today Indication for Dose Reduction: anticipated tolerance and renal function Antiemetic Risk of Regimen: minimal/low Recommended Monitoring: - CBC: at baseline, then weekly x8, then every 2 weeks for 1 month, then monthly - CMP: at baseline, then monthly - TSH/T4: at baseline, then every 3 months - ECG when clinically indicated. - Monitor for signs and symptoms of infection (if neutropenic), bleeding or bruising, hepatotoxicity, secondary malignancies, thromboembolism (e.g., shortness of breath, chest pain, arm or leg swelling), dermatologic toxicity, tumor lysis syndrome, or hypersensitivity. - Monitor for tumor flare reaction in patients with mantle cell lymphoma, follicular lymphoma, and/or marginal zone lymphoma. Monitor for development of second primary malignancies. Monitor adherence. - Patients who could become : test 10 to 14 days and 24 hours prior to initiating therapy, weekly during the first 4 weeks of treatment, then every 2 to 4 weeks through 4 weeks after therapy discontinued. Assessment/Plan: IgA lambda multiple myeloma - Patient is tolerating treatment with Lenalidomide well at this time without any issues to report. - Last laboratory results completed March 2024 and stable. Will repeat labs in June prior to appointment with Sharri Garcia. - Appropriate to continue Lenalidomide 10mg by mouth daily on days 1-21 of a 28- day cycle along with Dexamethasone 20mg by mouth weekly on days 1, 8, 15 and 22. - REMS survey for both patient and provider completed during this visit. - Authorization number [id number]. Next cycle to start on 04/19/24. - VCM orders signed. Pharmacy notified to fax orders to [facility]. - Alert to JESSIKA Fitzgerald to adjust RTC orders from 05/16 to 05/12 at 12:45pm. - All questions answered to patient's stated satisfaction Medication Refills - Verified refills on file for Albuterol HFA inhaler and assisted with requesting refill for mail out. - Reviewed with [facility] that refill for Tiotropium/Olodaterol inhaler was filled via [facility] and delivery details show that it was delivered to his mailbox earlier today (04/11). Oncology Follow-up Plan: - Next pharmacist follow-up: 05/12 at 12:45pm to be scheduled - Next laboratory evaluation: 06/12 as scheduled - Next provider follow-up: 06/12 with Sharri Garcia as scheduled Time spent with [place]: 20 minutes /mindy/ FERNANDA FITZGERALD PharmD, BCACP Signed: 04/11/2024 13:27 Receipt Acknowledged By: 04/14/2024 07:47 /rahel FITZGERALD Advanced FERNANDA FOOTE [facility]
--- OUTSIDE RECORDS SUMMARY | 2024-06-08 10:51 | XMS_ITS | Encounter Summary ---
Author Name [facility] [place] [facility] [place] Address [address] [place] [id number] Care Team Providers Care Medical Illustrator Name Role Phone HERON ALESHIA Primary Care [...] Name Patient's Relationship to Policy Colbert HUMANA [facility] ([facility]) MEDICARE ADVANTAGE [facility] ([facility]) Jul 09, 2022 [id number] DARIUS TIJERINA PATIENT HUMANA [facility] ([facility]) MEDICARE ADVANTAGE [facility] ([facility]) Jul 09, 2022 [id number] 22 DARIUS TIJERINA PATIENT MEDICA [facility] ([facility]) MEDICARE ADVANTAGE [facility] ([facility]) Jul 09, 2018 [id number] [phone] DARIUS TIJERINA PATIENT MEDICARE ([place]) MEDICARE (M) PART A Aug 09, 2011 PART A [id number] [phone] DARIUS TIJERINA PATIENT MEDICARE ([facility]) MEDICARE (M) PART B Aug 09, 2011 PART B [id number] [phone] DARIUS TIJERINA PATIENT Selected Encounter This section includes the information on record at [place] for the Encounter. Date/Time Encounter Type Encounter Description Reason Provider Source May 12, 2024 12:45 PM MTMS BY PHARM VLADISLAV 15 MIN TELEPHONE/IGNACIA PAYNE ICD-10-CM C90.00 Multiple myeloma not having achieved remission FERNANDA FITZGERALD IHE Encounter Template Text not used by [place] Assessments - Encounter Diagnoses This section includes the primary and secondary diagnoses documented for the Encounter. Date/Time Primary/Secondary Diagnosis Diagnosis Name Provider Source May 12, 2024 12:45 PM PRIMARY Multiple myeloma not having achieved remission FERNANDA FITZGERALD [facility] Plan of Treatment: Future Appointments (+ 6 months) and Future Tests (+/- 45 days) The Plan of Treatment section includes future care activities for the patient from all [place] [facility] This section includes future appointments and future orders which are active, pending or scheduled. Future Appointments This section includes appointments that were scheduled to occur 6 months from the date of the Encounter, up to a maximum of 20 appointments. The data comes from all [place] treatment [facility]. Appointment Date/Time Appointment Type Appointme nt Facility Name Jun 12, 2024 12:30 PM AM[facility]ULATORY - NONE [facility] Jun 12, 2024 01:30 PM [facility] Active, Pending, and Scheduled Orders This section includes a listing of several types of active, pending, and scheduled orders, including clinic medications orders, diagnostic test orders, procedure orders and consult orders; where the start date of the order is 45 days before the date of the Encounter or 45 days after the date of theEncounter. The data comes from all [place] treatment [facility]. Test Date/Time Test Type Test Details Facility Name Jun 11, 2024 12:00 AM Laboratory - Chemistry Order CBC & DIFF BLOOD ONCO [facility] Jun 11, 2024 12:00 AM Laboratory - Chemistry Order COMPREHENSIVE METABOLIC PANEL+MG PLASMA ONCO [facility] Jun 11, 2024 12:00 AM Laboratory - Chemistry Order TOTAL IMMUNOGLOB (IGA,IGG,IGM) PLASMA [facility] Jun 11, 2024 12:00 AM Laboratory - Chemistry Order ELP/IMMFIX,SERUM PANEL SERUM [facility] Jun 11, 2024 12:00 AM Laboratory - Chemistry Order KAPPA/LAMBDA LC FREE,RATIO [facility] Jun 11, 2024 12:00 AM Laboratory - Chemistry Order PHOSPHORUS PLASMA [facility] Jun 11, 2024 12:00 AM Laboratory - Chemistry Order LD,TOTAL PLASMA ONCO [facility] Jun 11, 2024 12:00 AM Laboratory - Chemistry Order URIC ACID PLASMA [facility] Jun 11, 2024 12:00 AM Laboratory - Chemistry Order TSH W/REFLEX TO FREE T4 PLASMA [facility] ([facility]) Jun 11, 2024 12:00 AM Laboratory - Chemistry Order HEMOGLOBIN A1C BLOOD [facility] [place] ([facility]) Jun 11, 2024 12:00 AM Laboratory - Chemistry Order LIPID PANEL,NON-FASTING PLASMA [facility] [place] ([facility]) Jun 11, 2024 12:00 AM Laboratory - Chemistry Order ALBUMIN/CREATININE RATIO URINE URINE [facility] ([facility]) Encounter Notes: All associated encounter notes This section contains the clinical notes associated to the Encounter. Date/Time Encounter Note(s) Provider Source May 12, 2024 12:51 PM PHARMACY NOTE: LOCAL TITLE: PHARMACY PROGRESS NOTE STANDARD TITLE: PHARMACY NOTE DATE OF NOTE: MAY 12, 2024@12:51 ENTRY DATE: MAY 12, 2024@12:51:44 AUTHOR: FERNANDA FITZGERALD EXP COSIGNER: URGENCY: STATUS: COMPLETED Oncologic Diagnosis: Multiple Myeloma Antineoplastic Regimen: Lenalidomide Oncology Provider: Sharri Garcia First Treatment Date: 05/02/2018 Allergies/ADRs: ATORVASTATIN (Aug 17, 2015) SIMVASTATIN (Aug 17, 2015) DARIUS TIJERINA is a 78 year old MALE with IgA lambda multiple myeloma who has remained on LENALIDOMIDE therapy since 08/2019. was contacted for toxicity assessment. Visit was [...] - Magnesium oxide scheduled for hypomagnesemia - [id number] scheduled for hypophosphatemia Interval History: Ashford reports that he is doing well at this time. He shares that he took his last dose of this cycle on 05/09. He reports adherence to Lenalidomide 10mg by mouth daily on days 1-21 of a 28-day cycle. He shares that things are going okay. He continues to shares that his appetite is good and that his weight is stable. He denies any nausea/vomiting, diarrhea/constipation, fever/chills, lightheadedness/dizziness or bruising/bleeding. He has not had any recent medication changes or ED visits/hospitalizations. Next cycle is due to start on 05/17/24. Teratogenic Medication Assessment (male): 1. Have you [...] - Fat pad : negative Cytogenetic studies ([id number] from 04/08/2018) on bone marrow aspirate done at [facility] in [place], [place] reportedly show the following FISH results: FISH RESULTS: Summary of FISH results: Gain of 1q Absent FGFR3/IGH rearrangement t(4;14) Absent CCND1/IGH rearrangement t(11;14) Present Deletion 13q, loss of 13 Absent IGH/MAF rearrangement t(14;16) Absent IGH/MAFB rearrangement t(14;20) Absent TP53 Deletion (17p) Absent FISH RESULTS: nuc idris(CDKN2C,CKS1B) x2[100] nuc idris(JSPM6s1,IGHx3~4) [87/100] nuc idris(JBPN5b3,IGHx4)(CCND1 con IGHx2)[61/100]/ (CCNDx2,IGHx3)(CCND1 con IGHx1)[16/100]/ (CCND1,IGH) x3(CCND1 con IGHx2) [12/100] nuc idris([id number]/D13S25,13qter)x2 [100] nuc idris(IGHx3~4,MAFBx2)[88/100] nuc idris(IGHx3~4,MAFx2)[84/100] nuc idris(TP53,D17Z1)x2[100] [...] [employer] and the [facility]. The other IGH translocation probes showed [...] AT ACTIVE BEDTIME NEEDED FOR ALLERGIES 3) CYANOCOBALAMIN 1000MCG TAB TAKE ONE TABLET BY MOUTH ACTIVE EVERY DAY 4) EMPAGLIFLOZIN 25MG TAB TAKE ONE-HALF TABLET BY MOUTH ACTIVE (S) EVERY MORNING FOR DIABETES AND KIDNEY 5) GLIPIZIDE 10MG TAB TAKE ONE TABLET BY MOUTH TWICE A ACTIVE DAY 30 MINUTES BEFORE MEAL FOR DIABETES 6) MAGNESIUM OXIDE 420MG TAB TAKE ONE TABLET BY MOUTH ACTIVE TWICE A DAY FOR LOW MAGNESIUM 7) METFORMIN HCL 1000MG TAB TAKE ONE TABLET BY MOUTH ACTIVE EVERY DAY TO DECREASE BLOOD SUGAR 8) MOMETASONE 100MCG/ACTUAT 120D ORAL INHL INHALE 2 ACTIVE PUFFS BY MOUTH TWICE A DAY FOR COPD 9) OLODATEROL/TIOTROP 2.5MCG/ACTUAT 60D INH INHALE 2 ACTIVE PUFFS BY INHALATION EVERY DAY TO PREVENT TROUBLE BREATHING 10) PHOS 250/POTASS 280/NA 160MG PKT PWDR TAKE 1 PACKET ACTIVE BY MOUTH TWICE A DAY *MIX PACKET WITH 2.5 ML OF WATER OR JUICE. STIR WELL AND DRINK PROMPTLY 11) PROCHLORPERAZINE MALEATE 10MG TAB TAKE ONE TABLET [...] medications, and laboratory values were reviewed for drug-drug, drug-disease, and drug-food interactions, indications for drug use, identification of adverse drug reactions, and assessment of efficacy and compliance. Labs: ===== No new laboratory results in the last 30 days. VITALS: ======= 67.323 in [171.0 cm] (04/22/2024 14:27) 210.9 lb [95.66 kg] (04/22/2024 14:27) 133/80 (04/22/2024 14:35) Review of Systems: Yes No [ ] [ X ] Dermatologic: skin rash, HFSR, alopecia [ ] [ X ] GI: diarrhea/constipation, nausea/vomiting, mucositis, lack of appetite, change in taste, weight loss, abdominal pain [ ] [ X ] [employer]/Neurology: headache, dizziness, insomnia, neuropathy, tinnitus [ ] [...] enough supply until next provider appointment: no, refill signed in VCM today to be faxed to [facility] Indication for Dose Reduction: anticipated tolerance and [...] Lenalidomide well at this time without any new or worsening side effects to report. - Last laboratory results completed [...] completed during this visit. - Authorization number [id number]. Next cycle to start on 05/17/24. - VCM orders signed. Pharmacy notified to [facility]. - All questions answered to patient's stated satisfaction Oncology Follow-up Plan: - Next pharmacist follow-up: as needed or requested - Next laboratory evaluation: 06/12 as scheduled - Next provider follow-up: 06/12 with Sharri Garcia as scheduled Time spent with : 20 minutes /es/ FERNANDA FITZGERALD PharmD, BCACP Signed: 05/12/2024 13:14 FERNANDA FITZGERALD [facility]
--- OUTSIDE RECORDS SUMMARY | 2024-06-08 10:51 | XMS_ITS | Encounter Summary ---
Author Name [facility] [place] Address [address] [place] [id number] Care Team Providers Care Stone Layout Marker Name Role Phone ALESHIA SHELBY Primary Care [...] Name Patient's Relationship to Policy Colbert HUMANA [facility]) MEDICARE ADVANTAGE [facility] ([facility]) Jul 09, 2022 [id number] DARIUS TIJERINA PATIENT HUMANA [facility] ([facility]) MEDICARE ADVANTAGE [facility] ([facility]) Jul 09, 2022 [id number] [phone] DARIUS TIJERINA PATIENT MEDICA [facility] ([facility]) MEDICARE ADVANTAGE [facility] ([facility]) Jul 09, 2018 [id number] [phone] DARIUS TIJERINA PATIENT MEDICARE ([facility]) MEDICARE (M) PART A Aug 09, 2011 PART A [id number] [phone] DARIUS TIJERINA PATIENT MEDICARE ([facility]) MEDICARE (M) PART B Aug 09, 2011 PART B [id number] [phone] TIJERINA DARIUS PATIENT Selected Encounter This section includes the information on record at [place] for the Encounter. Date/Time Encounter Type Encounter Description Reason Provider Source Apr 11, 2024 02:12 PM Outpatient Encounter CHEMOTHERAPY PROC. [facility] FERNANDA FITZGERALD [facility] Encounter Template Text not used by [place] Plan of Treatment: Future Appointments (+ 6 months) and Future Tests (+/- 45 days) The Plan of Treatment section includes future care activities for the patient from all [place] treatmentfacilities. This section includes future appointments and future orders which are active, pending or scheduled. Future Appointments This section includes appointments that were scheduled to occur 6 months from the date of the Encounter, up to a maximum of 20 appointments. The data comes from all [place] treatment facilities. Appointment Date/Time Appointment Type Appointme nt Facility Name Apr 22, 2024 02:30 PM AMBULATORY - MEDICINE [facility] ([facility]) May 12, 2024 12:45 PM AMBULATORY - NONE [facility] Jun 12, 2024 12:30 PM AMBULATORY - NONE [facility] Jun 12, 2024 01:30 PM AMBULATORY - MEDICINE [facility] Vital Signs: All taken on the encounter date This section contains inpatient and outpatient Vital Signs collected on the date of the Encounter. Date/Time Temperature Pulse Blood Pressure Respiratory Rate SP02 Pain Height Weight Body Mass Index Source Apr 11, 2024 02:10 PM 212.4 34 [facility]
--- OUTSIDE RECORDS SUMMARY | 2024-06-08 10:51 | XMS_ITS | Encounter Summary ---
Author Name [facility] [facility] [place] Address [address] [place] [address] Care Team Providers Care Intelligence Group Supervisor Name Role Phone ALESHIA SHELBY Primary Care [...] Name Patient's Relationship to Policy Colbert HUMANA [facility] ([facility]) MEDICARE ADVANTAGE [facility] ([facility]) Jul 09, 2022 [id number] DARIUS TIJERINA PATIENT HUMANA [facility] ([facility]) MEDICARE ADVANTAGE [facility] ([facility]) Jul 09, 2022 [id number] 22 DARIUS TIJERINA PATIENT MEDICA [facility] ([facility]) MEDICARE ADVANTAGE [facility] ([facility]) Jul 09, 2018 [id number] [phone] LILLIANA DARIUS PATIENT MEDICARE (WNR) MEDICARE (M) PART A Aug 09, 2011 PART A [id number] [phone] TIJERINADARIUS PATIENT MEDICARE ([facility]) MEDICARE (M) PART B Aug 09, 2011 PART B [id number] [phone] DARIUS TIJERINA PATIENT Selected Encounter This section includes the information on record at [place] for the Encounter. Date/Time Encounter Type Encounter Description Reason Provider Source Apr 22, 2024 02:30 PM OFFICE O/P EST HI 40 MIN PRIMARY CARE/MEDICINE ICD-10-CM Z00.00 Encntr for general adult medical exam w/o abnormal findings ALESHIA SHELBY Marlyn Encounter Template Text not used by [place] Assessments - Encounter Diagnoses This section includes the primary and secondary diagnoses documented for the Encounter. Date/Time Primary/Secondary Diagnosis Diagnosis Name Provider Source Apr 22, 2024 03:15 PM PRIMARY Encntr for general adult medical exam w/o abnormal findings ALESHIA SHELBY ([facility]) Apr 22, 2024 03:15 PM SECONDARY Allergy, unspecified, initial encounter ALESHIA SHELBY ([facility]) Apr 22, 2024 03:15 PM SECONDARY Chronic kidney disease, unspecified ALESHIA SHELBY ([facility]) Apr 22, 2024 03:15 PM SECONDARY Chronic obstructive pulmonary disease, unspecified ALESHIA SHELBY ([facility]) Apr 22, 2024 03:15 PM SECONDARY Gout, unspecified ALESHIA SHELBY ([facility]) Apr 22, 2024 03:15 PM SECONDARY Hyperlipidemia, unspecified ALESHIA SHELBY ([facility]) Apr 22, 2024 03:15 PM SECONDARY Type 2 diabetes mellitus without complications ALESHIA SHELBY ([facility]) Plan of Treatment: Future Appointments (+ 6 months) and Future Tests (+/- 45 days) The Plan of Treatment section includes future care activities for the patient from all [place] treatmentfacilities. This section includes future appointments and future orders which are active, pending or scheduled. Future Appointments This section includes appointments that were scheduled to occur 6 months from the date of the Encounter, up to a maximum of 20 appointments. The data comes from all [place] treatment facilities. Appointment Date/Time Appointment Type Appointme nt Facility Name May 12, 2024 12:45 PM AMBULATORY - NONE [facility] Jun 12, 2024 12:30 PM AMBULATORY - NONE [facility] Jun 12, 2024 01:30 PM AMBULATORY - MEDICINE [facility] Vital Signs: All taken on the encounter date This section contains inpatient and outpatient Vital Signs collected on the date of the Encounter. Date/Time Temperature Pulse Blood Pressure Respiratory Rate SP02 Pain Height Weight Body Mass Index Source Apr 22, 2024 02:35 PM 133/80 [facility] Apr 22, 2024 02:28 PM 99 96 [facility] Apr 22, 2024 02:27 PM 97.2 16 0 67.323 210.9 33 [facility]) Social History: Smoking Status (Most current) and Tobacco Use (All prior to encounter date) This section includes the most current, and the historical, smoking and tobacco- related health factors from the [place] facility where the Encounter took place. Current Smoking Status This section includes the most current smoking, or tobacco-related health factor, from the [place] facility where the Encounter took place. Date/Time Current Smoking Status Comment Facil ity Apr 22, 2024 02:30 PM VA-TOBACCO FORMER USER [facility]) Tobacco Use History This section includes a history of the smoking, or tobacco-related health factors, that were collected on or before the date of the Encounter. The data comes from the [place] facility where the Encounter took place. Date/Time Smoking Status/Tobacco Use Comment F acility Apr 22, 2024 02:30 PM VA-TOBACCO QUIT 15 YRS OR MORE [facility] ([facility]) Apr 10, 2023 02:30 PM VA-TOBACCO FORMER USER [facility]) Apr 10, 2023 02:30 PM VA-TOBACCO QUIT 5 TO < 15 YRS [facility] ([facility]) Mar 30, 2022 01:30 PM VA-TOBACCO FORMER USER [facility]) Mar 30, 2022 01:30 PM VA-TOBACCO QUIT 5 TO < 15 YRS [facility] ([facility]) Mar 30, 2021 01:30 PM VA-TOBACCO FORMER USER [facility]) Mar 30, 2021 01:30 PM VA-TOBACCO QUIT 5 TO < 15 YRS [facility] ([facility]) Mar 16, 2020 01:00 PM VA-TOBACCO FORMER USER [facility]) Mar 16, 2020 01:00 PM VA-TOBACCO QUIT 5 TO < 15 YRS [facility] ([facility]) Aug 22, 2018 11:29 AM VA-TOBACCO FORMER USER [facility]) Aug 22, 2018 11:29 AM VA-TOBACCO QUIT 5 TO < 15 YRS [facility] ([facility]) Jan 24, 2018 09:47 AM FORMER TOBACCO USER 7Y OR GREATE R [facility] ([facility]) Mar 15, 2017 12:51 PM FORMER TOBACCO USE >1Y <7Y [facility] ([facility]) November 16, 2015 01:10 PM FORMER TOBACCO USE >1Y <7Y [facility]) Feb 12, 2015 02:32 PM FORMER TOBACCO USE >1Y <7Y [facility]) Feb 12, 2014 09:45 AM FORMER TOBACCO USE >1Y <7Y [facility]) Jan 02, 2013 07:49 AM FORMER TOBACCO USE >1Y <7Y [facility]) Mar 27, 2011 11:18 AM FORMER TOBACCO USE >1Y <7Y [facility]) Apr 14, 2010 09:34 AM FORMER TOBACCO USE <1Y [facility]) Jun 15, 2009 01:14 PM FORMER TOBACCO USE <1Y [facility]) May 28, 2008 12:34 PM FORMER TOBACCO USE <1Y [facility] ([facility]) Encounter Notes: All associated encounter notes This section contains the clinical notes associated to the Encounter. Date/Time Encounter Note(s) Provider Source Apr 22, 2024 02:41 PM H & P NOTE: LOCAL TITLE: [facility] ANNUAL VISIT STANDARD TITLE: H & P NOTE DATE OF NOTE: APR 22, 2024@14:41 ENTRY DATE: APR 22, 2024@08:42:49 AUTHOR: ALESHIA SHELBY COSIGNER: URGENCY: STATUS: COMPLETED Type of Visit: Face to Face Reason for Visit: Annual review of chronic medical conditions HPI: 78 year-old MALE here for his annual visit. [place] was last seen 04/10/2024 for an annual visit. Since that time he has been followed with hematology oncology, ophthalmology, pulmonary clinic and Occupational Therapy. was seen on 10/17/2023 for 6-month diabetes recheck. Seems to be doing ok. Has having some issues with his cough. Not very frequent. Thinks it is related to COPD. Co-managed: [facility] Home medications: reviewed and updated Chest pain/chest pressure: none Shortness of breath: so-so with the breathing - he went to a respiratory thing recently - - it was a respiratory therapy program - decided it wasn't for him - can't drive to the area 2-3 times per week - can walk somedays more than others Palpitations: none Lower extremity swelling: none Home blood pressures: not monitoring at home Weight: 7.2 lb down from 10/2023 CPAP: no history of sleep apnea Sleep issues: seems to be sleeping more recently Mood: seems good, issues with his dog recently Memory: no concerns Dizziness: none Urinary symptoms: Urinary flow: stream seems ok Hesitancy: none Emptying: seems ok Incontinence: none Night-time void: 2 times a night (can be 0-3) GI symptoms: Heartburn/Reflux: none, will take rolaids as needed Diarrhea/Constipation: no issues Arthritis: seem ok,achy is usual - tingling in his feet due to neuropathy - has been 1-2 years of symptoms Vision: no concerns Hearing: has hearing aids, not wearing today Skin: no active concrns Home blood sugar: not monitoring Review of systems: otherwise negative Past Medical [...] Chronic kidney disease stage 3 10. Gout Past Surgical History: 1. Tonsillectomy - as a child 2. Umbilical hernia repair 3. Bilateral Cataract Surgery Family History: 1. Father - at 88 y.o from ?stomach cancer 2. Mother - COPD. +Smoker 3. Son - 08/2020 massive [place] Social History: 1. Ex-smoker - quit 2007. 1ppd x 40 yrs 2. ETOH Seldom (2-4 times per month, 1-2 drinks) 3. No illicit drugs 4. Retired. 5. Served in [employer] Allergies: atorvastatin and simvastatin Physical Exam: Temp: 97.2 F [36.2 C] (04/22/2024 14:) Pulse: 99 (04/22/2024 14:) BP: 133/80 (04/22/2024 14:35) Resp: 16 (04/22/2024:) O2 Sat: 96% (04/22/2024:) Weight: 210.9 lb [95.66 kg] (04/22/2024) BMI: 32.8 Pain: 0 (04/22/2024) General: AAOx3, NAD, Healthy, obese HEENT: PERRL, [...] cyanosis, or edema Neuro: non-focal Skin: Labs: ---- CBC & MORPH (by collection time) ---- BLOOD Sep 04 [place] 12 Apr 17 Mar 20 Reference 2023 2023 2023 2023 13:12 12:56 12:12 12:24 Units Ranges WBC 3.7 L 5.3 3.3 L 3.2 L K/cmm 4 - 11 RBC 4.00 L 3.91 L 3.67 L 4.04 L M/cmm 4.6 - 6.2 HGB 13.1 L 12.9 L 11.8 L 13.1 L g/dL 13.5 - 17.9 HCT 38.8 L 38.8 L 36.3 L 39.0 L % 41 - 54 MCV 97.0 99.2 98.9 96.5 fL 80 - 100 MCH 32.8 33.0 32.2 32.4 pg 27 - 33 MCHC 33.8 33.2 32.5 33.6 gm/dL 32 - 37.5 RDW 14.6 H 15.2 H 15.9 H 15.9 H % 11.5 - 14.5 PLT 100 L 122 L 106 L 116 L K/cmm 150 - 400 MPV 10.2 9.9 10.6 H 10.0 fL 7.4 - 10.4 ---- LIPID GROUP (PLASMA)(by collection time) ---- PLASMA CHOL TRIG HDL LDL VLDL NONHDLC Ref range low 0 0 Ref range high 200 150 mg/dL mg/dL mg/dL mg/dL mg/dL mg/dL [ae] May 07, 2023 12:07 220 H 390 H 50 92 78 H 170 H ---- URINE MISC. (by collection time) ---- URINE OSMOL NA K FENA PROT/CR ALB/CR Ref range low 500 0 0 Ref range high 800 .2 30 mOsm/kg mmol/L mmol/L Percent g/gCreat mg/g creat [q] Aug 01, 2023 10:20 23.5 [s] Aug 01, 2023 10:20 0.18 ---- PLASMA CHEM PROFILE (by collection time) ---- PLASMA Mar 12 Dec 18 Oct 23 Sep 25 Reference 2023 2023 2023 2023 13:12 12:56 12:12 12:24 Units Ranges CREAT 1.7 H 1.8 H 1.7 H 1.8 H mg/dL .7 - 1.2 BUN 34 H 33 H 31 H 20 mg/dL 8 - 26 GLUCOSE 220 H 204 H 240 H 118 H mg/dL 74 - 106 SODIUM 140 142 140 138 mmol/L 136 - 145 K+ 4.4 4.1 3.7 3.9 mmol/L 3.5 - 5 CL- 110 H 109 H 106 105 mmol/L 98 - 107 CO2 18.0 L 20.0 L 22.0 22.0 mmol/L 21 - 32 ANI GAP 12 13 12 11 mmol/L 5 - 15 CALCIUM 9.5 9.4 9.0 9.3 mg/dL 8.5 - 10.1 TP 6.6 6.8 6.4 6.6 g/dL 6.4 - 8.2 ALB 4.4 4.3 4.1 4.2 g/dL 3.4 - 5 MG 2.0 2.3 2.0 1.8 mg/dL 1.8 - 2.4 TBIL 0.7 0.5 0.6 0.8 mg/dL .2 - 1 ALT 21 22 31 29 U/L 13 - 61 AST 12 10 20 30 U/L 15 - 37 ALKP 123 116 115 137 U/L 45 - 117 URIC A 8.2 H 8.0 H 7.7 H mg/dL 3.5 - 7.2 Mar 12, 2024@13:12 TSH : 0.79 uIU/mL 0.35 - 4.94 Mar 12, 2024@13:12 CREAT EGFR(CKD-EPI): 41 L Ref: >=60 Oct 24, 2023@12:13 HEMOGLOBIN A1C: 6.5 H % 4.0 - 6.0 May 07, 2023@12:07 HEMOGLOBIN A1C: 6.8 H % 4.0 - 6.0 Aug 01, 2023@10:20 CREATININE,UR RANDOM: 69.7 mg/dL 58.0 - 161.0 Aug 01, 2023@10:20 ALBUMIN,UR: 16.4 mg/L Ref: <=29.9 Essential Medication List - reviewed with Patient/Caregiver FACILITY ALLERGY/ADR -------- No Remote Allergy/ADR Data available for this patient [facility] ATORVASTATIN [facility] SIMVASTATIN Active Medications: + +--------+----- ---+--------+--------+ Medication (Local) New Med Old Dose New Dose Discontd + +--------+----- ---+--------+--------+ ALBUTEROL 90MCG (CFC-F) 200D ORAL INHL Directions: INHALE 2 PUFFS BY INHALATION EVERY 4-6 HOURS NEEDED FOR IMMEDIATE RELIEF OF SHORTNESS OF BREATH - SHAKE WELL Expires: 01/17/25 Status: ACTIVE + +--------+----- ---+--------+--------+ CETIRIZINE HCL 10MG TAB Directions: TAKE ONE TABLET BY MOUTH AT BEDTIME NEEDED FOR ALLERGIES Expires: 12/19/24 Status: ACTIVE + +--------+----- ---+--------+--------+ DEXAMETHASONE 4MG TAB Directions: TAKE FIVE TABLETS BY MOUTH ONCE WEEKLY WITH FOOD OR MILK. THIS IS A COMPONENT OF A CHEMOTHERAPY REGIMEN. Expires: 05/11/24 Status: ACTIVE + +--------+----- ---+--------+--------+ GLIPIZIDE 10MG TAB Directions: TAKE ONE TABLET BY MOUTH TWICE A DAY 30 MINUTES BEFORE MEAL FOR DIABETES Expires: 12/04/24 Status: ACTIVE + +--------+----- ---+--------+--------+ LENALIDOMIDE 10MG CAP Directions: TAKE ONE CAPSULE BY MOUTH EVERY DAY FOR 21 DAYS AND THEN 7 DAYS OFF. SWALLOW WHOLE WITH WATER *FOR DOCUMENTATION ONLY - FILLED BY SPECIALTY PHARM[facility]Y* Expires: 05/11/24 Status: ACTIVE + +--------+----- ---+--------+--------+ PHOS 250/POTASS 280/NA 160MG PKT PWDR Directions: TAKE 1 PACKET BY MOUTH TWICE A DAY *MIX PACKET WITH 2.5 ML OF WATER OR JUICE. STIR WELL AND DRINK PROMPTLY Expires: 07/17/24 Status: ACTIVE + +--------+----- ---+--------+--------+ EMPAGLIFLOZIN 25MG TAB Directions: TAKE ONE-HALF TABLET BY MOUTH EVERY MORNING FOR DIABETES AND KIDNEY Expires: 03/18/25 Status: ACTIVE/SUSP + +--------+----- ---+--------+--------+ MAGNESIUM OXIDE 420MG TAB Directions: TAKE ONE TABLET BY MOUTH TWICE A DAY FOR LOW MAGNESIUM Expires: 09/25/24 Status: ACTIVE/SUSP + +--------+----- ---+--------+--------+ PROCHLORPERAZINE MALEATE 10MG TAB Directions: TAKE ONE TABLET BY MOUTH EVERY 6 HOURS NEEDED FOR NAUSEA AND VOMITING. DO NOT TAKE MORE THAN 40 MG PER DAY. Expires: 12/20/24 Status: HOLD + +--------+----- ---+--------+--------+ Pending Medications: + +--------+----- ---+--------+--------+ Medication (Local) New Med Old Dose New Dose Discontd + +--------+----- ---+--------+--------+ No local medications found. + +--------+----- ---+--------+--------+ ======= Medications (Past 90 days): ======= + +--------+----- ---+--------+--------+ Medication (Local) New Med Old Dose New Dose Discontd + +--------+----- ---+--------+--------+ CYANOCOBALAMIN 1000MCG TAB X Directions: TAKE ONE TABLET BY MOUTH EVERY DAY Expires: 04/10/24 Status: + +--------+----- ---+--------+--------+ METFORMIN HCL 1000MG TAB X Directions: TAKE ONE TABLET BY MOUTH EVERY DAY TO DECREASE BLOOD SUGAR Expires: 04/10/24 Status: + +--------+----- ---+--------+--------+ MOMETASONE 100MCG/ACTUAT 120D ORAL INHL X Directions: INHALE 2 PUFFS BY MOUTH TWICE A DAY FOR COPD Expires: 04/10/24 Status: + +--------+----- ---+--------+--------+ NYSTATIN [id number] UNT/ML SUSP X Directions: TAKE 1 TEASPOONFUL BY MOUTH FOUR TIMES A DAY FOR INTERMITTENT THRUSH * MAKE SURE YOU SWISH AND THEN SWALLOW* Expires: 03/09/24 Status: + +--------+----- ---+--------+--------+ OLODATEROL/TIOTROP 2.5MCG/ACTUAT 60D INH X Directions: INHALE 2 PUFFS BY INHALATION EVERY DAY TO PREVENT TROUBLE BREATHING Expires: 04/10/24 Status: + +--------+----- ---+--------+--------+ Non-[facility] Medications: + +--------+----- ---+--------+--------+ Medication (Local) New Med Old Dose New Dose Discontd + +--------+----- ---+--------+--------+ ALBUTEROL/IPRATROPIUM SOLN,INHL Directions: 3 ML ALBUTEROL 2.5% SOLUTION INHALATION TWICE A DAY NEEDED Status: ACTIVE + +--------+----- ---+--------+--------+ ASCORBIC ACID TAB Directions: EVERY DAY Status: ACTIVE + +--------+----- ---+--------+--------+ ASPIRIN 81MG EC TAB Directions: 81 MG MOUTH EVERY DAY Status: ACTIVE + +--------+----- ---+--------+--------+ CHOLECALCIF 25MCG (D3-1,000UNIT) TAB Directions: 1000UNIT MOUTH EVERY DAY Status: ACTIVE + +--------+----- ---+--------+--------+ FISH OIL 1000MG (500MG DHA/EPA) CAP Directions: 1GM MOUTH TWICE A DAY Status: ACTIVE + +--------+----- ---+--------+--------+ LORATADINE 10MG TAB Directions: 10MG MOUTH NEEDED Status: ACTIVE + +--------+----- ---+--------+--------+ MULTIVITAMIN CAP/TAB Directions: 1 TABLET MOUTH EVERY DAY Status: ACTIVE + +--------+----- ---+--------+--------+ Discontinued Medications (Past 90 days): + +--------+----- ---+--------+--------+ Medication (Local) New Med Old Dose New Dose Discontd + +--------+----- ---+--------+--------+ DEXAMETHASONE 4MG TAB X Directions: TAKE FIVE TABLETS BY MOUTH ONCE WEEKLY WITH FOOD OR MILK. THIS IS A COMPONENT OF A CHEMOTHERAPY REGIMEN. Status: DISCONTINUED + +--------+----- ---+--------+--------+ DEXAMETHASONE 4MG TAB X Directions: TAKE FIVE TABLETS BY MOUTH ONCE WEEKLY WITH FOOD OR MILK. THIS IS A COMPONENT OF A CHEMOTHERAPY REGIMEN. Status: DISCONTINUED + +--------+----- ---+--------+--------+ DEXAMETHASONE 4MG TAB X Directions: TAKE FIVE TABLETS BY MOUTH ONCE WEEKLY WITH FOOD OR MILK. THIS IS A COMPONENT OF A CHEMOTHERAPY REGIMEN. Status: DISCONTINUED + +--------+----- ---+--------+--------+ EMPAGLIFLOZIN 25MG TAB X Directions: TAKE ONE-HALF TABLET BY MOUTH EVERY MORNING FOR DIABETES AND KIDNEY Status: DISCONTINUED + +--------+----- ---+--------+--------+ LENALIDOMIDE 10MG CAP X Directions: TAKE ONE CAPSULE BY MOUTH EVERY DAY FOR 21 DAYS AND THEN 7 DAYS OFF. SWALLOW WHOLE WITH WATER *FOR DOCUMENTATION ONLY - FILLED BY [facility]* Status: DISCONTINUED + +--------+----- ---+--------+--------+ LENALIDOMIDE 10MG CAP X Directions: TAKE ONE CAPSULE BY MOUTH EVERY DAY FOR 21 DAYS AND THEN 7 DAYS OFF. SWALLOW WHOLE WITH WATER*FOR DOCUMENTATION ONLY-FILLED BY [facility] Status: DISCONTINUED + +--------+----- ---+--------+--------+ LENALIDOMIDE 10MG CAP X Directions: TAKE ONE CAPSULE BY MOUTH EVERY DAY FOR 21 DAYS AND THEN 7 DAYS OFF. SWALLOW WHOLE WITH WATER *FOR DOCUMENTATION ONLY - FILLED BY [facility]* Status: DISCONTINUED + +--------+----- ---+--------+--------+ ====== Remote Medications (Past 90 days): ====== + +--------+----- ---+--------+--------+ Medication (Remote) New Med Old Dose New Dose Discontd + +--------+----- ---+--------+--------+ No remote medications found. + +--------+----- ---+--------+--------+ Medication list given to at end of visit Imaging Assessment/Plan: 1. Plasma Cell Myeloma - Last saw Hem/Onc (04/11/2024). - s/p 20 cycles of VRD which [...] COPD - chronic obstructive pulmonary disease - didn't tolerate prednisone dosing last time used - caused him dizziness - Continue olodaterol/tiotropium 2 inhalations daily - Continue mometasone 2 inhalations twice daily - Continue albuterol MDI 2 inhalation every 4-6 hours as needed - Continue albuterol nebulizer treatments as needed. - Follow-up as scheduled with pulmonology - CXR, PFT and pulmonology appointment 11/02/2023 - Hornsby went to one pulmonary rehab visits and won't go back 3. Type 2 diabetes - Goal HgA1C < 8.0 - HgA1C added to Heme/Onc labs 10/24/2023 - Recheck HbA1c and microalbumin with 06/2024 heme/onc labs - Continue Metformin 1000mg once daily - Continue empagliflozin 25mg 1/2 tablet daily - Continue Glipizide 10mg Daily - Work on healthy diet, regular exercise and weight loss. 4. Gout - discontinued allopurinol due to side effect - Taking an OTC supplement daily also 5. Hyperlipidemia - LDL Goal < 100. - Patient has documented allergy to Atorvastatin and Simvastatin - Lipid panel with April heme/onc labs - Continue Fish Oil 1000mg twice daily - Continue Aspirin 81mg Daily for ASCVD Risk Reduction 6. Environmental Allergies/vasomotor rhinitis - Continue Loratadine 10mg Daily as needed 7. Cataract - s/p bilateral surgery. - Follow up Ophtho as needed 8. Vitamin D Deficiency = 37 (03/07/18) (Goal > 30) - Continue OTC Vitamin D3 25mcg Daily 9. Hearing Loss/Tinnitus - patient request Audiology referral - Follow up Audiology ([phone]) as needed 10. Health Care Maintenance - Colon Cancer Screening - Last Colonoscopy 05/25/2020 - 14 sessile polyps 2-8mm insize - Recommended 3 year repeat (Due 05/2023) - Extensive prep recommmended - Consider not pursuing further colonoscopy - active multiple myeloma treatment - Increased HERRERA with COPD - AAA Screening (Age > 65-75) - Abdominal U/S (01/23/2013) no aneurysm - Lung Cancer Screening - CT Chest (06/03/18) No suspicious lung nodule. - Recommend no further lung cancer screening - Vaccinations: IM - Immunizations ADMINISTERED Immunization Series Date Facility Reaction Info COVID-19 (PFIZER), MRNA, LNP-S, * 1 07/19/2022 [facility] COVID-19 (PFIZER), MRNA, LNP-S, * 3 04/22/2021 [place] <[facility]> COVID-19 (PFIZER), MRNA, LNP-S, * 2 08/27/2020 [place] <C> COVID-19 (PFIZER), MRNA, LNP-S, * 1 08/06/2020 [place] <C> COVID-19 (PFIZER), MRNA, LNP-S, * 02/22/2022 [facility] COVID-19 (PFIZER), MRNA, LNP-S, * 03/19/2024 [facility] COVID-19 (PFIZER), MRNA, LNP-S, * 1 06/11/2023 [facility] <C> INFLUENZA, HIGH-DOSE, TRIVALENT,* 03/19/2024 [facility] PNEUMOCOCCAL CONJUGATE PCV 13 02/12/2015 [facility] <C> PNEUMOCOCCAL POLYSACCHARIDE PPV23 10/10/2007 [facility] PNEUMOCOCCAL, UNSPECIFIED FORMUL* 01/02/2013 [facility] <C> TDAP 05/08/2021 [facility] ZOSTER LIVE 11/28/2011 [facility] <C> ZOSTER LIVE 10/10/2007 [facility] ZOSTER RECOMBINANT 2 06/11/2023 [facility] <C> ZOSTER RECOMBINANT 1 04/10/2023 [facility] <C> CVF - Future Appointment: 05/12/2024 12:45 [facility] PHARM PHONE 2 06/12/2024 12:30 [facility] LAB TIME SENS BLOOD D 06/12/2024 13:30 [facility] FRID EXPLOSIVE ORDNANCE DISPOSAL SPECIALIST RTC in 1 year annual visit CPRS chart review/chart prep: 11 minutes Time with patient: 30 minutes Chart completion: 3 minutes Clinical Reminders: Medication Reconciliation: Education Evaluations [...] Remote Allergy/ADR Data available for this patient [facility] ATORVASTATIN [facility] SIMVASTATIN Active and Recently Outpatient Medications (including Supplies): Issue Date Status Last Fill Active Outpatient Medications Refills Expiration 1) ALBUTEROL 90MCG (CFC-F) 200D ORAL INHL ACTIVE Issu:01-17-24 Qty: 2 for 50 days Sig: INHALE 2 Refills: 5 Last:04-11-24 PUFFS BY INHALATION EVERY 4-6 HOURS Expr:01-17-25 NEEDED FOR IMMEDIATE RELIEF OF SHORTNESS OF BREATH - SHAKE WELL 2) CETIRIZINE HCL 10MG TAB Qty: 30 for 30 ACTIVE Issu:12-19-23 days Sig: TAKE ONE TABLET BY MOUTH AT Refills: 8 Last:04-14-24 BEDTIME NEEDED FOR ALLERGIES Expr:12-19-24 3) DEXAMETHASONE 4MG TAB Qty: 20 for 28 ACTIVE Issu:04-11-24 days Sig: TAKE FIVE TABLETS BY MOUTH Refills: 0 Last:04-11-24 ONCE WEEKLY WITH FOOD OR MILK. THIS IS Expr:05-11-24 A COMPONENT OF A CHEMOTHERAPY REGIMEN. 4) EMPAGLIFLOZIN 25MG TAB Qty: 45 for 90 ACTIVE (S) Issu:03-17-24 days Sig: TAKE ONE-HALF TABLET BY Refills: 2 Last:06-07-24 MOUTH EVERY MORNING FOR DIABETES AND Expr:03-18-25 KIDNEY 5) GLIPIZIDE 10MG TAB Qty: 180 for 90 days ACTIVE Issu:12-04-23 Sig: TAKE ONE TABLET BY MOUTH TWICE A Refills: 3 Last:01-05-24 DAY 30 MINUTES BEFORE MEAL FOR Expr:12-04-24 DIABETES 6) LENALIDOMIDE 10MG CAP Qty: 21 for 28 ACTIVE Issu:04-11-24 days Sig: TAKE ONE CAPSULE BY MOUTH Refills: 0 Last:04-15-24 EVERY DAY FOR 21 DAYS AND THEN 7 DAYS Expr:05-11-24 OFF. SWALLOW WHOLE WITH WATER *FOR DOCUMENTATION ONLY - FILLED BY [facility]* 7) MAGNESIUM OXIDE 420MG TAB Qty: 100 for ACTIVE (S) Issu:09-25-23 50 days Sig: TAKE ONE TABLET BY MOUTH Refills: 0 Last:05-10-24 TWICE A DAY FOR LOW MAGNESIUM Expr:09-25-24 8) PHOS 250/POTASS 280/NA 160MG PKT PWDR ACTIVE Issu:07-17-23 Qty: 100 for 50 days Sig: TAKE 1 Refills: 1 Last:08-27-23 PACKET BY MOUTH TWICE A DAY *MIX Expr:07-17-24 PACKET WITH 2.5 ML OF WATER OR JUICE. STIR WELL AND DRINK PROMPTLY 9) PROCHLORPERAZINE MALEATE 10MG TAB Qty: HOLD Issu:12-20-23 60 for 30 days Sig: TAKE ONE TABLET Refills: 1 BY MOUTH EVERY 6 HOURS NEEDED FOR Expr:12-20-24 NAUSEA AND VOMITING. DO NOT TAKE MORE THAN 40 MG PER DAY. Issue Date Status Last Fill Inactive Outpatient Medications Refills Expiration 1) CYANOCOBALAMIN 1000MCG TAB Qty: 100 for Issu:04-10-23 90 days Sig: TAKE ONE TABLET BY MOUTH Refills: 0 Last:02-16-24 EVERY DAY Expr:04-10-24 2) DEXAMETHASONE 4MG TAB Qty: 20 for 28 DISCONTINUED Issu:03-13-24 days Sig: TAKE FIVE TABLETS BY MOUTH Refills: 0 Last:03-13-24 ONCE WEEKLY WITH FOOD OR MILK. THIS IS Expr:04-12-24 A COMPONENT OF A CHEMOTHERAPY REGIMEN. 3) EMPAGLIFLOZIN 25MG TAB Qty: 45 for 90 DISCONTINUED Issu:03-19-23 days Sig: TAKE ONE-HALF TABLET BY Refills: 0 Last:12-08-23 MOUTH EVERY MORNING FOR DIABETES AND Expr:03-19-24 KIDNEY 4) LENALIDOMIDE 10MG CAP Qty: 21 for 28 DISCONTINUED Issu:03-13-24 days Sig: TAKE ONE CAPSULE BY MOUTH Refills: 0 Last:03-18-24 EVERY DAY FOR 21 DAYS AND THEN 7 DAYS Expr:04-12-24 OFF. SWALLOW WHOLE WITH WATER *FOR DOCUMENTATION ONLY - FILLED BY [facility]* 5) LENALIDOMIDE 10MG CAP Qty: 21 for 28 DISCONTINUED Issu:02-14-24 days Sig: TAKE ONE CAPSULE BY MOUTH Refills: 0 Last:02-21-24 EVERY DAY FOR 21 DAYS AND THEN 7 DAYS Expr:03-15-24 OFF. SWALLOW WHOLE WITH WATER*FOR DOCUMENTATION ONLY-FILLED BY SPECIALTY [facility] 6) METFORMIN HCL 1000MG TAB Qty: 90 for 90 Issu:04-10-23 days Sig: TAKE ONE TABLET BY MOUTH Refills: 0 Last:02-20-24 EVERY DAY TO DECREASE BLOOD SUGAR Expr:04-10-24 7) MOMETASONE 100MCG/ACTUAT 120D ORAL INHL Issu:04-10-23 Qty: 3 for 90 days Sig: INHALE 2 Refills: 2 Last:06-29-23 PUFFS BY MOUTH TWICE A DAY FOR COPD Expr:04-10-24 8) NYSTATIN [id number] UNT/ML SUSP Qty: 480 Issu:03-09-23 for 24 days Sig: TAKE 1 TEASPOONFUL Refills: 3 Last:03-13-23 BY MOUTH FOUR TIMES A DAY FOR Expr:03-09-24 INTERMITTENT THRUSH * MAKE SURE YOU SWISH AND THEN SWALLOW* 9) OLODATEROL/TIOTROP 2.5MCG/ACTUAT 60D INH Issu:04-10-23 Qty: 1 for 30 days Sig: INHALE 2 Refills: 1 Last:04-04-24 PUFFS BY INHALATION EVERY DAY TO Expr:04-10-24 PREVENT TROUBLE BREATHING Start Date Active Non-VA Medications Refills Expiration [...] CAP/TAB Si ACTIVE TABLET MOUTH EVERY DAY 25 Total Medications Follow-up Pos Alcohol : Patient's AUDIT-C score was greater than or equal to 5; brief alcohol intervention is indicated. Shared concern that the patient may be drinking at unhealthy levels known to increase his/her risk of alcohol related health problems. Specifically the following were reviewed: High blood pressure, heart disease, liver disease, seizures, medication interactions, depression, anxiety, insomnia, stroke, dementia The patient was advised/informed to drink within safe limits, which are no more than 2 drinks per day on average and no more than 4 drinks on any one day AND no more than 14 drinks per week. Will discuss again at next visit. Repeat Lung Cancer Screen (Provider): Patient is NOT a current candidate for lung cancer screening. Reason for exclusion: Treatment for plasma cell cancer PAVE Foot Check: A complete foot check was completed at this encounter. VISUAL INSPECTION: Includes inspection for skin breaks, deformity, erythema, trauma, pallor on elevation, dependent rubor, nail deformities, extensive callus and pitting edema. Visual exam results: Normal PEDAL PULSES: Includes palpation of dorsalis and posterior tibial pulses and signs/symptoms of vascular compromise like pain, pallor, parasthesia or paralysis. Present (even if diminished) SENSORY CHECK: Includes 10 gram Monofilament ([place]-Marisol) test of sensation. Intact (Greater than or equal to 80% of sites checked) Abnormal (Less than 80% of sites checked): Intact LOW-RISK: LOW RISK INFORMATION PROVIDED: 1. Advised patient not to walk barefoot. 2. Explained the importance of daily foot checks for changes. 3. Stressed the importance of daily foot hygiene, including bathing and complete drying. /es/ ALESHIA SHELBY MD PHYSICIAN Signed: 04/22/2024 15:15 ALESHIA SHELBY ([facility]) Apr 22, 2024 02:36 PM ADVANCE DIRECTIVE: LOCAL TITLE: AD NOTIFICATION AND SCREENING STANDARD TITLE: ADVANCE DIRECTIVE DATE OF NOTE: APR 22, 2024@14:36 ENTRY DATE: APR 22, 2024@14:36:09 AUTHOR: MARISELA FLANAGAN COSIGNER: URGENCY: STATUS: COMPLETED ADVANCE DIRECTIVE NOTIFICATION: Patient was given written notification of the following rights: 1. Accept or refuse any medical treatment. 2. Complete a durable power of claims attorney for health care. 3. Complete a living will. ADVANCE DIRECTIVE SCREENING: Does patient have an Advance Directive? The patient has an Advance Directive. Does the patient wish to make any changes or revoke their current Advance Directive? Yes, the patient has an Advance Directive, but it is not in the medical record. was asked to obtain a copy for their medical record. /mindy/ [facility] Signed: 04/22/2024 14:36 MARISELA FLANAGAN ([facility]) Apr 22, 2024 02:29 PM PRIMARY CARE NURSI FLORENCIO NOTE: LOCAL TITLE: [facility] NURSING PROGRESS NOTE STANDARD TITLE: PRIMARY CARE NURSING NOTE DATE OF NOTE: APR 22, 2024@14:29 ENTRY DATE: APR 22, 2024@14:29:13 AUTHOR: MARISELA FLANAGAN EXP RADHAIGNER: URGENCY: STATUS: COMPLETED [facility] NURSING PROGRESS NOTE Has ADDENDA TYPE OF VISIT: Appointment Check In Type of appointment: In-person appointment REASON FOR VISIT: annual, sd ALLERGIES: ATORVASTATIN (Aug 17, 2015) SIMVASTATIN (Aug 17, 2015) VITAL SIGNS: Blood Pressure: 127/72 (03/12/2024 13:58) Pulse: 99 (04/22/2024 14:28) Respiration: 16 (04/22/2024 14:) Temperature: 97.2 F [36.2 C] (04/22/2024 14:27) Weight: 210.9 lb [95.66 kg] (04/22/2024 14:) Height: 67.323 in [171.0 cm] (04/22/2024:) BMI: 32.8 O2 Sat: 96% (04/22/2024:) Pain: 0 (04/22/2024:) PAIN SCREEN: Patient is not having significant pain that they wish to discuss with their provider today. Tobacco Use Screening: The patient is a former tobacco user. The patient quit fifteen or more years ago. Suicide Screen: C-SSRS Screening [place] Suicide Severity Rating Scale (C-SSRS) screener 1. Over the past month, have you wished you were or wished you could go to sleep and not wake up? No 2. Over the past month, have you had any actual thoughts of killing yourself? No 3. Over the past month, have you been thinking about how you might do this? Response not required due to responses to other questions. 4. Over the past month, have you had these thoughts and had some intention of acting on them? Response not required due to responses to other questions. 5. Over the past month, have you started to work out or worked out the details of how to kill yourself? Response not required due to responses to other questions. 6. If yes, at any time in the past month did you intend to carry out this plan? Response not required due to responses to other questions. 7. In your lifetime, have you ever done anything, started to do anything, or prepared to do anything to end your life (for example, collected pills, obtained a gun, gave away valuables, went to the roof but didn't jump)? No 8. If YES, was this within the past 3 months? Response not required due to responses to other questions. Depression Screening: Perform PHQ-2 A PHQ-2 screen was performed. The score was 0 which is a negative screen for depression. Over the past two weeks, how often have you been bothered by the following problems? 1. Little interest or pleasure in doing things Not at all 2. Feeling down, depressed, or hopeless Not at all Alcohol Use Screen (AUDIT-C): Alcohol Screen: SCREEN FOR ALCOHOL (AUDIT-C) An alcohol screening test (AUDIT-C) was positive (score=5). 1. How often did you have a drink containing alcohol in the past year? Consider a drink to be a 12 ounce can or bottle of regular beer, 8 ounces of malt liquor, a 5 ounce glass of table wine, or a 1.5 ounce shot of liquor (like scotch, gin, or vodka). Two to three times per week 2. How many drinks containing alcohol did you have on a typical day when you were drinking in the past year? Three or four drinks 3. How often did you have six or more drinks on one occasion in the past year? Less than monthly PTSD Screening: PC-PTSD-5 A PTSD screening test (PC-PTSD-5) was negative (score=0). IN THE PAST MONTH, have you ever had any experience that was so frightening, horrible or traumatic. For example: A serious accident or fire a physical or sexual assault or abuse An earthquake or flood A war Seeing someone be killed or seriously injured Having a loved one through homicide or suicide 1. Have you ever experienced this kind of event? NO 2. Had nightmares about the event(s) or thought about the event(s) when you did not want to? Response not required due to responses to other questions. 3. Tried hard not to think about the event(s) or went out of your way to avoid situations that reminded you of the event(s)? Response not required due to responses to other questions. 4. Been constantly on guard, watchful, or easily startled? Response not required due to responses to other questions. 5. [place] numb or detached from people, activities, or your surroundings? Response not required due to responses to other questions. 6. [place] guilty or unable to stop blaming yourself or others for the event(s) or any problems the event(s) may have caused? Response not required due to responses to other questions. Nursing Annual Screening: Whole Health Screen is due OR due soon (within 90 days). Whole Health Screening Why is addressing your overall health important to you? I want to feel better. I wish I didn't have COPD. What do you want your health for (why do you want to be healthy)? You can do more things. Fall History Screen During the past 12 months, have you had any falls? Patient does not report any falls in the past 12 months. MEDICATIONS: Patient does not have an active prescription for one of the following medications: Antihypertensives, Antidepressants, Antipsychotics, Diuretics, or Opioid Analgesics (Contolled Substance medications used for pain). Script Talk Screen Are you able to read your prescription bottles with your glasses, magnifiers or other aids? Yes or patient not taking any prescriptions. Skin Screen Patient reports any current pressure ulcers, a history of pressure ulcers, or a wound from a emergency medical service coordinator or Patient is bed-confined or a wheelchair-user or Patient requires assistance to transfer/change position No, Skin Screen is Negative Home Abuse/Violence Screen Is your home free of abuse and violence? Yes MOVE! Program Screen Body Mass Index (BMI)= 32.8 [place]: Collection DT Specimen Test Name Result Units Ref Range 10/24/2023 12:13 BLOOD !! HEMOGLOBIN A1C 6.5 H % 4.0 - 6.0 !! Indicates COMMENTS AVAILABLE...Refer to Interim Lab Report. [place] Hgb A1C: No data available [place] Hgb A1C: No data available Point of Care Hgb A1C: POC HGB A1C____ Outpatient Nutrition Screen Body Mass Index (BMI)= 32.8 [place]: Collection DT Specimen Test Name Result Units Ref Range 10/24/2023 12:13 BLOOD !! HEMOGLOBIN A1C 6.5 H % 4.0 - 6.0 !! Indicates COMMENTS AVAILABLE...Refer to Interim Lab Report. [place] Hgb A1C: No data available [place] Hgb A1C: No data available Point of Care Hgb A1C: POC HGB A1C____ Is patient's BMI less than 18.5? No Does patient have swallowing, coughing, or chewing problems affecting oral intake? No Has patient experienced unplanned weight loss or gain greater than 10 pounds over the last 2 months? No Is patient's Hgb A1C (Glycosylated Hemoglobin) greater than 9.5? Information not available Is patient receiving Total Parenteral Nutrition (TPN) or Tube Feedings? No Patient Health Education Screen BARRIERS/SPECIAL NEEDS: No barriers identified PREFERRED STYLE OF LEARNING: Listening Reading Client Assistive Service (MAZIN) Screen Does the patient require assistance with outpatient visit? No /es/ MARISELA FLANAGAN [facility] Signed: 04/22/2024 14:35 04/22/2024 ADDENDUM STATUS: COMPLETED PAVE Foot Check: A complete foot check was completed at this encounter. VISUAL INSPECTION: Includes inspection for skin breaks, deformity, erythema, trauma, pallor on elevation, dependent rubor, nail deformities, extensive callus and pitting edema. Visual exam results: Normal PEDAL PULSES: Includes palpation of dorsalis and posterior tibial pulses and signs/symptoms of vascular compromise like pain, pallor, parasthesia or paralysis. Present (even if diminished) SENSORY CHECK: Includes 10 gram Monofilament ([place]-Marisol) test of sensation. Intact (Greater than or equal to 80% of sites checked) Abnormal (Less than 80% of sites checked): Intact LOW-RISK: LOW RISK INFORMATION PROVIDED: 1. Advised patient not to walk barefoot. 2. Explained the importance of daily foot checks for changes. 3. Stressed the importance of daily foot hygiene, including bathing and complete drying. The patient verbalized understanding and was offered a detailed handout on diabetic foot care. /es/ MARISELA FLANAGAN [facility] Signed: 04/22/2024 14:53 MARISELA FLANAGAN ([facility])
--- OUTSIDE RECORDS SUMMARY | 2024-06-08 10:51 | XMS_ITS | Encounter Summary ---
Author Name [facility] Address [address] [place] [id number] Care Team Providers Care Superintendent [employer] Name Role Phone HERONCHEYALESHIA Primary Care Provider Unavailabl e Insurance Providers: [...] Name Patient's Relationship to Policy Colbert [employer]MANA [facility] ([facility]) MEDICARE ADVANTAGE [facility] ([facility]) Jul 09, 2022 [id number] DARIUS TIJERINA PATIENT [employer] [facility] ([facility]) MEDICARE ADVANTAGE [facility] ([facility]) Jul 09, 2022 [id number] DARIUS TIJERINA PATIENT MEDICA [facility] ([facility]) MEDICARE ADVANTAGE [facility] ([facility]) Jul 09, 2018 [id number] [phone] DARIUS TIJERINA PATIENT MEDICARE (WNR) MEDICARE (M) PART A Aug 09, 2011 PART A [id number] [phone] TIJERINADARIUS PATIENT MEDICARE (WNR) MEDICARE (M) PART B Aug 09, 2011 PART B [id number] [phone] DARIUS TIJERINA PATIENT Selected Encounter This section includes the information on record at [place] for the Encounter. Date/Time Encounter Type Encounter Description Reason Pro vider Source Mar 19, 2024 12:00 AM Outpatient Encounter EVENT (HISTORICAL) IHE Encounter Template Text not used by [place] Plan of Treatment: Future Appointments (+ 6 months) and Future Tests (+/- 45 days) The Plan of Treatment section includes future care activities for the patient from all [place] treatmentfacilities. This section includes future appointments and future orders which are active, pending or scheduled. Future Appointments This section includes appointments that were scheduled to occur 6 months from the date of the Encounter, up to a maximum of 20 appointments. The data comes from all [place] treatment facilities. Appointment Date/Time Appointment Type Appointme nt Facility Name Mar 28, 2024 09:30 AM AMBULATORY - REHAB MEDICIN E [facility] Apr 02, 2024 02:00 [facility] Apr 11, 2024 01:00 PM AMBULATORY - NONE [facility] Apr 22, 2024 02:30 PM AMBULATORY - MEDICINE [facility] May 12, 2024 12:45 PM AMBULATORY - NONE [facility] Jun 12, 2024 12:30 PM [facility] Jun 12, 2024 01:30 PM AMBULATORY - MEDICINE [facility] Lab Results: +/- 30 days of the encounter This section includes the Chemistry and Hematology Lab Results on record with [place] for the patient. Radiology Reports and Pathology Reports are provided separately, in subsequent sections. Lab Results This section contains the Chemistry/Hematology Results that were resulted 30 days before or 30 daysafter the date of the Encounter. Date/Time Source Result Type Result - Unit Interpretation Reference Range Comment Mar 12, 2024 01:12 PM [facility] KAPPA/LAMBDA LC FREE,RATIO Specimen Type: SERUM Comment: [...] therapy of these disorders. Test Performed by [facility], [facility], [address] [place] [address] Robert Swift M.D., Ph.D., Director of Laboratories , CLIA [id number] Ordering Provider: JANE SALGADO Report Released Date/Time: Dec 19, 2023 02:29 PM Reporting Lab: [facility] [id number] Performing Lab: [address] .KAPPA LT CHAIN,FREE 15.5 mg/L 3.3-19.4 .LAMBDA LC,FREE 31.8 mg/L H 5.7-26.3 .KAPPA/LAMBDA, FREE 0.49 0.26-1.65 Mar 12, 2024 01:12 PM [facility] ELP/IMMFIX,SERUM PANEL Specimen Type: SERUM Comment: Peak(s) too small to quantitate. Ordering Provider: JANE SALGADO Report Released Date/Time: Dec 19, 2023 02:29 PM Reporting Lab: [facility] [id number] Performing Lab: [facility] [id number] PROTEIN,TOTAL 6.3 g/dL L 6.4-8.3 .IDENTIFICATIO N 1 IgA lambda .ALBUMIN FRACTION 4.18 g/dL 3.66-4.78 .ALPHA 1 FRACTION 0.28 g/dL 0.14-0.38 .ALPHA 2 FRACTION 0.81 g/dL 0.50-0.90 .BETA 1 FRACTION 0.40 g/dL 0.33-0.55 .BETA 2 FRACTION 0.34 g/dL 0.20-0.52 .GAMMA FRACTION 0.30 g/dL L 0.58-1.72 .TOTAL PROTEIN 6.3 g/dL 6.0-8.3 .INTERPRETATIO N MONOCLONAL Mar 12, 2024 01:12 PM [facility] TSH W/REFLEX TO FREE T4 Specimen Type: PLASMA Comment: Automated Differential Performed Ordering Provider: JANE SALGADO Report Released Date/Time: Dec 19, 2023 02:29 PM Reporting Lab: [facility] [id number] Performing Lab: [facility] [id number] TSH 0.79 u[IU]/mL 0.35-4.94 Mar 12, 2024 01:12 PM [facility] URIC ACID Specimen Type: PLASMA No comment entered. Ordering Provider: JANE SALGADO Report Released Date/Time: Dec 19, 2023 02:29 PM Reporting Lab: [facility] [id number] Performing Lab: [facility] [address] URIC ACID 8.2 mg/dL H 3.7-7.7 Mar 12, 2024 01:12 PM [facility] LD,TOTAL Specimen Type: PLASMA No comment entered. Ordering Provider: JANE SALGADO Report Released Date/Time: Dec 19, 2023 02:29 PM Reporting Lab: [facility] [phone] Performing Lab: [facility] [phone] LD,TOTAL 133 U/L 125-220 Mar 12, 2024 01:12 PM [facility] COMPREHENSIVE METABOLIC PANEL+MG Specimen Type: PLASMA Comment: Automated Differential Performed Ordering Provider: JANE SALGADO Report Released Date/Time: Dec 19, 2023 02:29 PM Reporting Lab: [facility] [id number] Performing Lab: [facility] [phone] CREATININE 1.7 mg/dL H 0.7-1.2 UREA NITROGEN [...] L >60 Mar 12, 2024 01:12 PM [facility] CBC & DIFF Specimen Type: BLOOD Comment: Automated Differential Performed Ordering Provider: JANE SALGADO Report Released Date/Time: Dec 19, 2023 02:29 PM Reporting Lab: [facility] [id number] Performing Lab: [facility] [phone] WBC 3.7 L 4.0-11.0 RBC 4.00 L [...] PRO) 1.1 ABS IMMATURE GRAN 0.0 0-0.1 Immunizations: All administered on the encounter date This section contains immunizations associated to the Encounter. Immunization Series Date Issued Reaction Comments COVID-19 (PFIZER), MRNA, LNP -S, PF, ANGE-SUCROSE, 30 MCG/0.3 ML (AGES 12+ YEARS) Mar 19, 2024 INFLUENZA, HIGH-DOSE, TRIVALENT, PF Mar 19
--- OUTSIDE RECORDS SUMMARY | 2024-06-08 10:52 | XMS_ITS | Clinical Summary ---
Author Organization [facility] Address [place], [place] [address] Care Team Providers Care Boiler House Supervisor Name Role Phone [place] Primary Care Provider [phone] Allergies No known active allergies Medications Medication Sig Dispensed Refills Start Date End Date Status Ferrous Gluconate 325 mg (36 mg iron) tablet Take 325 mg by mouth 3 times daily. Active lisinopril-hydrochloro thiazide 20-12.5 mg tablet (PRINIZIDE) Take 1 tablet by mouth once daily. Active Mometasone (ASMANEX TWISTHALER) 220 mcg (120 doses) inhaler Inhale by mouth once daily. Active metFORMIN (GLUCOPHAGE) 1,000 mg tablet Take 1,000 mg by mouth 2 times daily with meals. Active OMEGA-3S/DHA/EPA/FISH OIL (OMEGA 3 ORAL) Take 1 capsule by mouth 2 times daily. Active loratadine (CLARITIN) 10 mg tablet Take 10 mg by mouth once daily. Active NAPROXEN ORAL Take by mouth. Active ALBUTEROL INHL Inhale by mouth. Acti ve aspirin (ECOTRIN) 81 mg enteric coated tablet Take 81 mg by mouth once daily with a meal. Active Immunizations Name Administration Dates Next Due [...] 115 05/08/2021 1:07 PM CDT Temperature 37.1 C (98.7 F) 05/08/2021 1:07 PM CDT Respiratory Rate 22 05/08/2021 1:07 PM CDT Oxygen Saturation 95% 05/08/2021 1:07 PM CDT Inhaled Oxygen Concentration - - Weight 99.8 kg (220 lb) 05/08/2021 1:07 PM CDT Height 170.2 cm (5' 7) 02/14/2020 12:02 PM CDT Body Mass Index 34.46 02/14/2020 12:02 PM CDT Plan of Treatment Health Maintenance Due Date Last Done Comments Depression screening for age 12+ 1958 BMI (ht and wt on same day) for age 18+ 1964 Hepatitis C screening for age 18-79 1964 Zoster (shingles) series for age 50+ (1 of 2) 08/30/18 97 Pneumococcal series for age 65+ (1 of 1 - PCV) 012 RSV vaccine for adults or pr egnancy (1 - 1-dose 75+ series) 2021 COVID-19 vaccine series ( - 2023- season) 4 Influenza for age 65+ 03/09/2024 Tetanus booster 05/08/2031 05/08/2021 Tdap Completed 05/08/2021 Insurance Payer Benefit Plan / Group Subscriber ID Effective Dates Phone Address Type MEDICARE PART B - HB USE ONLY MEDICARE PART B HB ONLY [id number] 2011-Presen t ATTN: CLAIMS [address] [place] [address] MEDICARE PART A - HB USE ONLY MEDICARE PART A HB ONLY [id number] 2011-Presen t ATTN: CLAIMS [address] [place] [address] MEDICARE PART B - HB USE ONLY MEDICARE PART B HB ONLY [id number] 2011-Presen t ATTN: CLAIMS [address] [place] [address] [facility] MR [facility] MR [id number] 2020-Presen t [address] [address] [place] [address] Advance Directives * Full Code (Latest Code Status on File) Date Activated Date Inactivated Comments 01/28/2015 9:26 AM 01/28/2015 3:59 PM Care Teams Boiler House Supervisor Relationship Specialty Start Date End Date [place] [address] [address] PCP - General 01/15/20
--- OUTSIDE RECORDS SUMMARY | 2024-06-08 10:52 | XMS_ITS | Encounter Summary ---
Author Name [facility] [place] [facility] [place] Address [address] [place] [id number] Care Team Providers Care Plastics Patternmaker Name Role Phone ALESHIA SHELBY Primary Care [...] Name Patient's Relationship to Policy Colbert [facility]) MEDICARE ADVANTAGE [facility]) Jul 09, 2022 [id number] [phone] DARIUS TIJERINA PATIENT [employer]MANA [facility] MEDICARE ADVANTAGE [facility]) Jul 09, 2022 [id number] DARIUS TIJERINA PATIENT MEDICA [facility]) MEDICARE ADVANTAGE [facility]) Jul 09, 2018 [id number] [phone] DARIUS TIJERINA PATIENT MEDICARE ([facility]) MEDICARE ([place]) PART A Aug 09, 2011 PART A [id number] [phone] DARIUS TIJERINA PATIENT MEDICARE ([facility]) MEDICARE (M) PART B Aug 09, 2011 PART B [id number] TIJERINA DARIUS PATIENT Selected Encounter This section includes the information on record at [place] for the Encounter. Date/Time Encounter Type Encounter Description Reason Provider Source May 13, 2024 10:49 AM Outpatient Encounter CHEMOTHERAPY PROC. [facility]. FERNANDA FITZGERALD [facility] Encounter Template Text not used by [place] Plan of Treatment: Future Appointments (+ 6 months) and Future Tests (+/- 45 days) The Plan of Treatment section includes future care activities for the patient from all [place] [facility] This section includes future appointments and future orders which are active, pending or scheduled. Future Appointments This section includes appointments that were scheduled to occur 6 months from the date of the Encounter, up to a maximum of 20 appointments. The data comes from all [place] treatment [facility]. Appointment Date/Time Appointment Type Appointme nt Facility Name Jun 12, 2024 12:30 PM [facility] Jun 12, 2024 01:30 PM AMBULATORY - MEDICINE [facility] Active, Pending, and Scheduled Orders This section includes a listing of several types of active, pending, and scheduled orders, including clinic medications orders, diagnostic test orders, procedure orders and consult orders; where the start date of the order is 45 days before the date of the Encounter or 45 days after the date of theEncounter. The data comes from all [facility]. Test Date/Time Test Type Test Details Facility Name Jun 11, 2024 12:00 AM Laboratory - Chemistry Order CBC & DIFF BLOOD [facility] Jun 11, 2024 12:00 AM Laboratory - Chemistry Order COMPREHENSIVE METABOLIC PANEL+MG PLASMA [facility] Jun 11, 2024 12:00 AM Laboratory - Chemistry Order TOTAL IMMUNOGLOB (IGA,IGG,IGM) PLASMA [facility] Jun 11, 2024 12:00 AM Laboratory - Chemistry Order PHOSPHORUS PLASMA [facility] Jun 11, 2024 12:00 AM Laboratory - Chemistry Order ELP/IMMFIX,SERUM PANEL [facility] Jun 11, 2024 12:00 AM Laboratory - Chemistry Order KAPPA/LAMBDA LC FREE,RATIO [facility] Jun 11, 2024 12:00 AM Laboratory - Chemistry Order URIC ACID PLASMA [facility] Jun 11, 2024 12:00 AM Laboratory - Chemistry Order LD,TOTAL PLASMA [facility] Jun 11, 2024 12:00 AM Laboratory - Chemistry Order TSH W/REFLEX TO FREE T4 PLASMA [facility] ([facility]) Jun 11, 2024 12:00 AM Laboratory - Chemistry Order HEMOGLOBIN A1C BLOOD [facility] ([facility]) Jun 11, 2024 12:00 AM Laboratory - Chemistry Order LIPID PANEL,NON-FASTING PLASMA [facility] ([facility]) Jun 11, 2024 12:00 AM Laboratory - Chemistry Order ALBUMIN/CREATININE RATIO URINE URINE [facility] ([facility])
[2024-06-08 11:00] LABS: Basophils Percent Auto 0.4 % (0.0-3.0); Eosinophils Percent Auto 7.9 % (0.0-7.0); Hematocrit 39.9 % (37.0-53.0); Hemoglobin* 12.9 gm/dL (13.5-17.5); Immature Granulocytes Pct Auto 1.1 %; Lymphocytes Percent Auto 13.5 % (20-44); Mean Corpuscular HGB Conc 32 gm/dL (32-36); Mean Corpuscular Hemoglobin 32 pg (26-34); Mean Corpuscular Volume 97 fL (80-100); Monocytes Percent Auto 11.9 % (0.0-11.0); Neutrophils Percent Auto 65.2 % (42.0-72.0); Platelet Count* 123 K/uL (140-440); RDW Coefficient of Variation % 14.8 % (11.5-15.5); White Blood Count* 4.45 K/uL (4.50-11.00)
[2024-06-08 11:12] LABS: Chloride* 109 mmol/L (96-114)
[2024-06-08 11:13] LABS: Potassium* 4.1 mmol/L (3.6-5.1); Slide Review Reflex No; Sodium* 137 mmol/L (135-149)
[2024-06-08 11:14] LABS: PCR FLU A Negative PCR FLU A (Negative); PCR FLU B Negative PCR FLU B (Negative); PCR RSV Negative PCR RSV (Negative); SARS PCR* Negative SARS-CoV-2 (Negative)
[2024-06-08 11:15] LABS: Creatinine* 1.7 mg/dL (0.5-1.5); Estimated Glomerular Filt Rate 41 ml/min
[2024-06-08 11:16] LABS: Anion Gap 10 mEq/L (7-15); Blood Urea Nitrogen* 23 mg/dL (7-30); Carbon Dioxide* 18 mmol/L (20-32)
[2024-06-08 11:17] LABS: Calcium* 9.4 mg/dL (8.4-10.6); Glucose* 131 mg/dL (60-115)
[2024-06-08 11:19] LABS: C Reactive Protein* 2.6 mg/dL (0.5-1.0)
[2024-06-08 12:05] VITALS: BP 135/68; PULSE 102; RESP 22; O2SAT 92
== END 2024-06-08 12:11 | disposition home or self-care (01) ==
PROVIDERS: Emergency Provider Family Medicine; PCP Nurse Practitioner Family
DX: J44.1 Chronic obstructive pulmonary disease with (acute) exacerbation (principal)
CPT/HCPCS: 36415; 71046; 80048; 85025; 86140; 87631; 94761; 99284; J7512

== ENCOUNTER 2024-07-30 06:30 | Inpatient (IN) | payer OTHER, SELFPAY ==
[2024-07-30] VITALS (34 sets, daily range): BP systolic 99–161; BP diastolic 60–117; PULSE 93–108; RESP 24–40; TEMP 36.4–36.8; O2SAT 91–100; BMI 26.6; BMI 31.9
--- OUTSIDE RECORDS SUMMARY | 2024-07-30 06:32 | XMS_ITS | Clinical Summary ---
Author Organization [facility] Address [address] [place] [address] Care Team Providers Care Claim Examiner Name Role Phone None Reported, Pcp Primary Care Provider Unavail able Source Comments Patient records contain information from all sites at [facility]. For routine questions regarding patient records, call [phone] during business hours, M-F 8:00 AM - 5:00 PM Central Time. Record requests for emergency care only can be directed to [phone] at any time.[facility] Allergies Active Allergy Reactions Criticality Noted Date Comments Atorvastatin Other (see comments) 08/17/2015 Simvastatin Other (see comments) 08/17/2015 Medications [address] tablet Take 81 mg by mouth daily. 010 Active docosahexanoic acid/epa (FISH OIL ORAL) Take 1 capsule by mouth daily. 008 Active ascorbic acid, vitamin C, (vitamin C) 100 mg tablet Take 100 mg by mouth daily. Active lenalidomide (Revlimid) 10 mg capsule Take 10 mg by mouth daily. Take 1 tablet daily on days 1-21, then off 7 days Active cyanocobalamin (Vitamin B-12) 1,000 mcg tablet Take 1 tablet by mouth daily. 024 Active empagliflozin (Jardiance) 25 mg tablet Take 12.5 mg by mouth daily before morning meal. 024 Active mometasone (Asmanex HFA) 100 mcg/actuation (120) inhaler Inhale 2 puffs 2 (two) times a day. 024 Active tiotropium-olo dateroL (Stiolto Respimat) 2.5-2.5 mcg/actuation inhaler Inhale 2 puffs daily. Active cetirizine (ZyrTEC) 10 mg tablet Take 10 mg by mouth at bedtime as needed for allergies. 024 Active cholecalcifero l, vitamin D3, 25 mcg (1,000 Unit) tablet Take 1 tablet by mouth daily. 018 Active glipiZIDE (GlucotroL) 10 mg tablet Take 10 mg by mouth 2 (two) times a day before morning and evening meals. Active magnesium oxide 420 mg tablet Take 420 mg by mouth 2 (two) times a day. 024 Active ipratropium-al buteroL (DuoNeb) 0.5-2.5 mg/3 mL nebulizer solution Inhale 3 mL by nebulization 4 (four) times a day as needed for wheezing or shortness of breath. Active multivitamin tablet Take 1 tablet by mouth daily. Active albuterol 90 mcg/actuation inhaler Inhale 2 puffs every 4 (four) hours as needed for wheezing or shortness of breath. Active dexAMETHasone (Decadron) 4 mg tablet Take 20 mg by mouth once a week. On Tuesdays Active potassium-sodi um-phosphate (Phos-NaK) 280-160-250 mg per packet Take 1 packet by mouth daily with midday meal. Active acetaminophen (TylenoL) 500 mg tablet Take 2 tablets (1,000 mg total) by mouth 3 (three) times a day. For pain relief. May take as needed as pain improves. Do not exceed 3000 mg of acetaminophen (Tylenol) from all sources in 24 hours. 025 Active neomycin-bacit racin-polymyxi n (Neosporin) 3.5 mg-400 unit-5,000 unit/gram ointment Apply 1 Application topically 2 (two) times a day. Apply to nasal and upper extremity abrasions. 14 g 025 Active lidocaine (Xylocaine) 5 % ointment Apply 1 Application topically 3 (three) times a day as needed for pain. Apply to affected area(s) for pain relief. 35 g 025 Active metFORMIN (Glucophage) 1,000 mg tablet Take 1 tablet (1,000 mg total) by mouth daily. Hold metformin until evaluated by PCP in the setting of JOSTIN. PCP to obtain BMP 1-2 days to ensure continued JOSTIN resolution and to resume metformin if and when appropriate 025 Active albuterol (PROVENTIL HFA,VENTOLIN HFA) 90 mcg/actuation inhaler Take 1-2 puffs by mouth every 4 (four) hours as needed for wheezing or shortness of breath. 008 2024 Discontinued(E rror) naproxen sodium (ALEVE ORAL) Take 2 tablets by mouth as needed. 008 2024 Discontinued metformin HCl (METFORMIN ORAL) Take 1,000 mg by mouth daily. 010 2024 Discontinued budesonide-for moterol (SYMBICORT) 160-4.5 mcg/actuation inhaler Inhale 2 puffs 2 (two) times a day. Rinse mouth with water after use to reduce aftertaste and incidence of candidiasis. Do not swallow. 2024 Discontinued tiotropium (SPIRIVA) 18 mcg inhalation capsule Inhale 1 capsule daily. 2024 Discontinued cyclobenzaprin e (FLEXERIL) 10 mg tabletIndicati ons:Pain Low Back Unspecified Take 1 tablet (10 mg total) by mouth at bedtime as needed for muscle spasms. 30 tablet 018 2024 Discontinued clobetasoL (TEMOVATE) 0.05 % ointment 020 2024 Discontinued docosahexaenoi c acid-epa (fish oil) 120-180 mg capsule Take 1 capsule by mouth daily. 008 2024 Discontinued Active Problems Problem Noted Date Diagnosed Date Alcohol Abuse With Intoxication Unspecified 07/09 Repeated Falls 07/19/2024 Multiple Myeloma In Remission 07/19/2024 Chronic Kidney Disease (CKD) , Stage 3b Glomerular Filtration Rate (GFR) 30 To 44 07/19/2024 Chronic Obstructive Pulmonary Disease Exacerbati on 07/19/2024 Fracture Rib Multiple Closed Initial Right 07/19 Alcohol Moderate Or Severe U se Disorder (Dependence) Uncomplicated 07/19/2024 Hyponatremia 07/19/2024 Obesity Body Mass Index 30-39.9 Adult 07/19/2024 Osteopenia 07/19/2024 Polyp Colon 12/04/2013 Rhinitis Allergic 10/25/2009 Lesion Nerve Ulnar 10/25/2009 Obesity NOS 10/25/2009 Diabetes Mellitus Type 2 08/07/2007 Allergy Seasonal 03/05/2006 Dependence Nicotine 12/21/2005 Encounters Date Type Department Care Team Description 07/23/2024 9:00 AM INVESTMENT BANKING ANALYST Office Visit Department of [facility] Internal Medicine in [address] [phone] Nidia Avilez P.A.-C. Regan, Hannah R, P.A.-C. Failure Renal Acute (Acute Kidney Injury) (HCC) 07/23/[address] [facility] Internal Medicine in [address] [phone] Mami Momin P.A.-C. 07/23/[address] Clinical [address] of [facility] Internal Medicine in [address] [phone] Mami Momin P.A.-C. 07/22/2024 1:35 PM INVESTMENT BANKING ANALYST - 07/22/2024 11:59 PM INVESTMENT BANKING ANALYST Hospital Encounter Department of Laboratory Medicine and Pathology, [facility] in [place], [place] [address] [place] [phone] Viviane Jeffers APRN, C.N.P., D.N.P. Failure Renal Acute (Acute Kidney Injury) (HCC) Discharge Disposition: Home or Self Care 07/22/[address] [facility] Internal Medicine in [address] [phone] Nidia Avilez P.AYvesC. 07/21/2024 Clinical Communication [facility] [address] [place] [phone] Viviane Jeffers APRN, C.N.P., D.N.P. 07/18/2024 11:50 PM INVESTMENT BANKING ANALYST - 07/20/2024 2:50 PM INVESTMENT BANKING ANALYST Hospital Encounter [facility], [facility], Fourth Floor [address] [place] [phone] Selvin Kahn D.O. Alcohol Abuse With Intoxication Unspecified (HCC) (Primary Dx); Repeated Falls; Decline Functional Status [R53.81] Discharge Disposition: Home or Self Care from Last 3 Months Immunizations Immunization Administration Dates Next Due HZV (ZOSTAVAX) 10/10/2007 Influenza Split 04/23/1996 PPSV23 10/10/2007 Td Preservative Free (TENIVAC, DECAVAC) 12/22/19 06 Td, (Adult) Unspecified 1991 influenza trivalent vaccine (6 months and older) (PF) 05/22/2007 Social History Tobacco Use Types Packs/Day Years Used Date Smoking Tobacco: Former Smokeless Tobacco: Never Alcohol Use Standard Drinks/Week Comments Yes 0 (1 standard drink = 0.6 oz pur e alcohol) [facility] Utilities Answer Date Recorded In the past 12 months [facility] gas, oil, or water Yast threatened to shut off services in your home? No 07/19/2024 Humiliation, Afraid, Rape, and Kick questionnair e Answer Date Recorded Within the last year, have y ou been afraid of your partner or ex-partner? No 07/19/2024 Within the last year, have y ou been humiliated or emotionally abused in other ways by your partner or ex-partner? No Within the last year, have y ou been kicked, hit, slapped, or otherwise physically hurt by your partner or ex-partner? No 07/19/2024 Within the last year, have y ou been raped or forced to have any kind of sexual activity by your partner or ex-partner? No 07/19/2024 Hunger Vital Sign Answer Date Recorded Within the past 12 months, y ou worried that your food would run out before you got the money to buy more. Never true 07/19/19 25 Within the past 12 months, t he food you bought just didn't last and you didn't have money to get more. Never true 07/19/2024 PRAPARE - Transportation Answer Date Re corded In the past 12 months, has l ack of transportation kept you from medical appointments or from getting medications? No 07/09 In the past 12 months, has l ack of transportation kept you from meetings, work, or from getting things needed for daily living? No 07/19/2024 Nutrition Answer Date Recorded Nutrition: EVOO Fat Source 13 04/04 Nutrition: Servings of Fruits/Vegetables per Day Not on file 04/04/2020 Dental Answer Date Recorded Dental: Regular Dentist Unknown 08/30/19 21 Housing Stability Answer Date Recorded What is your living situation today? I have a [facility] place to live 07/19/2024 Sex and Gender Information Value Date Recorded Sex Assigned at Not on file Legal Sex Male 6:12 AM INVESTMENT BANKING ANALYST Gender Identity Not on file Sexual Orientation Not on file Last Filed Vital Signs Vital Sign Reading Time Taken Comments Blood Pressure 109/64 07/20/2024 6:05 AM INVESTMENT BANKING ANALYST Pulse 82 07/20/2024 6:05 AM INVESTMENT BANKING ANALYST Temperature 36.6 C (97.9 F) 07/20/2024 6:05 AM INVESTMENT BANKING ANALYST Respiratory Rate 16 07/20/2024 6:05 AM INVESTMENT BANKING ANALYST Oxygen Saturation 92% 07/20/2024 6:05 AM INVESTMENT BANKING ANALYST Inhaled Oxygen Concentration - - Weight 95.2 kg (209 lb 14.1 oz) 07/19/2024 5:00 AM INVESTMENT BANKING ANALYST Height 172.7 cm (5' 8) 07/19/2024 5:00 AM INVESTMENT BANKING ANALYST Body Mass Index 31.91 07/19/2024 5:00 AM INVESTMENT BANKING ANALYST Plan of Treatment Upcoming Encounters Date Type Department Care Team (Late st Contact Info) Description 07/31/2024 11:50 AM INVESTMENT BANKING ANALYST Appointment Department of Laboratory Medicine and Pathology, [place], [place] [address] [place] [phone] Mami Momin, PLakeshiaA.-CLakeshia [address] [place] [phone] 07/31/2024 12:00 PM INVESTMENT BANKING ANALYST Appointment Department of Laboratory Medicine and Pathology, [place], [place] [address] [place] [phone] Mami Momin P.A.-CLakeshia [address] [place] [phone] 07/31/2024 3:30 PM INVESTMENT BANKING ANALYST Office Visit Department of Hospital Internal Medicine in [place], [place] [address] [place] [phone] Mami Momin P.A.-C. [address] [place] [phone] Health Maintenance Due Date Last Done Comments Diabetic Office Visit with Foot Exam 1946 Dilated Eye Exam 1946 Hepatitis C Screening 1945 Office Visit for Blood Pressure Check / Re-check 1946 Visit: Chronic Disease, age 18+ 1945 Visit: Medicare Annual Wellness 1945 Hepatitis B Vaccines (1 of 3 - Risk 3-dose series) 2006 Pneumococcal vaccine (50+ years) (3 of 3 - PPSV23, PCV20 or PCV21) 04/09/2015 02/12/2015, 01/02/2013, 10/10/2007, Additional history exists Urine Albumin 12/23/2015 12/22/2014 RSV vaccine - (32-36 weeks) or 60+ years (1 - 1-dose 75+ series) 2021 Depression Screening (Annual PHQ-2) 07/09/2024 Fall Risk Screen (Annual) 07/09/2024 Hemoglobin A1C 01/16/2025 07/19/2024, 12/22/2014 Creatinine Level (Kidney Function Test) 07/22/2025 07/22/2024, 07/20/2024, 07/19/2024, Additional history exists Potassium Level 07/22/2025 07/22/2024, 07/09, 07/19/2024, Additional history exists Sodium Level 07/22/2025 07/22/2024, 07/09, 07/19/2024, Additional history exists DTaP,Tdap,and Td Vaccines (4 - Td or Tdap) 05/08/2031 05/08/2021, 04/06/2017, 12/07/2006, Additional history exists Colonoscopy Discontinued 01/28/2015, 10/09, 01/18/2006 Colorectal Cancer Surveillance Discontinued Zoster Vaccines Completed 06/11/2023, 09/2022, 11/28/2011, Additional history exists COVID-19 Vaccine Completed 03/19/2024, 10/2022, 07/19/2022, Additional history exists Influenza Vaccine Completed 03/19/2024, , 03/30/2022, Additional history exists Abdominal Aortic Aneurysm (AAA) Screen Discontinued 07/19/2024 CT Colonography Discontinued Cologuard Discontinued HPV Vaccines Aged Out No longer eligi ble based on patient's age to complete this topic IPV Vaccines Aged Out No longer eligi ble based on patient's age to complete this topic Procedures Procedure Name Priority Date/Time Associated Diagnosis Comments BASIC METABOLIC PANEL, S/P Routine 07/22/2024 1:56 PM INVESTMENT BANKING ANALYST Failure Renal Acute (Acute Kidney Injury) (HCC) GLUCOSE POCT, B Routine 07/20/2024 11:56 AM INVESTMENT BANKING ANALYST PHOSPHORUS (INORGANIC), S Routine 07/20/2024 8:19 AM INVESTMENT BANKING ANALYST MAGNESIUM, S Routine 07/20/2024 8:19 AM INVESTMENT BANKING ANALYST CBC WITH DIFFERENTIAL, B Routine 07/20/2024 8:19 AM INVESTMENT BANKING ANALYST BASIC METABOLIC PANEL, S/P Routine 07/20/2024 8:19 AM INVESTMENT BANKING ANALYST GLUCOSE POCT, B Routine 07/20/2024 8:00 AM INVESTMENT BANKING ANALYST DX CHEST PORTABLE 1 VIEW RAD - Routine (most inpatients and all outpatients) 07/20/2024 7:44 AM INVESTMENT BANKING ANALYST GLUCOSE POCT, B Routine 07/19/2024 8:26 PM INVESTMENT BANKING ANALYST GLUCOSE POCT, B Routine 07/19/2024 5:29 PM INVESTMENT BANKING ANALYST DX FEMUR LEFT 2 VIEWS RAD - Routine (most inpatients and all outpatients) 07/19/2024 2:33 PM INVESTMENT BANKING ANALYST DX PELVIS 1-2 VIEWS RAD - Routine (most inpatients and all outpatients) 07/19/2024 2:33 PM INVESTMENT BANKING ANALYST DX CHEST AP OR PA AND LATERAL 2 VIEWS RAD - Routine (most inpatients and all outpatients) 07/19/2024 2:33 PM INVESTMENT BANKING ANALYST ELECTROPHORESIS, PROTEIN, RANDOM, U Routine 07/19/2024 1:39 PM INVESTMENT BANKING ANALYST GLUCOSE POCT, B Routine 07/19/2024 11:35 AM INVESTMENT BANKING ANALYST GLUCOSE POCT, B Routine 07/19/2024 8:10 [address] INVESTMENT BANKING ANALYST CT THORACIC AND LUMBAR SPINE BY RECONSTRUCTION RAD - Emergent (Fastest; for the most critically ill patients) 07/19/2024 2:56 [address] IN[address]STMENT BANKING ANALYST CT ABDOMEN PELVIS WITH IV CONTRAST RAD - Emergent (Fastest; for the most critically ill patients) 07/19/2024 2:56 AM INVESTMENT BANKING ANALYST CT CHEST WITH IV CONTRAST RAD - Emergent (Fastest; for the most critically ill patients) 07/19/2024 2:56 AM INVESTMENT BANKING ANALYST CT CERVICAL SPINE WITHOUT IV CONTRAST RAD - Emergent (Fastest; for the most critically ill patients) 07/19/2024 2:56 AM INVESTMENT BANKING ANALYST CT HEAD WITHOUT IV CONTRAST RAD - Emergent (Fastest; for the most critically ill patients) 07/19/2024 2:56 AM INVESTMENT BANKING ANALYST ETHANOL, S STAT 07/19/2024 12:32 AM INVESTMENT BANKING ANALYST HEPATIC FUNCTION PANEL, S STAT 07/19/2024 12:32 AM INVESTMENT BANKING ANALYST BASIC METABOLIC PANEL, S/P STAT 07/19/2024 12:32 AM INVESTMENT BANKING ANALYST CBC WITH DIFFERENTIAL, B STAT 07/19/2024 12:32 AM INVESTMENT BANKING ANALYST PHOSPHORUS (INORGANIC), S Routine 07/19/2024 12:25 AM INVESTMENT BANKING ANALYST MAGNESIUM, S Routine 07/19/2024 12:25 AM INVESTMENT BANKING ANALYST HEMOGLOBIN A1C, B Routine 07/19/2024 12:25 AM INVESTMENT BANKING ANALYST ECG STAT 07/19/2024 12:02 AM INVESTMENT BANKING ANALYST ALBUMIN, RANDOM, U Routine 12/22/2014 4: 10 PM CDT from Last 3 Months or Most Recently Relevant to Health Maintenance Results * (ABNORMAL) Basic Metabolic Panel (07/22/2024 1:56 PM INVESTMENT BANKING ANALYST) Only the most recent of3 resultswithin the time period is included. Potassium, S 4.1 3.6 - 5.2 mmol/L 07/22/2024 3:04 PM INVESTMENT BANKING ANALYST DTL Sodium, S 142 135 - 145 mmol/L 07/22/2024 3:04 PM INVESTMENT BANKING ANALYST DTL Chloride, S 106 98 - 107 mmol/L 07/22/2024 3:04 PM INVESTMENT BANKING ANALYST DTL Bicarbonate, S 23 22 - 29 mmol/L 07/22/2024 3:04 PM INVESTMENT BANKING ANALYST DTL Anion Gap 13 7 - 15 07/22/2024 3:04 PM INVESTMENT BANKING ANALYST DTL BUN (Blood Urea Nitrogen), S 23 8 - 24 mg/dL 07/22/2024 3:04 PM INVESTMENT BANKING ANALYST DTL Creatinine 1.76(H) 0.74 - 1.35 mg/dL 07/22/2024 3:04 PM INVESTMENT BANKING ANALYST DTL Estimated GFR (eGFR) 39(L) >=60 mL/min/BSA 07/22/2024 3:04 PM INVESTMENT BANKING ANALYST DTL Comment: Estimated GFR calculated using the 2020 CKD_EPI creatinine equation. Calcium, Total, S 9.2 8.8 - 10.2 mg/dL 07/22/2024 3:04 PM INVESTMENT BANKING ANALYST DTL Glucose, S 111 70 - 140 mg/dL 07/22/2024 3:04 PM INVESTMENT BANKING ANALYST DTL Blood (Blood, Venous) 07/22/2024 1:56 PM INVESTMENT BANKING ANALYST 07/22/2024 2:35 PM INVESTMENT BANKING ANALYST Viviane Jeffers APRN, C.N.P., D.N.P. LAB BLOOD ADD-ON Final Result Performing Organization Address [facility] de Phone Number [facility] [address] [place] [address], [facility] DTL [facility] [address] [place] [address] * (ABNORMAL) Glucose, POCT (07/20/2024 11:56 AM INVESTMENT BANKING ANALYST) Only the most recent of6 resultswithin the time period is included. Pathologist [facility] Glucose, POCT, B 220(H) 70 - 140 mg/dL 07/20/2024 12:00 PM INVESTMENT BANKING ANALYST PCLX Site Capillary 07/20/2024 12:00 PM INVESTMENT BANKING ANALYST PCLX Last Intake 2-3 hours 07/20/2024 12:00 PM INVESTMENT BANKING ANALYST PCLX Blood 07/20/2024 11:5 6 AM INVESTMENT BANKING ANALYST 07/20/2024 12:00 PM INVESTMENT BANKING ANALYST Unknown Provider LAB POCT ORDERABLES-MANUAL Lela l Result Performing Organization Address [facility] de Phone Number [facility] [address] [place] [address], [facility] PCLX [facility] [address] [place] [address] * (ABNORMAL) CBC with Differential, Blood (07/20/2024 8:19 AM INVESTMENT BANKING ANALYST) Only the most recent of2 resultswithin the time period is included. Hemoglobin 11.3(L) 13.2 - 16.6 g/dL 07/20/2024 9:04 AM INVESTMENT BANKING ANALYST DTL Hematocrit 33.7(L) 38.3 - 48.6 % 07/20/2024 9:04 AM INVESTMENT BANKING ANALYST DTL Erythrocytes 3.53(L) 4.35 - 5.65 x10(12)/L 07/20/2024 9:04 AM INVESTMENT BANKING ANALYST DTL MCV 95.5 78.2 - 97.9 fL 07/20/2024 9:04 AM INVESTMENT BANKING ANALYST DTL RBC Distrib Width 15.8(H) 11.8 - 14.5 % 07/20/2024 9:04 AM INVESTMENT BANKING ANALYST DTL Platelet Count 120(L) 135 - 317 x10(9)/L 07/20/2024 9:04 AM INVESTMENT BANKING ANALYST DTL Leukocytes 3.8 3.4 - 9.6 x10(9)/L 07/20/2024 9:04 AM INVESTMENT BANKING ANALYST DTL Neutrophils 2.33 1.56 - 6.45 x10(9)/L 07/20/2024 9:04 AM INVESTMENT BANKING ANALYST PM Lymphocytes 0.85(L) 0.95 - 3.07 x10(9)/L 07/20/2024 9:04 AM INVESTMENT BANKING ANALYST DTL Monocytes 0.49 0.26 - 0.81 x10(9)/L 07/20/2024 9:04 AM INVESTMENT BANKING ANALYST DTL Eosinophils 0.03 0.03 - 0.48 x10(9)/L 07/20/2024 9:04 AM INVESTMENT BANKING ANALYST DTL Basophils 0.05 0.01 - 0.08 x10(9)/L 07/20/2024 9:04 AM INVESTMENT BANKING ANALYST DTL Blood (Blood, Venous) 07/20/2024 8:19 AM INVESTMENT BANKING ANALYST 07/20/2024 8:52 AM INVESTMENT BANKING ANALYST Viviane Jeffers APRN, C.N.P., D.N.P. LAB BLOOD ADD-ON Final Result [facility] [address] [place] [address], [facility] DTL [facility] [address] [place], [place] [id number] [place] [address] [address] [place] [address] * Phosphorus Inorganic (07/20/2024 8:19 AM INVESTMENT BANKING ANALYST) Only the most recent of2 resultswithin the time period is included. Phosphorus (Inorganic), S 2.6 2.5 - 4.5 mg/dL 07/20/2024 9:24 AM INVESTMENT BANKING ANALYST DTL Blood (Blood, Venous) 07/20/2024 8:19 AM INVESTMENT BANKING ANALYST 07/20/2024 9:07 AM INVESTMENT BANKING ANALYST Zuleyma Howard APRN.N.P., D.N.P. LAB BLOOD ADD-ON Final Result Performing Organization Address City/[facility]/ZIP Co de Phone Number [facility] [address] [place] [address] * Magnesium (07/20/2024 8:19 AM INVESTMENT BANKING ANALYST) Only the most recent of2 resultswithin the time period is included. Magnesium, S 2.2 1.7 - 2.3 mg/dL 07/20/2024 9:24 AM INVESTMENT BANKING ANALYST DT Blood (Blood, Venous) 07/20/2024 8:19 AM INVESTMENT BANKING ANALYST 07/20/2024 9:07 AM INVESTMENT BANKING ANALYST Viviane Jeffers APRN, Zuleyma.N.P., D.N.P. LAB BLOOD ADD-ON Final Result Performing Organization Address City/[facility]/ZIP Co de Phone Number [facility] [address] [place] [address] * DX Chest Portable 1 View (07/20/2024 7:44 AM INVESTMENT BANKING ANALYST) Anatomical Region Laterality Modality Chest, Thoracic RST LOS, Tho racic ARZ LOS, Thoracic FLA LOS N/A Digital Radiography Impressions 07/20/2024 7:55 AM INVESTMENT BANKING ANALYST Expansile lesion with minimally displaced fracture in the lateral right sixth rib. Slight atelectasis left base. Chest otherwise negative. Narrative 07/20/2024 7:55 AM INVESTMENT BANKING ANALYST EXAM: DX CHEST PORTABLE 1 VIEW Procedure Note Ronaldo Martinez M.D. - 07/20/2024 EXAM: DX CHEST PORTABLE 1 VIEW IMPRESSION: Expansile lesion with minimally displaced fracture in the lateral rightsixth rib. Slight atelectasis left base. Chest otherwise negative. us Viviane Jeffers APRN, Zuleyma.N.P., D.N.P. [facility] Final Result * DX Pelvis 1-2 Views (07/19/2024 2:33 PM INVESTMENT BANKING ANALYST) Anatomical Region Laterality Modality Pelvis, Musculoskeletal RST LOS, Musculoskeletal ARZ LOS, Muskuloskeletal FLA LOS N/A Digital Radiography Impressions 07/19/2024 2:48 PM INVESTMENT BANKING ANALYST Diffuse demineralization. No definite acute displaced fracture or traumatic misalignment. Excreted contrast in the bladder. Left iliac lucent lesion better characterized on same day CT. Narrative 07/19/2024 2:48 PM INVESTMENT BANKING ANALYST EXAM: DX PELVIS 1-2 VIEWS Procedure Note Tre Rodriguez D.O. - 07/19/2024 EXAM: DX PELVIS 1-2 VIEWS IMPRESSION: Diffuse demineralization. No definite acute displaced fracture ortraumatic misalignment. Excreted contrast in the bladder. Left iliaclucent lesion better characterized on same day CT. Viviane Jeffers APRN, Zuleyma.N.P., D.N.P. [facility] IMAGING PROCEDURES Final Result * DX Femur Left 2 Views (07/19/2024 2:33 PM INVESTMENT BANKING ANALYST) Anatomical Region Laterality Modality Lower Extremity, Femur, Musc uloskeletal RST LOS, Musculoskeletal ARZ LOS, Muskuloskeletal FLA LOS Left Digit al Radiography Impressions 07/19/2024 3:00 PM INVESTMENT BANKING ANALYST Diffuse demineralization and degenerative changes. No significant joint effusion. No definite acute displaced fracture or traumatic misalignment. Narrative 07/19/2024 3:00 PM INVESTMENT BANKING ANALYST EXAM: DX FEMUR LEFT 2 VIEWS Procedure Note Tre Rodriguez D.O. - 07/19/2024 EXAM: DX FEMUR LEFT 2 VIEWS IMPRESSION: Diffuse demineralization and degenerative changes. No significant jointeffusion. No definite acute displaced fracture or traumaticmisalignment. Viviane Jeffers APRN, Zuleyma.N.P., D.N.P. [facility] Final Result * DX Chest AP or PA and Lateral 2 Views (07/19/2024 2:33 PM INVESTMENT BANKING ANALYST) Anatomical Region Laterality Modality Chest, Thoracic RST LOS, Tho racic ARZ LOS, Thoracic FLA LOS N/A Digital Radiography Impressions 07/19/2024 2:47 PM INVESTMENT BANKING ANALYST No focal consolidation. No large pleural effusion or discernible pneumothorax. Stable cardiac silhouette size. No rib fractures better characterized on same day CT chest. Narrative 07/19/2024 2:47 PM INVESTMENT BANKING ANALYST EXAM: DX CHEST AP OR PA AND LATERAL 2 VIEWS Procedure Note Tre Rodriguez D.O. - 07/19/2024 EXAM: DX CHEST AP OR PA AND LATERAL 2 VIEWS IMPRESSION: No focal consolidation. No large pleural effusion or discerniblepneumothorax. Stable cardiac silhouette size. No rib fractures bettercharacterized on same day CT chest. Viviane Jeffers APRN, C.N.P., D.N.P. [facility] IMAGING PROCEDURES Final Result * Electrophoresis, Protein, Random, Urine (07/19/2024 1:39 PM INVESTMENT BANKING ANALYST) Protein, Total, Random, U 4 mg/dL 07/19/2024 3:58 PM INVESTMENT BANKING ANALYST DTL Creatinine, Random, U 39 16 - 326 mg/dL 07/19/2024 3:58 PM INVESTMENT BANKING ANALYST DTL Protein/Creati nine Ratio 0.10 <0.18 mg/mg 07/19/2024 3:58 PM INVESTMENT BANKING ANALYST DTL Albumin, mg/dL 0.8 mg/dL 07/23/2024 8:15 AM INVESTMENT BANKING ANALYST [facility] Alpha-1 globulin, mg/dL 0.4 mg/dL 07/23/2024 8:15 AM INVESTMENT BANKING ANALYST [facility] Alpha-2 globulin, mg/dL 1.0 mg/dL 07/23/2024 8:15 AM INVESTMENT BANKING ANALYST [facility] Beta globulin, mg/dL 0.9 mg/dL 07/23/2024 8:15 AM INVESTMENT BANKING ANALYST [facility] Gamma globulin, mg/dL 0.9 mg/dL 07/23/2024 8:15 AM INVESTMENT BANKING ANALYST [facility] A/G Ratio 0.25 07/23/2024 8:15 AM INVESTMENT BANKING ANALYST [facility] Impression All fractions present, no apparent M-spike. 07/23/2024 8:15 AM INVESTMENT BANKING ANALYST [facility] Urine (Urine, Midstream) 07/19/2024 1:39 PM INVESTMENT BANKING ANALYST 07/21/2024 6:18 AM INVESTMENT BANKING ANALYST us Viviane Jeffers APRN, C.N.P., D.N.P. LAB URINE ORDERABLES Final Result Performing Organization Address City/State/[facility] Co de Phone Number [facility] [address] [place] [address] [facility] [address] [place] [address] [facility] [address] [facility] [address] [place] [address] * CT Thoracic and Lumbar Spine by Reconstruction (07/19/2024 2:56 AM INVESTMENT BANKING ANALYST) Anatomical Region Laterality Modality Thoracic Spine, Neuroradiolo gy RST LOS, Neuroradiology ARZ LOS, Neuroradiology FLA LOS N/A Computed Tomography, Compute d Tomography Impressions 07/19/2024 8:12 AM INVESTMENT BANKING ANALYST 1. Age-indeterminate compression fracture of T12 with 75% vertebral body height loss centrally and superior endplate compression deformities of T2 and T10 with 10- 20% vertebral body height loss, respectively. Findings could reflect sequelae of patient's multiple myeloma and should be corroborated with clinical exam and any additional prior imaging, if available. 2. No other definite acute/traumatic findings in the thoracolumbar spine. 3. Mild-moderate thoracic and borderline moderate lumbar spondylosis without high-grade spinal canal or foraminal stenosis. Examination performed in conjunction with a CT of the chest, abdomen, and pelvis which will reported separately. Narrative 07/19/2024 8:12 AM INVESTMENT BANKING ANALYST EXAM: CT THORACIC AND LUMBAR SPINE BY RECONSTRUCTION COMPARISON: Chest radiograph 12/22/2014 FINDINGS: For enumeration purposes there are 12 thoracic and 5 lumbar type vertebral bodies. Diffuse osseous demineralization. Age-indeterminate compression fractures involving T12 (75% height loss centrally) and the superior endplates of T2 and T10 (10% and 20% vertebral body height loss, respectively). No significant paraspinal soft tissue findings to strongly suggest acute fractures but these should be correlated clinically. Minimal retropulsion of the posterior aspect of the T12 vertebral body that minimally effaces the ventral epidural space. Fracture lines/sites of cortical disruption remain evident in the T12 compression fracture; this finding may reflect a more acute chronology. No other significant fracture retropulsion in the thoracolumbar spine. Scattered disc vacuum phenomenon. Overall mild-moderate thoracic and borderline moderate lumbar spondylosis without high-grade spinal canal or foraminal stenosis. Please see separately reported CT of the chest, abdomen, and pelvis for extra- spinous findings. Procedure Note Marcial Chavez M.D., Ph.D. - 07/19/2024 EXAM: CT THORACIC AND LUMBAR SPINE BY RECONSTRUCTION COMPARISON: Chest radiograph 12/22/2014 FINDINGS: For enumeration purposes there are 12 thoracic and 5 lumbar typevertebral bodies. Diffuse osseous demineralization. Age-indeterminatecompression fractures involving T12 (75% height loss centrally) and thesuperior endplates of T2 and T10 (10% and 20% vertebral body height loss, respectively). No significantparaspinal soft tissue findings to strongly suggest acute fractures butthese should be correlated clinically. Minimal retropulsion of theposterior aspect of the T12 vertebral body that minimally effaces the ventral epidural space. Fracture lines/sites ofcortical disruption remain evident in the T12 compression fracture; thisfinding may reflect a more acute chronology. No other significant fractureretropulsion in the thoracolumbar spine. Scattered disc vacuum phenomenon. Overall mild-moderate thoracicand borderline moderate lumbar spondylosis without high-grade spinal canalor foraminal stenosis. Please see separately reported CT of the chest, abdomen, and pelvis forextra- spinous findings. IMPRESSION: 1. Age-indeterminate compression fracture of T12 with 75% vertebral bodyheight loss centrally and superior endplate compression deformities of T2and T10 with 10-20% vertebral body height loss, respectively. Findingscould reflect sequelae of patient's multiple myeloma and should be corroborated with clinical exam and anyadditional prior imaging, if available. 2. No other definite acute/traumatic findings in the thoracolumbarspine. 3. Mild-moderate thoracic and borderline moderate lumbar spondylosiswithout high-grade spinal canal or foraminal stenosis. Examination performed in conjunction with a CT of the chest, abdomen, andpelvis which will reported separately. [facility] LEAL CT PROCEDURES Final Result * CT Abdomen Pelvis with IV Contrast (07/19/2024 2:56 AM INVESTMENT BANKING ANALYST) Anatomical Region Laterality Modality Abdomen, Pelvis, Abdominal R ST LOS, Abdominal ARZ LOS, Abdominal FLA LOS N/A Computed Tomograp hy, Computed Tomography 07/19/2024 2:48 AM INVESTMENT BANKING ANALYST Impressions 07/19/2024 8:15 AM INVESTMENT BANKING ANALYST 1. Acute appearing nondisplaced fracture involving the posterior right 4th rib. 2.Pathologic fracture within the lateral right sixth rib as described. Possible additional lesion within the posterolateral left fourth rib. These lesions appear chronic with central fat attenuation suggestive of treated multiple myeloma. Correlate with history, laboratory analysis, tissue sampling, or prior imaging if available to exclude active disease. Additional chronic appearing bilateral rib fractures. 3. Otherwise, no acute traumatic findings in the chest, abdomen, or pelvis. 4. Additional lucent 2.3 cm lesion within the left iliac bone with central fat attenuation suggestive of treated multiple myeloma. 5. A indeterminate 6 mm subpleural left lower lobe nodule. Follow-up guidelines in the body of the report. 6. 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 7. Please see dedicated CT thoracic spine report for findings regarding the compression fracture in the thoracic spine. Narrative 07/19/2024 8:15 AM INVESTMENT BANKING ANALYST EXAM: CT CHEST WITH IV CONTRAST, CT ABDOMEN PELVIS WITH IV CONTRAST COMPARISON: None available. FINDINGS: CHEST: No pneumothorax, pulmonary laceration, or pulmonary contusion. No mediastinal vascular injury or mediastinal hematoma. No pericardial effusion. Nondisplaced fracture of the posterior right 4th rib (series 4, image 97). Chronic appearing anterior lateral buckling deformities involving multiple anterior right ribs and left lower ribs. Heterogenous expansile fatty lesion with pathologic minimally displaced fracture within the lateral right sixth rib (series 3, image 49). Associated cortical breakthrough with soft tissue component extending about the pleura. Possible additional lesion within the left posterolateral fourth rib with an area of potential cortical breakthrough (series 3, image 100). No other rib fracture or osseous lesion identified. Bone demineralization. Patchy atelectasis throughout the lungs. A 6 mm subpleural left lower lobe nodule (series 3, image 153). Mild scattered arterial calcifications. Focal ectasia of the proximal descending thoracic aorta measuring up to 3.0 cm. Compression fracture deformities of the T2 and T10 vertebral bodies. Please see CT spine report for further details ABDOMEN AND PELVIS: No solid organ injury. No mesenteric or pelvic fluid collection. No pelvic fracture. Vertebral body compression fractures most notably at T12 which will be separately described on the dedicated CT of the thoracic lumbar spine. Hepatic steatosis. Small esophageal hiatal hernia. Fluid distention of the stomach. Colonic diverticulosis without diverticulitis. Normal caliber small and large bowel. Normal appendix. Unremarkable appearance of the gallbladder, and pancreas. Right lower splenic subcentimeter hypodensity, presumably benign. Left adreniform thickening without discrete nodule. Incidental horseshoe kidney. No hydronephrosis. Distended urinary bladder with normal bladder wall thickness. Moderate atherosclerotic arterial calcifications. Ill-defined lucent 2.3 cm lesion within the left iliac bone, indeterminate. GUIDELINES FOR FOLLOW-UP of newly detected solid nodules incidentally detected on CT in persons 35 years or older. (2017 revision) LOW-RISK PATIENT (Minimal or absent history of smoking or of other known risk factors) For single nodule, size: <6mm No routine follow-up required 6-8mm CT at 6-12 months; then consider CT at 18-24 months, if no change >8mm Consider Pulmonary Medicine consultation for management, or follow-up with CT at 3 months For multiple nodules, size of largest nodule: <6mm No routine follow-up required 6mm or > CT at 3-6 months, then consider CT at 18-24 months HIGH-RISK PATIENT (History of smoking or of other known risk factors) For single nodule, size: <6mm Optional CT at 12 months*; If unchanged, no further follow-up required 6-8mm CT at 6-12 months; then CT at 18-24 months, if no change >8mm Consider Pulmonary Medicine consultation for management, or follow-up with CT at 3 months For multiple nodules, size of largest nodule: <6mm Optional CT at 12 months*; If unchanged, no further follow-up required 6mm or > CT at 3-6 months, then at 18-24 months (Nodule size is the average of length and width.) *Nodules <6mm do not require routine follow-up, but certain patients at high risk with suspicious nodule morphology, upper lobe location, or both may warrant 12- month follow-up. Guidelines do not apply to lung cancer screening, patients with immunosuppression, or patients with a known primary cancer. Procedure Note Froylan Covarrubias M.D. - 07/19/2024 EXAM: CT CHEST WITH IV CONTRAST, CT ABDOMEN PELVIS WITH IV CONTRAST COMPARISON: None available. FINDINGS: CHEST: No pneumothorax, pulmonary laceration, or pulmonary contusion. Nomediastinal vascular injury or mediastinal hematoma. No pericardialeffusion. Nondisplaced fracture of the posterior right 4th rib (series 4, image 97).Chronic appearing anterior lateral buckling deformities involvingmultiple anterior right ribs and left lower ribs. Heterogenous expansile fatty lesion with pathologic minimally displacedfracture within the lateral right sixth rib (series 3, image 49).Associated cortical breakthrough with soft tissue component extendingabout the pleura. Possible additional lesion within the left posterolateral fourth rib with an area of potentialcortical breakthrough (series 3, image 100). No other rib fracture orosseous lesion identified. Bone demineralization. Patchy atelectasis throughout the lungs. A 6 mm subpleural left lower lobenodule (series 3, image 153). Mild scattered arterial calcifications. Focal ectasia of the proximaldescending thoracic aorta measuring up to 3.0 cm. Compression fracture deformities of the T2 and T10 vertebral bodies.Please see CT spine report for further details ABDOMEN AND PELVIS: No solid organ injury. No mesenteric or pelvic fluidcollection. No pelvic fracture. Vertebral body compression fractures mostnotably at T12 which will be separately described on the dedicated CT ofthe thoracic lumbar spine. Hepatic steatosis. Small esophageal hiatal hernia. Fluid distention ofthe stomach. Colonic diverticulosis without diverticulitis. Normal calibersmall and large bowel. Normal appendix. Unremarkable appearance of the gallbladder, and pancreas. Right lowersplenic subcentimeter hypodensity, presumably benign. Left adreniformthickening without discrete nodule. Incidental horseshoe kidney. Nohydronephrosis. Distended urinary bladder with normal bladder wall thickness. Moderate atherosclerotic arterial calcifications. Ill-defined lucent 2.3 cm lesion within the left iliac bone,indeterminate. GUIDELINES FOR FOLLOW-UP of newly detected solid nodules incidentallydetected on CT in persons 35 years or older. (2017 revision) LOW-RISK PATIENT (Minimal or absent history of smoking or of other knownrisk factors) For single nodule, size: <6mm No routine follow-up required 6-8mm CT at 6-12 months; then consider CT at 18-24 months, if no change >8mm Consider Pulmonary Medicine consultation for management, orfollow-up with CT at 3 months For multiple nodules, size of largest nodule: <6mm No routine follow-up required 6mm or > CT at 3-6 months, then consider CT at 18-24 months HIGH-RISK PATIENT (History of smoking or of other known risk factors) For single nodule, size: <6mm Optional CT at 12 months*; If unchanged, no further follow-uprequired 6-8mm CT at 6-12 months; then CT at 18-24 months, if no change >8mm Consider Pulmonary Medicine consultation for management, or follow-upwith CT at 3 months For multiple nodules, size of largest nodule: <6mm Optional CT at 12 months*; If unchanged, no further follow-uprequired 6mm or > CT at 3-6 months, then at 18-24 months (Nodule size is the average of length and width.) *Nodules <6mm do not require routine follow-up, but certain patients athigh risk with suspicious nodule morphology, upper lobe location, or bothmay warrant 12-month follow-up. Guidelines do not apply to lung cancer screening, patients withimmunosuppression, or patients with a known primary cancer. IMPRESSION: 1. Acute appearing nondisplaced fracture involving the posterior right 4thrib. 2.Pathologic fracture within the lateral right sixth rib as described.Possible additional lesion within the posterolateral left fourth rib.These lesions appear chronic with central fat attenuation suggestive oftreated multiple myeloma. Correlate with history, laboratory analysis, tissue sampling, or prior imaging ifavailable to exclude active disease. Additional chronic appearingbilateral rib fractures. 3. Otherwise, no acute traumatic findings in the chest, abdomen, orpelvis. 4. Additional lucent 2.3 cm lesion within the left iliac bone with centralfat attenuation suggestive of treated multiple myeloma. 5. A indeterminate 6 mm subpleural left lower lobe nodule. Follow-upguidelines in the body of the report. 6. 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 7. Please see dedicated CT thoracic spine report for findings regardingthe compression fracture in the thoracic spine. [facility] LEAL CT PROCEDURES Final Result * CT Cervical Spine without IV Contrast (07/19/2024 2:56 AM INVESTMENT BANKING ANALYST) Anatomical Region Laterality Modality Cervical Spine, Neuroradiolo gy RST LOS, Neuroradiology ARZ [facility], Neuroradiology FLA LOS N/A Computed Tomography, Compute d Tomography 07/19/2024 2:33 AM INVESTMENT BANKING ANALYST Impressions 07/19/2024 8:03 AM INVESTMENT BANKING ANALYST 1. Technically limited exam due to motion artifact and osteopenia. 2. No definite CT evidence of acute fracture or traumatic malalignment in the cervical spine. Rotatory and posterior subluxation of C1 on C2 is favored to be positional but should be correlated clinically. 3. Overall moderate cervical spondylosis, as described. Narrative 07/19/2024 8:03 AM INVESTMENT BANKING ANALYST EXAM: CT CERVICAL SPINE WITHOUT IV CONTRAST COMPARISON: None available. TECHNICAL NOTE: Patient motion artifact and moderate to advanced osteopenia limits exam sensitivity. FINDINGS: 7 cervical type vertebral bodies. No definite CT evidence of acute fracture or traumatic malalignment. No acute findings in the paraspinal soft tissues. Mild rotatory and posterior subluxation of C1 on C2 that is favored to be positional in nature but should be correlated clinically. Grade 1 anterolisthesis of C4 on C5 with corresponding degenerative facet changes, moderate disc space height loss, and degenerative disc disease. Additional multilevel dorsal disc osteophytes, facet arthropathy, and uncovertebral spurring. These changes contribute to moderate to moderate spinal canal stenosis at C4-C5 and C5-C6 and multilevel foraminal stenosis that is moderate to moderate-advanced at C5-C6 bilaterally and C6-C7 on the left and moderate stenosis at C4-C5 bilaterally at C6-C7 on the right. Arterial calcifications. Procedure Note Marcial Chavez M.D., Ph.D. - 07/19/2024 EXAM: CT CERVICAL SPINE WITHOUT IV CONTRAST COMPARISON: None available. TECHNICAL NOTE: Patient motion artifact and moderate to advancedosteopenia limits exam sensitivity. FINDINGS: 7 cervical type vertebral bodies. No definite CT evidence ofacute fracture or traumatic malalignment. No acute findings in theparaspinal soft tissues. Mild rotatory and posterior subluxation of C1 on C2 that is favored to bepositional in nature but should be correlated clinically. Grade 1anterolisthesis of C4 on C5 with corresponding degenerative facet changes,moderate disc space height loss, and degenerative disc disease. Additional multilevel dorsal disc osteophytes,facet arthropathy, and uncovertebral spurring. These changes contribute tomoderate to moderate spinal canal stenosis at C4-C5 and C5-C6 andmultilevel foraminal stenosis that is moderate to moderate-advanced at C5-C6 bilaterally and C6-C7 on the leftand moderate stenosis at C4-C5 bilaterally at C6-C7 on the right. Arterial calcifications. IMPRESSION: 1. Technically limited exam due to motion artifact and osteopenia. 2. No definite CT evidence of acute fracture or traumatic malalignment inthe cervical spine. Rotatory and posterior subluxation of C1 on C2 isfavored to be positional but should be correlated clinically. 3. Overall moderate cervical spondylosis, as described. Winston Spivey M.D. IM CT PROCEDURES Final Result * CT Chest with IV Contrast (07/19/2024 2:56 AM INVESTMENT BANKING ANALYST) Anatomical Region Laterality Modality Chest, Thoracic RST LOS, Tho racic ARZ LOS, Thoracic ARZ LOS, Thoracic FLA LOS N/A Computed Tomography, Compute d Tomography 07/19/2024 2:47 AM INVESTMENT BANKING ANALYST Impressions 07/19/2024 8:15 AM INVESTMENT BANKING ANALYST 1. Acute appearing nondisplaced fracture involving the posterior right 4th rib. 2.Pathologic fracture within the lateral right sixth rib as described. Possible additional lesion within the posterolateral left fourth rib. These lesions appear chronic with central fat attenuation suggestive of treated multiple myeloma. Correlate with history, laboratory analysis, tissue sampling, or prior imaging if available to exclude active disease. Additional chronic appearing bilateral rib fractures. 3. Otherwise, no acute traumatic findings in the chest, abdomen, or pelvis. 4. Additional lucent 2.3 cm lesion within the left iliac bone with central fat attenuation suggestive of treated multiple myeloma. 5. A indeterminate 6 mm subpleural left lower lobe nodule. Follow-up guidelines in the body of the report. 6. 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 7. Please see dedicated CT thoracic spine report for findings regarding the compression fracture in the thoracic spine. Narrative 07/19/2024 8:15 AM INVESTMENT BANKING ANALYST EXAM: CT CHEST WITH IV CONTRAST, CT ABDOMEN PELVIS WITH IV CONTRAST COMPARISON: None available. FINDINGS: CHEST: No pneumothorax, pulmonary laceration, or pulmonary contusion. No mediastinal vascular injury or mediastinal hematoma. No pericardial effusion. Nondisplaced fracture of the posterior right 4th rib (series 4, image 97). Chronic appearing anterior lateral buckling deformities involving multiple anterior right ribs and left lower ribs. Heterogenous expansile fatty lesion with pathologic minimally displaced fracture within the lateral right sixth rib (series 3, image 49). Associated cortical breakthrough with soft tissue component extending about the pleura. Possible additional lesion within the left posterolateral fourth rib with an area of potential cortical breakthrough (series 3, image 100). No other rib fracture or osseous lesion identified. Bone demineralization. Patchy atelectasis throughout the lungs. A 6 mm subpleural left lower lobe nodule (series 3, image 153). Mild scattered arterial calcifications. Focal ectasia of the proximal descending thoracic aorta measuring up to 3.0 cm. Compression fracture deformities of the T2 and T10 vertebral bodies. Please see CT spine report for further details ABDOMEN AND PELVIS: No solid organ injury. No mesenteric or pelvic fluid collection. No pelvic fracture. Vertebral body compression fractures most notably at T12 which will be separately described on the dedicated CT of the thoracic lumbar spine. Hepatic steatosis. Small esophageal hiatal hernia. Fluid distention of the stomach. Colonic diverticulosis without diverticulitis. Normal caliber small and large bowel. Normal appendix. Unremarkable appearance of the gallbladder, and pancreas. Right lower splenic subcentimeter hypodensity, presumably benign. Left adreniform thickening without discrete nodule. Incidental horseshoe kidney. No hydronephrosis. Distended urinary bladder with normal bladder wall thickness. Moderate atherosclerotic arterial calcifications. Ill-defined lucent 2.3 cm lesion within the left iliac bone, indeterminate. GUIDELINES FOR FOLLOW-UP of newly detected solid nodules incidentally detected on CT in persons 35 years or older. (2017 revision) LOW-RISK PATIENT (Minimal or absent history of smoking or of other known risk factors) For single nodule, size: <6mm No routine follow-up required 6-8mm CT at 6-12 months; then consider CT at 18-24 months, if no change >8mm Consider Pulmonary Medicine consultation for management, or follow-up with CT at 3 months For multiple nodules, size of largest nodule: <6mm No routine follow-up required 6mm or > CT at 3-6 months, then consider CT at 18-24 months HIGH-RISK PATIENT (History of smoking or of other known risk factors) For single nodule, size: <6mm Optional CT at 12 months*; If unchanged, no further follow-up required 6-8mm CT at 6-12 months; then CT at 18-24 months, if no change >8mm Consider Pulmonary Medicine consultation for management, or follow-up with CT at 3 months For multiple nodules, size of largest nodule: <6mm Optional CT at 12 months*; If unchanged, no further follow-up required 6mm or > CT at 3-6 months, then at 18-24 months (Nodule size is the average of length and width.) *Nodules <6mm do not require routine follow-up, but certain patients at high risk with suspicious nodule morphology, upper lobe location, or both may warrant 12- month follow-up. Guidelines do not apply to lung cancer screening, patients with immunosuppression, or patients with a known primary cancer. Procedure Note Froylan Covarrubias M.D. - 07/19/2024 EXAM: CT CHEST WITH IV CONTRAST, CT ABDOMEN PELVIS WITH IV CONTRAST COMPARISON: None available. FINDINGS: CHEST: No pneumothorax, pulmonary laceration, or pulmonary contusion. Nomediastinal vascular injury or mediastinal hematoma. No pericardialeffusion. Nondisplaced fracture of the posterior right 4th rib (series 4, image 97).Chronic appearing anterior lateral buckling deformities involvingmultiple anterior right ribs and left lower ribs. Heterogenous expansile fatty lesion with pathologic minimally displacedfracture within the lateral right sixth rib (series 3, image 49).Associated cortical breakthrough with soft tissue component extendingabout the pleura. Possible additional lesion within the left posterolateral fourth rib with an area of potentialcortical breakthrough (series 3, image 100). No other rib fracture orosseous lesion identified. Bone demineralization. Patchy atelectasis throughout the lungs. A 6 mm subpleural left lower lobenodule (series 3, image 153). Mild scattered arterial calcifications. Focal ectasia of the proximaldescending thoracic aorta measuring up to 3.0 cm. Compression fracture deformities of the T2 and T10 vertebral bodies.Please see CT spine report for further details ABDOMEN AND PELVIS: No solid organ injury. No mesenteric or pelvic fluidcollection. No pelvic fracture. Vertebral body compression fractures mostnotably at T12 which will be separately described on the dedicated CT ofthe thoracic lumbar spine. Hepatic steatosis. Small esophageal hiatal hernia. Fluid distention ofthe stomach. Colonic diverticulosis without diverticulitis. Normal calibersmall and large bowel. Normal appendix. Unremarkable appearance of the gallbladder, and pancreas. Right lowersplenic subcentimeter hypodensity, presumably benign. Left adreniformthickening without discrete nodule. Incidental horseshoe kidney. Nohydronephrosis. Distended urinary bladder with normal bladder wall thickness. Moderate atherosclerotic arterial calcifications. Ill-defined lucent 2.3 cm lesion within the left iliac bone,indeterminate. GUIDELINES FOR FOLLOW-UP of newly detected solid nodules incidentallydetected on CT in persons 35 years or older. (2017 revision) LOW-RISK PATIENT (Minimal or absent history of smoking or of other knownrisk factors) For single nodule, size: <6mm No routine follow-up required 6-8mm CT at 6-12 months; then consider CT at 18-24 months, if no change >8mm Consider Pulmonary Medicine consultation for management, orfollow-up with CT at 3 months For multiple nodules, size of largest nodule: <6mm No routine follow-up required 6mm or > CT at 3-6 months, then consider CT at 18-24 months HIGH-RISK PATIENT (History of smoking or of other known risk factors) For single nodule, size: <6mm Optional CT at 12 months*; If unchanged, no further follow-uprequired 6-8mm CT at 6-12 months; then CT at 18-24 months, if no change >8mm Consider Pulmonary Medicine consultation for management, or follow-upwith CT at 3 months For multiple nodules, size of largest nodule: <6mm Optional CT at 12 months*; If unchanged, no further follow-uprequired 6mm or > CT at 3-6 months, then at 18-24 months (Nodule size is the average of length and width.) *Nodules <6mm do not require routine follow-up, but certain patients athigh risk with suspicious nodule morphology, upper lobe location, or bothmay warrant 12-month follow-up. Guidelines do not apply to lung cancer screening, patients withimmunosuppression, or patients with a known primary cancer. IMPRESSION: 1. Acute appearing nondisplaced fracture involving the posterior right 4thrib. 2.Pathologic fracture within the lateral right sixth rib as described.Possible additional lesion within the posterolateral left fourth rib.These lesions appear chronic with central fat attenuation suggestive oftreated multiple myeloma. Correlate with history, laboratory analysis, tissue sampling, or prior imaging ifavailable to exclude active disease. Additional chronic appearingbilateral rib fractures. 3. Otherwise, no acute traumatic findings in the chest, abdomen, orpelvis. 4. Additional lucent 2.3 cm lesion within the left iliac bone with centralfat attenuation suggestive of treated multiple myeloma. 5. A indeterminate 6 mm subpleural left lower lobe nodule. Follow-upguidelines in the body of the report. 6. 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 7. Please see dedicated CT thoracic spine report for findings regardingthe compression fracture in the thoracic spine. Winston LEAL CT PROCEDURES Final Result * CT Head without IV Contrast (07/19/2024 2:56 AM INVESTMENT BANKING ANALYST) Anatomical Region Laterality Modality Head, Neuroradiology RST LOS , Neuroradiology ARZ LOS, Neuroradiology FLA LOS N/A Computed Tomography, Compute d Tomography 07/19/2024 2:33 AM INVESTMENT BANKING ANALYST Impressions 07/19/2024 7:57 AM INVESTMENT BANKING ANALYST 1. No acute traumatic intracranial findings. 2. Scattered small calvarial lucencies, possibly related to the patient's multiple myeloma (currently in remission). Narrative 07/19/2024 7:57 AM INVESTMENT BANKING ANALYST EXAM: CT HEAD WITHOUT IV CONTRAST COMPARISON: None. FINDINGS: No acute intracranial hemorrhage, mass effect, extra-axial fluid collection, hydrocephalus, or CT evidence of acute or large vascular territory chronic infarct. No CT evidence of acute craniofacial or calvarial fracture or significant soft tissue injury to the face or scalp. Dilated perivascular space versus chronic lacunar infarcts in the basal ganglia (R > L). Moderate generalized parenchymal volume loss with ex vacuo dilation of the ventricular system. Leukoaraiosis. Intracranial vascular calcifications. Possible chronic nasal bone fracture(s). Intraocular lens replacements. Scattered mild paranasal sinus mucosal thickening with small left maxillary sinus mucus retention cyst. Frothy secretions in the nasal airways. Mastoid air cells are well aerated. Dental extractions and sabianism hardware. Scattered small lucencies throughout the calvarium that could reflect a chronic manifestation of the patient's known multiple myeloma. Procedure Note Marcial Chavez M.D., Ph.D. - 07/19/2024 EXAM: CT HEAD WITHOUT IV CONTRAST COMPARISON: None. FINDINGS: No acute intracranial hemorrhage, mass effect, extra-axial fluidcollection, hydrocephalus, or CT evidence of acute or large vascularterritory chronic infarct. No CT evidence of acute craniofacial orcalvarial fracture or significant soft tissue injury to the face or scalp. Dilated perivascular space versuschronic lacunar infarcts in the basal ganglia (R > L). Moderategeneralized parenchymal volume loss with ex vacuo dilation of theventricular system. Leukoaraiosis. Intracranial vascular calcifications. Possible chronic nasal bonefracture(s). Intraocular lens replacements. Scattered mild paranasal sinus mucosalthickening with small left maxillary sinus mucus retention cyst. Frothysecretions in the nasal airways. Mastoid air cells are well aerated.Dental extractions and sabianism hardware. Scattered small lucencies throughout the calvarium that could reflect achronic manifestation of the patient's known multiple myeloma. IMPRESSION: 1. No acute traumatic intracranial findings. 2. Scattered small calvarial lucencies, possibly related to the patient'smultiple myeloma (currently in remission). Winston Spivey M.D. [facility] [place] PROCEDURES Final Result * (ABNORMAL) Ethanol Level, Serum (07/19/2024 12:32 AM INVESTMENT BANKING ANALYST) Ethanol, S 175(H) <10 mg/dL 07/19/2024 1:1 4 AM INVESTMENT BANKING ANALYST DTL Blood (Blood, Venous) 07/19/2024 12:32 AM INVESTMENT BANKING ANALYST 07/19/2024 12:55 AM INVESTMENT BANKING ANALYST us Winston Spivey M.D. LAB BLOOD NON ADD- ON Final Result Performing Organization Address City/[facility]/ZIP Co de Phone Number [facility] [address] [place] [address], [facility] [place] [address] * (ABNORMAL) Hepatic Function Panel (07/19/2024 12:32 AM INVESTMENT BANKING ANALYST) Bilirubin, Total, S 0.4 0.0 - 1.2 mg/dL 07/19/2024 1:14 AM INVESTMENT BANKING ANALYST DTL Bilirubin, Direct, S <0.2 0.0 - 0.3 mg/dL 07/19/2024 1:14 AM INVESTMENT BANKING ANALYST DTL Aspartate Aminotransferase (AST), S 22 8 - 48 U/L 07/19/2024 1:14 AM INVESTMENT BANKING ANALYST DTL Alanine Aminotransferase (ALT), S 21 7 - 55 U/L 07/19/2024 1:14 AM INVESTMENT BANKING ANALYST DTL Alkaline Phosphatase, S 114 40 - 129 U/L 07/19/2024 1:14 AM INVESTMENT BANKING ANALYST DTL Albumin, S 3.7 3.5 - 5.0 g/dL 07/19/2024 1:14 AM INVESTMENT BANKING ANALYST DTL Protein, Total, S 5.4(L) 6.3 - 7.9 g/dL 07/19/2024 1:14 AM INVESTMENT BANKING ANALYST DTL Blood (Blood, Venous) 07/19/2024 12:32 AM INVESTMENT BANKING ANALYST 07/19/2024 12:55 AM INVESTMENT BANKING ANALYST us Winston Spivey M.D. LAB BLOOD ADD-ON F inal Result Performing Organization Address City/[facility]/ZIP Co de Phone Number [facility] [address] [place], [place] [phone] [place] [address] [facility] [address] [place] [address] * (ABNORMAL) Hemoglobin A1c (07/19/2024 12:25 AM INVESTMENT BANKING ANALYST) Hemoglobin A1c, B 7.6(H) 4.0 - 5.6 % 07/19/2024 11:00 AM INVESTMENT BANKING ANALYST DTL Comment: Hemoglobin A1c values greater than or equal to 6.5 percent are diagnostic for diabetes mellitus. Diagnosis should be confirmed by repeat testing. In diabetic patients, HbA1c goals should be discussed with healthcare provider. Blood (Blood, Venous) 07/19/2024 12:25 AM INVESTMENT BANKING ANALYST 07/19/2024 8:52 AM INVESTMENT BANKING ANALYST Daisha Barros M.D. LAB BLOOD ADD-O N Final Result [facility] [address] [place] [address] * ECG 12 Lead (07/19/2024 12:02 AM INVESTMENT BANKING ANALYST) Ventricular Rate ECG/Min 100 BPM MUSE MI Interval 228 ms MUSE QRSD Interval 112 ms MUSE QT Interval 364 ms MUSE QTC Interval 469 ms MUSE P Fletcher 36 degrees MUSE R Fletcher -54 degrees MUSE T Wave Fletcher 82 degrees MUSE 07/19/2024 12:0 2 AM INVESTMENT BANKING ANALYST 07/19/2024 12:13 AM INVESTMENT BANKING ANALYST Impressions MUSE - 07/19/2024 12:13 AM INVESTMENT BANKING ANALYST Sinus rhythm with 1st degree A-V block Left axis deviation Non-specific intra-ventricular conduction delay When compared with ECG of 22-May-2007 10:12, Significant changes have occurred Reviewed by JEAN CLAUDE Cruz Narrative Procedure Note Ayden Glez M.D., Ph.D. - 07/19/2024 IMPRESSION: Sinus rhythm with 1st degree A-V block Left axis deviation Non-specific intra-ventricular conduction delay When compared with ECG of 22-May-2007 10:12, Significant changes have occurred Reviewed by JEAN CLAUDE Cruz us Winston Spivey M.D. ECG ORDERABLES Fi nal Result MUSE NA * (ABNORMAL) Microalbumin, Random, Urine (12/22/2014 4:10 PM CDT) HXU Albumin % 27.4 MGL POWERCHART Creatinine, Random, U 99.5 MGDL POWERCHART Albumin/Creatin ine Ratio 28(H) 0 - 17 MGG POWERCHART Urine 12/22/2014 4:10 PM CDT us Pop Heard M.D. LAB URINE ORDERABLES Final Res ult Performing Organization Address City/[facility] Co de Phone Number POWERCHART from Last 3 Months or Most Recently Relevant to Health Maintenance Additional Health Concerns Infection Onset Date Last Indicated Protective Environment 07/18/2024 5 Insurance [employer] Advance Directives For more information, please contact: [phone] * Full Code (Latest Code Status on File) Date Activated Date Inactivated Comments 07/19/2024 7:07 AM 07/20/2024 4:50 PM Question Answer Comments Full Code: Discussed Care Teams Claim Examiner Relationship Specialty Start Date End Date None Reported, Pcp PCP - General Family Medicine 07/19/24
--- OUTSIDE RECORDS SUMMARY | 2024-07-30 06:32 | XMS_ITS | Encounter Summary ---
Author Organization [facility] Address [address] [place] [id number] Care Team Providers Care Assembler Adjuster Name Role Phone None Reported, Pcp Primary Care Provider Unavail able Reason for Referral * Outpatient (Routine) - Closed Specialty Diagnoses / Procedures Referred By Debbie das Referred To Contact Internal Medicine / General Internal Medicine Diagnoses Failure Renal Acute (Acute Kidney Injury) (HCC) Nidia Avilez, P.A.-C. [address] [place] [phone] Phone: tel: fax: [facility] Referral ID Status Reason Start Date Expiration Date Visits Re quested Visits Authorized [id number] Closed 07/22/2024 01/21/2026 1 1 RONMENTAL HEALTH TECHNICIAN Encounter Details Date Type Department Care Team (Late st Contact Info) Description 07/22/2024 Clinical Communication Department of Hospital Internal Medicine in [place], [place] [address] [place] [phone] Nidia Avilez, P.A.-C. [address] [place] [phone] Social History Tobacco Use Types Packs/Day Years Used Date Smoking Tobacco: Former Smokeless Tobacco: Never Alcohol Use Standard Drinks/Week Comments Yes 0 (1 standard drink = 0.6 oz pur e alcohol) [facility] Utilities Answer Date Recorded In the past 12 months has [employer] electric, gas, oil, or water company threatened to shut off services in your [...] your living situation today? I have a [facility] place to live 07/19/2024 Sex and Gender Information Value Date Recorded Sex Assigned at Not on file Legal Sex Male 6:12 AM ENVIRONMENTAL HEALTH TECHNICIAN Gender Identity Not on file Sexual Orientation Not on file documented as of this encounter Plan of Treatment Upcoming Encounters Date Type Department Care Team (Late st Contact Info) Description 07/31/2024 11:50 AM ENVIRONMENTAL HEALTH TECHNICIAN Appointment Department of Laboratory Medicine and Pathology, [facility], in [place], [place] [address] [place] [phone] Mami Momin P.A.-C. [address] [place] [phone] 07/31/2024 12:00 PM ENVIRONMENTAL HEALTH TECHNICIAN Appointment Department of Laboratory Medicine and Pathology, [facility] in [place], [place] [address] [place] [phone] Mami Momin P.A.-C. [address] [place] [phone] 07/31/2024 3:30 PM ENVIRONMENTAL HEALTH TECHNICIAN Office Visit Department of Hospital Internal Medicine in [place], [place] [address] [place] [phone] Mami Momin P.A.-C. [address] [place] [phone] Scheduled Referrals Name Type Priority Associated Diagnoses Orde r Schedule [facility] Internal Medicine office visit (clinic) Outpatient Referral Routine Failure Renal Acute (Acute Kidney Injury) (HCC) Expected: 07/24/2024, Expires: 10/20/2025 documented as of this encounter Visit Diagnoses Diagnosis Failure Renal Acute (Acute Kidney Injury) (HCC)- Primary documented in this encounter Additional Health Concerns Infection Onset Date Last Indicated Resolved Time Protective Environment 07/18/2024 07/18/2024 documented as of this encounter Care Teams Assembler Adjuster Relationship Specialty Start Date End Date None Reported, Pcp PCP - General Family Medicine 07/19/24 documented as of this encounter
--- OUTSIDE RECORDS SUMMARY | 2024-07-30 06:32 | XMS_ITS | Referral Summary ---
Author Organization [facility] Address [address] [place] [id number] Care Team Providers Care Bolt Cutter Name Role Phone None Reported, Pcp Primary Care Provider Unavail able Source Comments Patient records contain information from all sites at [facility]. For routine questions regarding patient records, call [phone] during business hours, M-F 8:00 AM - 5:00 PM Central Time. Record requests for emergency care only can be directed to [phone] at any time.[facility] Encounters Date Type Department Care Team Description 07/23/2024 Clinical Communication Department of Hospital Internal Medicine in [address] [phone] Mami Momin PLakeshiaALakeshia-C. 07/23/2024 Clinical Communication Department of Hospital Internal Medicine in [address] [phone] Mami Momin PLakeshiaA.-C. 07/23/2024 9:00 AM ENGINEERING TECHNOLOGIST Office Visit Department of Hospital Internal Medicine in [address] [phone] Nidia Avilez P.A.-C. Mami Momin, P.A.-C. Failure Renal Acute (Acute Kidney Injury) (HCC) 07/22/2024 Clinical Communication Department of Hospital Internal Medicine in [address] [phone] Nidia Avilez P.A.-C. 07/22/2024 1:35 PM ENGINEERING TECHNOLOGIST - 07/22/2024 11:59 PM ENGINEERING TECHNOLOGIST Hospital Encounter Department of Laboratory Medicine and Pathology, [facility], in [place], [place] [address] [place] [address] Viviane Jeffers APRN, C.N.P., D.N.P. Failure Renal Acute (Acute Kidney Injury) (HCC) Discharge Disposition: Home or Self Care 07/21/2024 Clinical Communication [facility]ST [facility] [address] [place] [address] Viviane Jeffers APRN, C.N.P., D.N.P. 07/18/2024 11:50 PM ENGINEERING TECHNOLOGIST - 07/20/2024 2:50 PM ENGINEERING TECHNOLOGIST Hospital Encounter [facility], [facility] Fourth Floor [address] [place] [address] Selvin Kahn D.O. Alcohol Abuse With Intoxication Unspecified (HCC) (Primary Dx); Repeated Falls; Decline Functional Status [R53.81] Discharge Disposition: Home or Self Care from Last 3 Months Allergies Active Allergy Reactions Criticality Noted Date [...] mouth at bedtime as needed for allergies. Active cholecalcifero l, vitamin D3, 25 mcg [...] 08/07/2007 Allergy Seasonal 03/05/2006 Dependence Nicotine 12/21/2005 Immunizations Immunization Administration Dates Next Due HZV [...] drink = 0.6 oz pur e alcohol) [facility] Utilities Answer Date Recorded In the past 12 months has e [employer], gas, oil, or water [employer] threatened to shut off services in your [...] your living situation today? I have a [facility] place to live 07/19/2024 Sex and Gender Information Value Date Recorded Sex Assigned at Not on file Legal Sex Male 6:12 AM ENGINEERING TECHNOLOGIST Gender Identity Not on file Sexual Orientation Not on file Last Filed Vital Signs Vital Sign Reading Time Taken Comments Blood Pressure 109/64 07/20/2024 6:05 AM ENGINEERING TECHNOLOGIST Pulse 82 07/20/2024 6:05 AM ENGINEERING TECHNOLOGIST Temperature 36.6 C (97.9 F) 07/20/2024 6:05 AM ENGINEERING TECHNOLOGIST Respiratory Rate 16 07/20/2024 6:05 AM ENGINEERING TECHNOLOGIST Oxygen Saturation 92% 07/20/2024 6:05 AM ENGINEERING TECHNOLOGIST Inhaled Oxygen Concentration - - Weight 95.2 kg (209 lb 14.1 oz) 07/19/2024 5:00 AM ENGINEERING TECHNOLOGIST Height 172.7 cm (5' 8) 07/19/2024 5:00 AM ENGINEERING TECHNOLOGIST Body Mass Index 31.91 07/19/2024 5:00 AM ENGINEERING TECHNOLOGIST Plan of Treatment Upcoming Encounters Date Type Department Care Team (Late st Contact Info) Description 07/31/2024 11:50 AM ENGINEERING TECHNOLOGIST Appointment Department of Laboratory Medicine and Pathology, [place], [place] [address] [place] [address] Mami Momin, PLakeshiaA.-CLakeshia 200 [place] [address] 07/31/2024 12:00 PM ENGINEERING TECHNOLOGIST Appointment Department of Laboratory Medicine and Pathology, [place], [place] [address] [place] [address] Mami Momin P.A.-CLakeshia [address] [place] [phone] 07/31/2024 3:30 PM ENGINEERING TECHNOLOGIST Office Visit Department of Hospital Internal Medicine in [place], [place] [address] [place] [phone] Mami Momin P.A.-C. [address] [place] [address] Procedures Procedure Name Priority Date/Time Associated Diagnosis Comments BASIC METABOLIC PANEL, S/P Routine 07/22/2024 1:56 PM ENGINEERING TECHNOLOGIST Failure Renal Acute (Acute Kidney Injury) (HCC) GLUCOSE POCT, B Routine 07/20/2024 11:56 AM ENGINEERING TECHNOLOGIST PHOSPHORUS (INORGANIC), S Routine 07/20/2024 8:19 AM ENGINEERING TECHNOLOGIST MAGNESIUM, S Routine 07/20/2024 8:19 AM ENGINEERING TECHNOLOGIST CBC WITH DIFFERENTIAL, B Routine 07/20/2024 8:19 AM ENGINEERING TECHNOLOGIST BASIC METABOLIC PANEL, S/P Routine 07/20/2024 8:19 AM ENGINEERING TECHNOLOGIST GLUCOSE POCT, B Routine 07/20/2024 8:00 AM ENGINEERING TECHNOLOGIST DX CHEST PORTABLE 1 VIEW RAD - Routine (most inpatients and all outpatients) 07/20/2024 7:44 AM ENGINEERING TECHNOLOGIST GLUCOSE POCT, B Routine 07/19/2024 8:26 PM ENGINEERING TECHNOLOGIST GLUCOSE POCT, B Routine 07/19/2024 5:29 PM ENGINEERING TECHNOLOGIST DX FEMUR LEFT 2 VIEWS RAD - Routine (most inpatients and all outpatients) 07/19/2024 2:33 PM ENGINEERING TECHNOLOGIST DX PELVIS 1-2 VIEWS RAD - Routine (most inpatients and all outpatients) 07/19/2024 2:33 PM ENGINEERING TECHNOLOGIST DX CHEST AP OR PA AND LATERAL 2 VIEWS RAD - Routine (most inpatients and all outpatients) 07/19/2024 2:33 PM ENGINEERING TECHNOLOGIST ELECTROPHORESIS, PROTEIN, RANDOM, U Routine 07/19/2024 1:39 PM ENGINEERING TECHNOLOGIST GLUCOSE POCT, B Routine 07/19/2024 11:35 AM ENGINEERING TECHNOLOGIST GLUCOSE POCT, B Routine 07/19/2024 8:[address] THORACIC AND LUMBAR SPINE BY RECONSTRUCTION RAD - Emergent (Fastest; for the most critically ill patients) 07/19/2024 2:[address] ABDOMEN PELVIS WITH IV CONTRAST RAD - Emergent (Fastest; for the most critically ill patients) 07/19/2024 2:[address] CHEST WITH IV CONTRAST RAD - Emergent (Fastest; for the most critically ill patients) 07/19/2024 2:[address] CERVICAL SPINE WITHOUT IV CONTRAST RAD - Emergent (Fastest; for the most critically ill patients) 07/19/2024 2:[address] HEAD WITHOUT IV CONTRAST RAD - Emergent (Fastest; for the most critically ill patients) 07/19/2024 2:56 AM ENGINEERING TECHNOLOGIST ETHANOL, S STAT 07/19/2024 12:32 AM ENGINEERING TECHNOLOGIST HEPATIC FUNCTION PANEL, S STAT 07/19/2024 12:32 AM ENGINEERING TECHNOLOGIST BASIC METABOLIC PANEL, S/P STAT 07/19/2024 12:32 AM ENGINEERING TECHNOLOGIST CBC WITH DIFFERENTIAL, B STAT 07/19/2024 12:32 AM ENGINEERING TECHNOLOGIST PHOSPHORUS (INORGANIC), S Routine 07/19/2024 12:25 AM ENGINEERING TECHNOLOGIST MAGNESIUM, S Routine 07/19/2024 12:25 AM ENGINEERING TECHNOLOGIST HEMOGLOBIN A1C, B Routine 07/19/2024 12:25 AM ENGINEERING TECHNOLOGIST ECG STAT 07/19/2024 12:02 AM ENGINEERING TECHNOLOGIST ALBUMIN, RANDOM, U Routine 12/22/2014 4: 10 PM CDT from Last 3 Months or Most Recently Relevant to Health Maintenance Results * (ABNORMAL) Basic Metabolic Panel (07/22/2024 1:56 PM ENGINEERING TECHNOLOGIST) Only the most recent of3 resultswithin the time period is included. Potassium, S 4.1 3.6 - 5.2 mmol/L 07/22/2024 3:04 PM ENGINEERING TECHNOLOGIST DTL Sodium, S 142 135 - 145 mmol/L 07/22/2024 3:04 PM ENGINEERING TECHNOLOGIST DTL Chloride, S 106 98 - 107 mmol/L 07/22/2024 3:04 PM ENGINEERING TECHNOLOGIST DTL Bicarbonate, S 23 22 - 29 mmol/L 07/22/2024 3:04 PM ENGINEERING TECHNOLOGIST DTL Anion Gap 13 7 - 15 07/22/2024 3:04 PM ENGINEERING TECHNOLOGIST DTL BUN (Blood Urea Nitrogen), S 23 8 - 24 mg/dL 07/22/2024 3:04 PM ENGINEERING TECHNOLOGIST DTL Creatinine 1.76(H) 0.74 - 1.35 mg/dL 07/22/2024 3:04 PM ENGINEERING TECHNOLOGIST DTL Estimated GFR (eGFR) 39(L) >=60 mL/min/BSA 07/22/2024 3:04 PM ENGINEERING TECHNOLOGIST DTL Comment: Estimated GFR calculated using the 2020 CKD_EPI creatinine equation. Calcium, Total, S 9.2 8.8 - 10.2 mg/dL 07/22/2024 3:04 PM ENGINEERING TECHNOLOGIST DTL Glucose, S 111 70 - 140 mg/dL 07/22/2024 3:04 PM ENGINEERING TECHNOLOGIST DTL Blood (Blood, Venous) 07/22/2024 1:56 PM ENGINEERING TECHNOLOGIST 07/22/2024 2:35 PM ENGINEERING TECHNOLOGIST Viviane Jeffers APRN, C.N.P., D.N.P. LAB BLOOD ADD-ON Final Result Performing Organization Address [facility]/ZIP Co de Phone Number [facility] [address] [place] [address], [facility] DTL [facility] [address] [place] [address] * (ABNORMAL) Glucose, POCT (07/20/2024 11:56 AM ENGINEERING TECHNOLOGIST) Only the most recent of6 resultswithin the time period is included. [facility] Glucose, POCT, B 220(H) 70 - 140 mg/dL 07/20/2024 12:00 PM ENGINEERING TECHNOLOGIST PCLX Site Capillary 07/20/2024 12:00 PM ENGINEERING TECHNOLOGIST PCLX Last Intake 2-3 hours 07/20/2024 12:00 PM ENGINEERING TECHNOLOGIST PCLX Blood 07/20/2024 11:5 6 AM ENGINEERING TECHNOLOGIST 07/20/2024 12:00 PM ENGINEERING TECHNOLOGIST us Unknown Provider LAB POCT ORDERABLES-MANUAL Lela l Result Performing Organization Address [facility] Co de Phone Number POC [facility] [address] [place] [address], [facility] PCLX [facility] [address] [place] [address] * (ABNORMAL) CBC with Differential, Blood (07/20/2024 8:19 AM ENGINEERING TECHNOLOGIST) Only the most recent of2 resultswithin the time period is included. [facility] Hemoglobin 11.3(L) 13.2 - 16.6 g/dL 07/20/2024 9:04 AM ENGINEERING TECHNOLOGIST DTL Hematocrit 33.7(L) 38.3 - 48.6 % 07/20/2024 9:04 AM ENGINEERING TECHNOLOGIST DTL Erythrocytes 3.53(L) 4.35 - 5.65 x10(12)/L 07/20/2024 9:04 AM ENGINEERING TECHNOLOGIST DTL MCV 95.5 78.2 - 97.9 fL 07/20/2024 9:04 AM ENGINEERING TECHNOLOGIST DTL RBC Distrib Width 15.8(H) 11.8 - 14.5 % 07/20/2024 9:04 AM ENGINEERING TECHNOLOGIST DTL Platelet Count 120(L) 135 - 317 x10(9)/L 07/20/2024 9:04 AM ENGINEERING TECHNOLOGIST DTL Leukocytes 3.8 3.4 - 9.6 x10(9)/L 07/20/2024 9:04 AM ENGINEERING TECHNOLOGIST DTL Neutrophils 2.33 1.56 - 6.45 x10(9)/L 07/20/2024 9:04 AM ENGINEERING TECHNOLOGIST DHPM Lymphocytes 0.85(L) 0.95 - 3.07 x10(9)/L 07/20/2024 9:04 AM ENGINEERING TECHNOLOGIST DTL Monocytes 0.49 0.26 - 0.81 x10(9)/L 07/20/2024 9:04 AM ENGINEERING TECHNOLOGIST DTL Eosinophils 0.03 0.03 - 0.48 x10(9)/L 07/20/2024 9:04 AM ENGINEERING TECHNOLOGIST DTL Basophils 0.05 0.01 - 0.08 x10(9)/L 07/20/2024 9:04 AM ENGINEERING TECHNOLOGIST DTL Blood (Blood, Venous) 07/20/2024 8:19 AM ENGINEERING TECHNOLOGIST 07/20/2024 8:52 AM ENGINEERING TECHNOLOGIST Viviane Jeffers APRN, C.N.P., D.N.P. LAB BLOOD ADD-ON Final Result [facility] [address] [place] [address], [facility] DTL [facility] [address] [place] [address] DHPM [facility] [address] [place] [address] * Phosphorus Inorganic (07/20/2024 8:19 AM ENGINEERING TECHNOLOGIST) Only the most recent of2 resultswithin the time period is included. Phosphorus (Inorganic), S 2.6 2.5 - 4.5 mg/dL 07/20/2024 9:24 AM ENGINEERING TECHNOLOGIST DTL Blood (Blood, Venous) 07/20/2024 8:19 AM ENGINEERING TECHNOLOGIST 07/20/2024 9:07 AM ENGINEERING TECHNOLOGIST Viviane Jeffers APRN, C.N.P., D.N.P. LAB BLOOD ADD-ON Final Result Performing Organization Address City/[facility] Co de Phone Number [facility] [address] [place] [address] * Magnesium (07/20/2024 8:19 AM ENGINEERING TECHNOLOGIST) Only the most recent of2 resultswithin the time period is included. Magnesium, S 2.2 1.7 - 2.3 mg/dL 07/20/2024 9:24 AM ENGINEERING TECHNOLOGIST DTL Blood (Blood, Venous) 07/20/2024 8:19 AM ENGINEERING TECHNOLOGIST 07/20/2024 9:07 AM ENGINEERING TECHNOLOGIST Viviane Jeffers APRN C.N.P., D.N.P. LAB BLOOD ADD-ON Final Result Performing Organization Address [facility] Co de Phone Number [facility] [address] [place] [address] * DX Chest Portable 1 View (07/20/2024 7:44 AM ENGINEERING TECHNOLOGIST) Anatomical Region Laterality Modality Chest, Thoracic RST LOS, Tho racic ARZ LOS, Thoracic FLA LOS N/A Digital Radiography Impressions 07/20/2024 7:55 AM ENGINEERING TECHNOLOGIST Expansile lesion with minimally displaced fracture in the lateral right sixth rib. Slight atelectasis left base. Chest otherwise negative. Narrative 07/20/2024 7:55 AM ENGINEERING TECHNOLOGIST EXAM: DX CHEST PORTABLE 1 VIEW Procedure Note Ronaldo Martinez M.D. - 07/20/2024 EXAM: DX CHEST PORTABLE 1 VIEW IMPRESSION: Expansile lesion with minimally displaced fracture in the lateral rightsixth rib. Slight atelectasis left base. Chest otherwise negative. Viviane Jeffers APRN, C.N.P., D.N.P. IMG DIAGNO STIC IMAGING PROCEDURES Final Result * DX Pelvis 1-2 Views (07/19/2024 2:33 PM ENGINEERING TECHNOLOGIST) Anatomical Region Laterality Modality Pelvis, Musculoskeletal RST LOS, Musculoskeletal ARZ LOS, Muskuloskeletal FLA LOS N/A Digital Radiography Impressions 07/19/2024 2:48 PM ENGINEERING TECHNOLOGIST Diffuse demineralization. No definite acute displaced fracture or traumatic misalignment. Excreted contrast in the bladder. Left iliac lucent lesion better characterized on same day CT. Narrative 07/19/2024 2:48 PM ENGINEERING TECHNOLOGIST EXAM: DX PELVIS 1-2 VIEWS Procedure Note Tre Rodriguez D.O. - 07/19/2024 EXAM: DX PELVIS 1-2 VIEWS IMPRESSION: Diffuse demineralization. No definite acute displaced fracture ortraumatic misalignment. Excreted contrast in the bladder. Left iliaclucent lesion better characterized on same day CT. Viviane Jeffers APRN, C.N.P., D.N.P. [facility] DIAGNO STIC IMAGING PROCEDURES Final Result * DX Femur Left 2 Views (07/19/2024 2:33 PM ENGINEERING TECHNOLOGIST) Anatomical Region Laterality Modality Lower Extremity, Femur, Musc uloskeletal RST LOS, Musculoskeletal ARZ LOS, Muskuloskeletal FLA LOS Left Digit al Radiography Impressions 07/19/2024 3:00 PM ENGINEERING TECHNOLOGIST Diffuse demineralization and degenerative changes. No significant joint effusion. No definite acute displaced fracture or traumatic misalignment. Narrative 07/19/2024 3:00 PM ENGINEERING TECHNOLOGIST EXAM: DX FEMUR LEFT 2 VIEWS Procedure Note Tre Rodriguez D.O. - 07/19/2024 EXAM: DX FEMUR LEFT 2 VIEWS IMPRESSION: Diffuse demineralization and degenerative changes. No significant jointeffusion. No definite acute displaced fracture or traumaticmisalignment. us Viviane Jeffers APRN, C.N.P., D.N.P. IM DIAGNO STIC IMAGING PROCEDURES Final Result * DX Chest AP or PA and Lateral 2 Views (07/19/2024 2:33 PM ENGINEERING TECHNOLOGIST) Anatomical Region Laterality Modality Chest, Thoracic RST LOS, Tho racic ARZ LOS, Thoracic FLA LOS N/A Digital Radiography Impressions 07/19/2024 2:47 PM ENGINEERING TECHNOLOGIST No focal consolidation. No large pleural effusion or discernible pneumothorax. Stable cardiac silhouette size. No rib fractures better characterized on same day CT chest. Narrative 07/19/2024 2:47 PM ENGINEERING TECHNOLOGIST EXAM: DX CHEST AP OR PA AND LATERAL 2 VIEWS Procedure Note Tre Rodriguez D.O. - 07/19/2024 EXAM: DX CHEST AP OR PA AND LATERAL 2 VIEWS IMPRESSION: No focal consolidation. No large pleural effusion or discerniblepneumothorax. Stable cardiac silhouette size. No rib fractures bettercharacterized on same day CT chest. Viviane Jeffers APRN, C.N.P., D.N.P. IMG DIAGNO STIC IMAGING PROCEDURES Final Result * Electrophoresis, Protein, Random, Urine (07/19/2024 1:39 PM ENGINEERING TECHNOLOGIST) Protein, Total, Random, U 4 mg/dL 07/19/2024 3:58 PM ENGINEERING TECHNOLOGIST DTL Creatinine, Random, U 39 16 - 326 mg/dL 07/19/2024 3:58 PM ENGINEERING TECHNOLOGIST DTL Protein/Creati nine Ratio 0.10 <0.18 mg/mg 07/19/2024 3:58 PM ENGINEERING TECHNOLOGIST DTL Albumin, mg/dL 0.8 mg/dL 07/23/2024 8:15 AM ENGINEERING TECHNOLOGIST SDSC Alpha-1 globulin, mg/dL 0.4 mg/dL 07/23/2024 8:15 AM ENGINEERING TECHNOLOGIST SDSC Alpha-2 globulin, mg/dL 1.0 mg/dL 07/23/2024 8:15 AM ENGINEERING TECHNOLOGIST SDSC Beta globulin, mg/dL 0.9 mg/dL 07/23/2024 8:15 AM ENGINEERING TECHNOLOGIST SDSC Gamma globulin, mg/dL 0.9 mg/dL 07/23/2024 8:15 AM ENGINEERING TECHNOLOGIST SDSC A/G Ratio 0.25 07/23/2024 8:15 AM ENGINEERING TECHNOLOGIST SDSC Impression All fractions present, no apparent M-spike. 07/23/2024 8:15 AM ENGINEERING TECHNOLOGIST SDSC Urine (Urine, Midstream) 07/19/2024 1:39 PM ENGINEERING TECHNOLOGIST 07/21/2024 6:18 AM ENGINEERING TECHNOLOGIST us Viviane Jeffers APRN, C.N.P., D.N.P. LAB URINE ORDERABLES Final Result [facility] [address] [place] [address] [facility] [address] [place] [address] [facility] [address] [facility] [address] [place] [address] * CT Thoracic and Lumbar Spine by Reconstruction (07/19/2024 2:56 AM ENGINEERING TECHNOLOGIST) Anatomical Region Laterality Modality Thoracic Spine, Neuroradiolo gy RST LOS, Neuroradiology ARZ LOS, Neuroradiology FLA LOS N/A Computed Tomography, Compute d Tomography Impressions 07/19/2024 8:12 AM ENGINEERING TECHNOLOGIST 1. Age-indeterminate compression fracture of T12 with [...] will reported separately. Narrative 07/19/2024 8:12 AM ENGINEERING TECHNOLOGIST EXAM: CT THORACIC AND LUMBAR SPINE BY [...] chest, abdomen, andpelvis which will reported separately. us Winston Spivey M.D. [facility] CT PROCEDURES Final Result * CT Abdomen Pelvis with IV Contrast (07/19/2024 2:56 AM ENGINEERING TECHNOLOGIST) Anatomical Region Laterality Modality Abdomen, Pelvis, Abdominal R ST LOS, Abdominal ARZ LOS, Abdominal FLA LOS N/A Computed Tomograp hy, Computed Tomography 07/19/2024 2:48 AM ENGINEERING TECHNOLOGIST Impressions 07/19/2024 8:15 AM ENGINEERING TECHNOLOGIST 1. Acute appearing nondisplaced fracture involving the [...] the thoracic spine. Narrative 07/19/2024 8:15 AM ENGINEERING TECHNOLOGIST EXAM: CT CHEST WITH IV CONTRAST, CT [...] regardingthe compression fracture in the thoracic spine. us Winston Spivey M.D. IMG CT PROCEDURES Final Result * CT Cervical Spine without IV Contrast (07/19/2024 2:56 AM ENGINEERING TECHNOLOGIST) Anatomical Region Laterality Modality Cervical Spine, Neuroradiolo gy RST LOS, Neuroradiology ARZ LOS, Neuroradiology FLA LOS N/A Computed Tomography, Compute d Tomography 07/19/2024 2:33 AM ENGINEERING TECHNOLOGIST Impressions 07/19/2024 8:03 AM ENGINEERING TECHNOLOGIST 1. Technically limited exam due to motion artifact and osteopenia. 2. No definite CT evidence of acute fracture or traumatic malalignment in the cervical spine. Rotatory and posterior subluxation of C1 on C2 is favored to be positional but should be correlated clinically. 3. Overall moderate cervical spondylosis, as described. Narrative 07/19/2024 8:03 AM ENGINEERING TECHNOLOGIST EXAM: CT CERVICAL SPINE WITHOUT IV CONTRAST [...] 3. Overall moderate cervical spondylosis, as described. us Winston Spivey M.D. [facility] CT PROCEDURES Final Result * CT Chest with IV Contrast (07/19/2024 2:56 AM ENGINEERING TECHNOLOGIST) Anatomical Region Laterality Modality Chest, Thoracic RST LOS, Tho racic ARZ LOS, Thoracic ARZ LOS, Thoracic FLA LOS N/A Computed Tomography, Compute d Tomography 07/19/2024 2:47 AM ENGINEERING TECHNOLOGIST Impressions 07/19/2024 8:15 AM ENGINEERING TECHNOLOGIST 1. Acute appearing nondisplaced fracture involving the [...] the thoracic spine. Narrative 07/19/2024 8:15 AM ENGINEERING TECHNOLOGIST EXAM: CT CHEST WITH IV CONTRAST, CT [...] regardingthe compression fracture in the thoracic spine. us Winston LEAL CT PROCEDURES Final Result * CT Head without IV Contrast (07/19/2024 2:56 AM ENGINEERING TECHNOLOGIST) Anatomical Region Laterality Modality Head, Neuroradiology RST [facility] , Neuroradiology ARZ [facility], Neuroradiology [facility] N/A Computed Tomography, Compute d Tomography 07/19/2024 2:33 AM ENGINEERING TECHNOLOGIST Impressions 07/19/2024 7:57 AM ENGINEERING TECHNOLOGIST 1. No acute traumatic intracranial findings. 2. Scattered small calvarial lucencies, possibly related to the patient's multiple myeloma (currently in remission). Narrative 07/19/2024 7:57 AM ENGINEERING TECHNOLOGIST EXAM: CT HEAD WITHOUT IV CONTRAST COMPARISON: [...] cells are well aerated. Dental extractions and judaism hardware. Scattered small lucencies throughout the calvarium [...] air cells are well aerated.Dental extractions and judaism hardware. Scattered small lucencies throughout the calvarium that could reflect achronic manifestation of the patient's known multiple myeloma. IMPRESSION: 1. No acute traumatic intracranial findings. 2. Scattered small calvarial lucencies, possibly related to the patient'smultiple myeloma (currently in remission). Winston Spivey M.D. [facility] CT PROCEDURES Final Result * (ABNORMAL) Ethanol Level, Serum (07/19/2024 12:32 AM ENGINEERING TECHNOLOGIST) Ethanol, S 175(H) <10 mg/dL 07/19/2024 1:1 4 AM ENGINEERING TECHNOLOGIST DTL Blood (Blood, Venous) 07/19/2024 12:32 AM ENGINEERING TECHNOLOGIST 07/19/2024 12:55 AM ENGINEERING TECHNOLOGIST Winston Spivey M.D. LAB BLOOD NON ADD- ON Final Result Performing Organization Address [facility]/ZIP Co de Phone Number [facility] [address] [place] [address], [facility] [address] [place] [address] * (ABNORMAL) Hepatic Function Panel (07/19/2024 12:32 AM ENGINEERING TECHNOLOGIST) Bilirubin, Total, S 0.4 0.0 - 1.2 mg/dL 07/19/2024 1:14 AM ENGINEERING TECHNOLOGIST DTL Bilirubin, Direct, S <0.2 0.0 - 0.3 mg/dL 07/19/2024 1:14 AM ENGINEERING TECHNOLOGIST DTL Aspartate Aminotransferase (AST), S 22 8 - 48 U/L 07/19/2024 1:14 AM ENGINEERING TECHNOLOGIST DTL Alanine Aminotransferase (ALT), S 21 7 - 55 U/L 07/19/2024 1:14 AM ENGINEERING TECHNOLOGIST DTL Alkaline Phosphatase, S 114 40 - 129 U/L 07/19/2024 1:14 AM ENGINEERING TECHNOLOGIST DTL Albumin, S 3.7 3.5 - 5.0 g/dL 07/19/2024 1:14 AM ENGINEERING TECHNOLOGIST DTL Protein, Total, S 5.4(L) 6.3 - 7.9 g/dL 07/19/2024 1:14 AM ENGINEERING TECHNOLOGIST DTL Blood (Blood, Venous) 07/19/2024 12:32 AM ENGINEERING TECHNOLOGIST 07/19/2024 12:55 AM ENGINEERING TECHNOLOGIST us Winston Spivey M.D. LAB BLOOD ADD-ON F inal Result Performing Organization Address City/[facility]/ZIP Co de Phone Number [facility] [address] [place] [address], [place] DTL [facility] [address] [place] [address] * (ABNORMAL) Hemoglobin A1c (07/19/2024 12:25 AM ENGINEERING TECHNOLOGIST) Hemoglobin A1c, B 7.6(H) 4.0 - 5.6 % 07/19/2024 11:00 AM ENGINEERING TECHNOLOGIST DTL Comment: Hemoglobin A1c values greater than or equal to 6.5 percent are diagnostic for diabetes mellitus. Diagnosis should be confirmed by repeat testing. In diabetic patients, HbA1c goals should be discussed with healthcare provider. Blood (Blood, Venous) 07/19/2024 12:25 AM ENGINEERING TECHNOLOGIST 07/19/2024 8:52 AM ENGINEERING TECHNOLOGIST us Daisha Barros M.D. LAB BLOOD ADD-O N Final Result [address] [address], [place] [address] * ECG 12 Lead (07/19/2024 12:02 AM ENGINEERING TECHNOLOGIST) Ventricular Rate ECG/Min 100 BPM MUSE OR Interval 228 ms MUSE QRSD Interval 112 ms MUSE QT Interval 364 ms MUSE QTC Interval 469 ms MUSE P [place] 36 degrees MUSE R [place] -54 degrees MUSE T Wave [place] 82 degrees MUSE 07/19/2024 12:0 2 AM ENGINEERING TECHNOLOGIST 07/19/2024 12:13 AM ENGINEERING TECHNOLOGIST Impressions MUSE - 07/19/2024 12:13 AM ENGINEERING TECHNOLOGIST Sinus rhythm with 1st degree A-V block [...] 10:12, Significant changes have occurred Reviewed by Adilene Livingston, CRAT us Winston Spivey M.D. ECG ORDERABLES Fi nal Result MUSE NA * (ABNORMAL) Microalbumin, Random, Urine (12/22/2014 4:10 PM CDT) HXU Albumin % 27.4 MGL POWERCHART Creatinine, Random, U 99.5 MGDL POWERCHART Albumin/Creatin ine Ratio 28(H) 0 - 17 MGG POWERCHART Urine 12/22/2014 4:10 PM CDT Pop Heard M.D. LAB URINE ORDERABLES Final Res ult POWERCHART from Last 3 Months or Most Recently Relevant to Health Maintenance Additional Health Concerns Infection Onset Date Last Indicated Protective Environment 07/18/2024 Insurance [employer] Advance Directives For more information, please contact: [phone] * Full Code (Latest Code Status on File) Date Activated Date Inactivated Comments 07/19/2024 7:07 AM 07/20/2024 4:50 PM Question Answer Comments Full Code: Discussed Care Teams Bolt Cutter Relationship Specialty Start Date End Date None Reported, Pcp PCP - General Family Medicine 07/19/24
--- OUTSIDE RECORDS SUMMARY | 2024-07-30 06:32 | XMS_ITS | Encounter Summary ---
Author Organization [facility] Address [address] [place] [id number] Care Team Providers Care Internet Database Specialist Name Role Phone None Reported, Pcp Primary Care Provider Unavail able Reason for Referral * Outpatient (Routine) - Authorized Specialty Diagnoses / Procedures Referred By Debbie t Referred To Contact Internal Medicine / General Internal Medicine Diagnoses Failure Renal Acute (Acute Kidney Injury) (HCC) Alcohol Abuse With Intoxication Unspecified (HCC) Mami Momin P.A.-C. [address] [place] [phone] Phone: tel: fax: [facility] Referral ID Status Reason Start Date Expiration Date V isits Requested Visits Authorized [id number] Authorized 07/23/2024 01/22/2026 1 1 NG MACHINE OPERATOR Encounter Details Date Type Department Care Team (Late st Contact Info) Description 07/23/2024 Clinical Communication Department of Hospital Internal Medicine in [place], [place] [address] [place] [phone] Mami Momin P.A.-C. [address] [place] [phone] Social History Tobacco Use Types Packs/Day Years Used Date Smoking Tobacco: Former Smokeless Tobacco: Never Alcohol Use Standard Drinks/Week Comments Yes 0 (1 standard drink = 0.6 oz pur e alcohol) [facility] Utilities Answer Date Recorded In the past 12 months has [employer], gas, oil, or water company threatened to [...] your living situation today? 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 [address] [place] [phone] 07/31/2024 12:00 PM SPRING MACHINE OPERATOR Appointment Department of Laboratory Medicine and Pathology, [facility] in [place], [place] [address] [place] [address] Mami Momin P.A.-C. [address] [place] [phone] 07/31/2024 3:30 PM SPRING MACHINE OPERATOR Office Visit Department of Hospital Internal Medicine in [place], [place] [address] [place] [phone] Mami Momin P.A.-C. [address] [place] [phone] Scheduled Orders Name Type Priority Associated Diagnoses Orde r Schedule Basic Metabolic Panel Lab Routine Failure Renal Acute (Acute Kidney Injury) (HCC) Alcohol Abuse With Intoxication Unspecified (HCC) Expected: 07/29/2024, Expires: 10/21/2025 Sodium, Random, Urine Lab Routine Failure Renal Acute (Acute Kidney Injury) (HCC) Alcohol Abuse With Intoxication Unspecified (HCC) Expected: 07/29/2024, Expires: 10/21/2025 Urinalysis, with Microscopic: Urine, Midstream Lab Routine Failure Renal Acute (Acute Kidney Injury) (HCC) Alcohol Abuse With Intoxication Unspecified (HCC) Expected: 07/23/2024 (Approximate), Expires: 10/21/2025 Scheduled Referrals Name Type Priority Associated Diagnoses Orde r Schedule Hospital Internal Medicine office visit (clinic) Outpatient Referral Routine Failure Renal Acute (Acute Kidney Injury) (HCC) Alcohol Abuse With Intoxication Unspecified (HCC) Expected: 07/29/2024, Expires: 10/21/2025 documented as of this encounter Visit Diagnoses Diagnosis Failure Renal Acute (Acute Kidney Injury) (HCC)- Primary Alcohol Abuse With Intoxication Unspecified (HCC) documented in this encounter Additional Health Concerns Infection Onset Date Last Indicated Resolved Time Protective Environment 07/18/2024 07/18/2024 documented as of this encounter Care Teams Internet Database Specialist Relationship Specialty Start Date End Date None Reported, Pcp PCP - General Family Medicine 07/19/24 documented as of this encounter
--- OUTSIDE RECORDS SUMMARY | 2024-07-30 06:32 | XMS_ITS | Encounter Summary ---
Author Organization [facility] Address [address] [place] [address] Care Team Providers Care [employer] Name Role Phone None Reported, Pcp Primary Care Provider Unavail able Reason for Visit * Outpatient (Routine) - Closed Specialty Diagnoses / Procedures Referred By Debbie das Referred To Contact Internal Medicine / General Internal Medicine Diagnoses Failure Renal Acute (Acute Kidney Injury) (HCC) Nidia Avilez P.ALakeshia-CLakeshia [address] [place] [phone] Phone: tel: fax: [facility] Referral ID Status Reason Start Date Expiration Date Visits Re quested Visits Authorized [id number] Closed 07/22/2024 01/21/2026 1 1 Encounter Details Date Type Department Care Team (Late st Contact Info) Description 07/23/2024 9:00 AM ENCYCLOPEDIA RESEARCH WORKER Office Visit Department of Hospital Internal Medicine in [place], [place] [address] [place] [phone] Nidia Avilez P.A.-C. [address] [place] [phone] Mami Momin P.A.-C. [address] [place] [phone] Failure Renal Acute (Acute Kidney Injury) (HCC) Social History Tobacco Use Types Packs/Day Years Used Date Smoking Tobacco: Former Smokeless Tobacco: Never Alcohol Use Standard Drinks/Week Comments Yes 0 (1 standard drink = 0.6 oz pur e alcohol) [facility] Utilities Answer Date Recorded In the past 12 months has e [employer], [employer], oil, or water [employer] threatened to shut off services in your [...] your living situation today? I have a [facility] place to live 07/19/2024 Sex and Gender Information Value Date Recorded Sex Assigned at Not on file Legal Sex Male 6:12 AM ENCYCLOPEDIA RESEARCH WORKER Gender Identity Not on file Sexual Orientation Not on file documented as of this encounter Progress Notes * Mami Momin P.A.-C. - 07/23/2024 9:00 AM CST DATE OF MALIKA VISIT TYPE: PHONE-VISIT: 07/23/24 HOSPITAL: [facility] DISCHARGE DATE: 07/20/24 DISCHARGING HIM SERVICE: Medicine 7 REMOTE PATIENT MONITORING: N/A Consult conducted via real-time telephone/audio technology in [facility] to the patient in Patient's Home The patient's legally authorized financial services sales representative was present N/A SUBJECTIVE Power Piña feels that he is doing well at home. Denies any concern for me. He is drinking and eating well but does drink a lot of Coke. Denies any recent alcohol intake. He has been urinating fine at baseline. Denies any urinary frequency or urgency. I have reviewed the current medication list. OBJECTIVE PHYSICAL EXAMINATION (what you can assess virtually) General: No acute distress. Mental: Alert and oriented. Responds appropriately to questions. DIAGNOSTICS I have independently reviewed from 07/22 which are significant for: Slight increase in renal function (1.76) Normalized BUN (23) ASSESSMENT / PLAN #1 Failure Renal Acute (Acute Kidney Injury) (HCC) Summary Mr. Power Piña is a 78 year old gentleman who presented to the Emergency Department (ED) aftersustaining a witnessed fall with loss of consciousness, after consuming a large amount of alcohol in a bar. The patient reportedly lost consciousness for about 2-3 minutes. Patient denied other associated injuries. His medical comorbidities are significant for COPD, type 2 diabetes, obesity, CKD stage 3, and multiple myeloma. 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 Mr. Piña was then admitted to the Medicine 7 Service for functional decline and inability to safely ambulate. During his hospitalization he was noted to have an JOSTIN which is likely secondary to hypovolemia andexposure to IV contrast. Oral fluids were encouraged. He was discharged with a Cr of 1.67 with plans to follow up with [facility] team for evaluation of kidney function. Labs completed on 07/21 revealed anincrease Cr to 1.76. Given the minimal increase and that the patient is tolerating oral intake, Power was encouraged to increase fluid intake along avoiding caffeine and alcohol. He was has been scheduled to follow up with his PCP on August 06 at the [facility]. Given that his PCP appointment is 2 weeks away, I would like him to continue oral intake and recheck his kidney function next Friday 07/28 with urine studies to further evaluate his kidney function. Acute kidney function, stable Plan: Encouraged to increase oral intake and avoid caffeine Check renal function panel with urines studies (Cee, Ucr, Urinalysis) scheduled for 07/29/2024 Follow up MALIKA visit on 07/29/2024 PCP appointment scheduled at the [facility] for 08/06/2024 Monitor for decrease urine output, changes in urine, abdominal pain. If these concerning signs occur should be re-evaluated. Mami Momin P.A.-C. Total time spent talking with the patient and coordinating care is 35 minutes. CLOPEDIA RESEARCH WORKER CLOPEDIA RESEARCH WORKER documented in this encounter Plan of Treatment Upcoming Encounters Date Type Department Care Team (Late st Contact Info) Description 07/31/2024 11:50 AM ENCYCLOPEDIA RESEARCH WORKER Appointment Department of Laboratory Medicine and Pathology, [facility] in [place], [place] [address] [place] [phone] Mami Momin P.A.-C. [address] [place] [phone] 07/31/2024 12:00 PM ENCYCLOPEDIA RESEARCH WORKER Appointment Department of Laboratory Medicine and Pathology, [facility] in [place], [place] [address] [place] [phone] Mami Momin P.A.-C. [address] [place] [phone] 07/31/2024 3:30 PM ENCYCLOPEDIA RESEARCH WORKER Office Visit Department of Hospital Internal Medicine in [place], [place] [address] [place] [phone] Mami Momin P.A.-C. [address] [place] [phone] documented as of this encounter Visit Diagnoses Diagnosis Failure Renal Acute (Acute Kidney Injury) (HCC) documented in this encounter Additional Health Concerns Infection Onset Date Last Indicated Resolved Time Protective Environment 07/18/2024 07/18/2024 documented as of this encounter Care Teams [employer] Relationship Specialty Start Date End Date None Reported, Pcp PCP - General Family Medicine 07/19/24 documented as of this encounter
--- OUTSIDE RECORDS SUMMARY | 2024-07-30 06:32 | XMS_ITS | Encounter Summary ---
Author Organization [facility] Address [address] [place] [address] Care Team Providers Care Fine Unhairer Name Role Phone None Reported, Pcp Primary Care Provider Unavail able Encounter Details Date Type Department Care Team (Late st Contact Info) Description 07/23/2024 Clinical Communication Department of Hospital Internal Medicine in [place], [place] [address] [place] [phone] Mami Momin, Carlos-CLakeshia [address] [place] [phone] Social History Tobacco Use Types Packs/Day Years Used Date Smoking Tobacco: Former Smokeless Tobacco: Never Alcohol Use Standard Drinks/Week Comments Yes 0 (1 standard drink = 0.6 oz pur e alcohol) [facility] Utilities Answer Date Recorded In the past 12 months has e [employer], gas, oil, or water [employer] threatened to shut off services in your [...] situation today? 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 [address] [place] [phone] 07/31/2024 12:00 PM OBSTETRICS TECHNICIAN Appointment Department of Laboratory Medicine and Pathology, [facility] in [place], [place] [address] [place] [phone] Mami Momin, P.A.-CLakeshia [address] [place] [phone] 07/31/2024 3:30 PM OBSTETRICS TECHNICIAN Office Visit Department of Hospital Internal Medicine in [place], [place] [address] [place] [phone] Mami Momin P.A.-C. [address] [place] [phone] Scheduled Orders Name Type Priority Associated Diagnoses Orde r Schedule Creatinine, Random, Urine Lab Routine Failure Renal Acute (Acute Kidney Injury) (HCC) Expected: 07/29/2024, Expires: 10/21/2025 documented as of this encounter Visit Diagnoses Diagnosis Failure Renal Acute (Acute Kidney Injury) (HCC)- Primary documented in this encounter Additional Health Concerns Infection Onset Date Last Indicated Resolved Time Protective Environment 07/18/2024 07/18/2024 documented as of this encounter Care Teams Fine Unhairer Relationship Specialty Start Date End Date None Reported, Pcp PCP - General Family Medicine 07/19/24 documented as of this encounter
--- OUTSIDE RECORDS SUMMARY | 2024-07-30 06:32 | XMS_ITS | Clinical Summary ---
Author Organization [facility] Address [place], [place] [address] Care Team Providers Care Supervisor Refractory Products Name Role Phone Arnold, Va Primary Care Provider [phone] Allergies No known active allergies Medications Ferrous Gluconate 325 mg (36 mg iron) tablet Take 325 mg by mouth 3 times daily. Active lisinopril-hydr ochlorothiazide 20-12.5 mg tablet (PRINIZIDE) Take 1 tablet by mouth once daily. Active Mometasone (ASMANEX TWISTHALER) 220 mcg (120 doses) inhaler Inhale by mouth once daily. Active metFORMIN (GLUCOPHAGE) 1,000 mg tablet Take 1,000 mg by mouth 2 times daily with meals. Active OMEGA-3S/DHA/EP A/FISH OIL (OMEGA 3 ORAL) Take 1 capsule by mouth 2 times daily. Active loratadine (CLARITIN) 10 mg tablet Take 10 mg by mouth once daily. Active NAPROXEN ORAL Take by mouth. Active ALBUTEROL INHL Inhale by mouth. 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 Gender Identity Not on file Sexual Orientation [...] Hepatitis C screening for age 18-79 1963 Pneumococcal series for age 50+ (1 of 1 - PCV) 997 Zoster (shingles) series for age 50+ (1 of 2) 08/30/18 97 RSV vaccine for adults or pr egnancy (1 - 1-dose 75+ series) 2021 COVID-19 vaccine series ( - 2023- season) 4 Influenza for age 65+ 03/09/2024 Tetanus booster 05/08/2031 05/08/2021 Tdap Completed 05/08/2021 Insurance MEDICARE PART B HB ONLY MEDICARE PART A HB ONLY MEDICARE PART B HB ONLY [facility] MR/MSHO Advance Directives * Full Code (Latest Code Status on File) Date Activated Date Inactivated Comments 01/28/2015 9:26 AM 01/28/2015 3:59 PM Care Teams Supervisor Refractory Products Relationship Specialty Start Date End Date Hospital, [place] [address] [employer] [place] [phone] PCP - General 01/15/20
--- OUTSIDE RECORDS SUMMARY | 2024-07-30 06:32 | XMS_ITS ---
Author Organization [facility] Address [address] [place] [address] Care Team Providers Care Admitting Counselor Name Role Phone Unavailable Unavailable Unavailable Surgery Details Not on file Complications Check Surgery Details section. Procedure Estimated Blood Loss Check Surgery Details section. Procedure Findings Check Surgery Details section. Procedure Specimens Taken Check Surgery Details section.
--- OUTSIDE RECORDS SUMMARY | 2024-07-30 06:32 | XMS_ITS | Clinical Summary ---
Author Organization [facility] Address [address] [place] [address] Care Team Providers Care Upper Cutter Out Name Role Phone None, Pcp Primary Care [...] 220 MCG/ACT aerosol powder Inhale daily Active Social History Tobacco Use Types Packs/Day Years Used Date Smoking Tobacco: Never Assessed PHQ-2 Answer Date Recorded PHQ-9 Total Score 2 04/09/2024 Sex and Gender Information Value Date Recorded Sex Assigned at Not on file Legal Sex Male 11:52 AM CDT Gender Identity Not on file Sexual Orientation Not on file Plan of Treatment Health Maintenance Due Date Last Done Comments Fall Risk Performed 1963 Pneumococcal Vaccine: 50+ Years (2 of 2 - PCV) 10/09/2008 10/10/2007 DTaP,Tdap,and Td Vaccines (2 - Td or Tdap) 05/08/2031 05/08/2021, 12/21/2005, 1991 Zoster Vaccines Completed 06/11/2023, 10/09/2022, 10/10/2007 COVID-19 Vaccine Completed 03/19/2024, 10/2022, 07/19/2022, Additional history exists Influenza Vaccine Completed 03/19/2024, , 05/22/2007, Additional history exists HPV Vaccines Aged Out No longer eligi ble based on patient's age to complete this topic Insurance [address] [place] [address] [place] [employer] Care Teams Upper Cutter Out Relationship Specialty Start Date End Date None, Pcp [address] [facility] [place] [phone] PCP - General Cyber Forensic Specialist 04/09/24
--- OUTSIDE RECORDS SUMMARY | 2024-07-30 06:33 | XMS_ITS | Encounter Summary ---
Author Organization [facility] Address [address] [place] [address] Care Team Providers Care Director Loss Prevention Name Role Phone None Reported, Pcp Primary Care Provider Unavail able Reason for Visit * Reason Comments Alcohol Intoxication Fall * Auth/Cert (Routine) Specialty Diagnoses / Procedures Referred By Debbie t Referred To Contact Diagnoses Alcohol Abuse With Intoxication Unspecified (HCC) Repeated Falls Procedures Inpatient Referral ID Status Reason Start Date Expiration Date Visits Re quested Visits Authorized [id number] 1 1 Encounter Details Date Type Department Care Team (Latest Contact Info) Description 07/18/2024 11:50 PM IRRIGATION TAX ASSESSOR COLLECTOR - 07/20/2024 2:50 PM IRRIGATION TAX ASSESSOR COLLECTOR Hospital Encounter [facility], [facility], [facility], Fourth Floor [address] [place] [address] Selvin Kahn D.O. [address] [place] [id number] Alcohol Abuse With Intoxication Unspecified (HCC) (Primary Dx); Repeated Falls; Decline Functional Status [R53.81] Discharge Disposition: Home or Self Care Social History Tobacco Use Types Packs/Day Years Used Date Smoking Tobacco: Former Smokeless Tobacco: Never Alcohol Use Standard Drinks/Week Comments Yes 0 (1 standard drink = 0.6 oz pur e alcohol) [facility] Utilities Answer Date Recorded In the past 12 months has e electric, gas, oil, or water company threatened [...] your living situation today? I have a [facility] place to live 07/19/2024 Sex and Gender Information Value Date Recorded Sex Assigned at Not on file Legal Sex Male 6:12 AM IRRIGATION TAX ASSESSOR COLLECTOR Gender Identity Not on file Sexual Orientation Not on file documented as of this encounter Last Filed Vital Signs Vital Sign Reading Time Taken Comments Blood Pressure 109/64 07/20/2024 6:05 AM IRRIGATION TAX ASSESSOR COLLECTOR Pulse 82 07/20/2024 6:05 AM IRRIGATION TAX ASSESSOR COLLECTOR Temperature 36.6 C (97.9 F) 07/20/2024 6:05 AM IRRIGATION TAX ASSESSOR COLLECTOR Respiratory Rate 16 07/20/2024 6:05 AM IRRIGATION TAX ASSESSOR COLLECTOR Oxygen Saturation 92% 07/20/2024 6:05 AM IRRIGATION TAX ASSESSOR COLLECTOR Inhaled Oxygen Concentration - - Weight 95.2 kg (209 lb 14.1 oz) 07/19/2024 5:00 AM IRRIGATION TAX ASSESSOR COLLECTOR Height 172.7 cm (5' 8) 07/19/2024 5:00 AM IRRIGATION TAX ASSESSOR COLLECTOR Body Mass Index 31.91 07/19/2024 5:00 AM IRRIGATION TAX ASSESSOR COLLECTOR documented in this encounter Functional Status * Intimate Partner Violence Question Answer Date of Assessment Author Within the last year, have y ou been humiliated or emotionally abused in other ways by your partner or ex-partner? No 07/19/2024 2:01 PM IRRIGATION TAX ASSESSOR COLLECTOR Kevin Torres M.S.W., Shu. Within the last year, have y ou been afraid of your partner or ex-partner? No 07/19/2024 2:01 PM IRRIGATION TAX ASSESSOR COLLECTOR Kevin Torres M.S .W., JonathonSKeyana. Within the last year, have y ou been raped or forced to have any kind of sexual activity by your partner or ex-partner? No 07/19/2024 2:01 PM IRRIGATION TAX ASSESSOR COLLECTOR Elva Torres M.S.W., JonathonSKeyana. Within the last year, have y ou been kicked, hit, slapped, or otherwise physically hurt by your partner or ex-partner? No 07/19/2024 2:01 PM IRRIGATION TAX ASSESSOR COLLECTOR Elva Torres M.S.W., Breanna.Dale.S.W. documented as of this encounter Discharge Summaries * Viviane Jeffers APRN, C.N.P., D.N.P. - 07/20/2024 12:39 PM CST DISCHARGE SUMMARY BRIEF OVERVIEW [place] [facility] [place]: No att. 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 Physical and Occupational Therapies recommended ongoing rehabilitation. Patient preferred to discharge to home with family support. Depending on patient's functional status, Primary Care Provider (PCP) may consider outpatient physical and occupational therapies to evaluate and treat. -Pain management: acetaminophen, lidocaine ointment as directed. -Continue bronchial hygiene as instructed. -Obtain BMP within 1-2 days of hospital discharge to ensure continued resolution of JOSTIN. PCP to monitor results. PCP follow up appointment within one week from hospital discharge. -Routine glucose monitoring as directed by PCP. -Age-indeterminate compression fracture of T12 with 75% vertebral body height loss centrally and superior endplate compression deformities of T2 and T10 with 10-20% vertebral body height loss, respectively. Findings could reflect sequelae of patient's multiple myeloma and should be corroborated with clinical exam and any additional prior imaging, if available. Outpatient Hematology follow up as per the [facility]. -An indeterminate 6 mm subpleural left lower lobe nodule was noted on CT chest. Radiology suggests repeat CT at 6-12 months; then CT at 18-24 months, if no change. PCP to review prior imaging performed at the [facility] as these reports/imaging were not available during this hospitalization. OUTPATIENT FOLLOW UP For appointment details refer to your Patient Appointment Guide. TEST RESULTS PENDING AT DISCHARGE Pending Labs Order Current Status Electrophoresis, Protein, Random, Urine Preliminary result DETAILS OF HOSPITAL STAY REASON FOR ADMISSION Repeated Falls HOSPITAL COURSE Mr. Power Piña is a 78 year [...] obesity, CKD stage 3, and multiple myeloma. In the ED, he was afebrile and hemodynamically stable. Labs revealed hemoglobin 12.2, platelet count 118, sodium 134, bicarbonate 16, creatinine 1.65. Ethanol level of 175. ECG showed sinus rhythm with 1st degree A-V block and left axis deviation. CT head was negative for acute traumatic intracranial findings. CT chest/abdomen/pelvis/spine showed acute appearing nondisplaced fracture of posteriorright 4th rib, pathologic lateral right sixth rib fracture (lesions appear chronic with central fatattenuation suggestive of treated multiple myeloma), no acute traumatic findings of chest/abdomen/pelvis/spine, an indeterminate 6 mm subpleural left lower lobe nodule, incidental 3 cm ectasia of proximal descending thoracic aorta, and age-indeterminate T12 compression fracture. Chest x-ray was negative for pleural effusion, pneumothorax, consolidation. In the ED, he was administered IV fluids for gentle hydration. Mr. Piña was then admitted to the Medicine 7 Service for functional decline and inability to safely ambulate. Upon admission, Trauma Service evaluated the patient. He was noted to have chest wall (rib) and left thigh pain with ambulation when working with PT/OT. Additional imaging was performed and negative for traumatic injury or fracture. He was initiated on multi-modal pain regimen with acetaminophen and lidocaine patch. PT and OT assessed the patient and recommended ongoing rehabilitation. Patient and family preferred the patient to return to his home with family support. He was noted to have an JOSTIN which is likely secondary to hypovolemia and exposure to IV contrast. Oral fluids were encouraged.Chemical Dependency counseling was offered and the patient declined. Prior to discharge, he was afeb rile, hemodynamically stable, tolerating a general diet, and ambulating independently with a front-wheeled walker. Mr. Piña discharged to home with PCP and outpatient Hematology follow up at the [facility]. MEDICATIONS CHANGED DURING THIS HOSPITAL STAY Medications stopped: none. Medications changed: metformin. Medications added: acetaminophen, lidocaine ointment, [id number]. CONSULTS ORDERED DURING THIS ADMISSION IP CONSULT TO HEMATOLOGY IP CONSULT TO ADDICTION IP CONSULT TO TRAUMA CRITICAL CARE AND GENERAL SURGERY IP CONSULT TO CARE MANAGEMENT CONDITION AT DISCHARGE Stable The above plan of care was discussed with Dr. Baeza, HIM design studio consultant. I saw and evaluated Mr. Power Piña today and provided counseling [id number] at bedside. I personally spent a total of greater than 30 minutes in counseling and coordination of care as described above to facilitate the hospital discharge. Discharge instructions were provided to the patient and caregiver(s). GATION TAX ASSESSOR COLLECTOR GATION TAX ASSESSOR COLLECTOR documented in this encounter Medications at Time of Discharge acetaminophen (TylenoL) 500 mg tablet Take 2 tablets (1,000 mg total) by mouth 3 (three) times a day. For pain relief. May take as needed as pain improves. Do not exceed 3000 mg of acetaminophen (Tylenol) from all sources in 24 hours. 07/20/2024 albuterol 90 mcg/actuation inhaler Inhale 2 puffs every 4 (four) hours as needed for wheezing or shortness of breath. ascorbic acid, vitamin C, (vitamin C) 100 mg tablet Take 100 mg by mouth daily. aspirin [address] tablet Take 81 mg by mouth daily. 10/22/2009 cetirizine (ZyrTEC) 10 mg tablet Take 10 mg by mouth at bedtime as needed for allergies. 12/19/2023 cholecalciferol, vitamin D3, 25 mcg (1,000 Unit) tablet Take 1 tablet by mouth daily. 03/07/2018 cyanocobalamin (Vitamin B-12) 1,000 mcg tablet Take 1 tablet by mouth daily. 04/22/2024 dexAMETHasone (Decadron) 4 mg tablet Take 20 mg by mouth once a week. On Tuesdays docosahexanoic acid/epa (FISH OIL ORAL) Take 1 capsule by mouth daily. 05/12/2008 empagliflozin (Jardiance) 25 mg tablet Take 12.5 mg by mouth daily before morning meal. 03/17/2024 glipiZIDE (GlucotroL) 10 mg tablet Take 10 mg by mouth 2 (two) times a day before morning and evening meals. 12/04/2023 ipratropium-albu teroL (DuoNeb) 0.5-2.5 mg/3 mL nebulizer solution Inhale 3 mL by nebulization 4 (four) times a day as needed for wheezing or shortness of breath. lenalidomide (Revlimid) 10 mg capsule Take 10 mg by mouth daily. Take 1 tablet daily on days 1-21, then off 7 days lidocaine (Xylocaine) 5 % ointment Apply 1 Application topically 3 (three) times a day as needed for pain. Apply to affected area(s) for pain relief. 35 g 07/20/2024 magnesium oxide 420 mg tablet Take 420 mg by mouth 2 (two) times a day. 09/24/2023 metFORMIN (Glucophage) 1,000 mg tablet Take 1 tablet (1,000 mg total) by mouth daily. Hold metformin until evaluated by PCP in the setting of JOSTIN. PCP to obtain BMP 1-2 days to ensure continued JOSTIN resolution and to resume metformin if and when appropriate 07/20/2024 mometasone (Asmanex HFA) 100 mcg/actuation (120) inhaler Inhale 2 puffs 2 (two) times a day. 04/22/2024 multivitamin tablet Take 1 tablet by mouth daily. neomycin-bacitra pietro-polymyxin (Neosporin) 3.5 mg-400 unit-5,000 unit/gram ointment Apply 1 Application topically 2 (two) times a day. Apply to nasal and upper extremity abrasions. 14 g 07/20/2024 potassium-sodium -phosphate (Phos-NaK) 280-160-250 mg per packet Take 1 packet by mouth daily with midday meal. tiotropium-oloda teroL (Stiolto Respimat) 2.5-2.5 mcg/actuation inhaler Inhale 2 puffs daily. 04/22/2024 documented as of this encounter Progress Notes * Elmer Baeza M.D. - 07/19/2024 3:48 PM CST I saw and evaluated Mr. Power Piña on rounds today with our medicine team. I participated and provided the substantive portion of this shared/split visit with Viviane Jeffers NP . I agree with the Advanced-Practice Provider's findings and plan of care, as documented. My assessment and plan areas follows: #1 Diabetes Mellitus Type 2 (HCC) #2 Allergy Seasonal #3 Repeated Falls #4 Multiple Myeloma In Remission (HCC) #5 Chronic Kidney Disease (CKD), Stage 3b Glomerular Filtration Rate (GFR) 30 To 44 (HCC) #6 Chronic Obstructive Pulmonary Disease Exacerbation (HCC) #7 Fracture Rib Multiple Closed Initial Right #8 Alcohol Moderate Or Severe Use Disorder (Dependence) Uncomplicated (HCC) #9 Hyponatremia #10 Obesity Body Mass Index 30-39.9 Adult #11 Osteopenia The Wang notes some R rib pain, otherwise notes he had quite a few alcoholic drinks, moreso than typical, prior to falling. Appreciate TCGS, Heme, PT/OT assessment. CIWA for now, although he doesnot appear to be actively withdrawing. May need SNF for short term rehab. Please refer to my colleague's note dated today for additional details about our team's plan of care. GATION TAX ASSESSOR COLLECTOR * Yareli Feliz, Marylou, R.Ph., BCPS - 07/19/2024 2:13 PM CST Pharmacist Progress Note Reason for admission: Repeated falls, found to have rib fractures PMH: multiple myeloma, osteopenia, alcohol use, T2DM, CKD, COPD, obesity OBJECTIVE Home medications: Held: vits/supps, metformin, glipizide, empagliflozin. Lenalidomide, Changed: -- Patient own medications: -- Prophylaxis: SQH ASSESSMENT / PLAN Rib fractures 2/2 recurrent falls.TCGS consulted, no acute interventions. Pain control with TylenolTID, PRN oxycodone 2.5 mg. Has bowel regimen PRN - change to scheduled if using oxycodone regularly Multiple myeloma. Currently taking lenalidomide, per patient he is currently on his off week but unclear for how long. Will need to confirm once home meds are brought in (see below). No biopsy per heme. [facility] T2DM. A1c 7.6. Aspart correction ordered. Holding home metformin, glipizide, empagliflozin. Target BG < 180 while hospitalized and consider resuming home meds if clinically stable Medication history. Attempted med history with patient and updated [facility] med [facility]. Family member will be bringing in his home meds to help confirm what he is taking. Please adjust inpatient orders as appropriate once these are reviewed Changes to medications anticipated at discharge:-- Yareli Feliz, Malathi., R.Ph., BCPS GATION TAX ASSESSOR COLLECTOR * Robert Baptiste M.D. - 07/19/2024 10:31 AM CST Patient is a 78-year-old male who fell off a bar stool yesterday with loss of consciousness. Alcohol level was 175. Axial imaging shows a right 6th rib fracture and a pathologic hairline right 4th fracture. He has a history of multiple myeloma and is on Revlimid. The patient is a nonsmoker. Patientseen and reviewed with Dr. Bailey. Physical examination: Blood pressure (!) 113/53, pulse 95, temperature 36.5 ??C, temperature source Oral, resp. rate 24, height 172.7 cm, weight 95.2 kg, SpO2 92%. Awake and alert Chest is clear to auscultation. He has an excellent cough effort Heart regular Extremities warm Impression/plan: 78-year-old male with pathologic 4th rib fracture and nondisplaced 6th rib fracture. He has an excellent cough effort and inspiratory effort. We would recommend obtaining follow-up chest x-ray today to ensure he is maintaining pulmonary toilet. Based on my examination I think he is doing well. There is no specific therapy for these rib fractures other than pain medications. Patient was warned that he may have difficulty lying flat due to chest wall discomfort. He does have reclining chairs or so for his at home as well as a hospital bed. GATION TAX ASSESSOR COLLECTOR * Viviane Jeffers APRN, C.N.P., D.N.P. - 07/19/2024 9:05 AM CST [facility] Medicine 7 ([facility]) Progress Notes SUBJECTIVE Mr. Power Piña is seen and examined with Dr. Baeza on morning rounds. No acute events noted overnight. He is resting comfortably in bed. Endorses right chest wall discomfort, worse with movement.Patient's nephew is present at the bedside during the visit. Patient shares that he recalls consuming alcoholic beverages and falling which led to his hospitalization. He typically consumes 4-6 12 oz. beers a few times a week. He denies having prior falls to yesterday. He does not think he needs to reduce his drinking. He was consuming liquor last evening which is not typical for him. He denies current or prior withdrawal symptoms. He is , father of two daughters and a son ( at 47 years of age from a heart attack), who resides independently at home in a split level home. He does not have any safety concernsof returning to his home. I have reviewed the current medication list. OBJECTIVE VITAL SIGNS Temperature: [36.6 ??C-37.1 ??C] 36.6 ??C Heart Rate: [97-108] 97 Resp Rate: [19-32] 32 Blood Pressure: (104-131)/(56-81) 131/78 SpO2: [86 %-99 %] 95 % Flow Rate (L/min): [2 L/min] 2 L/min Pulse Rate: [65-105] 99 Intake/Output Last 24 Hours: Intake/Output Summary (Last 24 hours) at 07/19/2024 7992 Last data filed at 07/19/2024 0735 Gross per 24 hour Intake -- Output 1200 ml Net -1200 ml PHYSICAL EXAM General: Awake and alert, not in any acute distress Skin: Warm and dry, no rash, scattered ecchymoses on bilateral upper extremities, skin tear ENT: Moist mucous membranes Lungs: Diminished bilaterally without any wheezes, unlabored respirations Heart: Regular rate and rhythm without any appreciated murmurs, without significant lower extremityedema Abdomen: Soft, nontender, nondistended, normoactive bowel sounds Musculoskeletal: Moves extremities purposefully Neuro: Cranial nerves II-XII grossly intact Mental: Mood and affect congruent, attention intact, no evidence of disorganized thinking, CAM negative DIAGNOSTICS I have independently reviewed his laboratory and diagnostic data. ASSESSMENT / PLAN Mr. Piña is hospitalized on [place] [address] ([facility]) for evaluation and management of Repeated Falls. # Repeated Falls # Pathologic Rib Fractures # Multiple Myeloma In Remission (HCC) # Osteopenia # Alcohol Moderate Or Severe Use Disorder (Dependence) Uncomplicated ([facility]) # Hyponatremia # Diabetes Mellitus Type 2 ([facility]) # Chronic Kidney Disease (CKD), Stage 3b Glomerular Filtration Rate (GFR) 30 To 44 ([facility]) # Chronic Obstructive Pulmonary Disease Exacerbation ([facility]) # Obesity Body Mass Index 30-39.9 Adult # Allergy Seasonal # Vitamin B12 Deficiency Mr. Piña has remained afebrile and hemodynamically stable overnight. He had recurrent falls in the setting of alcohol intoxication. No reported fall history prior to 07/18. He has endorsed right chest wall and left thigh pain with activity. He resides at home in a split level home. Will furtherevaluate for falls, chemical dependence, pain, and functional status. -Trauma Service consulted in the setting of rib fractures status post fall with loss of consciousness. Obtain CXR to assess for atelectasis. -PT, OT consulted for a safety evaluation. Patient endorsed left thigh pain when standing. Trauma Service recommended pelvic and left femur x-rays to assess for traumatic injury. Depending on his functional status, he may benefit from short- term rehabilitation upon hospital discharge. -RT consulted for rib fracture protocol. -Pain management: initiate scheduled acetaminophen, lidocaine patch, and oxycodone as needed. Routine bowel regimen to prevent constipation. -Hematology Service consulted for assessment of his multiple myeloma and consideration of biopsy inthe setting of pathologic fractures with multiple myeloma history. -Care Management for trauma, chemical dependency, and discharge planning to a short-term rehabilitation facility. Diet: regular, diabetic Tubes/lines: peripheral IV VTE prophylaxis: heparin subcu Current Activity/Mobility: BMAT Level 4 Fall Injury Prevention: Fall precautions, education Disposition: Short-term rehabilitation Stable to discharge criteria (not yet met): Labs, Functional status, Pain control, Tests/procedures/consults, and Acute care monitoring needs The above plan of care was discussed with Dr. Baeza, HIM design studio consultant. GATION TAX ASSESSOR COLLECTOR documented in this encounter H&P Notes * Daisha Alcala M.B.B.S., M.Ana. - 07/19/2024 5:52 AM CST T Medicine 7 ([facility]) Admission Note SUBJECTIVE CHIEF COMPLAINT/REASON FOR VISIT Does post fall HISTORY OF PRESENT ILLNESS Mr. oPwer Piña is a 78 y.o. male who ho was brought to the emergency department by EMS after an episode of fall, with the associated loss of consciousness, while drinking in a bar. He has past medical history of COPD, Type 2 diabetes mellitus, hyperlipidemia, obesity, hypertension, CKD stage 3, gout, seasonal allergies, multiple myeloma in remission. Per EMS report, the patient has a witnessed fall, with loss of consciousness, after drinking large amount of alcohol in a bar. The patient lost consciousness for about 2-3 minutes. No associated injuries were reported. Upon my encounter with him, he is awake, alert and oriented x3. He mentions that he does not usually drink, was at a [employer] club today where he had too much drink and fell down from the chair, he does not remember exact details of what happened afterwards. He has right-sided chest pain and tenderness, which he is attributing to his rib fracture. His right-sided chest pain started after the fall, worsens with movement. Also has some soreness in both Legs which he is attributing to his falls, he is able to move all his 4 extremities. He mentions having chronic shortness of breath which worsens with exertion, attributing this to hisknown COPD. He also reports having multiple myeloma which is in remission, [facility], and is waiting to receive his lenalidomide capsules Review of system negative for headache, vision change, fever, chills, nausea, vomiting, diarrhea, dysuria. Brief ER course He was noted to slightly tachycardic, otherwise hemodynamically stable. He was noted to be altered, but opening eyes spontaneously with normal motor response. Labs revealed hemoglobin 12.2, platelet count 1 1 8, sodium 134, bicarb 16, anion gap 18, creatinine 1.65, Eth level 175. While the patient is in the ED, he had an episode of fall, when trying to go to the restroom, wherehe sustained a head injury. The injury happened prior to performing the CT scans Noncontrast head CT, CT cervical spine, CT thoracic and lumbar were done, did not showed any acute traumatic findings. CT chest, abdomen and pelvis showed IMPRESSION: 1. Pathologic fracture within the lateral right sixth rib as described. Possible additional lesion within the posterolateral left fourth rib. Tissue sampling is advised. This is technically age indeterminate. No other source of primary malignancy identified in the abdomen or pelvis. 2. Otherwise no acute traumatic findings in the chest, abdomen, or pelvis. 3. Additional indeterminate lucent 2.3 cm lesion within the left iliac bone. 4. A 6 mm subpleural left lower lobe nodule is favored to be atelectatic, though follow-up chest CTin 6-12 months is recommended to ensure resolution/stability. 5. 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 CT thoracic and lumbar spine IMPRESSION: 1. Compression fractures of the T2, T10, and T12 vertebral bodies as described. These are technically age indeterminate and the absence of available comparisons. No osseous retropulsion. The T12 fracture spans the entirety of the superior and inferior endplate with greater than 75% vertebral body height loss. No posterior element involvement. 2. No fracture of the lumbar spine. Given his intoxication and unsteadiness with repeated falls, he was found to be unsafe to be discharged home; hence admission was requested Meds, allergies, medical, surgical, social & family histories have been reviewed & updated as necessary. Current Outpatient Medications on File Prior to Encounter: ASPIRIN ORAL, aspirin 81 mg oral tablet, 07/18/2024 Noon metformin HCl (METFORMIN ORAL), Take 1,000 mg by mouth daily. , 07/18/2024 Noon albuterol (PROVENTIL HFA,VENTOLIN HFA) 90 mcg/actuation inhaler, Take 1-2 puffs by mouth as needed. ascorbic acid, vitamin C, (vitamin C) 100 mg tablet, Take 100 mg by mouth daily. budesonide-formoterol (SYMBICORT) 160-4.5 mcg/actuation inhaler, Inhale 2 puffs 2 (two) times a day. Rinse mouth with water after use to reduce aftertaste and incidence of candidiasis. Do not swallow. clobetasoL (TEMOVATE) 0.05 % ointment, cyclobenzaprine (FLEXERIL) 10 mg tablet, Take 1 tablet (10 mg total) by mouth at bedtime as needed for muscle spasms. docosahexanoic acid/epa (FISH OIL ORAL), Take 1-2 capsules by mouth 2 (two) times a day. lenalidomide (Revlimid) 10 mg capsule, Take 10 mg by mouth daily. Take whole with water. Everyday for 18 days then off 7 naproxen sodium (ALEVE ORAL), Take 2 tablets by mouth as needed. tiotropium (SPIRIVA) 18 mcg inhalation capsule, Inhale 1 capsule daily. OBJECTIVE VITAL SIGNS Temperature: [36.6 ??C-37.1 ??C] 36.6 ??C Heart Rate: [97-108] 97 Resp Rate: [19-32] 32 Blood Pressure: (104-131)/(56-81) 131/78 SpO2: [86 %-99 %] 95 % Flow Rate (L/min): [2 L/min] 2 L/min Height: [172.7 cm] 172.7 cm Weight: [95.2 kg] 95.2 kg BSA (Calculated - sq m): [2.13 sq meters] 2.13 sq meters BMI (Calculated): [31.9 kg/m??] 31.9 kg/m?? Pulse Rate: [65-105] 99 PHYSICAL EXAMINATION General: Awake, alert and oriented x3, no acute distress HEENT: Mucous membranes dry, dried blood seen over nose, no overlying tenderness and pain Skin: Multiple superficial bruises (he is attributing this aspirin) Chest: Right chest tender Heart: Rate rhythm regular Lungs: Diffuse wheezes Abdomen: Soft, nontender, nondistended, bowel sounds present Lower extremities: Mild soreness of both thighs, able to lift both lower extremities against gravity and able to bear weight DIAGNOSTICS I have independently reviewed recent events, vitals and labs ASSESSMENT / PLAN 78-year-old male with past medical history of COPD, type 2 diabetes, obesity, CKD stage 3, multiplemyeloma was brought in instead of intoxication after fall. # Repeated Falls # Alcohol Abuse With Intoxication Unspecified # Fracture Rib Multiple Closed Initial Right, likely pathologic # Multiple Myeloma In Remission # Indeterminate lucent 2.3 cm lesion within the left iliac bone. It appears that he had fall and probably lost consciousness in setting of alcohol intoxication. Trauma imaging done in ER shows pathologic fracture lateral right 6th rib, possible additional lesion with posterolateral left 4th rib, tissue sampling is advised. He does mentions that his right chest pain started after a fall, traumatic rib fracture is a possibly; however imaging is suggesting it is pathologic Clinically he appears dehydrated Plan -IV fluid resuscitation -pain management with Tylenol and Voltaren gel, incentive spirometry every 1 hour while awake -hematology consultation regarding recommendation for tissue sampling inpatient versus outpatient -PT OT evaluation before discharge # Chronic Obstructive Pulmonary Disease Exacerbation (HCC) # hypoxia He is currently wheezing and also requiring supplemental oxygen Plan -albuterol nebs p.r.n., continue home Symbicort inhaler -prednisone 40 mg daily for 5 days # Diabetes Mellitus Type 2 (HCC) -hold home dose of metformin, monitor blood sugars before every meal and bedtime, treat hyperglycemia with mild insulin sliding scale. Blood sugar goal 120-140 during hospitalization -add on HbA1c # Chronic Kidney Disease (CKD), Stage 3b Glomerular Filtration Rate (GFR) 30 To 44 (HCC) -monitor renal functions, avoid nephrotoxic drugs # Pulmonary nodule 6 mm subpleural left lower lobe nodule is favored to be atelectatic, though follow-up chest CT in 6-12 months is recommended to ensure resolution/stability DIET: Diabetic diet TUBES/LINES: Lines, Drains, and Airways Peripheral IV Duration Peripheral IV 07/19/24 20 G Right Hand 7h Peripheral IV 07/19/24 20 G Left Antecubital 6h Wound Duration Wound 07/19/24 Arm Anterior;Lower;Right Skin Tear 1h Wound 07/19/24 Knee Anterior;Right Scrape 1h VTE PROPHYLAXIS: Heparin for DVT prophylaxis CODE STATUS: Full code, discussed with patient DISPOSITION: Uncertain I personally spent a total of 75 minutes providing and coordinating care today. GATION TAX ASSESSOR COLLECTOR GATION TAX ASSESSOR COLLECTOR GATION TAX ASSESSOR COLLECTOR documented in this encounter Consult Notes * Kevin Torres M.SDov, L.G.S.W. - 07/19/2024 2:04 PM CSTAssociated Order(s): IP CONSULT TO ADDICTION; IP CONSULT TO CARE MANAGEMENT; IP CONSULT TO CARE [facility] Psychosocial Assessment SUBJECTIVE ASSESSMENT INFORMATION Referral Data Referral Source: Provider/Service Referral Reason: Psychosocial assessment, Chemical Health assessment, Discharge Planning Previous Assessment: No Film Or Videotape Editor Services Used: No Primary Language: Irish Film Or Videotape Editor Services Used: No Sexuality/Pronoun: he/him Person(s) present during interview: patient and family including patient's daughter, patient's son-in-law, grandson and adult nephew Disclaimer: They were advised of the various topics that will be assessed during this evaluation. They consented to proceed. The information provided in the assessment is based on review of the medical record as well as the face to face interview. They were advised that the content of this interview will be shared with the health care team and documented in the medical record. They were advised that anyone with access to their patient portal will have access to this information. It was discussed that staff are mandated reporters and they reported understanding. HISTORY OF PRESENT ILLNESS Patient stated that he was at the [facility] ???having a few beers?? and that he ???drank too much and fell down ???patient stated that he usually has 2-4 beers when he goes to the [facility] which is about once a week but this time he ended up having a ???hard drink?? and that he knew a patient of done that and ???never does?? and it caused him to ???fall over?? . Please refer to the patient's EMR for all medical history. SOCIAL HISTORY Marital Status: Divorce Family / Household: Patient lives alone but has 3 adult children, 2 of those live in close proximity and the 3rd about 3 years ago. Support System: children and patient has an adult nephew that lives in close proximity to him and is a big support system for the patient. Spirituality/Bahai/Cultural Factors: Gabbi History: Yes, [place] Employment: retired Trauma: forensic social worker had conversation regarding current trauma Social Drivers of Health with Concerns No concerns present Current Stressors Current hospitalization Coping Skills/Strengths Prior level of independence Strong family support system OBJECTIVE FINANCES/INSURANCE Primary insurance: [employer] CHOICE Secondary insurance: N/A Financial concerns: No ADVANCE DIRECTIVES Legal Decision Maker: Self Advance Directives: N/A Advance Directives Status: Not Activated BASELINE FUNCTIONAL STATUS Baseline Activities of Daily Living Mobility: Independent Dressing: Independent Feeding: Independent Bathing: Independent Grooming: Independent Toileting: Independent Behavior: Appropriate, Pleasant, Calm, Cooperative Communication: Can write, Talks, Understands speaking Shopping: Independent Medication Management: Independent Housekeeping: Independent Meal Prep: Independent Assistive Devices: Tub/shower chair/bench, Grab bars - wall BASELINE SERVICES/RESOURCES Primary care clinic and provider: Pcp None Reported Services/Resources: Patient stated that he currently has COPD and skin cancer, patient does not receive any services or resources besides medical care which he stated he is connected to. ANTICIPATED NEEDS Anticipated Needs Functional Status: Tasks appropriate to patient's age/development, None Assistive Devices: Tub/shower chair/bench Anticipated Modifications to the Patient's Home: None Transportation Needs: Independent to drive Does the patient need discharge transport arranged?: No Phone Number for Ride/Caregiver: No phone number given, family will provide transportation unsure which family member at this time. Patient will contact them when he is discharged from the hospital Anticipated Discharge Destination: Home or Self Care MENTAL HEALTH Mental Health History: Patient reports no mental health history Mental Health Treatment History No history of Psychiatric Treatment noted Suicide Risk and Safety Risk Assessment: Patient and family stated patient has no suicidal or homicidal ideations. Suicidal: No Homicidal: No Mental Status: Orientation: Oriented to person, place and time Level of consciousness: Awake and alert Appearance: Age appearing Behavior observed: Calm and Interactive Memory: Excellent based on patient's ability to recall all information requested of him from the assessment questions. Cooperation: Cooperative Mood: , Calm, and Happy Speech: Articulate. Thought process: Logical and goal-directed Review of Psychiatric Symptoms: Sleep/insomnia: no sleep concerns Energy: stable Depression symptoms: no symptoms Trauma response symptoms: no symptoms SUBSTANCE USE Current: Patient stated that he usually goes to his local [facility] about once a week for the ???meat rattle?? and drinks approximately 2-4 beers. Patient and family stated that alcohol use has never deejay problem for the patient accept this time patient stated that he knew he ???drank too much?? causing his fall but stated that it has never been a problem and stated he will not do that again. Patient declined substance use packet. no symptoms ASSESSMENT / PLAN DISCUSSION Social work met with patient, patient's daughter, patient's son-in-law, patient's grandson and his adult nephew by the bedside to provide a supportive visit, complete a psychosocial assessment, chemical dependency assessment and discuss discharge planning. Introduce self and reviewed role as an inpatient forensic social worker. Patient expressed understanding and was agreeable to participate in this visitwith family present. He appeared to be a reliable historian for the purpose of this assessment.Patient stated that he was at the [facility] ???having a few beers?? and that he ???drank too much and fell down ???patient stated that he usually has 2-4 beers when he goes to the [facility] which is about once a week but this time he ended up having a ???hard drink?? and that he knew a patient of done that and ???never does?? and it caused him to ???fall over?? . Please refer to the patient's EMR for all medical history. Prior to admission, patient was residing alone in a split style house. He reports being independentin most ADLs/IADLs, although his 2 adult children and adult nephew visit frequently and assist as needed. He typically does not use any mobility equipment for baseline mobility. He does not utilize any formal services in the home but did state that he is currently experiencing chronic COPD and skincancer but he is connected with a medical team for this. Patient does not utilize oxygen for his COPD. Patient feels he is coping appropriately and denies concerns related to mood/Mental Health, abuse/neglect, suicidal ideation/intent or substance abuse. Patient did state that he understands his hospitalization was due to alcohol use but states that it has never been a problem before and he does not believe it will be an issue after. Family all agreed with this. Patient's alcohol use was assessed, patient declined alcohol use packet and stated that he did not want or need that.Social work provided brief psychoeducation on the effect a traumatic event can have on an individual, including changes in mood/behavior and symptoms of PTSD to be aware of. Patient is currently experiencing the following symptoms related to current traumatic event: None . Social work administered the Injured Trauma Survivors Screening assessment and result was that the patient was not experiencing any symptoms. Patient was were not accepting of trauma resource packet . Injured Trauma Survivors Screening Brief Intervention Strategies Suggested: Patient described his trauma as very minimal and did not have any trauma symptoms. Post Discharge Recommendations: If any trauma symptoms show up later, patient is encouraged to reach out to his medical team. In regards to discharge planning, patient anticipates returning home with his family support. He does not feel he will need additional resources or services upon discharge. His family will continue assisting him as they have been prior to admission. Patient's family will provide transportation oncehe is stable for dismissal. Patient and family expressed gratitude for today's visit and reports no further questions. Additional resources have been declined, including a formal Senior linkage Line referral. Encourage them to contact social Work should additional needs arise. IMPRESSION Patient is a pleasant 78-year-old male admitted to the hospital on 07/18/2024. He was awake, alert engaged in conversation with his family at the time of social visit. He was engaged in discussion and able to maintain eye contact throughout the assessment. He appears to be coping appropriately withhis hospitalization and denies specific mood concerns. His family was attentive at the bedside and remained appropriately involved in his plan of care. Patient and family have all demonstrated insight into his current needs and appears to be planning appropriately for discharge. INTERVENTIONS Comprehensive assessment was completed utilizing solution focused discussion with a strength based approach. Education provided regarding the [place] Senior LinkAge Line. The patient declined referral. PLAN Social Work will sign off at this time as no further Care Management needs have been identified at this time. Please reconsult Care Management if needs are identified. Anticipated barriers to the transition of care/plan: None identified Carmina Espana, Todd 07/19/2024 GATION TAX ASSESSOR COLLECTOR * Gabriela Carr P.Vic, D.P.T. - 07/19/2024 2:00 PM CST Physical Therapy Inpatient Evaluation/Treatment SUBJECTIVE Patient's Name: Power Piña Referring/Attending Provider: Reason for Referral: Physical Therapy Evaluate and Treat Pertinent Medical / Surgical History: has a past medical history of Diabetes Mellitus Type 2 (HCC) (08/07/2007). has a past surgical history that includes other converted shx (see comment) (N/A, 11/05/2006); other converted shx (see comment) (N/A, 06/05/2007); other converted shx (see comment) (N/A, 01/18/2006); and other converted shx (see comment) (N/A, 08/05/1996). History of Present Illness: Power Piña is a 78 y.o. male who was admitted to [facility] in [place] on 07/18/2024 for Alcohol Abuse With Intoxication Unspecified (HCC) [F10.129] Repeated Falls [R29.6]. Relevant Medical History: COPD, Type 2 diabetes mellitus, hyperlipidemia, obesity, hypertension, CKD stage 3, gout, seasonal allergies, multiple myeloma in remission. Precautions Other Precautions: fall risk, right rib fractures Falls screen: Fall in the last 12 months: Yes (reason for admission, no other falls) Did you have an injury with the fall: Yes Are you fearful of falling: No Pain Assessment: Pain Ratin/10 on a 0-10 point scale, Location: left thigh Patient states level of pain is acceptable or tolerable to participate in therapy Pain intervention(s) used to address pain greater than 4: ambulation/activity Patient/Caregiver Goals: Return to highest level of function Subjective Comments: Agreeable to therapy session. Home Living and Equipment: Lives with: Alone Receives help from: Family Type of Home: House Home Layout: Split-Level Home Access: Stairs to enter: Number of steps: 2, Railing: no handrails Stairs to alternate level: Number of steps: 6 up/down, Railing: right handrail Bathroom Accessibility: Accessible via walker Assistive Device Owned: Front wheeled walker, Single point cane, Quad cane Adaptive Equipment Owned: None Other DME Owned: Adjustable bed Home Living Comments: Prior Level of Function and Mobility: Basic Activities of Daily Living: Independent Instrumental Activities of Daily Living: Independent Functional Mobility: Independent, occasionally would use cane when experiencing back pain Driving: Yes Occupational Role: Retired OBJECTIVE Vital Signs: Vitals monitored throughout session; within normal ranges. Evaluation Assessments: Strength: Generalized weakness Outcome Measures: -[facility] Inpatient Short Form: -PAC Basic Mobility (V.2) How much help from another person do you currently need???If the patient hasn't done an activity recently, how much help from another person do you think he/she would needif he/she tried? 1. Turning from your back to your side while in a flat bed without using bedrails?: None 2. Moving from lying on your back to sitting on the side of a flat bed without using bedrails?: None 3. Moving to and from a bed to a chair (including a wheelchair)?: None 4. Standing up from a chair using your arms (e.g., wheelchair, or bedside chair)?: None 5. To walk in hospital room?: A Little 6. Climbing 3-5 steps with a railing?: A Little AM-PAC Basic Mobility (V.2) Raw Score: 22 AM-PAC Basic Mobility (V.2) Standardized Score: 47.4 Interpretation: Based on scoring guidelines using the raw score value: Those going to home had an average score at or above 18 Those going to facility had an average score at or below 17 Clinicians answer the AM-[facility] Inpatient Short Form based on observed patient activity and/or clinical judgment (patient can be scored without physically performing each activity) Therapeutic Interventions: SIT TO STAND: - Assist Level: modified independent - Device: gait belt and front wheeled walker - Surface: chair - Therapist Delivery: assessed - Assist/Cues Provided: none for sequencing STAND TO SIT: - Assist Level: modified independent - Device: gait belt and front wheeled walker - Surface: chair - Therapist Delivery: assessed - Assist/Cues Provided: none for device placement GAIT: - Distance: 10 meters - Assist Level:contact guard assistance of 1 - Device: gait belt and front wheeled walker - Quality: antalgic - Therapist Delivery: assessed - Assist/Cues Provided:verbal for placement of gait aid - Comments: patient reports improvements in leg pain since the am. THERAPEUTIC EXERCISE: Seated Therapeutic Exercise: - Side: bilateral - Mode: active range of motion - Exercises: ankle pumps - Repetitions: 5 - Assist/Cues Provided: EDUCATION: -Role of PT in acute setting and collaborated with patient and/or family on goals and plan of care. The patient's status was discussed and the following coordination of care occurred with the RN Patient was left in bedside chair at end of session with call light in reach, all needs met and questions answered. Assessment Discharge Therapy Needs - PT: Ongoing skilled physical therapy If skilled therapy is recommended, skilled therapy can include physical therapy provided by home health, outpatient clinic, or a post-acute facility. The location of these services is determined by the patient's care team in partnership with patient/family. Level of Care Needed - PT: Assistance with walking and moving around the home, Assistance with stairs Barriers to Discharge Comments: split level home wtih 2 additional steps to enter From a physical therapy perspective, the level of care above has been recommended for Mr. Piña after hospital discharge. This level of care is based on his functional abilities during today's session. This may change throughout the hospital course and will be updated as appropriate. Clinical Impression: Currently, patient presents with decreased strength and increased pain resulting in the following impaired gait and impaired ability to complete stairs. Facilitated transfer and gait. Patient was able to ambulate in the room. He required cga for ambulation. He is making a lot of improvement since the morning. He will need to practice stairs prior to discharge. Physical therapy treatment is medically necessary to restore and maximize function, maximize safetyand facilitate discharge to home, teach and educate the patient and/or caregivers. Plan PT Plan Comments: progress ambulation with the walker and practice stairs. Functional Goals: PT Inpatient Goals PT Goal #1: Patient will demonstrate bed mobility from flat surface independently. PT Goal #1 Status: Progressing PT Goal #2: Patient will perform sit to stand transfer modified independent with least restrictive gait aid. PT Goal #2 Status: Progressing PT Goal #3: Patient will ambulate 90m modified independent with least restrictive gait aid. PT Goal #3 Status: Progressing PT Goal #4: Patient will demonstrate 8 steps up/down modified independent using 1 rail. PT Goal #4 Status: Ongoing Progress: Progressing toward goals Power Piña has Good rehab potential to meet the expected outcomes in a reasonable periodof time. Treatment Plan: Plan: Plan of care initiated PT Amount: 1 visit per day PT Frequency: 5 times per week PT Inpatient Duration : Until goals are met or hospital discharge Requires Inpatient Follow-Up: Yes PT - Next Inpatient Appointment: 07/21/24 Patient agrees with the plan of care and goals. Treatment interventions may include: Treatment/Interventions: Therapeutic functional activity, Therapeutic exercise, Gait training, Neuromuscular re-education Billing: Tiered PT Evaluation Codes: Comorbid Conditions: Cancer, Other (Comment) (see EMR) Personal Factors: Age, Balance impairment, Needs assistive device, Living situation Examination elements: 3 Clinical Presentation: Evolving Clinical Decision Making: Moderate complexity clinical decision making Time Spent with Patient Evaluations PT Eval - Mod Complexity: 15 min Therapeutic Interventions Therapeutic Activity (min): 15 min Time Tracking Total Timed Units (min): 15 min Total Treatment Time (min): 30 min Gabriela Carr P.T., D.P.T. GATION TAX ASSESSOR COLLECTOR * Claudia Livingston O.T., O.T.D. - 07/19/2024 10:37 AM CST Occupational Therapy Acute Hospital Inpatient Evaluation/Treatment SUBJECTIVE Patient's Name: Power Piña Referring/Attending Provider: Reason for Referral: Occupational Therapy Evaluation and Treatment PERTINENT MEDICAL / SURGICAL HISTORY: Power Piña has a past medical history of Diabetes Mellitus Type 2 (HCC) (08/07/2007). Power Piña has a past surgical history that includes other converted shx (see comment) (N/A, 11/05/2006); other converted shx (see comment) (N/A, 06/05/2007); other converted shx (see comment) (N/A, 01/18/2006); and other converted shx (see comment) (N/A, 08/05/1996). History of Present Illness: Power Piña is a 78 y.o. male who was admitted to [facility] in [place] on 07/18/2024 for Alcohol Abuse With Intoxication Unspecified (HCC) [F10.129] Repeated Falls [R29.6]. Relevant Medical History: COPD, Type 2 diabetes mellitus, hyperlipidemia, obesity, hypertension, CKD stage 3, gout, seasonal allergies, multiple myeloma in remission. Precautions Other Precautions: fall risk, right rib fractures Falls screen: Fall in the last 12 months: Yes (reason for admission, no other falls) Did you have an injury with the fall: Yes Are you fearful of falling: No Pain Assessment: Minimal pain at rest in ribs; 7/10 pain in left thigh when standing and attempting to mobilize Subjective Comments: Agreeable to therapy session. Patient/Caregiver Goals: Discharge home Home Living and Equipment: Lives with: Alone Receives help from: Family Type of Home: House Home Layout: Split-Level Home Access: Stairs to enter: Number of steps: 2, Railing: no handrails Stairs to alternate level: Number of steps: 6 up/down, Railing: right handrail Bathroom Accessibility: Accessible via walker Assistive Device Owned: Front wheeled walker, Single point cane, Quad cane Adaptive Equipment Owned: None Other DME Owned: Adjustable bed Home Living Comments: Prior Level of Function and Mobility: Basic Activities of Daily Living: Independent Instrumental Activities of Daily Living: Independent Functional Mobility: Independent, occasionally would use cane when experiencing back pain Driving: Yes Occupational Role: Retired OBJECTIVE Vital Signs: Vitals taken during session: O2 saturation: 94% and O2 flow: 1 L/min nasal cannula Evaluation Assessment: STRENGTH: Generalized weakness Left lower extremity impaired RANGE OF MOTION: Left lower extremity impaired BALANCE: Static Sitting: Good (Maintains balance without support) Dynamic Sitting: Good (Maintains balance without support) Static Standing: Fair (Maintains balance with handheld assist) Dynamic Standing: Unable to perform ACTIVITY TOLERANCE: Endurance: Tolerates 20-30 minutes of activity Outcome Measures: [facility] Inpatient Short Form: Putting on and taking off regular lower body clothing?: A lot Putting on and taking off regular upper body clothing?: None Taking care of personal grooming such as brushing teeth?: None Bathing (including washing, rinsing, drying)?: A Little Toileting, which includes using toilet, bedpan, or urinal?: A Little Eating meals?: None Daily Activities Raw Score (max 24): 20 Daily Activities Standardized Score: 42.03 Interpretation: Based on scoring guidelines using the raw score value: Those going to home had an average score at or above 18 Those going to facility had an average score at or below [address] [facility] Inpatient Short Form based on observed patient activity and/or clinical judgment (patient can be scored without physically performing each activity). Cognition: Will further assess and monitor as warranted Therapeutic Interventions: ACTIVITIES OF DAILY LIVING: GROOMING - Assist Level: supervision/set-up - Patient Location: seated on garth stedy paddles at sink - Activity: brushing teeth - regular or soft brush, combing hair, washing face, washing hands - Therapist Delivery: assessed, facilitated - Assist/Cues Provided: none for LOWER BODY DRESSING - Assist Level: maximal assist - Patient Location: edge of bed - LB Dressing Item: socks - Therapist Delivery: assessed, facilitated - Assist/Cues Provided: none for TOILETING - Assist Level: minimal assist - Patient Location: toilet - Activity: clothing management, pericare - Therapist Delivery: assessed, assisted, facilitated, instructed - Assist/Cues Provided: verbal and manual for technique, proper hand placement, positioning, transfer BED MOBILITY: SUPINE TO SIT - Assist Level: supervision/set-up - Device: bed rail, head of bed elevated - Therapist Delivery: assessed, facilitated, instructed - Assist/Cues Provided: verbal for log roll technique FUNCTIONAL TRANSFERS: SIT TO STAND - Assist Level: contact guard assist, minimal assist - Device: front wheeled walker and gait belt, garth stedy and gait belt - Surface: bed, Garth Stedy paddle halves , toilet - Therapist Delivery: assessed, assisted, educated, facilitated, instructed - Assist/Cues Provided: verbal, tactile, visual, and manual for technique, sequencing, proper hand placement, proper leg placement, use of momentum, assistance for thoroughness, increased time - Initial 2 stands with front wheeled walker, however unable to initiate gait secondary to significant pain in left thigh. Was able to bilaterally weight shift, but unable to lift LLE off ground. Following stands completed with garth stedy. Overall contact guard to minimal assistance STAND TO SIT - Assist Level: minimal assist - Device: front wheeled walker and gait belt, garth stedy and gait belt - Surface: bed, chair, Garth Stedy paddle halves , toilet - Therapist Delivery: assessed, assisted, educated, facilitated, instructed - Assist/Cues Provided: verbal, tactile, visual, and manual for technique, sequencing, proper hand placement, proper leg placement, eccentric control, increased time, balance, upright posture TOTAL ASSIST TRANSFER from bed to toilet and chair with Garth Stedy. Education/Training Provided: Provided education on role of occupational therapy in the acute setting. Collaborated with patient and/or family on goals and plan of care. Rib Fracture Management: - Educated patient on rib fracture management and how to apply these techniques to reduce pain, prevent pneumonia, and improve performance with activities of daily living and mobility. To reduce painwith breathing/coughing/moving, recommend use a pillow over the ribs to provide support and improvecomfort. Functional Transfers: - Provided instruction and cues during functional sit to/from stand transfers, including body alignment to surface, appropriate hand placement, and optimal placement of extremities to optimize safetyand technique. Toileting - Educated and instructed patient on accurate positioning and modifications for toileting skills with hygiene care and clothing management. Education and recommendations provided on options includingtoilet hygiene aid and/or toilet seat modifications. Bed Mobility: - Instructed patient on compensatory strategies to improve transfer in/out of bed. Recommendations provided with adaptations for correct sequencing, technique, and modification tools as needed including leg natural resource economist and/or bed adjustments. Activity Recommendations During Hospitalization: Educated patient and/or caregiver on the importance of activity and mobility to improve pulmonary function/hygiene, activity tolerance, strength, and overall well-being while in hospital. - Eat ALL meals in chair - Ambulate/transfer into chair 3-5x/day - Active engagement in daily self-care routine (hygiene and grooming, etc.) - Complete frequent oral cares, brushing teeth up to 4x per day is recommended to prevent hospital acquired pneumonia - Active engagement in leisure tasks as appropriate/safe (reading, music, games/cards, etc.) - Maintain typical day/night routine and incorporate sleep hygiene strategies Pursed-Lip Breathing: - Educated patient on the benefits of pursed lip breathing. Instructed on how to incorporate pursedlip breathing with breathing in through your nose and out through your mouth slowly with pursed lips. Pursed-lip breathing helps you think about breathing out slowly. Slowing your breathing may help you stay calm when you are short of breath. Oxygen Monitoring: - Educated patient on the use of portable pulse oximeter including use and indications. Provided recommendation for purchase and use at home to monitor medical status. Team Communication: The patient's status was discussed and coordination of care occurred with RN, Primary Service Family/Caregiver Present: Nephew Patient was left in bedside chair at end of session with call light in reach, all needs met and questions answered. Assessment Discharge Therapy Needs - OT: Ongoing skilled occupational therapy If skilled therapy is recommended, skilled therapy can include occupational therapy provided in home health, outpatient or post-acute facility. The location of these services is determined by patient's care team in partnership with patient/family. Level of Care Needed - OT: Assistance with toileting, Assistance with toilet/shower transfers, Assistance with showering/bathing, Assistance with shopping, Assistance with housekeeping, Assistance with transportation, Assistance with meal preparation, Assistance with dressing Barriers to Discharge Home: Current functional status, Fall risk, Inaccessible home environment, Limited caregiver availability, Safety concerns Barriers to Discharge Comments: [facility] 2 additional steps to enter Recommended Adaptive Equipment - OT: Dressing aids Clinical Impression: Currently, patient presents with impairments including pain, decreased strength, impaired balance, decreased activity tolerance, and limited endurance resulting in functional deficits including impaired functional mobility and decreased independence with self care tasks. Prior to current hospitalization patient was living alone in [facility] home. He reports independence with all I/ADLs and mobility. During therapy session patient was limited by pain in the left thigh. Unfortunately this pain limited ability to complete mobility and required use of garth stedy and contact guard to minimal assistance with all upright activity. Patient did report some dyspna, however vitals remained stable on 1L O2. Currently requiring assistance x1 with ADLs and mobility which is below his baseline. Primary team notified of current functional status and new onset of left thigh pain - further imaging ordered to rule out injury/fracture. The patient will benefit from ongoing occupational therapy services while hospitalized in order to improve engagement and independence in meaningful occupations. In-Hospital Activity and Mobility Recommendations: - Transfer into chair 3x/day with assist x 1, assist x 2, and Garth Stedy. - Use bedside commode for toileting - Eat ALL meals in chair - Active engagement in daily self-care routine (oral cares, face washing, combing hair) Plan OT Plan Comments: Next Session: progress transfers and mobility; standing tolerance with activity; DME needs?; lower body dressing Functional Goals: OT Goal #1: Patient will complete a grooming task standing at sink with modified independence for 5minutes to progress standing balance and endurance during functional tasks. OT Goal #1 Status: Slowly progressing OT Goal #2: Patient will complete total body dressing with retrieval and modified independence using adaptive equipment to increase independence in daily activities by discharge. OT Goal #2 Status: Ongoing OT Goal #3: Patient will verbalize and demonstrate an understanding of use of adaptive equipment tomaximize functional independence by the goal review date. OT Goal #3 Status: Ongoing OT Goal #4: Patient will complete toilet transfer, clothing management, and pako cares with modified independence using an assistive device as needed to decrease caregiver burden and return to prior level of function. OT Goal #4 Status: Slowly progressing Progress: Progressing toward goals Rehab potential: Mr. Piña has good potential to achieve established occupational therapy goals within the time frame outlined below. OT Frequency: OT Amount: 1 visit per day OT Frequency: 5 times per week OT Inpatient Duration : Until goals are met or hospital discharge Requires Inpatient OT Follow-Up: Yes OT - Next Inpatient Appointment: 07/21/24 Plan: Plan of care initiated Treatment interventions may include: Treatment Interventions: Therapeutic exercise, Therapeutic functional activity, Self-care/home management, Cognitive skills training Occupational Therapy Attestation Statement: Patient agrees with the plan of care and goals. Billing: Tiered OT Evaluation Codes: Comorbid Conditions: Cancer, Other (Comment) (see EMR) Personal Factors: Age, Balance impairment, Needs assistive device, Living situation Occupational Profile and History review: Expanded Performance Deficits: 3 - 5 performance deficits Evaluation Complexity: Moderate Time Spent with Patient Evaluations OT Eval - Mod Complexity: 16 min Therapeutic Interventions Home Management Training (min): 50 min Time Tracking Total Timed Units (min): 50 min Total Treatment Time (min): 66 min Claudia Livingston O.T., O.T.D. GATION TAX ASSESSOR COLLECTOR * Conner Woodson M.D. - 07/19/2024 9:17 AM CSTAssociated Order(s): IP CONSULT TO HEMATOLOGY Hematology Hospital Consult Service - Consult Note SUBJECTIVE REFERRAL SOURCE [facility] Medicine ([facility]) CHIEF COMPLAINT/REASON FOR CONSULTATION History multiple myeloma presenting with pathologic fracture of rib and suspicious bone lesions HISTORY OF PRESENT ILLNESS Mr. Power Piña is a 78 y.o. male with history multiple myeloma on lenalidomide, COPD, T2DM, HTN, CKD3 who is admitted on medicine 7 service after witnessed fall while intoxicated and subsequent right 6th rib and right 4th rib fractures. Additionally is being treated for COPD exacerbation. As part of trauma scans patient had CT Chest/abdomen/pelvis - imaging showed heterogenous expansilefatty lesion with pathologic minimally displaced fracture within the lateral right sixth rib and possible additional lesion in left fourth rib. Lesions appear chronic suggestive of treated multiple myeloma. Additionally with multiple thoracic compression fractures. Mr. Piña denies recent significant increase in fatigue, weight loss, fevers. His functional status is primarily limited by shortness of breath in the setting of COPD with recurrent exacerbations.[facility] is [facility] for which we do not have records of his prior treatments. At the time of diagnosis he reports being treated with an injectable drug (does not know the name) and subsequently being placed on lenalidomide since. He was last seen at the [facility] in May and is unsure if he has been following with a tax consultant. Does note having a PET scan in 2023 and was told there were no concerns with his myeloma. OBJECTIVE PHYSICAL EXAMINATION General: Alert and oriented, no acute distress Cardiac: Regular rate and rhythm, no murmur appreciated Pulmonary: Normal breath sounds bilaterally, normal respiratory effort, prolonged expiratory phase.Comfortable on 2L NC Extremities: No lower extremity edema, no tenderness or deformity Skin: actinic purpura on arms DIAGNOSTICS Labs notable for: CBC - Hgb 12.2, PLT 118k, MCV 94.5, RDW 15.3% BMP - Cr 1.65, GFR 43, Ca 8.4 ASSESSMENT / PLAN #1 History of Multiple Myeloma #2 Pathologic rib fractures This is a 78 yo M with history of multiple myeloma for which we do not currently have records of prior treatment and recent workup. Per the patient [facility] who have not been concerned about his current disease activity. Has been maintained on lenalidomide and reports taking this regularly as prescribed. Findings on imaging suggest pathologic rib fractures for which we are consulted regarding question about potential biopsy needs. Radiology read his imagingas potential chronic changes associated with prior multiple myeloma treatment. Without outside records we are unable to determine if these are new or previously known lesions which have been followed. Fracture is not spontaneous given his fall with associated trauma. He is not exhibiting significant CRAB features (normal/low calcium, renal function only slightly worsened from 5 years prior, mild anemia). At this time we do not feel biopsy to be necessary. Recommend obtaining baseline myeloma labs to compare to prior testing and help identify the activity of disease. If he is to discharge prior to results of studies it is pertinent he has close PCP follow up. RECOMMENDATIONS: 1. [facility]bt[facility] 2. Would obtain SPEP, UPEP, serum free light chains, immunoglobulin levels to assess myeloma status 3. No biopsy or other intervention recommended at this time. Suspect lesions may be related to prior treatment 4. Patient should [facility] if findings on our imaging have not been detected prior. Patient seen and discussed with Dr. Villalta. Hematology consults can be reached at pager #[phone]. Conner Woodson MD PGY2 Internal Medicine Cosigned by Purvi Villalta M.D., Ph.D. at 07/19/2024 2:42 PM IRRIGATION TAX ASSESSOR COLLECTOR GATION TAX ASSESSOR COLLECTOR GATION TAX ASSESSOR COLLECTOR Associated attestation - Purvi Villalta M.D., Ph.D. - 07/19/2024 2:42 PM IRRIGATION TAX ASSESSOR COLLECTOR This note is to attest that I have carefully reviewed Mr. Piña's history and findings, and havemet with the patient to discuss our assessment and recommendations. I agree with the history, examination, assessment and recommendations as recorded in Dr. Woodson's note of 07/19/24 Per the patient, at his last hematology follow up, there were not concerns for active disease. However we will need to obtain outside records to confirm this. In the meantime we can obtain baseline monoclonal protein studies as outlined in Dr. Woodson's not to further clarify. Reassuringly his imaging studies suggest that pathologic rib fractures may be more chronic. * Heidy Bailey M.D. - 07/19/2024 9:08 AM CSTAssociated Order(s): IP CONSULT TO TRAUMA CRITICAL CARE AND GENERAL SURGERY REFERRAL Medicine 7 Team - acute right posterior 4th rib fracture, pathologic lateral right 6th rib fracture CHIEF COMPLAINT Right sided chest pain s/p fall Mechanism/Subjective: Power Piña is a 78 y.o. male for whom [facility] is consulted for right rib fractures after fall last night. Patient presented to the ED after he fell off the barstool of a bar. Patient endorsesdrinking way too much last night in his own words. He typically drinks about once a week somewhere between 3-5 beers in one sitting, but acknowledges last night he was drinking black Russians and was quite inebriated. He does not remember the events clearly and cannot recall whether he hit his head or experienced loss of consciousness immediately after the fall. He does remember his right chestbeing the only source of pain after the fall, which is still the case except for additional right hip stiffness. He does have some right sided inspiratory pain. Patient presented to the ER and underwent full trauma scans given the mechanism of trauma and his inebriation. EtOH 175. Unfortunately he also suffered another fall while ambulating to the restroom in the ER, hitting his head. CT head imaging was captured after this fall and was negative for acute injuries. Additional findings on imaging include compression fractures T2, T10, T12, which are all of indeterminate age (T12 with 75% height loss). His medical history is significant for COPD (former smoker, quit 15 years ago) not on home O2, feels like he is always having rather shallow/irregular breathing. He can walk 20-40 steps at baseline before becoming winded. Other comorbidities include T2DM (on Metformin), and history of Multiple Myeloma in remission, on Revlimid 21 day cycles with 7 day breaks. Patient is accompanied by his nephew today. He was admitted to medicine 7 team who consulted us forassistance with rib fracture management. Past Medical History Past Medical History: Diagnosis Date Diabetes Mellitus Type 2 (HCC) 08/07/2007 Pertinent Medications Current Facility-Administered Medications: acetaminophen tablet 500 mg (TylenoL), 500 mg, oral, Q6H PRN, Daisha Alcala M.B.B.S., M.D. albuterol nebulizer solution 2.5 mg, 2.5 mg, nebulization, Q4H PRN, Daisha Alcala M.B.B.S., M.D. ascorbic acid tablet 125 mg (Vitamin C), 125 mg, oral, Daily, Daisha Alcala M.B.B.S., M.D., 125 mg at 07/19/[address] tablet 81 mg, 81 mg, oral, Daily, Daisha Alcala M.B.B.S., M.D., 81 mg at 07/19/24 0840 fluticasone furoate-vilanteroL 200-25 mcg/act inhaler 1 puff (Breo Ellipta), 1 puff, inhalation, Daily, Daisha Alcala M.B.B.S., M.D., 1 puff at 07/19/24 0839 heparin (porcine) injection 5,000 Units, 5,000 Units, subcutaneous, Q8H YEHUDA, Daisha Alcala M.B.B.S., M.D. insulin aspart U-100 injection 0-7 Units (NovoLOG FlexPen), 0-7 Units, subcutaneous, TID, Daisha Alcala M.B.B.S., M.D. insulin aspart U-100 injection 0-7 Units (NovoLOG FlexPen), 0-7 Units, subcutaneous, Daily at bedtime, Daisha Alcala M.B.B.SMariaelena Asher Lactated Ringer's, 100 mL/hr, intravenous, Continuous, Daisha Alcala M.B.B.S., M.D., Last Rate: 100 mL/hr at 07/19/24 0839, 100 mL/hr at 07/19/24 0839 sodium chloride 0.9 % injection 10 mL, 10 mL, intravenous, PRN, Daisha Alcala M.B.B.S., Mariaelena sodium chloride 0.9 % injection 3 mL, 3 mL, intravenous, Q12H YEHUDA, Daisha Alcala M.B.B.SMariaelena Asher, 3 mL at 07/19/24 0841 sodium chloride 0.9 % injection 3 mL, 3 mL, intravenous, PRN, Daisha Alcala M.B.B.SMariaelena Asher sodium chloride 0.9 % injection 3 mL, 3 mL, intravenous, Q12H YEHUDA, Daisha Alcala M.B.B.S., M.D., 3 mL at 07/19/24 0840 umeclidinium 62.5 mcg/actuation inhaler 1 puff (Incruse Ellipta), 1 puff, inhalation, Daily, Daisha Alcala M.B.B.S., M.D., 1 puff at 07/19/24 0839 Past Surgical History Past Surgical History: Procedure Laterality Date OTHER CONVERTED SHX (SEE COMMENT) N/A 11/05/2006 >Colonoscopy with Hot Biopsy OTHER CONVERTED SHX (SEE COMMENT) N/A 06/05/2007 >Open umbilical hernia repair. OTHER CONVERTED SHX (SEE COMMENT) N/A 01/18/2006 >Complex Colonoscopy with Hot Biopsy and Snare Polypectomy OTHER CONVERTED SHX (SEE COMMENT) N/A 08/05/1996 >Colonoscopy with snare excision of 1.5 cm sigmoid polyp and fulguration of three small sigmoid polyps. PRIMARY SURVEY Airway: Airway patent, patient maintaining own airway Breathing: Bilateral breath sounds auscultated Circulation: Palpable central and distal pulses Disability: GCS- Eyes: 4 - Opens eyes on own Verbal: 5 - Oriented Motor: 6 - Follows simple motor commands; total: 15/15. Exposure: no gross abnormalities observed SECONDARY SURVEY: HEENT: Head is atraumatic normocephalic. Pupils are equal, round, and reactive to light. No evidence of hemotympanum. No midface instability or tenderness on palpation. No nasal septal hematoma. No evidence of intraoral trauma. Scant dried blood over nares, nasal skin abrasions Neck: Supple. Trachea midline. No palpable cervical crepitus or underlying hematoma. No midline tenderness. Chest: Chest wall stable. Tenderness to palpation anterolateral right chest. No palpable crepitus.Able to produce a strong cough with minimal discomfort. Abdomen: Soft, rotund, nondistended, nontender on palpation. Pelvis: Stable to rock and compression. Extremities: Bilateral upper extremities are grossly normal without long-bone deformity. Multiple small skin tears (dressed appropriately) and ecchymosis, no active bleeding. Bilateral lower extremities are grossly normal without long- bone deformity. Pulses are palpable bilaterally. Spine: Palpation of cervical, thoracic, and lumbar spine did not reveal any bony step-offs or obvious tenderness on palpation. Rectum: Rectal exam: was deferred. No evidence of posterior trauma. LABS Recent Results (from the past 24 hours) Magnesium Collection Time: 07/19/24 12:25 AM Result Value Magnesium, S 2.0 Phosphorus Inorganic Collection Time: 07/19/24 12:25 AM Result Value Phosphorus (Inorganic), S 3.6 CBC with Differential, Blood Collection Time: 07/19/24 12:32 AM Result Value Hemoglobin 12.2 (L) Hematocrit 36.0 (L) Erythrocytes 3.81 (L) MCV 94.5 RBC Distrib Width 15.3 (H) Platelet Count 118 (L) Leukocytes 4.0 Neutrophils 2.07 Lymphocytes 1.19 Monocytes 0.55 Eosinophils 0.06 Basophils 0.10 (H) Basic Metabolic Panel Collection Time: 07/19/24 12:32 AM Result Value Potassium, P 3.6 Sodium, P 134 (L) Chloride, P 100 Bicarbonate, P 16 (L) Anion Gap, P 18 (H) BUN (Blood Urea Nitrogen), P 25 (H) Creatinine 1.65 (H) Estimated GFR (eGFR) 43 (L) Calcium, Total, P 8.4 (L) Glucose, P 140 Hepatic Function Panel Collection Time: 07/19/24 12:32 AM Result Value Bilirubin, Total, S 0.4 Bilirubin, Direct, S <0.2 Aspartate Aminotransferase (AST), S 22 Alanine Aminotransferase (ALT), S 21 Alkaline Phosphatase, S 114 Albumin, S 3.7 Protein, Total, S 5.4 (L) Ethanol Level, Serum Collection Time: 07/19/24 12:32 AM Result Value Ethanol, S 175 (H) Glucose, POCT Collection Time: 07/19/24 8:10 AM Result Value Glucose, POCT, B 160 (H) Last Intake 3-[address] Chest with IV Contrast, CT Abdomen Pelvis with IV Contrast Result Date: 07/19/2024 Impression: 1. Acute appearing nondisplaced fracture involving the [...] the compression fracture in the thoracic spine. CT Thoracic and Lumbar Spine by Reconstruction Result Date: 07/19/2024 Impression: 1. Age-indeterminate compression fracture of T12 with 75% vertebral body height loss centrally and superior endplate compression deformities of T2 and T10 with 10-20% vertebral body height loss, respectively. Findings could reflect sequelae of patient's multiple myeloma and should be corroborated with clinical exam and any additional prior imaging, if available. 2. No other definite acute/traumatic findings in the thoracolumbar spine. 3. Mild-moderate thoracic and borderline moderate lumbar spondylosis without high-grade spinal canal or foraminal stenosis. Examination performed inconjunction with a CT of the chest, abdomen, and pelvis which will reported separately. CT Cervical Spine without IV Contrast Result Date: 07/19/2024 Impression: 1. Technically limited exam due to motion artifact and osteopenia. 2. No definite CT evidence of acute fracture or traumatic malalignment in the cervical spine. Rotatory and posterior subluxation of C1 on C2 is favored to be positional but should be correlated clinically. 3. Overall moderate cervical spondylosis, as described. CT Head without IV Contrast Result Date: 07/19/2024 Impression: 1. No acute traumatic intracranial findings. 2. Scattered small calvarial lucencies, possibly related to the patient's multiple myeloma (currently in remission). INJURY BY LOCATION Face: - Small nasal abrasions Spine: T2, T10 and T12 compression fractures, age indeterminate Chest: Right Acute nondisplaced right posterior 4th rib fracture Pathologic likely chronic right lateral 6th rib fracture Left Possible left 4th posterolateral rib fracture Upper extremities: - Bilateral ecchymosis, small skin tears ASSESSMENT AND PLAN This is a 78 y.o. man with PMH significant for Multiple Myeloma in remission, COPD not on home O2 but moderately limited functional status, ex-smoker, T2DM, who presents after falling off a barstool while inebriated overnight, admitted to Medicine 7 team. Found to have right 4th acute and 6th acutevs chronic rib fractures with some discomfort, saturating appropriately with 2 L supplemental O2. He is able to produce a satisfactory cough with some discomfort but his pain is overall well controlled with current analgesia regimen. RECOMMENDATIONS: - Bacitracin dressing for nasal and upper extremity abrasions - Multimodal pain control - scheduled Tylenol 1000 mg q6h, PRN oxyCODONE, Robaxin, lidocaine patch every 12 hours - PT/OT consult - Recommend obtaining a repeat CXR today to assess atelectasis - Restart home medications as appropriate - Safety assessment - No additional follow up needed with TCGS unless recovery is not progressing as expected - Left thigh pain per OT with ambulation - recommend pelvic and left femur plain films to rule out traumatic injury, if these are negative recommend further rehabilitation recommendations per PT/OT #1 Diabetes Mellitus Type 2 (HCC) #2 Allergy Seasonal #3 Repeated Falls #4 Multiple Myeloma In Remission (HCC) #5 Chronic Kidney Disease (CKD), Stage 3b Glomerular Filtration Rate (GFR) 30 To 44 (HCC) #6 Chronic Obstructive Pulmonary Disease Exacerbation (HCC) #7 Fracture Rib Multiple Closed Initial Right #8 Alcohol Moderate Or Severe Use Disorder (Dependence) Uncomplicated (HCC) #9 Hyponatremia #10 Obesity Body Mass Index 30-39.9 Adult #11 Osteopenia Trauma team will sign off at this time. Please do not hesitate to reach out if any questions or concerns arise or if there is a change in the patient's clinical status regarding this issue. Please page [phone] to re-engage our team. This patient was seen and examined with Dr. Baptiste, [facility] trauma design studio consultant, who was in agreement with the above plan and assessment. Cosigned by Robert Baptiste M.D. at 07/28/2024 7:22 AM IRRIGATION TAX ASSESSOR COLLECTOR GATION TAX ASSESSOR COLLECTOR GATION TAX ASSESSOR COLLECTOR GATION TAX ASSESSOR COLLECTOR documented in this encounter Nursing Notes * Florence López R.N. - 07/20/2024 4:38 AM CST Shift Goals: Clinical Goals for the Shift: pt will remain stable and safe. Identify possible barriers to meeting goals/advancing plan of care: presenting illness End of Shift Summary: Pt A&Ox3. Remains room air. Remains A1, gb, w. Vitals stable. Reports no pain during shift. Slept adequately. Utilized urinal, adequate output. Family visited in evening. CXR scheduled to assess for atelectasis with right rib fracture. Plan will be to discharge home or possibly to a SNF for short term rehab when stable. Problem: PAIN - ADULT Goal: PT VERBALIZES/DEMONSTRATES ADEQUATE COMFORT LEVEL OR BASELINE Outcome: Progressing Problem: INFECTION - ADULT Goal: Absence of infection during hospitalization Outcome: Progressing Problem: SKIN/TISSUE INTEGRITY Goal: Skin/Tissue integrity maintained or improved Outcome: Progressing Problem: SAFETY ADULT Goal: Maintain a safe environment Outcome: Progressing GATION TAX ASSESSOR COLLECTOR GATION TAX ASSESSOR COLLECTOR * Angela Morrow, C.R.T., L.R.T. - 07/19/2024 10:19 PM IRRIGATION TAX ASSESSOR COLLECTOR Patient started Hyperinflation Therapy (HIT) algorithm on: 07/19 @ 0900 Patient is currently in phase 1 of the HIT assessment pathway. Next Respiratory Mechanics due: 07/20 @ 1400 Plan of Care: Continue HIT pathway per protocol. Rib Fracture After Trauma Assessment : Yes Max Inspiratory Pressure: -55 cm H2O Predicted Vital Capacity: 3.39 Liters Vital Capacity: 1.77 Liters Patient Position: Lying Patient Effort : Good Pain Score: 0 - No pain First 24 Hour Rib Fx Measurements Initial 07/19 @ 0900: VC 1.87, NIF -30 6 Hour: VC 1.73, NIF -55 12 Hour: VC 1.81, NIF -50 18 Hour: VC 1.77 NIF -55 RT will continue patient on HIT pathway until patient is able to achieve predicted VC >= 50% and NIF <= -30 five times in phase 1. OR RT will continue patient on HIT pathway until patient is able to achieve predicted VC >= 50% and NIF <= -30 once, 24 hours after HIT order is discontinued in phase 3. Angela Jimenez C.R.T., L.R.T. 07/20/24 3:59 AM IRRIGATION TAX ASSESSOR COLLECTOR GATION TAX ASSESSOR COLLECTOR GATION TAX ASSESSOR COLLECTOR * Juliana Robles C.R.T., L.R.T. - 07/19/2024 9:52 AM CST Patient started Hyperinflation Therapy (HIT) algorithm on: 07/19 @ 0900 Patient is currently in phase 1 of the HIT assessment pathway. Next Respiratory Mechanics due: 07/19 @ 2100 Plan of Care: Continue HIT pathway per protocol. Rib Fracture After Trauma Assessment : Yes Max Inspiratory Pressure: -55 cm H2O Predicted Vital Capacity: 3.39 Liters Vital Capacity: 1.73 Liters Patient Position: Sitting Patient Effort : Good Pain Score: 7 Shift Summary: 899- pt assessed and RT weaned pt to RA, pt has a hx of COPD and an SpO2 goal of 88-92%. RT completed initial mechanics measurements and pt met >50% of predicted VC and -30 NIF. Pt remains on phase 1. No acute concerns at this time. 1500- pt seen by RT colleague and mechanics completed- pt remains in phase 1 of HIT protocol. First 24 Hour Rib Fx Measurements Initial 07/19 @ 0900: VC 1.87, NIF -30 6 Hour: VC 1.73, NIF -55 12 Hour: 18 Hour: RT will continue patient on HIT pathway until patient is able to achieve predicted VC >= 50% and NIF <= -30 five times in phase 1. OR RT will continue patient on HIT pathway until patient is able to achieve predicted VC >= 50% and NIF <= -30 once, 24 hours after HIT order is discontinued in phase 3. Electronically signed by: Juliana Robles C.R.T., Cameron 07/19/24 5:37 PM IRRIGATION TAX ASSESSOR COLLECTOR GATION TAX ASSESSOR COLLECTOR documented in this encounter ED Notes * Selvin Kahn D.O. - 07/19/2024 8:12 AM CST I have personally seen and examined this patient. I have fully participated in the care of this patient. I have reviewed all clinical information including history, physical exam, orders, and plan. Patience with the note of the resident. This is a 78-year-old male who was brought in with paramedics. He was apparently at a local bar when he sustained some type of loss of consciousness. There is no clear report of any seizure-like activity. He was brought here for further evaluation. We proceeded forward with full trauma imaging given his limited ability to provide history. Lab work demonstrates a creatinine of 1.65 which is above the patient's baseline. LFTs are within normal limits. Patient has a mild anemia which is actually improved compared to prior CBCs. Ethanol level is 175. Trauma imaging demonstrates what has been described as 2 pathological rib fractures. Prior to going to CT for imaging, the patient had a fall in her bathroom. He did strike his head but CT imaging was obtained after this most recent fall. He has otherwise been hemodynamically stable here in the emergency department but at this point time I think he will warrant admission in the hospital for further management. Final Diagnoses: as of 07/19/24811 Alcohol Abuse With Intoxication Unspecified (HCC) Repeated Falls My CT Scan interpretation is documented in ED Course. Selvin Kahn D.O. 07/19/24814 GATION TAX ASSESSOR COLLECTOR * Winston Castillo M.D. - 07/19/2024 2:08 AM CST EMERGENCY MEDICINE CHIEF COMPLAINT Alcohol Intoxication and Fall INITIAL VITAL SIGNS Initial Vitals Temp -- Pulse Rate 07/19/2444 66 Heart Rate 07/19/2444 108 Resp Rate 07/19/24 0100 20 Blood Pressure 07/19/2444 125/78 SpO2 07/19/2444 (!) 86 % Pain Score 07/19/24 0002 0 - No pain ASSESSMENT AND PLAN This is a 78 y.o. male with previous medical history significant for type 2 diabetes, who was brought to the emergency department by EMS after an episode of fall, with the associated loss of consciousness, while drinking in a bar. Per EMS report, the patient has a witnessed fall, with loss of consciousness, after drinking large amount of alcohol in a bar. The patient lost consciousness for about 2-3 minutes. They denied other associated injuries. At evaluation in the emergency department, the patient was altered, but was opening eyes spontaneously, verbalizing normal, with normal motor response. He did not have chest wall tenderness to palpation, had symmetric bilateral breath sounds. There was no external signs of bleeding, no asymmetry oflong bones. Considering the patient's altered mental state, and possible intoxication, the patient is not rely on the physical examination to exclude traumatic injuries. We will, therefore, order trauma scan, torule out traumatic injuries, including CT scan of the head and cervical spine. We are also orderingblood work, including ethanol level, for better clarification of his mental state. ED Course as of 07/19/24321 Sat Jul 19, 2024320 While the patient is in the ED, he had an episode of fall, when trying to go to the restroom, where he sustained a head injury. The injury happened prior to performing the CT scans Winston Castillo M.D. Resident 07/19/24320 GATION TAX ASSESSOR COLLECTOR documented in this encounter Miscellaneous Notes * Hospital Course - Viviane Jeffers APRN, C.N.P., D.N.P. - 07/20/2024 12:18 PM CST Mr. Power Piña is a 78 year [...] obesity, CKD stage 3, and multiple myeloma. In the ED, he was afebrile and hemodynamically stable. Labs revealed hemoglobin 12.2, platelet count 118, sodium 134, bicarbonate 16, creatinine 1.65. Ethanol level of 175. ECG showed sinus rhythm with 1st degree A-V block and left axis deviation. CT head was negative for acute traumatic intracranial findings. CT chest/abdomen/pelvis/spine showed acute appearing nondisplaced fracture of posteriorright 4th rib, pathologic lateral right sixth rib fracture (lesions appear chronic with central fatattenuation suggestive of treated multiple myeloma), no acute traumatic findings of chest/abdomen/pelvis/spine, an indeterminate 6 mm subpleural left lower lobe nodule, incidental 3 cm ectasia of proximal descending thoracic aorta, and age-indeterminate T12 compression fracture. Chest x-ray was negative for pleural effusion, pneumothorax, consolidation. In the ED, he was administered IV fluids for gentle hydration. Mr. Piña was then admitted to the Medicine 7 Service for functional decline and inability to safely ambulate. Upon admission, Trauma Service evaluated the patient. He was noted to have chest wall (rib) and left thigh pain with ambulation when working with PT/OT. Additional imaging was performed and negative for traumatic injury or fracture. He was initiated on multi-modal pain regimen with acetaminophen and lidocaine patch. PT and OT assessed the patient and recommended ongoing rehabilitation. Patient and family preferred the patient to return to his home with family support. He was noted to have an JOSTIN which is likely secondary to hypovolemia and exposure to IV contrast. Oral fluids were encouraged.Chemical Dependency counseling was offered and the patient declined. Prior to discharge, he was afeb rile, hemodynamically stable, tolerating a general diet, and ambulating independently with a front-wheeled walker. Mr. Piña discharged to home with PCP and outpatient Hematology follow up at the [place]. GATION TAX ASSESSOR COLLECTOR GATION TAX ASSESSOR COLLECTOR GATION TAX ASSESSOR COLLECTOR GATION TAX ASSESSOR COLLECTOR documented in this encounter Plan of Treatment Upcoming Encounters Date Type Department Care Team (Late st Contact Info) Description 07/31/2024 11:50 AM IRRIGATION TAX ASSESSOR COLLECTOR Appointment Department of Laboratory Medicine and Pathology, [place], [place] [address] [place] [phone] Mami Momin P.A.-C. [address] [place] [phone] 07/31/2024 12:00 PM IRRIGATION TAX ASSESSOR COLLECTOR Appointment Department of Laboratory Medicine and Pathology, [place], [place] [address] [place] [phone] Mami Momin P.A.-C. [address] [place] [phone] 07/31/2024 3:30 PM IRRIGATION TAX ASSESSOR COLLECTOR Office Visit Department of Hospital Internal Medicine in [place], [place] [address] [place] [phone] Mami Momin P.A.-C. [address] [place] [phone] documented as of this encounter Procedures Procedure Name Priority Date/Time Associated Diagnosis Comments GLUCOSE POCT, B Routine 07/20/2024 11:56 AM IRRIGATION TAX ASSESSOR COLLECTOR CBC WITH DIFFERENTIAL, B Routine 07/20/2024 8:19 AM IRRIGATION TAX ASSESSOR COLLECTOR PHOSPHORUS (INORGANIC), S Routine 07/20/2024 8:19 AM IRRIGATION TAX ASSESSOR COLLECTOR MAGNESIUM, S Routine 07/20/2024 8:19 AM IRRIGATION TAX ASSESSOR COLLECTOR BASIC METABOLIC PANEL, S/P Routine 07/20/2024 8:19 AM IRRIGATION TAX ASSESSOR COLLECTOR GLUCOSE POCT, B Routine 07/20/2024 8:00 AM IRRIGATION TAX ASSESSOR COLLECTOR DX CHEST PORTABLE 1 VIEW RAD - Routine (most inpatients and all outpatients) 07/20/2024 7:44 AM IRRIGATION TAX ASSESSOR COLLECTOR GLUCOSE POCT, B Routine 07/19/2024 8:26 PM IRRIGATION TAX ASSESSOR COLLECTOR GLUCOSE POCT, B Routine 07/19/2024 5:29 PM IRRIGATION TAX ASSESSOR COLLECTOR DX PELVIS 1-2 VIEWS RAD - Routine (most inpatients and all outpatients) 07/19/2024 2:33 PM IRRIGATION TAX ASSESSOR COLLECTOR DX FEMUR LEFT 2 VIEWS RAD - Routine (most inpatients and all outpatients) 07/19/2024 2:33 PM IRRIGATION TAX ASSESSOR COLLECTOR DX CHEST AP OR PA AND LATERAL 2 VIEWS RAD - Routine (most inpatients and all outpatients) 07/19/2024 2:33 PM IRRIGATION TAX ASSESSOR COLLECTOR ELECTROPHORESIS, PROTEIN, RANDOM, U Routine 07/19/2024 1:39 PM IRRIGATION TAX ASSESSOR COLLECTOR GLUCOSE POCT, B Routine 07/19/2024 11:35 AM IRRIGATION TAX ASSESSOR COLLECTOR GLUCOSE POCT, B Routine 07/19/2024 8:10 AM IRRIGATION TAX ASSESSOR COLLECTOR CT THORACIC AND LUMBAR SPINE BY RECONSTRUCTION RAD - Emergent ([facility]; for the most critically ill patients) 07/19/2024 2:56 AM IRRIGATION TAX ASSESSOR COLLECTOR CT ABDOMEN PELVIS WITH IV CONTRAST RAD - Emergent ([facility]; for the most critically ill patients) 07/19/2024 2:56 AM IRRIGATION TAX ASSESSOR COLLECTOR CT CERVICAL SPINE WITHOUT IV CONTRAST RAD - Emergent ([facility]; for the most critically ill patients) 07/19/2024 2:56 AM IRRIGATION TAX ASSESSOR COLLECTOR CT CHEST WITH IV CONTRAST RAD - Emergent ([facility]; for the most critically ill patients) 07/19/2024 2:56 AM IRRIGATION TAX ASSESSOR COLLECTOR CT HEAD WITHOUT IV CONTRAST RAD - Emergent ([facility]; for the most critically ill patients) 07/19/2024 2:56 AM IRRIGATION TAX ASSESSOR COLLECTOR ETHANOL, S STAT 07/19/2024 12:32 AM IRRIGATION TAX ASSESSOR COLLECTOR HEPATIC FUNCTION PANEL, S STAT 07/19/2024 12:32 AM IRRIGATION TAX ASSESSOR COLLECTOR CBC WITH DIFFERENTIAL, B STAT 07/19/2024 12:32 AM IRRIGATION TAX ASSESSOR COLLECTOR BASIC METABOLIC PANEL, S/P STAT 07/19/2024 12:32 AM IRRIGATION TAX ASSESSOR COLLECTOR PHOSPHORUS (INORGANIC), S Routine 07/19/2024 12:25 AM IRRIGATION TAX ASSESSOR COLLECTOR MAGNESIUM, S Routine 07/19/2024 12:25 AM IRRIGATION TAX ASSESSOR COLLECTOR HEMOGLOBIN A1C, B Routine 07/19/2024 12:25 AM IRRIGATION TAX ASSESSOR COLLECTOR ECG STAT 07/19/2024 12:02 AM IRRIGATION TAX ASSESSOR COLLECTOR documented in this encounter Results * (ABNORMAL) Glucose, POCT (07/20/2024 11:56 AM IRRIGATION TAX ASSESSOR COLLECTOR) Glucose, POCT, B 220(H) 70 - 140 mg/dL 07/20/2024 12:00 PM IRRIGATION TAX ASSESSOR COLLECTOR PCLX Site Capillary 07/20/2024 12:00 PM IRRIGATION TAX ASSESSOR COLLECTOR PCLX Last Intake 2-3 hours 07/20/2024 12:00 PM IRRIGATION TAX ASSESSOR COLLECTOR PCLX Blood 07/20/2024 11:5 6 AM IRRIGATION TAX ASSESSOR COLLECTOR 07/20/2024 12:00 PM IRRIGATION TAX ASSESSOR COLLECTOR Unknown Provider LAB POCT ORDERABLES-MANUAL Lela l Result Performing Organization Address City/[facility]/ZIP Co de Phone Number POC [facility] [address] [place] [address], [facility] PCLX [facility] [address] [place] [address] * Phosphorus Inorganic (07/20/2024 8:19 AM IRRIGATION TAX ASSESSOR COLLECTOR) Phosphorus (Inorganic), S 2.6 2.5 - 4.5 mg/dL 07/20/2024 9:24 AM IRRIGATION TAX ASSESSOR COLLECTOR DTL Blood (Blood, Venous) 07/20/2024 8:19 AM IRRIGATION TAX ASSESSOR COLLECTOR 07/20/2024 9:07 AM IRRIGATION TAX ASSESSOR COLLECTOR Viviane Jeffers APRN, C.N.P., D.N.P. LAB BLOOD ADD-ON Final Result Performing Organization Address [facility] Co de Phone Number [facility] [address] [place] [address], [facility] DTL [facility] [address] [place] [address] * Magnesium (07/20/2024 8:19 AM IRRIGATION TAX ASSESSOR COLLECTOR) Magnesium, S 2.2 1.7 - 2.3 mg/dL 07/20/2024 9:24 AM IRRIGATION TAX ASSESSOR COLLECTOR DTL Blood (Blood, Venous) 07/20/2024 8:19 AM IRRIGATION TAX ASSESSOR COLLECTOR 07/20/2024 9:07 AM IRRIGATION TAX ASSESSOR COLLECTOR Viviane Jeffers APRN, C.N.P., D.N.P. LAB BLOOD ADD-ON Final Result Performing Organization Address City/[facility]/ZIP Co de Phone Number [facility] [address] [place] [address], [facility] DTL [facility] [address] [place] [address] * (ABNORMAL) CBC with Differential, Blood (07/20/2024 8:19 AM IRRIGATION TAX ASSESSOR COLLECTOR) Hemoglobin 11.3(L) 13.2 - 16.6 g/dL 07/20/2024 9:04 AM IRRIGATION TAX ASSESSOR COLLECTOR DTL Hematocrit 33.7(L) 38.3 - 48.6 % 07/20/2024 9:04 AM IRRIGATION TAX ASSESSOR COLLECTOR DTL Erythrocytes 3.53(L) 4.35 - 5.65 x10(12)/L 07/20/2024 9:04 AM IRRIGATION TAX ASSESSOR COLLECTOR DTL MCV 95.5 78.2 - 97.9 fL 07/20/2024 9:04 AM IRRIGATION TAX ASSESSOR COLLECTOR DTL RBC Distrib Width 15.8(H) 11.8 - 14.5 % 07/20/2024 9:04 AM IRRIGATION TAX ASSESSOR COLLECTOR DTL Platelet Count 120(L) 135 - 317 x10(9)/L 07/20/2024 9:04 AM IRRIGATION TAX ASSESSOR COLLECTOR DTL Leukocytes 3.8 3.4 - 9.6 x10(9)/L 07/20/2024 9:04 AM IRRIGATION TAX ASSESSOR COLLECTOR DTL Neutrophils 2.33 1.56 - 6.45 x10(9)/L 07/20/2024 9:04 AM IRRIGATION TAX ASSESSOR COLLECTOR DHPM Lymphocytes 0.85(L) 0.95 - 3.07 x10(9)/L 07/20/2024 9:04 AM IRRIGATION TAX ASSESSOR COLLECTOR DTL Monocytes 0.49 0.26 - 0.81 x10(9)/L 07/20/2024 9:04 AM IRRIGATION TAX ASSESSOR COLLECTOR DTL Eosinophils 0.03 0.03 - 0.48 x10(9)/L 07/20/2024 9:04 AM IRRIGATION TAX ASSESSOR COLLECTOR DTL Basophils 0.05 0.01 - 0.08 x10(9)/L 07/20/2024 9:04 AM IRRIGATION TAX ASSESSOR COLLECTOR DTL Blood (Blood, Venous) 07/20/2024 8:19 AM IRRIGATION TAX ASSESSOR COLLECTOR 07/20/2024 8:52 AM IRRIGATION TAX ASSESSOR COLLECTOR Viviane Jeffers APRN, C.N.P., D.N.P. LAB BLOOD ADD-ON Final Result [facility] [address] [place] [address], [facility] DTL [facility] [address] [place] [address] [facility] [address] [place] [address] * (ABNORMAL) Basic Metabolic Panel (07/20/2024 8:19 AM IRRIGATION TAX ASSESSOR COLLECTOR) [facility] Potassium, S 4.3 3.6 - 5.2 mmol/L 07/20/2024 9:24 AM IRRIGATION TAX ASSESSOR COLLECTOR DTL Sodium, S 138 135 - 145 mmol/L 07/20/2024 9:24 AM IRRIGATION TAX ASSESSOR COLLECTOR DTL Chloride, S 104 98 - 107 mmol/L 07/20/2024 9:24 AM IRRIGATION TAX ASSESSOR COLLECTOR DTL Bicarbonate, S 23 22 - 29 mmol/L 07/20/2024 9:24 AM IRRIGATION TAX ASSESSOR COLLECTOR DTL Anion Gap 11 7 - 15 07/20/2024 9:24 AM IRRIGATION TAX ASSESSOR COLLECTOR DTL BUN (Blood Urea Nitrogen), S 25(H) 8 - 24 mg/dL 07/20/2024 9:24 AM IRRIGATION TAX ASSESSOR COLLECTOR DTL Creatinine 1.67(H) 0.74 - 1.35 mg/dL 07/20/2024 9:24 AM IRRIGATION TAX ASSESSOR COLLECTOR DTL Estimated GFR (eGFR) 42(L) >=60 mL/min/BSA 07/20/2024 9:24 AM IRRIGATION TAX ASSESSOR COLLECTOR DTL Comment: Estimated GFR calculated using the 2020 CKD_EPI creatinine equation. Calcium, Total, S 8.7(L) 8.8 - 10.2 mg/dL 07/20/2024 9:24 AM IRRIGATION TAX ASSESSOR COLLECTOR DTL Glucose, S 149(H) 70 - 140 mg/dL 07/20/2024 9:24 AM IRRIGATION TAX ASSESSOR COLLECTOR DTL Blood (Blood, Venous) 07/20/2024 8:19 AM IRRIGATION TAX ASSESSOR COLLECTOR 07/20/2024 9:07 AM IRRIGATION TAX ASSESSOR COLLECTOR Barbie Howard APRNNGarrick., D.N.P. LAB BLOOD ADD-ON Final Result [facility] [address] [place] [address], [facility] DTL [facility] [address] [place] [address] * (ABNORMAL) Glucose, POCT (07/20/2024 8:00 AM IRRIGATION TAX ASSESSOR COLLECTOR) Glucose, POCT, B 174(H) 70 - 140 mg/dL 07/20/2024 8:02 AM IRRIGATION TAX ASSESSOR COLLECTOR PCLX Site Capillary 07/20/2024 8:02 AM IRRIGATION TAX ASSESSOR COLLECTOR PCLX Last Intake > 4 hours 07/20/2024 8:02 AM IRRIGATION TAX ASSESSOR COLLECTOR PCLX Blood 07/20/2024 8:00 AM IRRIGATION TAX ASSESSOR COLLECTOR 07/20/2024 8:03 AM IRRIGATION TAX ASSESSOR COLLECTOR us Unknown Provider LAB POCT ORDERABLES-MANUAL Lela l Result POC [facility] [address] [place] [address], [facility] PCLX [facility] POC [address] [facility] [address] [place] [address] * DX Chest Portable 1 View (07/20/2024 7:44 AM IRRIGATION TAX ASSESSOR COLLECTOR) Anatomical Region Laterality Modality Chest, Thoracic RST LOS, Tho racic ARZ LOS, Thoracic FLA LOS N/A Digital Radiography Impressions 07/20/2024 7:55 AM IRRIGATION TAX ASSESSOR COLLECTOR Expansile lesion with minimally displaced fracture in the lateral right sixth rib. Slight atelectasis left base. Chest otherwise negative. Narrative 07/20/2024 7:55 AM IRRIGATION TAX ASSESSOR COLLECTOR EXAM: DX CHEST PORTABLE 1 VIEW Procedure Note Ronaldo Martinez M.D. - 07/20/2024 EXAM: DX CHEST PORTABLE 1 VIEW IMPRESSION: Expansile lesion with minimally displaced fracture in the lateral rightsixth rib. Slight atelectasis left base. Chest otherwise negative. us Viviane Jeffers APRN, C.N.P., D.N.P. IMG DIAGNO STIC IMAGING PROCEDURES Final Result * (ABNORMAL) Glucose, POCT (07/19/2024 8:26 PM IRRIGATION TAX ASSESSOR COLLECTOR) Glucose, POCT, B 262(H) 70 - 140 mg/dL 07/19/2024 8:28 PM IRRIGATION TAX ASSESSOR COLLECTOR PCLX Site Capillary 07/19/2024 8:28 PM IRRIGATION TAX ASSESSOR COLLECTOR PCLX Last Intake 3-4 hours 07/19/2024 8:28 PM IRRIGATION TAX ASSESSOR COLLECTOR PCLX Blood 07/19/2024 8:26 PM IRRIGATION TAX ASSESSOR COLLECTOR 07/19/2024 8:29 PM IRRIGATION TAX ASSESSOR COLLECTOR us Unknown Provider LAB POCT ORDERABLES-MANUAL Lela l Result Performing Organization Address [facility]/ZIP Co de Phone Number POC [facility] [address] [place] [address], [facility] P[facility] P[facility] [address] [place] [address] * (ABNORMAL) Glucose, POCT (07/19/2024 5:29 PM IRRIGATION TAX ASSESSOR COLLECTOR) Glucose, POCT, B 260(H) 70 - 140 mg/dL 07/19/2024 5:32 PM IRRIGATION TAX ASSESSOR COLLECTOR PCLX Site Capillary 07/19/2024 5:32 PM IRRIGATION TAX ASSESSOR COLLECTOR PCLX Last Intake 2-3 hours 07/19/2024 5:32 PM IRRIGATION TAX ASSESSOR COLLECTOR PCLX Blood 07/19/2024 5:29 PM IRRIGATION TAX ASSESSOR COLLECTOR 07/19/2024 5:32 PM IRRIGATION TAX ASSESSOR COLLECTOR us Unknown Provider LAB POCT ORDERABLES-MANUAL Lela l Result Performing Organization Address [facility] Co de Phone Number POC [facility] [address] [place] [address], [facility] PCLX [facility] POC [address] [place] [address] * DX Femur Left 2 Views (07/19/2024 2:33 PM IRRIGATION TAX ASSESSOR COLLECTOR) Anatomical Region Laterality Modality Lower Extremity, Femur, Musc uloskeletal RST LOS, Musculoskeletal ARZ LOS, Muskuloskeletal FLA LOS Left Digit al Radiography Impressions 07/19/2024 3:00 PM IRRIGATION TAX ASSESSOR COLLECTOR Diffuse demineralization and degenerative changes. No significant joint effusion. No definite acute displaced fracture or traumatic misalignment. Narrative 07/19/2024 3:00 PM IRRIGATION TAX ASSESSOR COLLECTOR EXAM: DX FEMUR LEFT 2 VIEWS Procedure Note Tre Rodriguez D.O. - 07/19/2024 EXAM: DX FEMUR LEFT 2 VIEWS IMPRESSION: Diffuse demineralization and degenerative changes. No significant jointeffusion. No definite acute displaced fracture or traumaticmisalignment. Viviane Jeffers APRN, C.N.P., D.N.P. [facility] DI[facility]NO STIC IMAGING PROCEDURES Final Result * DX Pelvis 1-2 Views (07/19/2024 2:33 PM IRRIGATION TAX ASSESSOR COLLECTOR) Anatomical Region Laterality Modality Pelvis, Musculoskeletal RST LOS, Musculoskeletal ARZ LOS, Muskuloskeletal FLA LOS N/A Digital Radiography Impressions 07/19/2024 2:48 PM IRRIGATION TAX ASSESSOR COLLECTOR Diffuse demineralization. No definite acute displaced fracture or traumatic misalignment. Excreted contrast in the bladder. Left iliac lucent lesion better characterized on same day CT. Narrative 07/19/2024 2:48 PM IRRIGATION TAX ASSESSOR COLLECTOR EXAM: DX PELVIS 1-2 VIEWS Procedure Note Tre Rodriguez D.O. - 07/19/2024 EXAM: DX PELVIS 1-2 VIEWS IMPRESSION: Diffuse demineralization. No definite acute displaced fracture ortraumatic misalignment. Excreted contrast in the bladder. Left iliaclucent lesion better characterized on same day CT. Viviane Jeffers APRN, C.N.P., D.N.P. [facility] IMAGING PROCEDURES Final Result * DX Chest AP or PA and Lateral 2 Views (07/19/2024 2:33 PM IRRIGATION TAX ASSESSOR COLLECTOR) Anatomical Region Laterality Modality Chest, Thoracic RST LOS, Tho racic ARZ LOS, Thoracic FLA LOS N/A Digital Radiography Impressions 07/19/2024 2:47 PM IRRIGATION TAX ASSESSOR COLLECTOR No focal consolidation. No large pleural effusion or discernible pneumothorax. Stable cardiac silhouette size. No rib fractures better characterized on same day CT chest. Narrative 07/19/2024 2:47 PM IRRIGATION TAX ASSESSOR COLLECTOR EXAM: DX CHEST AP OR PA AND [...] Electrophoresis, Protein, Random, Urine (07/19/2024 1:39 PM IRRIGATION TAX ASSESSOR COLLECTOR) Protein, Total, Random, U 4 mg/dL 07/19/2024 3:58 PM IRRIGATION TAX ASSESSOR COLLECTOR DTL Creatinine, Random, U 39 16 - 326 mg/dL 07/19/2024 3:58 PM IRRIGATION TAX ASSESSOR COLLECTOR DTL Protein/Creati nine Ratio 0.10 <0.18 mg/mg 07/19/2024 3:58 PM IRRIGATION TAX ASSESSOR COLLECTOR DTL Albumin, mg/dL 0.8 mg/dL 07/23/2024 8:15 AM IRRIGATION TAX ASSESSOR COLLECTOR SDSC Alpha-1 globulin, mg/dL 0.4 mg/dL 07/23/2024 8:15 AM IRRIGATION TAX ASSESSOR COLLECTOR SDSC Alpha-2 globulin, mg/dL 1.0 mg/dL 07/23/2024 8:15 AM IRRIGATION TAX ASSESSOR COLLECTOR SDSC Beta globulin, mg/dL 0.9 mg/dL 07/23/2024 8:15 AM IRRIGATION TAX ASSESSOR COLLECTOR SDSC Gamma globulin, mg/dL 0.9 mg/dL 07/23/2024 8:15 AM IRRIGATION TAX ASSESSOR COLLECTOR SDSC A/G Ratio 0.25 07/23/2024 8:15 AM IRRIGATION TAX ASSESSOR COLLECTOR SDSC Impression All fractions present, no apparent M-spike. 07/23/2024 8:15 AM IRRIGATION TAX ASSESSOR COLLECTOR SDSC Urine (Urine, Midstream) 07/19/2024 1:39 PM IRRIGATION TAX ASSESSOR COLLECTOR 07/21/2024 6:18 AM IRRIGATION TAX ASSESSOR COLLECTOR Viviane Jeffers APRN, C.N.P., D.N.P. LAB URINE ORDERABLES Final Result [facility] [place] [address] [place] [address] DTL [facility] [address] [place] [address] [facility] [address] [facility] [address] [place] [address] * (ABNORMAL) Glucose, POCT (07/19/2024 11:35 AM IRRIGATION TAX ASSESSOR COLLECTOR) Glucose, POCT, B 212(H) 70 - 140 mg/dL 07/19/2024 11:38 AM IRRIGATION TAX ASSESSOR COLLECTOR PCLX Site Capillary 07/19/2024 11:38 AM IRRIGATION TAX ASSESSOR COLLECTOR PCLX Blood 07/19/2024 11:3 5 AM IRRIGATION TAX ASSESSOR COLLECTOR 07/19/2024 11:38 AM IRRIGATION TAX ASSESSOR COLLECTOR us Unknown Provider LAB POCT ORDERABLES-MANUAL Lela l Result Performing Organization Address [facility] Co de Phone Number POC [facility] [address] [place] [address], [facility] PCLX [facility] POC [address] [place] [address] * (ABNORMAL) Glucose, POCT (07/19/2024 8:10 AM IRRIGATION TAX ASSESSOR COLLECTOR) Glucose, POCT, B 160(H) 70 - 140 mg/dL 07/19/2024 8:18 AM IRRIGATION TAX ASSESSOR COLLECTOR PCLX Last Intake 3-4 hours 07/19/2024 8:18 AM IRRIGATION TAX ASSESSOR COLLECTOR PCLX Blood 07/19/2024 8:10 AM IRRIGATION TAX ASSESSOR COLLECTOR 07/19/2024 8:19 AM IRRIGATION TAX ASSESSOR COLLECTOR us Unknown Provider LAB POCT ORDERABLES-MANUAL Lela l Result Performing Organization Address [facility] Co de Phone Number POC [facility] [address] [place] [address], [facility] PCLX [facility] POC [address] [place] [address] * CT Thoracic and Lumbar Spine by Reconstruction (07/19/2024 2:56 AM IRRIGATION TAX ASSESSOR COLLECTOR) Anatomical Region Laterality Modality Thoracic Spine, Neuroradiolo gy RST LOS, Neuroradiology ARZ LOS, Neuroradiology FLA LOS N/A Computed Tomography, Compute d Tomography Impressions 07/19/2024 8:12 AM IRRIGATION TAX ASSESSOR COLLECTOR 1. Age-indeterminate compression fracture of T12 with [...] will reported separately. Narrative 07/19/2024 8:12 AM IRRIGATION TAX ASSESSOR COLLECTOR EXAM: CT THORACIC AND LUMBAR SPINE BY [...] will reported separately. us Winston Spivey M.D. [facility] CT PROCEDURES Final Result * CT Abdomen Pelvis with IV Contrast (07/19/2024 2:56 AM IRRIGATION TAX ASSESSOR COLLECTOR) Anatomical Region Laterality Modality Abdomen, Pelvis, Abdominal R ST LOS, Abdominal ARZ LOS, Abdominal FLA LOS N/A Computed Tomograp hy, Computed Tomography 07/19/2024 2:48 AM IRRIGATION TAX ASSESSOR COLLECTOR Impressions 07/19/2024 8:15 AM IRRIGATION TAX ASSESSOR COLLECTOR 1. Acute appearing nondisplaced fracture involving the [...] the thoracic spine. Narrative 07/19/2024 8:15 AM IRRIGATION TAX ASSESSOR COLLECTOR EXAM: CT CHEST WITH IV CONTRAST, CT [...] compression fracture in the thoracic spine. Winston Spivey M.D. [facility] CT PROCEDURES Final Result * CT Chest with IV Contrast (07/19/2024 2:56 AM IRRIGATION TAX ASSESSOR COLLECTOR) Anatomical Region Laterality Modality Chest, Thoracic RST LOS, Tho racic ARZ LOS, Thoracic ARZ LOS, Thoracic FLA LOS N/A Computed Tomography, Compute d Tomography 07/19/2024 2:47 AM IRRIGATION TAX ASSESSOR COLLECTOR Impressions 07/19/2024 8:15 AM IRRIGATION TAX ASSESSOR COLLECTOR 1. Acute appearing nondisplaced fracture involving the [...] the thoracic spine. Narrative 07/19/2024 8:15 AM IRRIGATION TAX ASSESSOR COLLECTOR EXAM: CT CHEST WITH IV CONTRAST, CT [...] Spine without IV Contrast (07/19/2024 2:56 AM IRRIGATION TAX ASSESSOR COLLECTOR) Anatomical Region Laterality Modality Cervical Spine, Neuroradiolo gy RST LOS, Neuroradiology ARZ LOS, Neuroradiology FLA LOS N/A Computed Tomography, Compute d Tomography 07/19/2024 2:33 AM IRRIGATION TAX ASSESSOR COLLECTOR Impressions 07/19/2024 8:03 AM IRRIGATION TAX ASSESSOR COLLECTOR 1. Technically limited exam due to motion artifact and osteopenia. 2. No definite CT evidence of acute fracture or traumatic malalignment in the cervical spine. Rotatory and posterior subluxation of C1 on C2 is favored to be positional but should be correlated clinically. 3. Overall moderate cervical spondylosis, as described. Narrative 07/19/2024 8:03 AM IRRIGATION TAX ASSESSOR COLLECTOR EXAM: CT CERVICAL SPINE WITHOUT IV CONTRAST [...] spondylosis, as described. us Winston Spivey M.D. IMG CT PROCEDURES Final Result * CT Head without IV Contrast (07/19/2024 2:56 AM IRRIGATION TAX ASSESSOR COLLECTOR) Anatomical Region Laterality Modality Head, Neuroradiology RST LOS , Neuroradiology ARZ LOS, Neuroradiology FLA LOS N/A Computed Tomography, Compute d Tomography 07/19/2024 2:33 AM IRRIGATION TAX ASSESSOR COLLECTOR Impressions 07/19/2024 7:57 AM IRRIGATION TAX ASSESSOR COLLECTOR 1. No acute traumatic intracranial findings. 2. Scattered small calvarial lucencies, possibly related to the patient's multiple myeloma (currently in remission). Narrative 07/19/2024 7:57 AM IRRIGATION TAX ASSESSOR COLLECTOR EXAM: CT HEAD WITHOUT IV CONTRAST COMPARISON: [...] cells are well aerated. Dental extractions and taoist hardware. Scattered small lucencies throughout the calvarium [...] air cells are well aerated.Dental extractions and taoist hardware. Scattered small lucencies throughout the calvarium that could reflect achronic manifestation of the patient's known multiple myeloma. IMPRESSION: 1. No acute traumatic intracranial findings. 2. Scattered small calvarial lucencies, possibly related to the patient'smultiple myeloma (currently in remission). us Winston Spivey M.D. IMG CT PROCEDURES Final Result * (ABNORMAL) Ethanol Level, Serum (07/19/2024 12:32 AM IRRIGATION TAX ASSESSOR COLLECTOR) Ethanol, S 175(H) <10 mg/dL 07/19/2024 1:1 4 AM IRRIGATION TAX ASSESSOR COLLECTOR DTL Blood (Blood, Venous) 07/19/2024 12:32 AM IRRIGATION TAX ASSESSOR COLLECTOR 07/19/2024 12:55 AM IRRIGATION TAX ASSESSOR COLLECTOR us Winston Spivey M.D. LAB BLOOD NON ADD- ON Final Result [facility] [address] [place] [address], [facility] [address] [place] [address] * (ABNORMAL) Hepatic Function Panel (07/19/2024 12:32 AM IRRIGATION TAX ASSESSOR COLLECTOR) Bilirubin, Total, S 0.4 0.0 - 1.2 mg/dL 07/19/2024 1:14 AM IRRIGATION TAX ASSESSOR COLLECTOR DTL Bilirubin, Direct, S <0.2 0.0 - 0.3 mg/dL 07/19/2024 1:14 AM IRRIGATION TAX ASSESSOR COLLECTOR DTL Aspartate Aminotransferase (AST), S 22 8 - 48 U/L 07/19/2024 1:14 AM IRRIGATION TAX ASSESSOR COLLECTOR DTL Alanine Aminotransferase (ALT), S 21 7 - 55 U/L 07/19/2024 1:14 AM IRRIGATION TAX ASSESSOR COLLECTOR DTL Alkaline Phosphatase, S 114 40 - 129 U/L 07/19/2024 1:14 AM IRRIGATION TAX ASSESSOR COLLECTOR DTL Albumin, S 3.7 3.5 - 5.0 g/dL 07/19/2024 1:14 AM IRRIGATION TAX ASSESSOR COLLECTOR DTL Protein, Total, S 5.4(L) 6.3 - 7.9 g/dL 07/19/2024 1:14 AM IRRIGATION TAX ASSESSOR COLLECTOR DTL Blood (Blood, Venous) 07/19/2024 12:32 AM IRRIGATION TAX ASSESSOR COLLECTOR 07/19/2024 12:55 AM IRRIGATION TAX ASSESSOR COLLECTOR us Winston Spivey M.D. LAB BLOOD ADD-ON F inal Result [address] [address], [facility] [address] * (ABNORMAL) Basic Metabolic Panel (07/19/2024 12:32 AM IRRIGATION TAX ASSESSOR COLLECTOR) Potassium, P 3.6 3.6 - 5.2 mmol/L 07/19/2024 1:10 AM IRRIGATION TAX ASSESSOR COLLECTOR DTL Sodium, P 134(L) 135 - 145 mmol/L 07/19/2024 1:10 AM IRRIGATION TAX ASSESSOR COLLECTOR DTL Chloride, P 100 98 - 107 mmol/L 07/19/2024 1:10 AM IRRIGATION TAX ASSESSOR COLLECTOR DTL Bicarbonate, P 16(L) 22 - 29 mmol/L 07/19/2024 1:10 AM IRRIGATION TAX ASSESSOR COLLECTOR DTL Anion Gap, P 18(H) 7 - 15 07/19/2024 1:10 AM IRRIGATION TAX ASSESSOR COLLECTOR DTL BUN (Blood Urea Nitrogen), P 25(H) 8 - 24 mg/dL 07/19/2024 1:10 AM IRRIGATION TAX ASSESSOR COLLECTOR DTL Creatinine 1.65(H) 0.74 - 1.35 mg/dL 07/19/2024 1:10 AM IRRIGATION TAX ASSESSOR COLLECTOR DTL Estimated GFR (eGFR) 43(L) >=60 mL/min/BSA 07/19/2024 1:10 AM IRRIGATION TAX ASSESSOR COLLECTOR DTL Comment: Estimated GFR calculated using the 2020 CKD_EPI creatinine equation. Calcium, Total, P 8.4(L) 8.8 - 10.2 mg/dL 07/19/2024 1:10 AM IRRIGATION TAX ASSESSOR COLLECTOR DTL Glucose, P 140 70 - 140 mg/dL 07/19/2024 1:10 AM IRRIGATION TAX ASSESSOR COLLECTOR DTL Blood (Blood, Venous) 07/19/2024 12:32 AM IRRIGATION TAX ASSESSOR COLLECTOR 07/19/2024 12:43 AM IRRIGATION TAX ASSESSOR COLLECTOR us Winston Spivey M.D. LAB BLOOD ADD-ON F inal Result [facility] [address] [place] [address], [facility] [address] [place] [address] * (ABNORMAL) CBC with Differential, Blood (07/19/2024 12:32 AM IRRIGATION TAX ASSESSOR COLLECTOR) Hemoglobin 12.2(L) 13.2 - 16.6 g/dL 07/19/2024 12:39 AM IRRIGATION TAX ASSESSOR COLLECTOR STMA Hematocrit 36.0(L) 38.3 - 48.6 % 07/19/2024 12:39 AM IRRIGATION TAX ASSESSOR COLLECTOR STMA Erythrocytes 3.81(L) 4.35 - 5.65 x10(12)/L 07/19/2024 12:39 AM IRRIGATION TAX ASSESSOR COLLECTOR STMA MCV 94.5 78.2 - 97.9 fL 07/19/2024 12:39 AM IRRIGATION TAX ASSESSOR COLLECTOR STMA RBC Distrib Width 15.3(H) 11.8 - 14.5 % 07/19/2024 12:39 AM IRRIGATION TAX ASSESSOR COLLECTOR STMA Platelet Count 118(L) 135 - 317 x10(9)/L 07/19/2024 12:39 AM IRRIGATION TAX ASSESSOR COLLECTOR STMA Leukocytes 4.0 3.4 - 9.6 x10(9)/L 07/19/2024 12:39 AM IRRIGATION TAX ASSESSOR COLLECTOR STMA Neutrophils 2.07 1.56 - 6.45 x10(9)/L 07/19/2024 12:39 AM IRRIGATION TAX ASSESSOR COLLECTOR DHPM Lymphocytes 1.19 0.95 - 3.07 x10(9)/L 07/19/2024 12:39 AM IRRIGATION TAX ASSESSOR COLLECTOR STMA Monocytes 0.55 0.26 - 0.81 x10(9)/L 07/19/2024 12:39 AM IRRIGATION TAX ASSESSOR COLLECTOR STMA Eosinophils 0.06 0.03 - 0.48 x10(9)/L 07/19/2024 12:39 AM IRRIGATION TAX ASSESSOR COLLECTOR STMA Basophils 0.10(H) 0.01 - 0.08 x10(9)/L 07/19/2024 12:39 AM IRRIGATION TAX ASSESSOR COLLECTOR STMA Blood (Blood, Venous) 07/19/2024 12:32 AM IRRIGATION TAX ASSESSOR COLLECTOR 07/19/2024 12:36 AM IRRIGATION TAX ASSESSOR COLLECTOR Winston Spivey M.D. LAB BLOOD ADD-ON F inal Result [facility] [address] STMA [facility] [address] [place] [address] DHPM [facility] [address] [place] [address] * Phosphorus Inorganic (07/19/2024 12:25 AM IRRIGATION TAX ASSESSOR COLLECTOR) Phosphorus (Inorganic), S 3.6 2.5 - 4.5 mg/dL 07/19/2024 8:48 AM IRRIGATION TAX ASSESSOR COLLECTOR DTL Blood 07/19/2024 12:2 5 AM IRRIGATION TAX ASSESSOR COLLECTOR 07/19/2024 8:25 AM IRRIGATION TAX ASSESSOR COLLECTOR Viviane Jeffers APRN, C.N.P., D.N.P. LAB BLOOD ADD-ON Final Result [facility] [address] DTL [facility] [address] [place] [address] * Magnesium (07/19/2024 12:25 AM IRRIGATION TAX ASSESSOR COLLECTOR) Magnesium, S 2.0 1.7 - 2.3 mg/dL 07/19/2024 8:48 AM IRRIGATION TAX ASSESSOR COLLECTOR DTL Blood (Blood, Venous) 07/19/2024 12:25 AM IRRIGATION TAX ASSESSOR COLLECTOR 07/19/2024 8:25 AM IRRIGATION TAX ASSESSOR COLLECTOR Barbie Howard APRNNLakeshiaP., D.N.P. LAB BLOOD ADD-ON Final Result Performing Organization Address [facility] de Phone Number [facility] [address] [place] [address] * (ABNORMAL) Hemoglobin A1c (07/19/2024 12:25 AM IRRIGATION TAX ASSESSOR COLLECTOR) Hemoglobin A1c, B 7.6(H) 4.0 - 5.6 % 07/19/2024 11:00 AM IRRIGATION TAX ASSESSOR COLLECTOR DT Comment: Hemoglobin A1c values greater than or equal to 6.5 percent are diagnostic for diabetes mellitus. Diagnosis should be confirmed by repeat testing. In diabetic patients, HbA1c goals should be discussed with healthcare provider. Blood (Blood, Venous) 07/19/2024 12:25 AM IRRIGATION TAX ASSESSOR COLLECTOR 07/19/2024 8:52 AM IRRIGATION TAX ASSESSOR COLLECTOR Daisha Barros M.D. LAB BLOOD ADD-O N Final Result Performing Organization Address [facility] Co de Phone Number [facility] [address] [place], [place] [id number] [place] [address] [address] [place] [address] * ECG 12 Lead (07/19/2024 12:02 AM IRRIGATION TAX ASSESSOR COLLECTOR) Ventricular Rate ECG/Min 100 BPM MUSE UT Interval 228 ms MUSE QRSD Interval 112 ms MUSE QT Interval 364 ms MUSE QTC Interval 469 ms MUSE P [place] 36 degrees MUSE R [place] -54 degrees MUSE T Wave [place] 82 degrees MUSE 07/19/2024 12:0 2 AM IRRIGATION TAX ASSESSOR COLLECTOR 07/19/2024 12:13 AM IRRIGATION TAX ASSESSOR COLLECTOR Impressions MUSE - 07/19/2024 12:13 AM IRRIGATION TAX ASSESSOR COLLECTOR Sinus rhythm with 1st degree A-V block [...] ECG ORDERABLES Fi nal Result MUSE NA documented in this encounter Visit Diagnoses Diagnosis Repeated Falls- Primary Alcohol Abuse With Intoxication Unspecified (HCC) Repeated Falls Decline Functional Status [R53.81] Diabetes Mellitus Type 2 (HCC) Allergy Seasonal Multiple Myeloma In Remission (HCC) Chronic Kidney Disease (CKD), Stage 3b Glomerular Filtration Rate (GFR) 30 To 44 (HCC) Chronic Obstructive Pulmonary Disease Exacerbation (HCC) Fracture Rib Multiple Closed Initial Right Alcohol Moderate Or Severe Use Disorder (Dependence) Uncomplicated (HCC) Hyponatremia Obesity Body Mass Index 30-39.9 Adult Osteopenia documented in this encounter Admitting Diagnoses Diagnosis Alcohol Abuse With Intoxication Unspecified (HCC) Repeated Falls documented in this encounter Administered Medications Inactive Administered Medications - up to 3 most recent administrations Medication Order MAR Action Action Date Dose Rate Site acetaminophen tablet 1,000 mg (TylenoL) 1,000 mg, oral, 3 times daily, First dose (after last modification) on 07/19/24 at 1130 Given 07/20/2024 7:51 AM IRRIGATION TAX ASSESSOR COLLECTOR 1,000 mg Given 07/19/2024 8:29 PM IRRIGATION TAX ASSESSOR COLLECTOR 1,000 mg Given 07/19/2024 11:57 AM IRRIGATION TAX ASSESSOR COLLECTOR 1,000 mg ascorbic acid tablet 125 mg (Vitamin C) 125 mg, oral, Daily, First dose on 07/19/24 at 0900 Given 07/20/2024 7:51 AM IRRIGATION TAX ASSESSOR COLLECTOR 125 mg Given 07/19/2024 8:40 AM IRRIGATION TAX ASSESSOR COLLECTOR [address] tablet 81 mg 81 mg, oral, Daily, First dose on 07/19/24 at 0900, Swallow whole. Do NOT crush, chew, or split tablet. Given 07/20/2024 7:51 AM IRRIGATION TAX ASSESSOR COLLECTOR 81 mg Given 07/19/2024 8:40 AM IRRIGATION TAX ASSESSOR COLLECTOR 81 mg bisacodyL suppository 10 mg (Dulcolax) 10 mg, rectal, Daily PRN, constipation, Starting on 07/19/24 at 1102 fluticasone furoate-vilanteroL 200-25 mcg/act inhaler 1 puff (Breo Ellipta) 1 puff, inhalation, Daily (RT), First dose on 07/19/24 at 0800, fluticasone/vilanterol diskus 200/25 mcg was interchanged for Budesonide/Formoterol 1. Hold device upright in right hand with rough edge. 2. Using left hand open lid (toward left) until click is heard. 3. Tilt inhaler flat so air entrainment vents & counter face up. 4. Inhale to full breath somewhat fast. 5. Hold breath up to 10 seconds. 6. Remove inhaler from mouth. 7. Close lid. Given 07/20/2024 7:52 AM IRRIGATION TAX ASSESSOR COLLECTOR 1 puff Given 07/19/2024 8:39 AM IRRIGATION TAX ASSESSOR COLLECTOR 1 puff heparin (porcine) injection 5,000 Units 5,000 Units, subcutaneous, Every 8 hours scheduled, First dose on 07/19/24 at 1400 Given 07/20/2024 6:02 AM IRRIGATION TAX ASSESSOR COLLECTOR 5,000 Units Right Lower Abdomen Given 07/19/2024 9:17 PM IRRIGATION TAX ASSESSOR COLLECTOR 5,000 Units R ight Upper Arm (Back) Given 07/19/2024 1:41 PM IRRIGATION TAX ASSESSOR COLLECTOR 5,000 Units R ight Upper Arm (Back) insulin aspart U-100 injection 0-7 Units (NovoLOG FlexPen) 0-7 Units, subcutaneous, 3 times daily, First dose on 07/19/24 at 0800, Insulin Scale: Mild Correction Scale, 180 - 219: 2 units, 220 - 259: 3 units, 260 - 299: 4 units, 300 - 339: 5 units, 340 - 379: 6 units, 380 - 399: 7 units, Greater than 399: Call service writing Insulin orders Given 07/20/2024 12:20 PM IRRIGATION TAX ASSESSOR COLLECTOR 3 Units Right Upper Arm (Alexandrea k) Given 07/19/2024 6:13 PM IRRIGATION TAX ASSESSOR COLLECTOR 4 Units Le ft Upper Arm (Back) Given 07/19/2024 11:59 AM IRRIGATION TAX ASSESSOR COLLECTOR 2 Units L eft Lower Abdomen insulin aspart U-100 injection 0-7 Units (NovoLOG FlexPen) 0-7 Units, subcutaneous, Daily at bedtime, First dose on 07/19/24 at 2100, Insulin Scale: Modified Bedtime Correction Scale, 220-259: 3 units, 260-299: 4 units, 300-339: 5 units, 340-379: 6 units, 380-399: 7 units, Greater than 399: Call service writing insulin orders Given 07/19/2024 8:29 PM IRRIGATION TAX ASSESSOR COLLECTOR 4 Units Right Upper Arm (Back) iohexoL 300 mg iodine/mL solution 1-200 mL (Omnipaque) 1-200 mL, intravenous, Once in imaging, contrast, Starting on 07/19/24 at 0220, For 1 dose, Imaging Protocol Orders, Dose per Radiant Medication Guidelines Given 07/19/2024 2:37 AM IRRIGATION TAX ASSESSOR COLLECTOR 140 mL Lactated Ringer's 100 mL/hr, intravenous, Continuous, Starting on 07/19/24 at 0730, For 10 hours New Bag 07/19/2024 8:39 AM IRRIGATION TAX ASSESSOR COLLECTOR 100 mL/hr 100 mL/hr lidocaine 5 % 1 patch (Lidoderm) 1 patch, transdermal, Administer over 12 Hours, Daily, First dose on 07/19/24 at 1115, Apply to chest for pain relief. Remove after 12 hours. Medication Applied 07/20/2024 7:51 AM IRRIGATION TAX ASSESSOR COLLECTOR 1 patch Chest Medication Applied 07/19/2024 11:58 AM IRRIGATION TAX ASSESSOR COLLECTOR 1 patch Chest naloxone injection 0.2 mg (Narcan) 0.2 mg, intravenous, As needed, respiratory depression, Starting on 07/19/24 at 1102, For RASS Score -4 or less, respiratory rate of less than 8 breaths/min. Notify provider/service and rapid response team (if available at institution). [id number] 3.5 mg-400 unit-5,000 unit/gram ointment 1 Application (Neosporin) 1 Application, topical, 2 times daily, First dose on 07/19/24 at 1115, Apply to nasal and upper extremity abrasions Given 07/20/2024 7:52 AM IRRIGATION TAX ASSESSOR COLLECTOR 1 Application Given 07/19/2024 9:15 PM IRRIGATION TAX ASSESSOR COLLECTOR 1 Application Given 07/19/2024 11:57 AM IRRIGATION TAX ASSESSOR COLLECTOR 1 Application oxyCODONE IR tablet 2.5 mg (Roxicodone) 2.5 mg, oral, Every 4 hours PRN, moderate pain or score 4-6 of 10, severe pain or score 7-10 of 10, Starting on 07/19/24 at 1101 polyethylene glycol powder packet 17 g (Miralax) 17 g, oral, Daily PRN, constipation, Starting on 07/19/24 at 1102, Dissolve in 240 mLs (8 ounces) of water prior to giving. Avoid mixing with starch-based thickened liquids. predniSONE tablet 40 mg (Deltasone) 40 mg, oral, Daily, First dose on 07/19/24 at 0730, For 5 days Given 07/19/2024 8:40 AM IRRIGATION TAX ASSESSOR COLLECTOR 40 mg sennosides tablet 8.6 mg (Senokot) 8.6 mg, oral, 2 times daily PRN, constipation, Starting on 07/19/24 at 1102 sodium chloride (PF) 0.9 % injection 1-100 mL 1-100 mL, intravenous, Once, On 07/19/24 at 0221, For 1 dose, Imaging Protocol Orders, Dose per Radiant Medication Guidelines Given 07/19/2024 2:38 AM IRRIGATION TAX ASSESSOR COLLECTOR 40 mL sodium chloride 0.9 % injection 3 mL 3 mL, intravenous, Every 12 hours scheduled, First dose on 07/19/24 at 0900, Peripheral Intravenous Catheter and Rapid Infusion Catheter, when no infusion to maintain patency Given 07/20/2024 7: 52 AM IRRIGATION TAX ASSESSOR COLLECTOR 3 mL Given 07/19/2024 9:18 PM IRRIGATION TAX ASSESSOR COLLECTOR 3 mL Given 07/19/2024 8:41 AM IRRIGATION TAX ASSESSOR COLLECTOR 3 mL sodium chloride 0.9 % injection 3 mL 3 mL, intravenous, Every 12 hours scheduled, First dose on 07/19/24 at 0900, Peripheral Intravenous Catheter and Rapid Infusion Catheter, when no infusion to maintain patency Given 07/20/2024 7: 52 AM IRRIGATION TAX ASSESSOR COLLECTOR 3 mL Given 07/19/2024 9:15 PM IRRIGATION TAX ASSESSOR COLLECTOR 3 mL Given 07/19/2024 8:40 AM IRRIGATION TAX ASSESSOR COLLECTOR 3 mL umeclidinium 62.5 mcg/actuation inhaler 1 puff (Incruse Ellipta) 1 puff, inhalation, Daily (RT), First dose on 07/19/24 at 0800, umeclidinium inhalation was interchanged for tiotropium respimat/handihaler 1. Hold device upright in right hand with rough edge. 2. Using left hand open lid (toward left) until click is heard. 3. Tilt inhaler flat so air entrainment vents & counter face up. 4. Inhale to full breath somewhat fast. 5. Hold breath up to 10 seconds. 6. Remove inhaler from mouth. 7. Close lid. Given 07/20/2024 7:51 AM IRRIGATION TAX ASSESSOR COLLECTOR 1 puff Given 07/19/2024 8:39 AM IRRIGATION TAX ASSESSOR COLLECTOR 1 puff documented in this encounter Active and Recently Administered Medications Times are shown in IRRIGATION TAX ASSESSOR COLLECTOR. Scheduled Medication Order 07/18/2024 07/19/2024 07/20/2024 acetaminophen tablet 1,000 mg (TylenoL) 1,000 mg, oral, 3 times daily, First dose (after last modification) on 07/19/24 at 1130 1157 (Given - Provider: Rosa M Aldrich R.N.)2028 (Given - Provider: Malina Purcell R.N.) 0751 (Given - Provider: Rosa M Aldrich R.N.)1405 (Not Given - Provider: Roe MaldonadoN. - Reason: Patient/family refused) ascorbic acid tablet 125 mg (Vitamin C) 125 mg, oral, Daily, First dose on 07/19/24 at 0900 0840 (Given - Provider: Roe MaldonadoN.) 0751 (Given - Provider: Rosa M Aldrich RLakeshiaN.) aspirin DR tablet 81 mg 81 mg, oral, Daily, First dose on 07/19/24 at 0900, Swallow whole. Do NOT crush, chew, or split tablet. 0840 (Given - Provider: Rosa M Aldrich R.N.) 0751 (Given - Provider: Roe MaldonadoN.) fluticasone furoate-vilanteroL 200-25 mcg/act inhaler 1 puff (Breo Ellipta) 1 puff, inhalation, Daily (RT), First dose on 07/19/24 at 0800, fluticasone/vilanterol diskus 200/25 mcg was interchanged for Budesonide/Formoterol 1. Hold device upright in right hand with rough edge. 2. Using left hand open lid (toward left) until click is heard. 3. Tilt inhaler flat so air entrainment vents & counter face up. 4. Inhale to full breath somewhat fast. 5. Hold breath up to 10 seconds. 6. Remove inhaler from mouth. 7. Close lid. 0839 (Given - Provider: Rosa M Aldrich R.N.) 0752 (Given - Provider: Roe MaldonadoN.) heparin (porcine) injection 5,000 Units 5,000 Units, subcutaneous, Every 8 hours scheduled, First dose on 07/19/24 at 1400 1341 (Given - Provider: Reo MaldonadoN.)2117 (Given - Provider: Malina Purcell R.N.) 0602 (Given - Provider: Florence López RLakeshiaN.)1405 (Not Given - Provider: Rosa M Aldrich RLakeshiaN. - Reason: Patient/family refused) insulin aspart U-100 injection 0-7 Units (NovoLOG FlexPen) 0-7 Units, subcutaneous, 3 times daily, First dose on 07/19/24 at 0800, Insulin Scale: Mild Correction Scale, 180 - 219: 2 units, 220 - 259: 3 units, 260 - 299: 4 units, 300 - 339: 5 units, 340 - 379: 6 units, 380 - 399: 7 units, Greater than 399: Call service writing Insulin orders 0837 (Not Given - Provider: Rosa M Aldrich RLakeshiaN. - Reason: Order parameters not met)1159 (Given - Provider: Rosa M Aldrich R.N.)1813 (Given - Provider: Rosa M Aldrich, R.N.) 0800 (Not Given - Provider: Rosa M Aldrich, R.N. - Reason: Order parameters not met)1220 (Given - Provider: Rosa M Aldrich, R.N.) insulin aspart U-100 injection 0-7 Units (NovoLOG FlexPen) 0-7 Units, subcutaneous, Daily at bedtime, First dose on 07/19/24 at 2100, Insulin Scale: Modified Bedtime Correction Scale, 220-259: 3 units, 260-299: 4 units, 300-339: 5 units, 340-379: 6 units, 380-399: 7 units, Greater than 399: Call service writing insulin orders 2028 (Given - Provider: Malina Purcell R.N. - Comment: bs 262) lidocaine 5 % 1 patch (Lidoderm) 1 patch, transdermal, Administer over 12 Hours, Daily, First dose on 07/19/24 at 1115, Apply to chest for pain relief. Remove after 12 hours. 1158 (Medication Applied - Provider: Rosa M Aldrich R.N.) 0033 (Medication Removed - Provider: Florence López R.N.)0751 (Medication Applied - Provider: Rosa M Aldrich R.N.)1450 (Due: Medication Removed - Provider: Discharge Provider, Automatic - Comment: Time automatically adjusted from order being discontinued) lstjhtin-ixkjrfsiqw-vlntsg gladis 3.5 mg-400 unit-5,000 unit/gram ointment 1 Application (Neosporin) 1 Application, topical, 2 times daily, First dose on 07/19/24 at 1115, Apply to nasal and upper extremity abrasions 1157 (Given - Provider: Rosa M Aldrich R.N.)2115 (Given - Provider: Malina Purcell R.N.) 0752 (Given - Provider: Rosa M Aldrich R.N.) predniSONE tablet 40 mg (Deltasone) (CANCELED) 40 mg, oral, Daily, First dose on 07/19/24 at 0730, For 5 days 0840 (Given - Provider: Rosa M Aldrich R.N.) sodium chloride (PF) 0.9 % injection 1-100 mL (COMPLETED) 1-100 mL, intravenous, Once, On 07/19/24 at 0221, For 1 dose, Imaging Protocol Orders, Dose per Radiant Medication Guidelines 0238 (Given - Provider: Reina Dela Cruz R.N.) sodium chloride 0.9 % injection 3 mL 3 mL, intravenous, Every 12 hours scheduled, First dose on 07/19/24 at 0900, Peripheral Intravenous Catheter and Rapid Infusion Catheter, when no infusion to maintain patency 0841 (Given - Provider: Rosa M Aldrich R.N.)2118 (Given - Provider: Malina Purcell R.N.) 0752 (Given - Provider: Rosa M Aldrich R.N.) sodium chloride 0.9 % injection 3 mL 3 mL, intravenous, Every 12 hours scheduled, First dose on 07/19/24 at 0900, Peripheral Intravenous Catheter and Rapid Infusion Catheter, when no infusion to maintain patency 0840 (Given - Provider: Rosa M Aldrich R.N.)2115 (Given - Provider: Malina Purcell R.N.) 0752 (Given - Provider: Rosa M Aldrich R.N.) umeclidinium 62.5 mcg/actuation inhaler 1 puff (Incruse Ellipta) 1 puff, inhalation, Daily (RT), First dose on 07/19/24 at 0800, umeclidinium inhalation was interchanged for tiotropium respimat/handihaler 1. Hold device upright in right hand with rough edge. 2. Using left hand open lid (toward left) until click is heard. 3. Tilt inhaler flat so air entrainment vents & counter face up. 4. Inhale to full breath somewhat fast. 5. Hold breath up to 10 seconds. 6. Remove inhaler from mouth. 7. Close lid. 0839 (Given - Provider: Rosa M Aldrich R.N.) 0751 (Given - Provider: Rosa M Aldrich R.N.) Continuous Medication Order 07/18/2024 07/19/2024 07/20/2024 Lactated Ringer's (CANCELED) 100 mL/hr, intravenous, Continuous, Starting on 07/19/24 at 0730, For 10 hours 0839 (New Bag - Provider: Rosa M Aldrich R.N.)1204 (Stopped - Provider: Rosa M Aldrich R.N.) PRN Medication Order 07/18/2024 07/19/2024 07/20/2024 albuterol nebulizer solution 2.5 mg 2.5 mg, nebulization, Every 4 hours PRN, wheezing, shortness of breath, Starting on 07/19/24 at 0706, Albuterol nebs were interchanged for albuterol/levalbuterol MDI bisacodyL suppository 10 mg (Dulcolax) 10 mg, rectal, Daily PRN, constipation, Starting on 07/19/24 at 1102 iohexoL 300 mg iodine/mL solution 1-200 mL (Omnipaque) (COMPLETED) 1-200 mL, intravenous, Once in imaging, contrast, Starting on 07/19/24 at 0220, For 1 dose, Imaging Protocol Orders, Dose per Radiant Medication Guidelines 0237 (Given - Provider: Reina Dela Cruz R.N.) naloxone injection 0.2 mg (Narcan) 0.2 mg, intravenous, As needed, respiratory depression, Starting on 07/19/24 at 1102, For RASS Score -4 or less, respiratory rate of less than 8 breaths/min. Notify provider/service and rapid response team (if available at institution). oxyCODONE IR tablet 2.5 mg (Roxicodone) 2.5 mg, oral, Every 4 hours PRN, moderate pain or score 4-6 of 10, severe pain or score 7-10 of 10, Starting on 07/19/24 at 1101 polyethylene glycol powder packet 17 g (Miralax) 17 g, oral, Daily PRN, constipation, Starting on 07/19/24 at 1102, Dissolve in 240 mLs (8 ounces) of water prior to giving. Avoid mixing with starch-based thickened liquids. sennosides tablet 8.6 mg (Senokot) 8.6 mg, oral, 2 times daily PRN, constipation, Starting on 07/19/24 at 1102 sodium chloride 0.9 % injection 10 mL 10 mL, intravenous, As needed, line care, Starting on 07/19/24 at 0705, Peripheral Intravenous Catheter and Rapid Infusion Catheter, prior to blood sampling, post blood transfusion or post blood sampling sodium chloride 0.9 % injection 3 mL 3 mL, intravenous, As needed, line care, Starting on 07/19/24 at 0705, Prior to and following infusion and between multiple consecutive infusions: sodium chloride 0.9 % injection documented in this encounter Additional Health Concerns Infection Onset Date Last Indicated Resolved Time Protective Environment 07/18/2024 07/18/2024 documented as of this encounter Care Teams Director Loss Prevention Relationship Specialty Start Date End Date None Reported, Pcp PCP - General Family Medicine 07/19/24 documented as of this encounter
--- OUTSIDE RECORDS SUMMARY | 2024-07-30 06:33 | XMS_ITS | Encounter Summary ---
Author Organization [facility] Address [address] [place] [address] Care Team Providers Care Investigator Claims Name Role Phone None Reported, Pcp Primary Care Provider Unavail able Encounter Details Date Type Department Care Team (Late st Contact Info) Description 07/21/2024 Clinical Communication [facility] [address] [place] [phone] Viviane Jeffers APRN, C.N.P., D.N.P. [address] [place] [phone] Social History Tobacco Use Types Packs/Day Years Used Date Smoking Tobacco: Former Smokeless Tobacco: Never Alcohol Use Standard Drinks/Week Comments Yes 0 (1 standard drink = 0.6 oz pur e alcohol) [facility] Utilities Answer Date Recorded In the past 12 months has [employer], gas, oil, or water [employer] threatened to shut off services in your [...] your living situation today? I have a [facility] place to live 07/19/2024 Sex and Gender Information Value Date Recorded Sex Assigned at Not on file Legal Sex Male 6:12 AM SURGICAL SERVICES COORDINATOR Gender Identity Not on file Sexual Orientation Not on file documented as of this encounter Plan of Treatment Upcoming Encounters Date Type Department Care Team (Late st Contact Info) Description 07/31/2024 11:50 AM SURGICAL SERVICES COORDINATOR Appointment Department of Laboratory Medicine and Pathology, [place], [place] [address] [place] [phone] Mami Momin, P.A.-C. [address] [place] [phone] 07/31/2024 12:00 PM SURGICAL SERVICES COORDINATOR Appointment Department of Laboratory Medicine and Pathology, [facility] in [place], [place] [address] [place] [phone] Mami Momin, P.A.-C. [address] [place] [phone] 07/31/2024 3:30 PM SURGICAL SERVICES COORDINATOR Office Visit Department of Hospital Internal Medicine in [place], [place] [address] [place] [phone] Mami Momin P.A.-C. [address] [place] [phone] documented as of this encounter Results * (ABNORMAL) Basic Metabolic Panel (07/22/2024 1:56 PM SURGICAL SERVICES COORDINATOR) Potassium, S 4.1 3.6 - 5.2 mmol/L 07/22/2024 3:04 PM SURGICAL SERVICES COORDINATOR DTL Sodium, S 142 135 - 145 mmol/L 07/22/2024 3:04 PM SURGICAL SERVICES COORDINATOR DTL Chloride, S 106 98 - 107 mmol/L 07/22/2024 3:04 PM SURGICAL SERVICES COORDINATOR DTL Bicarbonate, S 23 22 - 29 mmol/L 07/22/2024 3:04 PM SURGICAL SERVICES COORDINATOR DTL Anion Gap 13 7 - 15 07/22/2024 3:04 PM SURGICAL SERVICES COORDINATOR DTL BUN (Blood Urea Nitrogen), S 23 8 - 24 mg/dL 07/22/2024 3:04 PM SURGICAL SERVICES COORDINATOR DTL Creatinine 1.76(H) 0.74 - 1.35 mg/dL 07/22/2024 3:04 PM SURGICAL SERVICES COORDINATOR DTL Estimated GFR (eGFR) 39(L) >=60 mL/min/BSA 07/22/2024 3:04 PM SURGICAL SERVICES COORDINATOR DTL Comment: Estimated GFR calculated using the 2020 CKD_EPI creatinine equation. Calcium, Total, S 9.2 8.8 - 10.2 mg/dL 07/22/2024 3:04 PM SURGICAL SERVICES COORDINATOR DTL Glucose, S 111 70 - 140 mg/dL 07/22/2024 3:04 PM SURGICAL SERVICES COORDINATOR DTL Blood (Blood, Venous) 07/22/2024 1:56 PM SURGICAL SERVICES COORDINATOR 07/22/2024 2:35 PM SURGICAL SERVICES COORDINATOR Viviane Jeffers APRN, C.N.P., D.N.P. LAB BLOOD ADD-ON Final Result [facility] [address] [place] [address], [place] DTL [facility] [address] [place] [address] documented in this encounter Visit Diagnoses Diagnosis Failure Renal Acute (Acute Kidney Injury) (HCC)- Primary documented in this encounter Additional Health Concerns Infection Onset Date Last Indicated Resolved Time Protective Environment 07/18/2024 07/18/2024 documented as of this encounter Care Teams Investigator Claims Relationship Specialty Start Date End Date None Reported, Pcp PCP - General Family Medicine 07/19/24 documented as of this encounter
--- OUTSIDE RECORDS SUMMARY | 2024-07-30 06:33 | XMS_ITS | Encounter Summary ---
Author Organization [facility] Address [address] [place] [address] Care Team Providers Care Transformer Tester Name Role Phone None Reported, Pcp Primary Care Provider Unavail able Encounter Details Date Type Department Care Team (Latest Contact Info) Description 07/22/2024 1:35 PM SCHOOL BUS DISPATCHER - 07/22/2024 11:59 PM SCHOOL BUS DISPATCHER Hospital Encounter Department of Laboratory Medicine and Pathology, [facility] in [place], [place] [address] [place] [phone] Viviane Jeffers, HARDY, C.N.P., D.N.P. [address] [place] [phone] Failure Renal Acute (Acute Kidney Injury) (HCC) Discharge Disposition: Home or Self Care Social History Tobacco Use Types Packs/Day Years Used Date Smoking Tobacco: Former Smokeless Tobacco: Never Alcohol Use Standard Drinks/Week Comments Yes 0 (1 standard drink = 0.6 oz pur e alcohol) [facility] Utilities Answer Date Recorded In the past 12 months has [facility] [employer], oil, or water [facility] threatened to shut off services in your [...] your living situation today? I have a [facility] place to live 07/19/2024 Sex and Gender Information Value Date Recorded Sex Assigned at Not on file Legal Sex Male 6:12 AM SCHOOL BUS DISPATCHER Gender Identity Not on file Sexual Orientation Not on file documented as of this encounter Medications at Time of Discharge [...] daily. 04/22/2024 documented as of this encounter Plan of Treatment Upcoming Encounters Date Type Department Care Team (Late st Contact Info) Description 07/31/2024 11:50 AM SCHOOL BUS DISPATCHER Appointment Department of Laboratory Medicine and Pathology, [place], [place] [address] [place] [phone] Mami Momin P.A.-Barbie [address] [place] [phone] 07/31/2024 12:00 PM SCHOOL BUS DISPATCHER Appointment Department of Laboratory Medicine and Pathology, [facility] in [place], [place] [address] [place] [phone] Mami Momin P.A.-C. [address] [place] [phone] 07/31/2024 3:30 PM SCHOOL BUS DISPATCHER Office Visit Department of Hospital Internal Medicine in [place], [place] [address] [place] [phone] Mami Momin P.A.-Barbie [address] [place] [phone] documented as of this encounter Procedures Procedure Name Priority Date/Time Associated Diagnosis Comments BASIC METABOLIC PANEL, S/P Routine 07/22/2024 1:56 PM SCHOOL BUS DISPATCHER Failure Renal Acute (Acute Kidney Injury) (HCC) documented in this encounter Results * (ABNORMAL) Basic Metabolic Panel (07/22/2024 1:56 PM SCHOOL BUS DISPATCHER) Potassium, S 4.1 3.6 - 5.2 mmol/L 07/22/2024 3:04 PM SCHOOL BUS DISPATCHER DTL Sodium, S 142 135 - 145 mmol/L 07/22/2024 3:04 PM SCHOOL BUS DISPATCHER DTL Chloride, S 106 98 - 107 mmol/L 07/22/2024 3:04 PM SCHOOL BUS DISPATCHER DTL Bicarbonate, S 23 22 - 29 mmol/L 07/22/2024 3:04 PM SCHOOL BUS DISPATCHER DTL Anion Gap 13 7 - 15 07/22/2024 3:04 PM SCHOOL BUS DISPATCHER DTL BUN (Blood Urea Nitrogen), S 23 8 - 24 mg/dL 07/22/2024 3:04 PM SCHOOL BUS DISPATCHER DTL Creatinine 1.76(H) 0.74 - 1.35 mg/dL 07/22/2024 3:04 PM SCHOOL BUS DISPATCHER DTL Estimated GFR (eGFR) 39(L) >=60 mL/min/BSA 07/22/2024 3:04 PM SCHOOL BUS DISPATCHER DTL Comment: Estimated GFR calculated using the 2020 CKD_EPI creatinine equation. Calcium, Total, S 9.2 8.8 - 10.2 mg/dL 07/22/2024 3:04 PM SCHOOL BUS DISPATCHER DTL Glucose, S 111 70 - 140 mg/dL 07/22/2024 3:04 PM SCHOOL BUS DISPATCHER DTL Blood (Blood, Venous) 07/22/2024 1:56 PM SCHOOL BUS DISPATCHER 07/22/2024 2:35 PM SCHOOL BUS DISPATCHER Viviane Jeffers APRN, C.N.P., D.N.P. LAB [place] [address], [facility] [address] [place] [address] documented in this encounter Visit Diagnoses Diagnosis Failure Renal Acute (Acute Kidney Injury) (HCC) documented in this encounter Additional Health Concerns Infection Onset Date Last Indicated Resolved Time Protective Environment 07/18/2024 07/18/2024 documented as of this encounter Care Teams Transformer Tester Relationship Specialty Start Date End Date None Reported, Pcp PCP - General Family Medicine 07/19/24 documented as of this encounter
--- NOTE | 2024-07-30 06:40 | CRLHL7_ITS ---
For Patients: As a result of the Century Cures Act, medical imaging exams and procedure reports are released immediately into your electronic medical record. You may view this report before your referring provider. If you have questions, please contact your health care provider. Indication: Dyspnea and respiratory failure Technique: Chest 1 view Comparison: Chest x-ray 06/08/2024 Findings/Impression: Cardiovascular and mediastinum: Normal heart size with mild aortic tortuosity. Lungs and pleural space: No pleural effusion or pneumothorax. Scattered areas of discoid atelectasis lung bases. Mild pleural thickening right lung laterally. Bones and soft tissues: Stable right rib deformity. Dictated by Marbin Novoa MD @ 07/30/2024 7:07:08 AM (Electronically Signed)
[2024-07-30] MEDS: METHYLPREDNISOLONE SOD SUCC 62.5 MG/ML (125) 125 MG IVP (06:55)
[2024-07-30] MEDS: IPRAT-ALBUT 0.5-2.5 MG/3 ML NEB 1 NEB IH ×5 (07:00→19:55)
[2024-07-30 07:08] LABS: Lactate Sepsis w/Reflex* 1.1 mmol/L (0.5-1.9)
--- OUTSIDE RECORDS SUMMARY | 2024-07-30 07:12 | XMS_ITS | Clinical Summary ---
Author Organization [facility] Address [address] [place] [address] Care Team Providers Care Garbage Truck Helper Name Role Phone None Reported, Pcp Primary Care Provider Unavail able Source Comments Patient records contain information from all sites at [facility]. For routine questions regarding patient records, call [phone] during business hours, M-F 8:00 AM - 5:00 PM Central Time. Record requests for emergency care only can be directed to [phone] at any time.[facility] Allergies Active Allergy Reactions Criticality Noted Date [...] Department Care Team Description 07/23/2024 9:00 AM INSTRUCTIONAL SYSTEMS SPECIALIST Office Visit Department of [facility] Internal Medicine in [address] [phone] Nidia Avilez P.A.-C. Regan, Hannah R, P.A.-C. Failure Renal Acute (Acute Kidney Injury) (HCC) 07/23/2024 Clinical Communication Department of [facility] Internal Medicine in [address] [phone] Mami Momin P.A.-C. 07/23/2024 Clinical Communication Department of [facility] Internal Medicine in [address] [phone] Mami Momin P.A.-C. 07/22/2024 1:35 PM INSTRUCTIONAL SYSTEMS SPECIALIST - 07/22/2024 11:59 PM INSTRUCTIONAL SYSTEMS SPECIALIST Hospital Encounter Department of Laboratory Medicine and Pathology, [facility] in [place], [place] [address] [place] [phone] Viviane Jeffers APRN, C.N.P., D.N.P. Failure Renal Acute (Acute Kidney Injury) (HCC) Discharge Disposition: Home or Self Care 07/22/2024 Clinical Communication Department of [facility] Internal Medicine in [address] [phone] Nidia Avilez P.AYvesC. 07/21/2024 Clinical Communication [facility] [address] [place] [phone] Viviane Jeffers APRN, C.N.P., D.N.P. 07/18/2024 11:50 PM INSTRUCTIONAL SYSTEMS SPECIALIST - 07/20/2024 2:50 PM INSTRUCTIONAL SYSTEMS SPECIALIST Hospital Encounter [facility], [facility] Fourth Floor [address] [place] [phone] Selvin Kahn D.O. Alcohol Abuse With Intoxication [...] drink = 0.6 oz pur e alcohol) [facility] Utilities Answer Date Recorded In the past [address] [facility] [employer], gas, oil, or water [employer] threatened to shut off services in your [...] your living situation today? I have a [facility] place to live 07/19/2024 Sex and Gender Information Value Date Recorded Sex Assigned at Not on file Legal Sex Male 6:12 AM INSTRUCTIONAL SYSTEMS SPECIALIST Gender Identity Not on file Sexual Orientation Not on file Last Filed Vital Signs Vital Sign Reading Time Taken Comments Blood Pressure 109/64 07/20/2024 6:05 AM INSTRUCTIONAL SYSTEMS SPECIALIST Pulse 82 07/20/2024 6:05 AM INSTRUCTIONAL SYSTEMS SPECIALIST Temperature 36.6 C (97.9 F) 07/20/2024 6:05 AM INSTRUCTIONAL SYSTEMS SPECIALIST Respiratory Rate 16 07/20/2024 6:05 AM INSTRUCTIONAL SYSTEMS SPECIALIST Oxygen Saturation 92% 07/20/2024 6:05 AM INSTRUCTIONAL SYSTEMS SPECIALIST Inhaled Oxygen Concentration - - Weight 95.2 kg (209 lb 14.1 oz) 07/19/2024 5:00 AM INSTRUCTIONAL SYSTEMS SPECIALIST Height 172.7 cm (5' 8) 07/19/2024 5:00 AM INSTRUCTIONAL SYSTEMS SPECIALIST Body Mass Index 31.91 07/19/2024 5:00 AM INSTRUCTIONAL SYSTEMS SPECIALIST Plan of Treatment Upcoming Encounters Date Type Department Care Team (Late st Contact Info) Description 07/31/2024 11:50 AM INSTRUCTIONAL SYSTEMS SPECIALIST Appointment Department of Laboratory Medicine and Pathology, [place], [place] [address] [place] [phone] Mami Momin, PLakeshiaA.-CLakeshia [address] [place] [phone] 07/31/2024 12:00 PM INSTRUCTIONAL SYSTEMS SPECIALIST Appointment Department of Laboratory Medicine and Pathology, [place], [place] [address] [place] [phone] Mami Momin P.A.-CLakeshia [address] [place] [phone] 07/31/2024 3:30 PM INSTRUCTIONAL SYSTEMS SPECIALIST Office Visit Department of Hospital Internal Medicine in [place], [place] [address] [place] [phone] Mami Momin P.A.-C. [address] [place] [phone] Health Maintenance Due Date Last Done Comments [...] METABOLIC PANEL, S/P Routine 07/22/2024 1:56 PM INSTRUCTIONAL SYSTEMS SPECIALIST Failure Renal Acute (Acute Kidney Injury) (HCC) GLUCOSE POCT, B Routine 07/20/2024 11:56 AM INSTRUCTIONAL SYSTEMS SPECIALIST PHOSPHORUS (INORGANIC), S Routine 07/20/2024 8:19 AM INSTRUCTIONAL SYSTEMS SPECIALIST MAGNESIUM, S Routine 07/20/2024 8:19 AM INSTRUCTIONAL SYSTEMS SPECIALIST CBC WITH DIFFERENTIAL, B Routine 07/20/2024 8:19 AM INSTRUCTIONAL SYSTEMS SPECIALIST BASIC METABOLIC PANEL, S/P Routine 07/20/2024 8:19 AM INSTRUCTIONAL SYSTEMS SPECIALIST GLUCOSE POCT, B Routine 07/20/2024 8:00 AM INSTRUCTIONAL SYSTEMS SPECIALIST DX CHEST PORTABLE 1 VIEW RAD - Routine (most inpatients and all outpatients) 07/20/2024 7:44 AM INSTRUCTIONAL SYSTEMS SPECIALIST GLUCOSE POCT, B Routine 07/19/2024 8:26 PM INSTRUCTIONAL SYSTEMS SPECIALIST GLUCOSE POCT, B Routine 07/19/2024 5:29 PM INSTRUCTIONAL SYSTEMS SPECIALIST DX FEMUR LEFT 2 VIEWS RAD - Routine (most inpatients and all outpatients) 07/19/2024 2:33 PM INSTRUCTIONAL SYSTEMS SPECIALIST DX PELVIS 1-2 VIEWS RAD - Routine (most inpatients and all outpatients) 07/19/2024 2:33 PM INSTRUCTIONAL SYSTEMS SPECIALIST DX CHEST AP OR PA AND LATERAL 2 VIEWS RAD - Routine (most inpatients and all outpatients) 07/19/2024 2:33 PM INSTRUCTIONAL SYSTEMS SPECIALIST ELECTROPHORESIS, PROTEIN, RANDOM, U Routine 07/19/2024 1:39 PM INSTRUCTIONAL SYSTEMS SPECIALIST GLUCOSE POCT, B Routine 07/19/2024 11:35 AM INSTRUCTIONAL SYSTEMS SPECIALIST GLUCOSE POCT, B Routine 07/19/2024 8:10 AM INSTRUCTIONAL SYSTEMS SPECIALIST CT THORACIC AND LUMBAR SPINE BY RECONSTRUCTION RAD - Emergent (Fastest; for the most critically ill patients) 07/19/2024 2:56 AM INSTRUCTIONAL SYSTEMS [address]IST CT ABDOMEN PELVIS WITH IV CONTRAST RAD - Emergent (Fastest; for the most critically ill patients) 07/19/2024 2:56 AM INSTRUCTIONAL SYSTEMS SPECIALIST CT CHEST WITH IV CONTRAST RAD - Emergent (Fastest; for the most critically ill patients) 07/19/2024 2:56 AM INSTRUCTIONAL SYSTEMS SPECIALIST CT CERVICAL SPINE WITHOUT IV CONTRAST RAD - Emergent (Fastest; for the most critically ill patients) 07/19/2024 2:56 AM INSTRUCTIONAL SYSTEMS SPECIALIST CT HEAD WITHOUT IV CONTRAST RAD - Emergent (Fastest; for the most critically ill patients) 07/19/2024 2:56 AM INSTRUCTIONAL SYSTEMS SPECIALIST ETHANOL, S STAT 07/19/2024 12:32 AM INSTRUCTIONAL SYSTEMS SPECIALIST HEPATIC FUNCTION PANEL, S STAT 07/19/2024 12:32 AM INSTRUCTIONAL SYSTEMS SPECIALIST BASIC METABOLIC PANEL, S/P STAT 07/19/2024 12:32 AM INSTRUCTIONAL SYSTEMS SPECIALIST CBC WITH DIFFERENTIAL, B STAT 07/19/2024 12:32 AM INSTRUCTIONAL SYSTEMS SPECIALIST PHOSPHORUS (INORGANIC), S Routine 07/19/2024 12:25 AM INSTRUCTIONAL SYSTEMS SPECIALIST MAGNESIUM, S Routine 07/19/2024 12:25 AM INSTRUCTIONAL SYSTEMS SPECIALIST HEMOGLOBIN A1C, B Routine 07/19/2024 12:25 AM INSTRUCTIONAL SYSTEMS SPECIALIST ECG STAT 07/19/2024 12:02 AM INSTRUCTIONAL SYSTEMS SPECIALIST ALBUMIN, RANDOM, U Routine 12/22/2014 4: 10 PM CDT from Last 3 Months or Most Recently Relevant to Health Maintenance Results * (ABNORMAL) Basic Metabolic Panel (07/22/2024 1:56 PM INSTRUCTIONAL SYSTEMS SPECIALIST) Only the most recent of3 resultswithin the time period is included. Potassium, S 4.1 3.6 - 5.2 mmol/L 07/22/2024 3:04 PM INSTRUCTIONAL SYSTEMS SPECIALIST DTL Sodium, S 142 135 - 145 mmol/L 07/22/2024 3:04 PM INSTRUCTIONAL SYSTEMS SPECIALIST DTL Chloride, S 106 98 - 107 mmol/L 07/22/2024 3:04 PM INSTRUCTIONAL SYSTEMS SPECIALIST DTL Bicarbonate, S 23 22 - 29 mmol/L 07/22/2024 3:04 PM INSTRUCTIONAL SYSTEMS SPECIALIST DTL Anion Gap 13 7 - 15 07/22/2024 3:04 PM INSTRUCTIONAL SYSTEMS SPECIALIST DTL BUN (Blood Urea Nitrogen), S 23 8 - 24 mg/dL 07/22/2024 3:04 PM INSTRUCTIONAL SYSTEMS SPECIALIST DTL Creatinine 1.76(H) 0.74 - 1.35 mg/dL 07/22/2024 3:04 PM INSTRUCTIONAL SYSTEMS SPECIALIST DTL Estimated GFR (eGFR) 39(L) >=60 mL/min/BSA 07/22/2024 3:04 PM INSTRUCTIONAL SYSTEMS SPECIALIST DTL Comment: Estimated GFR calculated using the 2020 CKD_EPI creatinine equation. Calcium, Total, S 9.2 8.8 - 10.2 mg/dL 07/22/2024 3:04 PM INSTRUCTIONAL SYSTEMS SPECIALIST DTL Glucose, S 111 70 - 140 mg/dL 07/22/2024 3:04 PM INSTRUCTIONAL SYSTEMS SPECIALIST DTL Blood (Blood, Venous) 07/22/2024 1:56 PM INSTRUCTIONAL SYSTEMS SPECIALIST 07/22/2024 2:35 PM INSTRUCTIONAL SYSTEMS SPECIALIST Viviane Jeffers APRN, C.N.P., D.N.P. LAB BLOOD ADD-ON Final Result Performing Organization Address [facility] de Phone Number [facility] [address] [place] [address], [facility] DTL [facility] [address] [place] [address] * (ABNORMAL) Glucose, POCT (07/20/2024 11:56 AM INSTRUCTIONAL SYSTEMS SPECIALIST) Only the most recent of6 resultswithin the time period is included. Pathologist [facility] Glucose, POCT, B 220(H) 70 - 140 mg/dL 07/20/2024 12:00 PM INSTRUCTIONAL SYSTEMS SPECIALIST PCLX Site Capillary 07/20/2024 12:00 PM INSTRUCTIONAL SYSTEMS SPECIALIST PCLX Last Intake 2-3 hours 07/20/2024 12:00 PM INSTRUCTIONAL SYSTEMS SPECIALIST PCLX Blood 07/20/2024 11:5 6 AM INSTRUCTIONAL SYSTEMS SPECIALIST 07/20/2024 12:00 PM INSTRUCTIONAL SYSTEMS SPECIALIST Unknown Provider LAB POCT ORDERABLES-MANUAL Lela l Result Performing Organization Address [facility] de Phone Number [facility] [address] [place] [address], [facility] PCLX [facility] [address] [place] [address] * (ABNORMAL) CBC with Differential, Blood (07/20/2024 8:19 AM INSTRUCTIONAL SYSTEMS SPECIALIST) Only the most recent of2 resultswithin the time period is included. Hemoglobin 11.3(L) 13.2 - 16.6 g/dL 07/20/2024 9:04 AM INSTRUCTIONAL SYSTEMS SPECIALIST DTL Hematocrit 33.7(L) 38.3 - 48.6 % 07/20/2024 9:04 AM INSTRUCTIONAL SYSTEMS SPECIALIST DTL Erythrocytes 3.53(L) 4.35 - 5.65 x10(12)/L 07/20/2024 9:04 AM INSTRUCTIONAL SYSTEMS SPECIALIST DTL MCV 95.5 78.2 - 97.9 fL 07/20/2024 9:04 AM INSTRUCTIONAL SYSTEMS SPECIALIST DTL RBC Distrib Width 15.8(H) 11.8 - 14.5 % 07/20/2024 9:04 AM INSTRUCTIONAL SYSTEMS SPECIALIST DTL Platelet Count 120(L) 135 - 317 x10(9)/L 07/20/2024 9:04 AM INSTRUCTIONAL SYSTEMS SPECIALIST DTL Leukocytes 3.8 3.4 - 9.6 x10(9)/L 07/20/2024 9:04 AM INSTRUCTIONAL SYSTEMS SPECIALIST DTL Neutrophils 2.33 1.56 - 6.45 x10(9)/L 07/20/2024 9:04 AM INSTRUCTIONAL SYSTEMS SPECIALIST PM Lymphocytes 0.85(L) 0.95 - 3.07 x10(9)/L 07/20/2024 9:04 AM INSTRUCTIONAL SYSTEMS SPECIALIST DTL Monocytes 0.49 0.26 - 0.81 x10(9)/L 07/20/2024 9:04 AM INSTRUCTIONAL SYSTEMS SPECIALIST DTL Eosinophils 0.03 0.03 - 0.48 x10(9)/L 07/20/2024 9:04 AM INSTRUCTIONAL SYSTEMS SPECIALIST DTL Basophils 0.05 0.01 - 0.08 x10(9)/L 07/20/2024 9:04 AM INSTRUCTIONAL SYSTEMS SPECIALIST DTL Blood (Blood, Venous) 07/20/2024 8:19 AM INSTRUCTIONAL SYSTEMS SPECIALIST 07/20/2024 8:52 AM INSTRUCTIONAL SYSTEMS SPECIALIST Viviane Jeffers APRN, C.N.P., D.N.P. LAB BLOOD ADD-ON Final Result [facility] [address] [place] [address], [facility] DTL [facility] [address] [place], [place] [phone] [place] [address] [address] [place] [address] * Phosphorus Inorganic (07/20/2024 8:19 AM INSTRUCTIONAL SYSTEMS SPECIALIST) Only the most recent of2 resultswithin the time period is included. Phosphorus (Inorganic), S 2.6 2.5 - 4.5 mg/dL 07/20/2024 9:24 AM INSTRUCTIONAL SYSTEMS SPECIALIST DTL Blood (Blood, Venous) 07/20/2024 8:19 AM INSTRUCTIONAL SYSTEMS SPECIALIST 07/20/2024 9:07 AM INSTRUCTIONAL SYSTEMS SPECIALIST Zuleyma Howard APRN.N.P., D.N.P. LAB BLOOD ADD-ON Final Result Performing Organization Address City/[facility]/ZIP Co de Phone Number [facility] [address] [place] [address] * Magnesium (07/20/2024 8:19 AM INSTRUCTIONAL SYSTEMS SPECIALIST) Only the most recent of2 resultswithin the time period is included. Magnesium, S 2.2 1.7 - 2.3 mg/dL 07/20/2024 9:24 AM INSTRUCTIONAL SYSTEMS SPECIALIST DT Blood (Blood, Venous) 07/20/2024 8:19 AM INSTRUCTIONAL SYSTEMS SPECIALIST 07/20/2024 9:07 AM INSTRUCTIONAL SYSTEMS SPECIALIST Viviane Jeffers APRN, Zuleyma.N.P., D.N.P. LAB BLOOD ADD-ON Final Result Performing Organization Address City/[facility]/ZIP Co de Phone Number [facility] [address] [place] [address] * DX Chest Portable 1 View (07/20/2024 7:44 AM INSTRUCTIONAL SYSTEMS SPECIALIST) Anatomical Region Laterality Modality Chest, Thoracic RST LOS, Tho racic ARZ LOS, Thoracic FLA LOS N/A Digital Radiography Impressions 07/20/2024 7:55 AM INSTRUCTIONAL SYSTEMS SPECIALIST Expansile lesion with minimally displaced fracture in the lateral right sixth rib. Slight atelectasis left base. Chest otherwise negative. Narrative 07/20/2024 7:55 AM INSTRUCTIONAL SYSTEMS SPECIALIST EXAM: DX CHEST PORTABLE 1 VIEW Procedure Note Ronaldo Martinez M.D. - 07/20/2024 EXAM: DX CHEST PORTABLE 1 VIEW IMPRESSION: Expansile lesion with minimally displaced fracture in the lateral rightsixth rib. Slight atelectasis left base. Chest otherwise negative. us Viviane Jeffers APRN, Zuleyma.N.P., D.N.P. [facility] SI2 - [facility] [employer] [facility] PROCED[facility] Final Result * DX Pelvis 1-2 Views (07/19/2024 2:33 PM INSTRUCTIONAL SYSTEMS SPECIALIST) Anatomical Region Laterality Modality Pelvis, Musculoskeletal RST LOS, Musculoskeletal ARZ LOS, Muskuloskeletal FLA LOS N/A Digital Radiography Impressions 07/19/2024 2:48 PM INSTRUCTIONAL SYSTEMS SPECIALIST Diffuse demineralization. No definite acute displaced fracture or traumatic misalignment. Excreted contrast in the bladder. Left iliac lucent lesion better characterized on same day CT. Narrative 07/19/2024 2:48 PM INSTRUCTIONAL SYSTEMS SPECIALIST EXAM: DX PELVIS 1-2 VIEWS Procedure Note Tre Rodriguez D.O. - 07/19/2024 EXAM: DX PELVIS 1-2 VIEWS IMPRESSION: Diffuse demineralization. No definite acute displaced fracture ortraumatic misalignment. Excreted contrast in the bladder. Left iliaclucent lesion better characterized on same day CT. Viviane Jeffers APRN, Zuleyma.N.P., D.N.P. [facility] IMAGING PROCEDURES Final Result * DX Femur Left 2 Views (07/19/2024 2:33 PM INSTRUCTIONAL SYSTEMS SPECIALIST) Anatomical Region Laterality Modality Lower Extremity, Femur, Musc uloskeletal RST LOS, Musculoskeletal ARZ LOS, Muskuloskeletal FLA LOS Left Digit al Radiography Impressions 07/19/2024 3:00 PM INSTRUCTIONAL SYSTEMS SPECIALIST Diffuse demineralization and degenerative changes. No significant joint effusion. No definite acute displaced fracture or traumatic misalignment. Narrative 07/19/2024 3:00 PM INSTRUCTIONAL SYSTEMS SPECIALIST EXAM: DX FEMUR LEFT 2 VIEWS Procedure Note Tre Rodriguez D.O. - 07/19/2024 EXAM: DX FEMUR LEFT 2 VIEWS IMPRESSION: Diffuse demineralization and degenerative changes. No significant jointeffusion. No definite acute displaced fracture or traumaticmisalignment. Viviane Jeffers APRN, Zuleyma.N.P., D.N.P. [facility] SI[facility] - [facility] PROCED[facility] Final Result * DX Chest AP or PA and Lateral 2 Views (07/19/2024 2:33 PM INSTRUCTIONAL SYSTEMS SPECIALIST) Anatomical Region Laterality Modality Chest, Thoracic RST LOS, Tho racic ARZ LOS, Thoracic FLA LOS N/A Digital Radiography Impressions 07/19/2024 2:47 PM INSTRUCTIONAL SYSTEMS SPECIALIST No focal consolidation. No large pleural effusion or discernible pneumothorax. Stable cardiac silhouette size. No rib fractures better characterized on same day CT chest. Narrative 07/19/2024 2:47 PM INSTRUCTIONAL SYSTEMS SPECIALIST EXAM: DX CHEST AP OR PA AND LATERAL 2 VIEWS Procedure Note Tre Rodriguez D.O. - 07/19/2024 EXAM: DX CHEST AP OR PA AND LATERAL 2 VIEWS IMPRESSION: No focal consolidation. No large pleural effusion or discerniblepneumothorax. Stable cardiac silhouette size. No rib fractures bettercharacterized on same day CT chest. Viviane Jeffers APRN, C.N.P., D.N.P. [facility] IMAGING PROCEDURES Final Result * Electrophoresis, Protein, Random, Urine (07/19/2024 1:39 PM INSTRUCTIONAL SYSTEMS SPECIALIST) Protein, Total, Random, U 4 mg/dL 07/19/2024 3:58 PM INSTRUCTIONAL SYSTEMS SPECIALIST DTL Creatinine, Random, U 39 16 - 326 mg/dL 07/19/2024 3:58 PM INSTRUCTIONAL SYSTEMS SPECIALIST DTL Protein/Creati nine Ratio 0.10 <0.18 mg/mg 07/19/2024 3:58 PM INSTRUCTIONAL SYSTEMS SPECIALIST DTL Albumin, mg/dL 0.8 mg/dL 07/23/2024 8:15 AM INSTRUCTIONAL SYSTEMS SPECIALIST [facility] Alpha-1 globulin, mg/dL 0.4 mg/dL 07/23/2024 8:15 AM INSTRUCTIONAL SYSTEMS SPECIALIST [facility]SC Alpha-2 globulin, mg/dL 1.0 mg/dL 07/23/2024 8:15 AM INSTRUCTIONAL SYSTEMS SPECIALIST [facility] Beta globulin, mg/dL 0.9 mg/dL 07/23/2024 8:15 AM INSTRUCTIONAL SYSTEMS SPECIALIST [facility] Gamma globulin, mg/dL 0.9 mg/dL 07/23/2024 8:15 AM INSTRUCTIONAL SYSTEMS SPECIALIST [facility] A/G Ratio 0.25 07/23/2024 8:15 AM INSTRUCTIONAL SYSTEMS SPECIALIST SDSC Impression All fractions present, no apparent M-spike. 07/23/2024 8:15 AM INSTRUCTIONAL SYSTEMS SPECIALIST [facility] Urine (Urine, Midstream) 07/19/2024 1:39 PM INSTRUCTIONAL SYSTEMS SPECIALIST 07/21/2024 6:18 AM INSTRUCTIONAL SYSTEMS SPECIALIST us Viviane Jeffers APRN, C.N.P., D.N.P. LAB URINE ORDERABLES Final Result Performing Organization Address City/State/[facility] Co de Phone Number [facility] [address] [place] [address] [facility] [address] [place] [address] [place] [address] [place] [address] * CT Thoracic and Lumbar Spine by Reconstruction (07/19/2024 2:56 AM INSTRUCTIONAL SYSTEMS SPECIALIST) Anatomical Region Laterality Modality Thoracic Spine, Neuroradiolo gy RST LOS, Neuroradiology ARZ LOS, Neuroradiology FLA LOS N/A Computed Tomography, Compute d Tomography Impressions 07/19/2024 8:12 AM INSTRUCTIONAL SYSTEMS SPECIALIST 1. Age-indeterminate compression fracture of T12 with [...] will reported separately. Narrative 07/19/2024 8:12 AM INSTRUCTIONAL SYSTEMS SPECIALIST EXAM: CT THORACIC AND LUMBAR SPINE BY [...] Pelvis with IV Contrast (07/19/2024 2:56 AM INSTRUCTIONAL SYSTEMS SPECIALIST) Anatomical Region Laterality Modality Abdomen, Pelvis, Abdominal R ST LOS, Abdominal ARZ LOS, Abdominal FLA LOS N/A Computed Tomograp hy, Computed Tomography 07/19/2024 2:48 AM INSTRUCTIONAL SYSTEMS SPECIALIST Impressions 07/19/2024 8:15 AM INSTRUCTIONAL SYSTEMS SPECIALIST 1. Acute appearing nondisplaced fracture involving the [...] the thoracic spine. Narrative 07/19/2024 8:15 AM INSTRUCTIONAL SYSTEMS SPECIALIST EXAM: CT CHEST WITH IV CONTRAST, CT [...] Spine without IV Contrast (07/19/2024 2:56 AM INSTRUCTIONAL SYSTEMS SPECIALIST) Anatomical Region Laterality Modality Cervical Spine, Neuroradiolo gy RST LOS, Neuroradiology ARZ [facility], Neuroradiology FLA LOS N/A Computed Tomography, Compute d Tomography 07/19/2024 2:33 AM INSTRUCTIONAL SYSTEMS SPECIALIST Impressions 07/19/2024 8:03 AM INSTRUCTIONAL SYSTEMS SPECIALIST 1. Technically limited exam due to motion artifact and osteopenia. 2. No definite CT evidence of acute fracture or traumatic malalignment in the cervical spine. Rotatory and posterior subluxation of C1 on C2 is favored to be positional but should be correlated clinically. 3. Overall moderate cervical spondylosis, as described. Narrative 07/19/2024 8:03 AM INSTRUCTIONAL SYSTEMS SPECIALIST EXAM: CT CERVICAL SPINE WITHOUT IV CONTRAST [...] Chest with IV Contrast (07/19/2024 2:56 AM INSTRUCTIONAL SYSTEMS SPECIALIST) Anatomical Region Laterality Modality Chest, Thoracic RST LOS, Tho racic ARZ LOS, Thoracic ARZ LOS, Thoracic FLA LOS N/A Computed Tomography, Compute d Tomography 07/19/2024 2:47 AM INSTRUCTIONAL SYSTEMS SPECIALIST Impressions 07/19/2024 8:15 AM INSTRUCTIONAL SYSTEMS SPECIALIST 1. Acute appearing nondisplaced fracture involving the [...] the thoracic spine. Narrative 07/19/2024 8:15 AM INSTRUCTIONAL SYSTEMS SPECIALIST EXAM: CT CHEST WITH IV CONTRAST, CT [...] Head without IV Contrast (07/19/2024 2:56 AM INSTRUCTIONAL SYSTEMS SPECIALIST) Anatomical Region Laterality Modality Head, Neuroradiology RST LOS , Neuroradiology ARZ LOS, Neuroradiology FLA LOS N/A Computed Tomography, Compute d Tomography 07/19/2024 2:33 AM INSTRUCTIONAL SYSTEMS SPECIALIST Impressions 07/19/2024 7:57 AM INSTRUCTIONAL SYSTEMS SPECIALIST 1. No acute traumatic intracranial findings. 2. Scattered small calvarial lucencies, possibly related to the patient's multiple myeloma (currently in remission). Narrative 07/19/2024 7:57 AM INSTRUCTIONAL SYSTEMS SPECIALIST EXAM: CT HEAD WITHOUT IV CONTRAST COMPARISON: [...] cells are well aerated. Dental extractions and catholic hardware. Scattered small lucencies throughout the calvarium [...] air cells are well aerated.Dental extractions and catholic hardware. Scattered small lucencies throughout the calvarium that could reflect achronic manifestation of the patient's known multiple myeloma. IMPRESSION: 1. No acute traumatic intracranial findings. 2. Scattered small calvarial lucencies, possibly related to the patient'smultiple myeloma (currently in remission). Winston Spivey M.D. [facility] CT PROCEDURES Final Result * (ABNORMAL) Ethanol Level, Serum (07/19/2024 12:32 AM INSTRUCTIONAL SYSTEMS SPECIALIST) Ethanol, S 175(H) <10 mg/dL 07/19/2024 1:1 4 AM INSTRUCTIONAL SYSTEMS SPECIALIST DTL Blood (Blood, Venous) 07/19/2024 12:32 AM INSTRUCTIONAL SYSTEMS SPECIALIST 07/19/2024 12:55 AM INSTRUCTIONAL SYSTEMS SPECIALIST us Winston pSivey M.D. LAB BLOOD NON ADD- ON Final Result Performing Organization Address City/[facility]/ZIP Co de Phone Number [facility] [address] [place] [address], [facility] [address] * (ABNORMAL) Hepatic Function Panel (07/19/2024 12:32 AM INSTRUCTIONAL SYSTEMS SPECIALIST) Bilirubin, Total, S 0.4 0.0 - 1.2 mg/dL 07/19/2024 1:14 AM INSTRUCTIONAL SYSTEMS SPECIALIST DTL Bilirubin, Direct, S <0.2 0.0 - 0.3 mg/dL 07/19/2024 1:14 AM INSTRUCTIONAL SYSTEMS SPECIALIST DTL Aspartate Aminotransferase (AST), S 22 8 - 48 U/L 07/19/2024 1:14 AM INSTRUCTIONAL SYSTEMS SPECIALIST DTL Alanine Aminotransferase (ALT), S 21 7 - 55 U/L 07/19/2024 1:14 AM INSTRUCTIONAL SYSTEMS SPECIALIST DTL Alkaline Phosphatase, S 114 40 - 129 U/L 07/19/2024 1:14 AM INSTRUCTIONAL SYSTEMS SPECIALIST DTL Albumin, S 3.7 3.5 - 5.0 g/dL 07/19/2024 1:14 AM INSTRUCTIONAL SYSTEMS SPECIALIST DTL Protein, Total, S 5.4(L) 6.3 - 7.9 g/dL 07/19/2024 1:14 AM INSTRUCTIONAL SYSTEMS SPECIALIST DTL Blood (Blood, Venous) 07/19/2024 12:32 AM INSTRUCTIONAL SYSTEMS SPECIALIST 07/19/2024 12:55 AM INSTRUCTIONAL SYSTEMS SPECIALIST us Winston Spivey M.D. LAB BLOOD ADD-ON F inal Result Performing Organization Address City/[facility]/ZIP Co de Phone Number [facility] [address] [place], [place] [id number] [place] [address] [facility] [address] [place] [address] * (ABNORMAL) Hemoglobin A1c (07/19/2024 12:25 AM INSTRUCTIONAL SYSTEMS SPECIALIST) Hemoglobin A1c, B 7.6(H) 4.0 - 5.6 % 07/19/2024 11:00 AM INSTRUCTIONAL SYSTEMS SPECIALIST DTL Comment: Hemoglobin A1c values greater than or equal to 6.5 percent are diagnostic for diabetes mellitus. Diagnosis should be confirmed by repeat testing. In diabetic patients, HbA1c goals should be discussed with healthcare provider. Blood (Blood, Venous) 07/19/2024 12:25 AM INSTRUCTIONAL SYSTEMS SPECIALIST 07/19/2024 8:52 AM INSTRUCTIONAL SYSTEMS SPECIALIST Daisha Barros M.D. LAB BLOOD ADD-O N Final Result [facility] [address] [place] [address] * ECG 12 Lead (07/19/2024 12:02 AM INSTRUCTIONAL SYSTEMS SPECIALIST) Ventricular Rate ECG/Min 100 BPM MUSE PA Interval 228 ms MUSE QRSD Interval 112 ms MUSE QT Interval 364 ms MUSE QTC Interval 469 ms MUSE P [place] 36 degrees MUSE R [place] -54 degrees MUSE T Wave [place] 82 degrees MUSE 07/19/2024 12:0 2 AM INSTRUCTIONAL SYSTEMS SPECIALIST 07/19/2024 12:13 AM INSTRUCTIONAL SYSTEMS SPECIALIST Impressions MUSE - 07/19/2024 12:13 AM INSTRUCTIONAL SYSTEMS SPECIALIST Sinus rhythm with 1st degree A-V block [...] ORDERABLES Final Res ult Performing Organization Address City/[facility] Co de Phone Number POWERCHART from Last 3 Months or Most Recently Relevant to Health Maintenance Additional Health Concerns Infection Onset Date Last Indicated Protective Environment 07/18/2024 5 Insurance [employer] Advance Directives For more information, please contact: [phone] * Full Code (Latest Code Status on File) Date Activated Date Inactivated Comments 07/19/2024 7:07 AM 07/20/2024 4:50 PM Question Answer Comments Full Code: Discussed Care Teams 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
--- OUTSIDE RECORDS SUMMARY | 2024-07-30 07:12 | XMS_ITS | Clinical Summary ---
Author Organization [facility] Address [place], [place] [address] Care Team Providers Care Seed Sales Manager Name Role Phone [place] Primary Care Provider [phone] Allergies No known active allergies Medications Ferrous [...] on file Legal Sex Male 3:43 PM [employer] Gender Identity Not on file Sexual Orientation [...] HB ONLY MEDICARE PART B HB ONLY [facility] MR/MSHO Advance Directives * Full Code (Latest Code Status on File) Date Activated Date Inactivated Comments 01/28/2015 9:26 AM 01/28/2015 3:59 PM Care Teams Seed Sales Manager Relationship Specialty Start Date End Date [facility] [place] [address] [facility] [id number] PCP - General 01/15/20
--- OUTSIDE RECORDS SUMMARY | 2024-07-30 07:12 | XMS_ITS ---
Author Organization [facility] Address [address] [place] [address] Care Team Providers Care Rough And Truing Machine Operator Name Role Phone Unavailable Unavailable Unavailable Surgery Details Not on file Complications Check Surgery Details section. Procedure Estimated Blood Loss Check Surgery Details section. Procedure Findings Check Surgery Details section. Procedure Specimens Taken Check Surgery Details section.
--- OUTSIDE RECORDS SUMMARY | 2024-07-30 07:12 | XMS_ITS | Referral Summary ---
Author Organization [facility] Address [address] [place] [address] Care Team Providers Care Dehorner Name Role Phone None Reported, Pcp Primary Care Provider Unavail able Source Comments Patient records contain information from all sites at [facility]. For routine questions regarding patient records, call [phone] during business hours, M-F 8:00 AM - 5:00 PM Central Time. Record requests for emergency care only can be directed to [phone] at any time.[facility] Encounters Date Type Department Care Team Description 07/23/2024 Clinical Communication Department of Hospital Internal Medicine in [address] [phone] Mami Momin PLakeshiaALakeshia-C. 07/23/2024 Clinical Communication Department of Hospital Internal Medicine in [address] [phone] Mami Momin PLakeshiaA.-C. 07/23/2024 9:00 AM BACK SHOE OPERATOR Office Visit Department of Hospital Internal Medicine in [address] [phone] Nidia Avilez P.A.-C. Mami Momin, P.A.-C. Failure Renal Acute (Acute Kidney Injury) (HCC) 07/22/2024 Clinical Communication Department of Hospital Internal Medicine in [address] [phone] Nidia Avilez P.A.-C. 07/22/2024 1:35 PM BACK SHOE OPERATOR - 07/22/2024 11:59 PM BACK SHOE OPERATOR Hospital Encounter Department of Laboratory Medicine and Pathology, [facility], in [place], [place] [address] [place] [address] Viviane Jeffers APRN, C.N.P., D.N.P. Failure Renal Acute (Acute Kidney Injury) (HCC) Discharge Disposition: Home or Self Care 07/21/2024 Clinical Communication RST HIM [address] [place] [address] Viviane Jeffers APRN, C.N.P., D.N.P. 07/18/2024 11:50 PM BACK SHOE OPERATOR - 07/20/2024 2:50 PM BACK SHOE OPERATOR Hospital Encounter [facility], Fourth Floor [address] [place] [address] Selvin Kahn D.O. Alcohol Abuse With Intoxication [...] drink = 0.6 oz pur e alcohol) [facility] Utilities Answer Date Recorded In the past 12 months has e [employer], gas, oil, or water [employer] threatened to shut off services in your [...] your living situation today? I have a [facility] place to live 07/19/2024 Sex and Gender Information Value Date Recorded Sex Assigned at Not on file Legal Sex Male 6:12 AM BACK SHOE OPERATOR Gender Identity Not on file Sexual Orientation Not on file Last Filed Vital Signs Vital Sign Reading Time Taken Comments Blood Pressure 109/64 07/20/2024 6:05 AM BACK SHOE OPERATOR Pulse 82 07/20/2024 6:05 AM BACK SHOE OPERATOR Temperature 36.6 C (97.9 F) 07/20/2024 6:05 AM BACK SHOE OPERATOR Respiratory Rate 16 07/20/2024 6:05 AM BACK SHOE OPERATOR Oxygen Saturation 92% 07/20/2024 6:05 AM BACK SHOE OPERATOR Inhaled Oxygen Concentration - - Weight 95.2 kg (209 lb 14.1 oz) 07/19/2024 5:00 AM BACK SHOE OPERATOR Height 172.7 cm (5' 8) 07/19/2024 5:00 AM BACK SHOE OPERATOR Body Mass Index 31.91 07/19/2024 5:00 AM BACK SHOE OPERATOR Plan of Treatment Upcoming Encounters Date Type Department Care Team (Late st Contact Info) Description 07/31/2024 11:50 AM BACK SHOE OPERATOR Appointment Department of Laboratory Medicine and Pathology, [place], [place] [address] [place] [address] Mami Momin, PLakeshiaA.-CLakeshia [address] [place] [address] 07/31/2024 12:00 PM BACK SHOE OPERATOR Appointment Department of Laboratory Medicine and Pathology, [place], [place] [address] [place] [address] Mami Momin P.A.-CLakeshia [address] [place] [phone] 07/31/2024 3:30 PM BACK SHOE OPERATOR Office Visit Department of Hospital Internal Medicine in [place], [place] [address] [place] [phone] Mami Momin P.A.-C. [address] [place] [address] Procedures Procedure Name Priority Date/Time Associated Diagnosis Comments BASIC METABOLIC PANEL, S/P Routine 07/22/2024 1:56 PM BACK SHOE OPERATOR Failure Renal Acute (Acute Kidney Injury) (HCC) GLUCOSE POCT, B Routine 07/20/2024 11:56 AM BACK SHOE OPERATOR PHOSPHORUS (INORGANIC), S Routine 07/20/2024 8:19 AM BACK SHOE OPERATOR MAGNESIUM, S Routine 07/20/2024 8:19 AM BACK SHOE OPERATOR CBC WITH DIFFERENTIAL, B Routine 07/20/2024 8:19 AM BACK SHOE OPERATOR BASIC METABOLIC PANEL, S/P Routine 07/20/2024 8:19 AM BACK SHOE OPERATOR GLUCOSE POCT, B Routine 07/20/2024 8:00 AM BACK SHOE OPERATOR DX CHEST PORTABLE 1 VIEW RAD - Routine (most inpatients and all outpatients) 07/20/2024 7:44 AM BACK SHOE OPERATOR GLUCOSE POCT, B Routine 07/19/2024 8:26 PM BACK SHOE OPERATOR GLUCOSE POCT, B Routine 07/19/2024 5:29 PM BACK SHOE OPERATOR DX FEMUR LEFT 2 VIEWS RAD - Routine (most inpatients and all outpatients) 07/19/2024 2:33 PM BACK SHOE OPERATOR DX PELVIS 1-2 VIEWS RAD - Routine (most inpatients and all outpatients) 07/19/2024 2:33 PM BACK SHOE OPERATOR DX CHEST AP OR PA AND LATERAL 2 VIEWS RAD - Routine (most inpatients and all outpatients) 07/19/2024 2:33 PM BACK SHOE OPERATOR ELECTROPHORESIS, PROTEIN, RANDOM, U Routine 07/19/2024 1:39 PM BACK SHOE OPERATOR GLUCOSE POCT, B Routine 07/19/2024 11:35 AM BACK SHOE OPERATOR GLUCOSE POCT, B Routine 07/19/2024 8:10 AM BACK SHOE O[address] CT THORACIC AND LUMBAR SPINE BY RECONSTRUCTION RAD - Emergent (Fastest; for the most critically ill patients) 07/19/2024 2:[address] ABDOMEN PELVIS WITH IV CONTRAST RAD - Emergent (Fastest; for the most critically ill patients) 07/19/2024 2:56 [address] BACK SHOE O[address] CT CHEST WITH IV CONTRAST RAD - Emergent (Fastest; for the most critically ill patients) 07/19/2024 2:56 [address] BACK SHOE O[address] CT CERVICAL SPINE WITHOUT IV CONTRAST RAD - Emergent (Fastest; for the most critically ill patients) 07/19/2024 2:56 [address] BACK SHOE O[address] CT HEAD WITHOUT IV CONTRAST RAD - Emergent (Fastest; for the most critically ill patients) 07/19/2024 2:56 AM BACK SHOE OPERATOR ETHANOL, S STAT 07/19/2024 12:32 AM BACK SHOE OPERATOR HEPATIC FUNCTION PANEL, S STAT 07/19/2024 12:32 AM BACK SHOE OPERATOR BASIC METABOLIC PANEL, S/P STAT 07/19/2024 12:32 AM BACK SHOE OPERATOR CBC WITH DIFFERENTIAL, B STAT 07/19/2024 12:32 AM BACK SHOE OPERATOR PHOSPHORUS (INORGANIC), S Routine 07/19/2024 12:25 AM BACK SHOE OPERATOR MAGNESIUM, S Routine 07/19/2024 12:25 AM BACK SHOE OPERATOR HEMOGLOBIN A1C, B Routine 07/19/2024 12:25 AM BACK SHOE OPERATOR ECG STAT 07/19/2024 12:02 AM BACK SHOE OPERATOR ALBUMIN, RANDOM, U Routine 12/22/2014 4: 10 PM CDT from Last 3 Months or Most Recently Relevant to Health Maintenance Results * (ABNORMAL) Basic Metabolic Panel (07/22/2024 1:56 PM BACK SHOE OPERATOR) Only the most recent of3 resultswithin the time period is included. Potassium, S 4.1 3.6 - 5.2 mmol/L 07/22/2024 3:04 PM BACK SHOE OPERATOR DTL Sodium, S 142 135 - 145 mmol/L 07/22/2024 3:04 PM BACK SHOE OPERATOR DTL Chloride, S 106 98 - 107 mmol/L 07/22/2024 3:04 PM BACK SHOE OPERATOR DTL Bicarbonate, S 23 22 - 29 mmol/L 07/22/2024 3:04 PM BACK SHOE OPERATOR DTL Anion Gap 13 7 - 15 07/22/2024 3:04 PM BACK SHOE OPERATOR DTL BUN (Blood Urea Nitrogen), S 23 8 - 24 mg/dL 07/22/2024 3:04 PM BACK SHOE OPERATOR DTL Creatinine 1.76(H) 0.74 - 1.35 mg/dL 07/22/2024 3:04 PM BACK SHOE OPERATOR DTL Estimated GFR (eGFR) 39(L) >=60 mL/min/BSA 07/22/2024 3:04 PM BACK SHOE OPERATOR DTL Comment: Estimated GFR calculated using the 2020 CKD_EPI creatinine equation. Calcium, Total, S 9.2 8.8 - 10.2 mg/dL 07/22/2024 3:04 PM BACK SHOE OPERATOR DTL Glucose, S 111 70 - 140 mg/dL 07/22/2024 3:04 PM BACK SHOE OPERATOR DTL Blood (Blood, Venous) 07/22/2024 1:56 PM BACK SHOE OPERATOR 07/22/2024 2:35 PM BACK SHOE OPERATOR Viviane Jeffers APRN, C.N.P., D.N.P. LAB BLOOD ADD-ON Final Result Performing Organization Address [facility]/ZIP Co de Phone Number [facility] [address] [place] [address], [facility] DTL [facility] [address] [place] [address] * (ABNORMAL) Glucose, POCT (07/20/2024 11:56 AM BACK SHOE OPERATOR) Only the most recent of6 resultswithin the time period is included. [facility] Glucose, POCT, B 220(H) 70 - 140 mg/dL 07/20/2024 12:00 PM BACK SHOE OPERATOR PCLX Site Capillary 07/20/2024 12:00 PM BACK SHOE OPERATOR PCLX Last Intake 2-3 hours 07/20/2024 12:00 PM BACK SHOE OPERATOR PCLX Blood 07/20/2024 11:5 6 AM BACK SHOE OPERATOR 07/20/2024 12:00 PM BACK SHOE OPERATOR us Unknown Provider LAB POCT ORDERABLES-MANUAL Lela l Result Performing Organization Address [facility] Co de Phone Number POC [facility] [address] [place] [address], [facility] PCLX [facility] POC [address] [place] [address] * (ABNORMAL) CBC with Differential, Blood (07/20/2024 8:19 AM BACK SHOE OPERATOR) Only the most recent of2 resultswithin the time period is included. [facility] Hemoglobin 11.3(L) 13.2 - 16.6 g/dL 07/20/2024 9:04 AM BACK SHOE OPERATOR DTL Hematocrit 33.7(L) 38.3 - 48.6 % 07/20/2024 9:04 AM BACK SHOE OPERATOR DTL Erythrocytes 3.53(L) 4.35 - 5.65 x10(12)/L 07/20/2024 9:04 AM BACK SHOE OPERATOR DTL MCV 95.5 78.2 - 97.9 fL 07/20/2024 9:04 AM BACK SHOE OPERATOR DTL RBC Distrib Width 15.8(H) 11.8 - 14.5 % 07/20/2024 9:04 AM BACK SHOE OPERATOR DTL Platelet Count 120(L) 135 - 317 x10(9)/L 07/20/2024 9:04 AM BACK SHOE OPERATOR DTL Leukocytes 3.8 3.4 - 9.6 x10(9)/L 07/20/2024 9:04 AM BACK SHOE OPERATOR DTL Neutrophils 2.33 1.56 - 6.45 x10(9)/L 07/20/2024 9:04 AM BACK SHOE OPERATOR DHPM Lymphocytes 0.85(L) 0.95 - 3.07 x10(9)/L 07/20/2024 9:04 AM BACK SHOE OPERATOR DTL Monocytes 0.49 0.26 - 0.81 x10(9)/L 07/20/2024 9:04 AM BACK SHOE OPERATOR DTL Eosinophils 0.03 0.03 - 0.48 x10(9)/L 07/20/2024 9:04 AM BACK SHOE OPERATOR DTL Basophils 0.05 0.01 - 0.08 x10(9)/L 07/20/2024 9:04 AM BACK SHOE OPERATOR DTL Blood (Blood, Venous) 07/20/2024 8:19 AM BACK SHOE OPERATOR 07/20/2024 8:52 AM BACK SHOE OPERATOR Viviane Jeffers APRN, C.N.P., D.N.P. LAB BLOOD ADD-ON Final Result [facility] [address] [place] [address], [facility] DTL [facility] [address] [place] [address] DHPM [facility] [address] [place] [address] * Phosphorus Inorganic (07/20/2024 8:19 AM BACK SHOE OPERATOR) Only the most recent of2 resultswithin the time period is included. Phosphorus (Inorganic), S 2.6 2.5 - 4.5 mg/dL 07/20/2024 9:24 AM BACK SHOE OPERATOR DTL Blood (Blood, Venous) 07/20/2024 8:19 AM BACK SHOE OPERATOR 07/20/2024 9:07 AM BACK SHOE OPERATOR Viviane Jeffers APRN, C.N.P., D.N.P. LAB BLOOD ADD-ON Final Result Performing Organization Address City/[facility] Co de Phone Number [facility] [address] [place] [address] * Magnesium (07/20/2024 8:19 AM BACK SHOE OPERATOR) Only the most recent of2 resultswithin the time period is included. Magnesium, S 2.2 1.7 - 2.3 mg/dL 07/20/2024 9:24 AM BACK SHOE OPERATOR DTL Blood (Blood, Venous) 07/20/2024 8:19 AM BACK SHOE OPERATOR 07/20/2024 9:07 AM BACK SHOE OPERATOR Viviane Jeffers APRN C.N.P., D.N.P. LAB BLOOD ADD-ON Final Result Performing Organization Address [facility] Co de Phone Number [facility] [address] [place] [address] * DX Chest Portable 1 View (07/20/2024 7:44 AM BACK SHOE OPERATOR) Anatomical Region Laterality Modality Chest, Thoracic RST LOS, Tho racic ARZ LOS, Thoracic FLA LOS N/A Digital Radiography Impressions 07/20/2024 7:55 AM BACK SHOE OPERATOR Expansile lesion with minimally displaced fracture in the lateral right sixth rib. Slight atelectasis left base. Chest otherwise negative. Narrative 07/20/2024 7:55 AM BACK SHOE OPERATOR EXAM: DX CHEST PORTABLE 1 VIEW Procedure Note Ronaldo Martinez M.D. - 07/20/2024 EXAM: DX CHEST PORTABLE 1 VIEW IMPRESSION: Expansile lesion with minimally displaced fracture in the lateral rightsixth rib. Slight atelectasis left base. Chest otherwise negative. Viviane Jeffers APRN, C.N.P., D.N.P. IMG DIAGNO STIC IMAGING PROCEDURES Final Result * DX Pelvis 1-2 Views (07/19/2024 2:33 PM BACK SHOE OPERATOR) Anatomical Region Laterality Modality Pelvis, Musculoskeletal RST LOS, Musculoskeletal ARZ LOS, Muskuloskeletal FLA LOS N/A Digital Radiography Impressions 07/19/2024 2:48 PM BACK SHOE OPERATOR Diffuse demineralization. No definite acute displaced fracture or traumatic misalignment. Excreted contrast in the bladder. Left iliac lucent lesion better characterized on same day CT. Narrative 07/19/2024 2:48 PM BACK SHOE OPERATOR EXAM: DX PELVIS 1-2 VIEWS Procedure Note Tre Rodriguez D.O. - 07/19/2024 EXAM: DX PELVIS 1-2 VIEWS IMPRESSION: Diffuse demineralization. No definite acute displaced fracture ortraumatic misalignment. Excreted contrast in the bladder. Left iliaclucent lesion better characterized on same day CT. Viviane Jeffers APRN, C.N.P., D.N.P. [facility] DIAGNO STIC IMAGING PROCEDURES Final Result * DX Femur Left 2 Views (07/19/2024 2:33 PM BACK SHOE OPERATOR) Anatomical Region Laterality Modality Lower Extremity, Femur, Musc uloskeletal RST LOS, Musculoskeletal ARZ LOS, Muskuloskeletal FLA LOS Left Digit al Radiography Impressions 07/19/2024 3:00 PM BACK SHOE OPERATOR Diffuse demineralization and degenerative changes. No significant joint effusion. No definite acute displaced fracture or traumatic misalignment. Narrative 07/19/2024 3:00 PM BACK SHOE OPERATOR EXAM: DX FEMUR LEFT 2 VIEWS Procedure Note Tre Rodriguez D.O. - 07/19/2024 EXAM: DX FEMUR LEFT 2 VIEWS IMPRESSION: Diffuse demineralization and degenerative changes. No significant jointeffusion. No definite acute displaced fracture or traumaticmisalignment. us Viviane Jeffers APRN, C.N.P., D.N.P. IM DIAGNO STIC IMAGING PROCEDURES Final Result * DX Chest AP or PA and Lateral 2 Views (07/19/2024 2:33 PM BACK SHOE OPERATOR) Anatomical Region Laterality Modality Chest, Thoracic RST LOS, Tho racic ARZ LOS, Thoracic FLA LOS N/A Digital Radiography Impressions 07/19/2024 2:47 PM BACK SHOE OPERATOR No focal consolidation. No large pleural effusion or discernible pneumothorax. Stable cardiac silhouette size. No rib fractures better characterized on same day CT chest. Narrative 07/19/2024 2:47 PM BACK SHOE OPERATOR EXAM: DX CHEST AP OR PA AND [...] Electrophoresis, Protein, Random, Urine (07/19/2024 1:39 PM BACK SHOE OPERATOR) Protein, Total, Random, U 4 mg/dL 07/19/2024 3:58 PM BACK SHOE OPERATOR DTL Creatinine, Random, U 39 16 - 326 mg/dL 07/19/2024 3:58 PM BACK SHOE OPERATOR DTL Protein/Creati nine Ratio 0.10 <0.18 mg/mg 07/19/2024 3:58 PM BACK SHOE OPERATOR DTL Albumin, mg/dL 0.8 mg/dL 07/23/2024 8:15 AM BACK SHOE OPERATOR SDSC Alpha-1 globulin, mg/dL 0.4 mg/dL 07/23/2024 8:15 AM BACK SHOE OPERATOR SDSC Alpha-2 globulin, mg/dL 1.0 mg/dL 07/23/2024 8:15 AM BACK SHOE OPERATOR SDSC Beta globulin, mg/dL 0.9 mg/dL 07/23/2024 8:15 AM BACK SHOE OPERATOR SDSC Gamma globulin, mg/dL 0.9 mg/dL 07/23/2024 8:15 AM BACK SHOE OPERATOR SDSC A/G Ratio 0.25 07/23/2024 8:15 AM BACK SHOE OPERATOR SDSC Impression All fractions present, no apparent M-spike. 07/23/2024 8:15 AM BACK SHOE OPERATOR SDSC Urine (Urine, Midstream) 07/19/2024 1:39 PM BACK SHOE OPERATOR 07/21/2024 6:18 AM BACK SHOE OPERATOR us Viviane Jeffers APRN, C.N.P., D.N.P. LAB URINE ORDERABLES Final Result [facility] [address] [place] [address] [facility] [address] [place] [address] [facility] [address] [place] [address] [place] [address] * CT Thoracic and Lumbar Spine by Reconstruction (07/19/2024 2:56 AM BACK SHOE OPERATOR) Anatomical Region Laterality Modality Thoracic Spine, Neuroradiolo gy RST LOS, Neuroradiology ARZ LOS, Neuroradiology FLA LOS N/A Computed Tomography, Compute d Tomography Impressions 07/19/2024 8:12 AM BACK SHOE OPERATOR 1. Age-indeterminate compression fracture of T12 with [...] will reported separately. Narrative 07/19/2024 8:12 AM BACK SHOE OPERATOR EXAM: CT THORACIC AND LUMBAR SPINE BY [...] will reported separately. us Winston Spivey M.D. [facility] CT PROCEDURES Final Result * CT Abdomen Pelvis with IV Contrast (07/19/2024 2:56 AM BACK SHOE OPERATOR) Anatomical Region Laterality Modality Abdomen, Pelvis, Abdominal R ST LOS, Abdominal ARZ LOS, Abdominal FLA LOS N/A Computed Tomograp hy, Computed Tomography 07/19/2024 2:48 AM BACK SHOE OPERATOR Impressions 07/19/2024 8:15 AM BACK SHOE OPERATOR 1. Acute appearing nondisplaced fracture involving the [...] the thoracic spine. Narrative 07/19/2024 8:15 AM BACK SHOE OPERATOR EXAM: CT CHEST WITH IV CONTRAST, CT [...] Spine without IV Contrast (07/19/2024 2:56 AM BACK SHOE OPERATOR) Anatomical Region Laterality Modality Cervical Spine, Neuroradiolo gy RST LOS, Neuroradiology ARZ LOS, Neuroradiology FLA LOS N/A Computed Tomography, Compute d Tomography 07/19/2024 2:33 AM BACK SHOE OPERATOR Impressions 07/19/2024 8:03 AM BACK SHOE OPERATOR 1. Technically limited exam due to motion artifact and osteopenia. 2. No definite CT evidence of acute fracture or traumatic malalignment in the cervical spine. Rotatory and posterior subluxation of C1 on C2 is favored to be positional but should be correlated clinically. 3. Overall moderate cervical spondylosis, as described. Narrative 07/19/2024 8:03 AM BACK SHOE OPERATOR EXAM: CT CERVICAL SPINE WITHOUT IV CONTRAST [...] spondylosis, as described. us Winston Spivey M.D. [facility] CT PROCEDURES Final Result * CT Chest with IV Contrast (07/19/2024 2:56 AM BACK SHOE OPERATOR) Anatomical Region Laterality Modality Chest, Thoracic RST LOS, Tho racic ARZ LOS, Thoracic ARZ LOS, Thoracic FLA LOS N/A Computed Tomography, Compute d Tomography 07/19/2024 2:47 AM BACK SHOE OPERATOR Impressions 07/19/2024 8:15 AM BACK SHOE OPERATOR 1. Acute appearing nondisplaced fracture involving the [...] the thoracic spine. Narrative 07/19/2024 8:15 AM BACK SHOE OPERATOR EXAM: CT CHEST WITH IV CONTRAST, CT [...] Head without IV Contrast (07/19/2024 2:56 AM BACK SHOE OPERATOR) Anatomical Region Laterality Modality Head, Neuroradiology RST [facility] , Neuroradiology ARZ [facility], [facility] N/A Computed Tomography, Compute d Tomography 07/19/2024 2:33 AM BACK SHOE OPERATOR Impressions 07/19/2024 7:57 AM BACK SHOE OPERATOR 1. No acute traumatic intracranial findings. 2. Scattered small calvarial lucencies, possibly related to the patient's multiple myeloma (currently in remission). Narrative 07/19/2024 7:57 AM BACK SHOE OPERATOR EXAM: CT HEAD WITHOUT IV CONTRAST COMPARISON: [...] cells are well aerated. Dental extractions and [employer]. Scattered small lucencies throughout the calvarium [...] air cells are well aerated.Dental extractions and [employer] hardware. Scattered small lucencies throughout the calvarium that could reflect achronic manifestation of the patient's known multiple myeloma. IMPRESSION: 1. No acute traumatic intracranial findings. 2. Scattered small calvarial lucencies, possibly related to the patient'smultiple myeloma (currently in remission). Winston Spivey M.D. [facility] CT PROCEDURES Final Result * (ABNORMAL) Ethanol Level, Serum (07/19/2024 12:32 AM BACK SHOE OPERATOR) Ethanol, S 175(H) <10 mg/dL 07/19/2024 1:1 4 AM BACK SHOE OPERATOR DTL Blood (Blood, Venous) 07/19/2024 12:32 AM BACK SHOE OPERATOR 07/19/2024 12:55 AM BACK SHOE OPERATOR Winston Spivey M.D. LAB BLOOD NON ADD- ON Final Result Performing Organization Address [facility]/ZIP Co de Phone Number [facility] [address] [place] [address], [facility] [address] [place] [address] * (ABNORMAL) Hepatic Function Panel (07/19/2024 12:32 AM BACK SHOE OPERATOR) Bilirubin, Total, S 0.4 0.0 - 1.2 mg/dL 07/19/2024 1:14 AM BACK SHOE OPERATOR DTL Bilirubin, Direct, S <0.2 0.0 - 0.3 mg/dL 07/19/2024 1:14 AM BACK SHOE OPERATOR DTL Aspartate Aminotransferase (AST), S 22 8 - 48 U/L 07/19/2024 1:14 AM BACK SHOE OPERATOR DTL Alanine Aminotransferase (ALT), S 21 7 - 55 U/L 07/19/2024 1:14 AM BACK SHOE OPERATOR DTL Alkaline Phosphatase, S 114 40 - 129 U/L 07/19/2024 1:14 AM BACK SHOE OPERATOR DTL Albumin, S 3.7 3.5 - 5.0 g/dL 07/19/2024 1:14 AM BACK SHOE OPERATOR DTL Protein, Total, S 5.4(L) 6.3 - 7.9 g/dL 07/19/2024 1:14 AM BACK SHOE OPERATOR DTL Blood (Blood, Venous) 07/19/2024 12:32 AM BACK SHOE OPERATOR 07/19/2024 12:55 AM BACK SHOE OPERATOR us Winston Spivey M.D. LAB BLOOD ADD-ON F inal Result Performing Organization Address City/[facility]/ZIP Co de Phone Number [facility] [address] [place] [address], [place] DTL [facility] [address] [place] [address] * (ABNORMAL) Hemoglobin A1c (07/19/2024 12:25 AM BACK SHOE OPERATOR) Hemoglobin A1c, B 7.6(H) 4.0 - 5.6 % 07/19/2024 11:00 AM BACK SHOE OPERATOR DTL Comment: Hemoglobin A1c values greater than or equal to 6.5 percent are diagnostic for diabetes mellitus. Diagnosis should be confirmed by repeat testing. In diabetic patients, HbA1c goals should be discussed with healthcare provider. Blood (Blood, Venous) 07/19/2024 12:25 AM BACK SHOE OPERATOR 07/19/2024 8:52 AM BACK SHOE OPERATOR us Daisha Barros M.D. LAB BLOOD ADD-O N Final Result [address] [address], [facility] [place] [address] * ECG 12 Lead (07/19/2024 12:02 AM BACK SHOE OPERATOR) Ventricular Rate ECG/Min 100 BPM MUSE NC Interval 228 ms MUSE QRSD Interval 112 ms MUSE QT Interval 364 ms MUSE QTC Interval 469 ms MUSE P [place] 36 degrees MUSE R [place] -54 degrees MUSE T Wave [place] 82 degrees MUSE 07/19/2024 12:0 2 AM BACK SHOE OPERATOR 07/19/2024 12:13 AM BACK SHOE OPERATOR Impressions MUSE - 07/19/2024 12:13 AM BACK SHOE OPERATOR Sinus rhythm with 1st degree A-V block [...] Advance Directives For more information, please contact: [phone] * Full Code (Latest Code Status on File) Date Activated Date Inactivated Comments 07/19/2024 7:07 AM 07/20/2024 4:50 PM Question Answer Comments Full Code: Discussed Care Teams [place] Relationship Specialty Start Date End Date None Reported, Pcp PCP - General Family Medicine 07/19/24
--- OUTSIDE RECORDS SUMMARY | 2024-07-30 07:12 | XMS_ITS | Clinical Summary ---
Author Organization [facility] er Address [address] [place] [address] Care Team Providers Care Heat Engineering Teacher Name Role Phone None, Pcp Primary Care [...] complete this topic Insurance [address] [place] [address] [place] [employer] Care Teams Heat Engineering Teacher Relationship Specialty Start Date End Date None, Pcp [address] [facility] [place] [address] PCP - General Test And Turn Up Technician 04/09/24
--- OUTSIDE RECORDS SUMMARY | 2024-07-30 07:13 | XMS_ITS | Encounter Summary ---
Author Organization [facility] Address [address] [place] [address] Care Team Providers Care Career Services Assistant Name Role Phone None Reported, Pcp Primary Care Provider Unavail able Reason for Referral * Outpatient (Routine) - Authorized Specialty Diagnoses / Procedures Referred By Debbie t Referred To Contact Internal Medicine / General Internal Medicine Diagnoses Failure Renal Acute (Acute Kidney Injury) (HCC) Alcohol Abuse With Intoxication Unspecified (HCC) Mami Momin P.A.-C. [address] [place] [phone] Phone: tel: fax: [facility] Referral ID Status Reason Start Date Expiration Date V isits Requested Visits Authorized [id number] Authorized 07/23/2024 01/22/2026 1 1 AL ACCOUNTING CLERK Encounter Details Date Type Department Care Team (Late st Contact Info) Description 07/23/2024 Clinical Communication Department of Hospital Internal Medicine in [place], [place] [address] [place] [phone] Mami Momin P.A.-C. [address] [place] [phone] Social History Tobacco Use Types Packs/Day Years Used Date Smoking Tobacco: Former Smokeless Tobacco: Never Alcohol Use Standard Drinks/Week Comments Yes 0 (1 standard drink = 0.6 oz pur e alcohol) [facility] Utilities Answer Date Recorded In the past 12 months has [employer], gas, oil, or water company threatened to [...] your living situation today? I have a [facility] place to live 07/19/2024 Sex and Gender Information Value Date Recorded Sex Assigned at Not on file Legal Sex Male 6:12 AM FISCAL ACCOUNTING CLERK Gender Identity Not on file Sexual Orientation Not on file documented as of this encounter Plan of Treatment Upcoming Encounters Date Type Department Care Team (Late st Contact Info) Description 07/31/2024 11:50 AM FISCAL ACCOUNTING CLERK Appointment Department of Laboratory Medicine and Pathology, [facility], in [place], [place] [address] [place] [address] AnnapolisMami P.A.-C. [address] [place] [phone] 07/31/2024 12:00 PM FISCAL ACCOUNTING CLERK Appointment Department of Laboratory Medicine and Pathology, [facility] in [place], [place] [address] [place] [address] Mami Momin P.A.-C. [address] [place] [phone] 07/31/2024 3:30 PM FISCAL ACCOUNTING CLERK Office Visit Department of Hospital Internal Medicine in [place], [place] [address] [place] [phone] Mami Momin P.A.-C. [address] [place] [phone] Scheduled Orders Name Type Priority Associated Diagnoses [...] documented as of this encounter Care Teams Career Services Assistant Relationship Specialty Start Date End Date None Reported, Pcp PCP - General Family Medicine 07/19/24 documented as of this encounter
--- OUTSIDE RECORDS SUMMARY | 2024-07-30 07:13 | XMS_ITS | Encounter Summary ---
Author Organization [facility] Address [address] [place] [address] Care Team Providers Care Drier Feeder Name Role Phone None Reported, Pcp Primary Care Provider Unavail able Encounter Details Date Type Department Care Team (Latest Contact Info) Description 07/22/2024 1:35 PM BINDERY CHIEF - 07/22/2024 11:59 PM BINDERY CHIEF Hospital Encounter Department of Laboratory Medicine and Pathology, [facility] in [place], [place] [address] [place] [phone] Viviane Jeffers, HARDY, C.N.P., D.N.P. [address] [place] [phone] Failure Renal Acute (Acute Kidney Injury) (HCC) Discharge Disposition: Home or Self Care Social History Tobacco Use Types Packs/Day Years Used Date Smoking Tobacco: Former Smokeless Tobacco: Never Alcohol Use Standard Drinks/Week Comments Yes 0 (1 standard drink = 0.6 oz pur e alcohol) [facility] Utilities Answer Date Recorded In the past 12 months has [facility] [employer], oil, or water [employer] threatened to shut off services in your [...] your living situation today? I have a [facility] place to live 07/19/2024 Sex and Gender Information Value Date Recorded Sex Assigned at Not on file Legal Sex Male 6:12 AM BINDERY CHIEF Gender Identity Not on file Sexual Orientation [...] st Contact Info) Description 07/31/2024 11:50 AM BINDERY CHIEF Appointment Department of Laboratory Medicine and Pathology, [place], [place] [address] [place] [phone] Mami Momin P.A.-Barbie [address] [place] [phone] 07/31/2024 12:00 PM BINDERY CHIEF Appointment Department of Laboratory Medicine and Pathology, [facility] in [place], [place] [address] [place] [phone] Mami Momin P.A.-C. [address] [place] [phone] 07/31/2024 3:30 PM BINDERY CHIEF Office Visit Department of Hospital Internal Medicine in [place], [place] [address] [place] [phone] Mami Momin P.A.-Barbie [address] [place] [phone] documented as of this encounter Procedures Procedure Name Priority Date/Time Associated Diagnosis Comments BASIC METABOLIC PANEL, S/P Routine 07/22/2024 1:56 PM BINDERY CHIEF Failure Renal Acute (Acute Kidney Injury) (HCC) documented in this encounter Results * (ABNORMAL) Basic Metabolic Panel (07/22/2024 1:56 PM BINDERY CHIEF) Potassium, S 4.1 3.6 - 5.2 mmol/L 07/22/2024 3:04 PM BINDERY CHIEF DTL Sodium, S 142 135 - 145 mmol/L 07/22/2024 3:04 PM BINDERY CHIEF DTL Chloride, S 106 98 - 107 mmol/L 07/22/2024 3:04 PM BINDERY CHIEF DTL Bicarbonate, S 23 22 - 29 mmol/L 07/22/2024 3:04 PM BINDERY CHIEF DTL Anion Gap 13 7 - 15 07/22/2024 3:04 PM BINDERY CHIEF DTL BUN (Blood Urea Nitrogen), S 23 8 - 24 mg/dL 07/22/2024 3:04 PM BINDERY CHIEF DTL Creatinine 1.76(H) 0.74 - 1.35 mg/dL 07/22/2024 3:04 PM BINDERY CHIEF DTL Estimated GFR (eGFR) 39(L) >=60 mL/min/BSA 07/22/2024 3:04 PM BINDERY CHIEF DTL Comment: Estimated GFR calculated using the 2020 CKD_EPI creatinine equation. Calcium, Total, S 9.2 8.8 - 10.2 mg/dL 07/22/2024 3:04 PM BINDERY CHIEF DTL Glucose, S 111 70 - 140 mg/dL 07/22/2024 3:04 PM BINDERY CHIEF DTL Blood (Blood, Venous) 07/22/2024 1:56 PM BINDERY CHIEF 07/22/2024 2:35 PM BINDERY CHIEF Viviane Jeffers APRN, C.N.P., D.N.P. LAB B[place] [address], [facility] 200 [place] [address] documented in this encounter Visit Diagnoses Diagnosis Failure Renal Acute (Acute Kidney Injury) (HCC) documented in this encounter Additional Health Concerns Infection Onset Date Last Indicated Resolved Time Protective Environment 07/18/2024 07/18/2024 documented as of this encounter Care Teams Drier Feeder Relationship Specialty Start Date End Date None Reported, Pcp PCP - General Family Medicine 07/19/24 documented as of this encounter
--- OUTSIDE RECORDS SUMMARY | 2024-07-30 07:13 | XMS_ITS | Encounter Summary ---
Author Organization [facility] Address [address] [place] [address] Care Team Providers Care Machine Clothing Replacer Name Role Phone None Reported, Pcp Primary Care Provider Unavail able Encounter Details Date Type Department Care Team (Late st Contact Info) Description 07/23/2024 Clinical Communication Department of Hospital Internal Medicine in [place], [place] [address] [place] [phone] Mami Momin, Carlos-CLakeshia [address] [place] [phone] Social History Tobacco Use Types Packs/Day Years Used Date Smoking Tobacco: Former Smokeless Tobacco: Never Alcohol Use Standard Drinks/Week Comments Yes 0 (1 standard drink = 0.6 oz pur e alcohol) [facility] Utilities Answer Date Recorded In the past 12 months has e [employer], gas, oil, or water [employer] threatened to shut off services in your [...] your living situation today? I have a [facility] place to live 07/19/2024 Sex and Gender Information Value Date Recorded Sex Assigned at Not on file Legal Sex Male 6:12 AM HR BUSINESS PARTNER Gender Identity Not on file Sexual Orientation Not on file documented as of this encounter Plan of Treatment Upcoming Encounters Date Type Department Care Team (Late st Contact Info) Description 07/31/2024 11:50 AM HR BUSINESS PARTNER Appointment Department of Laboratory Medicine and Pathology, [place], [place] [address] [place] [phone] Mami Momin, P.A.-C. [address] [place] [phone] 07/31/2024 12:00 PM HR BUSINESS PARTNER Appointment Department of Laboratory Medicine and Pathology, [facility] in [place], [place] [address] [place] [address] Mami Momin, P.A.-CLakeshia [address] [place] [phone] 07/31/2024 3:30 PM HR BUSINESS PARTNER Office Visit Department of Hospital Internal Medicine in [place], [place] [address] [place] [phone] Mami Momin P.A.-C. [address] [place] [phone] Scheduled Orders Name Type Priority Associated Diagnoses [...] documented as of this encounter Care Teams Machine Clothing Replacer Relationship Specialty Start Date End Date None Reported, Pcp PCP - General Family Medicine 07/19/24 documented as of this encounter
--- OUTSIDE RECORDS SUMMARY | 2024-07-30 07:13 | XMS_ITS | Encounter Summary ---
Author Organization [facility] Address [address] [place] [address] Care Team Providers Care Sand Bobber Name Role Phone None Reported, Pcp Primary Care Provider Unavail able Reason for Referral * Outpatient (Routine) - Closed Specialty Diagnoses / Procedures Referred By Debbie das Referred To Contact Internal Medicine / General Internal Medicine Diagnoses Failure Renal Acute (Acute Kidney Injury) (HCC) Nidia Avilez, P.A.-C. [address] [place] [phone] Phone: tel: fax: [facility] Referral ID Status Reason Start Date Expiration Date Visits Re quested Visits Authorized [id number] Closed 07/22/2024 01/21/2026 1 1 MATIC PATTERN EDGER Encounter Details Date Type Department Care Team (Late st Contact Info) Description 07/22/2024 Clinical Communication Department of Hospital Internal Medicine in [place], [place] [address] [place] [phone] Nidia Avilez, P.A.-C. [address] [place] [phone] Social History Tobacco Use Types Packs/Day Years Used Date Smoking Tobacco: Former Smokeless Tobacco: Never Alcohol Use Standard Drinks/Week Comments Yes 0 (1 standard drink = 0.6 oz pur e alcohol) [facility] Utilities Answer Date Recorded In the past 12 months has [employer], gas, oil, or water company threatened [...] your living situation today? I have a [facility] place to live 07/19/2024 Sex and Gender Information Value Date Recorded Sex Assigned at Not on file Legal Sex Male 6:12 AM AUTOMATIC PATTERN EDGER Gender Identity Not on file Sexual Orientation Not on file documented as of this encounter Plan of Treatment Upcoming Encounters Date Type Department Care Team (Late st Contact Info) Description 07/31/2024 11:50 AM AUTOMATIC PATTERN EDGER Appointment Department of Laboratory Medicine and Pathology, [facility], in [place], [place] [address] [place] [phone] Mami Momin P.A.-C. [address] [place] [phone] 07/31/2024 12:00 PM AUTOMATIC PATTERN EDGER Appointment Department of Laboratory Medicine and Pathology, [facility] in [place], [place] [address] [place] [phone] Mami Momin P.A.-C. 200 [place] [phone] 07/31/2024 3:30 PM AUTOMATIC PATTERN EDGER Office Visit Department of Hospital Internal Medicine in [place], [place] [address] [place] [phone] Mami Momin P.A.-C. [address] [place] [phone] Scheduled Referrals Name Type Priority Associated Diagnoses Orde r Schedule [facility] Internal Medicine office visit (clinic) Outpatient Referral Routine Failure Renal Acute (Acute Kidney Injury) (HCC) Expected: 07/24/2024, Expires: 10/20/2025 documented as of this encounter Visit Diagnoses Diagnosis Failure Renal Acute (Acute Kidney Injury) (HCC)- Primary documented in this encounter Additional Health Concerns Infection Onset Date Last Indicated Resolved Time Protective Environment 07/18/2024 07/18/2024 documented as of this encounter Care Teams Sand Bobber Relationship Specialty Start Date End Date None Reported, Pcp PCP - General Family Medicine 07/19/24 documented as of this encounter
--- OUTSIDE RECORDS SUMMARY | 2024-07-30 07:13 | XMS_ITS | Encounter Summary ---
Author Organization [facility] Address [address] [place] [address] Care Team Providers Care Safety Leader Name Role Phone None Reported, Pcp Primary Care Provider Unavail able Encounter Details Date Type Department Care Team (Late st Contact Info) Description 07/21/2024 Clinical Communication [facility] [address] [place] [phone] Viviane Jeffers APRN, C.N.P., D.N.P. [address] [place] [phone] Social History Tobacco Use Types Packs/Day Years Used Date Smoking Tobacco: Former Smokeless Tobacco: Never Alcohol Use Standard Drinks/Week Comments Yes 0 (1 standard drink = 0.6 oz pur e alcohol) [facility] Utilities Answer Date Recorded In the past 12 months has e [employer], gas, oil, or water [employer] threatened to shut off services in your [...] your living situation today? I have a [facility] place to live 07/19/2024 Sex and Gender Information Value Date Recorded Sex Assigned at Not on file Legal Sex Male 6:12 AM ASSEMBLER TUBING Gender Identity Not on file Sexual Orientation Not on file documented as of this encounter Plan of Treatment Upcoming Encounters Date Type Department Care Team (Late st Contact Info) Description 07/31/2024 11:50 AM ASSEMBLER TUBING Appointment Department of Laboratory Medicine and Pathology, [place], [place] [address] [place] [phone] Mami Momin, P.A.-C. [address] [place] [phone] 07/31/2024 12:00 PM ASSEMBLER TUBING Appointment Department of Laboratory Medicine and Pathology, [facility] in [place], [place] [address] [place] [phone] Mami Momin, P.A.-C. [address] [place] [phone] 07/31/2024 3:30 PM ASSEMBLER TUBING Office Visit Department of Hospital Internal Medicine in [place], [place] [address] [place] [phone] Mami Momin P.A.-C. [address] [place] [phone] documented as of this encounter Results * (ABNORMAL) Basic Metabolic Panel (07/22/2024 1:56 PM ASSEMBLER TUBING) Potassium, S 4.1 3.6 - 5.2 mmol/L 07/22/2024 3:04 PM ASSEMBLER TUBING DTL Sodium, S 142 135 - 145 mmol/L 07/22/2024 3:04 PM ASSEMBLER TUBING DTL Chloride, S 106 98 - 107 mmol/L 07/22/2024 3:04 PM ASSEMBLER TUBING DTL Bicarbonate, S 23 22 - 29 mmol/L 07/22/2024 3:04 PM ASSEMBLER TUBING DTL Anion Gap 13 7 - 15 07/22/2024 3:04 PM ASSEMBLER TUBING DTL BUN (Blood Urea Nitrogen), S 23 8 - 24 mg/dL 07/22/2024 3:04 PM ASSEMBLER TUBING DTL Creatinine 1.76(H) 0.74 - 1.35 mg/dL 07/22/2024 3:04 PM ASSEMBLER TUBING DTL Estimated GFR (eGFR) 39(L) >=60 mL/min/BSA 07/22/2024 3:04 PM ASSEMBLER TUBING DTL Comment: Estimated GFR calculated using the 2020 CKD_EPI creatinine equation. Calcium, Total, S 9.2 8.8 - 10.2 mg/dL 07/22/2024 3:04 PM ASSEMBLER TUBING DTL Glucose, S 111 70 - 140 mg/dL 07/22/2024 3:04 PM ASSEMBLER TUBING DTL Blood (Blood, Venous) 07/22/2024 1:56 PM ASSEMBLER TUBING 07/22/2024 2:35 PM ASSEMBLER TUBING Viviane Jeffers APRN, C.N.P., D.N.P. LAB BLOOD ADD-ON Final Result [facility] [address] [place] [address], [place] DTL [facility] [address] [place] [address] documented in this encounter Visit Diagnoses Diagnosis Failure Renal Acute (Acute Kidney Injury) (HCC)- Primary documented in this encounter Additional Health Concerns Infection Onset Date Last Indicated Resolved Time Protective Environment 07/18/2024 07/18/2024 documented as of this encounter Care Teams Safety Leader Relationship Specialty Start Date End Date None Reported, Pcp PCP - General Family Medicine 07/19/24 documented as of this encounter
--- OUTSIDE RECORDS SUMMARY | 2024-07-30 07:13 | XMS_ITS | Encounter Summary ---
Author Organization [facility] [place] [facility] Address [address] [place] [address] Care Team Providers Care Radio Recorder Name Role Phone None Reported, Pcp Primary Care Provider Unavail able Reason for Visit * Outpatient (Routine) - Closed Specialty Diagnoses / Procedures Referred By Debbie das Referred To Contact Internal Medicine / General Internal Medicine Diagnoses Failure Renal Acute (Acute Kidney Injury) (HCC) Nidia Avilez P.ALakeshia-CLakeshia [address] [place] [phone] Phone: tel: fax: [facility] Referral ID Status Reason Start Date Expiration Date Visits Re quested Visits Authorized [id number] Closed 07/22/2024 01/21/2026 1 1 Encounter Details Date Type Department Care Team (Late st Contact Info) Description 07/23/2024 9:00 AM DIRECTOR ACCOUNT MANAGEMENT Office Visit Department of Hospital Internal Medicine in [place], [place] [address] [place] [phone] Nidia Avilez P.A.-C. [address] [place] [phone] Mami Momin P.A.-C. [address] [place] [phone] Failure Renal Acute (Acute Kidney Injury) (HCC) Social History Tobacco Use Types Packs/Day Years Used Date Smoking Tobacco: Former Smokeless Tobacco: Never Alcohol Use Standard Drinks/Week Comments Yes 0 (1 standard drink = 0.6 oz pur e alcohol) [facility] Utilities Answer Date Recorded In the past 12 months has e [employer], [employer], oil, or water [employer] threatened to shut off services in your [...] on file Legal Sex Male 6:12 AM DIRECTOR ACCOUNT MANAGEMENT Gender Identity Not on file Sexual Orientation Not on file documented as of this encounter Progress Notes * Mami Momin P.A.-C. - 07/23/2024 9:00 AM CST DATE OF MALIKA VISIT TYPE: PHONE-VISIT: 07/23/24 HOSPITAL: [facility] DISCHARGE DATE: 07/20/24 DISCHARGING HIM SERVICE: Medicine 7 REMOTE PATIENT MONITORING: N/A Consult conducted via real-time telephone/audio technology in [facility] to the patient in Patient's Home The patient's legally authorized construction sales representative was present N/A SUBJECTIVE Power [...] 1.67 with plans to follow up with [facility] team for evaluation of kidney function. Labs completed on 07/21 revealed anincrease Cr to 1.76. Given the minimal increase and that the patient is tolerating oral intake, Power was encouraged to increase fluid intake along avoiding caffeine and alcohol. He was has been scheduled to follow up with his PCP on August 06 at [facility]. Given that his PCP appointment is 2 [...] on 07/29/2024 PCP appointment scheduled at the [facility] for 08/06/2024 Monitor for decrease urine output, changes in urine, abdominal pain. If these concerning signs occur should be re-evaluated. Mami Momin P.A.-C. Total time spent talking with the patient and coordinating care is 35 minutes. CTOR ACCOUNT MANAGEMENT CTOR ACCOUNT MANAGEMENT documented in this encounter Plan of Treatment Upcoming Encounters Date Type Department Care Team (Late st Contact Info) Description 07/31/2024 11:50 AM DIRECTOR ACCOUNT MANAGEMENT Appointment Department of Laboratory Medicine and Pathology, [facility] in [place], [place] [address] [place] [phone] Mami Momin P.A.-C. [address] [place] [phone] 07/31/2024 12:00 PM DIRECTOR ACCOUNT MANAGEMENT Appointment Department of Laboratory Medicine and Pathology, [facility] in [place], [place] [address] [place] [phone] Mami Momin P.A.-C. [address] [place] [phone] 07/31/2024 3:30 PM DIRECTOR ACCOUNT MANAGEMENT Office Visit Department of Hospital Internal Medicine in [place], [place] [address] [place] [phone] Mami Momin P.A.-C. [address] [place] [phone] documented as of this encounter Visit Diagnoses Diagnosis Failure Renal Acute (Acute Kidney Injury) (HCC) documented in this encounter Additional Health Concerns Infection Onset Date Last Indicated Resolved Time Protective Environment 07/18/2024 07/18/2024 documented as of this encounter Care Teams Radio Recorder Relationship Specialty Start Date End Date None Reported, Pcp PCP - General Family Medicine 07/19/24 documented as of this encounter
--- OUTSIDE RECORDS SUMMARY | 2024-07-30 07:13 | XMS_ITS | Encounter Summary ---
Author Organization [facility] Address [address] [place] [address] Care Team Providers Care Delivery Truck Driver Heavy Name Role Phone None Reported, Pcp Primary Care Provider Unavail able Reason for Visit * Reason Comments Alcohol Intoxication Fall * Auth/Cert (Routine) Specialty Diagnoses / Procedures Referred By Debbie t Referred To Contact Diagnoses Alcohol Abuse With Intoxication Unspecified (HCC) Repeated Falls Procedures Inpatient Referral ID Status Reason Start Date Expiration Date Visits Re quested Visits Authorized [id number] 1 1 Encounter Details Date Type Department Care Team (Latest Contact Info) Description 07/18/2024 11:50 PM CLINICAL IMPLEMENTATION SPECIALIST - 07/20/2024 2:50 PM CLINICAL IMPLEMENTATION SPECIALIST Hospital Encounter [facility], [facility], [facility], Fourth Floor [address] [place] [address] Selvin Kahn D.O. [address] [place] [phone] Alcohol Abuse With Intoxication Unspecified (HCC) (Primary Dx); Repeated Falls; Decline Functional Status [R53.81] Discharge Disposition: Home or Self Care Social History Tobacco Use Types Packs/Day Years Used Date Smoking Tobacco: Former Smokeless Tobacco: Never Alcohol Use Standard Drinks/Week Comments Yes 0 (1 standard drink = 0.6 oz pur e alcohol) [facility] Utilities Answer Date Recorded In the past [...] your living situation today? I have a [facility] place to live 07/19/2024 Sex and Gender Information Value Date Recorded Sex Assigned at Not on file Legal Sex Male 6:12 AM CLINICAL IMPLEMENTATION SPECIALIST Gender Identity Not on file Sexual Orientation Not on file documented as of this encounter Last Filed Vital Signs Vital Sign Reading Time Taken Comments Blood Pressure 109/64 07/20/2024 6:05 AM CLINICAL IMPLEMENTATION SPECIALIST Pulse 82 07/20/2024 6:05 AM CLINICAL IMPLEMENTATION SPECIALIST Temperature 36.6 C (97.9 F) 07/20/2024 6:05 AM CLINICAL IMPLEMENTATION SPECIALIST Respiratory Rate 16 07/20/2024 6:05 AM CLINICAL IMPLEMENTATION SPECIALIST Oxygen Saturation 92% 07/20/2024 6:05 AM CLINICAL IMPLEMENTATION SPECIALIST Inhaled Oxygen Concentration - - Weight 95.2 kg (209 lb 14.1 oz) 07/19/2024 5:00 AM CLINICAL IMPLEMENTATION SPECIALIST Height 172.7 cm (5' 8) 07/19/2024 5:00 AM CLINICAL IMPLEMENTATION SPECIALIST Body Mass Index 31.91 07/19/2024 5:00 AM CLINICAL IMPLEMENTATION SPECIALIST documented in this encounter Functional Status * Intimate Partner Violence Question Answer Date of Assessment Author Within the last year, have y ou been humiliated or emotionally abused in other ways by your partner or ex-partner? No 07/19/2024 2:01 PM CLINICAL IMPLEMENTATION SPECIALIST Kevin Torres M.S.W., Shu. Within the last year, have y ou been afraid of your partner or ex-partner? No 07/19/2024 2:01 PM CLINICAL IMPLEMENTATION SPECIALIST Kevin Torres M.S .W., JonathonSKeyana. Within the last year, have y ou been raped or forced to have any kind of sexual activity by your partner or ex-partner? No 07/19/2024 2:01 PM CLINICAL IMPLEMENTATION SPECIALIST Elva Torres M.S.W., JonathonSKeyana. Within the last year, have y ou been kicked, hit, slapped, or otherwise physically hurt by your partner or ex-partner? No 07/19/2024 2:01 PM CLINICAL IMPLEMENTATION SPECIALIST Elva Torres M.S.W., Breanna.Dale.S.W. documented as of this encounter Discharge Summaries * Viviane Jeffers APRN, C.N.P., D.N.P. - 07/20/2024 12:39 PM CST DISCHARGE SUMMARY BRIEF OVERVIEW Discharge Hospital: [facility] Discharge Provider: No att. providers found Discharge Provider Team: Hospital Internal Medicine (HIM) - [facility] Medicine 7 ([facility]) Primary Care Providers: None Reported, Pcp (General) [...] Outpatient H[place]. -An indeterminate 6 mm subpleural left lower lobe nodule was noted on CT chest. Radiology suggests repeat CT at 6-12 months; then CT at 18-24 months, if no change. PCP to review prior imaging performed at the [facility] as these reports/imaging were not available during [...] and outpatient Hematology follow up at the [facility]. MEDICATIONS CHANGED DURING THIS HOSPITAL STAY Medications stopped: none. Medications changed: metformin. Medications added: acetaminophen, lidocaine ointment, rymbknao-caijcaljqr-ajremngtf. CONSULTS ORDERED DURING THIS ADMISSION IP CONSULT TO HEMATOLOGY IP CONSULT TO ADDICTION IP CONSULT TO TRAUMA CRITICAL CARE AND GENERAL SURGERY IP CONSULT TO CARE MANAGEMENT CONDITION AT DISCHARGE Stable The above plan of care was discussed with Dr. Baeza, HIM senior microsoft consultant. I saw and evaluated Mr. Power Piña today and provided counseling [id number] at bedside. I personally spent a total of greater than 30 minutes in counseling and coordination of care as described above to facilitate the hospital discharge. Discharge instructions were provided to the patient and caregiver(s). ICAL IMPLEMENTATION SPECIALIST ICAL IMPLEMENTATION SPECIALIST documented in this encounter Medications at Time [...] details about our team's plan of care. ICAL IMPLEMENTATION SPECIALIST * Yareli Feliz, Marylou, R.Ph., BCPS - [...] at discharge:-- Yareli Feliz, Malathi., R.Ph., BCPS ICAL IMPLEMENTATION SPECIALIST * Robert Baptiste M.D. - 07/19/2024 10:31 [...] home as well as a hospital bed. ICAL IMPLEMENTATION SPECIALIST * Viviane Jeffers APRN, C.N.P., D.N.P. - 07/19/2024 9:05 AM CST [facility] Medicine 7 ([facility]) Progress Notes SUBJECTIVE Mr. Power Piña is [...] Intake/Output Summary (Last 24 hours) at 07/19/2024 4198 Last data filed at 07/19/2024 0735 Gross [...] / PLAN Mr. Piña is hospitalized on [place] [address] ([facility]) for evaluation and management of Repeated Falls. # Repeated Falls # Pathologic Rib Fractures # Multiple Myeloma In Remission (HCC) # Osteopenia # Alcohol Moderate Or Severe Use Disorder (Dependence) Uncomplicated ([facility]) # Hyponatremia # Diabetes Mellitus Type 2 ([facility]) # Chronic Kidney Disease (CKD), Stage 3b Glomerular Filtration Rate (GFR) 30 To 44 ([facility]) # Chronic Obstructive Pulmonary Disease Exacerbation ([facility]) # Obesity Body Mass Index [...] care was discussed with Dr. Baeza, HIM senior microsoft consultant. ICAL IMPLEMENTATION SPECIALIST documented in this encounter H&P Notes * Daisha Alcala M.B.B.S., M.Ana. - 07/19/2024 5:52 AM CST T Medicine 7 ([facility]) Admission Note SUBJECTIVE CHIEF COMPLAINT/REASON FOR VISIT Does post fall HISTORY OF PRESENT ILLNESS Mr. Power Piña [...] 75 minutes providing and coordinating care today. ICAL IMPLEMENTATION SPECIALIST ICAL IMPLEMENTATION SPECIALIST ICAL IMPLEMENTATION SPECIALIST documented in this encounter Consult Notes * Kevin Torres M.SDov, L.G.S.W. - 07/19/2024 2:04 PM CSTAssociated Order(s): IP CONSULT TO ADDICTION; IP CONSULT TO CARE MANAGEMENT; IP CONSULT TO [facility] Assessment SUBJECTIVE ASSESSMENT INFORMATION Referral Data Referral Source: Provider/Service Referral Reason: Psychosocial assessment, Chemical Health assessment, Discharge Planning Previous Assessment: No Field Technical Assistant Services Used: No Primary Language: Surinamese Field Technical Assistant Services Used: No Sexuality/Pronoun: he/him Person(s) present [...] Patient stated that he was at the [facility] ???having a few beers?? and that he ???drank too much and fell down ???patient stated that he usually has 2-4 beers when he goes to the [facility] which is about once a week but [...] a big support system for the patient. Spirituality/Catholic/Cultural Factors: Gabbi History: Yes, [place] Employment: retired Trauma: social services counselor had conversation regarding current trauma Social Drivers [...] that he usually goes to his local [facility] about once a week for the ???meat [...] self and reviewed role as an inpatient social services counselor. Patient expressed understanding and was agreeable to participate in this visitwith family present. He appeared to be a reliable historian for the purpose of this assessment.Patient stated that he was at the [facility] ???having a few beers?? and that he ???drank too much and fell down ???patient stated that he usually has 2-4 beers when he goes to the [facility] which is about once a week but [...] strength based approach. Education provided regarding the [place] Senior LinkAge Line. The patient declined referral. PLAN Social Work will sign off at this time as no further Care Management needs have been identified at this time. Please reconsult Care Management if needs are identified. Anticipated barriers to the transition of care/plan: None identified Carmina Espana, Todd 07/19/2024 ICAL IMPLEMENTATION SPECIALIST * Gabriela Carr P.Vic, D.P.T. - 07/19/2024 [...] 78 y.o. male who was admitted to [facility] in [place] on 07/18/2024 for Alcohol Abuse With Intoxication [...] Evaluation Assessments: Strength: Generalized weakness Outcome Measures: -[facility] Inpatient Short Form: -PAC Basic Mobility [...] at or below 17 Clinicians answer the AM-[facility] Inpatient Short Form based on observed [...] (min): 30 min Gabriela Carr P.T., D.P.T. ICAL IMPLEMENTATION SPECIALIST * Claudia Livingston O.T., O.T.D. - 07/19/2024 [...] 78 y.o. male who was admitted to [facility] in [place] on 07/18/2024 for Alcohol Abuse With Intoxication [...] Tolerates 20-30 minutes of activity Outcome Measures: [facility] Inpatient Short Form: Putting on and taking [...] at or below 17 Clinicians answer the [facility] Inpatient Short Form based on observed patient [...] and modification tools as needed including leg diesel instructor and/or bed adjustments. Activity Recommendations During Hospitalization: [...] availability, Safety concerns Barriers to Discharge Comments: [facility] 2 additional steps to enter Recommended Adaptive Equipment - OT: Dressing aids Clinical Impression: Currently, patient presents with impairments including pain, decreased strength, impaired balance, decreased activity tolerance, and limited endurance resulting in functional deficits including impaired functional mobility and decreased independence with self care tasks. Prior to current hospitalization patient was living alone in [facility] home. He reports independence with all [...] (min): 66 min Claudia Livingston O.T., O.T.D. ICAL IMPLEMENTATION SPECIALIST * Conner Woodson M.D. - 07/19/2024 9:17 AM CSTAssociated Order(s): IP CONSULT TO HEMATOLOGY Hematology Hospital Consult Service - Consult Note SUBJECTIVE REFERRAL SOURCE [facility] Medicine ([facility]) CHIEF COMPLAINT/REASON FOR CONSULTATION History multiple myeloma [...] with recurrent exacerbations.He is [facility] for which we do not have records of his prior treatments. At the time of diagnosis he reports being treated with an injectable drug (does not know the name) and subsequently being placed on lenalidomide since. He was last seen [facility] the [facility] in May and is unsure if he has been following with a assembler utility buildings. Does note having a PET scan in [...] Hematology consults can be reached at pager #[phone]. Conner Woodson MD PGY2 Internal Medicine Cosigned by Purvi Villalta M.D., Ph.D. at 07/19/2024 2:42 PM CLINICAL IMPLEMENTATION SPECIALIST ICAL IMPLEMENTATION SPECIALIST ICAL IMPLEMENTATION SPECIALIST Associated attestation - Purvi Villalta M.D., Ph.D. - 07/19/2024 2:42 PM CLINICAL IMPLEMENTATION SPECIALIST This note is to attest that I [...] clinical status regarding this issue. Please page [phone] to re-engage our team. This patient was seen and examined with Dr. Baptiste, [facility] trauma senior microsoft consultant, who was in agreement with the above plan and assessment. Cosigned by Robert Baptiste M.D. at 07/28/2024 7:22 AM CLINICAL IMPLEMENTATION SPECIALIST ICAL IMPLEMENTATION SPECIALIST ICAL IMPLEMENTATION SPECIALIST ICAL IMPLEMENTATION SPECIALIST documented in this encounter Nursing Notes * [...] Goal: Maintain a safe environment Outcome: Progressing ICAL IMPLEMENTATION SPECIALIST ICAL IMPLEMENTATION SPECIALIST * Angela Morrow, C.R.T., L.R.T. - 07/19/2024 10:19 PM CLINICAL IMPLEMENTATION SPECIALIST Patient started Hyperinflation Therapy (HIT) algorithm on: [...] Angela Jimenez C.R.T., L.R.T. 07/20/24 3:59 AM CLINICAL IMPLEMENTATION SPECIALIST ICAL IMPLEMENTATION SPECIALIST ICAL IMPLEMENTATION SPECIALIST * Juliana Robles C.R.T., L.R.T. - 07/19/2024 [...] Juliana Robles C.R.T., Cameron 07/19/24 5:37 PM CLINICAL IMPLEMENTATION SPECIALIST ICAL IMPLEMENTATION SPECIALIST documented in this encounter ED Notes * [...] in ED Course. Selvin Kahn D.O. 07/19/24814 ICAL IMPLEMENTATION SPECIALIST * Winston Castillo M.D. - 07/19/2024 2:08 [...] CT scans Winston Castillo M.D. Resident 07/19/24320 ICAL IMPLEMENTATION SPECIALIST documented in this encounter Miscellaneous Notes * [...] and outpatient [facility] follow [place] [facility]. ICAL IMPLEMENTATION SPECIALIST ICAL IMPLEMENTATION SPECIALIST ICAL IMPLEMENTATION SPECIALIST ICAL IMPLEMENTATION SPECIALIST documented in this encounter Plan of Treatment Upcoming Encounters Date Type Department Care Team (Late st Contact Info) Description 07/31/2024 11:50 AM CLINICAL IMPLEMENTATION SPECIALIST Appointment Department of Laboratory Medicine and Pathology, [place], [place] [address] [place] [phone] Mami Momin P.A.-C. [address] [place] [phone] 07/31/2024 12:00 PM CLINICAL IMPLEMENTATION SPECIALIST Appointment Department of Laboratory Medicine and Pathology, [place], [place] [address] [place] [phone] Mami Momin P.A.-C. [address] [place] [phone] 07/31/2024 3:30 PM CLINICAL IMPLEMENTATION SPECIALIST Office Visit Department of Hospital Internal Medicine in [place], [place] [address] [place] [phone] Mami Momin P.A.-C. [address] [place] [phone] documented as of this encounter Procedures Procedure Name Priority Date/Time Associated Diagnosis Comments GLUCOSE POCT, B Routine 07/20/2024 11:56 AM CLINICAL IMPLEMENTATION SPECIALIST CBC WITH DIFFERENTIAL, B Routine 07/20/2024 8:19 AM CLINICAL IMPLEMENTATION SPECIALIST PHOSPHORUS (INORGANIC), S Routine 07/20/2024 8:19 AM CLINICAL IMPLEMENTATION SPECIALIST MAGNESIUM, S Routine 07/20/2024 8:19 AM CLINICAL IMPLEMENTATION SPECIALIST BASIC METABOLIC PANEL, S/P Routine 07/20/2024 8:19 AM CLINICAL IMPLEMENTATION SPECIALIST GLUCOSE POCT, B Routine 07/20/2024 8:00 AM CLINICAL IMPLEMENTATION SPECIALIST DX CHEST PORTABLE 1 VIEW RAD - Routine (most inpatients and all outpatients) 07/20/2024 7:44 AM CLINICAL IMPLEMENTATION SPECIALIST GLUCOSE POCT, B Routine 07/19/2024 8:26 PM CLINICAL IMPLEMENTATION SPECIALIST GLUCOSE POCT, B Routine 07/19/2024 5:29 PM CLINICAL IMPLEMENTATION SPECIALIST DX PELVIS 1-2 VIEWS RAD - Routine (most inpatients and all outpatients) 07/19/2024 2:33 PM CLINICAL IMPLEMENTATION SPECIALIST DX FEMUR LEFT 2 VIEWS RAD - Routine (most inpatients and all outpatients) 07/19/2024 2:33 PM CLINICAL IMPLEMENTATION SPECIALIST DX CHEST AP OR PA AND LATERAL 2 VIEWS RAD - Routine (most inpatients and all outpatients) 07/19/2024 2:33 PM CLINICAL IMPLEMENTATION SPECIALIST ELECTROPHORESIS, PROTEIN, RANDOM, U Routine 07/19/2024 1:39 PM CLINICAL IMPLEMENTATION SPECIALIST GLUCOSE POCT, B Routine 07/19/2024 11:35 AM CLINICAL IMPLEMENTATION SPECIALIST GLUCOSE POCT, B Routine 07/19/2024 8:10 AM CLINICAL IMPLEMENTATION SPECIALIST CT THORACIC AND LUMBAR SPINE BY RECONSTRUCTION RAD - Emergent (Fastest; for the most critically ill patients) 07/19/2024 2:56 AM CLINICAL IMPLEMENTATION SPECIALIST CT ABDOMEN PELVIS WITH IV CONTRAST RAD - Emergent (Fastest; for the most critically ill patients) 07/19/2024 2:56 AM CLINICAL IMPLEMENTATION SPECIALIST CT CERVICAL SPINE WITHOUT IV CONTRAST RAD - Emergent (Fastest; for the most critically ill patients) 07/19/2024 2:56 AM CLINICAL IMPLEMENTATION SPECIALIST CT CHEST WITH IV CONTRAST RAD - Emergent (Fastest; for the most critically ill patients) 07/19/2024 2:56 AM CLINICAL IMPLEMENTATION SPECIALIST CT HEAD WITHOUT IV CONTRAST RAD - Emergent (Fastest; for the most critically ill patients) 07/19/2024 2:56 AM CLINICAL IMPLEMENTATION SPECIALIST ETHANOL, S STAT 07/19/2024 12:32 AM CLINICAL IMPLEMENTATION SPECIALIST HEPATIC FUNCTION PANEL, S STAT 07/19/2024 12:32 AM CLINICAL IMPLEMENTATION SPECIALIST CBC WITH DIFFERENTIAL, B STAT 07/19/2024 12:32 AM CLINICAL IMPLEMENTATION SPECIALIST BASIC METABOLIC PANEL, S/P STAT 07/19/2024 12:32 AM CLINICAL IMPLEMENTATION SPECIALIST PHOSPHORUS (INORGANIC), S Routine 07/19/2024 12:25 AM CLINICAL IMPLEMENTATION SPECIALIST MAGNESIUM, S Routine 07/19/2024 12:25 AM CLINICAL IMPLEMENTATION SPECIALIST HEMOGLOBIN A1C, B Routine 07/19/2024 12:25 AM CLINICAL IMPLEMENTATION SPECIALIST ECG STAT 07/19/2024 12:02 AM CLINICAL IMPLEMENTATION SPECIALIST documented in this encounter Results * (ABNORMAL) Glucose, POCT (07/20/2024 11:56 AM CLINICAL IMPLEMENTATION SPECIALIST) Glucose, POCT, B 220(H) 70 - 140 mg/dL 07/20/2024 12:00 PM CLINICAL IMPLEMENTATION SPECIALIST PCLX Site Capillary 07/20/2024 12:00 PM CLINICAL IMPLEMENTATION SPECIALIST PCLX Last Intake 2-3 hours 07/20/2024 12:00 PM CLINICAL IMPLEMENTATION SPECIALIST PCLX Blood 07/20/2024 11:5 6 AM CLINICAL IMPLEMENTATION SPECIALIST 07/20/2024 12:00 PM CLINICAL IMPLEMENTATION SPECIALIST Unknown Provider LAB POCT ORDERABLES-MANUAL Lela l Result Performing Organization Address City/[facility]/ZIP Co de Phone Number POC [facility] [address] [place] [address], [facility] PCLX [facility] POC [address] [place] [address] * Phosphorus Inorganic (07/20/2024 8:19 AM CLINICAL IMPLEMENTATION SPECIALIST) Phosphorus (Inorganic), S 2.6 2.5 - 4.5 mg/dL 07/20/2024 9:24 AM CLINICAL IMPLEMENTATION SPECIALIST DTL Blood (Blood, Venous) 07/20/2024 8:19 AM CLINICAL IMPLEMENTATION SPECIALIST 07/20/2024 9:07 AM CLINICAL IMPLEMENTATION SPECIALIST Viviane Jeffers APRN, C.N.P., D.N.P. LAB BLOOD ADD-ON Final Result Performing Organization Address [facility] Co de Phone Number [facility] [address] [place] [address], [facility] DTL [facility] [address] [place] [address] * Magnesium (07/20/2024 8:19 AM CLINICAL IMPLEMENTATION SPECIALIST) Magnesium, S 2.2 1.7 - 2.3 mg/dL 07/20/2024 9:24 AM CLINICAL IMPLEMENTATION SPECIALIST DTL Blood (Blood, Venous) 07/20/2024 8:19 AM CLINICAL IMPLEMENTATION SPECIALIST 07/20/2024 9:07 AM CLINICAL IMPLEMENTATION SPECIALIST Viviane Jeffers APRN, C.N.P., D.N.P. LAB BLOOD ADD-ON Final Result Performing Organization Address City/[facility]/ZIP Co de Phone Number [facility] [address] [place] [address], [facility] DTL [facility] [address] [place] [address] * (ABNORMAL) CBC with Differential, Blood (07/20/2024 8:19 AM CLINICAL IMPLEMENTATION SPECIALIST) Hemoglobin 11.3(L) 13.2 - 16.6 g/dL 07/20/2024 9:04 AM CLINICAL IMPLEMENTATION SPECIALIST DTL Hematocrit 33.7(L) 38.3 - 48.6 % 07/20/2024 9:04 AM CLINICAL IMPLEMENTATION SPECIALIST DTL Erythrocytes 3.53(L) 4.35 - 5.65 x10(12)/L 07/20/2024 9:04 AM CLINICAL IMPLEMENTATION SPECIALIST DTL MCV 95.5 78.2 - 97.9 fL 07/20/2024 9:04 AM CLINICAL IMPLEMENTATION SPECIALIST DTL RBC Distrib Width 15.8(H) 11.8 - 14.5 % 07/20/2024 9:04 AM CLINICAL IMPLEMENTATION SPECIALIST DTL Platelet Count 120(L) 135 - 317 x10(9)/L 07/20/2024 9:04 AM CLINICAL IMPLEMENTATION SPECIALIST DTL Leukocytes 3.8 3.4 - 9.6 x10(9)/L 07/20/2024 9:04 AM CLINICAL IMPLEMENTATION SPECIALIST DTL Neutrophils 2.33 1.56 - 6.45 x10(9)/L 07/20/2024 9:04 AM CLINICAL IMPLEMENTATION SPECIALIST DHPM Lymphocytes 0.85(L) 0.95 - 3.07 x10(9)/L 07/20/2024 9:04 AM CLINICAL IMPLEMENTATION SPECIALIST DTL Monocytes 0.49 0.26 - 0.81 x10(9)/L 07/20/2024 9:04 AM CLINICAL IMPLEMENTATION SPECIALIST DTL Eosinophils 0.03 0.03 - 0.48 x10(9)/L 07/20/2024 9:04 AM CLINICAL IMPLEMENTATION SPECIALIST DTL Basophils 0.05 0.01 - 0.08 x10(9)/L 07/20/2024 9:04 AM CLINICAL IMPLEMENTATION SPECIALIST DTL Blood (Blood, Venous) 07/20/2024 8:19 AM CLINICAL IMPLEMENTATION SPECIALIST 07/20/2024 8:52 AM CLINICAL IMPLEMENTATION SPECIALIST Viviane Jeffers APRN, C.N.P., D.N.P. LAB BLOOD ADD-ON Final Result [facility] [address] [place] [address], [facility] DTL [facility] [address] [place] [address] [facility] [address] [place] [address] * (ABNORMAL) Basic Metabolic Panel (07/20/2024 8:19 AM CLINICAL IMPLEMENTATION SPECIALIST) [facility] Potassium, S 4.3 3.6 - 5.2 mmol/L 07/20/2024 9:24 AM CLINICAL IMPLEMENTATION SPECIALIST DTL Sodium, S 138 135 - 145 mmol/L 07/20/2024 9:24 AM CLINICAL IMPLEMENTATION SPECIALIST DTL Chloride, S 104 98 - 107 mmol/L 07/20/2024 9:24 AM CLINICAL IMPLEMENTATION SPECIALIST DTL Bicarbonate, S 23 22 - 29 mmol/L 07/20/2024 9:24 AM CLINICAL IMPLEMENTATION SPECIALIST DTL Anion Gap 11 7 - 15 07/20/2024 9:24 AM CLINICAL IMPLEMENTATION SPECIALIST DTL BUN (Blood Urea Nitrogen), S 25(H) 8 - 24 mg/dL 07/20/2024 9:24 AM CLINICAL IMPLEMENTATION SPECIALIST DTL Creatinine 1.67(H) 0.74 - 1.35 mg/dL 07/20/2024 9:24 AM CLINICAL IMPLEMENTATION SPECIALIST DTL Estimated GFR (eGFR) 42(L) >=60 mL/min/BSA 07/20/2024 9:24 AM CLINICAL IMPLEMENTATION SPECIALIST DTL Comment: Estimated GFR calculated using the 2020 CKD_EPI creatinine equation. Calcium, Total, S 8.7(L) 8.8 - 10.2 mg/dL 07/20/2024 9:24 AM CLINICAL IMPLEMENTATION SPECIALIST DTL Glucose, S 149(H) 70 - 140 mg/dL 07/20/2024 9:24 AM CLINICAL IMPLEMENTATION SPECIALIST DTL Blood (Blood, Venous) 07/20/2024 8:19 AM CLINICAL IMPLEMENTATION SPECIALIST 07/20/2024 9:07 AM CLINICAL IMPLEMENTATION SPECIALIST Barbie Howard APRNNGarrick., D.N.P. LAB BLOOD ADD-ON Final Result [facility] [address] [place] [address], [facility] DTL [facility] [address] [place] [address] * (ABNORMAL) Glucose, POCT (07/20/2024 8:00 AM CLINICAL IMPLEMENTATION SPECIALIST) Glucose, POCT, B 174(H) 70 - 140 mg/dL 07/20/2024 8:02 AM CLINICAL IMPLEMENTATION SPECIALIST PCLX Site Capillary 07/20/2024 8:02 AM CLINICAL IMPLEMENTATION SPECIALIST PCLX Last Intake > 4 hours 07/20/2024 8:02 AM CLINICAL IMPLEMENTATION SPECIALIST PCLX Blood 07/20/2024 8:00 AM CLINICAL IMPLEMENTATION SPECIALIST 07/20/2024 8:03 AM CLINICAL IMPLEMENTATION SPECIALIST us Unknown Provider LAB POCT ORDERABLES-MANUAL Lela l Result POC [facility] [address] [place] [address], [facility] PCLX [facility] POC [address] [facility] [place] [address] * DX Chest Portable 1 View (07/20/2024 7:44 AM CLINICAL IMPLEMENTATION SPECIALIST) Anatomical Region Laterality Modality Chest, Thoracic RST LOS, Tho racic ARZ LOS, Thoracic FLA LOS N/A Digital Radiography Impressions 07/20/2024 7:55 AM CLINICAL IMPLEMENTATION SPECIALIST Expansile lesion with minimally displaced fracture in the lateral right sixth rib. Slight atelectasis left base. Chest otherwise negative. Narrative 07/20/2024 7:55 AM CLINICAL IMPLEMENTATION SPECIALIST EXAM: DX CHEST PORTABLE 1 VIEW Procedure Note Ronaldo Martinez M.D. - 07/20/2024 EXAM: DX CHEST PORTABLE 1 VIEW IMPRESSION: Expansile lesion with minimally displaced fracture in the lateral rightsixth rib. Slight atelectasis left base. Chest otherwise negative. us Viviane Jeffers APRN, C.N.P., D.N.P. IMG DIAGNO STIC IMAGING PROCEDURES Final Result * (ABNORMAL) Glucose, POCT (07/19/2024 8:26 PM CLINICAL IMPLEMENTATION SPECIALIST) Glucose, POCT, B 262(H) 70 - 140 mg/dL 07/19/2024 8:28 PM CLINICAL IMPLEMENTATION SPECIALIST PCLX Site Capillary 07/19/2024 8:28 PM CLINICAL IMPLEMENTATION SPECIALIST PCLX Last Intake 3-4 hours 07/19/2024 8:28 PM CLINICAL IMPLEMENTATION SPECIALIST PCLX Blood 07/19/2024 8:26 PM CLINICAL IMPLEMENTATION SPECIALIST 07/19/2024 8:29 PM CLINICAL IMPLEMENTATION SPECIALIST us Unknown Provider LAB POCT ORDERABLES-MANUAL Lela l Result Performing Organization Address [facility]/ZIP Co de Phone Number POC [facility] SERVICES [address] [place] [address], [facility] PCLX [facility] POC [address] [place] [address] * (ABNORMAL) Glucose, POCT (07/19/2024 5:29 PM CLINICAL IMPLEMENTATION SPECIALIST) Glucose, POCT, B 260(H) 70 - 140 mg/dL 07/19/2024 5:32 PM CLINICAL IMPLEMENTATION SPECIALIST PCLX Site Capillary 07/19/2024 5:32 PM CLINICAL IMPLEMENTATION SPECIALIST PCLX Last Intake 2-3 hours 07/19/2024 5:32 PM CLINICAL IMPLEMENTATION SPECIALIST PCLX Blood 07/19/2024 5:29 PM CLINICAL IMPLEMENTATION SPECIALIST 07/19/2024 5:32 PM CLINICAL IMPLEMENTATION SPECIALIST us Unknown Provider LAB POCT ORDERABLES-MANUAL Lela l Result Performing Organization Address [facility] Co de Phone Number POC [facility] SERVICES [address] [place] [address], [facility] PCLX [facility] POC [address] [place] [address] * DX Femur Left 2 Views (07/19/2024 2:33 PM CLINICAL IMPLEMENTATION SPECIALIST) Anatomical Region Laterality Modality Lower Extremity, Femur, Musc uloskeletal RST LOS, Musculoskeletal ARZ LOS, Muskuloskeletal FLA LOS Left Digit al Radiography Impressions 07/19/2024 3:00 PM CLINICAL IMPLEMENTATION SPECIALIST Diffuse demineralization and degenerative changes. No significant joint effusion. No definite acute displaced fracture or traumatic misalignment. Narrative 07/19/2024 3:00 PM CLINICAL IMPLEMENTATION SPECIALIST EXAM: DX FEMUR LEFT 2 VIEWS Procedure Note Tre Rodriguez D.O. - 07/19/2024 EXAM: DX FEMUR LEFT 2 VIEWS IMPRESSION: Diffuse demineralization and degenerative changes. No significant jointeffusion. No definite acute displaced fracture or traumaticmisalignment. Viviane Jeffers APRN, C.N.P., D.N.P. [facility] DIAGNO STIC IMAGING PROCEDURES Final Result * DX Pelvis 1-2 Views (07/19/2024 2:33 PM CLINICAL IMPLEMENTATION SPECIALIST) Anatomical Region Laterality Modality Pelvis, Musculoskeletal RST LOS, Musculoskeletal ARZ LOS, Muskuloskeletal FLA LOS N/A Digital Radiography Impressions 07/19/2024 2:48 PM CLINICAL IMPLEMENTATION SPECIALIST Diffuse demineralization. No definite acute displaced fracture or traumatic misalignment. Excreted contrast in the bladder. Left iliac lucent lesion better characterized on same day CT. Narrative 07/19/2024 2:48 PM CLINICAL IMPLEMENTATION SPECIALIST EXAM: DX PELVIS 1-2 VIEWS Procedure Note Tre Rodriguez D.O. - 07/19/2024 EXAM: DX PELVIS 1-2 VIEWS IMPRESSION: Diffuse demineralization. No definite acute displaced fracture ortraumatic misalignment. Excreted contrast in the bladder. Left iliaclucent lesion better characterized on same day CT. Viviane Jeffers APRN, C.N.P., D.N.P. [facility] IMAGING PROCEDURES Final Result * DX Chest AP or PA and Lateral 2 Views (07/19/2024 2:33 PM CLINICAL IMPLEMENTATION SPECIALIST) Anatomical Region Laterality Modality Chest, Thoracic RST LOS, Tho racic ARZ LOS, Thoracic FLA LOS N/A Digital Radiography Impressions 07/19/2024 2:47 PM CLINICAL IMPLEMENTATION SPECIALIST No focal consolidation. No large pleural effusion or discernible pneumothorax. Stable cardiac silhouette size. No rib fractures better characterized on same day CT chest. Narrative 07/19/2024 2:47 PM CLINICAL IMPLEMENTATION SPECIALIST EXAM: DX CHEST AP OR PA [...] Electrophoresis, Protein, Random, Urine (07/19/2024 1:39 PM CLINICAL IMPLEMENTATION SPECIALIST) Protein, Total, Random, U 4 mg/dL 07/19/2024 3:58 PM CLINICAL IMPLEMENTATION SPECIALIST DTL Creatinine, Random, U 39 16 - 326 mg/dL 07/19/2024 3:58 PM CLINICAL IMPLEMENTATION SPECIALIST DTL Protein/Creati nine Ratio 0.10 <0.18 mg/mg 07/19/2024 3:58 PM CLINICAL IMPLEMENTATION SPECIALIST DTL Albumin, mg/dL 0.8 mg/dL 07/23/2024 8:15 AM CLINICAL IMPLEMENTATION SPECIALIST SDSC Alpha-1 globulin, mg/dL 0.4 mg/dL 07/23/2024 8:15 AM CLINICAL IMPLEMENTATION SPECIALIST SDSC Alpha-2 globulin, mg/dL 1.0 mg/dL 07/23/2024 8:15 AM CLINICAL IMPLEMENTATION SPECIALIST SDSC Beta globulin, mg/dL 0.9 mg/dL 07/23/2024 8:15 AM CLINICAL IMPLEMENTATION SPECIALIST SDSC Gamma globulin, mg/dL 0.9 mg/dL 07/23/2024 8:15 AM CLINICAL IMPLEMENTATION SPECIALIST SDSC A/G Ratio 0.25 07/23/2024 8:15 AM CLINICAL IMPLEMENTATION SPECIALIST SDSC Impression All fractions present, no apparent M-spike. 07/23/2024 8:15 AM CLINICAL IMPLEMENTATION SPECIALIST SDSC Urine (Urine, Midstream) 07/19/2024 1:39 PM CLINICAL IMPLEMENTATION SPECIALIST 07/21/2024 6:18 AM CLINICAL IMPLEMENTATION SPECIALIST Viviane Jeffers APRN, C.N.P., D.N.P. LAB URINE ORDERABLES Final Result [facility] [address] [place] [address] DTL [facility] [address] [place] [address] [facility] [address] [facility] [address] [place] [address] * (ABNORMAL) Glucose, POCT (07/19/2024 11:35 AM CLINICAL IMPLEMENTATION SPECIALIST) Glucose, POCT, B 212(H) 70 - 140 mg/dL 07/19/2024 11:38 AM CLINICAL IMPLEMENTATION SPECIALIST PCLX Site Capillary 07/19/2024 11:38 AM CLINICAL IMPLEMENTATION SPECIALIST PCLX Blood 07/19/2024 11:3 5 AM CLINICAL IMPLEMENTATION SPECIALIST 07/19/2024 11:38 AM CLINICAL IMPLEMENTATION SPECIALIST us Unknown Provider LAB POCT ORDERABLES-MANUAL Lela l Result Performing Organization Address [facility] Co de Phone Number POC [facility] SERVICES [address] [place] [address], [facility] PCLX [facility] POC [address] [place] [address] * (ABNORMAL) Glucose, POCT (07/19/2024 8:10 AM CLINICAL IMPLEMENTATION SPECIALIST) Glucose, POCT, B 160(H) 70 - 140 mg/dL 07/19/2024 8:18 AM CLINICAL IMPLEMENTATION SPECIALIST PCLX Last Intake 3-4 hours 07/19/2024 8:18 AM CLINICAL IMPLEMENTATION SPECIALIST PCLX Blood 07/19/2024 8:10 AM CLINICAL IMPLEMENTATION SPECIALIST 07/19/2024 8:19 AM CLINICAL IMPLEMENTATION SPECIALIST us Unknown Provider LAB POCT ORDERABLES-MANUAL Lela l Result Performing Organization Address [facility] Co de Phone Number POC [facility] SERVICES [address] [place] [address], [facility] PCLX [facility] POC [address] [place] [address] * CT Thoracic and Lumbar Spine by Reconstruction (07/19/2024 2:56 AM CLINICAL IMPLEMENTATION SPECIALIST) Anatomical Region Laterality Modality Thoracic Spine, Neuroradiolo gy RST LOS, Neuroradiology ARZ LOS, Neuroradiology FLA LOS N/A Computed Tomography, Compute d Tomography Impressions 07/19/2024 8:12 AM CLINICAL IMPLEMENTATION SPECIALIST 1. Age-indeterminate compression fracture of T12 [...] will reported separately. Narrative 07/19/2024 8:12 AM CLINICAL IMPLEMENTATION SPECIALIST EXAM: CT THORACIC AND LUMBAR SPINE [...] will reported separately. us Winston Spivey M.D. [facility] CT PROCEDURES Final Result * CT Abdomen Pelvis with IV Contrast (07/19/2024 2:56 AM CLINICAL IMPLEMENTATION SPECIALIST) Anatomical Region Laterality Modality Abdomen, Pelvis, Abdominal R ST LOS, Abdominal ARZ LOS, Abdominal FLA LOS N/A Computed Tomograp hy, Computed Tomography 07/19/2024 2:48 AM CLINICAL IMPLEMENTATION SPECIALIST Impressions 07/19/2024 8:15 AM CLINICAL IMPLEMENTATION SPECIALIST 1. Acute appearing nondisplaced fracture involving [...] the thoracic spine. Narrative 07/19/2024 8:15 AM CLINICAL IMPLEMENTATION SPECIALIST EXAM: CT CHEST WITH IV CONTRAST, [...] in the thoracic spine. Winston Spivey M.D. [facility] CT PROCEDURES Final Result * CT Chest with IV Contrast (07/19/2024 2:56 AM CLINICAL IMPLEMENTATION SPECIALIST) Anatomical Region Laterality Modality Chest, Thoracic RST LOS, Tho racic ARZ LOS, Thoracic ARZ LOS, Thoracic FLA LOS N/A Computed Tomography, Compute d Tomography 07/19/2024 2:47 AM CLINICAL IMPLEMENTATION SPECIALIST Impressions 07/19/2024 8:15 AM CLINICAL IMPLEMENTATION SPECIALIST 1. Acute appearing nondisplaced fracture involving [...] the thoracic spine. Narrative 07/19/2024 8:15 AM CLINICAL IMPLEMENTATION SPECIALIST EXAM: CT CHEST WITH IV CONTRAST, [...] Spine without IV Contrast (07/19/2024 2:56 AM CLINICAL IMPLEMENTATION SPECIALIST) Anatomical Region Laterality Modality Cervical Spine, Neuroradiolo gy RST LOS, Neuroradiology ARZ LOS, Neuroradiology FLA LOS N/A Computed Tomography, Compute d Tomography 07/19/2024 2:33 AM CLINICAL IMPLEMENTATION SPECIALIST Impressions 07/19/2024 8:03 AM CLINICAL IMPLEMENTATION SPECIALIST 1. Technically limited exam due to motion artifact and osteopenia. 2. No definite CT evidence of acute fracture or traumatic malalignment in the cervical spine. Rotatory and posterior subluxation of C1 on C2 is favored to be positional but should be correlated clinically. 3. Overall moderate cervical spondylosis, as described. Narrative 07/19/2024 8:03 AM CLINICAL IMPLEMENTATION SPECIALIST EXAM: CT CERVICAL SPINE WITHOUT IV [...] Head without IV Contrast (07/19/2024 2:56 AM CLINICAL IMPLEMENTATION SPECIALIST) Anatomical Region Laterality Modality Head, Neuroradiology RST LOS , Neuroradiology ARZ LOS, Neuroradiology FLA LOS N/A Computed Tomography, Compute d Tomography 07/19/2024 2:33 AM CLINICAL IMPLEMENTATION SPECIALIST Impressions 07/19/2024 7:57 AM CLINICAL IMPLEMENTATION SPECIALIST 1. No acute traumatic intracranial findings. 2. Scattered small calvarial lucencies, possibly related to the patient's multiple myeloma (currently in remission). Narrative 07/19/2024 7:57 AM CLINICAL IMPLEMENTATION SPECIALIST EXAM: CT HEAD WITHOUT IV CONTRAST [...] cells are well aerated. Dental extractions and uatsdin hardware. Scattered small lucencies throughout the calvarium [...] air cells are well aerated.Dental extractions and uatsdin hardware. Scattered small lucencies throughout the calvarium that could reflect achronic manifestation of the patient's known multiple myeloma. IMPRESSION: 1. No acute traumatic intracranial findings. 2. Scattered small calvarial lucencies, possibly related to the patient'smultiple myeloma (currently in remission). us Winston Spivey M.D. IMG CT PROCEDURES Final Result * (ABNORMAL) Ethanol Level, Serum (07/19/2024 12:32 AM CLINICAL IMPLEMENTATION SPECIALIST) Ethanol, S 175(H) <10 mg/dL 07/19/2024 1:1 4 AM CLINICAL IMPLEMENTATION SPECIALIST DTL Blood (Blood, Venous) 07/19/2024 12:32 AM CLINICAL IMPLEMENTATION SPECIALIST 07/19/2024 12:55 AM CLINICAL IMPLEMENTATION SPECIALIST us Winston Spivey M.D. LAB BLOOD NON ADD- ON Final Result [facility] [address] [place] [address], [facility] DTDepartment of Veterans Affairs [facility] [address] [place] [address] * (ABNORMAL) Hepatic Function Panel (07/19/2024 12:32 AM CLINICAL IMPLEMENTATION SPECIALIST) Bilirubin, Total, S 0.4 0.0 - 1.2 mg/dL 07/19/2024 1:14 AM CLINICAL IMPLEMENTATION SPECIALIST DTL Bilirubin, Direct, S <0.2 0.0 - 0.3 mg/dL 07/19/2024 1:14 AM CLINICAL IMPLEMENTATION SPECIALIST DTL Aspartate Aminotransferase (AST), S 22 8 - 48 U/L 07/19/2024 1:14 AM CLINICAL IMPLEMENTATION SPECIALIST DTL Alanine Aminotransferase (ALT), S 21 7 - 55 U/L 07/19/2024 1:14 AM CLINICAL IMPLEMENTATION SPECIALIST DTL Alkaline Phosphatase, S 114 40 - 129 U/L 07/19/2024 1:14 AM CLINICAL IMPLEMENTATION SPECIALIST DTL Albumin, S 3.7 3.5 - 5.0 g/dL 07/19/2024 1:14 AM CLINICAL IMPLEMENTATION SPECIALIST DTL Protein, Total, S 5.4(L) 6.3 - 7.9 g/dL 07/19/2024 1:14 AM CLINICAL IMPLEMENTATION SPECIALIST DTL Blood (Blood, Venous) 07/19/2024 12:32 AM CLINICAL IMPLEMENTATION SPECIALIST 07/19/2024 12:55 AM CLINICAL IMPLEMENTATION SPECIALIST us Winston Spivey M.D. LAB BLOOD ADD-ON F inal Result [address] [address], [facility] [place] [address] * (ABNORMAL) Basic Metabolic Panel (07/19/2024 12:32 AM CLINICAL IMPLEMENTATION SPECIALIST) Potassium, P 3.6 3.6 - 5.2 mmol/L 07/19/2024 1:10 AM CLINICAL IMPLEMENTATION SPECIALIST DTL Sodium, P 134(L) 135 - 145 mmol/L 07/19/2024 1:10 AM CLINICAL IMPLEMENTATION SPECIALIST DTL Chloride, P 100 98 - 107 mmol/L 07/19/2024 1:10 AM CLINICAL IMPLEMENTATION SPECIALIST DTL Bicarbonate, P 16(L) 22 - 29 mmol/L 07/19/2024 1:10 AM CLINICAL IMPLEMENTATION SPECIALIST DTL Anion Gap, P 18(H) 7 - 15 07/19/2024 1:10 AM CLINICAL IMPLEMENTATION SPECIALIST DTL BUN (Blood Urea Nitrogen), P 25(H) 8 - 24 mg/dL 07/19/2024 1:10 AM CLINICAL IMPLEMENTATION SPECIALIST DTL Creatinine 1.65(H) 0.74 - 1.35 mg/dL 07/19/2024 1:10 AM CLINICAL IMPLEMENTATION SPECIALIST DTL Estimated GFR (eGFR) 43(L) >=60 mL/min/BSA 07/19/2024 1:10 AM CLINICAL IMPLEMENTATION SPECIALIST DTL Comment: Estimated GFR calculated using the 2020 CKD_EPI creatinine equation. Calcium, Total, P 8.4(L) 8.8 - 10.2 mg/dL 07/19/2024 1:10 AM CLINICAL IMPLEMENTATION SPECIALIST DTL Glucose, P 140 70 - 140 mg/dL 07/19/2024 1:10 AM CLINICAL IMPLEMENTATION SPECIALIST DTL Blood (Blood, Venous) 07/19/2024 12:32 AM CLINICAL IMPLEMENTATION SPECIALIST 07/19/2024 12:43 AM CLINICAL IMPLEMENTATION SPECIALIST us Winston Spivey M.D. LAB BLOOD ADD-ON F inal Result [facility] [address] [place] [address], [facility] DTDepartment of Veterans Affairs [facility] [address] [place] [address] * (ABNORMAL) CBC with Differential, Blood (07/19/2024 12:32 AM CLINICAL IMPLEMENTATION SPECIALIST) Hemoglobin 12.2(L) 13.2 - 16.6 g/dL 07/19/2024 12:39 AM CLINICAL IMPLEMENTATION SPECIALIST STMA Hematocrit 36.0(L) 38.3 - 48.6 % 07/19/2024 12:39 AM CLINICAL IMPLEMENTATION SPECIALIST STMA Erythrocytes 3.81(L) 4.35 - 5.65 x10(12)/L 07/19/2024 12:39 AM CLINICAL IMPLEMENTATION SPECIALIST STMA MCV 94.5 78.2 - 97.9 fL 07/19/2024 12:39 AM CLINICAL IMPLEMENTATION SPECIALIST STMA RBC Distrib Width 15.3(H) 11.8 - 14.5 % 07/19/2024 12:39 AM CLINICAL IMPLEMENTATION SPECIALIST STMA Platelet Count 118(L) 135 - 317 x10(9)/L 07/19/2024 12:39 AM CLINICAL IMPLEMENTATION SPECIALIST STMA Leukocytes 4.0 3.4 - 9.6 x10(9)/L 07/19/2024 12:39 AM CLINICAL IMPLEMENTATION SPECIALIST STMA Neutrophils 2.07 1.56 - 6.45 x10(9)/L 07/19/2024 12:39 AM CLINICAL IMPLEMENTATION SPECIALIST DHPM Lymphocytes 1.19 0.95 - 3.07 x10(9)/L 07/19/2024 12:39 AM CLINICAL IMPLEMENTATION SPECIALIST STMA Monocytes 0.55 0.26 - 0.81 x10(9)/L 07/19/2024 12:39 AM CLINICAL IMPLEMENTATION SPECIALIST STMA Eosinophils 0.06 0.03 - 0.48 x10(9)/L 07/19/2024 12:39 AM CLINICAL IMPLEMENTATION SPECIALIST STMA Basophils 0.10(H) 0.01 - 0.08 x10(9)/L 07/19/2024 12:39 AM CLINICAL IMPLEMENTATION SPECIALIST STMA Blood (Blood, Venous) 07/19/2024 12:32 AM CLINICAL IMPLEMENTATION SPECIALIST 07/19/2024 12:36 AM CLINICAL IMPLEMENTATION SPECIALIST Winston Spivey M.D. LAB BLOOD ADD-ON F inal Result [facility] [address] STMA [facility] [address] [place] [address] DHPM [facility] [address] [place] [address] * Phosphorus Inorganic (07/19/2024 12:25 AM CLINICAL IMPLEMENTATION SPECIALIST) Phosphorus (Inorganic), S 3.6 2.5 - 4.5 mg/dL 07/19/2024 8:48 AM CLINICAL IMPLEMENTATION SPECIALIST DTL Blood 07/19/2024 12:2 5 AM CLINICAL IMPLEMENTATION SPECIALIST 07/19/2024 8:25 AM CLINICAL IMPLEMENTATION SPECIALIST Viviane Jeffers APRN, C.N.P., D.N.P. LAB BLOOD ADD-ON Final Result [facility] [address] DTL [facility] [address] [place] [address] * Magnesium (07/19/2024 12:25 AM CLINICAL IMPLEMENTATION SPECIALIST) Magnesium, S 2.0 1.7 - 2.3 mg/dL 07/19/2024 8:48 AM CLINICAL IMPLEMENTATION SPECIALIST DTL Blood (Blood, Venous) 07/19/2024 12:25 AM CLINICAL IMPLEMENTATION SPECIALIST 07/19/2024 8:25 AM CLINICAL IMPLEMENTATION SPECIALIST Barbie Howard APRNNLakeshiaP., D.N.P. LAB BLOOD ADD-ON Final Result Performing Organization Address [facility] de Phone Number [facility] [address] [place] [address] * (ABNORMAL) Hemoglobin A1c (07/19/2024 12:25 AM CLINICAL IMPLEMENTATION SPECIALIST) Hemoglobin A1c, B 7.6(H) 4.0 - 5.6 % 07/19/2024 11:00 AM CLINICAL IMPLEMENTATION SPECIALIST DT Comment: Hemoglobin A1c values greater than or equal to 6.5 percent are diagnostic for diabetes mellitus. Diagnosis should be confirmed by repeat testing. In diabetic patients, HbA1c goals should be discussed with healthcare provider. Blood (Blood, Venous) 07/19/2024 12:25 AM CLINICAL IMPLEMENTATION SPECIALIST 07/19/2024 8:52 AM CLINICAL IMPLEMENTATION SPECIALIST Daisha Barros M.D. LAB BLOOD ADD-O N Final Result Performing Organization Address [facility] Co de Phone Number [facility] [address] [place], [place] [id number] [place] [address] [address] [place] [address] * ECG 12 Lead (07/19/2024 12:02 AM CLINICAL IMPLEMENTATION SPECIALIST) Ventricular Rate ECG/Min 100 BPM MUSE MS Interval 228 ms MUSE QRSD Interval 112 ms MUSE QT Interval 364 ms MUSE QTC Interval 469 ms MUSE P [place] 36 degrees MUSE R [place] -54 degrees MUSE T Wave [place] 82 degrees MUSE 07/19/2024 12:0 2 AM CLINICAL IMPLEMENTATION SPECIALIST 07/19/2024 12:13 AM CLINICAL IMPLEMENTATION SPECIALIST Impressions MUSE - 07/19/2024 12:13 AM CLINICAL IMPLEMENTATION SPECIALIST Sinus rhythm with 1st degree A-V [...] 07/19/24 at 1130 Given 07/20/2024 7:51 AM CLINICAL IMPLEMENTATION SPECIALIST 1,000 mg Given 07/19/2024 8:29 PM CLINICAL IMPLEMENTATION SPECIALIST 1,000 mg Given 07/19/2024 11:57 AM CLINICAL IMPLEMENTATION SPECIALIST 1,000 mg ascorbic acid tablet 125 mg (Vitamin C) 125 mg, oral, Daily, First dose on 07/19/24 at 0900 Given 07/20/2024 7:51 AM CLINICAL IMPLEMENTATION SPECIALIST 125 mg Given 07/19/2024 8:40 AM CLINICAL IMPLEMENTATION SPECIALIST [address] tablet 81 mg 81 mg, oral, Daily, First dose on 07/19/24 at 0900, Swallow whole. Do NOT crush, chew, or split tablet. Given 07/20/2024 7:51 AM CLINICAL IMPLEMENTATION SPECIALIST 81 mg Given 07/19/2024 8:40 AM CLINICAL IMPLEMENTATION SPECIALIST 81 mg bisacodyL suppository 10 mg (Dulcolax) [...] 7. Close lid. Given 07/20/2024 7:52 AM CLINICAL IMPLEMENTATION SPECIALIST 1 puff Given 07/19/2024 8:39 AM CLINICAL IMPLEMENTATION SPECIALIST 1 puff heparin (porcine) injection 5,000 Units 5,000 Units, subcutaneous, Every 8 hours scheduled, First dose on 07/19/24 at 1400 Given 07/20/2024 6:02 AM CLINICAL IMPLEMENTATION SPECIALIST 5,000 Units Right Lower Abdomen Given 07/19/2024 9:17 PM CLINICAL IMPLEMENTATION SPECIALIST 5,000 Units R ight Upper Arm (Back) Given 07/19/2024 1:41 PM CLINICAL IMPLEMENTATION SPECIALIST 5,000 Units R ight Upper Arm (Back) [...] writing Insulin orders Given 07/20/2024 12:20 PM CLINICAL IMPLEMENTATION SPECIALIST 3 Units Right Upper Arm (Alexandrea k) Given 07/19/2024 6:13 PM CLINICAL IMPLEMENTATION SPECIALIST 4 Units Le ft Upper Arm (Back) Given 07/19/2024 11:59 AM CLINICAL IMPLEMENTATION SPECIALIST 2 Units L eft Lower Abdomen insulin aspart U-100 injection 0-7 Units (NovoLOG FlexPen) 0-7 Units, subcutaneous, Daily at bedtime, First dose on 07/19/24 at 2100, Insulin Scale: Modified Bedtime Correction Scale, 220-259: 3 units, 260-299: 4 units, 300-339: 5 units, 340-379: 6 units, 380-399: 7 units, Greater than 399: Call service writing insulin orders Given 07/19/2024 8:29 PM CLINICAL IMPLEMENTATION SPECIALIST 4 Units Right Upper Arm (Back) iohexoL 300 mg iodine/mL solution 1-200 mL (Omnipaque) 1-200 mL, intravenous, Once in imaging, contrast, Starting on 07/19/24 at 0220, For 1 dose, Imaging Protocol Orders, Dose per Radiant Medication Guidelines Given 07/19/2024 2:37 AM CLINICAL IMPLEMENTATION SPECIALIST 140 mL Lactated Ringer's 100 mL/hr, intravenous, Continuous, Starting on 07/19/24 at 0730, For 10 hours New Bag 07/19/2024 8:39 AM CLINICAL IMPLEMENTATION SPECIALIST 100 mL/hr 100 mL/hr lidocaine 5 % 1 patch (Lidoderm) 1 patch, transdermal, Administer over 12 Hours, Daily, First dose on 07/19/24 at 1115, Apply to chest for pain relief. Remove after 12 hours. Medication Applied 07/20/2024 7:51 AM CLINICAL IMPLEMENTATION SPECIALIST 1 patch Chest Medication Applied 07/19/2024 11:58 AM CLINICAL IMPLEMENTATION SPECIALIST 1 patch Chest naloxone injection 0.2 mg (Narcan) 0.2 mg, intravenous, As needed, respiratory depression, Starting on 07/19/24 at 1102, For RASS Score -4 or less, respiratory rate of less than 8 breaths/min. Notify provider/service and rapid response team (if available at institution). [id number]-[id number]-[id number] 3.5 mg-400 unit-5,000 unit/gram ointment 1 Application (Neosporin) 1 Application, topical, 2 times daily, First dose on 07/19/24 at 1115, Apply to nasal and upper extremity abrasions Given 07/20/2024 7:52 AM CLINICAL IMPLEMENTATION SPECIALIST 1 Application Given 07/19/2024 9:15 PM CLINICAL IMPLEMENTATION SPECIALIST 1 Application Given 07/19/2024 11:57 AM CLINICAL IMPLEMENTATION SPECIALIST 1 Application oxyCODONE IR tablet 2.5 mg [...] For 5 days Given 07/19/2024 8:40 AM CLINICAL IMPLEMENTATION SPECIALIST 40 mg sennosides tablet 8.6 mg (Senokot) 8.6 mg, oral, 2 times daily PRN, constipation, Starting on 07/19/24 at 1102 sodium chloride (PF) 0.9 % injection 1-100 mL 1-100 mL, intravenous, Once, On 07/19/24 at 0221, For 1 dose, Imaging Protocol Orders, Dose per Radiant Medication Guidelines Given 07/19/2024 2:38 AM CLINICAL IMPLEMENTATION SPECIALIST 40 mL sodium chloride 0.9 % injection 3 mL 3 mL, intravenous, Every 12 hours scheduled, First dose on 07/19/24 at 0900, Peripheral Intravenous Catheter and Rapid Infusion Catheter, when no infusion to maintain patency Given 07/20/2024 7: 52 AM CLINICAL IMPLEMENTATION SPECIALIST 3 mL Given 07/19/2024 9:18 PM CLINICAL IMPLEMENTATION SPECIALIST 3 mL Given 07/19/2024 8:41 AM CLINICAL IMPLEMENTATION SPECIALIST 3 mL sodium chloride 0.9 % injection 3 mL 3 mL, intravenous, Every 12 hours scheduled, First dose on 07/19/24 at 0900, Peripheral Intravenous Catheter and Rapid Infusion Catheter, when no infusion to maintain patency Given 07/20/2024 7: 52 AM CLINICAL IMPLEMENTATION SPECIALIST 3 mL Given 07/19/2024 9:15 PM CLINICAL IMPLEMENTATION SPECIALIST 3 mL Given 07/19/2024 8:40 AM CLINICAL IMPLEMENTATION SPECIALIST 3 mL umeclidinium 62.5 mcg/actuation inhaler 1 [...] 7. Close lid. Given 07/20/2024 7:51 AM CLINICAL IMPLEMENTATION SPECIALIST 1 puff Given 07/19/2024 8:39 AM CLINICAL IMPLEMENTATION SPECIALIST 1 puff documented in this encounter Active and Recently Administered Medications Times are shown in CLINICAL IMPLEMENTATION SPECIALIST. 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
[2024-07-30] MEDS: LORazepam 2 MG/ML inj 0.25 MG IVP (07:14)
--- NOTE | 2024-07-30 07:20 | ED_ITS ---
HPI - General Adult General Chief complaint: Shortness of Breath/Dyspnea Stated complaint: Respiratory distress Time Seen by Provider: 07/30/24 06:57 Source: patient and EMS Mode of arrival: EMS Limitations: physical limitation History of Present Illness HPI narrative: 78-year-old male with prior history of COPD presents to the emergency department with sudden onset respiratory distress this evening. No gradual symptoms. Reports that he got up around midnight to go to the bathroom and felt more short of breath and weak. Had difficulty getting back to his bed so just laid down in the living room and stay there. Symptoms did not improve and he continued to feel more short of breath, prompting called the EMS at about 530. [place] way out in [place] so it took about an hour for EMS to arrive assess and arrive at our facility. Patient reports no recent fever. Does have a mucousy cough. No trauma or injury. Does have an old rib fracture of the right upper side ribs since around gi. Reports that he has tenderness over that area but that is stable and unchanged from him. He has been evaluated for COPD and pneumonia within the last 6 weeks and was prescribed a course of antibiotics. R eports that things did not fully improve in the interim. No prior history of DVT or PE. He has a history of COPD but also multiple myeloma and is on chemotherapy. EMS reports that his respiratory rate was in the high 40s upon their arrival. O2 sats were in the high 80s. They applied 15 L of non- rebreather but states that even though his oxygen levels improved, he did not symptomaticly improve with this. They transitioned him to BiPAP and continued to not notice improvement in clinical symptoms though his oxygen levels did improve. ED notes from last month reviewed. Was able to be discharged home. Did not have significant hypoxia at those times. No recent falls, not anticoagulated. Denies cardiac symptoms. Past medical history most notable for COPD, multiple myeloma. Lives indep endently and alone. ROS is notable for the respiratory symptoms only, otherwise denies times 12 systems with the exception of some generalized fatigue. Related Data Home Medications ?Medication ?Instructions ?Recorded ?Confirmed ascorbic acid (vitamin C) 500 mg 500 mg PO DAILY 07/20/23 06/17/24 capsule aspirin 81 mg tablet,delayed 81 mg PO QDAY 07/20/23 06/17/24 release budesonide-formoterol HFA 160 2 puff inhalation BID 07/20/23 06/17/24 mcg-4.5 mcg/actuation aerosol inhaler cholecalciferol (vitamin D3) 25 25 mcg PO QDAY 07/20/23 06/17/24 mcg (1,000 unit) capsule cyclobenzaprine 10 mg tablet 10 mg PO TID 07/20/23 06/17/24 dexamethasone 4 mg tablet 4 mg PO QDAY 07/20/23 06/17/24 diclofenac sodium 1 % topical gel 4 g topical QID 07/20/23 06/17/24 (Aleve (diclofenac)) lenalidomide 10 mg capsule 10 mg PO QDAY 07/20/23 06/17/24 loratadine 10 mg tablet (Allergy 10 mg PO QDAY 07/20/23 06/17/24 Relief (loratadine)) metformin 1,000 mg tablet 1,000 mg PO BID 07/20/23 06/17/24 omega 1-ist-phe-fish oil 1,000 mg 1 cap PO QDAY 07/20/23 06/17/24 (120 mg-180 mg) capsule (Fish Oil) prochlorperazine maleate 10 mg 10 mg PO Q6H PRN 07/20/23 06/17/24 tablet tiotropium bromide 18 mcg capsule 1 cap inhalation QDAY 07/20/23 06/17/24 with inhalation device Previous Rx's ?Medication ?Instructions ?Recorded albuterol sulfate 90 mcg/actuation 2 inh inhalation Q4H PRN shortness 08/11/23 aerosol inhaler of breath or wheezing #8.5 grams prednisone 20 mg tablet 40 mg (2 x 20 mg) PO DAILY 5 days 08/11/23 #10 tabs ipratropium 0.5 mg-albuterol 3 mg 3 ml inhalation QID PRN #90 mL 06/08/24 (2.5 mg base)/3 mL nebulization soln prednisone 20 mg tablet 20 mg PO DIRECTED 9 days #18 06/08/24 tabs Allergies Allergy/AdvReac Type Severity Reaction Status Date / Time No Known Drug Allergies Allergy Verified 06/17/24 13:49 [facility] Medical History (Updated 07/30/24 @ 08:24 by Background Leon) Productive cough ?R05.8 - Other specified cough (ICD-10) Family History Son Myocardial infarction Social History Smoking Status: Never smoker Do you use any of these nicotine containing products: None How often do you have a drink containing alcohol: never How often do you have six or more drinks on one occasion: Never AUDIT-C Alcohol total score: 0 Non-prescribed substance use: denies use service: No Exam Const: Vital Signs, click to edit/add: Vital Signs - 24 hr 07/30/24 06:46 07/30/24 07:24 07/30/24 07:30 Temperature 98.3 F Pulse Rate 107 H 103 H Pulse Rate [Right Pulse Oximeter] 100 Respiratory Rate 37 H Blood Pressure Blood Pressure [Le ft Upper Arm] 161/78 H Pulse Oximetry 100 96 100 Oxygen Delivery Me thod Room Air 07/30/24 07:32 07/30/24 07:45 07/30/24 08:00 Temperature Pulse Rate 106 H 104 H 104 H Pulse Rate [Right Pulse Oximeter] Respiratory Rate Blood Pressure 134/69 Blood Pressure [Le ft Upper Arm] Pulse Oximetry 98 100 95 Oxygen Delivery Me thod 07/30/24 08:02 Temperature Pulse Rate 104 H Pulse Rate [Right Pulse Oximeter] Respiratory Rate Blood Pressure 134/117 H Blood Pressure [Le ft Upper Arm] Pulse Oximetry 94 Oxygen Delivery Me thod Common normals: alert Other: Moderate respiratory distress, can only speak a couple word sentences. Oxygen sats are normal but still quite tachypneic. HENMT: Common normals: normocephalic, moist oral mucous membranes and oropharynx normal Head and scalp: normocephalic Eye: Common normals: conjunctivae normal General eye: normal appearance of both eyes Conjunctiva: conjunctiva(e) normal Neck & C-Spine: Common normals: full ROM and no lymphadenopathy Chest: Other: Belly breathing, increased respiratory effort. No bruising or deformity to the chest Resp: Other: Very poor air movement. Tight, squeaky end-expiratory wheeze only. No crackles. Cardio: Common normals: regular rate, regular rhythm, S1 normal heart sound, S2 normal heart sound and no murmurs Rate: regular rate Rhythm: regular rhythm Heart sounds: S1 normal and S2 normal GI: Common normals: Normal to inspection, nondistended, normoactive bowel sounds present, soft to palpation, non-tender and no hepatosplenomegaly Palpation: soft and no hepatosplenomegaly Other: Difficult abdominal exam due to respiratory distress but no obvious mass or tenderness. Extremity: Common normals: normal capillary refill and no pedal edema Neuro: Sensorium/orientation: alert Psych: Appearance: grossly normal Activity/motor behavior: appropriate eye contact Insight: insight good Judgement: judgment good Skin: Common normals: no rashes or lesions noted General skin exam: no rashes or lesions noted Course Course ED Course: 78-year-old male presenting in significant respiratory distress with reported hypoxia at home, tachypnea. Very poor air movement suggestive of COPD, asthma exacerbation. Immunocompromised due to chemotherapy and multiple myeloma, high risk for pneumonia. Recommend swabs for COVID, influenza RSV. Start DuoNeb, transitioned to BiPAP. 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 Will require hospitalization. May require intubation and transfer. Monitor closely. Differential diagnosis including pulmonary embolism, acute coronary syndrome, acute hypoxic respiratory failure, pneumothorax, pneumonia, COPD exacerbation, asthma, pulmonary infection, arrhythmia, sepsis, amongst others. Reevaluation(s) Time of Reevaluation #1: 07:31 Reevaluation #1: Oxygen levels are doing well. I have actually turned down the BiPAP oxygen percentage. I am still giving him a little bit of pressure support. After the initial neb I can actually hear a little bit more air movement and has brought out the wheeze which I think is just a function of better air movement. Oxygen levels remained 100% but he is still quite tachypneic. Will give a dose of IV magnesium, asthma protocol. Chest x-ray reviewed, does not show any signs of pneumothorax, pleural effusion, infiltrate. Will attempt to wean on to non- rebreather oxygen. I did give a corner mg of IV lorazepam to help him relax and hopefully slow his respiratory rate in relation to the BiPAP machine. Time of Reevaluation #2: 08:22 Reevaluation #2: Respiratory therapy is following, hospitalist has accepted for admission. He is now on nasal cannula oxygen. He is still tachypneic but is moving air a little bit better and oxygen sats remained stable. D-dimer is still pending and hospitalist team says they will follow up on this for further management. Vital Signs Vital signs: Initial Vital Signs Temperature 98.3 F 07/30/24 06:46 Temperature Source Temporal Artery Scan 07/30/24 06:46 Pulse Rate 100 07/30/24 06:46 Pulse Rhythm Regular 07/30/24 06:46 Respiratory Rate 37 H 07/30/24 06:46 Blood Pressure 161/78 H 07/30/24 06:46 Blood Pressure Mean 105 07/30/24 06:46 Blood Pressure Position Supine 07/30/24 06:46 Pulse Oximetry 100 07/30/24 06:46 Oxygen Delivery Method Room Air 07/30/24 06:46 Vital Signs Temperature 98.3 F 07/30/24 06:46 Pulse Rate 100 07/30/24 06:46 Respiratory Rate 37 H 07/30/24 06:46 Blood Pressure 161/78 H 07/30/24 06:46 Pulse Oximetry 100 07/30/24 06:46 Oxygen Delivery Method Room Air 07/30/24 06:46 Temperature 98.3 F 07/30/24 06:46 Pulse Rate 104 H 07/30/24 08:02 Respiratory Rate 37 H 07/30/24 06:46 Blood Pressure 134/117 H 07/30/24 08:02 Pulse Oximetry 94 07/30/24 08:02 Oxygen Delivery Method Room Air 07/30/24 06:46 Medications Administered Medications: Generic Name Dose Route Start Last Admin Trade Name Freq PRN Reason Stop Dose Admin Hydromorphone HCl 0.2 mg 07/30/24 07:43 07/30/24 07:47 Hydromorphone 0.5 Mg/0.5 Ml Inj IVP 0.2 mg Q2H PRN Administration rib pain Discontinued Medications Generic Name Dose Route Start Last Admin Trade Name Freq PRN Reason Stop Dose Admin Albuterol 2.5 mg 07/30/24 07:26 07/30/24 07:41 Albuterol Sulfate 2.5 Mg/3 Ml Vial.Neb NEB 07/30/24 07:27 2.5 mg ONCE ONE Administration Albuterol/Ipratropium 1 neb 07/30/24 06:40 07/30/24 07:00 Iprat-Albut 0.5-2.5 Mg/3 Ml Neb 07/30/24 06:41 1 neb ONCE ONE Administration Ceftriaxone Sodium 1 gm/ 100 mls @ 200 mls/hr 07/30/24 07:23 07/30/24 08:22 Sodium Chloride IVPB 07/30/24 07:24 200 mls/hr ONCE ONE Administration Magnesium Sulfate 2 gm in 50 mls @ 150 mls/hr 07/30/24 07:26 07/30/24 07:36 Magnesium Iv IVPB 07/30/24 07:45 150 mls/hr ONCE ONE Administration Lorazepam 0.25 mg 07/30/24 07:08 07/30/24 07:14 Lorazepam 2 Mg/Ml Inj IVP 07/30/24 07:09 0.25 mg ONCE ONE Administration Methylprednisolone Sodium Succinate 125 mg 07/30/24 06:40 07/30/24 06:55 Methylprednisolone Sod Succ 62.5 Mg/Ml (125) IVP 07/30/24 06:41 125 mg ONCE ONE Administration Medical Decision Making Lab Data Lab results reviewed: Yes I reviewed the patient's lab results Labs: Lab Results 07/30/24 07/30/24 07/30/24 Range/Units 06:52 06:52 06:52 WBC Cancelled 5.45 Corrected WBC Cancelled RBC Cancelled 3.90 L Hgb Cancelled Hct MCV MCH MCHC RDW Coeff of [place] Plt Count Neut % (Auto) Lymph % (Auto) [place] % (Auto) Eos % (Auto) Baso % (Auto) Neut # (Auto) Lymph # (Auto) [place] # (Auto) Eos # (Auto) Baso # (Auto) Abs Immat Gran (auto) Imm/Tot Granulo (auto) D-Dimer Quant (PE/DVT) VBG pH (7.32-7.43) VBG pCO2 (40-50) mmHG VBG pO2 (25-47) mmHG VBG HCO3 (21-28) mmol/L Sodium (135-149) mmol/L Potassium (3.6-5.1) mmol/L Chloride (96-114) mmol/L Carbon Dioxide (20-32) mmol/L Anion Gap (7-15) mEq/L BUN (7-30) mg/dL Creatinine (0.5-1.5) mg/dL Estimated Creat Clear Estimated GFR ml/min Glucose (60-115) mg/dL Lactate (0.5-1.9) mmol/L Calcium (8.4-10.6) mg/dL Magnesium (1.5-2.6) mg/dL Total Bilirubin (0.1-1.5) mg/dL AST (12-35) U/L ALT (4-50) U/L Alkaline Phosphatase (40-150) U/L Troponin I (0.01-0.04) ng/mL NT-Pro-B Natriuret Pep pg/mL Total Protein (6.0-8.3) g/dL Albumin (3.3-5.0) g/dL Lab Acknowledgement 07/30/24 07/30/24 07/30/24 Range/Units 06:52 06:52 06:52 WBC Corrected WBC RBC Hgb 12.4 L Hct Cancelled 38.3 MCV Cancelled 98 MCH Cancelled MCHC RDW Coeff of [place] Plt Count Neut % (Auto) Lymph % (Auto) [place] % (Auto) Eos % (Auto) Baso % (Auto) Neut # (Auto) Lymph # (Auto) [place] # (Auto) Eos # (Auto) Baso # (Auto) Abs Immat Gran (auto) Imm/Tot Granulo (auto) D-Dimer Quant (PE/DVT) VBG pH (7.32-7.43) VBG pCO2 (40-50) mmHG VBG pO2 (25-47) mmHG VBG HCO3 (21-28) mmol/L Sodium (135-149) mmol/L Potassium (3.6-5.1) mmol/L Chloride (96-114) mmol/L Carbon Dioxide (20-32) mmol/L Anion Gap (7-15) mEq/L BUN (7-30) mg/dL Creatinine (0.5-1.5) mg/dL Estimated Creat Clear Estimated GFR ml/min Glucose (60-115) mg/dL Lactate (0.5-1.9) mmol/L Calcium (8.4-10.6) mg/dL Magnesium (1.5-2.6) mg/dL Total Bilirubin (0.1-1.5) mg/dL AST (12-35) U/L ALT (4-50) U/L Alkaline Phosphatase (40-150) U/L Troponin I (0.01-0.04) ng/mL NT-Pro-B Natriuret Pep pg/mL Total Protein (6.0-8.3) g/dL Albumin (3.3-5.0) g/dL Lab Acknowledgement 07/30/24 07/30/24 07/30/24 Range/Units 06:52 06:52 06:52 WBC Corrected WBC RBC Hgb Hct MCV MCH 32 MCHC Cancelled 32 RDW Coeff of [place] Cancelled 15.9 H Plt Count Cancelled Neut % (Auto) Lymph % (Auto) [place] % (Auto) Eos % (Auto) Baso % (Auto) Neut # (Auto) Lymph # (Auto) [place] # (Auto) Eos # (Auto) Baso # (Auto) Abs Immat Gran (auto) Imm/Tot Granulo (auto) D-Dimer Quant (PE/DVT) VBG pH (7.32-7.43) VBG pCO2 (40-50) mmHG VBG pO2 (25-47) mmHG VBG HCO3 (21-28) mmol/L Sodium (135-149) mmol/L Potassium (3.6-5.1) mmol/L Chloride (96-114) mmol/L Carbon Dioxide (20-32) mmol/L Anion Gap (7-15) mEq/L BUN (7-30) mg/dL Creatinine (0.5-1.5) mg/dL Estimated Creat Clear Estimated GFR ml/min Glucose (60-115) mg/dL Lactate (0.5-1.9) mmol/L Calcium (8.4-10.6) mg/dL Magnesium (1.5-2.6) mg/dL Total Bilirubin (0.1-1.5) mg/dL AST (12-35) U/L ALT (4-50) U/L Alkaline Phosphatase (40-150) U/L Troponin I (0.01-0.04) ng/mL NT-Pro-B Natriuret Pep pg/mL Total Protein (6.0-8.3) g/dL Albumin (3.3-5.0) g/dL Lab Acknowledgement 07/30/24 07/30/24 07/30/24 Range/Units 06:52 06:52 06:52 WBC Corrected WBC RBC Hgb Hct MCV MCH MCHC RDW Coeff of [place] Plt Count 133 L Neut % (Auto) Cancelled 79.3 H Lymph % (Auto) Cancelled 13.4 L [place] % (Auto) Cancelled Eos % (Auto) Baso % (Auto) Neut # (Auto) Lymph # (Auto) [place] # (Auto) Eos # (Auto) Baso # (Auto) Abs Immat Gran (auto) Imm/Tot Granulo (auto) D-Dimer Quant (PE/DVT) VBG pH (7.32-7.43) VBG pCO2 (40-50) mmHG VBG pO2 (25-47) mmHG VBG HCO3 (21-28) mmol/L Sodium (135-149) mmol/L Potassium (3.6-5.1) mmol/L Chloride (96-114) mmol/L Carbon Dioxide (20-32) mmol/L Anion Gap (7-15) mEq/L BUN (7-30) mg/dL Creatinine (0.5-1.5) mg/dL Estimated Creat Clear Estimated GFR ml/min Glucose (60-115) mg/dL Lactate (0.5-1.9) mmol/L Calcium (8.4-10.6) mg/dL Magnesium (1.5-2.6) mg/dL Total Bilirubin (0.1-1.5) mg/dL AST (12-35) U/L ALT (4-50) U/L Alkaline Phosphatase (40-150) U/L Troponin I (0.01-0.04) ng/mL NT-Pro-B Natriuret Pep pg/mL Total Protein (6.0-8.3) g/dL Albumin (3.3-5.0) g/dL Lab Acknowledgement 07/30/24 07/30/24 07/30/24 Range/Units 06:52 06:52 06:52 WBC Corrected WBC RBC Hgb Hct MCV MCH MCHC RDW Coeff of [place] Plt Count Neut % (Auto) Lymph % (Auto) [place] % (Auto) 3.7 Eos % (Auto) Cancelled 2.6 Baso % (Auto) Cancelled 0.4 Neut # (Auto) Cancelled Lymph # (Auto) [place] # (Auto) Eos # (Auto) Baso # (Auto) Abs Immat Gran (auto) Imm/Tot Granulo (auto) D-Dimer Quant (PE/DVT) VBG pH (7.32-7.43) VBG pCO2 (40-50) mmHG VBG pO2 (25-47) mmHG VBG HCO3 (21-28) mmol/L Sodium (135-149) mmol/L Potassium (3.6-5.1) mmol/L Chloride (96-114) mmol/L Carbon Dioxide (20-32) mmol/L Anion Gap (7-15) mEq/L BUN (7-30) mg/dL Creatinine (0.5-1.5) mg/dL Estimated Creat Clear Estimated GFR ml/min Glucose (60-115) mg/dL Lactate (0.5-1.9) mmol/L Calcium (8.4-10.6) mg/dL Magnesium (1.5-2.6) mg/dL Total Bilirubin (0.1-1.5) mg/dL AST (12-35) U/L ALT (4-50) U/L Alkaline Phosphatase (40-150) U/L Troponin I (0.01-0.04) ng/mL NT-Pro-B Natriuret Pep pg/mL Total Protein (6.0-8.3) g/dL Albumin (3.3-5.0) g/dL Lab Acknowledgement 07/30/24 07/30/24 07/30/24 Range/Units 06:52 06:52 06:52 WBC Corrected WBC RBC Hgb Hct MCV MCH MCHC RDW Coeff of [place] Plt Count Neut % (Auto) Lymph % (Auto) [place] % (Auto) Eos % (Auto) Baso % (Auto) Neut # (Auto) 4.30 Lymph # (Auto) Cancelled 0.70 L [place] # (Auto) Cancelled 0.20 Eos # (Auto) Cancelled Baso # (Auto) Abs Immat Gran (auto) Imm/Tot Granulo (auto) D-Dimer Quant (PE/DVT) VBG pH (7.32-7.43) VBG pCO2 (40-50) mmHG VBG pO2 (25-47) mmHG VBG HCO3 (21-28) mmol/L Sodium (135-149) mmol/L Potassium (3.6-5.1) mmol/L Chloride (96-114) mmol/L Carbon Dioxide (20-32) mmol/L Anion Gap (7-15) mEq/L BUN (7-30) mg/dL Creatinine (0.5-1.5) mg/dL Estimated Creat Clear Estimated GFR ml/min Glucose (60-115) mg/dL Lactate (0.5-1.9) mmol/L Calcium (8.4-10.6) mg/dL Magnesium (1.5-2.6) mg/dL Total Bilirubin (0.1-1.5) mg/dL AST (12-35) U/L ALT (4-50) U/L Alkaline Phosphatase (40-150) U/L Troponin I (0.01-0.04) ng/mL NT-Pro-B Natriuret Pep pg/mL Total Protein (6.0-8.3) g/dL Albumin (3.3-5.0) g/dL Lab Acknowledgement 07/30/24 07/30/24 07/30/24 Range/Units 06:52 06:52 06:52 WBC Corrected WBC RBC Hgb Hct MCV MCH MCHC RDW Coeff of [place] Plt Count Neut % (Auto) Lymph % (Auto) [place] % (Auto) Eos % (Auto) Baso % (Auto) Neut # (Auto) Lymph # (Auto) [place] # (Auto) Eos # (Auto) 0.14 Baso # (Auto) Cancelled 0.02 Abs Immat Gran (auto) Cancelled 0.03 Imm/Tot Granulo (auto) Cancelled D-Dimer Quant (PE/DVT) VBG pH (7.32-7.43) VBG pCO2 (40-50) mmHG VBG pO2 (25-47) mmHG VBG HCO3 (21-28) mmol/L Sodium (135-149) mmol/L Potassium (3.6-5.1) mmol/L Chloride (96-114) mmol/L Carbon Dioxide (20-32) mmol/L Anion Gap (7-15) mEq/L BUN (7-30) mg/dL Creatinine (0.5-1.5) mg/dL Estimated Creat Clear Estimated GFR ml/min Glucose (60-115) mg/dL Lactate (0.5-1.9) mmol/L Calcium (8.4-10.6) mg/dL Magnesium (1.5-2.6) mg/dL Total Bilirubin (0.1-1.5) mg/dL AST (12-35) U/L ALT (4-50) U/L Alkaline Phosphatase (40-150) U/L Troponin I (0.01-0.04) ng/mL NT-Pro-B Natriuret Pep pg/mL Total Protein (6.0-8.3) g/dL Albumin (3.3-5.0) g/dL Lab Acknowledgement 07/30/24 07/30/24 Range/Units 06:52 07:19 WBC Corrected WBC RBC Hgb Hct MCV MCH MCHC RDW Coeff of [place] Plt Count Neut % (Auto) Lymph % (Auto) [place] % (Auto) Eos % (Auto) Baso % (Auto) Neut # (Auto) Lymph # (Auto) [place] # (Auto) Eos # (Auto) Baso # (Auto) Abs Immat Gran (auto) Imm/Tot Granulo (auto) 0.6 D-Dimer Quant (PE/DVT) Cancelled VBG pH 7.346 (7.32-7.43) VBG pCO2 39 L (40-50) mmHG VBG pO2 75.5 H (25-47) mmHG VBG HCO3 21 (21-28) mmol/L Sodium 135 (135-149) mmol/L Potassium 4.0 (3.6-5.1) mmol/L Chloride 103 (96-114) mmol/L Carbon Dioxide 20 (20-32) mmol/L Anion Gap 12 (7-15) mEq/L BUN 24 (7-30) mg/dL Creatinine 1.6 H (0.5-1.5) mg/dL Estimated Creat Clear 34.89 Estimated GFR 44 ml/min Glucose 137 H (60-115) mg/dL Lactate 1.1 (0.5-1.9) mmol/L Calcium 8.8 (8.4-10.6) mg/dL Magnesium 2.3 (1.5-2.6) mg/dL Total Bilirubin 0.8 (0.1-1.5) mg/dL AST 16 (12-35) U/L ALT 15 (4-50) U/L Alkaline Phosphatase 133 (40-150) U/L Troponin I < 0.01 L (0.01-0.04) ng/mL NT-Pro-B Natriuret Pep 172 pg/mL Total Protein 6.5 (6.0-8.3) g/dL Albumin 4.2 (3.3-5.0) g/dL Lab Acknowledgement Test Added Imaging Data Chest x-ray: Attestation: I have reviewed the pertinent imaging results. My impression: No significant pulmonary vascular congestion, focal infiltrates, pneumothorax or pleural effusion. Some hilar infiltrate noted. Rib fracture seem stable. Radiologist's impression: Findings/Impression: Cardiovascular and mediastinum: Normal heart size with mild aortic tortuosity. Lungs and pleural space: No pleural effusion or pneumothorax. Scattered areas of discoid atelectasis lung bases. Mild pleural thickening right lung laterally. Bones and soft tissues: Stable right rib deformity. Dictated by Marbin Novoa MD @ 07/30/2024 7:07:08 AM ECG Data Attestation: I personally reviewed and interpreted this ECG as follows: Prior ECG tracings: available for review (Comparison June) Interpretation: Sinus tachycardia with a rate of 105. Tachycardia is pretty stable for him when he comes in acutely ill. Does have some signs of a left anterior fascicular block which is unchanged. Otherwise intervals and axis are essentially normal. ST segments are unchanged. Stable EKG. Critical Care Time Critical Care Time Critical Care Time: Yes Attestation: The patient required my highest level preparedness to intervene emergently and I personally spent this critical care time directly and personally managing the patient. This critical care time included: Obtaining a history; Examining the patient; Pulse oximetry; Ordering and reviewing of studies; Arranging urgent treatment with development of a management plan; Evaluation of patients response to treatment; Frequent reassessment discussions with other providers. This critical care time was performed to assess and manage the high probability of imminent life-threatening deterioration that could result in multiorgan failure. It was exclusive of separate billable procedures and treating other patients and teaching time. Total Critical Care Time in Minutes: 35 (35 minutes spent in direct critical care time with initial stabilization that I was unable to care for other patients during this time.) Discharge Plan Discharge Prescriptions: No Action ascorbic acid (vitamin C) 500 mg capsule 500 mg PO DAILY aspirin 81 mg tablet,delayed release (DR/EC) 81 mg PO QDAY budesonide-formoterol 160-4.5 mcg/actuation HFA aerosol inhaler 2 puff inhalation BID cholecalciferol (vitamin D3) 25 mcg (1,000 unit) capsule 25 mcg PO QDAY cyclobenzaprine 10 mg tablet 10 mg PO TID dexamethasone 4 mg tablet 4 mg PO QDAY Rx Instructions: Take 10 tablets every week for 3 weeks. diclofenac sodium [Aleve (diclofenac)] 1 % gel 4 g topical QID Rx Instructions: apply to single knee, ankle, foot; for foot includes sole/toes/top of foot omega 4-wdc-mwc-fish oil [Fish Oil] 1,000 mg (120 mg-180 mg) capsule 1 cap PO QDAY lenalidomide 10 mg capsule 10 mg PO QDAY Rx Instructions: swallow whole with glass of water; do not open, crush, chew , break, or dissolve 1 capsule daily for 14 days. loratadine [Allergy Relief (loratadine)] 10 mg tablet 10 mg PO QDAY metformin 1,000 mg tablet 1,000 mg PO BID tiotropium bromide 18 mcg capsule, w/inhalation device 1 cap inhalation QDAY Rx Instructions: puncture 1 cap using device; one dose = 2 inhalations prochlorperazine maleate 10 mg tablet 10 mg PO Q6H PRN albuterol sulfate 90 mcg/actuation HFA aerosol inhaler 2 inh inhalation Q4H PRN (Reason: shortness of breath or wheezing) Qty: 8.5 0RF prednisone 20 mg tablet 40 mg PO DAILY 5 Days Qty: 10 0RF ipratropium-albuterol 0.5 mg-3 mg(2.5 mg base)/3 mL solution for nebulization 3 ml inhalation QID PRNQty: 90 0RF prednisone 20 mg tablet 20 mg PO DIRECTED 9 Days Qty: 18 0RF Rx Instructions: 60 mg p.o. daily for 3 days (3 tablets daily on day 1-3), 40 mg daily for 3 days (2 tablets daily on days 4-6), 20 mg daily for 3 days (1 tablet daily on days 7-9). Follow Up/Referrals: Provider,Not a Local [Primary Care Provider] -
[2024-07-30 07:29] LABS: HCO3 VBG 21 mmol/L (21-28); PCO2 VBG 39 mmHG (40-50); PO2 VBG 75.5 mmHG (25-47); pH VBG 7.346 (7.32-7.43)
[2024-07-30] MEDS: MAGNESIUM IV 2 GM/50 ML PIGGYBACK IVPB (07:36)
[2024-07-30] MEDS: ALBUTEROL SULFATE 2.5 MG/3 ML VIAL.NEB NEB ×2 (07:41→22:26)
[2024-07-30 07:44] LABS: Chloride* 103 mmol/L (96-114)
[2024-07-30 07:45] LABS: Albumin* 4.2 g/dL (3.3-5.0); Sodium* 135 mmol/L (135-149)
[2024-07-30 07:47] LABS: Creatinine* 1.6 mg/dL (0.5-1.5); Est. Creatinine Clearance* 34.89; Estimated Glomerular Filt Rate 44 ml/min
[2024-07-30] MEDS: HYDROmorphone 0.5 mg/0.5 ml inj 0.2 MG IVP (07:47)
[2024-07-30 07:48] LABS: Alanine Aminotransferase* 15 U/L (4-50); Alkaline Phosphatase* 133 U/L (40-150); Anion Gap 12 mEq/L (7-15); Aspartate Amino Transferase* 16 U/L (12-35); Bilirubin Total* 0.8 mg/dL (0.1-1.5); Blood Urea Nitrogen* 24 mg/dL (7-30); Carbon Dioxide* 20 mmol/L (20-32); Glucose* 137 mg/dL (60-115); Total Protein* 6.5 g/dL (6.0-8.3)
[2024-07-30 07:49] LABS: Calcium* 8.8 mg/dL (8.4-10.6); Magnesium* 2.3 mg/dL (1.5-2.6)
[2024-07-30 08:08] LABS: NT Pro B Type NatriureticPept* 172 pg/mL; Troponin I* < 0.01 ng/mL (0.01-0.04)
[2024-07-30 08:12] LABS: Basophils Absolute Auto 0.02 K/uL (0.00-0.30); Basophils Percent Auto 0.4 % (0.0-3.0); Eosinophils Absolute Auto 0.14 K/uL (0.00-0.50); Eosinophils Percent Auto 2.6 % (0.0-7.0); Hematocrit 38.3 % (37.0-53.0); Hemoglobin* 12.4 gm/dL (13.5-17.5); Immature Granulocytes Abs Auto 0.03 K/uL (0.00-0.30); Immature Granulocytes Pct Auto 0.6 %; Lymphocytes Percent Auto 13.4 % (20-44); Mean Corpuscular HGB Conc 32 gm/dL (32-36); Mean Corpuscular Hemoglobin 32 pg (26-34); Mean Corpuscular Volume 98 fL (80-100); Monocytes Percent Auto 3.7 % (0.0-11.0); Neutrophils Percent Auto 79.3 % (42.0-72.0); Platelet Count* 133 K/uL (140-440); RDW Coefficient of Variation % 15.9 % (11.5-15.5); White Blood Count* 5.45 K/uL (4.50-11.00)
[2024-07-30 08:13] LABS: Slide Review Reflex No
[2024-07-30] MEDS: cefTRIAXone 1 GM in 0.9 % SODIUM CHLORIDE Mini-bag 100 ML IVPB (08:22)
[2024-07-30] MEDS: AZITHROMYCIN 500 MG in 0.9 % SODIUM CHLORIDE 250 ml 250 ML 255 MG IVPB (09:08)
[2024-07-30 09:14] LABS: Appearance Urine Clear (Clear); Bilirubin Urine 1+ (Negative); Blood Urine Negative (Negative); Color Urine Yellow (Yellow); Glucose Urine 2+ (Negative); Ketones Urine 2+ (Negative); Leukocyte Esterase Urine Negative (Negative); Nitrite Urine Negative (Negative); Protein Urine Negative (Negative); Specific Gravity Urine 1.025 (1.000-1.030); Urobilinogen Urine 0.2 (0.2-1.0)
[2024-07-30 10:31] LABS: PCR FLU A Negative PCR FLU A (Negative); PCR FLU B Negative PCR FLU B (Negative); PCR RSV POSITIVE PCR RSV (Negative); SARS PCR* Negative SARS-CoV-2 (Negative)
--- NOTE | 2024-07-30 11:50 | RESP.RT ---
Pt seen this AM in ED. Off of BIPAP at that time. PT RR 36, BS with minimial coarse aeration, limited exp phase. PT on Med/Surg RR increased with movements to bed. BBS diminished, no Expiratory phase heard. Duo neb given, opening up lungs somewhat. Coarse expiratory wheezing now. Worked on pursed lip breathing at this time to slow down respiratory rate. It did decrease to 30. Amazingly pt continues to talk throughout these episodes. suggested to provider to do Q2 albuterol nebs up to 1600 if Heart tolerates, in an attempt to open up airways, then Q4 alternating Alb with Duo neb. Pt did receive IV magnesium in ED. Pt is currently on a Chemo regime. Question if pulmonary toxicity is in play.
--- NOTE | 2024-07-30 12:08 | P.IMHP_ITS ---
Hospitalist- H&P: HPI History of Present Illness Date Seen: 07/30/24 Chief complaint: Respiratory distress Narrative: Power Piña is a 78 year old male past medical history significant for multiple myeloma on lenalidomide, diabetes mellitus type 2 not insulin dependent, COPD, hearing loss is admitted to the medical floor from the ED for further management acute hypoxic respiratory failure in the setting of acute RSV infection. Patient reports increased shortness of breath and weakness around midnight. Final called EMS around 530 this morning. Oxygen saturations noted to be in the 80s and tachypneic in the 40s. Patient does wear an oximeter pendant but is not oxygen dependent. Has had recent episodes of COPD exacerbations. Uses his nebulizer as needed. Uses his prescribed inhalers almost always daily. Reports feeling better on admission to the floor after being on oxygen and receiving nebs. Has coughed up clear phlegm. Reports chest tightness, specifically over the right anterior chest, this after a rib fracture approximately 2 weeks ago. Denies headache. Did has some dizziness earlier this morning. Denies recent fevers. Has had some mild nausea but denies vomiting. No change in stools. No change in urination. Increased weakness. No recent falls but did fall 2 weeks ago resulting in rib fractures. Lives alone in [place]. Has family support in daughters, son, granddaughter. Quit smoking in his 60s. Does not drink daily but will have 3-4 beers or mixed drinks on occasion. PCP is the [facility]. Review of Systems Narrative: REVIEW OF SYSTEMS: Complete review of systems performed and negative unless otherwise stated in HPI or below. [facility] Medical History CKD stage 3b, GFR 30-44 ml/min ?N18.32 - Chronic kidney disease, stage 3b (ICD-10) Thrombocytopenia ?D69.6 - Thrombocytopenia, unspecified (ICD-10) Productive cough ?R05.8 - Other specified cough (ICD-10) Family History Son Myocardial infarction Social History Smoking Status: Never smoker Do you use any of these nicotine containing products: None How often do you have a drink containing alcohol: never How often do you have six or more drinks on one occasion: Never AUDIT-C Alcohol total score: 0 Non-prescribed substance use: denies use service: No Meds Home Medications and Allergies Home Medications ?Medication ?Instructions ?Recorded ?Confirmed ?Type ascorbic acid (vitamin C) 500 mg 500 mg PO DAILY 07/20/23 07/30/24 History capsule aspirin 81 mg tablet,delayed 81 mg PO DAILY 07/20/23 07/30/24 History release cholecalciferol (vitamin D3) 25 25 mcg PO DAILY 07/20/23 07/30/24 History mcg (1,000 unit) capsule dexamethasone 4 mg tablet 20 mg PO QWEEK 07/20/23 07/30/24 History diclofenac sodium 1 % topical gel 4 g topical QID 07/20/23 07/30/24 History (Aleve (diclofenac)) lenalidomide 10 mg capsule 10 mg PO DAILY 07/20/23 07/30/24 History metformin 1,000 mg tablet 1,000 mg PO DAILY 07/20/23 07/30/24 History omega 7-rnm-apm-fish oil 1,000 mg 1 cap PO BID 07/20/23 07/30/24 History (120 mg-180 mg) capsule (Fish Oil) empagliflozin 25 mg tablet 12.5 mg PO DAILY 07/30/24 07/30/24 History glipizide 10 mg tablet 10 mg PO BID 07/30/24 07/30/24 History magnesium oxide 400 mg PO DAILY 07/30/24 07/30/24 History mometasone 100 mcg/actuation HFA 2 inh inhalation BID 07/30/24 07/30/24 History aerosol inhaler olodaterol 2.5 mcg/actuation mist 2 inh inhalation DAILY 07/30/24 07/30/24 History for inhalation Allergies Allergy/AdvReac Type Severity Reaction Status Date / Time No Known Drug Allergies Allergy Verified 06/17/24 13:49 Exam Narrative: Exam Narrative: PHYSICAL EXAM General: Pleasant, very talkative despite dyspnea, NAD HEENT: Normocephalic, atraumatic, sclera white, EOMI, oral mucosa moist Cardiovascular: RRR, S1S2. No pitting edema Pulmonary: Diminished breath sounds throughout, mildly coarse, expiratory wheezes, dyspnea with halting speech Abdominal: Soft, obese, nondistended, NTTP Neurological: Alert, answering questions appropriately, cranial nerves intact, no focal findings Extremities: No gross joint deformity or swelling. AROMI. Neurovascularly intact Skin: Warm, dry. Const: Vital Signs, click to edit/add: Vital Signs - 24 hr 07/30/24 06:46 07/30/24 07:24 07/30/24 07:30 Temperature 98.3 F Pulse Rate 107 H 103 H Pulse Rate [Right Pulse Oximeter] 100 Respiratory Rate 37 H Blood Pressure Blood Pressure [Le ft Upper Arm] 161/78 H Pulse Oximetry 100 96 100 Oxygen Delivery Me thod Room Air 07/30/24 07:32 07/30/24 07:45 07/30/24 08:00 Temperature Pulse Rate 106 H 104 H 104 H Pulse Rate [Right Pulse Oximeter] Respiratory Rate Blood Pressure 134/69 Blood Pressure [Le ft Upper Arm] Pulse Oximetry 98 100 95 Oxygen Delivery Me thod 07/30/24 08:02 07/30/24 08:03 07/30/24 08:15 Temperature Pulse Rate 104 H 104 H 108 H Pulse Rate [Right Pulse Oximeter] Respiratory Rate 36 H Blood Pressure 134/117 H Blood Pressure [Le ft Upper Arm] Pulse Oximetry 94 94 95 Oxygen Delivery Me thod 07/30/24 08:30 07/30/24 08:32 07/30/24 08:45 Temperature Pulse Rate 102 H 101 H 105 H Pulse Rate [Right Pulse Oximeter] Respiratory Rate 32 H 32 H Blood Pressure 143/91 H Blood Pressure [Le ft Upper Arm] Pulse Oximetry 94 94 95 Oxygen Delivery Me thod 07/30/24 09:00 07/30/24 09:02 07/30/24 09:15 Temperature Pulse Rate 102 H 98 96 Pulse Rate [Right Pulse Oximeter] Respiratory Rate Blood Pressure 133/74 Blood Pressure [Le ft Upper Arm] Pulse Oximetry 96 96 96 Oxygen Delivery Me thod 07/30/24 09:30 07/30/24 09:32 07/30/24 09:45 Temperature Pulse Rate 94 103 H 98 Pulse Rate [Right Pulse Oximeter] Respiratory Rate 32 H Blood Pressure 131/64 Blood Pressure [Le ft Upper Arm] Pulse Oximetry 98 94 97 Oxygen Delivery Me thod 07/30/24 10:00 07/30/24 10:02 07/30/24 10:03 Temperature Pulse Rate 95 93 93 Pulse Rate [Right Pulse Oximeter] Respiratory Rate Blood Pressure 99/74 Blood Pressure [Le ft Upper Arm] Pulse Oximetry 100 99 97 [facility] 07[facility] 10:15 07/30/24 10:30 07/30/24 10:33 Temperature Pulse Rate 93 96 95 Pulse Rate [Right Pulse Oximeter] Respiratory Rate Blood Pressure 135/60 Blood Pressure [Le ft Upper Arm] Pulse Oximetry 100 97 99 Oxygen Delivery [facility] Hospitalist - H&P: Result Labs Labs: Short CBC 07/30/24 07/30/24 07/30/24 Range/Units 06:52 06:52 06:52 WBC Cancelled 5.45 Hgb Cancelled 12.4 L Hct Cancelled Plt Count 07/30/24 07/30/24 Range/Units 06:52 06:52 WBC Hgb Hct 38.3 Plt Count Cancelled 133 L BMP 07/30/24 06:52 Sodium 135 Potassium 4.0 Chloride 103 Carbon Dioxide 20 BUN 24 Creatinine 1.6 H Glucose 137 H Calcium 8.8 Cardiac Enzymes 07/30/24 Range/Units 06:52 Troponin I < 0.01 L (0.01-0.04) ng/mL Liver Function 07/30/24 Range/Units 06:52 Total Bilirubin 0.8 (0.1-1.5) mg/dL AST 16 (12-35) U/L ALT 15 (4-50) U/L Alkaline Phosphatase 133 (40-150) U/L Albumin 4.2 (3.3-5.0) g/dL Urine 07/30/24 Range/Units 06:40 Urine Color Yellow (Yellow) Urine Appearance Clear (Clear) Urine pH 5.0 (5.0-8.5) Ur Specific [place] 1.025 (1.000-1.030) Urine Protein Negative (Negative) Urine Glucose (UA) 2+ A (Negative) ECG Attestation: I personally reviewed and interpreted this ECG as follows: Interpretation: Sinus tachycardia with first-degree AV block, rate 105, QTC 433 Imaging Chest x-ray: Attestation: I have reviewed the pertinent imaging results. Radiologist's impression: Cardiovascular and mediastinum: Normal heart size with mild aortic tortuosity. Lungs and pleural space: No pleural effusion or pneumothorax. Scattered areas of discoid atelectasis lung bases. Mild pleural thickening right lung laterally. Bones and soft tissues: Stable right rib deformity. Assessment and Plan Assessment and plan (1) Acute hypoxic respiratory failure: Problem comment: -oxygen saturations on room air reported by EMS in the 80s, initially placed on BiPAP -in the setting of acute RSV and COPD exacerbation -CXR shows no pleural effusion or pneumothorax. Scattered areas of discoid atelectasis lung bases. Mild pleural thickening right lung laterally -VBG pH 7.346, pCO2 39, PO2 75 -no leukocytosis, lactate 1.1, BC x1 pending -D-dimer pending, CRP, procalcitonin ordered -consider further imaging with CT if new or worsening symptoms or no improvement -RT for pulmonary support Status: Acute (2) RSV (respiratory syncytial virus infection): Problem comment: -RSV+, COVID and influenza negative -respiratory support, symptomatic cares -RT support Status: Acute (3) COPD exacerbation: Problem comment: -oxygen supplementation to maintain saturations >88%, weaning as able -alternating DuoNebs and albuterol nebs -continue empiric azithromycin and ceftriaxone as initiated in the ED -prednisone 40 mg daily, received methylprednisolone x1 in the ED -incentive spirometry, aerobika -RT for pulmonary support Status: Acute (4) Type 2 diabetes mellitus: Problem comment: -most recent A1c 7.6 -continue glipizide, hold metformin -glucose checks ACHS, insulin sliding scale with tight glucose management while on steroids Status: Chronic (5) Multiple myeloma: Problem comment: -continue lenalidomide dosing, using home supply -of note this medication does have pulmonary adverse effects which could be contributing to acute respiratory failure - monitor [facility] Status: Chronic (6) Hearing loss: Problem comment: Wears hearing aids Status: Chronic (7) Thrombocytopenia: Problem comment: -chronic, currently 133, previously 105-123 Status: Acute (8) CKD stage 3b, GFR 30-44 ml/min: Problem comment: -creatinine 1.6, baseline 1.5-1.7 -avoid nephrotoxic medications, renally dose medications, monitor Status: Acute Total Time Spent Total Time Spent: Total time spent caring for the patient today was 75 minutes. This includes time spent for the visit reviewing the chart, time spent during the visit, time spent after the visit and documentation and planning in coordination of care.
[2024-07-30] MEDS: guaiFENesin 600 MG TAB.ER.12H 1200 MG PO ×2 (12:18→20:57)
[2024-07-30] MEDS: BUDESONIDE 0.5 MG/2ML NEB NEB ×2 (12:18→20:57)
[2024-07-30 12:39] LABS: C Reactive Protein* 7.3 mg/dL (0.5-1.0)
[2024-07-30 12:47] LABS: Legionella pneumo Ag Urine L. pneumo Negative (Negative); S pneumo Ag Urine S. pneumo Negative (Negative)
[2024-07-30 12:54] LABS: Procalcitonin* 0.28 ng/mL (<0.50)
[2024-07-30 13:04] LABS: D Dimer Quantitative* 0.53 ug/ml (0.00-0.50)
[2024-07-30] MEDS: ASPIRIN 81 MG TABLET EC PO (14:18)
--- NOTE | 2024-07-30 15:20 | REH.OT ---
OT: Orders received, spoke with RN x2 this afternoon. PT/OT to hold to advance activity tomorrow due to respiratory status. Will eval tomorrow.
[2024-07-30] MEDS: INSULIN ASPART 100 UNIT/ML SUBCUT ×2 (17:35→20:57)
[2024-07-30] MEDS: ACETAMINOPHEN 325 MG TABLET PO (17:41)
--- NOTE | 2024-07-30 18:40 | PC.NURSE ---
End of Shift: Patient pleasant a cooperative. Patient vitally stable, lungs with expiratory wheezes and diminished with RR at 34, MD aware. Patient bowel sounds WNL, IV SL and intact. Patient has not been out of bed, but is 1 assist/walker. Patient rates chest pain with coughing 5/6, tylenol given once. Patient tolerating regular diet but does not have much appetite as patient has no put more effort into breathing. Blood sugar was 272, three units given.
--- NOTE | 2024-07-30 19:31 | W.PM.CROSSCO ---
Subjective Subjective Date Seen: 07/30/24 Principal diagnosis: RSV, COPD Interval history: 78-year-old male admitted to the hospital today with COPD exacerbation in the context of RSV infection. He has been tachypneic and tachycardic and hypoxic during the day today. He is receiving oxygen at 2 L per nasal cannula and maintaining his sats in the low 90s. He has had recent problems with his COPD and recurrent exacerbations. He receives Solu-Medrol this morning in the emergency department. He has been on DuoNebs every 8 hours. He was placed on ceftriaxone and azithromycin. Objective Objective Data Details: He is alert and in mild respiratory distress with increased rate and work of breathing. Blood pressure 119/61, pulse 101, respirations 34, temp 98.1?, O2 sat 91% on 2 L per nasal cannula. He has very poor air exchange in all lung cortes. Prolonged expiratory phase. No marked wheezing. Cardiovascular: S1, S2, regular rate and rhythm. Assessment and Plan Assessment and plan (1) COPD exacerbation: Problem comment: -oxygen supplementation to maintain saturations >88%, weaning as able -alternating DuoNebs and albuterol nebs -continue empiric azithromycin and ceftriaxone as initiated in the ED -prednisone 40 mg daily, received methylprednisolone x1 in the ED -incentive spirometry, aerobika -RT for pulmonary support Appears to be a fairly severe COPD exacerbation with fairly severe underlying disease. Monitor venous blood gas for possibility of CO2 retention. Increase DuoNebs and prednisone tonight Status: Acute (2) RSV (respiratory syncytial virus infection): Problem comment: -RSV+, COVID and influenza negative -respiratory support, symptomatic cares -RT support Status: Acute (3) Acute hypoxic respiratory failure: Problem comment: -oxygen saturations on room air reported by EMS in the 80s, initially placed on BiPAP. -in the setting of acute RSV and COPD exacerbation -CXR shows no pleural effusion or pneumothorax. Scattered areas of discoid atelectasis lung bases. Mild pleural thickening right lung laterally -VBG pH 7.346, pCO2 39, PO2 75 -no leukocytosis, lactate 1.1, BC x1 pending -D-dimer pending, CRP, procalcitonin ordered -consider further imaging with CT if new or worsening symptoms or no improvement -RT for pulmonary support Check venous blood gas for CO2 retention. Increased oxygen to 3 L per nasal cannula. Status: Acute Plan Additional dose of prednisone tonight, increased DuoNebs, check venous blood gas, may need BiPAP overnight if developing CO2 retention Total Time Spent Total Time Spent: Total time spent is 30 minutes in additional evaluation management today
[2024-07-30 19:43] LABS: HCO3 VBG 20 mmol/L (21-28); PCO2 VBG 32 mmHG (40-50); PO2 VBG 69.5 mmHG (25-47); pH VBG 7.401 (7.32-7.43)
[2024-07-30] MEDS: predniSONE 20 MG TABLET 40 MG PO (19:55)
[2024-07-30] MEDS: glipiZIDE 5 MG TABLET 10 MG PO (20:57)
[2024-07-30] MEDS: ENOXAPARIN 40 MG/0.4 ML INJ SUBCUT (20:57)
[2024-07-30] MEDS: SODIUM CHLORIDE 0.9 % (FLUSH) 10 ML SYRINGE 5 ML IVF (20:58)
[2024-07-31] VITALS (13 sets, daily range): BP systolic 112–152; BP diastolic 61–71; PULSE 92–112; RESP 22–36; TEMP 36.2–36.6; O2SAT 84–91
--- NOTE | 2024-07-31 | CRLHL7_ITS ---
For Patients: As a result of the Century Cures Act, medical imaging exams and procedure reports are released immediately into your electronic medical record. You may view this report before your referring provider. If you have questions, please contact your health care provider. INDICATION: Abdominal pain, vomiting. TECHNIQUE: CT abdomen and pelvis acquired with 95 cc Isovue 370 IV contrast. COMPARISON: None. FINDINGS: Lower chest: Please refer to same-day CT chest for further evaluation. Liver: Unremarkable. Normal in size and attenuation. No suspicious masses. Gallbladder and bile ducts: Unremarkable. No stones or inflammation. No biliary dilatation. Pancreas: Fatty atrophy. No mass or inflammation. Spleen: Unremarkable. Normal in size. No masses. Adrenal glands: Unremarkable. No nodules. Kidneys: Horseshoe kidney. No suspicious masses, stones, or hydronephrosis. GI tract: Moderately distended fluid-filled stomach. Additional multiple loops of mildly dilated proximal small bowel without definite transition point, but collapsed loops of distal small bowel. Moderate colonic stool burden. Colonic diverticulosis without diverticulitis. Normal in caliber. No sign of mass or inflammation. Normal appendix. Vasculature: Aortoiliac arterial calcifications. Abdominal aorta is normal in caliber. Mesenteric arteries are patent. Lymph nodes: No lymphadenopathy. Peritoneum/Abdominal Wall: Unremarkable. No sign of mass or infiltration. No free air or significant free fluid. Pelvis: Unremarkable. Bones: Age-indeterminate T12 compression deformity. Recommend correlation with point tenderness. IMPRESSION: Multiple loops of mildly dilated proximal small bowel without definite transition point, but with collapsed loops of distal small bowel, concerning for developing small bowel obstruction. Associated moderately distended fluid-filled stomach. Age-indeterminate T12 compression deformity. Recommend correlation with point tenderness. Additional chronic findings as above. Please note that all CT scans at this facility use dose modulation, iterative reconstruction, and/or weight-based dosing when appropriate to reduce radiation dose to as low as reasonably achievable. Dictated by Byron Land MD @ 07/31/2024 9:29:55 PM (Electronically Signed)
[2024-07-31] MEDS: IPRAT-ALBUT 0.5-2.5 MG/3 ML NEB 1 NEB IH ×4 (01:33→20:13)
[2024-07-31] MEDS: ALBUTEROL SULFATE 2.5 MG/3 ML VIAL.NEB NEB (05:45)
--- NOTE | 2024-07-31 06:37 | PC.NURSE ---
19-07: pleasant and cooperative. Exp wheezes auscultated in lung cortes. Scheduled nebs. Encouraging IS and Aerobika use. Titrated pt to 1L, O2 sats 88-91%. When pt stood?at bedside for weight, pt desat to low 80s and became SOB, pt was placed on 2L O2 via NC, rebounded quickly, however remained tachypneic for several mins, placed pt in tripod position. ?
[2024-07-31 06:40] LABS: HCO3 VBG 24 mmol/L (21-28); PCO2 VBG 41 mmHG (40-50); PO2 VBG 39.4 mmHG (25-47); pH VBG 7.367 (7.32-7.43)
[2024-07-31 06:52] LABS: Hematocrit 34.3 % (37.0-53.0); Hemoglobin* 11.1 gm/dL (13.5-17.5); Mean Corpuscular HGB Conc 32 gm/dL (32-36); Mean Corpuscular Hemoglobin 32 pg (26-34); Mean Corpuscular Volume 98 fL (80-100); Platelet Count* 107 K/uL (140-440); Red Blood Count 3.49 m/uL (4.30-5.90); White Blood Count* 4.24 K/uL (4.50-11.00)
[2024-07-31 06:59] LABS: Chloride* 101 mmol/L (96-114); Potassium* 3.8 mmol/L (3.6-5.1); Sodium* 134 mmol/L (135-149)
[2024-07-31 07:02] LABS: Creatinine* 1.7 mg/dL (0.5-1.5); Est. Creatinine Clearance* 32.84; Estimated Glomerular Filt Rate 41 ml/min
[2024-07-31 07:03] LABS: Anion Gap 12 mEq/L (7-15); Blood Urea Nitrogen* 30 mg/dL (7-30); Calcium* 8.7 mg/dL (8.4-10.6); Carbon Dioxide* 21 mmol/L (20-32); Glucose* 218 mg/dL (60-115); Magnesium* 2.7 mg/dL (1.5-2.6)
[2024-07-31 07:08] LABS: Slide Review Reflex No
[2024-07-31] MEDS: predniSONE 20 MG TABLET 40 MG PO (07:32)
[2024-07-31] MEDS: INSULIN ASPART 100 UNIT/ML SUBCUT ×3 (08:05→23:13)
[2024-07-31] MEDS: EMPAGLIFLOZIN 25 MG TABLET 12.5 MG PO (08:50)
[2024-07-31] MEDS: guaiFENesin 600 MG TAB.ER.12H 1200 MG PO (08:50)
[2024-07-31] MEDS: ASPIRIN 81 MG TABLET EC PO (08:50)
[2024-07-31] MEDS: AZITHROMYCIN 250 MG TABLET 500 MG PO (08:50)
[2024-07-31] MEDS: glipiZIDE 5 MG TABLET 10 MG PO (08:50)
[2024-07-31] MEDS: cefTRIAXone 1 GM in 0.9 % SODIUM CHLORIDE Mini-bag 100 ML IVPB (08:52)
[2024-07-31] MEDS: BUDESONIDE 0.5 MG/2ML NEB NEB ×2 (08:52→21:21)
[2024-07-31] MEDS: SODIUM CHLORIDE 0.9 % (FLUSH) 10 ML SYRINGE 5 ML IVF ×3 (09:30→21:21)
--- NOTE | 2024-07-31 11:04 | REH.PT ---
PT Orders received. Instructed to hold PT/OT at Med/Surg rounds this am due to respiratory status. Will eval when appropriate.
--- NOTE | 2024-07-31 13:04 | PM.IMPN1 ---
Progress Note: A&P Assessment and plan (1) Acute hypoxic respiratory failure: Problem details: -oxygen saturations on room air reported by EMS in the 80s, initially placed on BiPAP. -in the setting of acute RSV and COPD exacerbation -CXR shows no pleural effusion or pneumothorax. Scattered areas of discoid atelectasis lung bases. Mild pleural thickening right lung laterally -VBG pH 7.346, pCO2 39, PO2 75 -no leukocytosis, lactate 1.1, BC x1 pending -D-dimer 0.53, CRP 7.3, procalcitonin 0.28 -consider further imaging with CT if new or worsening symptoms or no improvement -RT for pulmonary support 07/31 - VBG pH 7.367, pCO2 41, PO2 39, HC03 24, BC NGTD, Sputum stain epithelial cells, strep pneumo/Legionella negative -RT has placed patient on high-flow Status: Acute (2) RSV (respiratory syncytial virus infection): Problem details: -RSV+, COVID and influenza negative -respiratory support, symptomatic cares -RT support -OT/PT when able for weakness Status: Acute (3) COPD exacerbation: Problem details: -oxygen supplementation to maintain saturations >88%, weaning as able -alternating DuoNebs and albuterol nebs, budesonide neb bid -continue empiric azithromycin and ceftriaxone as initiated in the ED -prednisone 40 mg daily, received methylprednisolone x1 in the ED -incentive spirometry, aerobika, mucinex -RT for pulmonary support Appears to be a fairly severe COPD exacerbation with fairly severe underlying disease. Monitor venous blood gas for possibility of CO2 retention. Increase DuoNebs and prednisone 07/30 Status: Acute (4) CKD stage 3b, GFR 30-44 ml/min: Problem details: -creatinine 1.6 -> 1.7, baseline 1.5-1.7 -avoid nephrotoxic medications, renally dose medications, monitor Status: Acute (5) Thrombocytopenia: Problem details: -chronic, currently 133 -> 107, previously 105-123. Monitor Status: Acute (6) Type 2 diabetes mellitus: Problem details: -most recent A1c 7.6 -continue glipizide, hold metformin -glucose checks ACHS, insulin sliding scale with tight glucose management while on steroids Status: Chronic (7) Multiple myeloma: Problem details: -continue lenalidomide dosing, using home supply -of note this medication does have pulmonary adverse effects which could be contributing to acute respiratory failure - monitor [facility] Status: Chronic Time Spent With Patient Total time spent: Total time spent caring for the patient today was 45 minutes. This includes time spent for the visit reviewing the chart, time spent during the visit, time spent after the visit and documentation and planning in coordination of care. Subjective Date Seen: 07/31/24 Interval history: Patient is seen sitting up in bed this morning. Remains tachypneic. Also remains very conversant. Reports chest congestion improving. Denies headache or dizziness. No new chest pain. Tolerating orals without nausea vomiting. Continues with IV antibiotics, oral prednisone, scheduled nebs, respiratory support. Exam Narrative: Exam Narrative: PHYSICAL EXAM General: Pleasant, remains very talkative despite dyspnea, NAD Cardiovascular: RRR, S1S2. No pitting edema Pulmonary: Diminished breath sounds throughout, coarse, increased expiratory wheezes, dyspnea with halting speech Abdominal: Soft, obese, nondistended, NTTP Neurological: Alert, answering questions appropriately, cranial nerves intact, no focal findings Extremities: No gross joint deformity or swelling. AROMI. Neurovascularly intact Skin: Warm, dry. Const: Vital Signs, click to edit/add: Vital Signs - 24 hr 07/30/24 15:25 07/30/24 15:25 07/30/24 18:13 Temperature 98.1 F Pulse Rate 101 H Pulse Rate [Pulse Oximeter] 100 100 Respiratory Rate 34 H 34 H Blood Pressure [Le ft Arm] 119/61 Pulse Oximetry 91 Oxygen Delivery Me thod Nasal Cannula Oxygen Flow Rate 2 Fraction of Inspir ed Oxygen 07/30/24 19:12 07/30/24 19:55 07/30/24 21:38 Temperature 98.3 F Pulse Rate Pulse Rate [Pulse Oximeter] 108 H 99 Respiratory Rate 34 H 26 H Blood Pressure [Le ft Arm] 129/66 Pulse Oximetry 94 91 Oxygen Delivery Me thod Nasal Cannula Nasal Cannula Oxygen Flow Rate 3.5 1 Fraction of Inspir ed Oxygen 07/30/24 22:32 07/30/24 22:42 07/30/24 22:46 Temperature 97.6 F Pulse Rate 99 Pulse Rate [Pulse Oximeter] 99 99 Respiratory Rate 24 24 Blood Pressure [Le ft Arm] 113/65 Pulse Oximetry 91 Oxygen Delivery Me thod Nasal Cannula Oxygen Flow Rate 1.5 Fraction of Inspir ed Oxygen 07/31/24 04:00 07/31/24 06:00 07/31/24 06:16 Temperature 97.5 F L Pulse Rate Pulse Rate [Pulse Oximeter] 102 H 96 Respiratory Rate 24 Blood Pressure [Le ft Arm] 149/62 H Pulse Oximetry 91 85 L 90 Oxygen Delivery Me thod Room Air Room Air Nasal Cannula Oxygen Flow Rate 1 Fraction of Inspir ed Oxygen 07/31/24 07:20 07/31/24 08:02 07/31/24 08:02 Temperature 97.6 F Pulse Rate 92 Pulse Rate [Pulse Oximeter] 112 H Respiratory Rate 36 H Blood Pressure [Le ft Arm] 128/62 Pulse Oximetry 90 90 Oxygen Delivery Me thod Nasal Cannula Oxygen Flow Rate 1 Fraction of Inspir ed Oxygen 07/31/24 11:22 07/31/24 11:38 Temperature 97.8 F Pulse Rate Pulse Rate [Pulse Oximeter] 103 H Respiratory Rate 28 H Blood Pressure [Le ft Arm] 128/63 Pulse Oximetry 90 Oxygen Delivery Me thod High Flow Nasal Ca nnula Oxygen Flow Rate 30 Fraction of Inspir ed Oxygen 25 Labs Labs: Laboratory Results - last 24 hr 07/30/24 07/30/24 07/31/24 06:52 19:29 06:05 WBC 4.24 L RBC 3.49 L Hgb 11.1 L Hct 34.3 L MCV 98 MCH 32 MCHC 32 Plt Count 107 L D-Dimer Quant (PE/DVT) 0.53 H VBG pH 7.401 7.367 VBG pCO2 32 L 41 VBG pO2 69.5 H 39.4 VBG HCO3 20 L 24 Sodium 134 L Potassium 3.8 Chloride 101 Carbon Dioxide 21 Anion Gap 12 BUN 30 Creatinine 1.7 H Estimated Creat Clear 32.84 Estimated GFR 41 Glucose 218 H Calcium 8.7 Magnesium 2.7 H C-Reactive Protein 6.0 H
--- NOTE | 2024-07-31 14:20 | PC.NURSE ---
Patient initially on 1L/NC this morning. O2 sat % decreased to low 70s ambulating to BR (approximately 15 feet). Pt. was also tachypneic and diaphoretic. Provider - Karyna Lindo and RT - K. Read notified. Hi-Flow Oxygen initiated by RT. Pt's sats have been 88-92% on 30 L, 25%.
[2024-07-31] MEDS: ACETAMINOPHEN 325 MG TABLET PO (17:42)
[2024-07-31] MEDS: MORPHINE 2 MG/ML inj IVP ×2 (19:04→20:43)
[2024-07-31] MEDS: ONDANSETRON 2 MG/ML inj 4 MG IVP (19:06)
[2024-07-31 19:27] LABS: HCO3 VBG 30 mmol/L (21-28); PCO2 VBG 41 mmHG (40-50); PO2 VBG 42.4 mmHG (25-47); pH VBG 7.474 (7.32-7.43)
[2024-07-31 20:02] LABS: Troponin I* 0.02 ng/mL (0.01-0.04)
[2024-07-31 20:07] LABS: D Dimer Quantitative* 0.31 ug/ml (0.00-0.50)
--- NOTE | 2024-07-31 20:07 | CRLHL7_ITS ---
For Patients: As a result of the Century Cures Act, medical imaging exams and procedure reports are released immediately into your electronic medical record. You may view this report before your referring provider. If you have questions, please contact your health care provider. INDICATION: Chest pain, hypoxia. TECHNIQUE: CT chest PE was acquired with 95 cc Isovue 370 IV contrast. MIP reconstructions were performed. COMPARISON: None. FINDINGS: Heart and vasculature: Contrast opacification of the pulmonary arterial tree is adequate. No sign of pulmonary embolism. Mild cardiomegaly. Coronary artery calcifications. Thoracic aorta and pulmonary artery are normal in caliber. Lungs and pleura: Scattered peribronchial thickening with bibasilar tree-in-bud nodularity. No suspicious nodules or infiltrates. No pleural effusions, pleural thickening, or pneumothorax. Lymph nodes/mediastinum: No mediastinal, hilar, or axillary adenopathy. Chest wall: No masses. Upper abdomen: Please refer to same-day CT abdomen/pelvis for further evaluation. Bones: Redemonstration of indeterminate right anterolateral 6th rib deformity, also seen on prior chest x-ray performed November 18, 2021. Subacute appearing right 3rd, 4th, 5th, 6th anterolateral nondisplaced rib fractures. Age-indeterminate L1 compression deformity. IMPRESSION: No pulmonary embolism as questioned. Scattered peribronchial thickening with bibasilar tree-in-bud nodularity, likely infectious/inflammatory in etiology, including bronchitis or aspiration in the appropriate clinical setting. No focal consolidations. Redemonstration of indeterminate right anterolateral 6th rib deformity, also seen on prior chest x-ray performed November 18, 2021 of uncertain clinical significance. Recommend correlation with physical examination and prior cross-sectional imaging if available.. Subacute appearing right 3rd, 4th, 5th, 6th anterolateral nondisplaced rib fractures (including involvement of indeterminate right 6 rib deformity). Please note that all CT scans at this facility use dose modulation, iterative reconstruction, and/or weight-based dosing when appropriate to reduce radiation dose to as low as reasonably achievable. Dictated by Byron Land MD @ 07/31/2024 9:20:49 PM (Electronically Signed)
--- NOTE | 2024-07-31 20:13 | PC.NURSE ---
End of shift [id number] - RN took over pt care at approximately 1500. Pt not up during shift, able to use urinal at bedside. Tolerating high flow, able to maintain oxygenation at 88-92% per order while at rest. Observed to desaturate to low 80%'s with little exertion and required lengthy recovery period. Denied pain at start of care, then reported having a headache. Medication given with pt no longer reporting headache. Pt report of pain changed to everywhere and he was observed to be tachypneic with O2 saturation in the low 80%'s and reported nausea. MD notified, new orders for medication given. Bedside EKG performed per MD order. Pt behavior indicated improved comfort, however pt report maintains that he feels pain everywhere. FiO2 adjusted per RT oder to improve O2 saturation. Call ligth within reach and family at bedside .
[2024-07-31] MEDS: PROCHLORPERAZINE 5 MG/ML VIAL IV (20:28)
--- NOTE | 2024-07-31 21:14 | CRLHL7_ITS ---
For Patients: As a result of the Century Cures Act, medical imaging exams and procedure reports are released immediately into your electronic medical record. You may view this report before your referring provider. If you have questions, please contact your health care provider. INDICATION: NG tube placement. TECHNIQUE: Chest 1 view. COMPARISON: CT chest from the same day. FINDINGS/IMPRESSION: Lines and tubes: Interval placement of an enteric tube with the tip and side-port in the stomach fundus. Cardiovascular and mediastinum: Heart size and vasculature are normal in caliber and appearance. Lungs and pleural spaces: No focal consolidation, pleural effusion, or pneumothorax. Bones and soft tissues: Redemonstrated irregular masslike sclerotic lesion within the right lateral 6th rib, better characterized on the same-day chest CT. Dictated by Estuardo Morel MD @ 07/31/2024 10:30:45 PM (Electronically Signed)
[2024-07-31] MEDS: ENOXAPARIN 40 MG/0.4 ML INJ SUBCUT (21:21)
[2024-07-31 22:40] LABS: Basophils Absolute Auto 0.01 K/uL (0.00-0.30); Basophils Percent Auto 0.1 % (0.0-3.0); Eosinophils Absolute Auto 0.01 K/uL (0.00-0.50); Eosinophils Percent Auto 0.1 % (0.0-7.0); Hematocrit 35.5 % (37.0-53.0); Hemoglobin* 11.4 gm/dL (13.5-17.5); Immature Granulocytes Abs Auto 0.04 K/uL (0.00-0.30); Immature Granulocytes Pct Auto 0.5 %; Lymphocytes Percent Auto 4.6 % (20-44); Mean Corpuscular HGB Conc 32 gm/dL (32-36); Mean Corpuscular Hemoglobin 32 pg (26-34); Mean Corpuscular Volume 98 fL (80-100); Neutrophils Percent Auto 88.7 % (42.0-72.0); Platelet Count* 126 K/uL (140-440); RDW Coefficient of Variation % 16.5 % (11.5-15.5); Red Blood Count 3.61 m/uL (4.30-5.90)
[2024-07-31] MEDS: 0.9 % SODIUM CH + KCL 20 mEq/L 1,000 ML 125 ML IV (22:44)
[2024-07-31 22:49] LABS: Slide Review Reflex No
--- NOTE | 2024-07-31 23:01 | P.CCN_ITS ---
Subjective Subjective Date Seen: 07/31/24 Principal diagnosis: RSV, COPD Interval history: 78-year-old male with COPD admitted to the hospital with hypoxic respiratory failure and RSV infection. Today he was complaining of abdominal and chest pain and worsening breathing. He had an emesis that appeared to be black. CT chest abdomen pelvis is obtained. Most notable for finding a small bowel obstruction with a very large distended stomach. NG tube was placed and immediately 1 L of this black gastric fluid was taken off. There also appeared to be very dark maroon tinged color. He felt much better with his pain and breathing after the NG tube was placed. EKG was unchanged. Troponin was 0.02. Hemoglobin was 11.4 and stable. Venous blood gas was also stable. Objective Objective Data Details: Initial exam he was in moderate distress with pain and also respiratory distress with tachypnea and increased work of breathing on high-flow oxygen. Respirat ions were relatively clear in the anterior chest but he still has expiratory wheezing posteriorly. Fair air exchange all lung cortes. Occasional rhonchi noted. Cardiovascular: Distant S1-S2 regular tachycardia. Abdomen diminished breath sounds and distended abdomen with mild diffuse tenderness Assessment and Plan Assessment and plan (1) Small bowel obstruction: Problem comment: He has had previous umbilical hernia repair. No other abdominal surgeries. NG tube, and surgical consult Status: Acute (2) Upper GI bleeding: Problem comment: Monitor serial hemoglobins, vital signs, Protonix, stop aspirin and enoxaparin, EGD Status: Acute (3) Acute hypoxic respiratory failure: Problem comment: Due to underlying severe COPD with RSV infection. Improved with NG suctioning reducing gastric distension. On high-flow nasal cannula oxygen, antibiotics, bronchodilators and steroids. Status: Acute (4) RSV (respiratory syncytial virus infection): Problem comment: -RSV+, COVID and influenza negative -respiratory support, symptomatic cares -RT support -OT/PT when able for weakness Status: Acute (5) COPD exacerbation: Problem comment: -oxygen supplementation to maintain saturations >88%, weaning as able -alternating DuoNebs and albuterol nebs, budesonide neb bid -continue empiric azithromycin and ceftriaxone as initiated in the ED -prednisone 40 mg daily, received methylprednisolone x1 in the ED -incentive spirometry, aerobika, mucinex -RT for pulmonary support Appears to be a fairly severe COPD exacerbation with fairly severe underlying disease. Monitor venous blood gas for possibility of CO2 retention. Increase DuoNebs and prednisone 07/30 Status: Acute (6) Lytic lesion of bone on x-ray: Problem comment: Right 6th rib. Likely multiple myeloma. Status: Acute Plan Continue in CCU for close monitoring of above medical problems. Total time spent this evening is 100 minutes in critical care evaluation and management. Also discussed with patient and daughters and other providers plan of care for this critical illness
[2024-07-31] MEDS: PANTOPRAZOLE SODIUM 40 MG INJ 80 MG IVP (23:07)
[2024-08-01] VITALS (33 sets, daily range): BP systolic 99–156; BP diastolic 50–80; PULSE 101–111; RESP 20–32; TEMP 36.5–37.1; O2SAT 84–96
[2024-08-01] MEDS: IPRAT-ALBUT 0.5-2.5 MG/3 ML NEB 1 NEB IH ×4 (01:14→19:49)
[2024-08-01] MEDS: ALBUTEROL SULFATE 2.5 MG/3 ML VIAL.NEB NEB (05:58)
[2024-08-01] MEDS: 0.9 % SODIUM CH + KCL 20 mEq/L 1,000 ML 125 ML IV ×2 (06:03→19:26)
[2024-08-01 06:26] LABS: Lactate* 1.4 mmol/L (0.5-1.9)
[2024-08-01 06:39] LABS: Hematocrit 32.8 % (37.0-53.0); Hemoglobin* 10.3 gm/dL (13.5-17.5); Mean Corpuscular HGB Conc 31 gm/dL (32-36); Mean Corpuscular Hemoglobin 32 pg (26-34); Mean Corpuscular Volume 101 fL (80-100); Platelet Count* 120 K/uL (140-440); Red Blood Count 3.26 m/uL (4.30-5.90); White Blood Count* 6.51 K/uL (4.50-11.00)
[2024-08-01 06:41] LABS: HCO3 VBG 30 mmol/L (21-28); PCO2 VBG 51 mmHG (40-50); PO2 VBG 45.1 mmHG (25-47); pH VBG 7.384 (7.32-7.43)
[2024-08-01 06:44] LABS: Slide Review Reflex No
[2024-08-01 06:51] LABS: Chloride* 104 mmol/L (96-114)
[2024-08-01 06:52] LABS: Sodium* 141 mmol/L (135-149)
[2024-08-01 06:54] LABS: Creatinine* 1.9 mg/dL (0.5-1.5); Est. Creatinine Clearance* 29.38; Estimated Glomerular Filt Rate 36 ml/min
[2024-08-01 06:55] LABS: Anion Gap 7 mEq/L (7-15); Blood Urea Nitrogen* 41 mg/dL (7-30); Calcium* 8.8 mg/dL (8.4-10.6); Carbon Dioxide* 30 mmol/L (20-32); Glucose* 153 mg/dL (60-115); Potassium* 4.3 mmol/L (3.6-5.1)
[2024-08-01 06:58] LABS: C Reactive Protein* 2.9 mg/dL (0.5-1.0)
--- NOTE | 2024-08-01 07:01 | PC.NURSE ---
End of shift [id number]: Upon initial assessment pt was groaning and restless. Reports chest and abd pain. O2 sats were low 80s and pt visibly tachypneic. HR in low 100s and BP stable. Shortly after initial assessment pt had x1 small coffee ground emesis. See eMAR for interventions. MD updated. See orders. Abdomen visibly distended and hard. BS hypoactive in right lower quadrant. NG placed per orders. 1L of coffee ground output initially from NG. NG placed 67 at the nares to LIS. Pt reports decreased pain. RR 20-24. Pt now able to sleep. Highflow in place. Sats 88-91% at rest. Daughter at bedside. Using urinal in bed. Using call light appropriately.
[2024-08-01 07:03] LABS: Troponin I* 0.03 ng/mL (0.01-0.04)
--- NOTE | 2024-08-01 07:19 | PM.GSCN ---
History of Present Illness Consult details Date Seen: 08/01/24 Consult date: 08/01/24 Narrative: The patient is a 71-year-old male with a history of multiple myeloma, currently on lenalidomide, diabetes type 2, his COPD, he was admitted to the hospital on 07/30/2024 with shortness of breath and weakness. He was noted to be hypoxic and tachypneic. He does not take: Oxygen but he does monitor his oxygen at home with an oximeter. He reported pain from a rib fracture after a fall 2 weeks ago. He had a bowel movement at home before admission. He was found to have RSV and was admitted for empiric antibiotics, high-flow oxygen, prednisone burst, respiratory therapy care and Tamiflu. Yesterday he developed severe upper abdominal and chest pain. Initially this was thought to be secondary to his rib fractures, however he states that the pain was so bad that he felt like he was going to . He was very short of breath when he got up to the bathroom. He vomited blood yesterday. Workup revealed a markedly distended stomach and possibly bowel obstruction without clear transition point. NG tube was placed. He had return of bloody fluid, 1300 mL came out. He states that he has been passing gas since he was admitted but his last bowel movement was last Sunday. He has a history of umbilical hernia repair but no other abdominal surgeries. Currently denies nausea. [facility] Medical History (Updated 07/31/24 @ 23:11 by Ayden Shabazz MD) Lytic lesion of bone on x-ray ?M89.8X9 - Other specified disorders of bone, unspecified site (ICD-10) Upper GI bleeding ?K92.2 - Gastrointestinal hemorrhage, unspecified (ICD-10) CKD stage 3b, GFR 30-44 ml/min ?N18.32 - Chronic kidney disease, stage 3b (ICD-10) Thrombocytopenia ?D69.6 - Thrombocytopenia, unspecified (ICD-10) Productive cough ?R05.8 - Other specified cough (ICD-10) Family History Son Myocardial infarction Social History What is your current living situation?: I presently have a place to live Problems where you live: no known problems Problems where you live details: N/A In the past 12 months, utilities in danger of being shut off: no In past 12 months, lack of transportation kept you from medical appts, meetings, work, or getting things needed for daily living: no In the past 12 mos, have been you worried that your food would run out before you had money to buy more?: never true In the past 12 mos, the food you bought just didn't last and you didn't have money to buy more?: never true Smoking Status: Never smoker Do you use any of these nicotine containing products: None How often do you have a drink containing alcohol: never How often do you have six or more drinks on one occasion: Never AUDIT-C Alcohol total score: 0 Non-prescribed substance use: denies use Caffeine: Yes How often does anyone, including family, friends and others, physically hurt you: never How often does anyone, including family, friends and others, insult or talk down to you: never How often does anyone, including family, friends and others, threaten you with harm: never How often does anyone, including family, friends and others, scream or curse at you: never service: No Meds Home Medications and Allergies Home Medications ?Medication ?Instructions ?Recorded ?Confirmed ?Type ascorbic acid (vitamin C) 500 mg 500 mg PO DAILY 07/20/23 07/30/24 History capsule aspirin 81 mg tablet,delayed 81 mg PO DAILY 07/20/23 07/30/24 History release cholecalciferol (vitamin D3) 25 25 mcg PO DAILY 07/20/23 07/30/24 History mcg (1,000 unit) capsule dexamethasone 4 mg tablet 20 mg PO QWEEK 07/20/23 07/30/24 History diclofenac sodium 1 % topical gel 4 g topical QID 07/20/23 07/30/24 History (Aleve (diclofenac)) lenalidomide 10 mg capsule 10 mg PO DAILY 07/20/23 07/30/24 History metformin 1,000 mg tablet 1,000 mg PO DAILY 07/20/23 07/30/24 History omega 4-suz-eta-fish oil 1,000 mg 1 cap PO BID 07/20/23 07/30/24 History (120 mg-180 mg) capsule (Fish Oil) empagliflozin 25 mg tablet 12.5 mg PO DAILY 07/30/24 07/30/24 History glipizide 10 mg tablet 10 mg PO BID 07/30/24 07/30/24 History magnesium oxide 400 mg PO DAILY 07/30/24 07/30/24 History mometasone 100 mcg/actuation HFA 2 inh inhalation BID 07/30/24 07/30/24 History aerosol inhaler olodaterol 2.5 mcg/actuation mist 2 inh inhalation DAILY 07/30/24 07/30/24 History for inhalation Allergies Allergy/AdvReac Type Severity Reaction Status Date / Time No Known Drug Allergies Allergy Verified 06/17/24 13:49 Exam Narrative: Exam Narrative: General appearance: Alert, cooperative, and in no distress Eyes: PERRLA, eye lids clear, and sclera white HENT Pulmonary: Patient is tachypneic and short of breath appearing on high-flow nasal cannula Cardiovascular Heart: Tachycardic. Extremities: warm and well perfused Gastrointestinal Abdominal: Protuberant. Abdomen is nontender. It is soft. He has chronic redness and palpable mesh/ suture material from his prior hernia repair. There is no drainage noted. Skin: Normal skin color, texture, and turgor. Neurologic: No focal deficits Psychiatric: Alert, oriented, cooperative, normal affect. Const: Vital Signs, click to edit/add: Vital Signs - 24 hr 07/31/24 07:20 07/31/24 08:02 07/31/24 08:02 Temperature 97.6 F Pulse Rate 92 Pulse Rate [Pulse Oximeter] 112 H Respiratory Rate 36 H Blood Pressure [Le ft Arm] 128/62 Pulse Oximetry 90 90 Oxygen Delivery Me thod Nasal Cannula Oxygen Flow Rate 1 Fraction of Inspir ed Oxygen 07/31/24 11:22 07/31/24 11:38 07/31/24 14:05 Temperature 97.8 F Pulse Rate Pulse Rate [Pulse Oximeter] 103 H Respiratory Rate 28 H Blood Pressure [Le ft Arm] 128/63 Pulse Oximetry 90 Oxygen Delivery Me thod High Flow Nasal Ca nnula Oxygen Flow Rate 30 Fraction of Inspir ed Oxygen 25 07/31/24 17:48 07/31/24 17:48 07/31/24 17:48 Temperature 97.9 F Pulse Rate Pulse Rate [Pulse Oximeter] 107 H Respiratory Rate 24 Blood Pressure [Le ft Arm] 152/71 H Pulse Oximetry 87 L 88 Oxygen Delivery Me thod High Flow Nasal Ca nnula Oxygen Flow Rate Fraction of Inspir ed Oxygen 25 07/31/24 19:13 07/31/24 19:15 07/31/24 21:00 Temperature 97.2 F L Pulse Rate Pulse Rate [Pulse Oximeter] 105 H Respiratory Rate 28 H Blood Pressure [Le ft Arm] 148/64 H Pulse Oximetry 84 L Oxygen Delivery Me thod High Flow Nasal Ca nnula Oxygen Flow Rate 30 Fraction of Inspir ed Oxygen 28 28 28 07/31/24 22:51 07/31/24 23:00 07/31/24 23:00 Temperature 97.5 F L Pulse Rate 103 H Pulse Rate [Pulse Oximeter] 108 H Respiratory Rate 22 Blood Pressure [Le ft Arm] 112/61 Pulse Oximetry 90 90 Oxygen Delivery Me thod High Flow Nasal Ca nnula Oxygen Flow Rate 30 Fraction of Inspir ed Oxygen 28 08/01/24 00:00 08/01/24 00:00 08/01/24 00:02 Temperature Pulse Rate Pulse Rate [Pulse Oximeter] 103 H Respiratory Rate 22 Blood Pressure [Le ft Arm] 107/54 L Pulse Oximetry 91 Oxygen Delivery Me thod High Flow Nasal Ca nnula Oxygen Flow Rate 30 Fraction of Inspir ed Oxygen 28 26 08/01/24 00:09 08/01/24 02:00 08/01/24 02:00 Temperature 98.7 F Pulse Rate Pulse Rate [Pulse Oximeter] 102 H 107 H Respiratory Rate 24 Blood Pressure [Le ft Arm] 115/58 L Pulse Oximetry 91 Oxygen Delivery Me thod High Flow Nasal Ca nnula Oxygen Flow Rate 30 Fraction of Inspir ed Oxygen 26 26 08/01/24 04:01 08/01/24 04:04 08/01/24 06:00 Temperature 98.8 F Pulse Rate Pulse Rate [Pulse Oximeter] 104 H 107 H Respiratory Rate 20 22 Blood Pressure [Le ft Arm] 119/61 99/76 Pulse Oximetry 91 90 Oxygen Delivery Me thod High Flow Nasal Ca nnula High Flow Nasal Ca nnula Oxygen Flow Rate 30 30 Fraction of Inspir ed Oxygen 26 26 26 08/01/24 06:00 08/01/24 06:55 08/01/24 06:56 Temperature Pulse Rate Pulse Rate [Pulse Oximeter] Respiratory Rate Blood Pressure [Le ft Arm] Pulse Oximetry Oxygen Delivery Me thod Oxygen Flow Rate Fraction of Inspir ed Oxygen 26 26 28 Results Labs Labs: Abnormal lab results 07/31/24 07/31/24 08/01/24 Range/Units 19:22 22:09 06:03 RBC 3.61 L 3.26 L (4.30-5.90) m/uL Hgb 11.4 L 10.3 L (13.5-17.5) gm/dL Hct 35.5 L 32.8 L (37.0-53.0) % MCV 101 H (80-100) fL MCHC 31 L (32-36) gm/dL RDW Coeff of Shantell 16.5 H (11.5-15.5) % Plt Count 126 L 120 L (140-440) K/uL Neut % (Auto) 88.7 H (42.0-72.0) % Lymph % (Auto) 4.6 L (20-44) % Neut # (Auto) 7.30 H (1.7-7.0) K/uL Lymph # (Auto) 0.40 L (0.90-2.90) K/uL VBG pH 7.474 H (7.32-7.43) VBG pCO2 51 H (40-50) mmHG VBG HCO3 30 H 30 H (21-28) mmol/L All other labs normal. Imaging Chest x-ray: report reviewed and image reviewed Additional studies: CT abdomen/pelvis IMPRESSION: Multiple loops of mildly dilated proximal small bowel without definite transition point, but with collapsed loops of distal small bowel, concerning for developing small bowel obstruction. Associated moderately distended fluid-filled stomach. Age-indeterminate T12 compression deformity. Recommend correlation with point tenderness. Additional chronic findings as above. Dictated by Byron Land MD @ 07/31/2024 9:29:55 PM Chest X-ray FINDINGS/IMPRESSION: Lines and tubes: Interval placement of an enteric tube with the tip and side-port in the stomach fundus. Cardiovascular and mediastinum: Heart size and vasculature are normal in caliber and appearance. Lungs and pleural spaces: No focal consolidation, pleural effusion, or pneumothorax. Bones and soft tissues: Redemonstrated irregular masslike sclerotic lesion within the right lateral 6th rib, better characterized on the same-day chest CT. Dictated by Estuardo Morel MD @ 07/31/2024 10:30:[address] Chest PE; IMPRESSION: No pulmonary embolism as questioned. Scattered peribronchial thickening with bibasilar tree-in-bud nodularity, likely infectious/inflammatory in etiology, including bronchitis or aspiration in the appropriate clinical setting. No focal consolidations. Redemonstration of indeterminate right anterolateral 6th rib deformity, also seen on prior chest x-ray performed November 18, 2021 of uncertain clinical significance. Recommend correlation with physical examination and prior cross-sectional imaging if available.. Subacute appearing right 3rd, 4th, 5th, 6th anterolateral nondisplaced rib fractures (including involvement of indeterminate right 6 rib deformity). Dictated by Byron Land MD @ 07/31/2024 9:20:49 PM ----- ADDENDUM ----- Addendum: Age-indeterminate T12 compression deformity. Recommend correlation with point tenderness. Dictated by Byron Land MD @ Jul 31 2024 9:32PM Progress Note:A&P Assessment and plan (1) Upper GI bleeding: Status: Acute (2) Small bowel obstruction: Status: Acute (3) CKD stage 3b, GFR 30-44 ml/min: Status: Acute (4) Thrombocytopenia: Status: Acute Plan The patient is a 78-year-old male with RSV infection, COPD with acute hypoxic respiratory failure and what appears to be a GI bleed as well as possible small bowel obstruction versus ileus secondary to acute illness -regarding bowel obstruction. I spoke with the patient and his daughter and I recommended conservative management with NG tube. The patient has been passing gas and since there is no clear transition point on imaging I suspect possibly a partial obstruction. Pylorus appears to be open on imaging and duodenum and proximal jejunum is dilated, therefore I do not believe this to be gastric outlet obstruction. Could have some component of delayed gastric emptying secondary to gastroparesis from diabetes. -obvious bloody gastric contents coming from NG tube. Patient also has a slow hemoglobin drift. Unfortunately with his respiratory status I think he is too high risk for EGD without intubation and he likely would not be able to get extubated. Therefore, I agree with the plan to hold Lovenox and start double strength PPI. Have assessed NG tube to assure that is in appropriate position. If patient has ongoing bleeding would recommend transfer to tertiary care facility. -consider holding antineoplastic agents. Likely will not have any meaningful improvement in thrombocytopenia during this hospital stay, however may help with bleeding risk. Consider discussion with Oncology. -I discussed the plan with the patient and his daughter. Will continue to follow along.
--- NOTE | 2024-08-01 09:09 | NUTR.NU ---
RDN with nutrition screen related to cancer treatment. Patient admitted for RSV, possible partial SBO and GI bleed. Past medical history includes multiple myeloma, [facility]. Current weight 199 lb 5oz; height 5ft 6in; BMI 32.2 kg/m2. Weight has been stable recently. Diet order is currently NPO. Meal intakes since admit yesterday were 75-100%. No nutrition interventions at this time due to current diet order and stable weight. Per MD, patient may need to transfer. RDN will continue to monitor and follow-up prn.
--- NOTE | 2024-08-01 09:24 | REH.OT ---
OT/PT have orders, however will hold today due to medical status.
[2024-08-01] MEDS: cefTRIAXone 1 GM in 0.9 % SODIUM CHLORIDE Mini-bag 100 ML IVPB (09:26)
[2024-08-01] MEDS: BUDESONIDE 0.5 MG/2ML NEB NEB ×2 (09:26→09:27)
[2024-08-01] MEDS: PANTOPRAZOLE SODIUM 40 MG INJ IVP ×2 (09:27→21:14)
[2024-08-01] MEDS: SODIUM CHLORIDE 0.9 % (FLUSH) 10 ML SYRINGE 5 ML IVF ×2 (09:28→21:14)
[2024-08-01] MEDS: AZITHROMYCIN 500 MG in 0.9 % SODIUM CHLORIDE 250 ml 250 ML 255 MG IVPB (10:19)
--- NOTE | 2024-08-01 11:31 | P.IMPN_ITS ---
Progress Note: A&P Assessment and plan (1) Acute hypoxic respiratory failure: Problem details: -oxygen saturations on room air reported by EMS in the 80s, initially placed on BiPAP. -in the setting of acute RSV and COPD exacerbation -CXR shows no pleural effusion or pneumothorax. Scattered areas of discoid atelectasis lung bases. Mild pleural thickening right lung laterally -VBG pH 7.346, pCO2 39, PO2 75 -no leukocytosis, lactate 1.1, BC x1 pending -D-dimer 0.53, CRP 7.3, procalcitonin 0.28 -consider further imaging with CT if new or worsening symptoms or no improvement -RT for pulmonary support 07/31: Due to underlying severe COPD with RSV infection. Improved with NG suctioning reducing gastric distension. On high-flow nasal cannula oxygen, antibiotics, bronchodilators and steroids. 08/01: No significant improvement, continues to be quite tachypneic despite therapies as below. Discussed with patient and family transferring to tertiary hospice for higher level care, in agreement. [facility]. Aware he will be transferred to [facility]. Discussed with Dr. Froylan Kim, lipcoat sprayer at [facility]. Accepts for transfer. Awaiting bed availability >8 hours. Status: Acute (2) RSV (respiratory syncytial virus infection): Problem details: -RSV+, COVID and influenza negative -respiratory support, symptomatic cares -RT support -OT/PT when able for weakness Status: Acute (3) COPD exacerbation: Problem details: -oxygen supplementation to maintain saturations >88%, weaning as able -alternating DuoNebs and albuterol nebs, budesonide neb bid -continue empiric azithromycin and ceftriaxone as initiated in the ED -prednisone 40 mg daily, received methylprednisolone x1 in the ED -incentive spirometry, aerobika, mucinex -RT for pulmonary support Appears to be a fairly severe COPD exacerbation with fairly severe underlying disease. Monitor venous blood gas for possibility of CO2 retention. Increase DuoNebs and prednisone 07/30 08/01: Discussed with RT E and lipcoat sprayer, query BiPAP, not recommended at this time, continue with high-flow Status: Acute (4) CKD stage 3b, GFR 30-44 ml/min: Problem details: -creatinine 1.6 -> 1.7 -> 1.9, baseline 1.5-1.7 -avoid nephrotoxic medications, renally dose medications, monitor Status: Acute (5) Thrombocytopenia: Problem details: -chronic, currently 133 -> 107 ->120, previously 105-123. Monitor Status: Acute (6) Type 2 diabetes mellitus: Problem details: -most recent A1c 7.6 -continue glipizide, hold metformin -glucose checks ACHS, insulin sliding scale with tight glucose management while on steroids Status: Chronic (7) Multiple myeloma: Problem details: -continue lenalidomide dosing, using home supply - HOLD -of note this medication does have pulmonary adverse effects which could be contributing to acute respiratory failure - monitor -[facility] Status: Chronic (8) Upper GI bleeding: Problem details: No known history of ulcers. Denies daily alcohol use, occasional binges. Monitor serial hemoglobins, vital signs, Protonix IV b.i.d., stop aspirin and enoxaparin, SCDs for VTE PPX -EGD - not stable enough to be completed at this point -hemoglobin 12.4 ->11.1 -> 11.4 -> 10.3 -> 10.2 -next check at 6:00 p.m. Status: Acute (9) Lytic lesion of bone on x-ray: Problem details: Right 6th rib. Likely multiple myeloma. rib fractures 3-6 following fall 2 weeks ago, hospitalized at [place] [facility] Status: Acute Plan Plan to transfer to [facility] or accepting facility for higher level care. Awaiting bed availability, >8 hours currently. Time Spent With Patient Total time spent: Total time spent caring for the patient today was 90 minutes. This includes time spent for the visit reviewing the chart, time spent during the visit, time spent after the visit and documentation and planning in coordination of care. Subjective Date Seen: 08/02/24 Interval history: Patient is seen with daughter's and friend at bedside. Continues to be tachypneic, tachycardic. Afebrile. He tells me he is feeling better but he appears to still be working at breathing. Continues to be very talkative despite this. No headache or dizziness. Denies chest pain. No abdominal pain. NGT remains in place. Exam Narrative: Exam Narrative: PHYSICAL EXAM General: Remains pleasant and conversant, still quite tachypneic Cardiovascular: Mildly tachycardic Pulmonary: Diminished breath sounds throughout, coarse, increased expiratory wheezes, dyspnea with halting speech Abdominal: Soft, obese, nondistended, NTTP. NGT in place, dark bloody output Neurological: Alert, answering questions appropriately, cranial nerves intact, no focal findings Extremities: No gross joint deformity or swelling. AROMI. Neurovascularly intact Skin: Warm, dry. Const: Vital Signs, click to edit/add: Vital Signs - 24 hr 08/01/24 12:00 08/01/24 12:00 08/01/24 12:01 Temperature Pulse Rate 107 H 106 H Pulse Rate [Pulse Oximeter] Respiratory Rate Blood Pressure 126/72 Blood Pressure [Le ft Arm] Pulse Oximetry 87 L 88 Oxygen Delivery Me thod Oxygen Flow Rate Fraction of Inspir ed Oxygen 35 08/01/24 12:02 08/01/24 13:00 08/01/24 14:00 Temperature Pulse Rate 101 H 104 H Pulse Rate [Pulse Oximeter] Respiratory Rate Blood Pressure Blood Pressure [Le ft Arm] Pulse Oximetry 90 93 Oxygen Delivery Me thod Oxygen Flow Rate Fraction of Inspir ed Oxygen 35 08/01/24 14:00 08/01/24 14:03 08/01/24 15:00 Temperature Pulse Rate 107 H 108 H Pulse Rate [Pulse Oximeter] Respiratory Rate Blood Pressure 133/50 L Blood Pressure [Le ft Arm] Pulse Oximetry 96 95 95 Oxygen Delivery Me thod Oxygen Flow Rate Fraction of Inspir ed Oxygen 08/01/24 15:00 08/01/24 15:00 08/01/24 16:00 Temperature 98.6 F Pulse Rate 110 H Pulse Rate [Pulse Oximeter] 110 H 110 H Respiratory Rate 30 H 26 H Blood Pressure Blood Pressure [Le ft Arm] 156/76 H Pulse Oximetry 95 Oxygen Delivery Me thod High Flow Nasal Ca nnula Oxygen Flow Rate 30 Fraction of Inspir ed Oxygen 35 08/01/24 16:00 08/01/24 16:00 08/01/24 18:00 Temperature 98.6 F Pulse Rate 111 H Pulse Rate [Pulse Oximeter] Respiratory Rate 26 H Blood Pressure 156/76 H Blood Pressure [Le ft Arm] Pulse Oximetry 95 Oxygen Delivery Me thod High Flow Nasal Ca nnula Oxygen Flow Rate 30 Fraction of Inspir ed Oxygen 35 35 35 08/01/24 18:00 08/01/24 20:00 08/01/24 20:00 Temperature 98.7 F 98.8 F Pulse Rate Pulse Rate [Pulse Oximeter] 106 H 110 H Respiratory Rate 30 H 32 H Blood Pressure Blood Pressure [Le ft Arm] 141/80 H 127/68 Pulse Oximetry 93 92 Oxygen Delivery Me thod High Flow Nasal Ca nnula High Flow Nasal Ca nnula Oxygen Flow Rate 30 30 Fraction of Inspir ed Oxygen 35 35 35 08/01/24 22:00 08/01/24 22:00 08/01/24 22:59 Temperature Pulse Rate Pulse Rate [Pulse Oximeter] 105 H Respiratory Rate 28 H Blood Pressure Blood Pressure [Le ft Arm] 120/68 Pulse Oximetry 93 93 Oxygen Delivery Me thod High Flow Nasal Ca nnula Oxygen Flow Rate 30 Fraction of Inspir ed Oxygen 35 30 08/01/24 22:59 08/01/24 23:00 08/02/24 00:00 Temperature Pulse Rate 103 H Pulse Rate [Pulse Oximeter] 105 H Respiratory Rate 28 H Blood Pressure Blood Pressure [Le ft Arm] Pulse Oximetry Oxygen Delivery Me thod Oxygen Flow Rate Fraction of Inspir ed Oxygen 30 08/02/24 00:00 08/02/24 02:00 08/02/24 02:00 Temperature Pulse Rate Pulse Rate [Pulse Oximeter] 104 H 97 Respiratory Rate 28 H 28 H Blood Pressure Blood Pressure [Le ft Arm] 122/62 135/69 Pulse Oximetry 95 94 Oxygen Delivery Me thod High Flow Nasal Ca nnula High Flow Nasal Ca nnula Oxygen Flow Rate 30 30 Fraction of Inspir ed Oxygen 30 30 30 08/02/24 03:05 08/02/24 03:12 08/02/24 04:00 Temperature Pulse Rate Pulse Rate [Pulse Oximeter] 99 Respiratory Rate 32 H Blood Pressure Blood Pressure [Le ft Arm] 132/68 Pulse Oximetry 91 Oxygen Delivery Me thod High Flow Nasal Ca nnula Oxygen Flow Rate 30 Fraction of Inspir ed Oxygen 25 30 30 08/02/24 04:47 08/02/24 06:00 08/02/24 07:29 Temperature Pulse Rate Pulse Rate [Pulse Oximeter] 95 Respiratory Rate 28 H Blood Pressure Blood Pressure [Le ft Arm] 119/63 Pulse Oximetry 94 Oxygen Delivery Me thod High Flow Nasal Ca nnula Oxygen Flow Rate 30 Fraction of Inspir ed Oxygen 35 35 30 08/02/24 07:31 08/02/24 07:32 08/02/24 07:35 Temperature 97.9 F Pulse Rate Pulse Rate [Pulse Oximeter] 95 Respiratory Rate 22 22 Blood Pressure Blood Pressure [Le ft Arm] Pulse Oximetry 94 Oxygen Delivery Me thod Oxygen Flow Rate Fraction of Inspir ed Oxygen 08/02/24 07:47 08/02/24 08:10 08/02/24 09:14 Temperature 97.9 F Pulse Rate 96 Pulse Rate [Pulse Oximeter] 96 Respiratory Rate 22 Blood Pressure Blood Pressure [Le ft Arm] 136/68 Pulse Oximetry 90 Oxygen Delivery Me thod High Flow Nasal Ca nnula Oxygen Flow Rate 30 Fraction of Inspir ed Oxygen 30 30 08/02/24 10:06 08/02/24 10:17 08/02/24 11:00 Temperature 97.8 F Pulse Rate 96 Pulse Rate [Pulse Oximeter] 96 Respiratory Rate 28 H Blood Pressure Blood Pressure [Le ft Arm] 137/78 Pulse Oximetry 91 Oxygen Delivery Me thod High Flow Nasal Ca nnula Oxygen Flow Rate 30 30 Fraction of Inspir ed Oxygen 30 30 Labs Labs: Laboratory Results - last 24 hr 08/01/24 08/01/24 08/02/24 12:37 18:28 06:34 WBC 3.96 L RBC 2.94 L Hgb 10.2 L 11.2 L 9.4 L Hct 30.8 L MCV 105 H MCH 32 MCHC 31 L Plt Count 76 L VBG pH 7.421 VBG pCO2 46 VBG pO2 64.7 H VBG HCO3 30 H Sodium 144 Potassium 4.8 Chloride 111 Carbon Dioxide 29 Anion Gap 4 L BUN 28 Creatinine 1.4 Estimated Creat Clear 39.88 Estimated GFR 52 Glucose 122 H Calcium 8.4
[2024-08-01] MEDS: INSULIN ASPART 100 UNIT/ML SUBCUT (12:27)
[2024-08-01 12:43] LABS: Hemoglobin* 10.2 gm/dL (13.5-17.5)
--- NOTE | 2024-08-01 14:22 | PC.NURSE ---
pt needing increase of 25% total demand in O2 needs from 28% to 35% able to maintain sats at 91%, patient re educated on need for positioning and use of aerobica and IS. Family present all questions answered. Pt otherwise vitally stable and alert and oriented. able to void with some hesitancy smaller voids of 150ml per void. NG contniues to have output from LIS. Patient now resting comfortably.
[2024-08-01 18:37] LABS: Hemoglobin* 11.2 gm/dL (13.5-17.5)
[2024-08-01] MEDS: MOMETASONE IH (21:14)
[2024-08-02] VITALS (20 sets, daily range): BP systolic 119–139; BP diastolic 62–79; PULSE 95–104; RESP 22–32; TEMP 36.6; O2SAT 88–95
[2024-08-02] MEDS: 0.9 % SODIUM CH + KCL 20 mEq/L 1,000 ML 125 ML IV ×2 (03:13→13:11)
--- NOTE | 2024-08-02 06:37 | PC.NURSE ---
[id number] Pt slept during night, able to decrease O2 demand on HFNC from 35% to 30% with O2 still at 92%. Pt NG at 67cm at R nare, LIS with green gastric content output present, NPO with ice chips for comfort, pt tolerating. pt declined placement of SCD's due to being too hot educated on DVT prevention. cough present with sputum production, encouraged pt to use IS and Aerobika.
[2024-08-02 06:51] LABS: HCO3 VBG 30 mmol/L (21-28); PCO2 VBG 46 mmHG (40-50); PO2 VBG 64.7 mmHG (25-47); pH VBG 7.421 (7.32-7.43)
[2024-08-02 07:11] LABS: Hematocrit 30.8 % (37.0-53.0); Hemoglobin* 9.4 gm/dL (13.5-17.5); Mean Corpuscular HGB Conc 31 gm/dL (32-36); Mean Corpuscular Hemoglobin 32 pg (26-34); Mean Corpuscular Volume 105 fL (80-100); Platelet Count* 76 K/uL (140-440); Red Blood Count 2.94 m/uL (4.30-5.90); White Blood Count* 3.96 K/uL (4.50-11.00)
[2024-08-02 07:13] LABS: Slide Review Reflex No
[2024-08-02 07:17] LABS: Chloride* 111 mmol/L (96-114); Potassium* 4.8 mmol/L (3.6-5.1); Sodium* 144 mmol/L (135-149)
[2024-08-02 07:20] LABS: Anion Gap 4 mEq/L (7-15); Blood Urea Nitrogen* 28 mg/dL (7-30); Calcium* 8.4 mg/dL (8.4-10.6); Carbon Dioxide* 29 mmol/L (20-32); Creatinine* 1.4 mg/dL (0.5-1.5); Est. Creatinine Clearance* 39.88; Estimated Glomerular Filt Rate 52 ml/min; Glucose* 122 mg/dL (60-115)
[2024-08-02] MEDS: IPRAT-ALBUT 0.5-2.5 MG/3 ML NEB 1 NEB IH ×2 (07:43→13:11)
--- NOTE | 2024-08-02 07:46 | P.DS_ITS ---
DS: Providers Provider Date Seen: 08/01/24 Date of admission: 07/30/24 10:50 Primary care physician: Lianet Hassan MD Admitting Clinician: Margot Chris MD Consults: 07/30/24 11:40 Consult to Occupational Therapy [CONS] Routine Comment: Reason(s) for OT Consult:: Evaluate and Treat Any Restrictions?:: No Restrictions Consult to Physical Therapy [CONS] Routine Comment: Reason(s) for PT Consult:: Evaluate and Treat Any Restrictions?:: No Restrictions Consult to Respiratory Therapy [CONS] Routine Comment: Reason(s) for RT Consult:: Consult Consult to Muff Winder [CONS] Routine Comment: Reason for Consult:: Social Service Consult 07/31/24 21:42 Consult to Physician [CONS] Routine Comment: Consulting Provider: Erin Lerma Has provider been notified: Yes Attending Physician on discharge: JANNIE Goldstein, PA-C [place] [facility]ist DS: Diagnosis Discharge Diagnosis (1) Acute hypoxic respiratory failure: Status: Acute Problem details: -oxygen saturations on room air reported by EMS in the 80s, initially placed on BiPAP. -in the setting of acute RSV and COPD exacerbation -CXR shows no pleural effusion or pneumothorax. Scattered areas of discoid atelectasis lung bases. Mild pleural thickening right lung laterally -VBG pH 7.346, pCO2 39, PO2 75 -no leukocytosis, lactate 1.1, BC x1 pending -D-dimer 0.53, CRP 7.3, procalcitonin 0.28 -consider further imaging with CT if new or worsening symptoms or no improvement -RT for pulmonary support 07/31: Due to underlying severe COPD with RSV infection. Improved with NG suctioning reducing gastric distension. On high-flow nasal cannula oxygen, antibiotics, bronchodilators and steroids. 08/01: No significant improvement, continues to be quite tachypneic despite therapies as below. Discussed with patient and family transferring to tertiary hospice for higher level care, in agreement. [facility] no [facility]. Aware he will be transferred to [facility] facility. Discussed with Dr. Froylan Kim, [place] senator at [facility]. Accepts for transfer. Awaiting bed availability >8 hours. 08/02: More tired, increased accessory muscle use, u.[place]. senator notified, move up to ICU status, bed approx 2 hours (2) RSV (respiratory syncytial virus infection): Status: Acute Problem details: -RSV+, COVID and influenza negative -respiratory support, symptomatic cares -RT support -OT/PT when able for weakness (3) COPD exacerbation: Status: Acute Problem details: -oxygen supplementation to maintain saturations >88%, weaning as able -alternating DuoNebs and albuterol nebs, budesonide neb bid -continue empiric azithromycin and ceftriaxone as initiated in the ED -prednisone 40 mg daily, received methylprednisolone x1 in the ED -oral prednisone was held when NGT was placed, without immediate initiation of IV steroids which were restarted on 08/02 -incentive spirometry, aerobika, mucinex -RT for pulmonary support Appears to be a fairly severe COPD exacerbation with fairly severe underlying disease. Monitor venous blood gas for possibility of CO2 retention. Increase DuoNebs and prednisone 07/30 08/01: Discussed with RT E and u.[place]. senator, query BiPAP, not recommended at this time, continue with high-flow 08/02: Bipap if continues to decompensate per u.[place]. senator (4) Small bowel obstruction: Status: Acute Problem details: He has had previous umbilical hernia repair. No other abdominal surgeries. NG tube, and surgical consult 08/01: Passing gas. Dark bloody output continues per NG. General surgery consulted, not thought to be a gastric outlet obstruction. Possible component of delayed gastric emptying secondary to gastroparesis from diabetes. Not stable enough for an EGD today. Continue IV PPI b.i.d.. 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 General surgery following (5) Upper GI bleeding: Status: Acute Problem details: No known history of ulcers. Denies daily alcohol use, occasional binges. Monitor serial hemoglobins, vital signs, Protonix IV b.i.d., stop aspirin and enoxaparin, SCDs for VTE PPX -EGD - not stable enough to be completed at this point -hemoglobin 12.4 ->11.1 -> 11.4 -> 10.3 -> 10.2 -next check at 6:00 p.m. 11.2 08/02: 9.4 (6) Lytic lesion of bone on x-ray: Status: Acute Problem details: Right 6th rib. Likely multiple myeloma. rib fractures 3-6 following fall 2 weeks ago, hospitalized at [facility] (7) CKD stage 3b, GFR 30-44 ml/min: Status: Acute Problem details: -creatinine 1.6 -> 1.7 -> 1.9 ->1.4, baseline 1.5-1.7 -avoid nephrotoxic medications, renally dose medications, monitor (8) Thrombocytopenia: Status: Acute Problem details: -chronic, currently 133 -> 107 ->120, previously 105-123. Monitor 08/02: 76 (9) Type 2 diabetes mellitus: Status: Chronic Problem details: -most recent A1c 7.6 -continue glipizide, hold metformin -glucose checks ACHS, insulin sliding scale with tight glucose management while on steroids (10) Multiple myeloma: Status: Chronic Problem details: -continue lenalidomide dosing, using home supply - HOLD -of note this medication does have pulmonary adverse effects which could be contributing to acute respiratory failure - monitor -[facility]: Summary Hospital Course Hospital Course: Decision has been made to seek higher level of care given ongoing respiratory distress, lack of improvement over 48 hours, increase in oxygen needs, new GI bleed too unstable for further workup. Discussed with u.s. senator Dr. Froylan Kim at [facility]. Accepted for transfer, waiting bed availability. Status at Discharge Overall status at discharge: patient is not back to baseline Time Spent with Patient Time attestation: Total time spent providing and/or coordinating discharge services: Time spent: Greater than 30 minutes Exam Narrative: Exam Narrative: PHYSICAL EXAM General: Pleasant but ill Cardiovascular: Tachycardic Pulmonary: Tachypneic, dyspneic but remains very talkative Neurological: Alert, answering questions appropriately Skin: Warm, dry. Const: Vital Signs, click to edit/add: Vital Signs - 24 hr 07/31/24 17:48 07/31/24 17:48 07/31/24 17:48 Temperature 97.9 F Pulse Rate Pulse Rate [Pulse Oximeter] 107 H Respiratory Rate 24 Blood Pressure Blood Pressure [Le ft Arm] 152/71 H Pulse Oximetry 87 L 88 Oxygen Delivery Me thod High Flow Nasal Ca nnula Oxygen Flow Rate Fraction of Inspir ed Oxygen 07/31/24 19:13 07/31/24 19:15 07/31/24 21:00 Temperature 97.2 F L Pulse Rate Pulse Rate [Pulse Oximeter] 105 H Respiratory Rate 28 H Blood Pressure Blood Pressure [Le ft Arm] 148/64 H Pulse Oximetry 84 L Oxygen Delivery Me thod High Flow Nasal Ca nnula Oxygen Flow Rate 30 Fraction of Inspir ed Oxygen 28 28 28 07/31/24 22:51 07/31/24 23:00 07/31/24 23:00 Temperature 97.5 F L Pulse Rate 103 H Pulse Rate [Pulse Oximeter] 108 H Respiratory Rate 22 Blood Pressure Blood Pressure [Le ft Arm] 112/61 Pulse Oximetry 90 90 Oxygen Delivery Me thod High Flow Nasal Ca nnula Oxygen Flow Rate 30 Fraction of Inspir ed Oxygen 28 08/01/24 00:00 08/01/24 00:00 08/01/24 00:02 Temperature Pulse Rate Pulse Rate [Pulse Oximeter] 103 H Respiratory Rate 22 Blood Pressure Blood Pressure [Le ft Arm] 107/54 L Pulse Oximetry 91 Oxygen Delivery Me thod High Flow Nasal Ca nnula Oxygen Flow Rate 30 Fraction of Inspir ed Oxygen 28 26 26 08/01/24 00:09 08/01/24 02:00 08/01/24 02:00 Temperature 98.7 F Pulse Rate Pulse Rate [Pulse Oximeter] 102 H 107 H Respiratory Rate 24 Blood Pressure Blood Pressure [Le ft Arm] 115/58 L Pulse Oximetry 91 Oxygen Delivery Me thod High Flow Nasal Ca nnula Oxygen Flow Rate 30 Fraction of Inspir ed Oxygen 26 26 08/01/24 04:01 08/01/24 04:04 08/01/24 06:00 Temperature 98.8 F Pulse Rate Pulse Rate [Pulse Oximeter] 104 H 107 H Respiratory Rate 20 22 Blood Pressure Blood Pressure [Le ft Arm] 119/61 99/76 Pulse Oximetry 91 90 Oxygen Delivery Me thod High Flow Nasal Ca nnula High Flow Nasal Ca nnula Oxygen Flow Rate 30 30 Fraction of Inspir ed Oxygen 26 26 26 08/01/24 06:00 08/01/24 06:55 08/01/24 06:56 Temperature Pulse Rate Pulse Rate [Pulse Oximeter] Respiratory Rate Blood Pressure Blood Pressure [Le ft Arm] Pulse Oximetry Oxygen Delivery Me thod Oxygen Flow Rate Fraction of Inspir ed Oxygen 26 26 28 08/01/24 07:00 08/01/24 07:31 08/01/24 07:37 Temperature Pulse Rate 103 H Pulse Rate [Pulse Oximeter] Respiratory Rate Blood Pressure Blood Pressure [Le ft Arm] Pulse Oximetry 86 L Oxygen Delivery Me thod Oxygen Flow Rate Fraction of Inspir ed Oxygen 90 08/01/24 07:39 08/01/24 08:50 08/01/24 09:00 Temperature 97.7 F 98.1 F Pulse Rate 109 H Pulse Rate [Pulse Oximeter] 106 H Respiratory Rate 30 H Blood Pressure Blood Pressure [Le ft Arm] 123/66 Pulse Oximetry 86 L 87 L Oxygen Delivery Me thod High Flow Nasal Ca nnula Oxygen Flow Rate Fraction of Inspir ed Oxygen 08/01/24 09:00 08/01/24 09:30 08/01/24 10:00 Temperature Pulse Rate 105 H Pulse Rate [Pulse Oximeter] 106 H Respiratory Rate 30 H Blood Pressure Blood Pressure [Le ft Arm] Pulse Oximetry 91 Oxygen Delivery Me thod Oxygen Flow Rate Fraction of Inspir ed Oxygen 35 08/01/24 10:00 08/01/24 10:00 08/01/24 10:02 Temperature 98.7 F Pulse Rate Pulse Rate [Pulse Oximeter] 105 H Respiratory Rate 30 H Blood Pressure Blood Pressure [Le ft Arm] 138/65 Pulse Oximetry 91 91 91 Oxygen Delivery Me thod High Flow Nasal Ca nnula Oxygen Flow Rate 30 Fraction of Inspir ed Oxygen 35 08/01/24 10:30 08/01/24 11:00 08/01/24 12:00 Temperature Pulse Rate 105 H 107 H Pulse Rate [Pulse Oximeter] Respiratory Rate Blood Pressure Blood Pressure [Le ft Arm] Pulse Oximetry 92 93 87 L Oxygen Delivery Me thod Oxygen Flow Rate Fraction of Inspir ed Oxygen 08/01/24 12:00 08/01/24 12:01 08/01/24 12:02 Temperature Pulse Rate 106 H 101 H Pulse Rate [Pulse Oximeter] Respiratory Rate Blood Pressure 126/72 Blood Pressure [Le ft Arm] Pulse Oximetry 88 90 Oxygen Delivery Me thod Oxygen Flow Rate Fraction of Inspir ed Oxygen 35 08/01/24 13:00 08/01/24 14:00 08/01/24 14:00 Temperature Pulse Rate 104 H 107 H Pulse Rate [Pulse Oximeter] Respiratory Rate Blood Pressure Blood Pressure [Le ft Arm] Pulse Oximetry 93 96 Oxygen Delivery Me thod Oxygen Flow Rate Fraction of Inspir ed Oxygen 35 08/01/24 14:03 Temperature Pulse Rate 108 H Pulse Rate [Pulse Oximeter] Respiratory Rate Blood Pressure 133/50 L Blood Pressure [Le ft Arm] Pulse Oximetry 95 Oxygen Delivery Me thod Oxygen Flow Rate Fraction of Inspir ed Oxygen DS: Data Data Completed and Pending Labs on day of discharge: Labs from last 24 hours 08/01/24 08/01/24 07/31/24 12:37 06:03 22:09 WBC 6.51 8.20 RBC 3.26 L 3.61 L Hgb 10.2 L 10.3 L 11.4 L Hct 32.8 L 35.5 L MCV 101 H 98 MCH 32 32 MCHC 31 L 32 RDW Coeff of [place] 16.5 H Plt Count 120 L 126 L Neut % (Auto) 88.7 H Lymph % (Auto) 4.6 L [place] % (Auto) 6.0 Eos % (Auto) 0.1 Baso % (Auto) 0.1 Neut # (Auto) 7.30 H Lymph # (Auto) 0.40 L [place] # (Auto) 0.50 Eos # (Auto) 0.01 Baso # (Auto) 0.01 Abs Immat Gran (auto) 0.04 Imm/Tot Granulo (auto) 0.5 D-Dimer Quant (PE/DVT) VBG pH 7.384 VBG pCO2 51 H VBG pO2 45.1 VBG HCO3 30 H Sodium 141 Potassium 4.3 Chloride 104 Carbon Dioxide 30 Anion Gap 7 BUN 41 H Creatinine 1.9 H Estimated Creat Clear 29.38 Estimated GFR 36 Glucose 153 H Lactate 1.4 Calcium 8.8 Troponin I 0.03 C-Reactive Protein 2.9 H 07/31/24 19:22 WBC RBC Hgb Hct MCV MCH MCHC RDW Coeff of [place] Plt Count Neut % (Auto) Lymph % (Auto) [place] % (Auto) Eos % (Auto) Baso % (Auto) Neut # (Auto) Lymph # (Auto) [place] # (Auto) Eos # (Auto) Baso # (Auto) Abs Immat Gran (auto) Imm/Tot Granulo (auto) D-Dimer Quant (PE/DVT) 0.31 VBG pH 7.474 H VBG pCO2 41 VBG pO2 42.4 VBG HCO3 30 H Sodium Potassium Chloride Carbon Dioxide Anion Gap BUN Creatinine Estimated Creat Clear Estimated GFR Glucose Lactate Calcium Troponin I 0.02 C-Reactive Protein Preliminary micro results at discharge 07/30/24 06:52 Blood Culture - Preliminary Blood NO GROWTH AFTER 48 HOURS Imaging Chest x-ray: Attestation: I have reviewed the pertinent imaging results. Radiologist's impression: Lines and tubes: Interval placement of an enteric tube with the tip and side-port in the stomach fundus. Cardiovascular and mediastinum: Heart size and vasculature are normal in caliber and appearance. Lungs and pleural spaces: No focal consolidation, pleural effusion, or pneumothorax. Bones and soft tissues: Redemonstrated irregular masslike sclerotic lesion within the right lateral 6th rib, better characterized on the same-day chest CT. CTA chest: Attestation: I have reviewed the pertinent imaging results. Radiologist's impression: Heart and vasculature: Contrast opacification of the pulmonary arterial tree is adequate. No sign of pulmonary embolism. Mild cardiomegaly. Coronary artery calcifications. Thoracic aorta and pulmonary artery are normal in caliber. Lungs and pleura: Scattered peribronchial thickening with bibasilar tree-in-bud nodularity. No suspicious nodules or infiltrates. No pleural effusions, pleural thickening, or pneumothorax. Lymph nodes/mediastinum: No mediastinal, hilar, or axillary adenopathy. Chest wall: No masses. Upper abdomen: Please refer to same-day CT abdomen/pelvis for further evaluation. Bones: Redemonstration of indeterminate right anterolateral 6th rib deformity, also seen on prior chest x-ray performed November 18, 2021. Subacute appearing right 3rd, 4th, 5th, 6th anterolateral nondisplaced rib fractures. Age-indeterminate L1 compression deformity. IMPRESSION: No pulmonary embolism as questioned. Scattered peribronchial thickening with bibasilar tree-in-bud nodularity, likely infectious/inflammatory in etiology, including bronchitis or aspiration in the appropriate clinical setting. No focal consolidations. Redemonstration of indeterminate right anterolateral 6th rib deformity, also seen on prior chest x-ray performed November 18, 2021 of uncertain clinical significance. Recommend correlation with physical examination and prior cross-sectional imaging if available.. Subacute appearing right 3rd, 4th, 5th, 6th anterolateral nondisplaced rib fractures (including involvement of indeterminate right 6 rib deformity). Please note that all CT scans at this facility use dose modulation, iterative reconstruction, and/or weight-based dosing when appropriate to reduce radiation dose to as low as reasonably achievable. Dictated by Byron Land MD @ 07/31/2024 9:20:49 PM ----- ADDENDUM ----- Addendum: Age-indeterminate T12 compression deformity. Recommend correlation with point tenderness. CT abdomen pelvis: Attestation: I have reviewed the pertinent imaging results. Radiologist's impression: Lower chest: Please refer to same-day CT chest for further evaluation. Liver: Unremarkable. Normal in size and attenuation. No suspicious masses. Gallbladder and bile ducts: Unremarkable. No stones or inflammation. No biliary dilatation. Pancreas: Fatty atrophy. No mass or inflammation. Spleen: Unremarkable. Normal in size. No masses. Adrenal glands: Unremarkable. No nodules. Kidneys: Horseshoe kidney. No suspicious masses, stones, or hydronephrosis. GI tract: Moderately distended fluid-filled stomach. Additional multiple loops of mildly dilated proximal small bowel without definite transition point, but collapsed loops of distal small bowel. Moderate colonic stool burden. Colonic diverticulosis without diverticulitis. Normal in caliber. No sign of mass or inflammation. Normal appendix. Vasculature: Aortoiliac arterial calcifications. Abdominal aorta is normal in caliber. Mesenteric arteries are patent. Lymph nodes: No lymphadenopathy. Peritoneum/Abdominal Wall: Unremarkable. No sign of mass or infiltration. No free air or significant free fluid. Pelvis: Unremarkable. Bones: Age-indeterminate T12 compression deformity. Recommend correlation with point tenderness. IMPRESSION: Multiple loops of mildly dilated proximal small bowel without definite transition point, but with collapsed loops of distal small bowel, concerning for developing small bowel obstruction. Associated moderately distended fluid-filled stomach. Age-indeterminate T12 compression deformity. Recommend correlation with point tenderness. Additional chronic findings as above. CXR 07/30: Attestation: I have reviewed the pertinent imaging results. Radiologist's impression: Cardiovascular and mediastinum: Normal heart size with mild aortic tortuosity. Lungs and pleural space: No pleural effusion or pneumothorax. Scattered areas of discoid atelectasis lung bases. Mild pleural thickening right lung laterally. Bones and soft tissues: Stable right rib deformity. Discharge Plan Discharge Disposition: [facility] Date of Admission: 07/30/24 10:50 Attending Provider on Discharge: Karyna Lindo Primary Care Provider: Lianet Hassan Condition: Critical Discharge Orders: Transfer of Care to Other Hospital (ORDER); Ordered 08/02/24 Ordered By: Karyna Lindo Oxygen: Yes Oxygen Delivery Method: High Flow Oxygen Flow Rate: 35/30 Urinary Catheter: No Services not available here: ICU
[2024-08-02] MEDS: MOMETASONE IH (09:06)
[2024-08-02] MEDS: PANTOPRAZOLE SODIUM 40 MG INJ IVP (09:07)
[2024-08-02] MEDS: BUDESONIDE 0.5 MG/2ML NEB NEB (09:08)
[2024-08-02] MEDS: cefTRIAXone 1 GM in 0.9 % SODIUM CHLORIDE Mini-bag 100 ML IVPB (09:08)
[2024-08-02] MEDS: SODIUM CHLORIDE 0.9 % (FLUSH) 10 ML SYRINGE 5 ML IVF (09:12)
[2024-08-02] MEDS: AZITHROMYCIN 500 MG in 0.9 % SODIUM CHLORIDE 250 ml 250 ML 255 MG IVPB (10:18)
--- NOTE | 2024-08-02 11:44 | P.GSPN_ITS ---
Subjective Subjective Date Seen: 08/02/24 Interval history: Power feels more short of breath today. He feels more tired overall. He states he continues to pass gas from below but no bowel movement. Denies abdominal pain. He states that the ice chips are the most comfortable thing gaudencio t he has right now and he would like a diet Coke. Exam Narrative: Exam Narrative: General: Patient is alert and oriented Respiratory: The patient is having repaired occipital breathing and is tachypneic. CV mildly tachycardic at low 100 Abdomen: Soft, nontender, protuberant. Positive bowel sounds NG output was 1375 - now is clear of blood; took in 400 in p.o. Const: Vital Signs, click to edit/add: Vital Signs - 24 hr 08/01/24 12:00 08/01/24 12:00 08/01/24 12:01 Temperature Pulse Rate 107 H 106 H Pulse Rate [Pulse Oximeter] Respiratory Rate Blood Pressure 126/72 Blood Pressure [Le ft Arm] Pulse Oximetry 87 L 88 Oxygen Delivery Me thod Oxygen Flow Rate Fraction of Inspir ed Oxygen 35 08/01/24 12:02 08/01/24 13:00 08/01/24 14:00 Temperature Pulse Rate 101 H 104 H Pulse Rate [Pulse Oximeter] Respiratory Rate Blood Pressure Blood Pressure [Le ft Arm] Pulse Oximetry 90 93 Oxygen Delivery Me thod Oxygen Flow Rate Fraction of Inspir ed Oxygen 35 08/01/24 14:00 08/01/24 14:03 08/01/24 15:00 Temperature Pulse Rate 107 H 108 H Pulse Rate [Pulse Oximeter] Respiratory Rate Blood Pressure 133/50 L Blood Pressure [Le ft Arm] Pulse Oximetry 96 95 95 Oxygen Delivery Me thod Oxygen Flow Rate Fraction of Inspir ed Oxygen 08/01/24 15:00 08/01/24 15:00 08/01/24 16:00 Temperature 98.6 F Pulse Rate 110 H Pulse Rate [Pulse Oximeter] 110 H 110 H Respiratory Rate 30 H 26 H Blood Pressure Blood Pressure [Le ft Arm] 156/76 H Pulse Oximetry 95 Oxygen Delivery Me thod High Flow Nasal Ca nnula Oxygen Flow Rate 30 Fraction of Inspir ed Oxygen 35 08/01/24 16:00 08/01/24 16:00 08/01/24 18:00 Temperature 98.6 F Pulse Rate 111 H Pulse Rate [Pulse Oximeter] Respiratory Rate 26 H Blood Pressure 156/76 H Blood Pressure [Le ft Arm] Pulse Oximetry 95 Oxygen Delivery Me thod High Flow Nasal Ca nnula Oxygen Flow Rate 30 Fraction of Inspir ed Oxygen 35 35 35 08/01/24 18:00 08/01/24 20:00 08/01/24 20:00 Temperature 98.7 F 98.8 F Pulse Rate Pulse Rate [Pulse Oximeter] 106 H 110 H Respiratory Rate 30 H 32 H Blood Pressure Blood Pressure [Le ft Arm] 141/80 H 127/68 Pulse Oximetry 93 92 Oxygen Delivery Me thod High Flow Nasal Ca nnula High Flow Nasal Ca nnula Oxygen Flow Rate 30 30 Fraction of Inspir ed Oxygen 35 35 35 08/01/24 22:00 08/01/24 22:00 08/01/24 22:59 Temperature Pulse Rate Pulse Rate [Pulse Oximeter] 105 H Respiratory Rate 28 H Blood Pressure Blood Pressure [Le ft Arm] 120/68 Pulse Oximetry 93 93 Oxygen Delivery Me thod High Flow Nasal Ca nnula Oxygen Flow Rate 30 Fraction of Inspir ed Oxygen 35 30 08/01/24 22:59 08/01/24 23:00 08/02/24 00:00 Temperature Pulse Rate 103 H Pulse Rate [Pulse Oximeter] 105 H Respiratory Rate 28 H Blood Pressure Blood Pressure [Le ft Arm] Pulse Oximetry Oxygen Delivery Me thod Oxygen Flow Rate Fraction of Inspir ed Oxygen 30 08/02/24 00:00 08/02/24 02:00 08/02/24 02:00 Temperature Pulse Rate Pulse Rate [Pulse Oximeter] 104 H 97 Respiratory Rate 28 H 28 H Blood Pressure Blood Pressure [Le ft Arm] 122/62 135/69 Pulse Oximetry 95 94 Oxygen Delivery Me thod High Flow Nasal Ca nnula High Flow Nasal Ca nnula Oxygen Flow Rate 30 30 Fraction of Inspir ed Oxygen 30 30 30 08/02/24 03:05 08/02/24 03:12 08/02/24 04:00 Temperature Pulse Rate Pulse Rate [Pulse Oximeter] 99 Respiratory Rate 32 H Blood Pressure Blood Pressure [Le ft Arm] 132/68 Pulse Oximetry 91 Oxygen Delivery Me thod High Flow Nasal Ca nnula Oxygen Flow Rate 30 Fraction of Inspir ed Oxygen 25 30 30 08/02/24 04:47 08/02/24 06:00 08/02/24 07:29 Temperature Pulse Rate Pulse Rate [Pulse Oximeter] 95 Respiratory Rate 28 H Blood Pressure Blood Pressure [Le ft Arm] 119/63 Pulse Oximetry 94 Oxygen Delivery Me thod High Flow Nasal Ca nnula Oxygen Flow Rate 30 Fraction of Inspir ed Oxygen 35 35 30 08/02/24 07:31 08/02/24 07:32 08/02/24 07:35 Temperature 97.9 F Pulse Rate Pulse Rate [Pulse Oximeter] 95 Respiratory Rate 22 22 Blood Pressure Blood Pressure [Le ft Arm] Pulse Oximetry 94 Oxygen Delivery Me thod Oxygen Flow Rate Fraction of Inspir ed Oxygen 08/02/24 07:47 08/02/24 08:10 08/02/24 09:14 Temperature 97.9 F Pulse Rate 96 Pulse Rate [Pulse Oximeter] 96 Respiratory Rate 22 Blood Pressure Blood Pressure [Le ft Arm] 136/68 Pulse Oximetry 90 Oxygen Delivery Me thod High Flow Nasal Ca nnula Oxygen Flow Rate 30 Fraction of Inspir ed Oxygen 30 30 08/02/24 10:06 08/02/24 10:17 08/02/24 11:00 Temperature 97.8 F Pulse Rate 96 Pulse Rate [Pulse Oximeter] 96 Respiratory Rate 28 H Blood Pressure Blood Pressure [Le ft Arm] 137/78 Pulse Oximetry 91 Oxygen Delivery Me thod High Flow Nasal Ca nnula Oxygen Flow Rate 30 30 Fraction of Inspir ed Oxygen 30 30 08/02/24 11:34 08/02/24 11:35 Temperature 97.8 F Pulse Rate Pulse Rate [Pulse Oximeter] 96 Respiratory Rate 26 H Blood Pressure Blood Pressure [Le ft Arm] Pulse Oximetry 92 Oxygen Delivery Me thod High Flow Nasal Ca nnula Oxygen Flow Rate 30 Fraction of Inspir ed Oxygen 30 30 Labs/Imaging Labs Labs: Hemoglobin is slightly lower today at 9.4. White blood cell count is 3.9. Electrolytes within normal limits. Creatinine today improved. CRP today is improved. Platelets are 76 from 120 Progress Note:A&P Assessment and plan (1) Upper GI bleeding: Status: Acute (2) Small bowel obstruction: Status: Acute (3) CKD stage 3b, GFR 30-44 ml/min: Status: Acute (4) Thrombocytopenia: Status: Acute (5) Acute hypoxic respiratory failure: Status: Acute (6) RSV (respiratory syncytial virus infection): Status: Acute (7) COPD exacerbation: Status: Acute Plan The patient is a 78-year-old male with a history of multiple myeloma, COPD and type 2 diabetes with RSV, with acute hypoxic respiratory failure and concern for small-bowel obstruction and GI bleed. -NG output in the past 24 hours was almost a L. output now is nonbloody. -agree with continuing PPI -patient has been passing flatus has not had a bowel movement. Suspect partial obstruction versus partial ileus or gastroparesis from diabetes and acute illness - continue NG decompression for now until he has antegrade bowel function though NG tube is likely hindering somewhat his ability to cough up secretions. -patient is on transfer list to higher level care given respiratory status. -will continue to follow along well patient is here as an inpatient
[2024-08-02] MEDS: METHYLPREDNISOLONE SOD SUCC 62.5 MG/ML (125) 125 MG IVP (12:19)
--- NOTE | 2024-08-02 15:08 | PC.NURSE ---
Pt alert and oriented. Pt cooperative with interventions. Pt NPO; Pt?s noon blood sugar is 107 (no intervention).?Pt in bed all shift; Pt refused to get up in chair D/T Pt feeling like it's harder to breathe when up in chair. Pt had no complaints of pain. Pt?s NG at 67. Pt has been on [place] all shifts-see EMR. Pt has increased the work of breathing. Pt?s BP WNL, Pt RR 20?s- low 30?s. Goal for oxygen is 86-92% per RT. Afebrile able to maintain. Pt?s tele NSR. Pt has started coughing and attempting to expel phlegm. Pt continued to use aerobika when awake. Pt states he is more tired today and slept most of shift. Pt accepted to [facility] for higher level of care nurse to nurse given to Paz HUANG. EMS arrived for transfer. Pt?s IV and NG left in place. Pt hooked up to EMS [place] and hospital monitor. Pt?s daughters were at bedside and brought Pt?s belongings with them.
== END 2024-08-02 14:25 | disposition short-term general hospital (02) | DRG 190 ==
LOC: ED 08:32 → MEDSURG 10:43
PROVIDERS: Family Medicine; Physician Assistant; Admitting Provider Family Medicine; Emergency Provider Family Medicine; PCP Family Medicine; Visit Provider Family Medicine
DX: J44.0 Chronic obstructive pulmonary disease with (acute) lower respiratory infection (principal); J96.01 Acute respiratory failure with hypoxia; C90.00 Multiple myeloma not having achieved remission; J98.11 Atelectasis; K56.609 Unspecified intestinal obstruction, unspecified as to partial versus complete obstruction; K92.2 Gastrointestinal hemorrhage, unspecified; D62 Acute posthemorrhagic anemia; J22 Unspecified acute lower respiratory infection; B97.4 Respiratory syncytial virus as the cause of diseases classified elsewhere; J44.1 Chronic obstructive pulmonary disease with (acute) exacerbation; D69.6 Thrombocytopenia, unspecified; E11.22 Type 2 diabetes mellitus with diabetic chronic kidney disease; N18.32 Chronic kidney disease, stage 3b; H91.8X3 Other specified hearing loss, bilateral; I44.4 Left anterior fascicular block; Z97.4 Presence of external hearing-aid
CPT/HCPCS: 36415; 71045; 71275; 74177; 80048; 80053; 81003; 82803; 82962; 83605; 83735; 83880; 84145; 84484; 85018; 85025; 85027; 85379; 86140; 87040; 87070; 87338; 87449; 87631; 87899; 93005; 94640; 94761; 99284; 99291; A9270; J0456; J0696; J0780; J1171; J1650; J2060; J2270; J2405; J2470; J2919; J3475; J7050; J7512; J7626; Q9967

== ENCOUNTER 2024-08-02 14:00 | Outpatient (CLI) | payer OTHER, SELFPAY | END 2024-08-02 14:01 | disposition home or self-care (01) | PROVIDERS: PCP Family Medicine; Visit Provider Emergency Medicine Emergency Medical Services | DX: J96.01 Acute respiratory failure with hypoxia (principal); K56.609 Unspecified intestinal obstruction, unspecified as to partial versus complete obstruction; B33.8 Other specified viral diseases | CPT/HCPCS: A0425; A0434 ==

== ENCOUNTER 2024-11-04 13:47 | Outpatient (CLI) | payer MEDICARE, SELFPAY | END 2024-11-04 13:48 | disposition home or self-care (01) | PROVIDERS: PCP Family Medicine; Visit Provider Nurse Practitioner Family | DX: L29.9 Pruritus, unspecified (principal) | CPT/HCPCS: 80053; 84443; 85025 ==